=== PATIENT | female | born 1945 | race Two or more races ===

== ENCOUNTER 2020-05-04 10:56 | Outpatient (REF) | payer MEDICARE, SELFPAY ==
[2020-05-04 12:22] LABS: Free T4 (Free Thyroxine) 0.81 ng/dL (0.71-1.85); Thyroid Stimulating Hormone 1.16 mIU/mL (0.32-4.0)
== END 2020-05-04 10:57 | disposition home or self-care (01) ==
LOC: HO.LABR 10:56
PROVIDERS: PCP Internal Medicine; Visit Provider Internal Medicine Endocrinology, Diabetes & Metabolism
DX: E04.2 Nontoxic multinodular goiter (principal)
CPT/HCPCS: 36415; 84439; 84443

== ENCOUNTER 2020-05-11 10:52 | Outpatient (REF) | payer MEDICARE, SELFPAY ==
--- NOTE | 2020-05-11 11:59 | PM.OP ---
Brief Operative Note Date of procedure: 05/11/20 Pre-op diagnosis: Nontoxic multinodular goiter Post-op diagnosis: same Procedure: Fine-needle aspiration biopsy of right lower pole thyroid nodule. This procedure was explained to the patient. Alternatives, risks and benefits were discussed. Written consent was obtained. After sterile preparation of the skin, fine-needle aspiration biopsy of right lower pole thyroid nodule size 1.2 x 0.8 x 1.5 cm was performed under direct ultrasound guidance to confirm accurate needle placement. Four passes were performed with 25 gauge needles. Sample was submitted to cytology, initial cytology reading was borderline. One extra pass spent for with a 25 gauge needle. 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 Patient tolerated procedure well. Aftercare instructions were provided. Impression: uncomplicated fine-needle aspiration biopsy of Right lower pole thyroid nodule under direct ultrasound guidance. Surgeon: Jake Amaya MD Anesthesia: local ( Lidocaine 1% 2 mL) Estimated blood loss (mL): 0 Condition: stable Disposition: same day
[2020-05-11] MEDS: Lidocaine HCl 1 % MPF 5 ML VIAL SUBCUT (13:19)
== END 2020-05-11 10:53 | disposition home or self-care (01) ==
LOC: HO.US 10:52
PROVIDERS: PCP Internal Medicine; Visit Provider Internal Medicine Endocrinology, Diabetes & Metabolism
DX: E04.2 Nontoxic multinodular goiter (principal)
CPT/HCPCS: 10005; 88172; 88173; 88177

== ENCOUNTER → 2020-05-26 09:41 | Outpatient (BNVA) | payer MEDICARE, SELFPAY | PROVIDERS: PCP Internal Medicine; Referring Provider Internal Medicine; Visit Provider Internal Medicine Endocrinology, Diabetes & Metabolism | DX: E04.2 Nontoxic multinodular goiter (principal); Z79.899 Other long term (current) drug therapy | CPT/HCPCS: 99213 ==

== ENCOUNTER 2020-07-25 08:37 | Day surgery (SDC) | payer MEDICARE, SELFPAY ==
[2020-07-19 13:16] VITALS: BMI 42.7
--- NOTE | 2020-07-24 09:01 | HO.ANESPROP2 ---
HPI - Anesthesia Eval Consult details Narrative: 74yo F for Colonoscopy PMFSH Past Medical History Medical History Constipation due to opioid therapy Essential hypertension Hypovitaminosis D Insomnia Lumbar degenerative disc disease Non-toxic multinodular goiter Pure hypercholesterolemia Renal calculi UTI (urinary tract infection) Family History Family History Father Medical history unknown Mother Lung cancer Colon cancer Surgical History Surgical History History of section History of esophagogastroduodenoscopy (EGD) History of left knee replacement History of lithotripsy History of lumpectomy of left breast Hx of dilation and curettage Hx of hand surgery Social History Social History Smoking Status: Unknown if ever smoked Use of substances other than those prescribed or required for medical reasons: No Advance Directives Information Provided: No Meds Allergies Allergy/AdvReac Type Severity Reaction Status Date / Time cat dander [CAT DANDER] Allergy Mild skinrash Verified 05/22/20 11:37 mite-Dermatophagoides Allergy Mild watery Verified 05/22/20 11:37 farinae, skyla itchy [DUST MITES] eyes, sneezing Home Medications Medication Instructions Recorded Confirmed Type acetaminophen 325 mg tablet 325 mg PO BID PRN tab 05/22/20 07/19/20 History albuterol sulfate 90 mcg/actuation 1 - 2 puff PO Q4-6H PRN 05/22/20 07/19/20 History aerosol inhaler amlodipine 5 mg tablet 5 mg PO DAILY 05/22/20 07/19/20 History aspirin 81 mg tablet,delayed 81 mg PO DAILY 05/22/20 07/19/20 History release bisacodyl 5 mg tablet,delayed mg PO 05/22/20 05/26/20 History release cetirizine 10 mg tablet 10 mg PO DAILY 05/22/20 07/19/20 History fluticasone propionate 50 1 spray INTRANASAL DAILY 05/22/20 07/19/20 History mcg/actuation nasal spray,suspension furosemide 40 mg tablet 40 mg PO DAILY 05/22/20 07/19/20 History lactulose 10 gram/15 mL oral 10 g PO DAILY PRN 05/22/20 07/19/20 History solution letrozole 2.5 mg tablet 2.5 mg PO DAILY 05/22/20 07/19/20 History losartan 50 mg tablet 50 mg PO DAILY 05/22/20 07/19/20 History mometasone-formoterol HFA 100 2 puff PO BID 05/22/20 07/19/20 History mcg-5 mcg/actuation aerosol inhaler montelukast 10 mg tablet 10 mg PO DAILY 05/22/20 07/19/20 History carlycignfsl-vvyhxddy-saveei tablet 1 tab PO DAILY 05/22/20 07/19/20 History olopatadine 0.1 % eye drops 1 - 2 drp OPHTHALMIC (EYE) BID 05/22/20 07/19/20 History omega-3 fatty acids 1,000 mg 1,000 mg PO DAILY 05/22/20 07/19/20 History capsule omeprazole 20 mg capsule,delayed 20 mg PO DAILY 05/22/20 07/19/20 History release pyridoxine (vitamin B6) 100 mg 100 mg PO DAILY 05/22/20 07/19/20 History tablet sertraline 100 mg tablet 3 mg PO Q OTHER DAY PRN 05/22/20 07/19/20 History tiotropium bromide 18 mcg capsule 1 cap INHALATION DAILY 05/22/20 07/19/20 History with inhalation device tizanidine 4 mg tablet 4 mg PO TID 05/22/20 07/19/20 History trazodone 150 mg tablet 150 mg PO BEDTIME 05/22/20 07/19/20 History cholecalciferol (vitamin D3) 25 25 mcg PO DAILY 05/23/20 07/19/20 History mcg (1,000 unit) capsule sertraline 25 mg tablet 25 mg PO DAILY 05/26/20 07/19/20 History Exam Exam Date and Time: July 24, 2020 09 Height,Weight and Vital Signs: Height 5 ft 4 in Weight 112.945 kg Pertinent Lab Results Pertinent Lab Results: Laboratory Tests 03/24/20 03/24/20 10:22 10:22 WBC 5.2 Hgb 11.0 L Hct 36.2 L Plt Count 178 Sodium 140 Potassium 4.1 Chloride 102 BUN 19 H Creatinine 1.09 Assessment and Plan Assessment Anesthesia Assessment: Chart Reviewed
[2020-07-25 09:01] VITALS: BP 139/89; PULSE 77; RESP 18; TEMP 36.2; O2SAT 96
[2020-07-25] MEDS: Lactated Ringers 1,000 ML 100 ML IVCONT (09:15)
--- NOTE | 2020-07-25 09:15 | P.OP_ITS ---
Operative Note Operative Note Date of Service: 07/25/20 Narrative: Pre-op diagnosis: screening Post-op diagnosis: other (polyps, diverticulosis, hemorrhoids) Procedure: COLONOSCOPY TILL CECUM WITH BIOPSIES AND SNARE POLYPECTOMY AND SUBMUCOSAL INJECTION Consent: Indications for the procedure and potential complications of bleeding, perforation, reaction to medications and missed diagnosis were discussed with the patient and informed consent was obtained. Instrument: Olympus PCF H 190 L variable stiffness pediatric colonoscope Monitoring: Vital signs and clinical assessment, intermittent blood pressure monitoring, continuous EKG monitoring, Pulse oximetry and Carbon Dioxide monitoring were done throughout the procedure. Colon withdrawl time was 42 minutes. Procedure: The patient was placed in the left lateral decubitis position and pre-procedure medications were administered. After a digital rectal examination of the ano-rectum, the video colonoscope was inserted into the rectum and advanced through the colon to the cecum. The colonoscope was slowly withdrawn in a retrograde panoramic fashion and the colon mucosa was carefully examined including a retroflexed view of the rectum. Findings and interventions are described below. Procedure Difficulty: Colon was long and tortuous and there was spasm and recurrent loop formation. LLQ pressure applied to intubate the transverse colon/cecum Findings: Terminal Ileum: Not evaluated Cecum: A 7-8 mm sessile polyp seen on initial intubation of the cecum and raised with 3 cc of normal saline. Colonoscope pushed back into the AC due to colon spasm and polyp was not visualized on subsequent intubation of the cecum. Ascending Colon: Two 10-15 mm sessile polyps removed with a hot snare - (one polyp was not retrieved) and moderate diverticulosis. Transverse Colon: Two 10-12 mm sessile polyps removed with a hot snare and moderate diverticulosis. Descending Colon: Moderate diverticulosis Sigmoid Colon: A 10 mm sessile polyp removed with a hot snare and a 4-5 mm sessile polyp removed with a cold bx. Moderate diverticulosis Rectum: Normal Ano-rectum: Moderate internal hemorrhoids Colon preparation: Fair despite copious irrigation Impression and Post Procedure Diagnosis: Colonoscopy Findings: Six polyps removed - one not retreived. Cecal polyp briefly visualized and not removed. Moderate diverticulosis seen in the entire colon Moderate hemorrhoids on retroflexed exam. Plan: Await pathology results Patient has an appointment on 08/15/20 in the [facility] with [facility] Tilley. Repeat Colonoscopy interval based on path results - in 12 months due to fair prep and cecal polyp which was could not be removed (adult colonoscope for future colonoscopies). Above findings were reviewed with the patient and colon polyps and d iverticulosis handouts were given in the discharge area Surgeon: Faizan Avila MD Anesthesia: MAC (Neeta Beauchamp CRNA & Dr Ellis) Estimated blood loss (mL): 0 Pathology: other (A. AC polyps x1, B. TC polyps x 2, C. SC polyp x 2) Condition: stable Disposition: PACU
--- NOTE | 2020-07-25 09:15 | MHC.SHP ---
Pre-Procedural Eval Section B Chief Complaint: FHX OF COLON CANCER Relevant Family History (Specify if Yes): Yes Relevant Social History: None Present Medications: see Short Stay Collaborative assessment Medical History: Significant History ( Left breast Invasive Ductal Carcinoma. Dysphasia. Snoring (no sleep study on file). Obesity. Asthma-controlled. Hypertension. Hypercholesterolemia. Osteoarthritis. gastroesophageal reflux disease (GERD). chronic obstructive pulmonary di) History of Previous Operations: Relevant previous surgery/procedure and date(s) (Colonoscopy (while incarcerated) 2010 section left knee replacement carpal tunnel release Left breast needle localized lumpectomy and sentinel node excision ([facility]) 11/2016 port placed right chest 01/2017 chest port removed 03/2018 Right long trigger finger release 02/17/2019 ) Allergies: Allergies Allergy/AdvReac Type Severity Reaction Status Date / Time cat dander [CAT DANDER] Allergy Mild skinrash Verified 05/22/20 11:37 mite-Dermatophagoides Allergy Mild watery Verified 05/22/20 11:37 farinae, skyla itchy [DUST MITES] eyes, sneezing Review of Systems Sugical H&P ROS: Negative: Constitution, Cardiovascular and Respiratory and Yes, Specify: Gastrointestinal (constipation) Exam Surgical H&P Exam: Normal: Heart, Normal: Lungs and Normal: Abdomen Plan Diagnosis/Plan: Unchanged I have reviewed the history and physical and performed a pertinent physical examination on my patient. No changes have occurred unless specified.
[2020-07-25 10:25] VITALS: BP 123/78; PULSE 70; RESP 16; TEMP 37.4; O2SAT 98
[2020-07-25 10:30] VITALS: BP 133/81; PULSE 70; RESP 16; O2SAT 97
[2020-07-25 10:35] VITALS: BP 127/78; PULSE 89; RESP 16; O2SAT 97
[2020-07-25 10:40] VITALS: BP 164/95; PULSE 68; RESP 16; TEMP 36.7; O2SAT 95
[2020-07-25 10:54] VITALS: BP 130/73; PULSE 77; RESP 16; O2SAT 97
--- NOTE | 2020-07-25 11:42 | PC.NURSE ---
[employer] SPECIALIST USED FOR INSTRUCTIONS DR BENNETT ALSO SPOKE TO PT IN DISCHARGE AREA
--- NOTE | 2020-07-25 11:54 | HO.POSTANES ---
Post Anesthesia Evaluation Post Anesthesia Evaluation Vital Signs: Vital Signs Temp Pulse Resp BP Pulse Ox 07/25/20 10:54 98.1 F 77 16 130/73 97 07/25/20 10:40 98.1 F 68 16 164/95 H 95 07/25/20 10:35 89 16 127/78 97 07/25/20 10:30 70 16 133/81 97 07/25/20 10:25 99.4 F 70 16 123/78 98 07/25/20 09:01 97.1 F 77 18 139/89 96 Anesthesia: Monitored Mental Status: Awake Pain Control: Satisfactory Nausea/Vomiting: None Hydration: Adequate Anesthesia-Related Issues: No Anes. Related Issues
== END 2020-07-25 11:32 | disposition home or self-care (01) ==
PROVIDERS: PCP Internal Medicine; Visit Provider Internal Medicine Gastroenterology
PROC: 0DJD8ZZ Inspection of Lower Intestinal Tract, Via Natural or Artificial Opening Endoscopic (ICD-10-PCS; CPT 45378; principal; 2020-07-25 09:30)
DX: Z12.11 Encounter for screening for malignant neoplasm of colon (principal); Z80.0 Family history of malignant neoplasm of digestive organs; D12.2 Benign neoplasm of ascending colon; D12.3 Benign neoplasm of transverse colon; D12.5 Benign neoplasm of sigmoid colon; K59.00 Constipation, unspecified; I10 Essential (primary) hypertension; E55.9 Vitamin D deficiency, unspecified; C50.912 Malignant neoplasm of unspecified site of left female breast; Z79.811 Long term (current) use of aromatase inhibitors; Z79.82 Long term (current) use of aspirin; Z79.899 Other long term (current) drug therapy; Z85.3 Personal history of malignant neoplasm of breast; Z96.652 Presence of left artificial knee joint
CPT/HCPCS: 45385; 45380; 45381; 88305; J2370; J2765

== ENCOUNTER → 2020-08-15 09:01 | Outpatient (BNVA) | payer MEDICARE, SELFPAY | PROVIDERS: PCP Internal Medicine; Visit Provider Physician Assistant | DX: Z76.89 Persons encountering health services in other specified circumstances (principal) | CPT/HCPCS: Q3014 ==

== ENCOUNTER 2020-10-10 10:37 | Outpatient (REF) | payer MEDICARE, SELFPAY ==
--- NOTE | ~2020-10-10 | MM_ITS ---
EXAMINATION: MM DIAGNOSTIC DIGITAL BREAST TOMOSYNTHESIS, BILATERAL CLINICAL INFORMATION: Due for yearly exam. Prior history left invasive ductal cancer 2017. Also follow-up probable benign dystrophic calcifications in region of scar. COMPARISON: Mammography: 01/13/2020, 10/11/2019, 04/07/2019, 10/06/2018 (calcifications, BI-RADS 3), 10/03/2017, 09/20/2016. TECHNIQUE: Digital breast tomosynthesis is performed in both the craniocaudal and mediolateral oblique views along with computer-aided detection (CAD). Synthesized 2D images are generated from the tomosynthesis. Additional views are obtained: Magnification left CC x2, magnification left ML x3. FINDINGS: There are scattered areas of fibroglandular density (ACR BI-RADS breast composition Category b). The right breast shows no interval mass or architectural abnormality. There are no abnormal calcifications. No significant changes from prior studies. There are post therapy changes left breast with stable scarring upper outer quadrant. Some increased benign-appearing round calcifications as well as coarse calcifications are noted in the scar. Calcifications will be reassessed again with magnification views at time of next bilateral annual mammography. The initial cancer at this site was spiculated mass without calcification. The remainder of the left breast is unremarkable. Results are provided to the patient at time of visit by the technologist. MM/MM tomosynthesis diagnostic BI IMPRESSION: 1. Left: Post therapy changes with benign-appearing calcifications in scar. 2. Right: No mammographic evidence of malignancy. ASSESSMENT: BI-RADS 3: Probably Benign RECOMMENDATION: Diagnostic mammography at time of next annual exam, due in 12 months. This patient's information was entered into a reminder system with a target due date for their next mammogram.
== END 2020-10-10 10:38 | disposition home or self-care (01) ==
LOC: HO.MAMMO 10:37
PROVIDERS: Visit Provider Internal Medicine Medical Oncology
DX: R92.1 Mammographic calcification found on diagnostic imaging of breast (principal)
CPT/HCPCS: 77062; 77066

== ENCOUNTER → 2020-10-18 10:30 | Outpatient (BNVA) | payer MEDICARE, SELFPAY | PROVIDERS: PCP Internal Medicine; Visit Provider Surgery | DX: C50.912 Malignant neoplasm of unspecified site of left female breast (principal) | CPT/HCPCS: 99212 ==

== ENCOUNTER 2020-11-22 08:21 | Outpatient (REF) | payer MEDICARE, SELFPAY ==
--- NOTE | ~2020-11-22 | XR_ITS ---
EXAMINATION: XR BOTH KNEES AP STANDING XR RIGHT KNEE, 2 VIEWS CLINICAL INFORMATION: Right knee pain COMPARISON: 09/16/2018 TECHNIQUE: Standing AP view of both knees and lateral and sunrise views of the right knee. FINDINGS: LEFT KNEE: Prosthetic components of the left total knee arthroplasty are appropriately aligned without periprosthetic fracture or abnormal lucency. No component migration. RIGHT KNEE: Severe medial compartment osteoarthritis is characterized by marked nonuniform joint space narrowing with marginal osteophytes and subchondral sclerosis. This is more pronounced as compared to the prior study. More moderate osteoarthritis is present in the patellofemoral compartment and mild osteoarthritis in the lateral compartment. Varus angulation is present at the right knee. No fractures. No joint effusion. Bones are osteopenic. A small 5 mm osseous fragment is present near the lateral tibial spine, possibly a loose body. XR/XR knee RT 2V IMPRESSION: Progression of the severe medial compartment osteoarthritis in the right knee with varus angulation. More moderate and mild osteoarthritis in the patellofemoral and lateral compartments, respectively.
--- NOTE | ~2020-11-22 | XR_ITS ---
EXAMINATION: XR BOTH KNEES AP STANDING XR RIGHT KNEE, 2 VIEWS CLINICAL INFORMATION: Right knee pain COMPARISON: 09/16/2018 TECHNIQUE: Standing AP view of both knees and lateral and sunrise views of the right knee. FINDINGS: LEFT KNEE: Prosthetic components of the left total knee arthroplasty are appropriately aligned without periprosthetic fracture or abnormal lucency. No component migration. RIGHT KNEE: Severe medial compartment osteoarthritis is characterized by marked nonuniform joint space narrowing with marginal osteophytes and subchondral sclerosis. This is more pronounced as compared to the prior study. More moderate osteoarthritis is present in the patellofemoral compartment and mild osteoarthritis in the lateral compartment. Varus angulation is present at the right knee. No fractures. No joint effusion. Bones are osteopenic. A small 5 mm osseous fragment is present near the lateral tibial spine, possibly a loose body. XR/XR knee standing BI IMPRESSION: Progression of the severe medial compartment osteoarthritis in the right knee with varus angulation. More moderate and mild osteoarthritis in the patellofemoral and lateral compartments, respectively.
== END 2020-11-22 08:22 | disposition home or self-care (01) ==
LOC: HO.HOSX 08:21
PROVIDERS: Visit Provider Physician Assistant
DX: M17.11 Unilateral primary osteoarthritis, right knee (principal); M25.561 Pain in right knee; M25.562 Pain in left knee; G89.29 Other chronic pain; K59.03 Drug induced constipation; T40.2X5A Adverse effect of other opioids, initial encounter; J30.81 Allergic rhinitis due to animal (cat) (dog) hair and dander; J30.89 Other allergic rhinitis; E78.5 Hyperlipidemia, unspecified; E55.9 Vitamin D deficiency, unspecified; Z96.652 Presence of left artificial knee joint
CPT/HCPCS: 20610; 73560; 73565; 99212; J1040

== ENCOUNTER → 2020-12-01 10:59 | Outpatient (BNVA) | payer MEDICARE, SELFPAY | PROVIDERS: PCP Internal Medicine; Visit Provider Urology | CPT/HCPCS: Q3014 ==

== ENCOUNTER 2020-12-20 07:11 | Day surgery (SDC) | payer MEDICARE, SELFPAY ==
[2020-12-14 09:46] VITALS: BMI 42.7
--- NOTE | 2020-12-19 09:44 | HO.ANESPROP2 ---
Documented by User: Chloe Jacksonney 12/19/20 09:45 HPI - Anesthesia Eval Consult details Narrative: 74yo F for Left ESWL PMFSH Active Problems Active Problems: All Active Problems (Updated 12/01/20 @ 11:07 by Chun Ocampo MD) Diverticulosis (Acute) History of colon polyps (Acute) 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) Osteoarthritis of right knee (Acute) Dyslipidemia (Acute) Right knee pain (Acute) Tremor of left hand (Acute) Non-toxic multinodular goiter (Acute) UTI (urinary tract infection) (Acute) Lumbar degenerative disc disease (Acute) Hypovitaminosis D (Acute) Insomnia (Acute) Constipation due to opioid therapy (Acute) Essential hypertension (Acute) Past Medical History Medical History Constipation due to opioid therapy Dyslipidemia Essential hypertension Hypovitaminosis D Insomnia Lumbar degenerative disc disease Non-toxic multinodular goiter Renal calculi Right knee pain Tremor of left hand UTI (urinary tract infection) Family History Family History Father Medical history unknown Mother Lung cancer Colon cancer Surgical History Surgical History H/O colonoscopy History of section History of esophagogastroduodenoscopy (EGD) History of left knee replacement History of lithotripsy History of lumpectomy of left breast Hx of dilation and curettage Hx of hand surgery Social History Social History Household Members Other:: daughter Smoking Status: Never smoker Use of substances other than those prescribed or required for medical reasons: No Have you been hit, kicked, punched, or otherwise hurt by someone within the past year? If so, by whom?: No Are you DNR?: No Advance Directives Information Provided: No Nutrition Risks: Surgical patient >75years 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al status: unemployed Meds Allergies Allergy/AdvReac Type Severity Reaction Status Date / Time cat dander [CAT DANDER] Allergy Mild skinrash Verified 11/22/20 11:09 mite-Dermatophagoides Allergy Mild watery Verified 11/22/20 11:09 farinae, skyla itchy [DUST MITES] eyes, sneezing Home Medications Medication Instructions Recorded Confirmed Last Taken Type acetaminophen 325 mg tablet 325 mg PO BID PRN tab 05/22/20 12/14/20 Unknown History amlodipine 5 mg tablet 5 mg PO DAILY 05/22/20 12/14/20 07/25/20 06:00 History aspirin 81 mg tablet,delayed 81 mg PO DAILY 05/22/20 12/14/20 07/25/20 06:00 History release cetirizine 10 mg tablet 10 mg PO DAILY 05/22/20 12/14/20 Unknown History fluticasone propionate 50 1 spray INTRANASAL DAILY 05/22/20 12/14/20 Unknown History mcg/actuation nasal spray,suspension furosemide 40 mg tablet 40 mg PO DAILY 05/22/20 12/14/20 Unknown History lactulose 10 gram/15 mL oral 10 g PO DAILY PRN 05/22/20 12/14/20 Unknown History solution letrozole 2.5 mg tablet 2.5 mg PO DAILY 05/22/20 12/14/20 Unknown History montelukast 10 mg tablet 10 mg PO DAILY 05/22/20 12/14/20 Unknown History okzawaxuoutw-ciooglgx-uidowv tablet 1 tab PO DAILY 05/22/20 12/14/20 Unknown History olopatadine 0.1 % eye drops 1 - 2 drp OPHTHALMIC (EYE) BID 05/22/20 12/14/20 Unknown History omega-3 fatty acids 1,000 mg 1,000 mg PO DAILY 05/22/20 12/14/20 Unknown History capsule pyridoxine (vitamin B6) 100 mg 100 mg PO DAILY 05/22/20 12/14/20 Unknown History tablet sertraline 100 mg tablet 150 mg PO DAILY 05/22/20 12/14/20 Unknown History tizanidine 4 mg tablet 4 mg PO TID 05/22/20 12/14/20 Unknown History trazodone 150 mg tablet 150 mg PO BEDTIME 05/22/20 12/14/20 Unknown History cholecalciferol (vitamin D3) 25 25 mcg PO DAILY 05/23/20 12/14/20 Unknown History mcg (1,000 unit) capsule Exam Exam Date and Time: December 19, 2020 0944 Height,Weight and Vital Signs: Height 5 ft 4 in Weight 112.945 kg Pertinent Lab Results Pertinent Lab Results: Laboratory Tests 09/25/20 09/25/20 10:23 10:23 WBC 4.5 L Hgb 11.0 L Hct 36.2 L Plt Count 179 Sodium 144 Potassium 4.7 Chloride 104 Carbon Dioxide 33 H BUN 15 Creatinine 0.96 Assessment and Plan Assessment Anesthesia Assessment: Chart Reviewed Documented by User: Ryne Dunaway MD 12/20/20 09:40 PMFSH Past Medical History Medical History Constipation due to opioid therapy Dyslipidemia Essential hypertension Hypovitaminosis D Insomnia Lumbar degenerative disc disease Non-toxic multinodular goiter Renal calculi Right knee pain Tremor of left hand UTI (urinary tract infection) Family History Family History Father Medical history unknown Mother Lung cancer Colon cancer Surgical History Surgical History H/O colonoscopy History of section History of esophagogastroduodenoscopy (EGD) History of left knee replacement History of lithotripsy History of lumpectomy of left breast Hx of dilation and curettage Hx of hand surgery Social History Social History Household Members Other:: daughter Smoking Status: Never smoker Use of substances other than those prescribed or required for medical reasons: No Have you been hit, kicked, punched, or otherwise hurt by someone within the past year? If so, by whom?: No Are you DNR?: No Advance Directives Information Provided: No Nutrition Risks: Surgical patient >75years 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al status: unemployed Meds Allergies Allergy/AdvReac Type Severity Reaction Status Date / Time cat dander [CAT DANDER] Allergy Mild skinrash Verified 11/22/20 11:09 mite-Dermatophagoides Allergy Mild watery Verified 11/22/20 11:09 farinae, skyla itchy [DUST MITES] eyes, sneezing Home Medications Medication Instructions Recorded Confirmed Last Taken Type acetaminophen 325 mg tablet 325 mg PO BID PRN tab 05/22/20 12/14/20 Unknown History amlodipine 5 mg tablet 5 mg PO DAILY 05/22/20 12/14/20 07/25/20 06:00 History aspirin 81 mg tablet,delayed 81 mg PO DAILY 05/22/20 12/14/20 07/25/20 06:00 History release cetirizine 10 mg tablet 10 mg PO DAILY 05/22/20 12/14/20 Unknown History fluticasone propionate 50 1 spray INTRANASAL DAILY 05/22/20 12/14/20 Unknown History mcg/actuation nasal spray,suspension furosemide 40 mg tablet 40 mg PO DAILY 05/22/20 12/14/20 Unknown History lactulose 10 gram/15 mL oral 10 g PO DAILY PRN 05/22/20 12/14/20 Unknown History solution letrozole 2.5 mg tablet 2.5 mg PO DAILY 05/22/20 12/14/20 Unknown History montelukast 10 mg tablet 10 mg PO DAILY 05/22/20 12/14/20 Unknown History iybyjtbcejwr-pfkcztty-crewrl tablet 1 tab PO DAILY 05/22/20 12/14/20 Unknown History olopatadine 0.1 % eye drops 1 - 2 drp OPHTHALMIC (EYE) BID 05/22/20 12/14/20 Unknown History omega-3 fatty acids 1,000 mg 1,000 mg PO DAILY 05/22/20 12/14/20 Unknown History capsule pyridoxine (vitamin B6) 100 mg 100 mg PO DAILY 05/22/20 12/14/20 Unknown History tablet sertraline 100 mg tablet 150 mg PO DAILY 05/22/20 12/14/20 Unknown History tizanidine 4 mg tablet 4 mg PO TID 05/22/20 12/14/20 Unknown History trazodone 150 mg tablet 150 mg PO BEDTIME 05/22/20 12/14/20 Unknown History cholecalciferol (vitamin D3) 25 25 mcg PO DAILY 05/23/20 12/14/20 Unknown History mcg (1,000 unit) capsule Assessment and Plan Assessment Anesthesia Assessment: Anesthesia Plan Discussed and Chart Reviewed Final Anesthetic Review NPO: Yes ASA Class: III Final Preanesthetic Review: No Changes in Pt Med Stat, Meds/Allgs Chart Reviewed, Consent Obtained/Reviewed and Anes Risks/Benef Reviewed Patient Risk: High Procedure Risk: Low Anesthetic Plan Anesthetic Plan: GA Disposition: Standard PACU
[2020-12-20] VITALS (7 sets, daily range): BP systolic 166–182; BP diastolic 76–90; PULSE 67–71; RESP 16–18; TEMP 36.7; O2SAT 94–99
--- NOTE | ~2020-12-20 | XR_ITS ---
EXAMINATION: XR ABDOMEN KUB CLINICAL INDICATION: Stones. COMPARISON: Ultrasound kidneys 08/19/2019. TECHNIQUE: AP view of the abdomen. FINDINGS: There is a 7 mm radiopaque calculi in the lower pole calyx right kidney. No additional radiopaque calculus in the right kidney. There are surgical rebecca in the right upper quadrant from previous cholecystectomy. The left kidney is completely masked with stool in the colon overlying it. XR/XR KUB IMPRESSION: 7 mm radiopaque calculi lower pole right kidney. This was noted on the previous ultrasound exam 08/19/2019.
[2020-12-20 08:27] LABS: MANUAL DIFF FLAG NO
[2020-12-20 08:29] LABS: Basophils Percent Auto 0.4 % (0-2); Eosinophils Absolute Auto 0.2 X10*3/uL (0.0-0.4); Eosinophils Percent Auto 3.4 % (0-4); Hemoglobin 10.5 g/dl (12.0-16.0); Imm Gran Abs Auto 0.01 X10*3/uL (0.00-0.03); Imm Gran Pct Auto 0.2 % (0.0-0.4); Lymphocytes Absolute Auto 0.8 X10*3/uL (1.2-4.9); Mean Corpuscular HGB Conc 30.9 g/dl (31.0-35.0); Mean Corpuscular Hemoglobin 29.2 pg (27.0-33.0); Mean Corpuscular Volume 94.7 fL (80-98); Monocytes Absolute Auto 0.4 X10*3/uL (0.1-1.2); Monocytes Percent Auto 7.3 % (2-11); Neutrophils Absolute Auto 3.4 X10*3/uL (2.0-8.3); Neutrophils Percent Auto 71.7 % (45-73); Platelet Count 155 X10*3/uL (160-400); Red Blood Count 3.59 X10*6/uL (4.20-5.50); Red Cell Distribution Width 14.4 % (11.0-16.0); White Blood Count 4.8 X10*3/uL (4.8-10.8)
[2020-12-20 08:35] LABS: Prothrombin Time 11.3 SEC (10.8-13.0)
[2020-12-20] MEDS: Lactated Ringers 1,000 ML 100 ML IVCONT (09:12)
--- NOTE | 2020-12-20 09:35 | MHC.SHP ---
Pre-Procedural Eval Section A The patient is an INPATIENT: No Changes since office visit: No Cold of Flu in the past 2 weeks, No New Medical Problems, No Changes in Medication and No Patient answered all questions The History & Physical has been completed within 30 days and I have reviewed it.: Yes Section B Chief Complaint: kidney stone Allergies: Allergies Allergy/AdvReac Type Severity Reaction Status Date / Time cat dander [CAT DANDER] Allergy Mild skinrash Verified 11/22/20 11:09 mite-Dermatophagoides Allergy Mild watery Verified 11/22/20 11:09 farinae, skyla itchy [DUST MITES] eyes, sneezing Plan Diagnosis/Plan: Change (Pain predominant right side. Imaging confirms right side larger stone. Right ESWL) I have reviewed the history and physical and performed a pertinent physical examination on my patient. No changes have occurred unless specified.
--- NOTE | 2020-12-20 10:26 | W.PM.OPN ---
Operative Note Operative Note Date of Service: 12/20/20 Narrative: PreOperative Diagnosis: right Renal stones Post Operative Diagnosis: right Renal stones Procedure: ESWL Surgeon: Dr Chun Ocampo Anesthesia: mac/sedation Indications for procedure: They understand ESWL may be a staged procedure and subsequent intervention may be required based on imaging after ESWL. They also understand there is a risk of bleeding, infection, damage to adjacent organs. Procedure: After informed consent was verified the patient was brought to the operating room and placed in a supine position. Anesthesia was performed per protocol. Safety pause time-out was performed. Imaging was in the room and laterality confirmed. - right 9mm stone ESWL was performed. The 1st 500 shocks were performed at 60 hertz. These were performed with increasing power. Once maximum power was reached the rate was increased to 180 hertz. A total of 2500 shocks were given. Fluoroscopy showed stone disintegration. They tolerated procedure well and was transferred to the recovery area upon completion.
[2020-12-20] MEDS: hydrALAZINE HCl 20 MG/ML VIAL 10 MG IVPUSH (10:43)
== END 2020-12-20 11:51 | disposition home or self-care (01) ==
LOC: HO.SSS 07:11
PROVIDERS: PCP Internal Medicine; Visit Provider Urology
PROC: (CPT 50590; principal; 2020-12-20 09:10)
DX: N20.0 Calculus of kidney (principal); Z87.442 Personal history of urinary calculi; Z87.440 Personal history of urinary (tract) infections; I10 Essential (primary) hypertension; E55.9 Vitamin D deficiency, unspecified; R25.1 Tremor, unspecified; Z79.82 Long term (current) use of aspirin; Z79.899 Other long term (current) drug therapy
CPT/HCPCS: 50590; 36415; 74018; 85025; 85610; J2405; J3010

== ENCOUNTER 2021-01-04 09:49 | Outpatient (REF) | payer MEDICARE, SELFPAY ==
--- NOTE | ~2021-01-04 | US_ITS ---
EXAMINATION: US RETROPERITONEAL LIMITED (RENAL ONLY) CLINICAL INFORMATION: Calculus of kidney. COMPARISON: Renal ultrasound 08/19/2019, CT abdomen and pelvis noncontrast 10/17/2018. TECHNIQUE: Real-time imaging of the kidneys. FINDINGS: RIGHT KIDNEY: 10.2 x 5.3 x 6.1 cm (SAG x AP x TRV). The renal parenchymal thickness is within normal. There is normal renal parenchymal echogenicity. No hydronephrosis or caliectasis. There are numerous specular echoes in the mid and lower renal sinus, possibly fragmented calculi. There is twinkling artifact from the lower pole foci. No dominant calculus demonstrated. There are 3 renal cysts again demonstrated, largest is simple upper pole 3.7 x 3.6 x 3.3 cm. Prior ultrasound measurements 3.5 x 3.3 x 3.2 cm. There is also a lower pole cyst with fine avascular internal septation measuring 2.4 x 2.4 x 2.3 cm. Prior ultrasound measurements 2.7 x 2.6 x 2.5 cm. Smallest cyst is interpolar measuring 1.4 cm x 1.4 x 1.4 cm. Prior ultrasound measurement 0.9 cm. LEFT KIDNEY: 11.1 x 4.6 x 5.6 cm (SAG x AP x TRV). The left kidney shows normal renal parenchymal thickness and echogenicity. There is no hydronephrosis or caliectasis or visible calculi. There are 2 simple cysts, the larger interpolar measuring 3.0 x 2.2 x 1.8 cm. Prior ultrasound measurements are 2.0 x 1.6 x 1.4 cm. The other cyst is close to the midpole measuring under 1 cm similar to prior exam. US/US renal BI IMPRESSION: 1. Right: No hydronephrosis or caliectasis. Suspect fragmented punctate calculi. No dominant calculus appreciated by ultrasound. Renal cysts without significant change. 2. Left: No hydronephrosis, caliectasis, or visible calculi. Renal cysts without significant change.
== END 2021-01-04 09:50 | disposition home or self-care (01) ==
LOC: HO.HMGCX 09:49
PROVIDERS: PCP Internal Medicine; Visit Provider Urology
DX: N20.0 Calculus of kidney (principal)
CPT/HCPCS: 76775

== ENCOUNTER 2021-01-10 11:13 | Outpatient (REF) | payer MEDICARE, SELFPAY | END 2021-01-10 11:14 | disposition home or self-care (01) | LOC: HO.LNP 11:13 | PROVIDERS: PCP Internal Medicine; Visit Provider Urology | DX: Z48.816 Encounter for surgical aftercare following surgery on the genitourinary system (principal); N39.0 Urinary tract infection, site not specified | CPT/HCPCS: 87086; 87088; 87186; Q3014 ==

== ENCOUNTER 2021-03-07 07:55 | Outpatient (REF) | payer MEDICARE, SELFPAY ==
[2021-03-07 09:45] LABS: Alanine Aminotransferase 10 U/L (0-31); Albumin Level 4.4 g/dL (3.5-5.0); Alkaline Phosphatase 60 U/L (39-117); Anion Gap 12 (12-20); Aspartate Amino Transferase 14 U/L (5-31); Bilirubin Total 0.5 mg/dL (0.0-1.0); Blood Urea Nitrogen 15 mg/dL (9-16); Calcium 9.9 mg/dL (8.4-10.2); Carbon Dioxide 32 mmol/L (22-29); Chloride 105 mmol/L (96-108); Cholesterol 215 mg/dL; Estimated Glomerular Filt Rate 53; Glucose Fasting 96 mg/dL (60-99); HDL Cholesterol 55 mg/dL; LDL Cholesterol Calculated 146 mg/dl; Potassium 4.8 mmol/L (3.3-5.1); Sodium 144 mmol/L (135-145); Total Protein 7.3 g/dL (6.5-8.0); Triglycerides 74 mg/dL
[2021-03-07 09:49] LABS: Free T4 (Free Thyroxine) 0.88 ng/dL (0.71-1.85); Thyroid Stimulating Hormone 2.16 uIU/mL (0.32-4.0)
== END 2021-03-07 07:56 | disposition home or self-care (01) ==
LOC: HO.LAB 07:55
PROVIDERS: Internal Medicine Endocrinology, Diabetes & Metabolism; PCP Internal Medicine; Visit Provider Internal Medicine
DX: E04.2 Nontoxic multinodular goiter (principal); E78.5 Hyperlipidemia, unspecified
CPT/HCPCS: 36415; 80053; 80061; 84439; 84443

== ENCOUNTER → 2021-03-15 10:00 | Outpatient (BNVA) | payer MEDICARE, SELFPAY | PROVIDERS: PCP Internal Medicine; Visit Provider Physician Assistant | DX: K59.03 Drug induced constipation (principal); T40.2X5A Adverse effect of other opioids, initial encounter; R63.4 Abnormal weight loss; Z86.010 Personal history of colon polyps | CPT/HCPCS: 99212 ==

== ENCOUNTER 2021-04-11 08:22 | Outpatient (REF) | payer MEDICARE, SELFPAY ==
--- NOTE | ~2021-04-11 | MM_ITS ---
EXAMINATION: BONE DENSITOMETRY CLINICAL INDICATION: Osteopenia. History of breast cancer, on aromatase inhibitor. COMPARISON: Previous BD dated 09/05/2017 and baseline BD dated 01/24/2015. KUB 12/20/2020. TECHNIQUE: Using a [employer] DXA System (software version: 13.1) manufactured by [employer], dual-energy x-ray absorptiometry was performed of the lumbar spine and left hip. The images are of good technical quality. Summary results are attached. FINDINGS: AP SPINE L2-L4 (excluding L1): The data of L1-L4 has been changed to exclude the L1 vertebral body, because degenerative changes at this level may cause overestimation of lumbar spine density. Current: BMD 1.149 g/cm2, Z-score 0.2, T-score -0.4, normal, 4.5% increase from previous, 15.4% increase from baseline (<5% change is not significant). Prior: BMD 1.100 g/cm2. Baseline: BMD 0.996 g/cm2. LEFT FEMUR, NECK: Current: BMD 0.800 g/cm2, Z-score -0.4, T-score -1.7, osteopenia. Prior: BMD 0.828 g/cm2. Baseline: BMD 0.856 g/cm2. LEFT FEMUR, TOTAL: Current: BMD 0.940 g/cm2, Z-score 0.5, T-score -0.5, normal, 0.5% decrease from previous, 1.2% increase from baseline (<5% change is not significant). Prior: BMD 0.945 g/cm2. Baseline: BMD 0.929 g/cm2. IDENTIFIED RISK FACTORS: Menopause, height loss, osteoporosis, anticonvulsant. HISTORY OF FRACTURE: None listed. MEDICATIONS: Calcium, vitamin D. MM/XR DEXA axial skeleton IMPRESSION: 1. DIAGNOSIS: Osteopenia based on the lowest T-score value of -1.7 in the femoral neck applying World Health Organization criteria. 2. 10-YEAR FRACTURE RISK PREDICTION, FRAX: Major osteoporotic fracture (clinical spine, forearm, hip or shoulder) 6.6%. Hip fracture 1.4%. 3. Treatment Recommendations: NOF guidelines recommend consideration for treatment in postmenopausal women and men age 50 and older presenting with the following: -A hip or vertebral (clinical or morphometric) fracture. -T-score less than or equal to -2.5 at the femoral neck or spine after appropriate evaluation to exclude secondary causes. -Low bone mass at the hip or spine and a 10-year fracture probability by FRAX of greater than or equal to 3% for hip fracture or greater than or equal to 20% for major osteoporotic fracture based on the [place] adapted WHO algorithm. 4. Other Recommendations: All treatment decisions require clinical judgment and consideration of individual patient factors, including patient preferences, comorbidities, previous drug use, risk factors not captured in the FRAX model (e.g. frailty, falls, vitamin D deficiency, increased bone turnover, interval significant decline in bone density) and possible under or overestimation of fracture risk by FRAX. Additional medical evaluation for secondary cause of low bone mineral density may be appropriate. FUTURE SCAN RECOMMENDATION: People with diagnosed cases of osteoporosis or at high risk for fracture should have regular bone mineral density tests. For patients eligible for Medicare, routine testing is allowed once every 2 years. The testing frequency can be increased to one year for patients who have rapidly progressing disease, those who are receiving or discontinuing medical therapy to restore bone mass, or have additional risk factors.
== END 2021-04-11 08:23 | disposition home or self-care (01) ==
LOC: HO.MAMMO 08:22
PROVIDERS: Visit Provider Internal Medicine
DX: Z13.820 Encounter for screening for osteoporosis (principal); M85.80 Other specified disorders of bone density and structure, unspecified site; Z78.0 Asymptomatic menopausal state; Z79.899 Other long term (current) drug therapy
CPT/HCPCS: 77080

== ENCOUNTER → 2021-04-19 11:37 | Outpatient (BNVA) | payer MEDICARE, SELFPAY | PROVIDERS: PCP Internal Medicine; Referring Provider Internal Medicine; Visit Provider Surgery | DX: C50.912 Malignant neoplasm of unspecified site of left female breast (principal) | CPT/HCPCS: 99212 ==

== ENCOUNTER 2021-05-17 09:43 | Outpatient (REF) | payer MEDICARE, SELFPAY ==
--- NOTE | 2021-05-17 | PFT_ITS ---
Forced vital capacity and FEV1 are moderately reduced. FEV1/FVC ratio is normal. [id number] is normal and MVV moderately reduced. Post bronchodilator therapy, there is a slight improvement in FVC and [id number]. Total lung capacity is slightly decreased. Residual volume normal. Diffusion capacity is slightly decreased. CONCLUSION: 1. Mild restrictive pulmonary disorder. 2. There is no significant obstructive airway disorder except for the fact that there is a mild response to bronchodilator therapy in FVC and [id number]. This may indicate a presence of a bronchospastic component. 3. Clinical correlation is recommended. Alfred Mccall MD MSBraxton/MODL / [id number]
== END 2021-05-17 09:44 | disposition home or self-care (01) ==
LOC: HO.RESP 09:43
PROVIDERS: PCP Internal Medicine; Visit Provider Internal Medicine
DX: R06.00 Dyspnea, unspecified (principal); J45.50 Severe persistent asthma, uncomplicated
CPT/HCPCS: 94060; 94727; 94729

== ENCOUNTER 2021-06-05 09:43 | Outpatient (REF) | payer MEDICARE, SELFPAY ==
--- NOTE | ~2021-06-05 | US_ITS ---
EXAMINATION: US THYROID CLINICAL INFORMATION: Nontoxic multinodular goiter. COMPARISON: Thyroid ultrasound 02/29/2020 and 07/16/2019. Ultrasound-guided thyroid biopsy 05/11/2020. TECHNIQUE: Linear transducer grayscale and color Doppler examination with attention to the region of the thyroid. FINDINGS: SIZE: Measurements of the thyroid lobes and nodules are given in sagittal, anteroposterior and transverse dimensions respectively. Right Thyroid Lobe: 5.0 x 1.4 x 2.9 cm, volume 11.1 mL. Previously 5.2 x 1.8 x 2.0 cm, volume 10.0 mL. Parenchyma: The gland echotexture is heterogeneous. Thyroid vascularity is normal. Left Thyroid Lobe: 4.6 x 1.9 x 2.7 cm, volume 12.2 mL. Previously 4.7 x 1.8 x 2.5 cm, volume 11.1 mL. Parenchyma: The gland echotexture is heterogeneous. Thyroid vascularity is normal. Isthmus: 0.7 cm in maximum AP dimension. Previously 0.7 cm. There are multiple bilateral solid and cystic nodules. Estimated total number of nodules greater than or equal to 1 cm: 3. Risk Tech nodules are described as follows: 1. Location: Right mid pole. Size: 0.5 x 0.2 x 0.5 cm, volume 0.02 mL. Previously: 0.5 x 0.4 x 0.5 cm, volume 0.05 mL. Nodule characteristics: Composition: Cannot be determined (2). Echogenicity: Hyperechoic (1). Shape: Not taller than wide (0). Margins: Smooth (0). Echogenic Foci: Macrocalcifications (1). ACR TI-RADS total points: 4 Previous: Not applicable ACR TI-RADS category: 4 Previous: Not applicable Significant change in size (>/= 20% in 2 dimensions and minimal increase of 2 mm or 50% or greater increase in volume): Change in features: Change in ACR TI-RADS risk category: Not applicable 2. Location: Right lower pole. Size: 1.2 x 0.7 x 1.5 cm, volume 0.57 mL. Previously: 1.2 x 0.7 x 1.5 cm, volume 0.6 mL. Nodule characteristics: Composition: Solid/almost completely solid (2). Echogenicity: Hypoechoic (2). Shape: Not taller than wide (0). Margins: Smooth (0). Echogenic Foci: None (0). ACR TI-RADS total points: 4 Previous: Not applicable ACR TI-RADS category: 4 Previous: Not applicable Significant change in size (>/= 20% in 2 dimensions and minimal increase of 2 mm or 50% or greater increase in volume): Change in features: Change in ACR TI-RADS risk category: Not applicable 3. Location: Left mid pole. Size: 2.5 x 1.3 x 2.7 cm, volume 4.6 mL. Previously: 2.3 x 1.3 x 1.9 cm, volume 3.0 mL. Nodule characteristics: Composition: Solid (2). Echogenicity: Hypoechoic (2). Shape: Not taller than wide (0). Margins: Smooth (0). Echogenic Foci: None (0). ACR TI-RADS total points: 4 Previous: Not applicable ACR TI-RADS category: 4 Previous: Not applicable Significant change in size (>/= 20% in 2 dimensions and minimal increase of 2 mm or 50% or greater increase in volume): Change in features: Change in ACR TI-RADS risk category: Not applicable 4. Location: Left mid pole. Size: 1.2 x 0.6 x 1.2 cm, volume 0.47 mL. Previously: 0.8 x 0.6 x 0.9 cm, volume 0.25 mL. Nodule characteristics: Composition: Solid (2). Echogenicity: Hypoechoic (2). Shape: Not taller than wide (0). Margins: Smooth (0). Echogenic Foci: None (0). ACR TI-RADS total points: 4 Previous: Not applicable ACR TI-RADS category: 4 Previous: Not applicable Significant change in size (>/= 20% in 2 dimensions and minimal increase of 2 mm or 50% or greater increase in volume): Change in features: Change in ACR TI-RADS risk category: Not applicable NODES: No lymphadenopathy is seen in the tissue surrounding the thyroid gland. US/US thyroid IMPRESSION: Enlarged thyroid gland with numerous bilateral thyroid nodules. The 4 largest nodules are measured. There is interval increase in size second largest nodule in the left lobe in the mid pole. Otherwise nodules do not appear appreciably changed. ACR TI-RADS RECOMMENDATION REFERENCE: Ultrasound-guided fine-needle aspiration, followup ultrasound, no further follow up. * TR1 (0 point) and TR 2 (2 points): No FNA or follow up * TR3 (3 points): FNA if more than or equal to 2.5 cm in maximum dimension, followup ultrasound in 1, 3 and 5 years if 1.5 to 2.4 cm in maximum dimension. * TR4 (4-6 points): FNA if more than or equal to 1.5 cm in maximum dimension, followup ultrasound in 1, 2, 3 and 5 years if 1 to 1.4 cm in maximum dimension. * TR5 (more than or equal to 7 points): FNA if more than or equal to 1 cm in maximum dimension, followup ultrasound every year for 5 years if 0.5 to 0.9 cm in maximum dimension. * TR3, TR4 or TR5 nodules that are below the size threshold for follow up receive no follow up.
== END 2021-06-05 09:44 | disposition home or self-care (01) ==
LOC: HO.US 09:43
PROVIDERS: PCP Internal Medicine; Visit Provider Internal Medicine
DX: R06.00 Dyspnea, unspecified (principal); E04.2 Nontoxic multinodular goiter
CPT/HCPCS: 76536

== ENCOUNTER → 2021-06-11 10:06 | Outpatient (BNVA) | payer MEDICARE, SELFPAY | PROVIDERS: PCP Internal Medicine; Visit Provider Internal Medicine | DX: E04.2 Nontoxic multinodular goiter (principal); Z79.899 Other long term (current) drug therapy | CPT/HCPCS: Q3014 ==

== ENCOUNTER 2021-07-04 11:04 | Outpatient (REF) | payer MEDICARE, SELFPAY ==
--- NOTE | ~2021-07-04 | US_ITS ---
EXAMINATION: US RETROPERITONEAL LIMITED (RENAL ONLY) CLINICAL INFORMATION: Calculus of kidney. COMPARISON: Renal ultrasound 01/04/2021 and 08/19/2019. KUB 12/20/2020. CT abdomen and pelvis 10/17/2018. TECHNIQUE: Real-time imaging of the kidneys. FINDINGS: RIGHT KIDNEY: 10.8 x 5.4 x 6.7 cm (SAG x AP x TRV). The kidney is normal in size, contour, and echogenicity. Renal cortical thickness is normal. No renal calculi or hydronephrosis. There is an anechoic cyst in the lower pole measuring 2.2 x 2.6 x 2.5 cm with septation. There is an anechoic cyst in the upper mid pole measuring 3.0 x 3.4 x 3.0 cm and a mid pole cyst measuring 1.0 x 0.8 x 1.1 cm. There is an anechoic cyst in the lower pole measuring 0.52 x 0.5 x 0.52 cm. LEFT KIDNEY: 11.1 x 5.0 x 5.1 cm (SAG x AP x TRV). The kidney is normal in size, contour, and echogenicity. Renal cortical thickness is normal. No renal calculi or hydronephrosis. There is an anechoic cyst in the mid pole measuring 2.4 x 2.1 x 2.6 cm and mid pole measuring 0.52 x 0.54 x 0.4 cm. US/US renal BI IMPRESSION: There are bilateral renal cysts. There is a complex cyst right kidney lower pole measuring 2.6 cm. There are no echogenic stones or hydronephrosis.
== END 2021-07-04 11:05 | disposition home or self-care (01) ==
LOC: HO.HMGCX 11:04
PROVIDERS: PCP Internal Medicine; Visit Provider Urology
DX: N20.0 Calculus of kidney (principal)
CPT/HCPCS: 76775

== ENCOUNTER 2021-07-10 06:19 | Day surgery (SDC) | payer MEDICARE, SELFPAY ==
[2021-07-05 12:10] VITALS: BMI 42.7
[2021-07-06 16:11] VITALS: BMI 43.7
--- NOTE | 2021-07-09 09:30 | P.CONAN_ITS ---
Documented by User: Chloe Young NP 07/09/21 09:32 HPI - Anesthesia Eval Consult details Narrative: 75yo F for Colonoscopy hx notes xarelto discontinued, ? 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) Osteoarthritis of right knee (Acute) Weight loss (Acute) Mild major depression (Acute) Obese (Acute) Neck pain (Acute) Renal calculi (Acute) Dyslipidemia (Acute) Right knee pain (Acute) Tremor of left hand (Acute) Non-toxic multinodular goiter (Acute) UTI (urinary tract infection) (Acute) Lumbar degenerative disc disease (Acute) Hypovitaminosis D (Acute) Insomnia (Acute) Constipation due to opioid therapy (Acute) Essential hypertension (Acute) Past Medical History Medical History Constipation due to opioid therapy Dyslipidemia Essential hypertension Gall stones Hypovitaminosis D Insomnia Lumbar degenerative disc disease Mild major depression Neck pain Non-toxic multinodular goiter Obese Renal calculi Right knee pain Tremor of left hand UTI (urinary tract infection) Family History Family History Father Medical history unknown Mother Lung cancer Colon cancer Surgical History Surgical History H/O colonoscopy History of section History of esophagogastroduodenoscopy (EGD) History of left knee replacement History of lithotripsy History of lumpectomy of left breast Hx of dilation and curettage Hx of hand surgery Social History Social History Household Members Other:: daughter Alcohol intake: never Patient Tobacco Use Status: Never used Tobacco e-Cigarette/Vaping Use: Never Used Second Hand Smoke Exposure: No Are you DNR?: No Advance Directives: No Advance Directives Information Provided: Yes Advance Directives on File: No 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al status: unemployed Meds Allergies Allergy/AdvReac Type Severity Reaction Status Date / Time cat dander [CAT DANDER] Allergy Mild skinrash Verified 03/15/21 10:07 mite-Dermatophagoides Allergy Mild watery Verified 03/15/21 10:07 farinae, skyla itchy [DUST MITES] eyes, sneezing Home Medications Medication Instructions Recorded Confirmed Last Taken Type acetaminophen 325 mg tablet 325 mg PO BID PRN tab 05/22/20 07/06/21 Unknown History (Tylenol) cetirizine 10 mg tablet 10 mg PO DAILY 05/22/20 07/06/21 Unknown History fluticasone propionate 50 1 spray INTRANASAL DAILY 05/22/20 07/06/21 Unknown History mcg/actuation nasal spray,suspension montelukast 10 mg tablet 10 mg PO DAILY 05/22/20 07/06/21 Unknown History fbqcbxzwezea-zevulcrb-pckuqq tablet 1 tab PO DAILY 05/22/20 07/06/21 Unknown History olopatadine 0.1 % eye drops 1 - 2 drp OPHTHALMIC (EYE) BID 05/22/20 07/06/21 Unknown History omega-3 fatty acids 1,000 mg 1,000 mg PO DAILY 05/22/20 07/06/21 Unknown History capsule sertraline 100 mg tablet 150 mg PO DAILY 05/22/20 07/06/21 Unknown History tizanidine 4 mg tablet 4 mg PO TID 05/22/20 07/06/21 Unknown History trazodone 150 mg tablet 150 mg PO BEDTIME 05/22/20 07/06/21 Unknown History Exam Exam Date and Time: July 09, 2021 0930 Height,Weight and Vital Signs: Height 5 ft 3 in Weight 112.037 kg Pertinent Lab Results Pertinent Lab Results: Laboratory Tests 06/26/21 06/26/21 12:20 12:20 WBC 6.0 Hgb 10.9 L Hct 34.7 L Plt Count 174 Sodium 143 Potassium 4.3 Chloride 105 Carbon Dioxide 29 BUN 18 H Creatinine 0.96 Assessment and Plan Assessment Anesthesia Assessment: Chart Reviewed Documented by User: Patricia Ellis MD 07/10/21 07:31 [facility] Past Medical History Medical History Constipation due to opioid therapy Dyslipidemia Essential hypertension Gall stones Hypovitaminosis D Insomnia Lumbar degenerative disc disease Mild major depression Neck pain Non-toxic multinodular goiter Obese Renal calculi Right knee pain Tremor of left hand UTI (urinary tract infection) Functional capacity: independent ambulation Patient : No Family History Family History Father Medical history unknown Mother Lung cancer Colon cancer Family history of problems with anesthesia: No Surgical History Surgical History H/O colonoscopy History of section History of esophagogastroduodenoscopy (EGD) History of left knee replacement History of lithotripsy History of lumpectomy of left breast Hx of dilation and curettage Hx of hand surgery History of Problems with Anesthesia: No Social History Social History Household Members Other:: daughter Alcohol intake: never Patient Tobacco Use Status: Never used Tobacco e-Cigarette/Vaping Use: Never Used Second Hand Smoke Exposure: No Are you DNR?: No Advance Directives: No Advance Directives Information Provided: Yes Advance Directives on File: No 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al status: unemployed Meds Allergies Allergy/AdvReac Type Severity Reaction Status Date / Time cat dander [CAT DANDER] Allergy Mild skinrash Verified 03/15/21 10:07 mite-Dermatophagoides Allergy Mild watery Verified 03/15/21 10:07 farinae, skyla itchy [DUST MITES] eyes, sneezing Home Medications Medication Instructions Recorded Confirmed Last Taken Type acetaminophen 325 mg tablet 325 mg PO BID PRN tab 05/22/20 07/06/21 Unknown History (Tylenol) cetirizine 10 mg tablet 10 mg PO DAILY 05/22/20 07/06/21 Unknown History fluticasone propionate 50 1 spray INTRANASAL DAILY 05/22/20 07/06/21 Unknown History mcg/actuation nasal spray,suspension montelukast 10 mg tablet 10 mg PO DAILY 05/22/20 07/06/21 Unknown History inpphtrpvvvi-ckhngjgs-yxxeth tablet 1 tab PO DAILY 05/22/20 07/06/21 Unknown History olopatadine 0.1 % eye drops 1 - 2 drp OPHTHALMIC (EYE) BID 05/22/20 07/06/21 Unknown History omega-3 fatty acids 1,000 mg 1,000 mg PO DAILY 05/22/20 07/06/21 Unknown History capsule sertraline 100 mg tablet 150 mg PO DAILY 05/22/20 07/06/21 Unknown History tizanidine 4 mg tablet 4 mg PO TID 05/22/20 07/06/21 Unknown History trazodone 150 mg tablet 150 mg PO BEDTIME 05/22/20 07/06/21 Unknown History Exam Airway Mallampati Class: IV TM Dist: >3cm Neck ROM: Full Heart: RRR Lungs: CTA Assessment and Plan Final Anesthetic Review Family History of Problems with Anesthesia: No History of Problems with Anesthesia: No ASA Class: III Patient Risk: Intermediate Procedure Risk: Low Anesthetic Plan Anesthetic Plan: MAC: Disposition: Standard PACU
[2021-07-10 06:43] VITALS: BP 141/81; PULSE 68; RESP 17; TEMP 36.9; O2SAT 96
--- NOTE | 2021-07-10 07:12 | P.HPSUR_ITS ---
Pre-Procedural Eval Section A Date of Service: 07/10/21 The patient is an INPATIENT: No The History & Physical has been completed within 30 days and I have reviewed it.: No Section B Chief Complaint: Hx of colon polyps Details of Present Illness: Colon screening, history of colon polyps, constipation, rectal bleed Relevant Family History (Specify if Yes): Yes Relevant Social History: None Present Medications: see Short Stay Collaborative assessment Medical History: Significant History (Constipation due to opioid therapy Dyslipi demia Essential hypertension Gall stones Hypovitaminosis D Insomnia Lumbar degenerative disc disease Mild major depression Neck pain Non-toxic multinodular goiter Obese Renal calculi Right knee pain Tremor of left hand UTI (urinary tract infection)) History of Previous Operations: Relevant previous surgery/procedure and date(s) (H/O colonoscopy History of section History of esophagogastroduodenoscopy (EGD) History of left knee replacement History of lithotripsy History of lumpectomy of left breast Hx of dilation and curettage Hx of hand surgery) Allergies: Allergies Allergy/AdvReac Type Severity Reaction Status Date / Time cat dander [CAT DANDER] Allergy Mild skinrash Verified 03/15/21 10:07 mite-Dermatophagoides Allergy Mild watery Verified 03/15/21 10:07 farinae, skyla itchy [DUST MITES] eyes, sneezing Review of Systems Sugical H&P ROS: Negative: Constitution and Cardiovascular and Yes, Specify: Respiratory (asthma) and Gastrointestinal (constipation) Exam Surgical H&P Exam: Normal: Heart, Normal: Lungs, Normal: Extremities and Normal: Abdomen Plan Diagnosis/Plan: Unchanged I have reviewed the history and physical and performed a pertinent physical examination on my patient. No changes have occurred unless specified.
--- NOTE | 2021-07-10 07:32 | P.OP_ITS ---
Operative Note Operative Note Date of Service: 07/10/21 Narrative: Pre-op diagnosis:?Colon cancer screening, history of colon polyps Post-op diagnosis:?other (Colon polyp, diverticulosis, hemorrhoids) Procedure:? COLONOSCOPY TILL CECUM WITH SNARE POLYPECTOMY Consent: Indications for the procedure and potential complications of bleeding, perforation, reaction to medications and missed diagnosis were discussed with the patient and informed consent was obtained. Instrument: Olympus CF H 190 L variable stiffness adult colonoscope Monitoring: Vital signs and clinical assessment, intermittent blood pressure monitoring, continuous EKG monitoring, Pulse oximetry and Carbon Dioxide monitoring were done throughout the procedure. Colon withdrawl time was 25 minutes. Procedure: The patient was placed in the left lateral decubitis position and pre-procedure medications were administered. After a digital rectal examination of the ano-rectum, the video colonoscope was inserted into the rectum and advanced through the colon to the cecum. The colonoscope was slowly withdrawn in a retrograde panoramic fashion and the colon mucosa was carefully examined including a retroflexed view of the rectum. Findings and interventions are described below. Procedure Difficulty: Without difficulty Findings: Terminal Ileum: Not evaluated Cecum:? A 10 mm sessile polyp overlying a fold removed with a hot snare. Ascending Colon:? Scattered diverticulosis Transverse Colon:? Scattered diverticulosis Descending Colon:? Scattered diverticulosis Sigmoid Colon:? Severe diverticulosis with luminal narrowing Rectum:? Normal Ano-rectum:? Moderate internal hemorrhoids and fernando-anal skin tags Colon preparation:? Good? Impression and Post Procedure Diagnosis: Colonoscopy Findings: One medium sized polyp removed Moderate diverticulosis seen in the entire colon Moderate hemorrhoids on retroflexed exam. Plan: Await pathology results Patient has an appointment on 07/25/21 in the GI Clinic with [facility] Tilley? . Repeat Colonoscopy interval based on path results - in 3 years if polyps are adenomatous and due to a hx of multiple colon polyps. Colon polyps and diverticulosis handouts were given in the discharge area Surgeon:?Faizan Avila MD Anesthesia:?MAC (Dr Newton) Was an Properties Supervisor used for this Procedure?:?Yes Properties Supervisor:?Jayla Loyola Estimated blood loss (mL):?0 Pathology:?other (A. cecal polyp) Condition:?stable Disposition:?PACU
[2021-07-10] MEDS: Lactated Ringers 1,000 ML 100 ML IVCONT (07:43)
[2021-07-10] MEDS: Sodium Phosphate,Mono-Dibasic 133 ML ENEMA PR (07:47)
[2021-07-10 08:46] VITALS: BP 137/65; PULSE 62; RESP 16; TEMP 36.3; O2SAT 95
[2021-07-10 09:01] VITALS: BP 152/76; PULSE 61; RESP 16; TEMP 36.3; O2SAT 96
--- NOTE | 2021-07-10 11:56 | HO.POSTANES ---
Post Anesthesia Evaluation Post Anesthesia Evaluation Vital Signs: Vital Signs Temp Pulse Resp BP Pulse Ox 07/10/21 09:01 97.4 F 61 16 152/76 H 96 07/10/21 08:46 97.4 F 62 16 137/65 95 07/10/21 06:43 98.5 F 68 17 141/81 H 96 Anesthesia: Monitored Mental Status: Awake Pain Control: Satisfactory Nausea/Vomiting: None Hydration: Adequate Anesthesia-Related Issues: No Anes. Related Issues
== END 2021-07-10 09:46 | disposition home or self-care (01) ==
PROVIDERS: PCP Internal Medicine; Visit Provider Internal Medicine Gastroenterology
PROC: 0DJD8ZZ Inspection of Lower Intestinal Tract, Via Natural or Artificial Opening Endoscopic (ICD-10-PCS; CPT 45378; principal; 2021-07-10 07:30)
DX: Z12.11 Encounter for screening for malignant neoplasm of colon (principal); Z86.010 Personal history of colon polyps; D12.0 Benign neoplasm of cecum; K57.30 Diverticulosis of large intestine without perforation or abscess without bleeding; K64.8 Other hemorrhoids; K64.4 Residual hemorrhoidal skin tags; K31.9 Disease of stomach and duodenum, unspecified; E78.5 Hyperlipidemia, unspecified; I10 Essential (primary) hypertension; R25.1 Tremor, unspecified; K59.03 Drug induced constipation; E66.01 Morbid (severe) obesity due to excess calories; Z68.41 Body mass index [BMI] 40.0-44.9, adult; Z79.82 Long term (current) use of aspirin; Z79.899 Other long term (current) drug therapy
CPT/HCPCS: 45385; 88305

== ENCOUNTER 2021-07-11 18:31 | Outpatient (REF) | payer MEDICARE, SELFPAY | END 2021-07-11 18:32 | disposition home or self-care (01) | LOC: HO.LNP 18:31 | PROVIDERS: Visit Provider Internal Medicine | DX: N39.0 Urinary tract infection, site not specified (principal) | CPT/HCPCS: 87086; 87088; 87186 ==

== ENCOUNTER → 2021-07-17 09:23 | Outpatient (BNVA) | payer MEDICARE, SELFPAY | PROVIDERS: PCP Internal Medicine | DX: Z13.89 Encounter for screening for other disorder (principal) | CPT/HCPCS: Q3014 ==

== ENCOUNTER 2021-09-05 09:01 | Outpatient (REF) | payer MEDICARE, SELFPAY ==
[2021-09-05 10:04] LABS: Alanine Aminotransferase 10 U/L (0-31); Albumin Level 4.3 g/dL (3.5-5.0); Alkaline Phosphatase 61 U/L (39-117); Anion Gap 10 (12-20); Aspartate Amino Transferase 15 U/L (5-31); Bilirubin Total 0.5 mg/dL (0.0-1.0); Blood Urea Nitrogen 19 mg/dL (9-16); Calcium 9.5 mg/dL (8.4-10.2); Carbon Dioxide 33 mmol/L (22-29); Chloride 104 mmol/L (96-108); Cholesterol 211 mg/dL; Estimated Glomerular Filt Rate 58; Glucose Fasting 89 mg/dL (60-99); HDL Cholesterol 52 mg/dL; LDL Cholesterol Calculated 144 mg/dl; Potassium 4.4 mmol/L (3.3-5.1); Sodium 143 mmol/L (135-145); Total Protein 7.2 g/dL (6.5-8.0); Triglycerides 75 mg/dL
== END 2021-09-05 09:02 | disposition home or self-care (01) ==
LOC: HO.LAB 09:01
PROVIDERS: PCP Internal Medicine; Visit Provider Internal Medicine
DX: M17.11 Unilateral primary osteoarthritis, right knee (principal); E78.00 Pure hypercholesterolemia, unspecified
CPT/HCPCS: 20610; 36415; 80053; 80061; 99212; J1040

== ENCOUNTER → 2021-09-12 10:25 | Outpatient (BNVA) | payer MEDICARE, SELFPAY | PROVIDERS: PCP Internal Medicine; Referring Provider Internal Medicine; Visit Provider Physician Assistant | DX: K57.90 Diverticulosis of intestine, part unspecified, without perforation or abscess without bleeding (principal); K59.03 Drug induced constipation; T40.2X5D Adverse effect of other opioids, subsequent encounter; Z86.010 Personal history of colon polyps | CPT/HCPCS: 99212 ==

== ENCOUNTER 2021-10-12 10:38 | Outpatient (REF) | payer MEDICARE, SELFPAY ==
--- NOTE | ~2021-10-12 | MM_ITS ---
EXAMINATION: MM DIAGNOSTIC DIGITAL BREAST TOMOSYNTHESIS, BILATERAL CLINICAL INFORMATION: Left invasive ductal cancer, 2017. Probable benign dystrophic calcifications in scar. Primary lesion was spiculated mass without calcification. Due for yearly. COMPARISON: Mammography: 10/10/2020, 01/13/2020, 10/11/2019, 04/07/2019, 10/06/2018 TECHNIQUE: Digital breast tomosynthesis is performed in both the craniocaudal and mediolateral oblique views along with computer-aided detection (CAD). Synthesized 2D images are generated from the tomosynthesis. Additional views are obtained: Exaggerated left CC, right MLO, magnification left CC, magnification left ML x2. FINDINGS: There are scattered areas of fibroglandular density (ACR BI-RADS breast composition Category b). Left breast post therapy changes are again seen with mild reduced breast size and stable scarring. There are dystrophic benign calcifications in the scar, round and rim forms. There are some vascular calcifications seen in both breasts. Neither breast shows interval mass or architectural abnormality or abnormal calcifications. The axilla are unremarkable. Results are provided to the patient at time of visit by the technologist. MM/MM tomosynthesis diagnostic BI IMPRESSION: 1. Left: Post therapy changes left breast. Benign calcifications in the lumpectomy scar. 2. Right: No mammographic evidence of malignancy. ASSESSMENT: BI-RADS 2: Benign RECOMMENDATION: Routine annual mammography screening. This patient's information was entered into a reminder system with a target due date for their next mammogram.
== END 2021-10-12 10:39 | disposition home or self-care (01) ==
LOC: HO.MAMMO 10:38
PROVIDERS: Visit Provider Internal Medicine Medical Oncology
DX: R92.1 Mammographic calcification found on diagnostic imaging of breast (principal)
CPT/HCPCS: 77062; 77066

== ENCOUNTER 2021-10-25 10:35 | Outpatient (REF) | payer MEDICARE, SELFPAY ==
--- NOTE | 2021-10-25 11:11 | P.BOP_ITS ---
Brief Operative Note Date of Service: 10/25/21 Pre-op diagnosis: Multinodular Thyroid Procedure: This is doctor Zeny Mcdaniels. This is an ultrasound-guided fine-needle aspiration report. Date of Examination: 10/25/2021 Indication: Multinodular Thyroid Porcedure: Procedure was explained to the patient. Alternatives, the risk and benefits were discussed. Written consent was obtained. A time-out was also obtained. After sterile preparation, fine-needle aspiration of a left mid pole 2.7 cm thyroid nodule was performed using direct ultrasound guidance to confirm accurate needle placement. Four aspirations were made using 27 gauge needles. An additional aspiration was made using a 25 guage needle. Samples were submitted for cytology. One pass was dedicated for [employer] sequencing librarian helper testing. The patient tolerated the procedure well. Aftercare instructions were provided. She was unable to tolerate additional passes so the biopsy was aborted. She has an additional LMP 1.2 cm thyroid nodule meeting indication for FNA biopsy but she was unable to tolerate attempt of biopsy of this nodule today. One pass was dedicated for [employer] sequencing librarian helper testing. The patient tolerated the procedure well. Aftercare instructions were provided. Impression: Uncomplicated fine needle aspiration biopsy of a left mid pole 2.7 cm thyroid nodule under ultrasound guidance. Surgeon: Zeny Mcdaniels, DO Was an Corporate Human Resources Manager used for this Procedure?: No Estimated blood loss (mL): 0
[2021-10-25] MEDS: Lidocaine HCl 1 % MPF 5 ML VIAL SUBCUT (11:44)
== END 2021-10-25 10:36 | disposition home or self-care (01) ==
LOC: HO.US 10:35
PROVIDERS: Visit Provider Internal Medicine
DX: E04.1 Nontoxic single thyroid nodule (principal)
CPT/HCPCS: 10005; 88172; 88173; 88177

== ENCOUNTER → 2021-12-07 10:15 | Outpatient (BNVA) | payer MEDICARE, SELFPAY | PROVIDERS: PCP Internal Medicine; Referring Provider Internal Medicine; Visit Provider Surgery | DX: N64.4 Mastodynia (principal); C50.912 Malignant neoplasm of unspecified site of left female breast | CPT/HCPCS: 99212 ==

== ENCOUNTER → 2021-12-13 09:01 | Outpatient (BNVA) | payer MEDICARE, SELFPAY | PROVIDERS: PCP Internal Medicine; Visit Provider Internal Medicine | DX: E04.2 Nontoxic multinodular goiter (principal) | CPT/HCPCS: Q3014 ==

== ENCOUNTER 2021-12-27 09:30 | Outpatient (REF) | payer MEDICARE, SELFPAY ==
[2021-12-27 09:53] LABS: MANUAL DIFF FLAG NO
[2021-12-27 10:19] LABS: Basophils Percent Auto 0.4 % (0-2); Eosinophils Absolute Auto 0.1 X10*3/uL (0.0-0.4); Eosinophils Percent Auto 2.3 % (0-4); Hematocrit 35.4 % (37.0-47.0); Hemoglobin 10.8 g/dl (12.0-16.0); Imm Gran Abs Auto 0.01 X10*3/uL (0.00-0.03); Imm Gran Pct Auto 0.2 % (0.0-0.4); Lymphocytes Absolute Auto 1.3 X10*3/uL (1.2-4.9); Lymphocytes Percent Auto 26.3 % (20-40); Mean Corpuscular HGB Conc 30.5 g/dl (31.0-35.0); Mean Corpuscular Hemoglobin 29.8 pg (27.0-33.0); Mean Corpuscular Volume 97.5 fL (80.0-98.0); Mean Platelet Volume 11.2 fL (9.4-12.3); Monocytes Absolute Auto 0.4 X10*3/uL (0.1-1.2); Monocytes Percent Auto 8.6 % (2-11); Neutrophils Percent Auto 62.2 % (45-73); Platelet Count 183 X10*3/uL (160-400); Red Blood Count 3.63 X10*6/uL (4.20-5.50); Red Cell Distribution Width 13.6 % (11.0-16.0); White Blood Count 4.8 X10*3/uL (4.8-10.8)
[2021-12-27 10:48] LABS: Alanine Aminotransferase 12 U/L (0-31); Albumin Level 4.1 g/dL (3.5-5.0); Alkaline Phosphatase 61 U/L (39-117); Anion Gap 13 (12-20); Aspartate Amino Transferase 14 U/L (5-31); Bilirubin Total 0.3 mg/dL (0.0-1.0); Blood Urea Nitrogen 17 mg/dL (9-16); Calcium 9.9 mg/dL (8.4-10.2); Carbon Dioxide 31 mmol/L (22-29); Chloride 106 mmol/L (96-108); Cholesterol 208 mg/dL; Estimated Glomerular Filt Rate 54; Glucose Fasting 108 mg/dL (60-99); HDL Cholesterol 54 mg/dL; Iron 31 mcg/dL (30-160); LDL Cholesterol Calculated 138 mg/dl; Percent Iron Saturation 10 % (15-50); Potassium 4.1 mmol/L (3.3-5.1); Sodium 146 mmol/L (135-145); Total Iron Binding Capacity 301 mcg/dL (228-428); Total Protein 6.9 g/dL (6.5-8.0); Triglycerides 81 mg/dL; Unsaturated Iron Binding 270 ug/dL
[2021-12-27 11:00] LABS: Vitamin D 25-OH Total 49.2 ng/mL (>30)
[2021-12-27 11:56] LABS: Creatinine Urine 75.95 mg/dL; Microalbum/Creatinine Ratio Ur 36.8 ug/mg cr
== END 2021-12-27 09:31 | disposition home or self-care (01) ==
LOC: HO.LAB 09:30
PROVIDERS: Absent Provider Internal Medicine; PCP Internal Medicine
DX: E78.5 Hyperlipidemia, unspecified (principal); D64.9 Anemia, unspecified; E55.9 Vitamin D deficiency, unspecified; E66.01 Morbid (severe) obesity due to excess calories; Z68.41 Body mass index [BMI] 40.0-44.9, adult; E11.9 Type 2 diabetes mellitus without complications
CPT/HCPCS: 36415; 80053; 80061; 82043; 82306; 83540; 85025

== ENCOUNTER 2022-01-03 09:43 | Outpatient (REF) | payer MEDICARE, SELFPAY ==
--- NOTE | ~2022-01-03 | CT_ITS ---
EXAMINATION: CT ABDOMEN WITHOUT AND WITH CONTRAST CLINICAL INFORMATION: Cyst of kidney . COMPARISON: Renal ultrasound 07/04/2021. TECHNIQUE: Contiguous axial thin section helical images of the abdomen were performed before and after the administration of oral contrast and 85 mL of Omnipaque 350 intravenous contrast. The data set was reformatted in the coronal and sagittal planes and reviewed on an independent workstation. This CT examination was performed using dose optimization techniques as appropriate, variously including the following: *Automated exposure control *Adjustment of mA and/or kV according to patient size (this includes techniques or standardized protocols for targeted exams where dose is matched to indication/reason for exam; i.e. extremities or head) *Use of iterative reconstruction technique DLP: 763 mGy-cm FINDINGS: LUNG BASES: The heart size is normal. The lung bases are clear. LIVER, GALLBLADDER, AND BILIARY TREE: The liver is normal in size, contour and density. No focal lesion or intrahepatic ductal dilatation is seen. The gallbladder has been surgically removed. PANCREAS: The pancreas is homogeneous in echotexture and normal size. SPLEEN: The spleen is normal size. ADRENAL GLANDS AND KIDNEYS: Both kidneys are normal size, shape and position. There are multiple hypodense lesions seen in both kidneys measuring cyst density. The largest lesion in the lower pole of the right kidney measures 2.66 cm and in the mid to lower pole of the left kidney measures 2.2 cm. Post contrast there are no enhancing lesions. No enhancement is seen in any of the cysts. The right kidney measures approximately 9.6 cm in length and the left kidney measures 10.8 cm in length. There is an 8 mm nonobstructive radiopaque calculus in a lower pole calyx of the right kidney. BOWEL LOOPS: There is scattered stool, diverticula and gas seen throughout the colon without any significant distention. The small bowel loops are normal caliber. The appendix is not in the [id number]. LYMPH NODES: No abnormal retroperitoneal lymph nodes are seen. VASCULAR: Unremarkable. BONES: There is grade 1 anterolisthesis of L4 over L5 with vacuum disc phenomenon. Mild degenerative disc changes are seen at the T12-L1 disc level with vacuum disc phenomenon and moderate endplate spondylosis. CT/CT abdomen wo/w con IMPRESSION: Bilateral renal cysts. There is a nonobstructive 8 mm radiopaque calculus in a lower pole calyx of the right kidney. There is no hydronephrosis. Previous cholecystectomy changes. Fleischner guidelines were followed.
[2022-01-03] MEDS: iohexoL 350 MG/ML 100 ML INFUS..BTL IV (10:39)
== END 2022-01-03 09:44 | disposition home or self-care (01) ==
LOC: HO.CT 09:43
DX: N28.1 Cyst of kidney, acquired (principal)
CPT/HCPCS: 74170; Q9967

== ENCOUNTER 2022-01-07 09:53 | Outpatient (REF) | payer MEDICARE, SELFPAY ==
--- NOTE | ~2022-01-07 | US_ITS ---
EXAMINATION: US RETROPERITONEAL LIMITED (RENAL ONLY) CLINICAL INFORMATION: Calculus of kidney. COMPARISON: CT abdomen 01/03/2022. Renal ultrasound 07/04/2021 and 01/04/2021. X-ray abdomen KUB 12/20/2020. TECHNIQUE: Real-time imaging of the kidneys. FINDINGS: RIGHT KIDNEY: 10.5 x 5.9 x 6.5 cm (SAG x AP x TRV). The kidney is normal in size, contour, and echogenicity. Renal cortical thickness is normal. No hydronephrosis. There are multiple cysts. 1. A lower pole cyst with septation measures 2.2 x 2.6 x 2.9 cm. 2. The upper/midpole cyst measures 3.2 x 3.5 x 4.1 cm. 3. In midpole anechoic cyst measures 1.3 x 0.8 x 1.2 cm. 4. An upper pole cyst measures 1.0 x 0.8 x 1.3 cm. There is a nonobstructive echogenic stone in lower pole measuring 0.8 x 0.7 x 1.3 cm. LEFT KIDNEY: 9.8 x 4.6 x 5.0 cm (SAG x AP x TRV). The kidney is normal in size, contour, and echogenicity. Renal cortical thickness is normal. No renal calculi or hydronephrosis. There are anechoic cysts. 1. Lower pole cyst measures 2.6 x 2.2 x 2.1 cm. 2. Lower pole cyst measures 0.9 x 0.8 x 0.8 cm. 3. Upper pole cyst measures 0.90 0.8 x 1.0 cm. US/US renal BI IMPRESSION: Bilateral renal cysts. Nonobstructive echogenic stone lower pole right kidney.
== END 2022-01-07 09:54 | disposition home or self-care (01) ==
LOC: HO.US 09:53
DX: N20.0 Calculus of kidney (principal)
CPT/HCPCS: 76775

== ENCOUNTER → 2022-01-10 10:25 | Outpatient (BNVA) | payer MEDICARE, SELFPAY | PROVIDERS: PCP Internal Medicine; Visit Provider Surgery Vascular Surgery | DX: I83.11 Varicose veins of right lower extremity with inflammation (principal) | CPT/HCPCS: 99202 ==

== ENCOUNTER → 2022-01-15 08:39 | Outpatient (BNVA) | payer MEDICARE, SELFPAY | PROVIDERS: PCP Internal Medicine | DX: Z48.816 Encounter for surgical aftercare following surgery on the genitourinary system (principal); N20.0 Calculus of kidney | CPT/HCPCS: Q3014 ==

== ENCOUNTER 2022-03-11 09:33 | Outpatient (REF) | payer MEDICARE, SELFPAY ==
--- NOTE | ~2022-03-11 | US_ITS ---
EXAMINATION: US RETROPERITONEAL LIMITED (RENAL ONLY) CLINICAL INFORMATION: Calculus of kidney. COMPARISON: US retroperitoneal limited (renal only) 01/07/2022 and 07/04/2021. CT abdomen without and with contrast 01/03/2022. XR abdomen KUB 12/20/2020. TECHNIQUE: Real-time imaging of the kidneys. FINDINGS: RIGHT KIDNEY: 9.2 x 5.1 x 5.8 cm (SAG x AP x TRV). The kidney is normal in size, contour, and echogenicity. Renal cortical thickness is normal. No hydronephrosis. There are multiple anechoic cysts. An upper pole cyst measures 1.4 x 1.0 x 1.3 cm. And lower pole cyst with septation measures 2.4 x 2.9 x 2.5 cm. The upper/midpole cyst measures 3.2 x 3.4 x 3.1 cm. There is an echogenic stone in lower pole measuring 0.8 x 0 0.5 to 0.6 cm. LEFT KIDNEY: 10.5 x 5.3 x 5.4 cm (SAG x AP x TRV). The kidney is normal in size, contour, and echogenicity. Renal cortical thickness is normal. No renal calculi or hydronephrosis. There are anechoic cysts seen. A lower pole cyst measures 2.7 x 2.1 x 3.0 cm and 0.7 x 0.7 x 0.8 cm. A midpole cyst measures 0.6 x 0.6 x 0.6 cm. US/US renal BI IMPRESSION: Bilateral renal cysts. There is nonobstructive echogenic calculi lower pole right kidney measuring 8 mm. There is no caliectasis or hydronephrosis. The findings are stable compared to previous exam 01/07/2022
[2022-03-11 11:49] LABS: Blood Urea Nitrogen 15 mg/dL (9-16); Estimated Glomerular Filt Rate > 60
== END 2022-03-11 09:34 | disposition home or self-care (01) ==
LOC: HO.US 09:33
PROVIDERS: Absent Provider Internal Medicine; PCP Internal Medicine
DX: N20.0 Calculus of kidney (principal); N28.1 Cyst of kidney, acquired
CPT/HCPCS: 36415; 76775; 82565; 84520

== ENCOUNTER 2022-03-14 10:13 | Outpatient (REF) | payer MEDICARE, SELFPAY ==
--- NOTE | ~2022-03-14 | US_ITS ---
EXAMINATION: US LOWER EXTREMITY VENOUS (REFLUX EXAM), BILATERAL CLINICAL INDICATION: Chronic venous insufficiency with lower extremity varicose veins, pain and inflammation COMPARISON: None. TECHNIQUE: Color flow triplex imaging and compression Doppler was performed to evaluate both the deep and the superficial systems bilaterally. To evaluate the superficial system, the examination was performed in the upright position. Color-flow Doppler ultrasound and compression ultrasound were utilized. In addition, maneuvers were utilized to demonstrate reflux. FINDINGS: 1. DEEP VENOUS ULTRASOUND OF THE RIGHT LOWER EXTREMITY: Common Femoral Vein: Compressible, normal respiratory variation and augmented flow. Femoral Vein: Compressible, normal color flow and augmentation. Popliteal Vein: Compressible, normal augmentation. Deep Reflux: There is no evidence of reflux in the deep system in either the common femoral vein or the popliteal vein. There is no evidence of a James's cyst. 2. SUPERFICIAL ULTRASOUND WITH DOPPLER OF RIGHT LOWER EXTREMITY: GREAT SAPHENOUS VEIN: Saphenofemoral Junction: 0.9 cm; Reflux: 0 ms Proximal Thigh: 0.5 cm; Reflux: 1048 ms Mid Thigh: 0.4 cm; Reflux: 1540 ms Above Knee: 0.7 cm; Reflux: 788 ms At Knee: 0.5 cm; Reflux: 952 ms Below Knee: 0.6 cm; Reflux: 904 ms, partial thrombosis Mid Calf: 0.3 cm; Reflux: 920 ms Ankle: 0.4 cm; Reflux: 664 ms DUPLICATED MEDIAL GREAT SAPHENOUS VEIN: Diameter: 0.6 cm Reflux: None DUPLICATED LATERAL GREAT SAPHENOUS VEIN: Diameter: None Imaged Reflux: NA SMALL SAPHENOUS VEIN: Proximal: 0.5 cm; Reflux: 0 ms Distal: 0.3 cm; Reflux: 1404 ms VEIN OF GIACOMINI: None Imaged. PERFORATORS: Location: None Imaged Size: NA Reflux: NA VARICOSITIES: Location: Proximal calf, partial thrombosis Size: 0.4 cm Reflux: 1280 ms 3. DEEP VENOUS ULTRASOUND OF THE LEFT LOWER EXTREMITY: Common Femoral Vein: Compressible, normal respiratory variation and augmented flow. Femoral Vein: Compressible, normal color flow and augmentation. Popliteal Vein: Compressible, normal augmentation. Deep Reflux: There is reflux in the popliteal vein measuring 1200 ms There is no evidence of a James's cyst. 4. SUPERFICIAL ULTRASOUND WITH DOPPLER OF LEFT LOWER EXTREMITY: GREAT SAPHENOUS VEIN: Saphenofemoral Junction: 1.0 cm; Reflux: 0 ms Proximal Thigh: 0.4 cm; Reflux: 0 ms Mid Thigh: 0.5 cm; Reflux: 880 ms Above Knee: 0.4 cm; Reflux: 1476 ms At Knee: 0.4 cm; Reflux: 1052 ms Below Knee: 0.4 cm; Reflux: 680 ms Mid Calf: 0.4 cm; Reflux: 0 ms Ankle: 0.2 cm; Reflux: 0 ms DUPLICATED MEDIAL GREAT SAPHENOUS VEIN: Diameter: None Imaged Reflux: NA DUPLICATED LATERAL GREAT SAPHENOUS VEIN: Diameter: 0.5 cm Reflux: 600 ms SMALL SAPHENOUS VEIN: Proximal: 0.3 cm; Reflux: 656 ms Distal: 0.4 cm; Reflux: 0 ms VEIN OF GIACOMINI: None Imaged. PERFORATORS: Location: None Imaged Size: NA Reflux: NA VARICOSITIES: Location: None Imaged Size: NA Reflux: NA US/US venous duplex LE BI IMPRESSION: Right: Moderate to severe reflux diffusely throughout the right great saphenous vein. Greater saphenous vein in the proximal calf demonstrates partial thrombosis. There is a varicosity arising from the great saphenous vein in the proximal calf which also demonstrate partial thrombosis Left: Moderate to severe reflux in the left great saphenous vein, lateral duplicated great saphenous vein and small saphenous vein as described above
== END 2022-03-14 10:14 | disposition home or self-care (01) ==
LOC: HO.US 10:13
PROVIDERS: Visit Provider Surgery Vascular Surgery
DX: I83.11 Varicose veins of right lower extremity with inflammation (principal)
CPT/HCPCS: 93970

== ENCOUNTER → 2022-03-21 10:14 | Outpatient (BNVA) | payer MEDICARE, SELFPAY | PROVIDERS: PCP Internal Medicine; Visit Provider Surgery Vascular Surgery | DX: I83.11 Varicose veins of right lower extremity with inflammation (principal); M79.672 Pain in left foot; M79.662 Pain in left lower leg | CPT/HCPCS: 99212 ==

== ENCOUNTER → 2022-04-12 07:24 | Outpatient (BNVA) | payer MEDICARE, SELFPAY | PROVIDERS: PCP Internal Medicine; Visit Provider Surgery Vascular Surgery | DX: I83.11 Varicose veins of right lower extremity with inflammation (principal) | CPT/HCPCS: 36482 ==

== ENCOUNTER 2022-04-15 11:17 | Outpatient (REF) | payer MEDICARE, SELFPAY ==
--- NOTE | ~2022-04-15 | US_ITS ---
EXAMINATION: US VENOUS ULTRASOUND WITH DOPPLER LOWER EXTREMITY, RIGHT CLINICAL INFORMATION: This is a 76-year-old female who status post treatment of the right great saphenous vein on 04/12/2022. COMPARISON: None TECHNIQUE: Ultrasound of the deep veins is performed from the hip to the calf with compression sonography and color and pulse Doppler assessment. Spectral analysis with color-flow imaging is performed. FINDINGS: There is normal venous compression and respiratory variation and augmented flow. The visualized common femoral vein, superficial femoral vein, profunda femoral vein, popliteal vein, and the trifurcation region shows no evidence of deep venous thrombosis. There is no significant popliteal fossa cyst. The right great saphenous vein appears closed 1.2 cm from the saphenofemoral junction. The closure begins immediately at the junction with the inferior epigastric vein. The proximal right great saphenous vein appears occluded. There is no extension into the saphenofemoral junction. If the patient's symptoms persist, followup ultrasound in 5 days 7 days might be of value to exclude proximal propagation from a non-visualized calf vein. US/US venous duplex LE RT IMPRESSION: 1. No DVT demonstrated in the right lower extremity. 2. The right great saphenous vein is thrombosed 1.2 cm from the saphenofemoral junction.
== END 2022-04-15 11:18 | disposition home or self-care (01) ==
LOC: HO.US 11:17
PROVIDERS: Visit Provider Surgery Vascular Surgery
DX: M79.604 Pain in right leg (principal)
CPT/HCPCS: 93971

== ENCOUNTER → 2022-04-25 10:20 | Outpatient (BNVA) | payer MEDICARE, SELFPAY | PROVIDERS: PCP Internal Medicine; Visit Provider Urology | DX: N28.1 Cyst of kidney, acquired (principal); N20.0 Calculus of kidney | CPT/HCPCS: Q3014 ==

== ENCOUNTER → 2022-04-30 09:52 | Outpatient (BNVA) | payer MEDICARE, SELFPAY | PROVIDERS: PCP Internal Medicine; Visit Provider Surgery Vascular Surgery | DX: I83.12 Varicose veins of left lower extremity with inflammation (principal) | CPT/HCPCS: 99212 ==

== ENCOUNTER → 2022-05-17 07:23 | Outpatient (BNVA) | payer OTHER, SELFPAY | PROVIDERS: PCP Internal Medicine; Visit Provider Surgery Vascular Surgery | DX: I83.12 Varicose veins of left lower extremity with inflammation (principal) | CPT/HCPCS: 36482 ==

== ENCOUNTER 2022-05-24 10:07 | Outpatient (REF) | payer OTHER, SELFPAY ==
--- NOTE | ~2022-05-24 | US_ITS ---
EXAMINATION: US VENOUS ULTRASOUND WITH DOPPLER LOWER EXTREMITY, LEFT CLINICAL INFORMATION: This is a 76-year-old female who is status post VenaSeal closure of the left great saphenous vein. COMPARISON: None TECHNIQUE: Ultrasound of the deep veins is performed from the hip to the calf with compression sonography and color and pulse Doppler assessment. Spectral analysis with color-flow imaging is performed. FINDINGS: There is normal venous compression and respiratory variation and augmented flow. The visualized common femoral vein, superficial femoral vein, profunda femoral vein, popliteal vein, and the trifurcation region shows no evidence of deep venous thrombosis. There is no significant popliteal fossa cyst. The left great saphenous vein appears to be thrombosed beginning 1.5 cm from the saphenofemoral junction.. US/US venous duplex LE LT IMPRESSION: 1. No DVT demonstrated in the left lower extremity. 2. The left great saphenous vein appears thrombosed 1.5 cm from the saphenofemoral junction.
== END 2022-05-24 10:08 | disposition home or self-care (01) ==
LOC: HO.US 10:07
PROVIDERS: Visit Provider Surgery Vascular Surgery
DX: M79.605 Pain in left leg (principal)
CPT/HCPCS: 93971

== ENCOUNTER 2022-06-13 11:37 | Outpatient (REF) | payer OTHER, SELFPAY ==
--- NOTE | ~2022-06-13 | XR_ITS ---
EXAMINATION: XR SHOULDER, LEFT CLINICAL INFORMATION: Left shoulder pain COMPARISON: None TECHNIQUE: Three views of the left shoulder. FINDINGS: No evidence for acute fracture or dislocation. Slight superior glenohumeral joint space loss although there are prominent spurring changes of the left greater tuberosity and the inferomedial left humeral head. Mild left AC joint space narrowing with small acromial and distal clavicular spurring. Scapula appears to be intact. XR/XR shoulder LT min 2V IMPRESSION: Degenerative changes. No acute fracture or dislocation.
== END 2022-06-13 11:38 | disposition home or self-care (01) ==
LOC: HO.HMGCX 11:37
PROVIDERS: PCP Internal Medicine
DX: M25.512 Pain in left shoulder (principal)
CPT/HCPCS: 73030

== ENCOUNTER 2022-06-17 08:48 | Day surgery (SDC) | payer OTHER, SELFPAY ==
[2022-06-10 14:36] VITALS: BMI 42.4
--- NOTE | ~2022-06-17 | FL_ITS ---
EXAMINATION: XR FLUOROSCOPY WITH IMAGES CLINICAL INFORMATION: Right renal calculus. COMPARISON: CT abdomen 01/03/2022 renal ultrasound 03/11/2022 TECHNIQUE: Fluoroscopy Supervised By: Dr. Chun Ocampo. Fluoroscopy Time: 18 seconds. Cumulative Dose: 982 mGy. Images: 2. FINDINGS: There is contrast in the right renal collecting system and upper to mid right ureter. No hydronephrosis or extravasation of contrast. FL/FL guidance in OR IMPRESSION: Fluoroscopy for urologic procedure.
[2022-06-17 08:52] VITALS: BP 124/80; PULSE 78; RESP 20; TEMP 37; O2SAT 94
[2022-06-17] MEDS: Lactated Ringers 1,000 ML 50 ML IVCONT (09:27)
--- NOTE | 2022-06-17 10:33 | P.CONAN_ITS ---
[facility] Active Problems Active Problems: All Active Problems (Updated 06/13/22 @ 11:37 by Ash Duran MD) Shoulder pain, left (Acute) Diverticulosis (Acute) History of colon polyps (Acute) 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) Osteoarthritis of right knee (Acute) Weight loss (Acute) Osteoarthritis of right knee (Acute) Varicose veins of right lower extremity with inflammation (Acute) Left otitis media (Acute) Physical exam (Acute) Varicose veins of left lower extremity with inflammation (Acute) Left serous otitis media (Acute) Venous (peripheral) insufficiency (Acute) Complex renal cyst (Acute) Morbid obesity with BMI of 40.0-44.9, adult (Acute) UTI (urinary tract infection) (Acute) Mild major depression (Acute) Neck pain (Acute) Renal calculi (Acute) Dyslipidemia (Acute) Right knee pain (Acute) Tremor of left hand (Acute) Non-toxic multinodular goiter (Acute) UTI (urinary tract infection) (Acute) Lumbar degenerative disc disease (Acute) Hypovitaminosis D (Acute) Insomnia (Acute) Constipation due to opioid therapy (Acute) Essential hypertension (Acute) Past Medical History Medical History Complex renal cyst Constipation due to opioid therapy Dyslipidemia Environmental allergies Essential hypertension Gall stones Hypovitaminosis D Insomnia Left leg pain Lumbar degenerative disc disease Mild major depression Morbid obesity with BMI of 40.0-44.9, adult Neck pain Non-toxic multinodular goiter Obese Renal calculi Right knee pain Shoulder pain, left Tremor of left hand UTI (urinary tract infection) UTI (urinary tract infection) Venous (peripheral) insufficiency Family History Family History Father Medical history unknown Mother Lung cancer Colon cancer Family history of problems with anesthesia: No Surgical History Surgical History H/O colonoscopy History of section History of esophagogastroduodenoscopy (EGD) History of left knee replacement History of lithotripsy History of lumpectomy of left breast Hx of biopsy Hx of dilation and curettage Hx of hand surgery History of Problems with Anesthesia: No Social History Social History Household Members Other:: daughter Housing: Apartment Are you a primary resident care aid to a significant other at home: No Do you presently have visiting nurse or other home services: Yes ([employer]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) Alcohol intake: never Patient Tobacco Use Status: Never used Tobacco e-Cigarette/Vaping Use: Never Used Second Hand Smoke Exposure: No Are you DNR?: No Advance Directives: No Advance Directives Information Provided: Yes Advance Directives on File: No Recently lost weight without trying: No Nutrition Risks: No Nutritional Risk service: No 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al status: unemployed 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 Cognitive needs: Yes Hearing needs: No Vision needs: Yes Meds Allergies Allergy/AdvReac Type Severity Reaction Status Date / Time cat dander [CAT DANDER] Allergy Intermediate skin rash Verified 06/13/22 10:26 mite-Dermatophagoides Allergy Intermediate watery Verified 06/13/22 10:26 farinae, skyla itchy [DUST MITES] eyes, sneezing Active Medications: Current Medications Lactated Ringer's (Lr) 1,000 mls @ 50 mls/hr IVCONT .Q20H [place] Last Admin: 06/17/22 09:27 Dose: 50 mls/hr Levofloxacin (Levaquin) 500 mg in 100 mls @ 100 mls/hr IV PREOP ONE Stop: 06/17/22 11:21 Ondansetron HCl (Ondansetron Hcl 4 Mg/2 Ml Vial) 4 mg IVPUSH ONCE PRN PRN Reason: Nausea and Vomiting Oxycodone HCl (Oxycodone Hcl Immed Release 5 Mg Tablet) 5 mg PO ONCE PRN PRN Reason: Pain, Severe (Pain Scale 7-10) Home Medications Medication Instructions Recorded Confirmed Last Taken Type acetaminophen 325 mg tablet 325 mg PO BID PRN Pain 05/22/20 06/10/22 Unknown History (Tylenol) fluticasone propionate 50 1 spray intranasal DAILY 05/22/20 06/10/22 Unknown History mcg/actuation nasal spray,suspension montelukast 10 mg tablet 10 mg PO DAILY 05/22/20 06/10/22 Unknown History tooatqndtlpk-xiuzkdfk-jysluk tablet 1 tab PO DAILY 05/22/20 06/10/22 Unknown History olopatadine 0.1 % eye drops 1 - 2 drp ophthalmic (eye) BID 05/22/20 06/10/22 Unknown History omega-3 fatty acids 1,000 mg 1,000 mg PO DAILY 05/22/20 06/10/22 Unknown History capsule sertraline 100 mg tablet 150 mg PO DAILY 05/22/20 06/10/22 Unknown History trazodone 150 mg tablet 150 mg PO BEDTIME 05/22/20 06/10/22 Unknown History epinephrine 0.3 mg/0.3 mL IM 07/17/21 04/16/22 Unknown History injection, auto-injector mometasone 0.1 % topical cream appl topical 07/17/21 04/16/22 Unknown History Exam Exam Date and Time: June 17, 2022 1033 Height,Weight and Vital Signs: Height 5 ft 2 in Weight 105.233 kg Last Vital Signs Temp 98.6 F 06/17/22 08:52 Pulse 78 06/17/22 08:52 Resp 20 06/17/22 08:52 BP 124/80 06/17/22 08:52 Pulse Ox 94 06/17/22 08:52 O2 Del Method 06/17/22 08:52 Airway Mallampati Class: III TM Dist: >3cm Neck ROM: Full Denture: Upper and Lower Heart: rrr Lungs: clear Assessment and Plan Final Anesthetic Review Family History of Problems with Anesthesia: No History of Problems with Anesthesia: No NPO: Yes ASA Class: III Final Preanesthetic Review: No Changes in Pt Med Stat, Meds/Allgs Chart Reviewed, Consent Obtained/Reviewed and Anes Risks/Benef Reviewed Patient Risk: Intermediate Procedure Risk: Low Anesthetic Plan Anesthetic Plan: GA Disposition: Standard PACU
--- NOTE | 2022-06-17 10:46 | MHC.SHP ---
Pre-Procedural Eval Section A Date of Service: 06/17/22 The patient is an INPATIENT: No Changes since office visit: No Cold of Flu in the past 2 weeks, No New Medical Problems, No Changes in Medication and No Patient answered all questions The History & Physical has been completed within 30 days and I have reviewed it.: No Section B Chief Complaint: Calculus of kidney Details of Present Illness: right renal stone, prior ESWL, prior and persistent fragmentation with discomfort Relevant Family History (Specify if Yes): No Relevant Social History: None Present Medications: see Short Stay Collaborative assessment Medical History: No relevant PMH History of Previous Operations: Relevant previous surgery/procedure and date(s) Allergies: Allergies Allergy/AdvReac Type Severity Reaction Status Date / Time cat dander [CAT DANDER] Allergy Intermediate skin rash Verified 06/13/22 10:26 mite-Dermatophagoides Allergy Intermediate watery Verified 06/13/22 10:26 farinae, skyla itchy [DUST MITES] eyes, sneezing Review of Systems Sugical H&P ROS: Negative: Constitution, Cardiovascular, Respiratory, Neurological, Psychiatric, Hem-Onc, Allergic/Immunologic, Gastrointestinal, Genitourinary, Musculoskeletal, Integumentary, Endocrine and Eyes/Ears/Nose/Throat Exam Surgical H&P Exam: Normal: HEENT, Normal: Heart, Normal: Lungs, Normal: Extremities, Normal: Abdomen, Normal: Skin and Normal: Neurological Plan Diagnosis/Plan: Unchanged ( cystoscopy, right retrograde, right flexible ureteroscopy with laser lithotripsy and stent placement) I have reviewed the history and physical and performed a pertinent physical examination on my patient. No changes have occurred unless specified.
--- NOTE | 2022-06-17 11:22 | W.PM.OPN ---
Operative Note Operative Note Date of Service: 06/17/22 Narrative: PreOperative Diagnosis: right renal stone Post Operative Diagnosis: no stone seen Procedure: - cystoscopy, right retrograde - right dilatation of ureteric orifice under fluoroscopy - right ureteroscopy Surgeon: Dr Chun Ocampo Anesthesia: General Indications for procedure: prior right ESWL. 6 mm persistent stone seen on imaging. Patient still with symptoms on right side. Recommend ureteroscopy given prior ESWL. Procedure: After informed consent was verified patient was brought to the operating placed in supine position. Anesthesia was administered per protocol. Patient was placed in modified dorsal lithotomy position and prepped and draped in a sterile fashion. Safety pause time-out and side of surgery confirmed. Antibiotics confirmed. 22 [place] cystoscope was inserted per urethra. Bladder was normal in its entirety. Both ureteric orifices were in normal position. The Right ureteric orifice was cannulated and a retrograde examination was performed. normal diameter ureter seen. No filling defects seen within right renal pelvis.. A Sensor guidewire was placed up to the level of the renal pelvis under fluoroscopy. The rigid cystoscope was removed and the inner cannula of ureteric access sheath was used under fluoroscopy to dilate the ureteric orifice. The ureteric access sheath was placed and the inner cannula with access wire removed. The digital flexible ureteral scope was placed. Examination of complete renal pelvis made. There was moderate moth-eaten papilla upper calyx indicative of recent stone formation and passage. No stone seen. The bladder was emptied. The patient tolerated the procedure well and was extubated in the operating room, and transferred in stable condition to the recovery area. Pathology: None Drains: none
[2022-06-17 11:25] VITALS: BP 175/97; PULSE 73; RESP 20; TEMP 36.5; O2SAT 100
[2022-06-17 11:30] VITALS: BP 185/97; PULSE 69; RESP 20; O2SAT 94
[2022-06-17 11:35] VITALS: BP 184/99; PULSE 72; RESP 20; O2SAT 94
[2022-06-17 11:40] VITALS: BP 185/92; PULSE 71; RESP 20; TEMP 36.8; O2SAT 95
[2022-06-17] MEDS: Acetaminophen 325 MG TABLET 650 MG PO (12:18)
[2022-06-17] MEDS: Phenazopyridine HCL 100 MG TABLET PO (12:18)
== END 2022-06-17 12:46 | disposition home or self-care (01) ==
PROVIDERS: PCP Internal Medicine; Visit Provider Urology
PROC: (CPT 52351; principal; 2022-06-17 13:10)
DX: R10.9 Unspecified abdominal pain (principal); N28.89 Other specified disorders of kidney and ureter; N28.1 Cyst of kidney, acquired; Z87.442 Personal history of urinary calculi; Z87.440 Personal history of urinary (tract) infections; Z79.82 Long term (current) use of aspirin; I10 Essential (primary) hypertension; E55.9 Vitamin D deficiency, unspecified; E78.5 Hyperlipidemia, unspecified
CPT/HCPCS: 52351; C1758; C1769; C1894; J1100; J1956; J2405; J3010; Q9965

== ENCOUNTER → 2022-06-18 09:53 | Outpatient (BNVA) | payer OTHER, SELFPAY | PROVIDERS: PCP Internal Medicine; Visit Provider Surgery | DX: C50.912 Malignant neoplasm of unspecified site of left female breast (principal) | CPT/HCPCS: 99212 ==

== ENCOUNTER → 2022-06-25 13:38 | Outpatient (BNVA) | payer OTHER, SELFPAY | PROVIDERS: PCP Internal Medicine; Visit Provider Urology | DX: N20.0 Calculus of kidney (principal) | CPT/HCPCS: 99212 ==

== ENCOUNTER 2022-07-22 09:38 | Outpatient (REF) | payer OTHER, SELFPAY ==
[2022-07-22 11:08] LABS: Alanine Aminotransferase 9 U/L (0-31); Albumin Level 3.6 g/dL (3.5-5.0); Alkaline Phosphatase 67 U/L (39-117); Anion Gap 14 (12-20); Aspartate Amino Transferase 12 U/L (5-31); Bilirubin Total 0.3 mg/dL (0.0-1.0); Blood Urea Nitrogen 12 mg/dL (9-16); Calcium 9.4 mg/dL (8.4-10.2); Carbon Dioxide 33 mmol/L (22-29); Chloride 98 mmol/L (96-108); Cholesterol 167 mg/dL; Estimated Glomerular Filt Rate > 60; Glucose Fasting 94 mg/dL (60-99); HDL Cholesterol 46 mg/dL; LDL Cholesterol Calculated 109 mg/dl; Potassium 3.7 mmol/L (3.3-5.1); Sodium 141 mmol/L (135-145); Total Protein 7.1 g/dL (6.5-8.0); Triglycerides 63 mg/dL; Vitamin D 25-OH Total 63.9 ng/mL (>30)
== END 2022-07-22 09:39 | disposition home or self-care (01) ==
LOC: HO.LAB 09:38
PROVIDERS: Absent Provider Internal Medicine; PCP Internal Medicine; Visit Provider Internal Medicine
DX: Z00.00 Encounter for general adult medical examination without abnormal findings (principal); E55.9 Vitamin D deficiency, unspecified; E78.5 Hyperlipidemia, unspecified
CPT/HCPCS: 36415; 80053; 80061; 82306

== ENCOUNTER 2022-08-22 10:41 | Outpatient (REF) | payer OTHER, SELFPAY | END 2022-08-22 10:42 | disposition home or self-care (01) | LOC: HO.MAMMO 10:41 | PROVIDERS: PCP Internal Medicine; Visit Provider Internal Medicine | DX: Z13.89 Encounter for screening for other disorder (principal) ==

== ENCOUNTER 2022-10-17 09:58 | Outpatient (REF) | payer OTHER, SELFPAY ==
--- NOTE | ~2022-10-17 | MM_ITS ---
EXAMINATION: MM SCREENING DIGITAL BREAST TOMOSYNTHESIS, BILATERAL CLINICAL INFORMATION: Screening. Asymptomatic. Previous left breast lumpectomy. COMPARISON: Mammography: October 12, 2021 and studies dating back to September 19, 2015 TECHNIQUE: Digital breast tomosynthesis is performed in both the craniocaudal and mediolateral oblique views along with computer-aided detection (CAD). Synthesized 2D images are generated from the tomosynthesis. Additional left breast exaggerated craniocaudal view performed. FINDINGS: There are scattered areas of fibroglandular density (ACR BI-RADS breast composition Category b). There are no new significant masses, abnormal calcifications, or other abnormalities. Postsurgical change is again seen in the upper outer aspect of the left breast. MM/MM tomosynthesis screening BI IMPRESSION: No significant changes from prior exam. ASSESSMENT: BI-RADS 2: Benign RECOMMENDATION: Routine annual mammography screening. This patient's information was entered into a reminder system with a target due date for their next mammogram.
== END 2022-10-17 09:59 | disposition home or self-care (01) ==
LOC: HO.MAMMO 09:58
PROVIDERS: PCP Internal Medicine; Visit Provider Internal Medicine
DX: Z12.31 Encounter for screening mammogram for malignant neoplasm of breast (principal)
CPT/HCPCS: 77063; 77067

== ENCOUNTER → 2022-10-18 09:21 | Outpatient (BNVA) | payer OTHER, SELFPAY | PROVIDERS: PCP Internal Medicine; Visit Provider Physician Assistant | DX: M17.11 Unilateral primary osteoarthritis, right knee (principal) | CPT/HCPCS: 20610; 99212; J1040 ==

== ENCOUNTER → 2022-11-14 10:38 | Outpatient (BNVA) | payer OTHER, SELFPAY | PROVIDERS: PCP Internal Medicine; Visit Provider Surgery Vascular Surgery | DX: I83.893 Varicose veins of bilateral lower extremities with other complications (principal); I80.3 Phlebitis and thrombophlebitis of lower extremities, unspecified | CPT/HCPCS: 99212 ==

== ENCOUNTER 2022-12-03 08:50 | Outpatient (REF) | payer OTHER, SELFPAY ==
--- NOTE | ~2022-12-03 | US_ITS ---
EXAMINATION: US THYROID CLINICAL INFORMATION: Nontoxic multinodular goiter. COMPARISON: Ultrasound thyroid 06/05/2021 and 02/29/2020. US-guided thyroid biopsy 10/25/2021. TECHNIQUE: Linear transducer grayscale and color Doppler examination with attention to the region of the thyroid. FINDINGS: SIZE: Measurements of the thyroid lobes and nodules are given in sagittal, anteroposterior and transverse dimensions respectively. Right Thyroid Lobe: 5.2 x 1.7 x 2.4 cm, volume 11.1 mL. Previously 5.0 x 1.4 x 2.9 cm, volume 11.1 mL. Parenchyma: The gland echotexture is heterogeneous. Thyroid vascularity is increased. Left Thyroid Lobe: 4.7 x 2.0 x 2.8 cm, volume 13.8 mL. Previously 4.6 x 1.9 x 2.3 cm, volume 12.2 mL. Parenchyma: The gland echotexture is heterogeneous. Thyroid vascularity is increased. Isthmus: 0.8 cm in maximum AP dimension. Previously 0.7 cm. Estimated total number of nodules greater than or equal to 1 cm: 3. Banana Carrier nodules are described as follows: 1. Location: Right mid. Size: 1.1 x 0.5 x 0.6 cm, volume 0.2 mL. Previously: 0.5 x 0.2 x 0.5 cm, volume 0.02 mL. Nodule characteristics: Composition: Solid (2). Echogenicity: Isoechoic (1). Shape: Not taller than wide (0). Margins: Smooth (0). Echogenic Foci: Macrocalcifications (1). ACR TI-RADS total points: 4 Previous: 4 ACR TI-RADS category: 4 Previous: 4 Significant change in size (>/= 20% in 2 dimensions and minimal increase of 2 mm or 50% or greater increase in volume): Yes Change in features: No Change in ACR TI-RADS risk category: No 2. Location: Right inferior. Size: 1.7 x 1.5 x 0.9 cm, volume 1.12 mL. Previously: 1.2 x 0.7 x 1.5 cm, volume 0.6 mL. Nodule characteristics: Composition: Solid (2). Echogenicity: Very hypoechoic (3). Shape: Not taller than wide (0). Margins: Smooth (0). Echogenic Foci: Macrocalcifications (1). ACR TI-RADS total points: 6 Previous: 4 ACR TI-RADS category: 5 Previous: 4 Significant change in size (>/= 20% in 2 dimensions and minimal increase of 2 mm or 50% or greater increase in volume): Yes Change in features: No Change in ACR TI-RADS risk category: No 3. Location: Left mid. Size: 2.3 x 2.2 x 1.5 cm, volume 3.7 mL. Previously: 2.3 x 1.3 x 2.7 cm, volume 4.6 mL. Nodule characteristics: Composition: Solid (2). Echogenicity: Hypoechoic (2). Shape: Not taller than wide (0). Margins: Smooth (0). Echogenic Foci: None (0). ACR TI-RADS total points: 4 Previous: 4 ACR TI-RADS category: 4 Previous: 4 Significant change in size (>/= 20% in 2 dimensions and minimal increase of 2 mm or 50% or greater increase in volume): No Change in features: No Change in ACR TI-RADS risk category: No 4. Location: Left mid. Size: 0.9 x 0.8 x 0.6 cm, volume 0.2 mL. Previously: 1.2 x 0.6 x 1.2 cm, volume 0.5 mL. Nodule characteristics: Composition: Solid (2). Echogenicity: Hypoechoic (2). Shape: Not taller than wide (0). Margins: Smooth (0). Echogenic Foci: None (0). ACR TI-RADS total points: 4 Previous: 4 ACR TI-RADS category: 4 Previous: 4 Significant change in size (>/= 20% in 2 dimensions and minimal increase of 2 mm or 50% or greater increase in volume): No Change in features: No Change in ACR TI-RADS risk category: No 5. Location: Left inferior. Size: 0.9 x 0.5 x 1.1 cm, volume 0.2 mL. Previously: Not seen on the previous study. Nodule characteristics: Composition: Mixed cystic and solid (1). Echogenicity: Isoechoic (1). Shape: Not taller than wide (0). Margins: Smooth (0). Echogenic Foci: None (0). ACR TI-RADS total points: 2 ACR TI-RADS category: 2 NODES: No lymphadenopathy is seen in the tissue surrounding the thyroid gland. US/US thyroid IMPRESSION: Right inferior pole 1.7 cm nodule in left mid pole 2.3 cm nodule medially ACR criteria for tissue sampling.. ACR TI-RADS RECOMMENDATION REFERENCE: Ultrasound-guided fine-needle aspiration, followup ultrasound, no further follow up. * TR1 (0 point) and TR2 (2 points): No FNA or follow up. * TR3 (3 points): FNA if more than or equal to 2.5 cm in maximum dimension, followup ultrasound in 1, 3 and 5 years if 1.5 to 2.4 cm in maximum dimension. * TR4 (4-6 points): FNA if more than or equal to 1.5 cm in maximum dimension, followup ultrasound in 1, 2, 3 and 5 years if 1 to 1.4 cm in maximum dimension. * TR5 (more than or equal to 7 points): FNA if more than or equal to 1 cm in maximum dimension, followup ultrasound every year for 5 years if 0.5 to 0.9 cm in maximum dimension. * TR3, TR4 or TR5 nodules that are below the size threshold for followup receive no follow up.
== END 2022-12-03 08:51 | disposition home or self-care (01) ==
LOC: HO.US 08:50
PROVIDERS: PCP Internal Medicine; Visit Provider Internal Medicine
DX: E04.2 Nontoxic multinodular goiter (principal); I83.11 Varicose veins of right lower extremity with inflammation; I83.12 Varicose veins of left lower extremity with inflammation
CPT/HCPCS: 76536; 99212

== ENCOUNTER 2022-12-05 11:58 | Outpatient (REF) | payer OTHER, SELFPAY ==
[2022-12-05 13:41] LABS: Free T4 (Free Thyroxine) 0.82 ng/dL (0.71-1.85); Thyroid Stimulating Hormone 1.71 uIU/mL (0.32-4.0)
== END 2022-12-05 11:59 | disposition home or self-care (01) ==
LOC: HO.LAB 11:58
PROVIDERS: PCP Internal Medicine; Visit Provider Internal Medicine
DX: E04.2 Nontoxic multinodular goiter (principal)
CPT/HCPCS: 36415; 84439; 84443

== ENCOUNTER → 2022-12-09 09:24 | Outpatient (BNVA) | payer OTHER, SELFPAY | PROVIDERS: PCP Internal Medicine; Visit Provider Internal Medicine | DX: E04.2 Nontoxic multinodular goiter (principal) | CPT/HCPCS: 99212 ==

== ENCOUNTER → 2022-12-12 10:11 | Outpatient (BNVA) | payer OTHER, SELFPAY | PROVIDERS: PCP Internal Medicine; Visit Provider Surgery | DX: C50.912 Malignant neoplasm of unspecified site of left female breast (principal) | CPT/HCPCS: 99212 ==

== ENCOUNTER 2022-12-23 09:56 | Outpatient (REF) | payer OTHER, SELFPAY ==
--- NOTE | ~2022-12-23 | US_ITS ---
EXAMINATION: US RETROPERITONEAL LIMITED (RENAL ONLY) CLINICAL INFORMATION: Renal calculus. COMPARISON: Renal ultrasound dated 03/11/2022; CT abdomen and pelvis dated 01/03/2022.. TECHNIQUE: Real-time imaging of the kidneys. FINDINGS: RIGHT KIDNEY: 9.7 x 5.3 x 6.8 cm (SAG x AP x TRV). The kidney is normal in size, contour, and echogenicity. Renal cortical thickness is normal. No focal parenchymal solid lesions. At the lower pole, a 9 mm nonobstructing calculus is seen, with twinkle artifact. No hydronephrosis. At the upper pole, a 1.9 cm in maximal diameter benign, simple cyst is seen. At the interpolar aspect, a 3.7 cm in maximal diameter benign, simple cyst is seen. At the lower pole, there is a mildly complex (Bosniak 2) cyst with fine septation measuring 2.8 x 2.5 x 2.[address] examination dated 03/11/2022, this measured 2.4 x 2.9 x 2.5 cm.. LEFT KIDNEY: 9.7 x 5.3 x 6.8 cm (SAG x AP x TRV). The kidney is normal in size, contour, and echogenicity. Renal cortical thickness is normal. No calculi or focal parenchymal lesions. There is pelviectasis, without neptali hydronephrosis. There are simple cysts, the largest at the interpolar aspect measuring 2.5 cm maximal diameter. US/US renal BI IMPRESSION: 1. A 9 mm nonobstructing right renal lower pole calculus is seen. No left renal calculus is seen. No hydronephrosis is noted bilaterally. 2. There are benign simple and likely benign mildly complex (Bosniak 2) renal cysts redemonstrated. These require no imaging follow-up.
== END 2022-12-23 09:57 | disposition home or self-care (01) ==
LOC: HO.US 09:56
PROVIDERS: PCP Internal Medicine; Visit Provider Urology
DX: N20.0 Calculus of kidney (principal)
CPT/HCPCS: 76775

== ENCOUNTER 2022-12-24 09:30 | Outpatient (REF) | payer OTHER, MEDICAID, SELFPAY ==
[2022-12-24 09:45] LABS: MANUAL DIFF FLAG NO
[2022-12-24 10:22] LABS: Basophils Percent Auto 0.5 % (0-2); Eosinophils Absolute Auto 0.2 X10*3/uL (0.0-0.4); Eosinophils Percent Auto 3.3 % (0-4); Hematocrit 34.8 % (37.0-47.0); Hemoglobin 10.6 g/dl (12.0-16.0); Imm Gran Abs Auto 0.02 X10*3/uL (0.00-0.03); Imm Gran Pct Auto 0.4 % (0.0-0.4); Lymphocytes Absolute Auto 1.6 X10*3/uL (1.2-4.9); Lymphocytes Percent Auto 28.4 % (20-40); Mean Corpuscular HGB Conc 30.5 g/dl (31.0-35.0); Mean Corpuscular Hemoglobin 28.7 pg (27.0-33.0); Mean Corpuscular Volume 94.3 fL (80.0-98.0); Mean Platelet Volume 10.7 fL (9.4-12.3); Monocytes Absolute Auto 0.4 X10*3/uL (0.1-1.2); Monocytes Percent Auto 6.9 % (2-11); Neutrophils Absolute Auto 3.4 x10*3/uL (2.0-8.3); Neutrophils Percent Auto 60.5 % (45-73); Platelet Count 202 X10*3/uL (160-400); Red Blood Count 3.69 X10*6/uL (4.20-5.50); Red Cell Distribution Width 14.5 % (11.0-16.0); White Blood Count 5.5 X10*3/uL (4.8-10.8)
[2022-12-24 11:10] LABS: Alanine Aminotransferase 7 U/L (0-31); Albumin Level 4.1 g/dL (3.5-5.0); Alkaline Phosphatase 65 U/L (39-117); Anion Gap 17 (12-20); Aspartate Amino Transferase 14 U/L (5-31); Bilirubin Total 0.6 mg/dL (0.0-1.0); Blood Urea Nitrogen 21 mg/dL (9-16); Calcium 9.5 mg/dL (8.4-10.2); Carbon Dioxide 25 mmol/L (22-29); Chloride 104 mmol/L (96-108); Cholesterol 204 mg/dL; Estimated Glomerular Filt Rate 60; Glucose Fasting 85 mg/dL (60-99); HDL Cholesterol 46 mg/dL; Iron 70 mcg/dL (30-160); LDL Cholesterol Calculated 143 mg/dl; Percent Iron Saturation 26 % (15-50); Potassium 4.9 mmol/L (3.3-5.1); Sodium 141 mmol/L (135-145); Total Iron Binding Capacity 272 mcg/dL (228-428); Total Protein 7.3 g/dL (6.5-8.0); Triglycerides 78 mg/dL; Unsaturated Iron Binding 202 ug/dL
[2022-12-24 11:29] LABS: Folate > 20.0 ng/mL (> or = 4.0); Vitamin B12 709 pg/mL (200-900); Vitamin D 25-OH Total 68.2 ng/mL (>30)
== END 2022-12-24 09:31 | disposition home or self-care (01) ==
LOC: HO.LAB 09:30
PROVIDERS: PCP Internal Medicine; Visit Provider Internal Medicine
DX: E55.9 Vitamin D deficiency, unspecified (principal); D64.9 Anemia, unspecified; E53.8 Deficiency of other specified B group vitamins; E78.5 Hyperlipidemia, unspecified
CPT/HCPCS: 36415; 80053; 80061; 82306; 82607; 82746; 83540; 85025

== ENCOUNTER → 2022-12-26 10:55 | Outpatient (BNVA) | payer OTHER, SELFPAY | PROVIDERS: PCP Internal Medicine; Visit Provider Surgery Vascular Surgery | DX: S81.802A Unspecified open wound, left lower leg, initial encounter (principal) | CPT/HCPCS: 99212 ==

== ENCOUNTER → 2023-01-03 11:46 | Outpatient (BNVA) | payer OTHER, SELFPAY | PROVIDERS: PCP Internal Medicine; Visit Provider Urology | DX: N20.0 Calculus of kidney (principal) | CPT/HCPCS: Q3014 ==

== ENCOUNTER → 2023-01-14 10:36 | Outpatient (BNVA) | payer OTHER, MEDICAID, SELFPAY | PROVIDERS: PCP Internal Medicine; Visit Provider Surgery Vascular Surgery | DX: I83.12 Varicose veins of left lower extremity with inflammation (principal) | CPT/HCPCS: 99212 ==

== ENCOUNTER → 2023-01-17 08:07 | Outpatient (BNVA) | payer OTHER, MEDICAID, SELFPAY | PROVIDERS: PCP Internal Medicine; Visit Provider Surgery Vascular Surgery | DX: I83.12 Varicose veins of left lower extremity with inflammation (principal) | CPT/HCPCS: 37765 ==

== ENCOUNTER → 2023-01-30 08:38 | Outpatient (BNVA) | payer OTHER, MEDICAID, SELFPAY | PROVIDERS: PCP Internal Medicine; Visit Provider Surgery Vascular Surgery | DX: I83.12 Varicose veins of left lower extremity with inflammation (principal) | CPT/HCPCS: 99212 ==

== ENCOUNTER 2023-02-20 09:54 | Outpatient (AMB) | payer OTHER, SELFPAY ==
[2023-02-20 10:02] VITALS: BMI 38.4
--- NOTE | 2023-02-20 10:02 | MHC.OFFVIS ---
Intake Vital Signs 02/20/23 10:02 Height 5 ft 2 in Weight 210 lb BMI 38.4 Intake Visit Reasons: 3 week wound check Intake Note: 3 week wound check Left LE s/p Left LE micro 01/17/23. Pt still has 3 ulcers, pt has troubles with itching the ulcered area. Changes band aid daily, has drainage, does expose to air as much as possible to dry the areas Accompanied by: daughter/MANAGER LINE Allergies cat dander [CAT DANDER] Allergy (Intermediate, Verified 02/20/23 10:07) skin rash mite-Dermatophagoides farinae, skyla [DUST MITES] Allergy (Intermediate, Verified 02/20/23 10:07) watery itchy eyes, sneezing HPI 3 week wound check HPI Details Very pleasant 77-year-old female presents for follow-up regarding 3 open ulcerated areas she has undergone microphlebectomy and removal of some of that underlying tissue. She has developed 3 small ulcerated areas. There are quite tender and uncomfortable for her. She now presents for routine follow-up. [facility], [facility] Medical History Complex renal cyst Constipation due to opioid therapy Dyslipidemia Environmental allergies Essential hypertension Gall stones Hypovitaminosis D Insomnia Left leg pain Lumbar degenerative disc disease Mild major depression Morbid obesity with BMI of 40.0-44.9, adult Neck pain Non-toxic multinodular goiter Obese Renal calculi Right knee pain Shoulder pain, left Tremor of left hand UTI (urinary tract infection) UTI (urinary tract infection) Venous (peripheral) insufficiency Surgical History H/O colonoscopy History of section History of esophagogastroduodenoscopy (EGD) History of left knee replacement History of lithotripsy History of lumpectomy of left breast Hx of biopsy Hx of dilation and curettage Hx of hand surgery Family History Father Medical history unknown Mother Lung cancer Colon cancer Social History Household Members: None Household Members Other:: daughter Housing: Apartment Are you a primary acute care registered nurse to a significant other at home: No Do you presently have visiting nurse or other home services: Yes (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) Alcohol intake: never Patient Tobacco Use Status: Never used Tobacco e-Cigarette/Vaping Use: Never Used Second Hand Smoke Exposure: No service: No 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al status: unemployed and disabled 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 Cognitive needs: Yes Hearing needs: No Vision needs: Yes Review of Systems Const All systems reviewed & are unremarkable except as noted in HPI and below Reports no additional complaints ENT Reports Normal hearing present Card Denies chest pain, Denies chest pain at rest, Denies chest pain with activity and Denies pedal edema Resp Denies cough GI Denies abdominal pain Musc Denies abnormal gait, Denies muscle cramps and Denies radiating pain into limb Skin/Breast Denies skin ulcer and Denies wounds Neuro Reports Normal hearing present and Denies abnormal gait Psych Reports no additional complaints Physical Exam Vital Signs: BMI result Body Mass Index 38.4 Const General: cooperative, healthy appearing and comfortable Orientation/consciousness: oriented to person, oriented to place and oriented to time HEENT Head: Yes normal to inspection Neck Neck: Yes normal visual inspection Carotids: no bruits Chest Chest palpation & inspection: normal inspection of the chest Resp Effort & Inspection: normal respiratory effort and able to speak in complete sentences Auscultation: clear to auscultation bilaterally, no crackles, no rales, no rhonchi and no wheezes Cardio Rate: regular rate Rhythm: regular rhythm Heart sounds: S1 normal heart sound present and S2 normal heart sound present Bruits: no carotid bruits Peripheral pulses: Peripheral pulses 2+ throughout GI Inspection: Yes normal to inspection Skin Other: Left medial thigh 3 small ulcerated areas with hypertrophic tissue Wounds: no wounds Hair: normal Neuro General: oriented to person, oriented to place and oriented to time Cranial nerves: Yes CN's II-XII intact bilaterally and Yes Normal hearing present Cognition (Neuro): normal cognition Motor exam (neuro): 5/5 motor strength present throughout Extrem Other: venous exam: No significant superficial varicosities or spider telangiectasias, minimal edema General: No clubbing, No cyanosis and No edema Psych Appearance: grossly normal Mental Status: mental status grossly normal Speech and movement: Normal speech and movement present Assessment & Plan Assessment & Plan (1) Leg wound, left: Code(s): S81.802A - Unspecified open wound, left lower leg, initial encounter Plan: In short patient has 3 small nonhealing ulcers. The additional tissue was treated with silver nitrate sticks. Dressing and wound care was discussed with the patient. She will follow up with us in approximately 3 weeks time for wound check. Thank you for allowing us to assist in this patient's care. If there are questions or concerns please do not hesitate to contact us. Coding Level of Care Code Est Pt Level 4 (62784) Diagnoses Leg wound, left S81.802A
== END 2023-02-20 10:32 | disposition home or self-care (01) ==
PROVIDERS: PCP Internal Medicine; Visit Provider Surgery Vascular Surgery
DX: L97.128 Non-pressure chronic ulcer of left thigh with other specified severity (principal)
CPT/HCPCS: 17250; 99214

== ENCOUNTER → 2023-02-20 09:54 | Outpatient (BNVA) | payer OTHER, MEDICAID, SELFPAY | PROVIDERS: PCP Internal Medicine; Visit Provider Surgery Vascular Surgery | DX: S81.802A Unspecified open wound, left lower leg, initial encounter (principal); L97.929 Non-pressure chronic ulcer of unspecified part of left lower leg with unspecified severity; Z98.890 Other specified postprocedural states | CPT/HCPCS: 17250; 99212 ==

== ENCOUNTER 2023-03-20 10:31 | Outpatient (AMB) | payer OTHER, SELFPAY ==
--- NOTE | 2023-03-20 10:32 | A.OFFVIS_ITS ---
Intake Intake Visit Reasons: 3 week wound check Intake Note: Patient is here for a 3 week follow up wound check Allergies cat dander [CAT DANDER] Allergy (Intermediate, Verified 03/20/23 10:34) skin rash mite-Dermatophagoides farinae, skyla [DUST MITES] Allergy (Intermediate, Verified 03/20/23 10:34) watery itchy eyes, sneezing HPI 3 week wound check HPI Details Very pleasant 77-year-old female presents for follow-up regarding 3 open ulcerated areas. She had undergone microphlebectomy and developed some hyp ertrophic tissue areas. They have been tender for her but she reports in general they are improving. She now presents for follow-up [facility] Medical History Complex renal cyst Constipation due to opioid therapy Dyslipidemia Environmental allergies Essential hypertension Gall stones Hypovitaminosis D Insomnia Left leg pain Lumbar degenerative disc disease Mild major depression Morbid obesity with BMI of 40.0-44.9, adult Neck pain Non-toxic multinodular goiter Obese Renal calculi Right knee pain Shoulder pain, left Tremor of left hand UTI (urinary tract infection) UTI (urinary tract infection) Venous (peripheral) insufficiency Surgical History H/O colonoscopy History of section History of esophagogastroduodenoscopy (EGD) History of left knee replacement History of lithotripsy History of lumpectomy of left breast Hx of biopsy Hx of dilation and curettage Hx of hand surgery Family History Father Medical history unknown Mother Lung cancer Colon cancer Social History Household Members: None Household Members Other:: daughter Housing: Apartment Are you a primary health care sanitary technician to a significant other at home: No Do you presently have visiting nurse or other home services: Yes (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) Alcohol intake: never Patient Tobacco Use Status: Never used Tobacco e-Cigarette/Vaping Use: Never Used Second Hand Smoke Exposure: No service: No 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al status: unemployed and disabled 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 Cognitive needs: Yes Hearing needs: No Vision needs: Yes Review of Systems Const All systems reviewed & are unremarkable except as noted in HPI and below Reports no additional complaints ENT Reports Normal hearing present Card Denies chest pain, Denies chest pain at rest, Denies chest pain with activity and Denies pedal edema Resp Denies cough GI Denies abdominal pain Musc Denies abnormal gait, Denies muscle cramps and Denies radiating pain into limb Skin/Breast Denies skin ulcer and Denies wounds Neuro Reports Normal hearing present and Denies abnormal gait Psych Reports no additional complaints Physical Exam Const General: cooperative, healthy appearing and comfortable Orientation/consciousness: oriented to person, oriented to place and oriented to time HEENT Head: Yes normal to inspection Neck Neck: Yes normal visual inspection Carotids: no bruits Chest Chest palpation & inspection: normal inspection of the chest Resp Effort & Inspection: normal respiratory effort and able to speak in complete sentences Auscultation: clear to auscultation bilaterally, no crackles, no rales, no rhonchi and no wheezes Cardio Rate: regular rate Rhythm: regular rhythm Heart sounds: S1 normal heart sound present and S2 normal heart sound present Bruits: no carotid bruits Peripheral pulses: Peripheral pulses 2+ throughout GI Inspection: Yes normal to inspection Skin Other: Three nonhealing wound: 0.4 cm medial thigh 0.6 cm medial knee 0.4 cm medial calf Wounds: no wounds Hair: normal Neuro General: oriented to person, oriented to place and oriented to time Cranial nerves: Yes CN's II-XII intact bilaterally and Yes Normal hearing present Cognition (Neuro): normal cognition Motor exam (neuro): 5/5 motor strength present throughout Extrem Other: venous exam: No significant superficial varicosities or spider telangiectasias, minimal edema General: No clubbing, No cyanosis and No edema Psych Appearance: grossly normal Mental Status: mental status grossly normal Speech and movement: Normal speech and movement present Assessment & Plan Assessment & Plan (1) Leg wound, left: Code(s): S81.802A - Unspecified open wound, left lower leg, initial encounter Plan: In short patient continues to have these nonhealing wounds. They are areas of hypertrophic tissue. They were treated with silver nitrate sticks. We did di scussed local wound care along with dressings. She will follow up with us in approximately 3 weeks time. Thank you for allowing us to assist in her care Coding Level of Care Code Est Pt Level 3 (81500) Diagnoses Leg wound, left S81.802A
== END 2023-03-20 10:48 | disposition home or self-care (01) ==
PROVIDERS: PCP Internal Medicine; Visit Provider Surgery Vascular Surgery
DX: S81.802A Unspecified open wound, left lower leg, initial encounter (principal)
CPT/HCPCS: 99213

== ENCOUNTER → 2023-03-20 10:31 | Outpatient (BNVA) | payer OTHER, SELFPAY | PROVIDERS: PCP Internal Medicine; Visit Provider Surgery Vascular Surgery | DX: S81.802D Unspecified open wound, left lower leg, subsequent encounter (principal) | CPT/HCPCS: 99212 ==

== ENCOUNTER 2023-03-27 08:35 | Outpatient (REF) | payer OTHER, SELFPAY ==
--- NOTE | ~2023-03-27 | US_ITS ---
Ultrasound-guided biopsy of the nodule in the inferior aspect of the right lobe of the thyroid gland INDICATIONS: 1.2 x 0.73 x 1.14 cm nodule in the lower pole of the right lobe of the thyroid gland After informed and written consent was obtained an official timeout was performed immediately prior to the procedure. PROCEDURE: The skin was prepped and draped in usual fashion. 1% Xylocaine was used for local anesthetic. Under ultrasound guidance four needle aspirations were obtained. The specimens were analyzed by the pathology department and felt to be adequate for diagnostic purposes. US/US guided fine needle asp IMPRESSION: Ultrasound-guided biopsy of the nodule in the right lobe of the thyroid gland
[2023-03-27] MEDS: Lidocaine HCl 1 % 20 ML VIAL 5 ML SUBCUT (11:39)
== END 2023-03-27 08:36 | disposition home or self-care (01) ==
LOC: HO.US 08:35
PROVIDERS: PCP Internal Medicine; Visit Provider Internal Medicine
DX: E04.2 Nontoxic multinodular goiter (principal)
CPT/HCPCS: 10005; 88172; 88173; 88177

== ENCOUNTER → 2023-03-27 08:36 | Outpatient (BNV) | payer OTHER, SELFPAY | PROVIDERS: PCP Internal Medicine; Visit Provider Radiology Vascular & Interventional Radiology | DX: E04.1 Nontoxic single thyroid nodule (principal) | CPT/HCPCS: 10005 ==

== ENCOUNTER 2023-04-08 10:29 | Outpatient (AMB) | payer OTHER, SELFPAY ==
--- NOTE | 2023-04-08 10:31 | A.OFFVIS_ITS ---
Intake Intake Visit Reasons: 3 week follow up wound check Intake Note: Patient is here for a 3 week follow up wound check left leg. Histology Technologist Required: No Accompanied by: Other Relationship Allergies cat dander [CAT DANDER] Allergy (Intermediate, Verified 04/08/23 10:33) skin rash mite-Dermatophagoides farinae, skyla [DUST MITES] Allergy (Intermediate, Verified 04/08/23 10:33) watery itchy eyes, sneezing HPI 3 week follow up wound check HPI Details Very pleasant 77-year-old female presents for follow-up regarding nonhealing ulcers of the left lower extremity. She had undergone microphlebectomy and developed some hypertrophic tissue. It appears to be doing generally fairly well. She reports that the superior of the 3 areas has gone on to heal. She continues to have 2 more or open areas. Family member who was present reports that they have been more cautious about general wound care and made sure that she has these wounds protected and is not picking at them. Now for follow-up. [facility] Medical History Complex renal cyst Constipation due to opioid therapy Dyslipidemia Environmental allergies Essential hypertension Gall stones Hypovitaminosis D Insomnia Left leg pain Lumbar degenerative disc disease Mild major depression Morbid obesity with BMI of 40.0-44.9, adult Neck pain Non-toxic multinodular goiter Obese Renal calculi Right knee pain Shoulder pain, left Tremor of left hand UTI (urinary tract infection) UTI (urinary tract infection) Venous (peripheral) insufficiency Surgical History H/O colonoscopy History of section History of esophagogastroduodenoscopy (EGD) History of left knee replacement History of lithotripsy History of lumpectomy of left breast Hx of biopsy Hx of dilation and curettage Hx of hand surgery Family History Father Medical history unknown Mother Lung cancer Colon cancer Social History Household Members: None Household Members Other:: daughter Housing: Apartment Are you a primary health care technician to a significant other at home: No Do you presently have visiting nurse or other home services: 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) Alcohol intake: never Patient Tobacco Use Status: Never used Tobacco e-Cigarette/Vaping Use: Never Used Second Hand Smoke Exposure: No service: No 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al status: unemployed and disabled 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 Cognitive needs: Yes Hearing needs: No Vision needs: Yes Review of Systems Const All systems reviewed & are unremarkable except as noted in HPI and below Reports no additional complaints ENT Reports Normal hearing present Card Denies chest pain, Denies chest pain at rest, Denies chest pain with activity and Denies pedal edema Resp Denies cough GI Denies abdominal pain Musc Denies abnormal gait, Denies muscle cramps and Denies radiating pain into limb Skin/Breast Denies skin ulcer and Denies wounds Neuro Reports Normal hearing present and Denies abnormal gait Psych Reports no additional complaints Physical Exam Const General: cooperative, healthy appearing and comfortable Orientation/consciousness: oriented to person, oriented to place and oriented to time HEENT Head: Yes normal to inspection Neck Neck: Yes normal visual inspection Carotids: no bruits Chest Chest palpation & inspection: normal inspection of the chest Resp Effort & Inspection: normal respiratory effort and able to speak in complete sentences Auscultation: clear to auscultation bilaterally, no crackles, no rales, no rhonchi and no wheezes Cardio Rate: regular rate Rhythm: regular rhythm Heart sounds: S1 normal heart sound present and S2 normal heart sound present Bruits: no carotid bruits Peripheral pulses: Peripheral pulses 2+ throughout GI Inspection: Yes normal to inspection Skin Other: Left medial thigh wound has healed left proximal calf ulcerations larger more superior 0.4 cm smaller inferior 0.5 cm but flattened Wounds: no wounds Hair: normal Neuro General: oriented to person, oriented to place and oriented to time Cranial nerves: Yes CN's II-XII intact bilaterally and Yes Normal hearing present Cognition (Neuro): normal cognition Motor exam (neuro): 5/5 motor strength present throughout Extrem Other: venous exam: No significant superficial varicosities or spider telangiectasias, minimal edema General: No clubbing, No cyanosis and No edema Psych Appearance: grossly normal Mental Status: mental status grossly normal Speech and movement: Normal speech and movement present Assessment & Plan Assessment & Plan (1) Leg wound, left: Code(s): S81.802A - Unspecified open wound, left lower leg, initial encounter Plan: In short wounds appear to be doing relatively well superior has gone on to heal. They have been treated with silver nitrate once again. We did discussed local wound care. She will follow up with us in approximately 3 weeks time. Thank you for allowing us to assist in her care. If there are any questions or concerns please do not hesitate to contact us. Coding Level of Care Code Est Pt Level 3 (20551) Diagnoses Leg wound, left S81.802A
== END 2023-04-08 10:57 | disposition home or self-care (01) ==
PROVIDERS: PCP Internal Medicine; Visit Provider Surgery Vascular Surgery
DX: S81.802A Unspecified open wound, left lower leg, initial encounter (principal)
CPT/HCPCS: 99213

== ENCOUNTER → 2023-04-08 10:29 | Outpatient (BNVA) | payer OTHER, SELFPAY | PROVIDERS: PCP Internal Medicine; Visit Provider Surgery Vascular Surgery | DX: S81.802D Unspecified open wound, left lower leg, subsequent encounter (principal) | CPT/HCPCS: 99212 ==

== ENCOUNTER 2023-04-15 12:46 | Emergency (ER) | payer OTHER, SELFPAY ==
--- NOTE | 2023-04-15 13:34 | ED.ABDPAIN ---
HPI - Abdominal Pain General Chief Complaint: Abdominal Pain Stated Complaint: l side pain Time Seen by Provider: 04/15/23 15:51 Source: patient and RN notes reviewed Mode of arrival: ambulatory Limitations: no limitations History of Present Illness HPI narrative: This is a 77-year-old female, with past medical history of kidney stones, complex renal cyst, hyperlipidemia, gallstones, nontoxic multi nodule goiter, and venous insufficiency, presenting to the emergency department with complaints of left-sided flank pain x2 weeks worsening since yesterday. Patient reports that she noticed increasing left-sided flank pain without any trauma or injury. Denies any heavy lifting or falls. She states that her pain worsens with positional changes and sitting for prolonged periods of time. She source is urinary frequency, denies dysuria, hematuria, or urinary urgency. Denies fevers, chills, nausea, vomiting or diarrhea. Denies taking any medications at home to treat her current symptoms. She endorses black stool x1 month states that she has had this ever since starting iron supplements. Denies any other complaints or concerns at this time. MD elicited complaint: flank pain Pertinent past history: kidney stones Onset (ago): week(s) Location: none Radiation: none Migration to: no migration Exacerbating factors: nothing Relieving factors: nothing Associated symptoms: denies other symptoms Related Data Home Medications Medication Instructions Recorded Confirmed acetaminophen 325 mg tablet 325 mg PO BID PRN Pain 05/22/20 01/03/23 (Tylenol) fluticasone propionate 50 1 spray intranasal DAILY 05/22/20 01/03/23 mcg/actuation nasal spray,suspension montelukast 10 mg tablet 10 mg PO DAILY 05/22/20 01/03/23 adxlgybwkybm-wqwyrynm-cohebj tablet 1 tab PO DAILY 05/22/20 01/03/23 olopatadine 0.1 % eye drops 1 - 2 drp ophthalmic (eye) BID 05/22/20 01/03/23 omega-3 fatty acids 1,000 mg 1,000 mg PO DAILY 05/22/20 01/03/23 capsule trazodone 150 mg tablet 150 mg PO BEDTIME 05/22/20 01/03/23 epinephrine 0.3 mg/0.3 mL 0.3 ml IM DAILY PRN Allergic 07/17/21 01/03/23 injection, auto-injector Reaction mometasone 0.1 % topical cream 1 appl topical DAILY PRN Rash 07/17/21 01/03/23 sertraline 100 mg tablet 200 mg PO DAILY 10/18/22 01/03/23 Previous Rx's Medication Instructions Recorded walker #1 ea 09/18/20 nystatin 100,000 unit/gram topical 1 appl topical DAILY PRN rash 30 10/11/20 powder days #30 grams albuterol sulfate 90 mcg/actuation 1 - 2 puff PO Q4-6H PRN Shortness 07/31/21 aerosol inhaler Of Breath 30 days #18 grams bisacodyl 10 mg rectal suppository 10 mg AR DAILY PRN constipation 10/05/21 (Dulcolax (bisacodyl)) #20 ea polyethylene glycol 3350 17 17 g PO DAILY Constipation 30 days 03/26/22 gram/dose oral powder #510 grams cetirizine 10 mg tablet 10 mg PO DAILY 30 days #30 tabs 03/29/22 xbdhoiui-ywdouhdwa-syddeeyhn 3.5 4 drp otic (ears) Q8H #10 mL 05/11/22 mg-10,000 unit/mL-1 % ear drops,susp naproxen 500 mg tablet 500 mg PO BID PRN pain 7 days #14 06/17/22 tabs sumatriptan succinate 25 mg tablet 25 mg PO Q2-4H PRN migraine 08/20/22 headache 30 days #9 tabs omeprazole 20 mg capsule,delayed 20 mg PO DAILY 90 days #90 caps 08/25/22 release losartan 100 mg tablet 100 mg PO DAILY 90 days #90 tabs 09/16/22 docusate sodium 100 mg capsule 100 mg PO DAILY PRN for 10/14/22 constipation 90 days #90 caps ferrous sulfate 325 mg (65 mg 325 mg PO BID #60 tabs 12/24/22 iron) tablet (Iron (ferrous sulfate)) atorvastatin 80 mg tablet 80 mg PO BEDTIME 90 days #90 tabs 12/25/22 doxycycline hyclate 100 mg tablet 100 mg PO BID 10 days #20 tabs 12/25/22 amlodipine 5 mg tablet 5 mg PO DAILY 90 days #90 tabs 01/08/23 aspirin 81 mg tablet,delayed 81 mg PO DAILY 90 days #90 tabs 01/08/23 release lactulose 10 gram/15 mL oral 10 g (15 mL) PO DAILY PRN 01/30/23 solution Constipation 90 days #473 mL cholecalciferol (vitamin D3) 25 25 mcg PO DAILY #90 tabs 02/25/23 mcg (1,000 unit) tablet furosemide 40 mg tablet 40 mg PO DAILY 90 days #90 tabs 02/25/23 oxycodone 5 mg tablet 5 mg PO Q8H PRN pain 30 days #90 03/17/23 tabs gabapentin 100 mg capsule 100 mg PO TID 30 days #90 caps 04/07/23 Allergies Allergy/AdvReac Type Severity Reaction Status Date / Time cat dander [CAT DANDER] Allergy Intermediate skin rash Verified 04/08/23 10:33 mite-Dermatophagoides Allergy Intermediate watery Verified 04/08/23 10:33 farinae, skyla itchy [DUST MITES] eyes, sneezing Review of Systems Review of Systems Yes all other systems are reviewed and are negative Constitutional: Reports as per HPI [facility] Past Medical History Medical History Complex renal cyst Constipation due to opioid therapy Dyslipidemia Environmental allergies Essential hypertension Gall stones Hypovitaminosis D Insomnia Left leg pain Lumbar degenerative disc disease Mild major depression Morbid obesity with BMI of 40.0-44.9, adult Neck pain Non-toxic multinodular goiter Obese Renal calculi Right knee pain Shoulder pain, left Tremor of left hand UTI (urinary tract infection) UTI (urinary tract infection) Venous (peripheral) insufficiency Surgical History H/O colonoscopy History of section History of esophagogastroduodenoscopy (EGD) History of left knee replacement History of lithotripsy History of lumpectomy of left breast Hx of biopsy Hx of dilation and curettage Hx of hand surgery Family History Family History Father Medical history unknown Mother Lung cancer Colon cancer Social History Social History Household Members: None Household Members Other:: daughter Housing: Apartment Are you a primary healthcare insurance sales agent to a significant other at home: No Do you presently have visiting nurse or other home services: Yes ([employer]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) Alcohol intake: never Patient Tobacco Use Status: Never used Tobacco e-Cigarette/Vaping Use: Never Used Second Hand Smoke Exposure: No Advance Directives: No Advance Directives Information Provided: No service: No 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al status: unemployed and disabled 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 Cognitive needs: Yes Hearing needs: No Vision needs: Yes Physical Exam ED Vital Signs: Vital Signs - 24 hr 04/15/23 13:36 04/15/23 16:07 Temperature 98.5 F 98.9 F Pulse Rate 72 65 Respiratory Rate 18 18 Blood Pressure 144/89 H 166/72 H Pulse Oximetry 92 96 Oxygen Delivery Method Room Air Room Air BMI result Body Mass Index 37.8 Const General: cooperative, comfortable and no acute distress Orientation/consciousness: patient oriented x3 Limitations: no limitations HENMT Head: Yes normal to inspection, Yes normocephalic and Yes atraumatic Ears: hearing grossly normal bilaterally General nose exam: Normal external nose present Face and sinus: Yes normal facial exam Mouth: Normal oral and palatal mucosa present, oropharynx normal and moist mucous membranes Throat: Yes posterior oropharynx normal Eyes General: appearance normal, both eyes and all related structures Eyelids: Yes eyelids normal Conjunctivae: conjunctivae normal Sclerae: sclerae normal Pupils: Equal, round and reactive pupils present EOM: EOMs intact bilaterally Neck Neck: Yes normal visual inspection, Yes full ROM and Yes no lymphadenopathy Lymphatic: no lymphadenopathy noted Chest Chest palpation & inspection: normal inspection of the chest Resp Effort & Inspection: normal respiratory effort and able to speak in complete sentences Auscultation: clear to auscultation bilaterally, no crackles, no rales, no rhonchi and no wheezes Cardio Rate: regular rate Rhythm: regular rhythm Heart sounds: S1 normal heart sound present and S2 normal heart sound present GI Other: Abdomen is soft, with mild tenderness palpation left upper quadrant. Inspection: Yes normal to inspection Other: Left-sided CVA tenderness to palpation. Skin General skin exam: no rashes or lesions noted Trauma: no lacerations or abrasions Wounds: no wounds Neuro General: patient oriented x3 and moves all extremities Cranial nerves: Yes Equal, round and reactive pupils present Extrem General: Yes normal to inspection Right upper extremity: normal to inspection Left upper extremity: normal to inspection Right lower extremity: normal to inspection Left lower extremity: normal to inspection Course Course Course Narrative: RME: 77-year-old female with a past medical history of osteoarthritis, peripheral insufficiency, depression, HLD, insomnia, HTN presenting to the ED complaining of body aches, left flank/back pain radiating to left abdomen x 2 weeks. denies N/V, fever, urinary sx Labs, UA ordered Full HPI, ROS and PE to be performed by primary ED provider. Medical Decision Making Medical Decision Making [facility] Narrative: 77-year-old female presenting to the emergency department with complaints of left sided flank pain x 2 weeks, worsening over the last day. On arrival, patient mildly hypertensive at 144/89, otherwise patient afebrile. Patient has left-sided CVA tenderness without any overlying rashes. Also with left upper abdominal pain, no rebound or guarding. Normoactive bowel sounds present in all 4 quadrants. Patient has black stool, stool occult negative. Black stool likely due to iron supplements. Differential diagnoses include kidney stone, urinary tract infection, constipation, GI bleed. Labs were obtained on triage, patient has no leukocytosis, normocytic anemia noted with a hemoglobin and hematocrit at 10.9/35.2% respectively, this is at her baseline. Chemistry with normal BUN and creatinine. Stool occult negative. Patient did not provide urine sample. CT abdomen was ordered to rule out kidney stones vs obstructive stone/hydronephrosis. Patient becoming frustrated regarding wait time for CT and providing urine sample and is feeling much better would like to leave prior to receiving CT scan and provide a urine sample. I discussed patient's workup and my concern for an obstructive stone and/or intraabdominal process. Patient states that she would like to leave against medical advice. I discussed all the risks and benefits of staying versus leaving and patient and daughter reports they understand these consequences. Urged the importance of returning if any new or worsening symptoms occur. Patient stable for discharge. Differential Diagnosis Differential Diagnoses: The differential diagnosis associated with the presentation includes See above Admission/Observation Consideration of admission/observation: Escalation of care including admission/observation considered Escalation of care including admission/observation was considered however patient left AMA. Lab Data [facility] Lab Attestation statement: I reviewed the patient's lab results. See above 04/15/23 15:21 04/15/23 15:21 Labs: Lab Results 04/15/23 04/15/23 Range/Units 15:21 16:15 WBC 7.1 (4.8-10.8) X10*3/uL RBC 3.66 L (4.20-5.50) X10*6/uL Hgb 10.9 L (12.0-16.0) g/dl Hct 35.2 L (37.0-47.0) % MCV 96.2 (80.0-98.0) fL MCH 29.8 (27.0-33.0) pg MCHC 31.0 (31.0-35.0) g/dl RDW 13.6 (11.0-16.0) % Plt Count 191 (160-400) X10*3/uL MPV 11.0 (9.4-12.3) fL Immature Gran % (Auto) 0.4 (0.0-0.4) % Neut % (Auto) 69.3 (45-73) % Lymph % (Auto) 20.1 (20-40) % Custer % (Auto) 8.2 (2-11) % Eos % (Auto) 1.3 (0-4) % Baso % (Auto) 0.7 (0-2) % Lymph # (Auto) 1.4 (1.2-4.9) X10*3/uL [place] # (Auto) 0.6 (0.1-1.2) X10*3/uL Eos # (Auto) 0.1 (0.0-0.4) X10*3/uL Baso # (Auto) 0.1 (0.0-0.2) X10*3/uL Abs Immat Gran (auto) 0.03 (0.00-0.03) X10*3/uL Absolute Neuts (auto) 4.9 (2.0-8.3) x10*3/uL Absolute Nucleated RBC 0.000 (0.0-0.012) X10*3/uL Nucleated RBC % (auto) 0.0 (0.0-0.2) /100WBC Sodium 143 (135-145) mmol/L Potassium 4.4 (3.3-5.1) mmol/L Chloride 106 (96-108) mmol/L Carbon Dioxide 32 H (22-29) mmol/L Anion Gap 9 L (12-20) BUN 16 (9-16) mg/dL Creatinine 0.90 (0.5-1.4) mg/dL Estim Creat Clear Calc 54.0 Estimated GFR > 60 Random Glucose 103 (60-115) mg/dL Calcium 9.7 (8.4-10.2) mg/dL Magnesium 2.2 (1.6-2.6) mg/dL Total Bilirubin 0.3 (0.0-1.0) mg/dL Direct Bilirubin 0.1 (0.0-0.5) mg/dL AST 14 (5-31) U/L ALT 8 (0-31) U/L Alkaline Phosphatase 70 (39-117) U/L Total Protein 7.5 (6.5-8.0) g/dL Albumin 4.2 (3.5-5.0) g/dL Lipase 15 (8-78) U/L Stool Occult Blood NEGATIVE (NEGATIVE) Medications Administered Discontinued Medications Generic Name Dose Route Start Last Admin Trade Name Freq PRN Reason Stop Dose Admin Acetaminophen 650 mg 04/15/23 15:04/15/23 15:14 Acetaminophen 325 Mg Tablet PO 04/15/23 15:10 650 mg ONCE ONE Administration Gabapentin 100 mg 04/15/23 15:04/15/23 15:14 Gabapentin 100 Mg Capsule PO 04/15/23 15:10 100 mg ONCE ONE Administration Sertraline HCl 200 mg 04/15/23 15:04/15/23 15:14 Sertraline Hcl 100 Mg Tablet PO 04/15/23 15:10 200 mg ONCE ONE Administration Discharge Plan Discharge Clinical Impression: Acute left flank pain Patient Disposition: Left Against Medical Advice Instructions: Flank Pain (ED) Additional Instructions: You are signing against medical advice as you left prior to obtaining your CT scan and providing a urine sample. It is unclear what is causing you to have these symptoms as you left prior to these important tests from being performed. There are risks of signing out against medical advice such as worsening symptoms like infection and can have serious consequences including . You and your daughter have expressed that you understand these consequences should you leave against medical advice. Please follow up with your primary care physician regarding this visit. If any new or worsening symptoms occur, please return for re-evaluation. Prescriptions: No Action (DME) walker Misc See Rx Instructions .ROUTE .MEDSUPPLY Qty: 1 0RF Rx Instructions: with wheels nystatin 100,000 unit/gram powder 1 appl topical DAILY PRN (Reason: rash) 30 Days Qty: 30 1RF albuterol sulfate 90 mcg/actuation HFA aerosol inhaler 1 - 2 puff PO Q4-6H PRN (Reason: Shortness Of Breath) 30 Days Qty: 18 6RF omeprazole 20 mg capsule,delayed release(DR/EC) 20 mg PO DAILY 90 Days Qty: 90 3RF losartan 100 mg tablet 100 mg PO DAILY 90 Days Qty: 90 1RF docusate sodium 100 mg capsule 100 mg PO DAILY PRN (Reason: for constipation) 90 Days Qty: 90 1RF ferrous sulfate [Iron (ferrous sulfate)] 325 mg (65 mg iron) tablet 325 mg PO BID Qty: 60 3RF aspirin 81 mg tablet,delayed release (DR/EC) 81 mg PO DAILY 90 Days Qty: 90 3RF amlodipine 5 mg tablet 5 mg PO DAILY 90 Days Qty: 90 3RF lactulose 10 gram/15 mL solution 10 g PO DAILY PRN (Reason: Constipation) 90 Days Qty: 473 1RF cholecalciferol (vitamin D3) 25 mcg (1,000 unit) tablet 25 mcg PO DAILY Qty: 90 0RF furosemide 40 mg tablet 40 mg PO DAILY 90 Days Qty: 90 1RF oxycodone 5 mg tablet 5 mg PO Q8H PRN (Reason: pain) 30 Days Qty: 90 0RF Rx Instructions: Partial Fill upon patient request. gabapentin 100 mg capsule 100 mg PO TID 30 Days Qty: 90 3RF naproxen 500 mg tablet 500 mg PO BID PRN (Reason: pain) 7 Days Qty: 14 0RF montelukast 10 mg tablet 10 mg PO DAILY trazodone 150 mg tablet 150 mg PO BEDTIME olopatadine 0.1 % drops 1 - 2 drp ophthalmic (eye) BID fluticasone propionate 50 mcg/actuation spray,suspension 1 spray intranasal DAILY acetaminophen [Tylenol] 325 mg tablet 325 mg PO BID PRN (Reason: Pain) omega-3 fatty acids 1,000 mg capsule 1,000 mg PO DAILY cdpxijfqrrur-wdusadcs-ycwlkh Tablet 1 tab PO DAILY sertraline 100 mg tablet 200 mg PO DAILY Rx Instructions: 1 and 1/2 tabs daily sumatriptan succinate 25 mg tablet 25 mg PO Q2-4H PRN (Reason: migraine headache) 30 Days Qty: 9 1RF Rx Instructions: do not exceed 8 doses per 24 hrs dfburwwe-anotqrbpu-AL 3.5-10,000-1 mg/mL-unit/mL-% drops,suspension 4 drp otic (ears) Q8H Qty: 10 0RF cetirizine 10 mg tablet 10 mg PO DAILY 30 Days Qty: 30 0RF atorvastatin 80 mg tablet 80 mg PO BEDTIME 90 Days Qty: 90 1RF doxycycline hyclate 100 mg tablet 100 mg PO BID 10 Days Qty: 20 0RF epinephrine 0.3 mg/0.3 mL auto-injector 0.3 ml IM DAILY PRN (Reason: Allergic Reaction) mometasone 0.1 % cream 1 appl topical DAILY PRN (Reason: Rash) bisacodyl [Dulcolax (bisacodyl)] 10 mg suppository 10 mg AR DAILY PRN (Reason: constipation) Qty: 20 0RF polyethylene glycol 3350 17 gram/dose powder 17 g PO DAILY 30 Days Qty: 510 6RF
[2023-04-15 13:36] VITALS: BP 144/89; PULSE 72; RESP 18; TEMP 36.9; O2SAT 92; BMI 37.8
[2023-04-15] MEDS: Acetaminophen 325 MG TABLET 650 MG PO (15:14)
[2023-04-15] MEDS: Sertraline HCL 100 MG TABLET 200 MG PO (15:14)
[2023-04-15] MEDS: Gabapentin 100 MG CAPSULE PO (15:14)
[2023-04-15 15:25] LABS: MANUAL DIFF FLAG NO
[2023-04-15 15:30] LABS: Basophils Absolute Auto 0.1 X10*3/uL (0.0-0.2); Basophils Percent Auto 0.7 % (0-2); Eosinophils Absolute Auto 0.1 X10*3/uL (0.0-0.4); Eosinophils Percent Auto 1.3 % (0-4); Hematocrit 35.2 % (37.0-47.0); Hemoglobin 10.9 g/dl (12.0-16.0); Imm Gran Abs Auto 0.03 X10*3/uL (0.00-0.03); Imm Gran Pct Auto 0.4 % (0.0-0.4); Lymphocytes Absolute Auto 1.4 X10*3/uL (1.2-4.9); Lymphocytes Percent Auto 20.1 % (20-40); Mean Corpuscular Hemoglobin 29.8 pg (27.0-33.0); Mean Corpuscular Volume 96.2 fL (80.0-98.0); Monocytes Absolute Auto 0.6 X10*3/uL (0.1-1.2); Monocytes Percent Auto 8.2 % (2-11); Neutrophils Absolute Auto 4.9 x10*3/uL (2.0-8.3); Neutrophils Percent Auto 69.3 % (45-73); Platelet Count 191 X10*3/uL (160-400); Red Blood Count 3.66 X10*6/uL (4.20-5.50); Red Cell Distribution Width 13.6 % (11.0-16.0); White Blood Count 7.1 X10*3/uL (4.8-10.8)
[2023-04-15 15:46] LABS: Alanine Aminotransferase 8 U/L (0-31); Albumin Level 4.2 g/dL (3.5-5.0); Alkaline Phosphatase 70 U/L (39-117); Anion Gap 9 (12-20); Aspartate Amino Transferase 14 U/L (5-31); Bilirubin Direct 0.1 mg/dL (0.0-0.5); Bilirubin Total 0.3 mg/dL (0.0-1.0); Blood Urea Nitrogen 16 mg/dL (9-16); Calcium 9.7 mg/dL (8.4-10.2); Carbon Dioxide 32 mmol/L (22-29); Chloride 106 mmol/L (96-108); Estimated Glomerular Filt Rate > 60; Glucose Random 103 mg/dL (60-115); Lipase 15 U/L (8-78); Magnesium 2.2 mg/dL (1.6-2.6); Potassium 4.4 mmol/L (3.3-5.1); Sodium 143 mmol/L (135-145); Total Protein 7.5 g/dL (6.5-8.0)
[2023-04-15 16:07] VITALS: BP 166/72; PULSE 65; RESP 18; TEMP 37.2; O2SAT 96
[2023-04-15 16:21] LABS: OBS Int Ctl Valid YES; OBS1 NEGATIVE (NEGATIVE)
== END 2023-04-15 17:30 | disposition left against medical advice (07) ==
PROVIDERS: Physician Assistant; Physician Assistant Medical; Emergency Provider Emergency Medicine; PCP Internal Medicine
DX: R10.9 Unspecified abdominal pain (principal); I10 Essential (primary) hypertension; E78.5 Hyperlipidemia, unspecified; Z87.440 Personal history of urinary (tract) infections; Z79.899 Other long term (current) drug therapy; Z79.82 Long term (current) use of aspirin
CPT/HCPCS: 36415; 80048; 80076; 82272; 83690; 83735; 85025; 99283

== ENCOUNTER 2023-05-01 10:47 | Outpatient (AMB) | payer OTHER, SELFPAY ==
--- NOTE | 2023-05-01 10:55 | A.OFFVIS_ITS ---
Intake Vital Signs 05/01/23 10:57 Height 5 ft 2 in Weight 207 lb BMI 37.9 Intake Visit Reasons: 3 week follow up wound check Intake Note: # week fu wound check pt says legs are looking much better but she does still feel alittle bit of pain on left leg Allergies cat dander [CAT DANDER] Allergy (Intermediate, Verified 05/01/23 10:57) skin rash mite-Dermatophagoides farinae, skyla [DUST MITES] Allergy (Intermediate, Verified 05/01/23 10:57) watery itchy eyes, sneezing HPI 3 week follow up wound check HPI Details Very pleasant 77-year-old female presents for follow-up regarding nonhealing ulcers the left lower extremity. She had undergone microphlebectomy and developed some hypertrophic chief use. The superior 1 has gone on to heal she has 2 additional ones which appear to be decreasing in size. She now presents for routine follow-up. She continues with good local wound care and her daughter continues to protect them fairly well. She now presents for fol low-up. [facility] Medical History Complex renal cyst Constipation due to opioid therapy Dyslipidemia Environmental allergies Essential hypertension Gall stones Hypovitaminosis D Insomnia Left leg pain Lumbar degenerative disc disease Mild major depression Morbid obesity with BMI of 40.0-44.9, adult Neck pain Non-toxic multinodular goiter Obese Renal calculi Right knee pain Shoulder pain, left Tremor of left hand UTI (urinary tract infection) UTI (urinary tract infection) Venous (peripheral) insufficiency Surgical History H/O colonoscopy History of section History of esophagogastroduodenoscopy (EGD) History of left knee replacement History of lithotripsy History of lumpectomy of left breast Hx of biopsy Hx of dilation and curettage Hx of hand surgery Family History Father Medical history unknown Mother Lung cancer Colon cancer Social History Household Members: None Household Members Other:: daughter Housing: Apartment Are you a primary transitional care nurse to a significant other at home: No Do you presently have 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) Alcohol intake: never Patient Tobacco Use Status: Never used Tobacco e-Cigarette/Vaping Use: Never Used Second Hand Smoke Exposure: No service: No 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al status: unemployed and disabled 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 Cognitive needs: Yes Hearing needs: No Vision needs: Yes Review of Systems Const All systems reviewed & are unremarkable except as noted in HPI and below Reports no additional complaints ENT Reports Normal hearing present Card Denies chest pain, Denies chest pain at rest, Denies chest pain with activity and Denies pedal edema Resp Denies cough GI Denies abdominal pain Musc Denies abnormal gait, Denies muscle cramps and Denies radiating pain into limb Skin/Breast Denies skin ulcer and Denies wounds Neuro Reports Normal hearing present and Denies abnormal gait Psych Reports no additional complaints Physical Exam Vital Signs: BMI result Body Mass Index 37.9 Const General: cooperative, healthy appearing and comfortable Orientation/consciousness: oriented to person, oriented to place and oriented to time HEENT Head: Yes normal to inspection Neck Neck: Yes normal visual inspection Carotids: no bruits Chest Chest palpation & inspection: normal inspection of the chest Resp Effort & Inspection: normal respiratory effort and able to speak in complete sentences Auscultation: clear to auscultation bilaterally, no crackles, no rales, no rhonchi and no wheezes Cardio Rate: regular rate Rhythm: regular rhythm Heart sounds: S1 normal heart sound present and S2 normal heart sound present Bruits: no carotid bruits Peripheral pulses: Peripheral pulses 2+ throughout GI Inspection: Yes normal to inspection Skin Other: Left medial thigh wound 0.2 cm and 0.4 cm with hypertrophic tissue and appears to be relatively clean Wounds: no wounds Hair: normal Neuro General: oriented to person, oriented to place and oriented to time Cranial nerves: Yes CN's II-XII intact bilaterally and Yes Normal hearing present Cognition (Neuro): normal cognition Motor exam (neuro): 5/5 motor strength present throughout Extrem Other: venous exam: No significant superficial varicosities or spider telangiectasias, minimal edema General: No clubbing, No cyanosis and No edema Psych Appearance: grossly normal Mental Status: mental status grossly normal Speech and movement: Normal speech and movement present Assessment & Plan Assessment & Plan (1) Leg wound, left: Code(s): S81.802A - Unspecified open wound, left lower leg, initial encounter Qualifiers: Encounter type: subsequent encounter Qualified Code(s): S81.802D - Unspecified open wound, left lower leg, subsequent encounter Plan: In short wounds appear to be doing relatively well. There been treated with silver nitrate once again. Will have her follow-up in approximately 4 weeks time. We did discussed local wound care protecting of skin. Thank you for allowing us to assist in her care. Coding Level of Care Code Est Pt Level 3 (96267) Diagnoses Wound of left lower extremity, subsequent encounter S81.802D Encounter type: subsequent encounter
[2023-05-01 10:57] VITALS: BMI 37.9
== END 2023-05-01 11:09 | disposition home or self-care (01) ==
PROVIDERS: PCP Internal Medicine; Visit Provider Surgery Vascular Surgery
DX: S81.802A Unspecified open wound, left lower leg, initial encounter (principal)
CPT/HCPCS: 99213

== ENCOUNTER → 2023-05-01 10:47 | Outpatient (BNVA) | payer OTHER, SELFPAY | PROVIDERS: PCP Internal Medicine; Visit Provider Surgery Vascular Surgery | DX: S81.802D Unspecified open wound, left lower leg, subsequent encounter (principal) | CPT/HCPCS: 99212 ==

== ENCOUNTER 2023-05-08 11:05 | Outpatient (AMB) | payer OTHER, SELFPAY ==
[2023-05-08 11:26] VITALS: BP 130/70; PULSE 64; O2SAT 96; BMI 38.4
--- NOTE | 2023-05-08 11:26 | MHC.PC.OV ---
Vital Signs 05/08/23 11:26 Height 5 ft 2 in Weight 210 lb BMI 38.4 BP 130/70 Blood Pressure Location Lt brachial Position Sitting Pulse 64 Pulse Source Pulse Oximeter Temp Source Skin Pulse Oximetry (%) 96 Oxygen Delivery Method Room Air Intake Visit Reasons: Possible kidney stones/ Ct scan request Allergies cat dander [CAT DANDER] Allergy (Intermediate, Verified 05/08/23 11:39) skin rash mite-Dermatophagoides farinae, skyla [DUST MITES] Allergy (Intermediate, Verified 05/08/23 11:39) watery itchy eyes, sneezing Tobacco use date assessed: 05/08/23 Fall risk assessment: No Falls in past year Last assessed Fall Risk: 05/08/23 HPI HPI Comments History of Present Illness Details 77-year-old female past medical history significant for hypertension, insomnia, lumbar degenerative disc disease, dyslipidemia, renal calculi, depression, invasive ductal carcinoma of left breast. Patient presents today for emergency room follow-up. Patient presented to [facility] Emergency Room 3 weeks ago with left flank pain, given history of renal stone patient was recommended to stay for an abdominal CT scan however patient had been waiting over 6 hours and did not state have test completed. Patient currently follows with Dr. Ocampo for history of nephrolithiasis patient was noted to have a 9 mm nonobstructive calculus imbedded in tissue of right kidney, no hydronephrosis patient was recommended to follow-up with Nephrology in 1 year. Patient continues to report flank pain 8/10 constant patient currently takes oxycodone bid and Tylenol for pain. For which she reports this helps alleviate the pain a little bit. Patient denies fever, chills,reports slight dysuria, denies frequency and hesitancy. UA completed in office shows leukocytes, negative for nitrates and negative for blood. Will send out for culture to rule out urinary tract infection. [facility]LY [facility] Medical History Complex renal cyst Constipation due to opioid therapy Dyslipidemia Environmental allergies Essential hypertension Gall stones Hypovitaminosis D Insomnia Left leg pain Lumbar degenerative disc disease Mild major depression Morbid obesity with BMI of 40.0-44.9, adult Neck pain Non-toxic multinodular goiter Obese Renal calculi Right knee pain Shoulder pain, left Tremor of left hand UTI (urinary tract infection) UTI (urinary tract infection) Venous (peripheral) insufficiency Surgical History H/O colonoscopy History of section History of esophagogastroduodenoscopy (EGD) History of left knee replacement History of lithotripsy History of lumpectomy of left breast Hx of biopsy Hx of dilation and curettage Hx of hand surgery Family History Father Medical history unknown Mother Lung cancer Colon cancer Social History Household Members: None Household Members Other:: daughter Housing: Apartment Are you a primary specialist wound care to a significant other at home: No Do you presently have visiting nurse or other home services: Yes ([employer]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) Alcohol intake: never Patient Tobacco Use Status: Never used Tobacco e-Cigarette/Vaping Use: Never Used Second Hand Smoke Exposure: No service: No 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al status: unemployed and disabled 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 Cognitive needs: Yes Hearing needs: No Vision needs: Yes Questionnaire Thrive Questionnaire Date Thrive assessed: 08/20/22 AUDIT C Alcohol Use Questionnaire (AUDIT-C) 1. How often do you have a drink containing alcohol?: Never Total Score: 0 SHAMIR-7 AMB Questionnaire SHAMIR-7 Date SHAMIR - 7 assessed: 08/20/22 Source: Developed by Drs. Vishal Gonsales, Dione Horn, Eduar Steel and colleagues, with an educational josé miguel from [employer]. Review of Systems Const Denies chills, Denies fatigue, Denies fever(s) and Denies poor appetite Eyes Denies no additional complaints ENT Reports Normal hearing present Card Denies chest pain, Denies syncope, Denies rapid heart rate and Denies dyspnea Resp Denies cough and Denies dyspnea GI Denies change in stool character, Denies constipation, Denies diarrhea, Denies nausea and Denies vomiting Denies urinary frequency, Denies dysuria, Denies urinary urgency and Reports other (left flank pain ) Neuro Reports Normal hearing present, Denies confusion and Denies syncope Psych Denies confusion Endo Denies fatigue Physical exam (Primary Care) Vital Signs: Last Vital Signs Pulse 64 05/08/23 11:26 BP 130/70 05/08/23 11:26 Pulse Ox 96 05/08/23 11:26 Oxygen Delivery Method Room Air 05/08/23 11:26 BMI result Body Mass Index 38.4 Tobacco/Smoking Status: Tobacco use Status Tobacco use date assessed 05/08/23 05/08/23 11:42 Patient Tobacco Use Status Never used Tobacco 05/08/23 11:30 e-Cigarette/Vaping Use Never Used 05/08/23 11:30 Thrive Assessment: Date of Thrive Assessment Date Thrive assessed 08/20/22 05/08/23 11:30 Const General: No confusion Orientation/consciousness: No confusion HENMT Head: Yes normocephalic and Yes atraumatic Eyes Conjunctivae: conjunctivae normal Chest Chest palpation & inspection: normal inspection of the chest Resp Effort & Inspection: normal respiratory effort Auscultation: clear to auscultation bilaterally, no crackles, no rhonchi and no wheezes Cardio Rate: regular rate Rhythm: regular rhythm Heart sounds: S1 normal heart sound present and S2 normal heart sound present GI Inspection: Yes normal to inspection General: Yes CVA tenderness (left > Right ) Back/Spine/Pelvis Back: CVA tenderness (left > Right ) Neuro General: No confusion Cranial nerves: Yes Normal hearing present Extrem General: No edema Office Procedures Flu Questionnaire Does the patient have a severe egg allergy?: No Does the patient have severe life threatening allergies?: No Does the patient have a fever or illness today?: No Has the patient ever had Guillain-[place] Syndrome?: No Has the patient ever had any past reaction to a flu shot?: No Results AMB Urinalysis, Automated UA Leukoctes 15 Sarina/uL Last Edit by CHERELLE Pleitez on 05/08/23 11:46 UA Nitrite Negative Last Edit by CHERELLE Pleitez on 05/08/23 11:46 UA Urobilinogen 0.2 mg/dL Last Edit by CHERELLE Pleitez on 05/08/23 11:46 UA Protein 0 mg/dL Last Edit by CHERELLE Pleitez on 05/08/23 11:46 UA pH 6.0 Last Edit by CHERELLE Pleitez on 05/08/23 11:46 UA Blood 0 Ministerio/uL Last Edit by CHERELLE Pleitez on 05/08/23 11:46 UA Specific [place] 1.020 Last Edit by CHERELLE Pleitez on 05/08/23 11:46 UA Ketone Negative Last Edit by CHERELLE Pleitez on 05/08/23 11:46 UA Bilirubin 0 mg/dL Last Edit by CHERELLE Pleitez on 05/08/23 11:46 UA Glucose 0 mg/dL Last Edit by CHERELLE Pleitez on 05/08/23 11:46 Immunizations flu vacc [id number] 6mos up(PF) 60 mcg(15 mcgx4)/0.5 mL IM syringe Performing Provider: SHARIFA Otto Performing Location: [facility] Administered by: CHERELLE Pleitez on 05/08/23 11:56 Dose Route Admin Location Dispensed Lot Number Expiration Date NDC Triple Valve Tester 0.5 mL IM Left Deltoid 0.5 mL [id number] 02/01/24 20524-104-35 [employer] VIS Given Date VIS Provided VIS Publication Date 05/08/23 Single Vaccine 21 Eligibility Eligibility Date Funding Source Not [facility] Eligible 05/08/23 Private Results Reviewed Results Reviewed: Laboratory Last Values Urine pH (Auto) 6.0 05/08/23 11:30 Specific [place] (Auto) 1.020 05/08/23 11:30 Urine Protein (Auto) 0 mg/dL 05/08/23 11:30 Glucose (UA)(Auto) 0 mg/dL 05/08/23 11:30 Urine Ketones (Auto) Negative 05/08/23 11:30 Urine Blood (Auto) 0 Ministerio/uL 05/08/23 11:30 Urine Nitrite (Auto) Negative 05/08/23 11:30 Urine Bilirubin (Auto) 0 mg/dL 05/08/23 11:30 Urine Urobilinogen (Auto) 0.2 mg/dL 05/08/23 11:30 Leukocyte Esterase (Auto) 15 Sarina/uL 05/08/23 11:30 Assessment and Plan Assessment & Plan (1) Renal calculi: Comment: 12/22 ESWL Right side 9mm - tissue imbedded Code(s): N20.0 - Calculus of kidney Plan: Abdominal/Pelvis CT ordered urgently to further evaluate. Patient advised to increase water intake and continue taking her oxycodone and Tylenol prn for pain. Continue to follow with Dr. Ocampo urology. (2) Left flank pain: Code(s): R10.9 - Unspecified abdominal pain Plan Keep scheduled follow up with pcp or follow up sooner if needed. Orders: Orders AMB Urinalysis Automated Today M54.50 - Low back pain, unspecified Influenza [id number] Immunization Today Z23 - Encounter for immunization CT abdomen pelvis wo IV con Today N20.0 - Calculus of kidney, R10.9 - Unspecified abdominal pain Coding Level of Care Code Est Pt Level 3 (49376) Diagnoses Renal calculi N20.0 Left flank pain R10.9
== END 2023-05-08 12:03 | disposition home or self-care (01) ==
PROVIDERS: PCP Internal Medicine; Visit Provider Nurse Practitioner Family
DX: N20.0 Calculus of kidney (principal); R10.9 Unspecified abdominal pain; M54.50 Low back pain, unspecified; Z23 Encounter for immunization; Z85.3 Personal history of malignant neoplasm of breast
CPT/HCPCS: 81003; 90471; 90686; 99213

== ENCOUNTER 2023-05-08 12:56 | Outpatient (REF) | payer OTHER, SELFPAY | END 2023-05-08 12:57 | disposition home or self-care (01) | LOC: HO.LAB 12:56 | PROVIDERS: Visit Provider Nurse Practitioner Family | DX: R30.0 Dysuria (principal); M54.50 Low back pain, unspecified | CPT/HCPCS: 87086 ==

== ENCOUNTER 2023-05-13 10:44 | Outpatient (AMB) | payer OTHER, SELFPAY ==
--- NOTE | 2023-05-13 10:49 | MHC.OFFVIS ---
Intake Intake Visit Reasons: Leg pain Intake Note: Pt was originally scheduled for a 1 month wound check but she called in stating that she is having issues with her right leg witch include swelling pain and that she had a small lump that dr warren already seen but is getting worst .She states its hard and its growing also painful to the touch Inventory Control Assistant Required: Yes Inventory Control Assistant Name: kalpesh benson Information Interpreted: clinical only Accompanied by: Daughter Allergies cat dander [CAT DANDER] Allergy (Intermediate, Verified 05/13/23 10:52) skin rash mite-Dermatophagoides farinae, skyla [DUST MITES] Allergy (Intermediate, Verified 05/13/23 10:52) watery itchy eyes, sneezing HPI Leg pain HPI Details Very pleasant 77-year-old female presents for follow-up regarding nonhealing left lower extremity ulcers. She had originally undergone on 05/17/2022 left great saphenous vein Cyanoacralate ablation. She has had issues with that since. She has developed some blistering and hypertrophic tissue which has been treated with silver nitrate. In she most recently has developed this large left mid thigh hematoma. It has been a source of pain and discomfort for. She now presents for follow-up evaluation. [facility]LY [facility] Medical History Complex renal cyst Constipation due to opioid therapy Dyslipidemia Environmental allergies Essential hypertension Gall stones Hypovitaminosis D Insomnia Left leg pain Lumbar degenerative disc disease Mild major depression Morbid obesity with BMI of 40.0-44.9, adult Neck pain Non-toxic multinodular goiter Obese Renal calculi Right knee pain Shoulder pain, left Tremor of left hand UTI (urinary tract infection) UTI (urinary tract infection) Venous (peripheral) insufficiency Surgical History Hx of biopsy H/O colonoscopy Hx of dilation and curettage History of esophagogastroduodenoscopy (EGD) Hx of hand surgery History of lumpectomy of left breast History of lithotripsy History of left knee replacement History of section Family History Father Medical history unknown Mother Lung cancer Colon cancer Social History Household Members: None Household Members Other:: daughter Housing: Apartment Are you a primary adult caregiver to a significant other at home: No Do you presently have visiting nurse or other home services: Yes ([employer]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) Alcohol intake: never Patient Tobacco Use Status: Never used Tobacco e-Cigarette/Vaping Use: Never Used Second Hand Smoke Exposure: No service: No 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al status: unemployed and disabled 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 Cognitive needs: Yes Hearing needs: No Vision needs: Yes Review of Systems Const All systems reviewed & are unremarkable except as noted in HPI and below Reports no additional complaints ENT Reports Normal hearing present Card Denies chest pain, Denies chest pain at rest, Denies chest pain with activity and Denies pedal edema Resp Denies cough GI Denies abdominal pain Musc Denies abnormal gait, Denies muscle cramps and Denies radiating pain into limb Skin/Breast Denies skin ulcer and Denies wounds Neuro Reports Normal hearing present and Denies abnormal gait Psych Reports no additional complaints Physical Exam Const General: cooperative, healthy appearing and comfortable Orientation/consciousness: oriented to person, oriented to place and oriented to time HEENT Head: Yes normal to inspection Neck Neck: Yes normal visual inspection Carotids: no bruits Chest Chest palpation & inspection: normal inspection of the chest Resp Effort & Inspection: normal respiratory effort and able to speak in complete sentences Auscultation: clear to auscultation bilaterally, no crackles, no rales, no rhonchi and no wheezes Cardio Rate: regular rate Rhythm: regular rhythm Heart sounds: S1 normal heart sound present and S2 normal heart sound present Bruits: no carotid bruits Peripheral pulses: Peripheral pulses 2+ throughout GI Inspection: Yes normal to inspection Skin Other: Left medial thigh hematoma approximately 11 cm in diameter. In addition 3 punctate lesions of which 2 appear to be nearly healed the inferior 1 appears to be 0.2 cm in diameter. Wounds: no wounds Hair: normal Neuro General: oriented to person, oriented to place and oriented to time Cranial nerves: Yes CN's II-XII intact bilaterally and Yes Normal hearing present Cognition (Neuro): normal cognition Motor exam (neuro): 5/5 motor strength present throughout Extrem Other: venous exam: No significant superficial varicosities or spider telangiectasias, minimal edema General: No clubbing, No cyanosis and No edema Psych Appearance: grossly normal Mental Status: mental status grossly normal Speech and movement: Normal speech and movement present Assessment & Plan Assessment & Plan (1) Varicose veins of right lower extremity with inflammation: Comment: 04/12/2022 - right great saphenous vein Cyanoacralate ablation Code(s): I83.11 - Varicose veins of right lower extremity with inflammation (2) Varicose veins of left lower extremity with inflammation: Comment: 05/07/2022 - left great saphenous vein Cyanoacralate ablation 01/17/2023 - left leg microphlebectomy Code(s): I83.12 - Varicose veins of left lower extremity with inflammation Plan: In short it has been nearly a year since the initial procedure. Unclear why she is having difficulty with this left thigh. We did discuss conservative measures including compression elevation. In addition we did discuss use of warm compresses. The patient will follow up with us in approximately 2 weeks to ensure that this continues to improve. Thank you for allowing us to assist in her care. If there are questions or concerns please do not hesitate to contact us Coding Level of Care Code Est Pt Level 3 (40348) Diagnoses Varicose veins of right lower extremity with inflammation I83.11 Varicose veins of left lower extremity with inflammation I83.12
== END 2023-05-13 11:45 | disposition home or self-care (01) ==
PROVIDERS: PCP Internal Medicine; Visit Provider Surgery Vascular Surgery
DX: I83.11 Varicose veins of right lower extremity with inflammation (principal); I83.12 Varicose veins of left lower extremity with inflammation
CPT/HCPCS: 99213

== ENCOUNTER → 2023-05-13 10:44 | Outpatient (BNVA) | payer OTHER, SELFPAY | PROVIDERS: PCP Internal Medicine; Visit Provider Surgery Vascular Surgery | DX: I83.11 Varicose veins of right lower extremity with inflammation (principal); I83.12 Varicose veins of left lower extremity with inflammation | CPT/HCPCS: 99212 ==

== ENCOUNTER 2023-05-15 10:38 | Outpatient (AMB) | payer OTHER, SELFPAY ==
[2023-05-15 10:45] VITALS: BP 140/88; PULSE 79; O2SAT 99; BMI 37.7
--- NOTE | 2023-05-15 10:45 | MHC.PC.OV ---
Vital Signs 05/15/23 10:45 Height 5 ft 2 in Weight 206 lb BMI 37.7 BP 140/88 H Blood Pressure Location Lt brachial Position Sitting Pulse 79 Pulse Source Pulse Oximeter Temp Source Skin Pulse Oximetry (%) 99 Oxygen Delivery Method Room Air Intake Visit Reasons: Annual Physical Intake Note: Patient is here today for a physical. 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: No Allergies cat dander [CAT DANDER] Allergy (Intermediate, Verified 05/15/23 11:45) skin rash mite-Dermatophagoides farinae, skyla [DUST MITES] Allergy (Intermediate, Verified 05/15/23 11:45) watery itchy eyes, sneezing Medication List - Last Reconciled 05/15/23 by SHARIFA Otto acetaminophen (Tylenol) 325 mg PO BID PRN albuterol sulfate 90 mcg/actuation 1 - 2 puffs PO Q4-6H PRN 30 days amlodipine 5 mg PO DAILY 90 days aspirin 81 mg PO DAILY 90 days atorvastatin 80 mg PO BEDTIME 90 days bisacodyl (Dulcolax (bisacodyl)) 10 mg DC DAILY PRN cetirizine 10 mg PO DAILY 30 days cholecalciferol (vitamin D3) 25 mcg PO DAILY docusate sodium 100 mg PO DAILY PRN 90 days doxycycline hyclate 100 mg PO BID epinephrine 0.3 mL IM DAILY PRN ferrous sulfate (Iron (ferrous sulfate)) 325 mg PO BID fluticasone propionate 50 mcg/actuation 1 spray intranasal DAILY furosemide 40 mg PO DAILY 90 days gabapentin 100 mg PO TID 30 days lactulose 10 grams (15 mL) PO DAILY PRN 90 days losartan 100 mg PO DAILY 90 days mometasone 0.1% 1 appl topical DAILY PRN montelukast 10 mg PO DAILY iidywkanzjuy-wapptcix-iwsryi 1 tab PO DAILY naproxen 500 mg PO BID PRN 7 days jazlxswe-gdlpzbdhv-SB 3.5-10,000-1 mg/mL-unit/mL-% 4 drps otic (ears) Q8H nystatin 1 appl topical DAILY PRN 30 days olopatadine 0.1% 1 - 2 drps ophthalmic (eye) BID omega-3 fatty acids 1,000 mg PO DAILY omeprazole 20 mg PO DAILY 90 days oxycodone 5 mg PO Q8H PRN 30 days polyethylene glycol 3350 17 grams PO DAILY 30 days sertraline 200 mg PO DAILY sumatriptan succinate 25 mg PO Q2-4H PRN 30 days trazodone 150 mg PO BEDTIME walker with wheels Tobacco use date assessed: 05/15/23 Fall risk assessment: No Falls in past year Last assessed Fall Risk: 05/15/23 Dental Screening Dental Screen Date: 05/15/23 (dentures ) Did you have a dental visit in the last 12 months?: Yes Did you have a dental problem in the last 6 months where you did not have access to dental care?: No Was dental information given to patient?: Patient has dentist HPI HPI Comments History of Present Illness Details 77-year-old female past medical history significant for hypertension, insomnia lumbar disc disease, depression, invasive ductal carcinoma left breast. Patient presents today for physical exam. Patient presents today with daughter who assists in interpretation. 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 Patient recently underwent left great saphenous vein ablation with Dr. Giron. Patient reports left anterior thigh pain, erythema and edema. Patient's daughter reports he did show vascular surgery and was told it was likely related to possible cellulitis. Patient denies any calf cramping or pain with ambulation. Mammogram: October 2022,Benign Colonoscopy screenin, hx tubular adenoma goes every 3 years. Eye exam: April 2023 Given patients age paps no longer recommended. Flu shot received this season [facility] Medical History Complex renal cyst Constipation due to opioid therapy Dyslipidemia Environmental allergies Essential hypertension Gall stones Hypovitaminosis D Insomnia Left leg pain Lumbar degenerative disc disease Mild major depression Morbid obesity with BMI of 40.0-44.9, adult Neck pain Non-toxic multinodular goiter Obese Renal calculi Right knee pain Shoulder pain, left Tremor of left hand UTI (urinary tract infection) UTI (urinary tract infection) Venous (peripheral) insufficiency Surgical History Hx of biopsy H/O colonoscopy Hx of dilation and curettage History of esophagogastroduodenoscopy (EGD) Hx of hand surgery History of lumpectomy of left breast History of lithotripsy History of left knee replacement History of section Family History Father Medical history unknown Mother Lung cancer Colon cancer Social History Household Members: None Household Members Other:: daughter Housing: Apartment Are you a primary district manager primary care sales to a significant other at home: No Do you presently have visiting nurse or other home services: Yes (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 1. Little interest or pleasure in doing things: not at all 2. Feeling down, depressed, or hopeless: not at all 3. Trouble falling or staying asleep, or sleeping too much: not at all 4. Feeling tired or having little energy: not at all 5. Poor appetite or overeating: not at all 6. Feeling bad about yourself - or that you are a failure or have let yourself or your family down: not at all 7. Trouble concentrating on things, such as reading the newspaper or watching television: not at all 8. Moving or speaking so slowly that other people could have noticed. Or the opposite - being so fidgety or restless that you have been moving around a lot more than usual: not at all 9. Thoughts that you would be better off or of hurting yourself in some way: not at all Total score: 0 Depression Screening Interpretation: Positive Depression Screening Follow-up: Existing condition and In treatment Depression Screening Done: Yes 90860 - PHQ-9 Billing: Yes Source: Developed by Drs. Vishal Gonsales, Dione Horn, Eduar Steel and colleagues, with an educational josé miguel from [employer]. Thrive Questionnaire Date Thrive assessed: 08/20/22 AUDIT C Alcohol Use Questionnaire (AUDIT-C) 1. How often do you have a drink containing alcohol?: Never Total Score: 0 SHAMIR-7 AMB Questionnaire SHAMIR-7 Date SHAMIR - 7 assessed: 08/20/22 Feeling nervous, anxious, or on edge: 0 = Not at all Not being able to stop or control worryin = Not at all Worrying too much about different things: 0 = Not at all Trouble relaxin = Not at all Being so restless that it is hard to sit still: 0 = Not at all Becoming easily annoyed or irritable: 0 = Not at all Feeling afraid as if something awful might happen: 0 = Not at all Total SHAMIR-7 score (0-4 normal; 5-9 mild; 10-14 moderate; 15-21 severe): 0 Source: Developed by Drs. Vishal Gonsales, Dione Horn, Eduar Steel and colleagues, with an educational josé miguel from [employer]. Review of Systems Const Denies chills, Denies fatigue, Denies fever(s) and Denies poor appetite Eyes Denies no additional complaints ENT Reports Normal hearing present Card Denies chest pain, Denies syncope, Denies rapid heart rate and Denies dyspnea Resp Denies cough and Denies dyspnea GI Denies change in stool character, Denies constipation, Denies diarrhea, Denies nausea and Denies vomiting Denies urinary frequency, Denies dysuria and Denies urinary urgency Skin/Breast Reports other (Left posterior thigh swelling, redness and tenderness) Neuro Reports Normal hearing present, Denies confusion and Denies syncope Psych Denies confusion Endo Denies fatigue Physical exam (Primary Care) Vital Signs: Last Vital Signs Pulse 79 05/15/23 10:45 BP 140/88 H 05/15/23 10:45 Pulse Ox 99 05/15/23 10:45 Oxygen Delivery Method Room Air 05/15/23 10:45 BMI result Body Mass Index 37.7 Tobacco/Smoking Status: Tobacco use Status Tobacco use date assessed 05/15/23 05/15/23 10:46 Patient Tobacco Use Status Never used Tobacco 05/15/23 10:46 e-Cigarette/Vaping Use Never Used 05/15/23 10:46 PHQ-9: PHQ-9 Score PHQ-9: Total score 0 05/15/23 11:11 Depression Screening Interpretation: Positive Depression Screening Follow-up: Existing condition and In treatment Thrive Assessment: Date of Thrive Assessment Date Thrive assessed 08/20/22 05/15/23 10:46 Const General: No confusion Orientation/consciousness: No confusion HENMT Head: Yes normocephalic and Yes atraumatic Ears: external ears normal and TM's normal bilaterally General nose exam: Normal external nose present and Normal nasal mucous membranes and turbinates present Face and sinus: Yes normal facial exam and Yes sinuses nontender Mouth: moist mucous membranes Throat: Yes tonsils normal Eyes Conjunctivae: conjunctivae normal Sclerae: sclerae normal Pupils: Equal, round and reactive pupils present and Pupils normal by confrontation EOM: EOMs intact bilaterally Direct Ophthalmoscopy: normal light reflex Neck Neck: Yes no lymphadenopathy and Yes supple Thyroid: Thyroid normal Chest Chest palpation & inspection: normal inspection of the chest Resp Effort & Inspection: normal respiratory effort Auscultation: clear to auscultation bilaterally, no crackles, no rhonchi and no wheezes Cardio Rate: regular rate Rhythm: regular rhythm Peripheral pulses: radial pulses present and dorsalis pedis present GI Inspection: Yes normal to inspection Palpation (GI): Soft to palpation, nontender and No hepatosplenomegaly present Auscultation: normoactive bowel sounds Skin General skin exam: no rashes or lesions noted Full body images: 1. approx. 3cmx 2cm; firm area of erythema, warm to touch and tender on palpation. Neuro General: No confusion Cranial nerves: Yes Equal, round and reactive pupils present and Yes Normal hearing present Cognition (Neuro): normal cognition Gait exam (Neuro): Other gait observations present (Ambulates with a cane) Deep tendon reflexes (DTR's): Right brachioradialis reflex intensity grade: 2+, Left brachioradialis reflex intensity grade: 2+, Right patellar reflex intensity grade: 2+ and Left patellar reflex intensity grade: 2+ Extrem General: No edema Assessment and Plan Assessment & Plan (1) DVT (deep venous thrombosis): Code(s): I82.409 - Acute embolism and thrombosis of unspecified deep veins of unspecified lower extremity Plan: Given patient has edema, erythema and warmth Stat ultrasound ordered to rule out left lower extremity DVT and will cover patient for left posterior thigh cellulitis. Patient advised to continue to follow with vascular surgery for history of phlebitis status post left great saphenous vein and lesion. (2) Left leg cellulitis: Code(s): L03.116 - Cellulitis of left lower limb Plan: Doxycycline b.i.d. times 10 days sent to patient's pharmacy. (3) Essential hypertension: Code(s): I10 - Essential (primary) hypertension Plan: Continue on amlodipine 5 mg daily. Follow low-salt diet and exercise. Blood pressure goal less 140/90. (4) Dyslipidemia: Code(s): E78.5 - Hyperlipidemia, unspecified Plan: Continue on atorvastatin 80 mg daily. Fasting lipid panel ordered. (5) Physical exam, annual: Code(s): Z00.00 - Encounter for general adult medical examination without abnormal findings Plan: Follow-up 1 year. Orders: Orders venous duplex LE LT Today I82.402 - Acute embolism and thrombosis of unspecified deep veins of left lower extremity Medications: New doxycycline hyclate 100 mg PO BID 20 caps 0RF L03.116 - Cellulitis of left lower limb Refilled lactulose 10 grams (15 mL) PO DAILY PRN 473 mL 1RF Constipation 90 days polyethylene glycol 3350 17 grams PO DAILY 510 grams 6RF Constipation 30 days Coding Level of Care Code Est Pt Prev Care >65y(29452) Diagnoses DVT (deep venous thrombosis) I82.409 Left leg cellulitis L03.116 Essential hypertension I10 Dyslipidemia E78.5 Physical exam, annual Z00.00
== END 2023-05-15 11:30 | disposition home or self-care (01) ==
PROVIDERS: PCP Internal Medicine; Visit Provider Nurse Practitioner Family
DX: Z00.00 Encounter for general adult medical examination without abnormal findings (principal); I82.409 Acute embolism and thrombosis of unspecified deep veins of unspecified lower extremity; L03.116 Cellulitis of left lower limb; I10 Essential (primary) hypertension; E78.5 Hyperlipidemia, unspecified; Z90.12 Acquired absence of left breast and nipple
CPT/HCPCS: 99397

== ENCOUNTER 2023-05-15 11:47 | Outpatient (REF) | payer OTHER, SELFPAY ==
--- NOTE | ~2023-05-15 | US_ITS ---
EXAMINATION: US VENOUS ULTRASOUND WITH DOPPLER LOWER EXTREMITY, LEFT CLINICAL INFORMATION: Left anterior thigh pain. COMPARISON: 05/24/2022 TECHNIQUE: Ultrasound of the deep veins is performed from the hip to the calf with compression sonography and color and pulse Doppler assessment. Spectral analysis with color-flow imaging is performed. FINDINGS: There is normal venous compression and respiratory variation and augmented flow. The visualized common femoral vein, superficial femoral vein, profunda femoral vein, popliteal vein, and the trifurcation region shows no evidence of deep venous thrombosis. If the patient's symptoms persist, followup ultrasound in 5 days 7 days might be of value to exclude proximal propagation from a non-visualized calf vein. US/US venous duplex LE LT IMPRESSION: No DVT demonstrated in the left lower extremity.
== END 2023-05-15 11:48 | disposition home or self-care (01) ==
LOC: HO.US 11:47
PROVIDERS: PCP Internal Medicine; Visit Provider Nurse Practitioner Family
DX: I82.402 Acute embolism and thrombosis of unspecified deep veins of left lower extremity (principal)
CPT/HCPCS: 93971

== ENCOUNTER 2023-05-29 11:00 | Outpatient (AMB) | payer OTHER, SELFPAY ==
--- NOTE | 2023-05-29 11:05 | A.OFFVIS_ITS ---
Intake Intake Visit Reasons: 1 month follow up wound check Intake Note: pt here for one month wound check says she is starting to get pain and blisters on the back of her left knee Accompanied by: Daughter Allergies cat dander [CAT DANDER] Allergy (Intermediate, Verified 05/29/23 11:06) skin rash mite-Dermatophagoides farinae, skyla [DUST MITES] Allergy (Intermediate, Verified 05/29/23 11:06) watery itchy eyes, sneezing HPI 1 month follow up wound check HPI Details Very pleasant 77-year-old female presents for follow-up regarding nonhealing or ulcers of the left lower extremity. The once in the calf has gone on to heal she has this large left medial thigh and lump. She has developed a new ulcer in blister on this area. There is a hardened area underneath that. She now presents for follow-up. [facility] Medical History Shoulder pain, left Environmental allergies Left leg pain Venous (peripheral) insufficiency Complex renal cyst Morbid obesity with BMI of 40.0-44.9, adult UTI (urinary tract infection) Gall stones Mild major depression Obese Neck pain Dyslipidemia Right knee pain Tremor of left hand Non-toxic multinodular goiter UTI (urinary tract infection) Lumbar degenerative disc disease Hypovitaminosis D Renal calculi Insomnia Constipation due to opioid therapy Essential hypertension Surgical History Hx of biopsy H/O colonoscopy Hx of dilation and curettage History of esophagogastroduodenoscopy (EGD) Hx of hand surgery History of lumpectomy of left breast History of lithotripsy History of left knee replacement History of section Family History Father Medical history unknown Mother Lung cancer Colon cancer Social History Household Members: None Household Members Other:: daughter Housing: Apartment Are you a primary child care specialist to a significant other at home: No Do you presently have visiting nurse or other home services: Yes (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) Alcohol intake: never Patient Tobacco Use Status: Never used Tobacco e-Cigarette/Vaping Use: Never Used Second Hand Smoke Exposure: No service: No 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al status: unemployed and disabled 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 Cognitive needs: Yes Hearing needs: No Vision needs: Yes Review of Systems Const All systems reviewed & are unremarkable except as noted in HPI and below Reports no additional complaints ENT Reports Normal hearing present Card Denies chest pain, Denies chest pain at rest, Denies chest pain with activity and Denies pedal edema Resp Denies cough GI Denies abdominal pain Musc Denies abnormal gait, Denies muscle cramps and Denies radiating pain into limb Skin/Breast Denies skin ulcer and Denies wounds Neuro Reports Normal hearing present and Denies abnormal gait Psych Reports no additional complaints Physical Exam Const General: cooperative, healthy appearing and comfortable Orientation/consciousness: oriented to person, oriented to place and oriented to time HEENT Head: Yes normal to inspection Neck Neck: Yes normal visual inspection Carotids: no bruits Chest Chest palpation & inspection: normal inspection of the chest Resp Effort & Inspection: normal respiratory effort and able to speak in complete sentences Auscultation: clear to auscultation bilaterally, no crackles, no rales, no rhonchi and no wheezes Cardio Rate: regular rate Rhythm: regular rhythm Heart sounds: S1 normal heart sound present and S2 normal heart sound present Bruits: no carotid bruits Peripheral pulses: Peripheral pulses 2+ throughout GI Inspection: Yes normal to inspection Skin Other: Medial thigh 0.2 cm ulcer with harden indurated area underlying the skin Wounds: no wounds Hair: normal Neuro General: oriented to person, oriented to place and oriented to time Cranial nerves: Yes CN's II-XII intact bilaterally and Yes Normal hearing present Cognition (Neuro): normal cognition Motor exam (neuro): 5/5 motor strength present throughout Extrem Other: venous exam: No significant superficial varicosities or spider telangiectasias, minimal edema General: No clubbing, No cyanosis and No edema Psych Appearance: grossly normal Mental Status: mental status grossly normal Speech and movement: Normal speech and movement present Assessment & Plan Assessment & Plan (1) Varicose veins of left lower extremity with inflammation: Comment: 05/07/2022 - left great saphenous vein Cyanoacralate ablation 01/17/2023 - left leg microphlebectomy Code(s): I83.12 - Varicose veins of left lower extremity with inflammation Plan: In short patient has a hardened thigh area with induration. Unclear what the etiology of this is we are over a year out since her ablation. Will plan for Medrol Dosepak if that does not resolve this it issue I do think that she may require excision of this area in order to have it heal. She will follow up with us in approximately 2 weeks time. Thank you for allowing us to assist in her care. If there are any questions or concerns please do not hesitate to contact us. Medications: New methylprednisolone (Medrol (Josh)) PO PER PKG DIR 21 ea 0RF I83.12 - Varicose veins of left lower extremity with inflammation Coding Level of Care Code Est Pt Level 4 (97532) Diagnoses Varicose veins of left lower extremity with inflammation I83.12
== END 2023-05-29 11:23 | disposition home or self-care (01) ==
PROVIDERS: PCP Internal Medicine; Visit Provider Surgery Vascular Surgery
DX: I83.12 Varicose veins of left lower extremity with inflammation (principal)
CPT/HCPCS: 99214

== ENCOUNTER → 2023-05-29 11:00 | Outpatient (BNVA) | payer OTHER, SELFPAY | PROVIDERS: PCP Internal Medicine; Visit Provider Surgery Vascular Surgery | DX: I83.12 Varicose veins of left lower extremity with inflammation (principal) | CPT/HCPCS: 99212 ==

== ENCOUNTER 2023-06-09 09:53 | Outpatient (AMB) | payer OTHER, SELFPAY ==
[2023-06-09 09:58] VITALS: BP 140/88; PULSE 76; O2SAT 95; BMI 38.5
--- NOTE | 2023-06-09 09:58 | A.OFFPC_ITS ---
Vital Signs 06/09/23 09:58 Height 5 ft 2 in Weight 210 lb 6 oz BMI 38.5 BP 140/88 H Blood Pressure Location Lt brachial Position Sitting Pulse 76 Pulse Source Pulse Oximeter Pulse Oximetry (%) 95 Oxygen Delivery Method Room Air Intake Visit Reasons: Dr. 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 Accompanied by: Self / Same As Patient Allergies cat dander [CAT DANDER] Allergy (Intermediate, Verified 06/09/23 10:27) skin rash mite-Dermatophagoides farinae, skyla [DUST MITES] Allergy (Intermediate, Verified 06/09/23 10:27) watery itchy eyes, sneezing Medication List - Last Reconciled 06/10/23 by Niko Saha MD acetaminophen (Tylenol) 325 mg PO BID PRN albuterol sulfate 90 mcg/actuation 1 - 2 puffs PO Q4-6H PRN 30 days amlodipine 5 mg PO DAILY 90 days aspirin 81 mg PO DAILY 90 days atorvastatin 80 mg PO BEDTIME 90 days cholecalciferol (vitamin D3) 25 mcg PO DAILY docusate sodium 100 mg PO DAILY PRN 90 days epinephrine 0.3 mL IM DAILY PRN ferrous sulfate (Iron (ferrous sulfate)) 325 mg PO BID furosemide 40 mg PO DAILY 90 days gabapentin 100 mg PO TID 30 days lactulose 15 mL PO DAILY PRN losartan 100 mg PO DAILY 90 days mometasone 0.1% 1 appl topical DAILY PRN bmmezgojiurf-vycjzcyw-xqurow 1 tab PO DAILY nystatin 1 appl topical DAILY PRN 30 days omega-3 fatty acids 1,000 mg PO DAILY omeprazole 20 mg PO DAILY 90 days oxycodone 5 mg PO Q8H PRN 30 days polyethylene glycol 3350 17 grams PO DAILY 30 days sertraline 200 mg PO DAILY sumatriptan succinate 25 mg PO Q2-4H PRN 30 days trazodone 150 mg PO BEDTIME walker with wheels Tobacco use date assessed: 06/09/23 Fall risk assessment: 1 Fall in past year Last assessed Fall Risk: 06/09/23 Dental Screening Dental Screen Date: 06/09/23 Did you have a dental visit in the last 12 months?: Yes Did you have a dental problem in the last 6 months where you did not have access to dental care?: No Was dental information given to patient?: Patient has dentist HPI Dr. Guzmán 06/23 right eye HPI Details Patient comes in today at the request of Dr. Last Wan for a preoperative medical examination for clearance for surgery Patient is scheduled for cataract extraction/phacoemusification with IOL of the left eye under MAC on 06/23/2023, followed by the same procedure on the right eye a couple of weeks later on 07/07/[address] Wan Patient states that she currently feels okay She denies any headaches or dizziness Denies any chest pains, no shortness of breath No nausea /vomiting, no abdominal pain No change in bowel habits noted [facility] Medical History (Updated 06/11/23 @ 09:22 by Niko Saha MD) Depression Obesity (BMI 30-39.9) Vitamin D deficiency Migraine GERD without esophagitis Anemia Asthma Pure hypercholesterolemia Environmental allergies Venous (peripheral) insufficiency Complex renal cyst Morbid obesity with BMI of 40.0-44.9, adult Gall stones Mild major depression Dyslipidemia Tremor of left hand Non-toxic multinodular goiter Lumbar degenerative disc disease Renal calculi Insomnia Constipation due to opioid therapy Essential hypertension Surgical History Hx of biopsy H/O colonoscopy Hx of dilation and curettage History of esophagogastroduodenoscopy (EGD) Hx of hand surgery History of lumpectomy of left breast History of lithotripsy History of left knee replacement History of section Family History Father Medical history unknown Mother Lung cancer Colon cancer Social History Household Members: None Household Members Other:: daughter Housing: Apartment Are you a primary child care worker to a significant other at home: No Do you presently have visiting nurse or 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 1. Little interest or pleasure in doing things: not at all 2. Feeling down, depressed, or hopeless: not at all 3. Trouble falling or staying asleep, or sleeping too much: not at all 4. Feeling tired or having little energy: not at all 5. Poor appetite or overeating: not at all 6. Feeling bad about yourself - or that you are a failure or have let yourself or your family down: not at all 7. Trouble concentrating on things, such as reading the newspaper or watching television: not at all 8. Moving or speaking so slowly that other people could have noticed. Or the opposite - being so fidgety or restless that you have been moving around a lot more than usual: not at all 9. Thoughts that you would be better off or of hurting yourself in some way: not at all Total score: 0 Depression Screening Interpretation: Positive Depression Screening Follow-up: Existing condition and In treatment Depression Screening Done: Yes 76739 - PHQ-9 Billing: Yes Source: Developed by Drs. Vishal Gonsales, Dione Horn, Eduar Steel and colleagues, with an educational josé miguel from [employer]. Thrive Questionnaire Date Thrive assessed: 06/09/23 I am a: Patient What is your living situation today?: I have a steady place to live Within the past 12 months, did the food you bought not last and you didn't have the money to get more?: Never true Within the past 12 months, did you worry whether your food would run out before you got money to buy more?: Never true Do you have trouble paying for medicines?: No Do you have trouble getting transportation to medical appointments?: No Do you have trouble paying your heating and electricity bill?: No Do you have trouble taking care of your child, family member or friend?: No Do you have trouble with day-to-day activities such as bathing, preparing meals, shopping, managing finances, etc.?: No Are you currently unemployed and looking for a job?: No Are you interested in more education?: No Please select the resources that you would like help with: None Currently or been in a relationship where the following occur: no concerns reported AUDIT C Alcohol Use Questionnaire (AUDIT-C) 1. How often do you have a drink containing alcohol?: Never Total Score: 0 Score Reviewed/Action Taken: Yes SHAMIR-7 AMB Questionnaire SHAMIR-7 Date SHAMIR - 7 assessed: 06/09/23 Feeling nervous, anxious, or on edge: 0 = Not at all Not being able to stop or control worryin = Not at all Worrying too much about different things: 0 = Not at all Trouble relaxin = Not at all Being so restless that it is hard to sit still: 0 = Not at all Becoming easily annoyed or irritable: 0 = Not at all Feeling afraid as if something awful might happen: 0 = Not at all Total SHAMIR-7 score (0-4 normal; 5-9 mild; 10-14 moderate; 15-21 severe): 0 Source: Developed by Drs. Vishal Gonsales, Dione Horn, Eduar Steel and colleagues, with an educational josé miguel from [employer]. Review of Systems Const Denies chills, Denies fatigue, Denies fever(s) and Denies headache(s) Eyes Reports blurry vision ENT Denies dysphagia, Denies dizziness, Denies otalgia, Denies headache(s), Denies neck pain, Denies odynophagia and Denies sore throat Card Denies chest pain, Denies palpitations and Denies dyspnea Resp Denies cough and Denies dyspnea GI Denies abdominal pain, Denies constipation, Denies dysphagia, Denies heartburn, Denies diarrhea, Denies nausea, Denies odynophagia and Denies vomiting Denies difficulty voiding, Denies nocturia and Denies dysuria Musc Reports back pain (over the lower back - chronic), Reports arthralgias (right knee - chronic) and Denies neck pain Skin/Breast Denies rash Neuro Denies dizziness and Denies headache(s) Endo Denies fatigue and Denies palpitations Physical exam (Primary Care) Vital Signs: Last Vital Signs Pulse 76 06/09/23 09:58 BP 140/88 H 06/09/23 09:58 Pulse Ox 95 06/09/23 09:58 Oxygen Delivery Method Room Air 06/09/23 09:58 BMI result Body Mass Index 38.5 Tobacco/Smoking Status: Tobacco use Status Tobacco use date assessed 06/09/23 06/09/23 10:06 Patient Tobacco Use Status Never used Tobacco 06/09/23 10:06 e-Cigarette/Vaping Use Never Used 06/09/23 10:06 PHQ-9: PHQ-9 Score PHQ-9: Total score 0 06/10/23 05:14 Depression Screening Interpretation: Positive Depression Screening Follow-up: Existing condition and In treatment Thrive Assessment: Date of Thrive Assessment Date Thrive assessed 06/09/23 06/09/23 10:06 Currently or been in a relationship where the following occur: no concerns reported Const General: no acute distress and alert HENMT Ears: TM's normal bilaterally and EAC's normal Throat: Yes posterior oropharynx normal and Yes tonsils normal (no TP congestion) Neck Neck: Yes no lymphadenopathy and Yes supple Resp Auscultation: clear to auscultation bilaterally, no rales and no wheezes Cardio Rate: regular rate Rhythm: regular rhythm Heart sounds: Murmur heart sound present systolic soft, II/ and at the right sternal border GI Palpation (GI): Soft to palpation and nontender Auscultation: normal bowel sounds Back/Spine/Pelvis Thoracic/Lumbar Spine: lumbar spinal tenderness (mild) Skin Rashes: no rashes Extrem General: Yes no clubbing, cyanosis or edema Right lower extremity: knee Details: tenderness; no swelling Results Reviewed Results Reviewed: Laboratory Tests 04/15/23 04/15/23 05/08/23 15:21 15:21 11:30 WBC 7.1 Hgb 10.9 L Hct 35.2 L Plt Count 191 Sodium 143 Potassium 4.4 Creatinine 0.90 Estimated GFR > 60 Random Glucose 103 Calcium 9.7 Magnesium 2.2 AST 14 ALT 8 Specific [place] (Auto) 1.020 Urine Protein (Auto) Glucose (UA)(Auto) Urine Blood (Auto) 05/08/23 11:30 WBC Hgb Hct Plt Count Sodium Potassium Creatinine Estimated GFR Random Glucose Calcium Magnesium AST ALT Specific [place] (Auto) Urine Protein (Auto) 0 Glucose (UA)(Auto) 0 Urine Blood (Auto) 0 Assessment and Plan Assessment & Plan (1) Preoperative examination: Code(s): Z01.818 - Encounter for other preprocedural examination Plan: Patient currently presents with acceptable risks for planned low cardiac-risk procedure(s) She currently does not have any significant cardiac or pulmonary issues Her most recent labs done in April 2023 are all within normal limits, other than her mild anemia (2) Cataract: Code(s): H26.9 - Unspecified cataract Qualifiers: Age-related cataract type: unspecified Cataract type: age-related Laterality: bilateral Qualified Code(s): H25.9 - Unspecified age-related cataract Plan: She is scheduled for cataract extraction/phacoemusification with IOL of the left eye under MAC on 06/23/2023, followed by the same procedure on the right eye a couple of weeks later on 07/07/[address] Wan (3) Essential hypertension: Code(s): I10 - Essential (primary) hypertension Plan: Reinforced low sodium diet - goal is systolic BP of at least 130 to 140 mm or less Continue Losartan 100 mg QD, Amlodipine 5 mg QD and Furosemide 40 mg QD (4) Pure hypercholesterolemia: Code(s): E78.00 - Pure hypercholesterolemia, unspecified Plan: Reinforced low cholesterol diet Continue Atorvastatin 80 mg QD (5) Cardiac murmur: Code(s): R01.1 - Cardiac murmur, unspecified Plan: Patient is advised that she has a soft systolic murmur noted on her exam today but reassured that this should have no bearing on her upcoming eye surgery Murmur is likely due to as it sounds more prominent over the right upper sternal border Will send her for an echocardiogram for further evaluation (6) Asthma: Code(s): J45.909 - Unspecified asthma, uncomplicated Qualifiers: Asthma complication type: uncomplicated Asthma persistence: intermittent Asthma severity: mild Qualified Code(s): J45.20 - Mild intermittent asthma, uncomplicated Plan: Controlled lately Continue Albuterol HFA 1 to 2 inhalations Q 6 hours PRN and Montelukast 10 mg QD (7) Anemia: Code(s): D64.9 - Anemia, unspecified Qualifiers: Anemia type: iron deficiency Iron deficiency anemia type: inadequate dietary iron intake Qualified Code(s): D50.8 - Other iron deficiency anemias Plan: She is still slightly anemic on her labs done back in April 2023 but her H/H have been stable over the past few months Continue Ferrous Sulfate 325 mg BID (8) GERD without esophagitis: Code(s): K21.9 - Gastro-esophageal reflux disease without esophagitis Plan: Dietary restrictions reinforced Continue Omperazole 20 mg QD (9) Vitamin D deficiency: Code(s): E55.9 - Vitamin D deficiency, unspecified Plan: Continue Vitamin D3 1000 units QD (10) Constipation: Code(s): K59.00 - Constipation, unspecified Qualifiers: Constipation type: drug induced constipation Qualified Code(s): K59.03 - Drug induced constipation Plan: Reinforced increased oral fluids and dietary fiber Continue Docusate 100 mg QD PRN and Miralax 17 gm QD (11) Osteoarthritis: Code(s): M19.90 - Unspecified osteoarthritis, unspecified site Qualifiers: Osteoarthritis location: multiple joints Osteoarthritis type: primary Qualified Code(s): M15.9 - Polyosteoarthritis, unspecified Plan: Continue Gabapentin 100 mg TID, Acetaminophen 325 mg BID PRN and Oxycodone 5 mg Q 8 hours PRN (12) Insomnia: Code(s): G47.00 - Insomnia, unspecified Qualifiers: Insomnia type: unspecified Qualified Code(s): G47.00 - Insomnia, unspecified Plan: Sleep hygiene reinforced Continue Trazodone 150 mg Q HS PRN (13) Depression: Code(s): F32.A - Depression, unspecified Qualifiers: Depression Type: major depressive disorder Major depression recurrence: recurrent Active/Remission status: currently active Major depression episode severity: unspecified Qualified Code(s): F33.9 - Major depressive disorder, recurrent, unspecified Plan: Continue Sertraline 200 mg QD (14) Obesity (BMI 30-39.9): Code(s): E66.9 - Obesity, unspecified Plan: Exercise and weight loss are not realistic in this patient due to her age and comorbidities Plan Patient currently appears medically optimized and does not have any medical contraindications to undergo planned low cardiac risk procedure - she is CLEARED TO UNDERGO CATARACT SURGERY SCHEDULED WITH DR. WAN Follow up with PCP as scheduled in November 2023 Orders: Orders CA echo transthoracic complete 06/09/23 R01.1 - Cardiac murmur, unspecified Coding Level of Care Code Est Pt Level 4 (26213) Diagnoses Preoperative examination Z01.818 Age-related cataract of both eyes, unspecified age-related cataract type H25.9 Age-related cataract type: unspecified Cataract type: age-related Laterality: bilateral Essential hypertension I10 Pure hypercholesterolemia E78.00 Cardiac murmur R01.1 Mild intermittent asthma without complication J45.20 Asthma complication type: uncomplicated Asthma persistence: intermittent Asthma severity: mild Iron deficiency anemia secondary to inadequate dietary iron intake D50.8 Anemia type: iron deficiency Iron deficiency anemia type: inadequate dietary iron intake GERD without esophagitis K21.9 Vitamin D deficiency E55.9 Drug-induced constipation K59.03 Constipation type: drug induced constipation Primary osteoarthritis involving multiple joints M15.9 Osteoarthritis location: multiple joints Osteoarthritis type: primary Insomnia, unspecified type G47.00 Insomnia type: unspecified Episode of recurrent major depressive disorder, unspecified depression episode severity F33.9 Depression Type: major depressive disorder Major depression recurrence: recurrent Active/Remission status: currently active Major depression episode severity: unspecified Obesity (BMI 30-39.9) E66.9
== END 2023-06-09 10:39 | disposition home or self-care (01) ==
PROVIDERS: PCP Internal Medicine; Visit Provider Internal Medicine
DX: H25.9 Unspecified age-related cataract (principal); Z01.818 Encounter for other preprocedural examination; I10 Essential (primary) hypertension; F33.9 Major depressive disorder, recurrent, unspecified; E78.00 Pure hypercholesterolemia, unspecified; R01.1 Cardiac murmur, unspecified; J45.20 Mild intermittent asthma, uncomplicated; D50.8 Other iron deficiency anemias; K21.9 Gastro-esophageal reflux disease without esophagitis; E55.9 Vitamin D deficiency, unspecified; K59.03 Drug induced constipation; M15.9 Polyosteoarthritis, unspecified
CPT/HCPCS: 99214

== ENCOUNTER 2023-06-12 10:12 | Outpatient (AMB) | payer OTHER, SELFPAY ==
[2023-06-12 10:15] VITALS: BMI 38.4
--- NOTE | 2023-06-12 10:15 | MHC.OFFVIS ---
Intake Vital Signs 06/12/23 10:15 Height 5 ft 2 in Weight 210 lb BMI 38.4 Intake Visit Reasons: 2 week leg check Intake Note: 2 week follow up Left LE non-healing wounds and new blisters. Pt also had a large hard area in the thigh. Pt states the wounds are healed and the hard lump has softened Accompanied by: Daughter Allergies cat dander [CAT DANDER] Allergy (Intermediate, Verified 06/12/23 10:19) skin rash mite-Dermatophagoides farinae, skyla [DUST MITES] Allergy (Intermediate, Verified 06/12/23 10:19) watery itchy eyes, sneezing HPI 2 week leg check HPI Details Very pleasant 77-year-old female presents for follow-up regarding her left lower extremity. She had these recurrent ulcers that appear to have healed. Of concern is a major collection in the medial thigh area. There is an opening with some serous drainage from there. In general she reports it has decreased. The pain and discomfort have improved significantly. She now presents for follow-up. [facility] Medical History Depression Obesity (BMI 30-39.9) Vitamin D deficiency Migraine GERD without esophagitis Anemia Asthma Pure hypercholesterolemia Environmental allergies Venous (peripheral) insufficiency Complex renal cyst Morbid obesity with BMI of 40.0-44.9, adult Gall stones Mild major depression Dyslipidemia Tremor of left hand Non-toxic multinodular goiter Lumbar degenerative disc disease Renal calculi Insomnia Constipation due to opioid therapy Essential hypertension Surgical History Hx of biopsy H/O colonoscopy Hx of dilation and curettage History of esophagogastroduodenoscopy (EGD) Hx of hand surgery History of lumpectomy of left breast History of lithotripsy History of left knee replacement History of section Family History Father Medical history unknown Mother Lung cancer Colon cancer Social History Household Members: None Household Members Other:: daughter Housing: Apartment Are you a primary career development director to a significant other at home: No Do you presently have visiting nurse or 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 home 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) Alcohol intake: never Patient Tobacco Use Status: Never used Tobacco e-Cigarette/Vaping Use: Never Used Second Hand Smoke Exposure: No service: No 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al status: unemployed and disabled 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 Cognitive needs: Yes Hearing needs: No Vision needs: Yes Review of Systems Const All systems reviewed & are unremarkable except as noted in HPI and below Reports no additional complaints ENT Reports Normal hearing present Card Denies chest pain, Denies chest pain at rest, Denies chest pain with activity and Denies pedal edema Resp Denies cough GI Denies abdominal pain Musc Denies abnormal gait, Denies muscle cramps and Denies radiating pain into limb Skin/Breast Denies skin ulcer and Denies wounds Neuro Reports Normal hearing present and Denies abnormal gait Psych Reports no additional complaints Physical Exam Vital Signs: BMI result Body Mass Index 38.4 Const General: cooperative, healthy appearing and comfortable Orientation/consciousness: oriented to person, oriented to place and oriented to time HEENT Head: Yes normal to inspection Neck Neck: Yes normal visual inspection Carotids: no bruits Chest Chest palpation & inspection: normal inspection of the chest Resp Effort & Inspection: normal respiratory effort and able to speak in complete sentences Auscultation: clear to auscultation bilaterally, no crackles, no rales, no rhonchi and no wheezes Cardio Rate: regular rate Rhythm: regular rhythm Heart sounds: S1 normal heart sound present and S2 normal heart sound present Bruits: no carotid bruits Peripheral pulses: Peripheral pulses 2+ throughout GI Inspection: Yes normal to inspection Skin Other: Left medial thigh collection approximately 6 cm in diameter Wounds: no wounds Hair: normal Neuro General: oriented to person, oriented to place and oriented to time Cranial nerves: Yes CN's II-XII intact bilaterally and Yes Normal hearing present Cognition (Neuro): normal cognition Motor exam (neuro): 5/5 motor strength present throughout Extrem Other: venous exam: No significant superficial varicosities or spider telangiectasias, minimal edema General: No clubbing, No cyanosis and No edema Psych Appearance: grossly normal Mental Status: mental status grossly normal Speech and movement: Normal speech and movement present Assessment & Plan Assessment & Plan (1) Varicose veins of left lower extremity with inflammation: Comment: 05/07/2022 - left great saphenous vein Cyanoacralate ablation 01/17/2023 - left leg microphlebectomy Code(s): I83.12 - Varicose veins of left lower extremity with inflammation Plan: In short left leg appears to be doing relatively better. Should it continue to shrink would leave it alone. If he continues to be a source of an issue may require excision of this area. She will follow up with us in approximately 3 weeks time. Thank you for allowing us to assist in her care. If there are questions or concerns please do not hesitate to contact us. Coding Level of Care Code Est Pt Level 4 (78145) Diagnoses Varicose veins of left lower extremity with inflammation I83.12
== END 2023-06-12 10:34 | disposition home or self-care (01) ==
PROVIDERS: PCP Internal Medicine; Visit Provider Surgery Vascular Surgery
DX: I83.12 Varicose veins of left lower extremity with inflammation (principal)
CPT/HCPCS: 99213

== ENCOUNTER → 2023-06-12 10:12 | Outpatient (BNVA) | payer OTHER, SELFPAY | PROVIDERS: PCP Internal Medicine; Visit Provider Surgery Vascular Surgery | DX: I83.12 Varicose veins of left lower extremity with inflammation (principal) | CPT/HCPCS: 99212 ==

== ENCOUNTER 2023-06-17 10:18 | Outpatient (REF) | payer OTHER, SELFPAY ==
--- NOTE | ~2023-06-17 | CT_ITS ---
EXAMINATION: CT ABDOMEN AND PELVIS WITHOUT CONTRAST CLINICAL INFORMATION: Calculus of kidney COMPARISON: None available. TECHNIQUE: Multidetector volumetric imaging was performed from the superior aspect of the liver through the pubic symphysis. Sagittal and coronal reformatted images were obtained on the technologist's workstation. This CT examination was performed using dose optimization techniques as appropriate, variously including the following: *Automated exposure control *Adjustment of mA and/or kV according to patient size (this includes techniques or standardized protocols for targeted exams where dose is matched to indication/reason for exam; i.e. 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 Pelvic calcifications, likely uterine fibroids. LUNG BASES: The visualized lung bases are unremarkable. LIVER, GALLBLADDER, AND BILIARY TREE: The liver is normal in size, shape, and attenuation. Too small to characterize hepatic hypodensities near the dome, statistically cysts. No biliary ductal dilatation is present. The gallbladder is unremarkable with no evidence of radiopaque gallstones, gallbladder wall thickening, or obvious pericholecystic inflammatory changes. PANCREAS: Unremarkable. SPLEEN: Unremarkable. ADRENAL GLANDS: Unremarkable. KIDNEYS AND URETERS: The kidneys are normal in size, shape, and attenuation. No hydronephrosis or hydroureter. 1 cm right lower pole nonobstructing renal calculus. No perinephric stranding. BLADDER: Unremarkable. GASTROINTESTINAL TRACT: Moderate sized hiatal hernia with asymmetrically thick klein. Decompressed stomach. Nonobstructive bowel pattern. Appendix not seen. Diverticulosis without diverticulitis. ABDOMINAL WALL: Small fat filled umbilical hernia. LYMPH NODES: Normal. VASCULAR: Atherosclerotic calcifications nonaneurysmal aorta. Inferior vena cava of normal caliber. PELVIC VISCERA: Calcified uterine fibroids. OSSEOUS STRUCTURES: L4 on L5 grade 1 anterolisthesis. T12-L1 sclerosis and spurring with disc space narrowing. T11 and T12 vertebral body height losses. CT/CT abdomen pelvis wo IV con IMPRESSION: 1 cm nonobstructing right renal calculus. Bilateral renal cysts. Moderate sized hiatal hernia with asymmetrically thickened klein. Diverticulosis without diverticulitis. Fibroid uterus. Fleischner guidelines were followed.
== END 2023-06-17 10:19 | disposition home or self-care (01) ==
LOC: HO.CT 10:18
PROVIDERS: PCP Internal Medicine; Visit Provider Nurse Practitioner Family
DX: R10.9 Unspecified abdominal pain (principal); N20.0 Calculus of kidney
CPT/HCPCS: 74176

== ENCOUNTER 2023-06-23 07:50 | Day surgery (SDC) | payer OTHER, SELFPAY ==
[2023-06-17 09:29] VITALS: BMI 38.4
--- NOTE | 2023-06-20 08:32 | MHC.SHP ---
Pre-Procedural Eval Section A Date of Service: 06/20/23 The patient is an INPATIENT: No Changes since office visit: No Cold of Flu in the past 2 weeks, No New Medical Problems, No Changes in Medication and No Patient answered all questions The History & Physical has been completed within 30 days and I have reviewed it.: Yes Section B Chief Complaint: Age-related nuclear cataract, left eye Allergies: Allergies Allergy/AdvReac Type Severity Reaction Status Date / Time cat dander [CAT DANDER] Allergy Intermediate skin rash Verified 06/12/23 10:19 mite-Dermatophagoides Allergy Intermediate watery Verified 06/12/23 10:19 farinae, skyla itchy [DUST MITES] eyes, sneezing Plan Diagnosis/Plan: Unchanged I have reviewed the history and physical and performed a pertinent physical examination on my patient. No changes have occurred unless specified. Time Spent With Patient Time: Total time managing care of this patient today ____ minutes.
--- NOTE | 2023-06-20 09:03 | HO.ANESPROP2 ---
Documented by User: Chloe Young NP 06/20/23 09:04 HPI - Anesthesia Eval Consult details Narrative: 77yo F for Left Cataract Extraction IOL Insertion Medically cleared No previous cataract on record [facility] Active Problems Active Problems: All Active Problems (Updated 06/17/23 @ 08:41 by Jo Mullins RN) Insomnia (Acute) Osteoarthritis (Acute) Constipation (Acute) Cataract (Acute) Preoperative examination (Acute) Cardiac murmur (Acute) Left leg cellulitis (Acute) Left flank pain (Acute) Leg wound, left (Acute) Phlebitis of left leg (Acute) Shoulder pain, left (Acute) Left serous otitis media (Acute) Varicose veins of left lower extremity with inflammation (Acute) Physical exam (Acute) Left otitis media (Acute) Varicose veins of right lower extremity with inflammation (Acute) Osteoarthritis of right knee (Acute) UTI (urinary tract infection) (Acute) Weight loss (Acute) Neck pain (Acute) Osteoarthritis of right knee (Acute) Right knee pain (Acute) 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) History of colon polyps (Acute) Diverticulosis (Acute) UTI (urinary tract infection) (Acute) Hypovitaminosis D (Acute) Depression (Acute) Obesity (BMI 30-39.9) (Acute) Vitamin D deficiency (Acute) Migraine (Acute) GERD without esophagitis (Acute) Anemia (Acute) Asthma (Acute) Pure hypercholesterolemia (Acute) Venous (peripheral) insufficiency (Acute) Complex renal cyst (Acute) Morbid obesity with BMI of 40.0-44.9, adult (Acute) Mild major depression (Acute) Renal calculi (Acute) Dyslipidemia (Acute) Tremor of left hand (Acute) Non-toxic multinodular goiter (Acute) Lumbar degenerative disc disease (Acute) Insomnia (Acute) Constipation due to opioid therapy (Acute) Essential hypertension (Acute) Past Medical History Medical History HX: breast cancer Thyroid disease Depression Obesity (BMI 30-39.9) Vitamin D deficiency Migraine GERD without esophagitis Anemia Asthma Pure hypercholesterolemia Environmental allergies Venous (peripheral) insufficiency Complex renal cyst Morbid obesity with BMI of 40.0-44.9, adult Gall stones Mild major depression Dyslipidemia Tremor of left hand Non-toxic multinodular goiter Lumbar degenerative disc disease Renal calculi Insomnia Constipation due to opioid therapy Essential hypertension Family History Family History Father Medical history unknown Mother Lung cancer Colon cancer Family history of problems with anesthesia: No Surgical History Surgical History Hx of biopsy H/O colonoscopy Hx of dilation and curettage History of esophagogastroduodenoscopy (EGD) Hx of hand surgery History of lumpectomy of left breast History of lithotripsy History of left knee replacement History of section History of Problems with Anesthesia: No Social History Social History Household Members: None Household Members Other:: daughter Housing: Apartment Are you a primary caretaker grounds to a significant other at home: No Do you presently 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) Alcohol intake: never Patient Tobacco Use Status: Never used Tobacco e-Cigarette/Vaping Use: Never Used Second Hand Smoke Exposure: No Use of substances other than those prescribed or required for medical reasons: No Advance Directives: No Advance Directives Information Provided: Yes Advance Directives on File: No Recently lost weight without trying: No Eating poorly because of decreased appetite: No Nutrition Risks: No Nutritional Risk Patient : No : No Poor oral hygiene: Yes (Full Upper and lower) service: No 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al status: unemployed and disabled 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 Cognitive needs: Yes Hearing needs: No Vision needs: Yes Meds Allergies Allergy/AdvReac Type Severity Reaction Status Date / Time cat dander [CAT DANDER] Allergy Intermediate skin rash Verified 06/23/23 09:19 mite-Dermatophagoides Allergy Intermediate watery Verified 06/23/23 09:19 farinae, skyla itchy [DUST MITES] eyes, sneezing Home Medications Medication Instructions Recorded Confirmed Last Taken Type acetaminophen 325 mg tablet 325 mg PO BID PRN Pain 05/22/20 06/17/23 Unknown History (Tylenol) nnixseidzzza-cnqbnppw-gnlead tablet 1 tab PO DAILY 05/22/20 06/17/23 Unknown History omega-3 fatty acids 1,000 mg 1,000 mg PO DAILY 05/22/20 06/17/23 Unknown History capsule trazodone 150 mg tablet 150 mg PO BEDTIME 05/22/20 06/17/23 Unknown History epinephrine 0.3 mg/0.3 mL 0.3 ml IM DAILY PRN Allergic 07/17/21 06/17/23 Unknown History injection, auto-injector Reaction mometasone 0.1 % topical cream 1 appl topical DAILY PRN Rash 07/17/21 06/17/23 Unknown History sertraline 100 mg tablet 200 mg PO DAILY 10/18/22 06/17/23 06/23/23 History 200 mg montelukast 10 mg tablet 10 mg PO BEDTIME 06/17/23 06/17/23 Unknown History naproxen 500 mg tablet 500 mg PO BID PRN pain 06/17/23 06/17/23 Unknown History olopatadine 0.1 % eye drops 1 drp ophthalmic (eye) DAILY 06/17/23 06/17/23 Unknown History oxycodone 5 mg tablet 5 mg PO BID pain 06/17/23 06/17/23 06/23/23 History 5 mg Exam Height,Weight and Vital Signs: Height 5 ft 2 in Weight 95.254 kg Assessment and Plan Assessment Anesthesia Assessment: Chart Reviewed Final Anesthetic Review Family History of Problems with Anesthesia: No History of Problems with Anesthesia: No Documented by User: Daja Crane MD 06/23/23 10:12 [facility] Active Problems Active Problems: All Active Problems (Updated 06/23/23 @ 09:45 by Daja Crane MD) Insomnia (Acute) Osteoarthritis (Acute) Constipation (Acute) Cataract (Acute) Preoperative examination (Acute) Cardiac murmur (Acute) Left leg cellulitis (Acute) Left flank pain (Acute) Leg wound, left (Acute) Phlebitis of left leg (Acute) Shoulder pain, left (Acute) Left serous otitis media (Acute) Varicose veins of left lower extremity with inflammation (Acute) Physical exam (Acute) Varicose veins of right lower extremity with inflammation (Acute) Osteoarthritis of right knee (Acute) UTI (urinary tract infection) (Acute) Weight loss (Acute) Neck pain (Acute) Osteoarthritis of right knee (Acute) Right knee pain (Acute) 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) History of colon polyps (Acute) Diverticulosis (Acute) Hypovitaminosis D (Acute) Depression (Acute) Obesity BMI 38.4 Vitamin D deficiency (Acute) Migraine (Acute) GERD without esophagitis (Acute) Anemia (Acute) Asthma (Acute) Pure hypercholesterolemia (Acute) Venous (peripheral) insufficiency (Acute) Complex renal cyst (Acute) Morbid obesity with BMI of 40.0-44.9, adult (Acute) Mild major depression (Acute) Renal calculi (Acute) Dyslipidemia (Acute) Tremor of left hand (Acute) Non-toxic multinodular goiter (Acute) Lumbar degenerative disc disease (Acute) Insomnia (Acute) Constipation due to opioid therapy (Acute) Essential hypertension (Acute) Past Medical History Medical History HX: breast cancer Thyroid disease Depression Obesity (BMI 30-39.9) Vitamin D deficiency Migraine GERD without esophagitis Anemia Asthma Pure hypercholesterolemia Environmental allergies Venous (peripheral) insufficiency Complex renal cyst Morbid obesity with BMI of 40.0-44.9, adult Gall stones Mild major depression Dyslipidemia Tremor of left hand Non-toxic multinodular goiter Lumbar degenerative disc disease Renal calculi Insomnia Constipation due to opioid therapy Essential hypertension Family History Family History Father Medical history unknown Mother Lung cancer Colon cancer Surgical History Surgical History Hx of biopsy H/O colonoscopy Hx of dilation and curettage History of esophagogastroduodenoscopy (EGD) Hx of hand surgery History of lumpectomy of left breast History of lithotripsy History of left knee replacement History of section Social History Social History Household Members: None Household Members Other:: daughter Housing: Apartment Are you a primary caretaker grounds to a significant other at home: No Do you presently 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) Alcohol intake: never Patient Tobacco Use Status: Never used Tobacco e-Cigarette/Vaping Use: Never Used Second Hand Smoke Exposure: No Use of substances other than those prescribed or required for medical reasons: No Advance Directives: No Advance Directives Information Provided: Yes Advance Directives on File: No Recently lost weight without trying: No Eating poorly because of decreased appetite: No Nutrition Risks: No Nutritional Risk Patient : No : No Poor oral hygiene: Yes (Full Upper and lower) service: No 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al status: unemployed and disabled 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 Cognitive needs: Yes Hearing needs: No Vision needs: Yes Meds Allergies Allergy/AdvReac Type Severity Reaction Status Date / Time cat dander [CAT DANDER] Allergy Intermediate skin rash Verified 06/23/23 09:19 mite-Dermatophagoides Allergy Intermediate watery Verified 06/23/23 09:19 farinae, skyla itchy [DUST MITES] eyes, sneezing Home Medications Medication Instructions Recorded Confirmed Last Taken Type acetaminophen 325 mg tablet 325 mg PO BID PRN Pain 05/22/20 06/17/23 Unknown History (Tylenol) sojvtgpbadwd-nygespjk-sptvwe tablet 1 tab PO DAILY 05/22/20 06/17/23 Unknown History omega-3 fatty acids 1,000 mg 1,000 mg PO DAILY 05/22/20 06/17/23 Unknown History capsule trazodone 150 mg tablet 150 mg PO BEDTIME 05/22/20 06/17/23 Unknown History epinephrine 0.3 mg/0.3 mL 0.3 ml IM DAILY PRN Allergic 07/17/21 06/17/23 Unknown History injection, auto-injector Reaction mometasone 0.1 % topical cream 1 appl topical DAILY PRN Rash 07/17/21 06/17/23 Unknown History sertraline 100 mg tablet 200 mg PO DAILY 10/18/22 06/17/23 06/23/23 History 200 mg montelukast 10 mg tablet 10 mg PO BEDTIME 06/17/23 06/17/23 Unknown History naproxen 500 mg tablet 500 mg PO BID PRN pain 06/17/23 06/17/23 Unknown History olopatadine 0.1 % eye drops 1 drp ophthalmic (eye) DAILY 06/17/23 06/17/23 Unknown History oxycodone 5 mg tablet 5 mg PO BID pain 06/17/23 06/17/23 06/23/23 History 5 mg Exam Height,Weight and Vital Signs: Height 5 ft 2 in Weight 95.254 kg Vital Signs Temp Pulse Resp BP Pulse Ox O2 Del Method 06/23/23 09:31 98.7 F 57 17 174/68 H 95 Room Air Airway Mallampati Class: II TM Dist: >3cm Neck ROM: Full Loose/Missing/Broken Teeth: Yes (Edentulous) Heart: RRR Lungs: CTAB Assessment and Plan Assessment Anesthesia Assessment: Anesthesia Plan Discussed Final Anesthetic Review NPO: Yes ASA Class: III Final Preanesthetic Review: No Changes in Pt Med Stat, Meds/Allgs Chart Reviewed, Consent Obtained/Reviewed and Anes Risks/Benef Reviewed Patient Risk: Intermediate Procedure Risk: Low Assessment/Block/Sedation in SS: Assess/Block/Sedation-SS Anesthetic Plan Anesthetic Plan: MAC: Disposition: Standard PACU
[2023-06-23] MEDS: Tetracaine HCl/PF 0.5% Oph Sol 4 ML DROPS 1 DROP EYE-LEFT (09:23)
[2023-06-23] MEDS: Cyclopentolate 1 % Ophth Sol 2 ML DRPBTL 1 DROP EYE-LEFT (09:27)
[2023-06-23] MEDS: Tropicamide 1 % Ophth Sol 3 ML BTL 1 DROP EYE-LEFT (09:28)
[2023-06-23] MEDS: Ketorolac Tromethamine 0.5% Op 5 ML DROPS 1 DROP EYE-LEFT (09:29)
[2023-06-23] MEDS: Phenylephrine HCL 2.5% Oph SoL 2 ML BOTTLE 1 DROP EYE-LEFT (09:30)
[2023-06-23 09:31] VITALS: BP 174/68; PULSE 57; RESP 17; TEMP 37.1; O2SAT 95
--- NOTE | 2023-06-23 10:25 | HO.PNOPHT ---
Ophthalmology Procedure Procedure Date of Service: 06/23/23 Ophthalmology Viscoelastic: Healon Duet Dual Pack Pro Ophthalmology Lenses: TECNIS [id number] (19.5) Procedure Notes: PREOPERATIVE DIAGNOSIS: Decreased visual acuity left eye secondary to cataract POSTOPERATIVE DIAGNOSIS: Same PROCEDURE: Left cataract extraction with intraocular lens insertion SURGEON: Last Guzmán M.D. ANESTHESIA: Topical/MAC ESTIMATED BLOOD LOSS: None COMPLICATIONS: None After obtaining informed consent, the patient was brought to the operation room suite and placed in the supine position. After adequate sedation per anesthesia, topical drops of Tetracaine were given to the left eye. The eye was then prepped and draped in the usual sterile fashion. The operating room microscope was then positioned over the operative eye and a lid speculum placed. A paracentesis was created. Viscoelastic was then instilled into the anterior chamber. A three plane incision was then created temporally, utilizing a 2.85 mm keratome. Capsulotomy forceps were then utilized to create a circular tear capsulotomy. Hydrodissection and hydrodelineation were carried out until adequate mobilization of the nucleus occurred. Phacoemulsification was then utilized to remove the dense central nucleus followed by removal of the cortical material utilizing the automated aspiration irrigation unit. Viscoat elastic was instilled into the posterior capsular bag followed by placement of a posterior chamber intraocular lens without difficulty. The residual Viscoat elastic was then removed utilizing the automated IA machine. The wound was check and found to be watertight. The patient tolerated the procedure well and the lid speculum was removed. Intracameral injection of Vigamox 0.1 mL followed by a subtenon injection of Kenalog-40 0.2 mL were administered. The patient will be seen in the a.m.
[2023-06-23 10:56] VITALS: BP 167/98; PULSE 53; RESP 16; TEMP 36.6; O2SAT 96
== END 2023-06-23 11:03 | disposition home or self-care (01) ==
PROVIDERS: PCP Internal Medicine; Visit Provider Ophthalmology
PROC: (CPT 66985; principal; 2023-06-23 10:30)
DX: H25.12 Age-related nuclear cataract, left eye (principal); H52.4 Presbyopia; H35.033 Hypertensive retinopathy, bilateral; H18.413 Arcus senilis, bilateral; H35.09 Other intraretinal microvascular abnormalities; H11.133 Conjunctival pigmentations, bilateral; H11.153 Pinguecula, bilateral; H04.123 Dry eye syndrome of bilateral lacrimal glands; I10 Essential (primary) hypertension; E55.9 Vitamin D deficiency, unspecified; J45.909 Unspecified asthma, uncomplicated; E78.00 Pure hypercholesterolemia, unspecified; Z79.899 Other long term (current) drug therapy; Z79.82 Long term (current) use of aspirin
CPT/HCPCS: 66984; J2250; J3010; J3301; V2632

== ENCOUNTER 2023-07-03 10:36 | Outpatient (AMB) | payer OTHER, SELFPAY ==
--- NOTE | 2023-07-03 10:41 | A.OFFVIS_ITS ---
Intake Vital Signs 07/03/23 10:43 Height 5 ft 2 in Intake Visit Reasons: 3 week left leg check Intake Note: 3 week left leg check pt sates she is doing the same she states that her skin is pealing and it feels dry and painful Allergies cat dander [CAT DANDER] Allergy (Intermediate, Verified 07/03/23 10:43) skin rash mite-Dermatophagoides farinae, skyla [DUST MITES] Allergy (Intermediate, Verified 07/03/23 10:43) watery itchy eyes, sneezing HPI 3 week left leg check HPI Details Very pleasant 77-year-old female presents for follow-up regarding nonhealing ulcers of the left medial thigh calf. Of note she underwent left g reat saphenous vein Cyanoacralate ablation nearly a year ago. She has recurrent itching swelling and ulcerations along the ablation line. In addition she has phlebitic veins along that line. They have a source of pain and discomfort for her for nearly a year. She now presents for follow-up evaluation [facility] Medical History HX: breast cancer Thyroid disease Depression Obesity (BMI 30-39.9) Vitamin D deficiency Migraine GERD without esophagitis Anemia Asthma Pure hypercholesterolemia Environmental allergies Venous (peripheral) insufficiency Complex renal cyst Morbid obesity with BMI of 40.0-44.9, adult Gall stones Mild major depression Dyslipidemia Tremor of left hand Non-toxic multinodular goiter Lumbar degenerative disc disease Renal calculi Insomnia Constipation due to opioid therapy Essential hypertension Surgical History Hx of biopsy H/O colonoscopy Hx of dilation and curettage History of esophagogastroduodenoscopy (EGD) Hx of hand surgery History of lumpectomy of left breast History of lithotripsy History of left knee replacement History of section Family History Father Medical history unknown Mother Lung cancer Colon cancer Social History Household Members: None Household Members Other:: daughter Housing: Apartment Are you a primary nurse care manager to a significant other at home: No Do you presently 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) Alcohol intake: never Patient Tobacco Use Status: Never used Tobacco e-Cigarette/Vaping Use: Never Used Second Hand Smoke Exposure: No service: No 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al status: unemployed and disabled 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 Cognitive needs: Yes Hearing needs: No Vision needs: Yes Review of Systems Const Reports as per HPI ENT Reports no additional complaints Card Denies chest pain, Denies chest pain at rest and Denies chest pain with activity Resp Denies chest congestion and Denies cough GI Reports no additional complaints Musc Details: pain over varicosities, aching of lower extremities, swelling, cramping, heaviness and tiredness, itching Denies abnormal gait Skin/Breast Reports pruritus and Denies wounds Neuro Reports no additional complaints and Denies abnormal gait Psych Denies no additional complaints Physical Exam Const General: cooperative, healthy appearing and comfortable Orientation/consciousness: oriented to person, oriented to place and oriented to time Neck Carotids: no bruits Chest Chest palpation & inspection: normal inspection of the chest and normal palpation of entire chest wall Resp Effort & Inspection: normal respiratory effort and able to speak in complete sentences Cardio Rate: regular rate Heart sounds: S1 normal heart sound present and S2 normal heart sound present Peripheral pulses: Peripheral pulses 2+ throughout GI Inspection: Yes normal to inspection Skin Other: +2 edema, large rope-like varicosities greater than 4 mm left thigh and calf CEAP Classification C4 - skin color changes Ep - Etiology Primary As - superficial veins P - reflux General skin exam: dry skin Neuro General: oriented to person, oriented to place and oriented to time Extrem Right lower extremity: full ROM, normal capillary refill and edema Left lower extremity: full ROM, normal capillary refill and edema Psych Mental Status: mental status grossly normal Assessment & Plan Assessment & Plan (1) Varicose veins of left lower extremity with inflammation: Comment: 05/07/2022 - left great saphenous vein Cyanoacralate ablation 01/17/2023 - left leg microphlebectomy Code(s): I83.12 - Varicose veins of left lower extremity with inflammation Plan: This patient has varicose veins with inflammation. They continue to be a source of discomfort for the patient. The patient has tried conservative treatment with compression, leg elevation and exercise program for over 3 months time. They have been compliant with all treatment. This has provided minimal relief for the patient. I do not anticipate this course of treatment will alter the underlying etiology. The patient has been scheduled for lower extremity venous treatment inclusive of --- left leg microphlebectomy. Risks, benefits, and complications of this procedure has been discussed in detail with the patient including but not limited to bleeding, infection, and the development of a DVT. The patient has demonstrated a clear understanding and has consented. We will schedule the patient as soon as possible. Thank you for allowing us to participate in this patient's care. If there are any questions or concerns please do not hesitate to contact us. Coding Level of Care Code Est Pt Level 4 (09936) Diagnoses Varicose veins of left lower extremity with inflammation I83.12
== END 2023-07-03 11:38 | disposition home or self-care (01) ==
PROVIDERS: PCP Internal Medicine; Visit Provider Surgery Vascular Surgery
DX: I83.12 Varicose veins of left lower extremity with inflammation (principal)
CPT/HCPCS: 99214

== ENCOUNTER → 2023-07-03 10:39 | Outpatient (BNVA) | payer OTHER, SELFPAY | PROVIDERS: PCP Internal Medicine; Visit Provider Surgery Vascular Surgery | DX: I83.12 Varicose veins of left lower extremity with inflammation (principal) | CPT/HCPCS: 99212 ==

== ENCOUNTER 2023-07-07 05:57 | Day surgery (SDC) | payer OTHER, SELFPAY ==
--- NOTE | 2023-07-04 08:56 | HO.ANESPROP2 ---
HPI - Anesthesia Eval Consult details Narrative: 77yo F for Left Micro Phlebectomy s/p cataract 06/2023 (medically cleared) [facility] Active Problems Active Problems: All Active Problems (Updated 06/17/23 @ 08:41 by Jo Mullins RN) Insomnia (Acute) Osteoarthritis (Acute) Constipation (Acute) Cataract (Acute) Preoperative examination (Acute) Cardiac murmur (Acute) Left leg cellulitis (Acute) Left flank pain (Acute) Leg wound, left (Acute) Phlebitis of left leg (Acute) Shoulder pain, left (Acute) Left serous otitis media (Acute) Varicose veins of left lower extremity with inflammation (Acute) Physical exam (Acute) Left otitis media (Acute) Varicose veins of right lower extremity with inflammation (Acute) Osteoarthritis of right knee (Acute) UTI (urinary tract infection) (Acute) Weight loss (Acute) Neck pain (Acute) Osteoarthritis of right knee (Acute) Right knee pain (Acute) 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) History of colon polyps (Acute) Diverticulosis (Acute) UTI (urinary tract infection) (Acute) Hypovitaminosis D (Acute) Depression (Acute) Obesity (BMI 30-39.9) (Acute) Vitamin D deficiency (Acute) Migraine (Acute) GERD without esophagitis (Acute) Anemia (Acute) Asthma (Acute) Pure hypercholesterolemia (Acute) Venous (peripheral) insufficiency (Acute) Complex renal cyst (Acute) Morbid obesity with BMI of 40.0-44.9, adult (Acute) Mild major depression (Acute) Renal calculi (Acute) Dyslipidemia (Acute) Tremor of left hand (Acute) Non-toxic multinodular goiter (Acute) Lumbar degenerative disc disease (Acute) Insomnia (Acute) Constipation due to opioid therapy (Acute) Essential hypertension (Acute) Past Medical History Medical History HX: breast cancer Thyroid disease Depression Obesity (BMI 30-39.9) Vitamin D deficiency Migraine GERD without esophagitis Anemia Asthma Pure hypercholesterolemia Environmental allergies Venous (peripheral) insufficiency Complex renal cyst Morbid obesity with BMI of 40.0-44.9, adult Gall stones Mild major depression Dyslipidemia Tremor of left hand Non-toxic multinodular goiter Lumbar degenerative disc disease Renal calculi Insomnia Constipation due to opioid therapy Essential hypertension Family History Family History Father Medical history unknown Mother Lung cancer Colon cancer Family history of problems with anesthesia: No Surgical History Surgical History Hx of biopsy H/O colonoscopy Hx of dilation and curettage History of esophagogastroduodenoscopy (EGD) Hx of hand surgery History of lumpectomy of left breast History of lithotripsy History of left knee replacement History of section History of Problems with Anesthesia: No Social History Social History Household Members: None Household Members Other:: daughter Housing: Apartment Are you a primary interior plant caretaker to a significant other at home: No 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) Alcohol intake: never Patient Tobacco Use Status: Never used Tobacco e-Cigarette/Vaping Use: Never Used Second Hand Smoke Exposure: No service: No 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al status: unemployed and disabled 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 Cognitive needs: Yes Hearing needs: No Vision needs: Yes Meds Allergies Allergy/AdvReac Type Severity Reaction Status Date / Time cat dander [CAT DANDER] Allergy Intermediate skin rash Verified 07/03/23 10:43 mite-Dermatophagoides Allergy Intermediate watery Verified 07/03/23 10:43 farinae, skyla itchy [DUST MITES] eyes, sneezing Home Medications Medication Instructions Recorded Confirmed Last Taken Type acetaminophen 325 mg tablet 325 mg PO BID PRN Pain 05/22/20 06/17/23 Unknown History (Tylenol) ngthekyaopoq-noqlgbce-iljfnj tablet 1 tab PO DAILY 05/22/20 06/17/23 Unknown History omega-3 fatty acids 1,000 mg 1,000 mg PO DAILY 05/22/20 06/17/23 Unknown History capsule trazodone 150 mg tablet 150 mg PO BEDTIME 05/22/20 06/17/23 Unknown History epinephrine 0.3 mg/0.3 mL 0.3 ml IM DAILY PRN Allergic 07/17/21 06/17/23 Unknown History injection, auto-injector Reaction mometasone 0.1 % topical cream 1 appl topical DAILY PRN Rash 07/17/21 06/17/23 Unknown History sertraline 100 mg tablet 200 mg PO DAILY 10/18/22 06/17/23 06/23/23 History 200 mg montelukast 10 mg tablet 10 mg PO BEDTIME 06/17/23 06/17/23 Unknown History naproxen 500 mg tablet 500 mg PO BID PRN pain 06/17/23 06/17/23 Unknown History olopatadine 0.1 % eye drops 1 drp ophthalmic (eye) DAILY 06/17/23 06/17/23 Unknown History oxycodone 5 mg tablet 5 mg PO BID pain 06/17/23 06/17/23 06/23/23 History 5 mg Exam Pertinent Lab Results Pertinent Lab Results: Laboratory Tests 04/15/23 15:21 WBC 7.1 Hgb 10.9 L Hct 35.2 L Plt Count 191 Sodium 143 Potassium 4.4 Chloride 106 Carbon Dioxide 32 H BUN 16 Creatinine 0.90 Assessment and Plan Assessment Anesthesia Assessment: Chart Reviewed Final Anesthetic Review Family History of Problems with Anesthesia: No History of Problems with Anesthesia: No
[2023-07-07] VITALS (14 sets, daily range): BP systolic 141–162; BP diastolic 68–109; PULSE 58–77; RESP 16; TEMP 36.2–36.7; O2SAT 96–100; BMI 37.1
[2023-07-07] MEDS: Lactated Ringers 1,000 ML 100 ML IVCONT (06:53)
--- NOTE | 2023-07-07 06:57 | P.CONAN_ITS ---
[facility] Active Problems Active Problems: All Active Problems (Updated 06/17/23 @ 08:41 by Jo Mullins RN) Insomnia (Acute) Osteoarthritis (Acute) Constipation (Acute) Cataract (Acute) Preoperative examination (Acute) Cardiac murmur (Acute) Left leg cellulitis (Acute) Left flank pain (Acute) Leg wound, left (Acute) Phlebitis of left leg (Acute) Shoulder pain, left (Acute) Left serous otitis media (Acute) Varicose veins of left lower extremity with inflammation (Acute) Physical exam (Acute) Left otitis media (Acute) Varicose veins of right lower extremity with inflammation (Acute) Osteoarthritis of right knee (Acute) UTI (urinary tract infection) (Acute) Weight loss (Acute) Neck pain (Acute) Osteoarthritis of right knee (Acute) Right knee pain (Acute) 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) History of colon polyps (Acute) Diverticulosis (Acute) UTI (urinary tract infection) (Acute) Hypovitaminosis D (Acute) Depression (Acute) Obesity (BMI 30-39.9) (Acute) Vitamin D deficiency (Acute) Migraine (Acute) GERD without esophagitis (Acute) Anemia (Acute) Asthma (Acute) Pure hypercholesterolemia (Acute) Venous (peripheral) insufficiency (Acute) Complex renal cyst (Acute) Morbid obesity with BMI of 40.0-44.9, adult (Acute) Mild major depression (Acute) Renal calculi (Acute) Dyslipidemia (Acute) Tremor of left hand (Acute) Non-toxic multinodular goiter (Acute) Lumbar degenerative disc disease (Acute) Insomnia (Acute) Constipation due to opioid therapy (Acute) Essential hypertension (Acute) Past Medical History Medical History HX: breast cancer Thyroid disease Depression Obesity (BMI 30-39.9) Vitamin D deficiency Migraine GERD without esophagitis Anemia Asthma Pure hypercholesterolemia Environmental allergies Venous (peripheral) insufficiency Complex renal cyst Morbid obesity with BMI of 40.0-44.9, adult Gall stones Mild major depression Dyslipidemia Tremor of left hand Non-toxic multinodular goiter Lumbar degenerative disc disease Renal calculi Insomnia Constipation due to opioid therapy Essential hypertension Functional capacity: independent ambulation Patient : No Family History Family History Father Medical history unknown Mother Lung cancer Colon cancer Family history of problems with anesthesia: No Surgical History Surgical History Hx of biopsy H/O colonoscopy Hx of dilation and curettage History of esophagogastroduodenoscopy (EGD) Hx of hand surgery History of lumpectomy of left breast History of lithotripsy History of left knee replacement History of section History of Problems with Anesthesia: No Social History Social History Household Members: None Household Members Other:: daughter Housing: Apartment Are you a primary career specialist to a significant other at home: No Do you 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) Alcohol intake: never Patient Tobacco Use Status: Never used Tobacco e-Cigarette/Vaping Use: Never Used Second Hand Smoke Exposure: No service: No 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al status: unemployed and disabled 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 Cognitive needs: Yes Hearing needs: No Vision needs: Yes Meds Allergies Allergy/AdvReac Type Severity Reaction Status Date / Time cat dander [CAT DANDER] Allergy Intermediate skin rash Verified 07/03/23 10:43 mite-Dermatophagoides Allergy Intermediate watery Verified 07/03/23 10:43 farinae, skyla itchy [DUST MITES] eyes, sneezing Active Medications: Current Medications Albuterol Sulfate (Albuterol Sulfate (0.083%) 2.5 Mg/3 Ml Vial.Neb) 2.5 mg INHALE ONCE PRN PRN Reason: Shortness of Breath/Wheezing Lactated Ringer's (Lr) 1,000 mls @ 100 mls/hr IVCONT .Q10H [place] Last Admin: 07/07/23 06:53 Dose: 100 mls/hr Home Medications Medication Instructions Recorded Confirmed Last Taken Type acetaminophen 325 mg tablet 325 mg PO BID PRN Pain 05/22/20 06/17/23 Unknown History (Tylenol) tnklddpsvrpa-scncrkya-enpkxm tablet 1 tab PO DAILY 05/22/20 06/17/23 Unknown History omega-3 fatty acids 1,000 mg 1,000 mg PO DAILY 05/22/20 06/17/23 Unknown History capsule trazodone 150 mg tablet 150 mg PO BEDTIME 05/22/20 06/17/23 Unknown History epinephrine 0.3 mg/0.3 mL 0.3 ml IM DAILY PRN Allergic 07/17/21 06/17/23 Unknown History injection, auto-injector Reaction mometasone 0.1 % topical cream 1 appl topical DAILY PRN Rash 07/17/21 06/17/23 Unknown History sertraline 100 mg tablet 200 mg PO DAILY 10/18/22 06/17/23 06/23/23 History 200 mg montelukast 10 mg tablet 10 mg PO BEDTIME 06/17/23 06/17/23 Unknown History naproxen 500 mg tablet 500 mg PO BID PRN pain 06/17/23 06/17/23 Unknown History olopatadine 0.1 % eye drops 1 drp ophthalmic (eye) DAILY 06/17/23 06/17/23 Unknown History oxycodone 5 mg tablet 5 mg PO BID pain 06/17/23 06/17/23 06/23/23 History 5 mg Exam Height,Weight and Vital Signs: Height 5 ft 2 in Weight 92.079 kg Last Vital Signs Temp 98.0 F 07/07/23 06:45 Pulse 58 07/07/23 06:45 Resp 16 07/07/23 06:45 BP 157/86 H 07/07/23 06:45 Pulse Ox 96 07/07/23 06:45 O2 Del Method Room Air 07/07/23 06:45 Airway Mallampati Class: II TM Dist: >3cm Neck ROM: Full Denture: Upper and Lower Heart: RRR Lungs: CTA Assessment and Plan Assessment Anesthesia Assessment: Anesthesia Plan Discussed Final Anesthetic Review Family History of Problems with Anesthesia: No History of Problems with Anesthesia: No NPO: Yes ASA Class: III Final Preanesthetic Review: Meds/Allgs Chart Reviewed, Consent Obtained/Reviewed and Anes Risks/Benef Reviewed Patient Risk: Intermediate Procedure Risk: Low Anesthetic Plan Anesthetic Plan: GA Disposition: Standard PACU
--- NOTE | 2023-07-07 08:58 | MHC.SHP ---
Pre-Procedural Eval Section A Date of Service: 07/07/23 The patient is an INPATIENT: No Changes since office visit: Yes Patient answered all questions The History & Physical has been completed within 30 days and I have reviewed it.: Yes Section B Chief Complaint: Varicose veins of other specified sites Allergies: Allergies Allergy/AdvReac Type Severity Reaction Status Date / Time cat dander [CAT DANDER] Allergy Intermediate skin rash Verified 07/03/23 10:43 mite-Dermatophagoides Allergy Intermediate watery Verified 07/03/23 10:43 farinae, skyla itchy [DUST MITES] eyes, sneezing Plan I have reviewed the history and physical and performed a pertinent physical examination on my patient. No changes have occurred unless specified. Time Spent With Patient Time: Total time managing care of this patient today ____ minutes.
--- NOTE | 2023-07-07 09:03 | P.OP_ITS ---
Operative Note Operative Note Date of Service: 07/07/23 Narrative: Operative note by [facility] Preoperative diagnosis: Left leg varicose veins with inflammation Postoperative diagnosis: Same Procedure: Ligation of venous clusters x3 Surgeon:Reddy Giron M.D. Installation Manager: None Anesthesia: General Specimens: 1 Drains: None Estimated blood loss: Minimal Indications: Pleasant 77-year-old female has had a prior history a venous ablation with Cyanoacralate ablation. She has developed recurrent ulcers and pains along that tract. She now presents for excision of the hardened areas and ulcerated areas. The patient has signed the informed consent after reviewing risks, complications, benefits, and alternatives previously discussed with the patient. The patient was given the opportunity to ask any additional questions or voice any concerns. All questions were answered to the patient's satisfaction. Procedure in detail: Patient was brought to the operating room prior to which a time-out was called for patient identification site verification. Left leg was prepped and draped in standard surgical fashion. Incision was carried out over the previous premarked great saphenous vein areas that were hardened and had ulcerations these were 3 separate incisions the incisions were carried out down to the previously ablated great saphenous vein. This was dissected free and these entire cluster of varicosities were removed. Electrocautery was used to you obtain hemostasis. The wound was irrigated out thoroughly. This was once again done in 3 separate locations 1 just below the knee 1 just above the knee and 1 in the middle 3rd of the thigh. Once this was all accomplished the wounds were irrigated out deep layer was reapproximated using 2 0 Polysorb and skin was closed with skin rebecca. Xeroform and a sterile dressing along with an Pranay wrap was placed. Patient tolerated the procedure well returned to recovery with stable vitals. Follow-up in the office along with instructions were given to the patient. This note is constructed using voice recognition software. While every effort has been made to ensure accuracy, explosive man errors may have been included. Thank you for allowing me to participate in the care of your patient. Yours sincerely, Reddy Giron MD, FACS, R.P.V.I.
[2023-07-07] MEDS: fentaNYL citrate/PF 100 MCG/2 ML VIAL 25 MCG IVPUSH ×2 (10:14→10:25)
[2023-07-07] MEDS: Acetaminophen 1,000 MG/100 ML PIGGYBACK 400 MG IV (10:23)
[2023-07-07] MEDS: oxyCODONE HCl Immed Release 5 MG TABLET PO (10:28)
== END 2023-07-07 11:50 | disposition home or self-care (01) ==
PROVIDERS: PCP Internal Medicine; Visit Provider Surgery Vascular Surgery
PROC: (CPT 37785; principal; 2023-07-07 07:30)
DX: I83.12 Varicose veins of left lower extremity with inflammation (principal); M79.662 Pain in left lower leg; M79.89 Other specified soft tissue disorders; D64.9 Anemia, unspecified; J45.909 Unspecified asthma, uncomplicated; E07.9 Disorder of thyroid, unspecified; E55.9 Vitamin D deficiency, unspecified; K21.9 Gastro-esophageal reflux disease without esophagitis; F32.A Depression, unspecified; Z85.3 Personal history of malignant neoplasm of breast; Z79.899 Other long term (current) drug therapy
CPT/HCPCS: 37785; 88304; J0131; J0690; J1100; J2250; J2405; J2704; J2795; J3010

== ENCOUNTER → 2023-07-07 05:57 | Outpatient (BNV) | payer OTHER, SELFPAY | PROVIDERS: PCP Internal Medicine; Visit Provider Surgery Vascular Surgery | DX: I83.12 Varicose veins of left lower extremity with inflammation (principal) | CPT/HCPCS: 37785 ==

== ENCOUNTER → 2023-07-10 10:19 | Outpatient (REF) | payer OTHER, SELFPAY ==
--- NOTE | 2023-07-10 10:21 | CA_ITS ---
Transthoracic Echocardiogram Patient (Last, First, Middle): Estefany Rowland M Gender: Female Date of : 1945 Age: 77 Procedure Date: 07/10/2023 Procedure Type: Transthoracic Echocardiogram Location: OP Height: 157.48 cm Weight: 93.9 kg BSA: 1.94 m2 Heart Rate: bpm BP: 128 / 92 mmHg Irrigation Foreman: DORA Referring MD: Niko Saha MD Symptoms: R01.1 - Cardiac murmur, unspecified Study Quality: Adequate ECG Rhythm: Sinus Conclusions: - The left ventricular systolic function is normal. The calculated ejection fraction is 68% by biplane method. - The basal inferior segment is hypokinetic. - No obvious valvular pathology seen on this study. - There is mild dilatation of the ascending aorta measuring 4.40 cm. Findings Left Ventricle Normal left ventricular cavity size. The left ventricular systolic function is normal. The calculated ejection fraction is 68% by biplane method. There is no evidence of regional wall motion abnormalities. Diastolic function is normal for age. There is mild septal asymmetric hypertrophy. LV peak GLS 23.8%. Wall Motion Rest Echo Findings The basal inferior segment is hypokinetic. Right Ventricle Normal right ventricular cavity size and systolic function. Atria The left atrium is mildly dilated. The right atrium is normal in size. Aortic Valve There is a normal trileaflet aortic valve. There is no aortic valve stenosis. There is no aortic valve regurgitation. Mitral Valve The mitral valve appears normal. There is no mitral valve regurgitation. There is no mitral valve stenosis. Pulmonic Valve The pulmonic valve is likely normal. Tricuspid Valve Normal tricuspid valve structure. There is mild tricuspid valve regurgitation. Mild pulmonary hypertension is present. Great Vessels There is mild dilatation of the ascending aorta measuring 4.40 cm. Small plaque is seen in the sino tubular ridge. Venous The inferior vena cava is normal in size and collapses greater than 50% with inspiration. Pericardium/Pleural There is no evidence of pericardial effusion. Prior Study Comparison Changes noted compared to prior study dated: 09/16/2017. see comments on wall motion and ascending aorta. Recommendations, Care & Conclusions No obvious valvular pathology seen on this study. Measurements 2D Linear Measurements IVSd: 1.22 0.6-0.9/0.6-1.0 cm LVIDd: 4.57 3.9-5.3/4.2-5.9 cm LVIDd Index: 2.36 2.4-3.2/2.2-3.1 cm/m2 LVIDs: 3.02 2.0-3.6 cm LVPWd: 0.98 0.7-1.1 cm LA Diam: 3.20 2.7-3.8/3.0-4.0 cm LAIDs Index: 1.65 1.5-2.3 cm/m2 LV Mass: 222.72 67-162/88-224 g LV Mass Index: 114.81 43-95/49-115 g/m2 LVOT Diam: 2.00 3.0+(-)1.3 cm 2D Systolic Function EF 4C: 70.80 >55% EF 2C: 64.30 >55% EF BiP: 68.00 >55% Mitral Valve MV Pk E: 0.70 MV PK A: 0.66 MV Decel Time: 303.00 E/A: 1.10 E'Lateral: 5.87 E'Medial: 4.03 E/E' Med: 17.30 E/E' Lat: 11.90 PHT: 89.00 MVA PHT: 2.47 Decel Burt: 2.30 Aortic Valve AoV Pk Doug: 1.99 AoV Mn Doug: 1.24 AoV VTI: 0.38 AoV Pk Grad: 16.00 Aov Mn Grad: 7.00 OMAIRA Cont.VTI: 2.27 LVOT LVOT Pk Doug: 1.50 LVOT Mn Doug: 0.94 LVOT VTI: 0.27 LVOT Pk Grad: 9.00 LVOT Mn Grad: 4.00 LVOT Diam: 2.00 LVOT Area: 3.14 Diastolic Function MV Pk E: 0.70 MV Pk A: 0.66 E/A: 1.10 E'Medial: 4.03 E/E' Med: 17.30 E' Laterial: 5.87 E/E' Lat: 11.90 Right Ventricle TAPSE (mm): 3.13 TVS' Doug: 20.70 Tricuspid Valve TR Pk Doug: 3.09 TR Pk Grad: 38.00 RA Press: 3.00 RVSP: 41.00 Great Vessels Aorta Sinus of Valsalva: 3.14 2.0-3.[address] Ridge: 2.55 1.7-3.4 cm Ao Asc: 4.40 2.1-3.4 cm Updated in Other Vendor System with Status of Final Timmy Sen MD electronically signed on 07/12/2023 12:57:14 PM with status of Final
== END ==
LOC: HO.CARD 10:19
PROVIDERS: PCP Internal Medicine; Visit Provider Internal Medicine
DX: R01.1 Cardiac murmur, unspecified (principal)
CPT/HCPCS: 93306; 93356

== ENCOUNTER → 2023-07-10 10:21 | Outpatient (BNV) | payer OTHER, SELFPAY | PROVIDERS: PCP Internal Medicine; Visit Provider Internal Medicine | DX: I36.1 Nonrheumatic tricuspid (valve) insufficiency (principal); R01.1 Cardiac murmur, unspecified | CPT/HCPCS: 93306 ==

== ENCOUNTER 2023-07-22 10:13 | Outpatient (AMB) | payer OTHER, SELFPAY ==
--- NOTE | 2023-07-22 10:17 | MHC.OFFVIS ---
Intake Vital Signs 07/22/23 10:21 Height 5 ft 2 in Weight 210 lb BMI 38.4 Intake Visit Reasons: 2 week follow up left leg vein ligation Intake Note: 2 week fallow up left leg vein ligation .Pt states that after she removed the rap pt she was fine but then a week later she notice she a hole in her leg and it was very painful and red and its draining a yellowish fluid. she says that she does keep messing with it even though shes told not to Manager [employer] Required: Yes Manager [employer] Name: kalpesh benson Information Interpreted: non-clinical & clinical Allergies cat dander [CAT DANDER] Allergy (Intermediate, Verified 07/22/23 10:22) skin rash mite-Dermatophagoides farinae, skyla [DUST MITES] Allergy (Intermediate, Verified 07/22/23 10:22) watery itchy eyes, sneezing HPI 2 week follow up left leg vein ligation HPI Details Very pleasant 77-year-old female presents for follow-up status post excision of left thigh mass. The upper to incisions she reports were doing relatively well but the bottom incision appears to be nonhealing and has serous drainage. She now presents for routine postoperative follow-up. [facility] Medical History HX: breast cancer Thyroid disease Depression Obesity (BMI 30-39.9) Vitamin D deficiency Migraine GERD without esophagitis Anemia Asthma Pure hypercholesterolemia Environmental allergies Venous (peripheral) insufficiency Complex renal cyst Morbid obesity with BMI of 40.0-44.9, adult Gall stones Mild major depression Dyslipidemia Tremor of left hand Non-toxic multinodular goiter Lumbar degenerative disc disease Renal calculi Insomnia Constipation due to opioid therapy Essential hypertension Surgical History Hx of biopsy H/O colonoscopy Hx of dilation and curettage History of esophagogastroduodenoscopy (EGD) Hx of hand surgery History of lumpectomy of left breast History of lithotripsy History of left knee replacement History of section Family History Father Medical history unknown Mother Lung cancer Colon cancer Social History Household Members: None Household Members Other:: daughter Housing: Apartment Are you a primary career development coordinator/teacher to a significant other at home: No Do you 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) Alcohol intake: never Patient Tobacco Use Status: Never used Tobacco e-Cigarette/Vaping Use: Never Used Second Hand Smoke Exposure: No service: No 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al status: unemployed and disabled 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 Cognitive needs: Yes Hearing needs: No Vision needs: Yes Review of Systems Const All systems reviewed & are unremarkable except as noted in HPI and below Reports no additional complaints ENT Reports Normal hearing present Card Denies chest pain, Denies chest pain at rest, Denies chest pain with activity and Denies pedal edema Resp Denies cough GI Denies abdominal pain Musc Denies abnormal gait, Denies muscle cramps and Denies radiating pain into limb Skin/Breast Denies skin ulcer and Denies wounds Neuro Reports Normal hearing present and Denies abnormal gait Psych Reports no additional complaints Physical Exam Vital Signs: BMI result Body Mass Index 38.4 Const General: cooperative, healthy appearing and comfortable Orientation/consciousness: oriented to person, oriented to place and oriented to time HEENT Head: Yes normal to inspection Neck Neck: Yes normal visual inspection Carotids: no bruits Chest Chest palpation & inspection: normal inspection of the chest Resp Effort & Inspection: normal respiratory effort and able to speak in complete sentences Auscultation: clear to auscultation bilaterally, no crackles, no rales, no rhonchi and no wheezes Cardio Rate: regular rate Rhythm: regular rhythm Heart sounds: S1 normal heart sound present and S2 normal heart sound present Bruits: no carotid bruits Peripheral pulses: Peripheral pulses 2+ throughout GI Inspection: Yes normal to inspection Skin Other: Left medial thigh upper 2 incisions appear well-healed lower incision has opened up there is serous drainage from there. All rebecca were removed. Wounds: no wounds Hair: normal Neuro General: oriented to person, oriented to place and oriented to time Cranial nerves: Yes CN's II-XII intact bilaterally and Yes Normal hearing present Cognition (Neuro): normal cognition Motor exam (neuro): 5/5 motor strength present throughout Extrem Other: venous exam: No significant superficial varicosities or spider telangiectasias, minimal edema General: No clubbing, No cyanosis and No edema Psych Appearance: grossly normal Mental Status: mental status grossly normal Speech and movement: Normal speech and movement present Assessment & Plan Assessment & Plan (1) Varicose veins of left lower extremity with inflammation: Comment: 05/07/2022 - left great saphenous vein Cyanoacralate ablation 01/17/2023 - left leg microphlebectomy Code(s): I83.12 - Varicose veins of left lower extremity with inflammation Plan: In short patient has had re-excision the great saphenous vein and tributaries. Upper incisions look would to be healing relatively well the concern is this lower incision where she developed a little bit of a hematoma and it has been poor to heal. She does have some serous drainage from there. Will continue with local wound care protective dressing and an Pranay wrap to be changed daily. She will follow up with us in approximately 2 weeks time to ensure that it continues to heal well. Thank you for allowing us to assist in her care. If there are any questions or concerns please do not hesitate to contact us. Coding Level of Care Code Est Pt Level 3 (23818) Diagnoses Varicose veins of left lower extremity with inflammation I83.12
[2023-07-22 10:21] VITALS: BMI 38.4
== END 2023-07-22 11:01 | disposition home or self-care (01) ==
PROVIDERS: PCP Internal Medicine; Visit Provider Surgery Vascular Surgery
DX: I83.12 Varicose veins of left lower extremity with inflammation (principal)
CPT/HCPCS: 99024

== ENCOUNTER → 2023-07-22 10:13 | Outpatient (BNVA) | payer OTHER, SELFPAY | PROVIDERS: PCP Internal Medicine; Visit Provider Surgery Vascular Surgery | DX: I83.12 Varicose veins of left lower extremity with inflammation (principal) | CPT/HCPCS: 99212 ==

== ENCOUNTER 2023-07-31 09:52 | Outpatient (AMB) | payer OTHER, SELFPAY ==
[2023-07-31 10:02] VITALS: BP 146/88; PULSE 71; O2SAT 98; BMI 38.4
--- NOTE | 2023-07-31 10:02 | A.OFFVIS_ITS ---
Intake Vital Signs 07/31/23 10:02 Height 5 ft 2 in Weight 210 lb BMI 38.4 BP 146/88 H Blood Pressure Location Lt brachial Position Sitting Pulse 71 Pulse Source Pulse Oximeter Pulse Oximetry (%) 98 Oxygen Delivery Method Room Air Intake Visit Reasons: Add-on , worsening wound/foul odor Intake Note: Pt presents to the office today for worsening wound. Pt states her left leg has a bloody discharge that is coming out of the incision site and states she has a hard lump on her left leg as well which is very painful. Allergies cat dander [CAT DANDER] Allergy (Intermediate, Verified 07/31/23 10:05) skin rash mite-Dermatophagoides farinae, skyla [DUST MITES] Allergy (Intermediate, Verified 07/31/23 10:05) watery itchy eyes, sneezing HPI Add-on , worsening wound/foul odor HPI Details Complex 76-year-old female presents for follow-up status post excision Cyanoacralate ablation great saphenous vein. She has developed significant hematoma and swelling of that left leg. Inferior incision has been slow to heal. There is actually serous drainage from there. That has been of concern to her. She now presents to us for follow-up evaluation. [facility] Medical History HX: breast cancer Thyroid disease Depression Obesity (BMI 30-39.9) Vitamin D deficiency Migraine GERD without esophagitis Anemia Asthma Pure hypercholesterolemia Environmental allergies Venous (peripheral) insufficiency Complex renal cyst Morbid obesity with BMI of 40.0-44.9, adult Gall stones Mild major depression Dyslipidemia Tremor of left hand Non-toxic multinodular goiter Lumbar degenerative disc disease Renal calculi Insomnia Constipation due to opioid therapy Essential hypertension Surgical History Hx of biopsy H/O colonoscopy Hx of dilation and curettage History of esophagogastroduodenoscopy (EGD) Hx of hand surgery History of lumpectomy of left breast History of lithotripsy History of left knee replacement History of section Family History Father Medical history unknown Mother Lung cancer Colon cancer Social History Household Members: None Household Members Other:: daughter Housing: Apartment Are you a primary multi care technician to a significant other at home: No 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) Alcohol intake: never Patient Tobacco Use Status: Never used Tobacco e-Cigarette/Vaping Use: Never Used Second Hand Smoke Exposure: No service: No 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al status: unemployed and disabled 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 Cognitive needs: Yes Hearing needs: No Vision needs: Yes Review of Systems Const All systems reviewed & are unremarkable except as noted in HPI and below Reports no additional complaints ENT Reports Normal hearing present Card Denies chest pain, Denies chest pain at rest, Denies chest pain with activity and Denies pedal edema Resp Denies cough GI Denies abdominal pain Musc Denies abnormal gait, Denies muscle cramps and Denies radiating pain into limb Skin/Breast Denies skin ulcer and Denies wounds Neuro Reports Normal hearing present and Denies abnormal gait Psych Reports no additional complaints Physical Exam Vital Signs: Last Vital Signs Pulse 71 07/31/23 10:02 BP 146/88 H 07/31/23 10:02 Pulse Ox 98 07/31/23 10:02 Oxygen Delivery Method Room Air 07/31/23 10:02 BMI result Body Mass Index 38.4 Const General: cooperative, healthy appearing and comfortable Orientation/consciousness: oriented to person, oriented to place and oriented to time HEENT Head: Yes normal to inspection Neck Neck: Yes normal visual inspection Carotids: no bruits Chest Chest palpation & inspection: normal inspection of the chest Resp Effort & Inspection: normal respiratory effort and able to speak in complete sentences Auscultation: clear to auscultation bilaterally, no crackles, no rales, no rhonchi and no wheezes Cardio Rate: regular rate Rhythm: regular rhythm Heart sounds: S1 normal heart sound present and S2 normal heart sound present Bruits: no carotid bruits Peripheral pulses: Peripheral pulses 2+ throughout GI Inspection: Yes normal to inspection Skin Other: Left medial thigh significant swelling. Below-knee approximately 3 cm opening with serous drainage. Wounds: no wounds Hair: normal Neuro General: oriented to person, oriented to place and oriented to time Cranial nerves: Yes CN's II-XII intact bilaterally and Yes Normal hearing present Cognition (Neuro): normal cognition Motor exam (neuro): 5/5 motor strength present throughout Extrem Other: venous exam: No significant superficial varicosities or spider telangiectasias, minimal edema General: No clubbing, No cyanosis and No edema Psych Appearance: grossly normal Mental Status: mental status grossly normal Speech and movement: Normal speech and movement present Assessment & Plan Assessment & Plan (1) Leg wound, left: Code(s): S81.802A - Unspecified open wound, left lower leg, initial encounter Qualifiers: Encounter type: subsequent encounter Qualified Code(s): S81.802D - Unspecified open wound, left lower leg, subsequent encounter Plan: In short patient has developed significant swelling and hematoma of that left leg. I did drain some of the serous fluid just by pressure. Local dressing an Pranay wrap was recommended. In addition I will give her a Medrol Dosepak to try to decrease some of that inflammation. She will follow up with us in 2 weeks time to ensure that this continues to improve. Thank you for allowing us to assist in her care. If there are any questions or concerns please do not hesitate to contact us. (2) Varicose veins of left lower extremity with inflammation: Comment: 05/07/2022 - left great saphenous vein Cyanoacralate ablation 01/17/2023 - left leg microphlebectomy Code(s): I83.12 - Varicose veins of left lower extremity with inflammation Plan: See above Medications: New methylprednisolone (Medrol (Josh)) PO PER PKG DIR 21 ea 0RF S81.802D - Unspecified open wound, left lower leg, subsequent encounter Coding Level of Care Code Est Pt Level 3 (99287) Diagnoses Wound of left lower extremity, subsequent encounter S81.802D Encounter type: subsequent encounter Varicose veins of left lower extremity with inflammation I83.12
== END 2023-07-31 10:30 | disposition home or self-care (01) ==
PROVIDERS: PCP Internal Medicine; Visit Provider Surgery Vascular Surgery
DX: S81.802D Unspecified open wound, left lower leg, subsequent encounter (principal); I83.12 Varicose veins of left lower extremity with inflammation
CPT/HCPCS: 99024

== ENCOUNTER → 2023-07-31 09:52 | Outpatient (BNVA) | payer OTHER, SELFPAY | PROVIDERS: PCP Internal Medicine; Visit Provider Surgery Vascular Surgery | DX: S81.802D Unspecified open wound, left lower leg, subsequent encounter (principal); I83.12 Varicose veins of left lower extremity with inflammation | CPT/HCPCS: 99212 ==

== ENCOUNTER 2023-08-14 08:41 | Outpatient (AMB) | payer OTHER, SELFPAY ==
[2023-08-14 08:55] VITALS: BMI 38.4
--- NOTE | 2023-08-14 08:55 | A.OFFVIS_ITS ---
Intake Vital Signs 08/14/23 08:55 Height 5 ft 2 in Weight 210 lb BMI 38.4 Intake Visit Reasons: 2 week leg check Intake Note: 2 week leg check incisions from Left LE ligation cluster 07/07/23 s/p Left Micro 01/17/23 and Left GSV Venaseal 05/07/22. At last appt pt was given a medrol denise. Alba, pt daughter states that hard lump that was on her inner thigh has reduced. Allergies cat dander [CAT DANDER] Allergy (Intermediate, Verified 08/14/23 09:01) skin rash mite-Dermatophagoides farinae, skyla [DUST MITES] Allergy (Intermediate, Verified 08/14/23 09:01) watery itchy eyes, sneezing HPI 2 week leg check HPI0 Details Very pleasant 77-year-old female presents for follow-up status post excision of center acrylate ablation great saphenous vein. She has these recurrent nonhealing ulcers which are new quite unusual. She has an upper thigh 1 which appears to be closing and 2 in the upper calf. There is some drainage and it appears to be slowly decreasing in size. She now presents for routine follow-up [facility] Medical History HX: breast cancer Thyroid disease Depression Obesity (BMI 30-39.9) Vitamin D deficiency Migraine GERD without esophagitis Anemia Asthma Pure hypercholesterolemia Environmental allergies Venous (peripheral) insufficiency Complex renal cyst Morbid obesity with BMI of 40.0-44.9, adult Gall stones Mild major depression Dyslipidemia Tremor of left hand Non-toxic multinodular goiter Lumbar degenerative disc disease Renal calculi Insomnia Constipation due to opioid therapy Essential hypertension Surgical History Hx of biopsy H/O colonoscopy Hx of dilation and curettage History of esophagogastroduodenoscopy (EGD) Hx of hand surgery History of lumpectomy of left breast History of lithotripsy History of left knee replacement History of section Family History Father Medical history unknown Mother Lung cancer Colon cancer Social History Household Members: None Household Members Other:: daughter Housing: Apartment Are you a primary manager intensive care to a significant other at home: No Do you 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) Alcohol intake: never Patient Tobacco Use Status: Never used Tobacco e-Cigarette/Vaping Use: Never Used Second Hand Smoke Exposure: No service: No 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al status: unemployed and disabled 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 Cognitive needs: Yes Hearing needs: No Vision needs: Yes Review of Systems Const Reports as per HPI ENT Reports no additional complaints Card Denies chest pain, Denies chest pain at rest and Denies chest pain with activity Resp Denies chest congestion and Denies cough GI Reports no additional complaints Musc Details: pain over varicosities, aching of lower extremities, swelling, cramping, heaviness and tiredness, itching Denies abnormal gait Skin/Breast Reports pruritus and Denies wounds Neuro Reports no additional complaints and Denies abnormal gait Psych Denies no additional complaints Physical Exam Vital Signs: BMI result Body Mass Index 38.4 Const General: cooperative, healthy appearing and comfortable Orientation/consciousness: oriented to person, oriented to place and oriented to time Neck Carotids: no bruits Chest Chest palpation & inspection: normal inspection of the chest and normal palpation of entire chest wall Resp Effort & Inspection: normal respiratory effort and able to speak in complete sentences Cardio Rate: regular rate Heart sounds: S1 normal heart sound present and S2 normal heart sound present Peripheral pulses: Peripheral pulses 2+ throughout GI Inspection: Yes normal to inspection Skin Other: Left thigh and calf 3 punctate open ulcerations the 1 in thigh appears to be closing well the 2 in the upper calf are open and does have some raised areas. These were cleansed. General skin exam: dry skin Neuro General: oriented to person, oriented to place and oriented to time Extrem Right lower extremity: full ROM, normal capillary refill and edema Left lower extremity: full ROM, normal capillary refill and edema Psych Mental Status: mental status grossly normal Assessment & Plan Assessment & Plan (1) Varicose veins of left lower extremity with inflammation: Comment: 05/07/2022 - left great saphenous vein Cyanoacralate ablation 01/17/2023 - left leg microphlebectomy Code(s): I83.12 - Varicose veins of left lower extremity with inflammation Plan: In short patient continues to have nonhealing ulcers the is venous ablation excision sites. Will continue with local wound care. We did discuss the importance of Pranay wraps. She will follow up with us in approximately 2 weeks time. Coding Level of Care Code Est Pt Level 3 (44190) Diagnoses Varicose veins of left lower extremity with inflammation I83.12
== END 2023-08-14 10:08 | disposition home or self-care (01) ==
PROVIDERS: PCP Internal Medicine; Visit Provider Surgery Vascular Surgery
DX: I83.12 Varicose veins of left lower extremity with inflammation (principal)
CPT/HCPCS: 99024

== ENCOUNTER → 2023-08-14 08:41 | Outpatient (BNVA) | payer OTHER, SELFPAY | PROVIDERS: PCP Internal Medicine; Visit Provider Surgery Vascular Surgery | DX: I83.12 Varicose veins of left lower extremity with inflammation (principal) | CPT/HCPCS: 99212 ==

== ENCOUNTER → 2023-08-28 10:35 | Outpatient (BNVA) | payer OTHER, SELFPAY | PROVIDERS: PCP Internal Medicine; Visit Provider Surgery Vascular Surgery | DX: I83.12 Varicose veins of left lower extremity with inflammation (principal) | CPT/HCPCS: 99212 ==

== ENCOUNTER → 2023-08-28 11:00 | Outpatient (AMB) | payer OTHER, SELFPAY ==
[2023-08-28 10:37] VITALS: BMI 38.4
--- NOTE | 2023-08-28 10:37 | MHC.OFFVIS ---
Intake Vital Signs 08/28/23 10:37 Height 5 ft 2 in Weight 210 lb BMI 38.4 Intake Visit Reasons: 2 week wound check Intake Note: 2 week follow up to check Left LE incisions s/p Left LE ligation cluster 07/07/23 and Left Micro 01/17/23 after reaction to adhesive from Left GSV Venaseal 05/07/22. Pt also has a hard lump on inner thigh. Pt daughter states that two of the incisions have healed and the one at the top/inner thigh is still leaking heavily but doesnt look bad. Changes dressing daily. The hard lump in her thigh is decreasing and may be the source of the drainage per daughter Accompanied by: Daughter Allergies cat dander [CAT DANDER] Allergy (Intermediate, Verified 08/28/23 10:43) skin rash mite-Dermatophagoides farinae, skyla [DUST MITES] Allergy (Intermediate, Verified 08/28/23 10:43) watery itchy eyes, sneezing HPI 2 week wound check HPI Details Very pleasant 77-year-old female presents for follow-up after excision of a reaction to Cyanoacralate ablation. Wounds continue to heal nicely. The lower 2 incisions have completely healed. She continues to have a hardened area along with some swelling and drainage in the left upper thigh. He continues to decrease in progress nicely [facility] Medical History HX: breast cancer Thyroid disease Depression Obesity (BMI 30-39.9) Vitamin D deficiency Migraine GERD without esophagitis Anemia Asthma Pure hypercholesterolemia Environmental allergies Venous (peripheral) insufficiency Complex renal cyst Morbid obesity with BMI of 40.0-44.9, adult Gall stones Mild major depression Dyslipidemia Tremor of left hand Non-toxic multinodular goiter Lumbar degenerative disc disease Renal calculi Insomnia Constipation due to opioid therapy Essential hypertension Surgical History Hx of biopsy H/O colonoscopy Hx of dilation and curettage History of esophagogastroduodenoscopy (EGD) Hx of hand surgery History of lumpectomy of left breast History of lithotripsy History of left knee replacement History of section Family History Father Medical history unknown Mother Lung cancer Colon cancer Social History Household Members: None Household Members Other:: daughter Housing: Apartment Are you a primary director career services to a significant other at home: No Do you 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) Alcohol intake: never Patient Tobacco Use Status: Never used Tobacco e-Cigarette/Vaping Use: Never Used Second Hand Smoke Exposure: No service: No 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al status: unemployed and disabled 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 Cognitive needs: Yes Hearing needs: No Vision needs: Yes Review of Systems Const All systems reviewed & are unremarkable except as noted in HPI and below Reports no additional complaints ENT Reports Normal hearing present Card Denies chest pain, Denies chest pain at rest, Denies chest pain with activity and Denies pedal edema Resp Denies cough GI Denies abdominal pain Musc Denies abnormal gait, Denies muscle cramps and Denies radiating pain into limb Skin/Breast Denies skin ulcer and Denies wounds Neuro Reports Normal hearing present and Denies abnormal gait Psych Reports no additional complaints Physical Exam Vital Signs: BMI result Body Mass Index 38.4 Const General: cooperative, healthy appearing and comfortable Orientation/consciousness: oriented to person, oriented to place and oriented to time HEENT Head: Yes normal to inspection Neck Neck: Yes normal visual inspection Carotids: no bruits Chest Chest palpation & inspection: normal inspection of the chest Resp Effort & Inspection: normal respiratory effort and able to speak in complete sentences Auscultation: clear to auscultation bilaterally, no crackles, no rales, no rhonchi and no wheezes Cardio Rate: regular rate Rhythm: regular rhythm Heart sounds: S1 normal heart sound present and S2 normal heart sound present Bruits: no carotid bruits Peripheral pulses: Peripheral pulses 2+ throughout GI Inspection: Yes normal to inspection Skin Other: Left thigh 0.2 cm opening with serous drainage. Some mild erythema Wounds: no wounds Hair: normal Neuro General: oriented to person, oriented to place and oriented to time Cranial nerves: Yes CN's II-XII intact bilaterally and Yes Normal hearing present Cognition (Neuro): normal cognition Motor exam (neuro): 5/5 motor strength present throughout Extrem Other: venous exam: No significant superficial varicosities or spider telangiectasias, minimal edema General: No clubbing, No cyanosis and No edema Psych Appearance: grossly normal Mental Status: mental status grossly normal Speech and movement: Normal speech and movement present Assessment & Plan Assessment & Plan (1) Varicose veins of left lower extremity with inflammation: Comment: 05/07/2022 - left great saphenous vein Cyanoacralate ablation 01/17/2023 - left leg microphlebectomy Code(s): I83.12 - Varicose veins of left lower extremity with inflammation Plan: In short incision line appears to be doing fairly well. Continues to decrease in size. There is some mild erythema and will start some antibiotics of Keflex. She will follow up with us in approximately 3 weeks time to ensure that this continues to progress well. Thank you for allowing us to assist in her care. If there are any questions or concerns please do not hesitate to contact us. Medications: New cephalexin 500 mg PO Q12H 20 caps 0RF Coding Level of Care Code Est Pt Level 4 (84321) Diagnoses Varicose veins of left lower extremity with inflammation I83.12
== END | disposition home or self-care (01) ==
PROVIDERS: PCP Internal Medicine; Visit Provider Surgery Vascular Surgery
DX: I83.12 Varicose veins of left lower extremity with inflammation (principal)
CPT/HCPCS: 99024

== ENCOUNTER 2023-09-23 10:21 | Outpatient (AMB) | payer OTHER, SELFPAY ==
--- NOTE | 2023-09-23 10:29 | MHC.OFFVIS ---
Intake Vital Signs 09/23/23 10:30 Height 5 ft 3 in Weight 210 lb BMI 37.2 Intake Visit Reasons: 3 week wound check Intake Note: 3 week follow up left LE non healing wound. S/p 07/07/23 ligation cluster and left micro 01/17/23. Patient's daughter states her wounds are all healed, hard lump on thigh is minimal. Accompanied by: Daughter Allergies cat dander [CAT DANDER] Allergy (Intermediate, Verified 08/28/23 10:43) skin rash mite-Dermatophagoides farinae, skyla [DUST MITES] Allergy (Intermediate, Verified 08/28/23 10:43) watery itchy eyes, sneezing HPI 3 week wound check HPI Details Very pleasant 77-year-old female presents for follow-up status post excision of left leg Cyanoacralate ablation. Wounds have gone on to heal. She has no significant drainage. Reports that the swelling and discomfort have improved. She now presents for routine follow-up. [facility] Medical History HX: breast cancer Thyroid disease Depression Obesity (BMI 30-39.9) Vitamin D deficiency Migraine GERD without esophagitis Anemia Asthma Pure hypercholesterolemia Environmental allergies Venous (peripheral) insufficiency Complex renal cyst Morbid obesity with BMI of 40.0-44.9, adult Gall stones Mild major depression Dyslipidemia Tremor of left hand Non-toxic multinodular goiter Lumbar degenerative disc disease Renal calculi Insomnia Constipation due to opioid therapy Essential hypertension Surgical History Hx of biopsy H/O colonoscopy Hx of dilation and curettage History of esophagogastroduodenoscopy (EGD) Hx of hand surgery History of lumpectomy of left breast History of lithotripsy History of left knee replacement History of section Family History Father Medical history unknown Mother Lung cancer Colon cancer Social History Household Members: None Household Members Other:: daughter Housing: Apartment Are you a primary acute care nurse practitioner to a significant other at home: No 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) Alcohol intake: never Patient Tobacco Use Status: Never used Tobacco e-Cigarette/Vaping Use: Never Used Second Hand Smoke Exposure: No service: No 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al status: unemployed and disabled 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 Cognitive needs: Yes Hearing needs: No Vision needs: Yes Review of Systems Const All systems reviewed & are unremarkable except as noted in HPI and below Reports no additional complaints ENT Reports Normal hearing present Card Denies chest pain, Denies chest pain at rest, Denies chest pain with activity and Denies pedal edema Resp Denies cough GI Denies abdominal pain Musc Denies abnormal gait, Denies muscle cramps and Denies radiating pain into limb Skin/Breast Denies skin ulcer and Denies wounds Neuro Reports Normal hearing present and Denies abnormal gait Psych Reports no additional complaints Physical Exam Vital Signs: BMI result Body Mass Index 37.2 Const General: cooperative, healthy appearing and comfortable Orientation/consciousness: oriented to person, oriented to place and oriented to time HEENT Head: Yes normal to inspection Neck Neck: Yes normal visual inspection Carotids: no bruits Chest Chest palpation & inspection: normal inspection of the chest Resp Effort & Inspection: normal respiratory effort and able to speak in complete sentences Auscultation: clear to auscultation bilaterally, no crackles, no rales, no rhonchi and no wheezes Cardio Rate: regular rate Rhythm: regular rhythm Heart sounds: S1 normal heart sound present and S2 normal heart sound present Bruits: no carotid bruits Peripheral pulses: Peripheral pulses 2+ throughout GI Inspection: Yes normal to inspection Skin Other: All skin incisions have gone on to heal Wounds: no wounds Hair: normal Neuro General: oriented to person, oriented to place and oriented to time Cranial nerves: Yes CN's II-XII intact bilaterally and Yes Normal hearing present Cognition (Neuro): normal cognition Motor exam (neuro): 5/5 motor strength present throughout Extrem Other: venous exam: No significant superficial varicosities or spider telangiectasias, minimal edema General: No clubbing, No cyanosis and No edema Psych Appearance: grossly normal Mental Status: mental status grossly normal Speech and movement: Normal speech and movement present Assessment & Plan Assessment & Plan (1) Varicose veins of left lower extremity with inflammation: Comment: 05/07/2022 - left great saphenous vein Cyanoacralate ablation 01/17/2023 - left leg microphlebectomy Code(s): I83.12 - Varicose veins of left lower extremity with inflammation Plan: Skin incisions have finally healed. We did discuss routine conservative measures including compression elevation and exercise. She will follow up with us on an as-needed basis. (2) Varicose veins of right lower extremity with inflammation: Comment: 04/12/2022 - right great saphenous vein Cyanoacralate ablation Code(s): I83.11 - Varicose veins of right lower extremity with inflammation Plan: See above Coding Level of Care Code Est Pt Level 3 (03347) Diagnoses Varicose veins of left lower extremity with inflammation I83.12 Varicose veins of right lower extremity with inflammation I83.11
[2023-09-23 10:30] VITALS: BMI 37.2
== END 2023-09-23 10:47 | disposition home or self-care (01) ==
PROVIDERS: PCP Internal Medicine; Visit Provider Surgery Vascular Surgery
DX: I83.12 Varicose veins of left lower extremity with inflammation (principal); I83.11 Varicose veins of right lower extremity with inflammation
CPT/HCPCS: 99024

== ENCOUNTER → 2023-09-23 10:21 | Outpatient (BNVA) | payer OTHER, SELFPAY | PROVIDERS: PCP Internal Medicine; Visit Provider Surgery Vascular Surgery | DX: I83.12 Varicose veins of left lower extremity with inflammation (principal); I83.11 Varicose veins of right lower extremity with inflammation | CPT/HCPCS: 99212 ==

== ENCOUNTER 2023-09-24 08:01 | Outpatient (AMB) | payer OTHER, SELFPAY ==
--- NOTE | 2023-09-24 08:13 | A.OFFPC_ITS ---
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: No Accompanied by: Daughter Allergies cat dander [CAT DANDER] Allergy (Intermediate, Verified 09/24/23 08:38) skin rash mite-Dermatophagoides farinae, skyla [DUST MITES] Allergy (Intermediate, Verified 09/24/23 08:38) watery itchy eyes, sneezing Medication List - Last Reconciled 09/24/23 by Kathy Bailon MD acetaminophen (Tylenol) 325 mg PO BID PRN albuterol sulfate 90 mcg/actuation 1 - 2 puffs PO Q4-6H PRN 30 days amlodipine 5 mg PO DAILY 90 days aspirin 81 mg PO DAILY 90 days atorvastatin 80 mg PO BEDTIME 90 days cholecalciferol (vitamin D3) 25 mcg PO DAILY docusate sodium 100 mg PO DAILY PRN 90 days epinephrine 0.3 mL IM DAILY PRN ferrous sulfate (Iron (ferrous sulfate)) 325 mg PO BID furosemide 40 mg PO DAILY 90 days gabapentin 100 mg PO TID 30 days lactulose 15 mL PO DAILY PRN losartan 100 mg PO DAILY 90 days mometasone 0.1% 1 appl topical DAILY PRN montelukast 10 mg PO BEDTIME bmzqoderdjiu-fzwqpxfi-eptxsx 1 tab PO DAILY nystatin 1 appl topical DAILY PRN 30 days olopatadine 0.1% 1 drp ophthalmic (eye) DAILY omega-3 fatty acids 1,000 mg PO DAILY omeprazole 20 mg PO DAILY 90 days oxycodone 5 mg PO BID 30 days polyethylene glycol 3350 17 grams PO DAILY 30 days sertraline 200 mg PO DAILY sumatriptan succinate 25 mg PO Q2-4H PRN 30 days trazodone 150 mg PO BEDTIME walker with wheels Tobacco use date assessed: 09/24/23 Fall risk assessment: No Falls in past year Last assessed Fall Risk: 09/24/23 Dental Screening Dental Screen Date: 09/24/23 Did you have a dental visit in the last 12 months?: Yes Did you have a dental problem in the last 6 months where you did not have access to dental care?: No Was dental information given to patient?: Patient has dentist HPI HPI Comments History of Present Illness Details This is a 77-year-old female with hypertension, dyslipidemia, mild major depression and right knee osteoarthritis that comes today for preop evaluation for right cataract extraction and intraocular lens implant scheduled for 10/05/2022. Her blood pressure was borderline normal to elevated and I will increase amlodipine from 5 mg to 10 mg. Lipid panel will be order. Depression stable with medications. On chronic opiate use for her right knee osteoarthritis and pain management contract was signed today. She is going for a low risk surgery. EKG and labs are still pending for clearance. Has for Mets of ADLs. Walks with a cane for gait stability due to knee pain. [facility] Medical History (Updated 09/24/23 @ 09:59 by Kathy Bailon MD) Invasive ductal carcinoma of left breast HX: breast cancer Thyroid disease Depression Obesity (BMI 30-39.9) Vitamin D deficiency Migraine GERD without esophagitis Anemia Asthma Pure hypercholesterolemia Environmental allergies Venous (peripheral) insufficiency Complex renal cyst Morbid obesity with BMI of 40.0-44.9, adult Gall stones Mild major depression Dyslipidemia Tremor of left hand Non-toxic multinodular goiter Lumbar degenerative disc disease Renal calculi Insomnia Constipation due to opioid therapy Essential hypertension Surgical History Hx of biopsy H/O colonoscopy Hx of dilation and curettage History of esophagogastroduodenoscopy (EGD) Hx of hand surgery History of lumpectomy of left breast History of lithotripsy History of left knee replacement History of section Family History Father Medical history unknown Mother Lung cancer Colon cancer Social History Household Members: None Household Members Other:: daughter Housing: Apartment Are you a primary director of healthcare systems to a significant other at home: No 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 1. Little interest or pleasure in doing things: not at all 2. Feeling down, depressed, or hopeless: several days 3. Trouble falling or staying asleep, or sleeping too much: several days 4. Feeling tired or having little energy: several days 5. Poor appetite or overeating: not at all 6. Feeling bad about yourself - or that you are a failure or have let yourself or your family down: not at all 7. Trouble concentrating on things, such as reading the newspaper or watching television: not at all 8. Moving or speaking so slowly that other people could have noticed. Or the opposite - being so fidgety or restless that you have been moving around a lot more than usual: not at all 9. Thoughts that you would be better off or of hurting yourself in some way: not at all Total score: 3 Depression Screening Interpretation: Negative Depression Screening Done: Yes 96359 - PHQ-9 Billing: Yes Source: Developed by Drs. Vishal Gonsales, Dione Horn, Eduar Steel and colleagues, with an educational josé miguel from [employer]. Thrive Questionnaire Date Thrive assessed: 09/24/23 I am a: Patient What is your living situation today?: I have a steady place to live Within the past 12 months, did the food you bought not last and you didn't have the money to get more?: Never true Within the past 12 months, did you worry whether your food would run out before you got money to buy more?: Never true Do you have trouble paying for medicines?: No Do you have trouble getting transportation to medical appointments?: No Do you have trouble paying your heating and electricity bill?: No Do you have trouble taking care of your child, family member or friend?: No Do you have trouble with day-to-day activities such as bathing, preparing meals, shopping, managing finances, etc.?: Yes Are you currently unemployed and looking for a job?: No Are you interested in more education?: No Please select the resources that you would like help with: None Currently or been in a relationship where the following occur: no concerns reported THRIVE Score: 0 AUDIT C Alcohol Use Questionnaire (AUDIT-C) 1. How often do you have a drink containing alcohol?: Never Total Score: 0 SHAMIR-7 AMB Questionnaire SHAMIR-7 Date SHAMIR - 7 assessed: 09/24/23 Feeling nervous, anxious, or on edge: 1 = Several days Not being able to stop or control worryin = Not at all Worrying too much about different things: 0 = Not at all Trouble relaxin = Not at all Being so restless that it is hard to sit still: 0 = Not at all Becoming easily annoyed or irritable: 0 = Not at all Feeling afraid as if something awful might happen: 0 = Not at all Total SHAMIR-7 score (0-4 normal; 5-9 mild; 10-14 moderate; 15-21 severe): 1 Source: Developed by Drs. Vishal Gonsales, Dione Horn, Eduar Steel and colleagues, with an educational josé miguel from [employer]. SHAMIR-7 Assessment Billing SHAMIR-7 Assessment Tool: SHAMIR-7 Assessment 47048 Review of Systems Const All systems reviewed & are unremarkable except as noted in HPI and below Eyes Reports no additional complaints, Denies change in vision and Denies other visual disturbances Card Denies chest pain at rest, Denies chest pain with activity, Denies edema, Denies irregular heart rhythm, Denies claudication, Denies dyspnea, Denies dyspnea on exertion, Denies orthopnea, Denies paroxysmal nocturnal dyspnea and Denies slow heart rate Resp Denies cough, Denies dyspnea and Denies dyspnea on exertion GI Denies abdominal pain, Denies change in bowel habits, Denies excessive flatus, Denies nausea and Denies vomiting Denies urinary incontinence, Denies urinary hesitancy and Denies urinary urgency Musc Denies abnormal gait, Denies atrophy, Denies deformity and Denies limited range of motion Skin/Breast Denies bleeding lesions, Denies changing lesions and Denies rash Neuro Denies abnormal gait, Denies behavioral changes and Denies lack of coordination Psych Denies behavioral changes Physical exam (Primary Care) Vital Signs: Last Vital Signs BP 140/90 H 09/24/23 09:52 BMI result Body Mass Index 37.7 Tobacco/Smoking Status: Tobacco use Status Tobacco use date assessed 09/24/23 09/24/23 08:20 Patient Tobacco Use Status Never used Tobacco 09/24/23 08:14 e-Cigarette/Vaping Use Never Used 09/24/23 08:14 PHQ-9: PHQ-9 Score PHQ-9: Total score 3 09/24/23 09:52 Depression Screening Interpretation: Negative Thrive Assessment: Date of Thrive Assessment Date Thrive assessed 09/24/23 09/24/23 08:22 Currently or been in a relationship where the following occur: no concerns reported Eyes General: appearance normal, both eyes and all related structures Eyelids: Yes eyelids normal Conjunctivae: conjunctivae normal Neck Neck: Yes normal visual inspection and Yes supple Resp Effort & Inspection: normal respiratory effort Auscultation: clear to auscultation bilaterally Cardio Jugular venous distension: no JVD Rate: regular rate Rhythm: regular rhythm Heart sounds: S1 normal heart sound present and S2 normal heart sound present Extrem General: Yes full ROM Assessment and Plan Assessment & Plan (1) Preoperative examination: Code(s): Z01.818 - Encounter for other preprocedural examination Plan: EKG and labs pending for clearance. (2) Osteoarthritis of right knee: Code(s): M17.11 - Unilateral primary osteoarthritis, right knee Qualifiers: Osteoarthritis type: primary Qualified Code(s): M17.11 - Unilateral primary osteoarthritis, right knee Plan: Continue opiates as needed. Pain management contract signed. (3) Essential hypertension: Code(s): I10 - Essential (primary) hypertension Plan: Continue lisinopril. Increase amlodipine to 10 mg. Blood pressure goal is equal or less than 130/80. (4) Dyslipidemia: Code(s): E78.5 - Hyperlipidemia, unspecified Plan: Continue statins. Repeat lipid panel. (5) Mild major depression: Code(s): F32.0 - Major depressive disorder, single episode, mild Plan: Continue SSRIs. Orders: Orders ECG 12 lead EKG 09/24/23 Z01.818 - Encounter for other preprocedural examination Complete Blood Count Auto Diff 09/24/23 D64.9 - Anemia, unspecified IRON PROFILE 09/24/23 D64.9 - Anemia, unspecified Lipid Panel 09/24/23 E78.5 - Hyperlipidemia, unspecified Vitamin B12 and Folate 09/24/23 E53.8 - Deficiency of other specified B group vitamins Vitamin D 25-OH Total 09/24/23 E55.9 - Vitamin D deficiency, unspecified Comprehensive [place]. Panel Fast 09/24/23 M19.90 - Unspecified osteoarthritis, unspecified site Medications: New amlodipine 10 mg PO DAILY 90 days 90 tabs 1RF I10 - Essential (primary) hypertension Refilled oxycodone Partial Fill upon patient request. 5 mg PO BID 30 days 60 tabs 0RF pain Discontinued amlodipine Discontinued Reason: Patient Completed Course 5 mg PO DAILY 90 days 90 tabs 3RF Coding Level of Care Code Est Pt Level 4 (20436) Diagnoses Preoperative examination Z01.818 Primary osteoarthritis of right knee M17.11 Osteoarthritis type: primary Essential hypertension I10 Dyslipidemia E78.5 Mild major depression F32.0 Additional Codes SHAMIR-7 Assessment Billing - SHAMIR-7 Assessment Tool: SHAMIR-7 Assessment 78494 ([id number]) Time Spent (min) 25
[2023-09-24 08:14] VITALS: BP 146/90; BMI 37.7
[2023-09-24 09:52] VITALS: BP 140/90
== END 2023-09-24 09:58 | disposition home or self-care (01) ==
PROVIDERS: PCP Internal Medicine; Visit Provider Physician Assistant
DX: M17.11 Unilateral primary osteoarthritis, right knee (principal); F32.0 Major depressive disorder, single episode, mild; I10 Essential (primary) hypertension; Z01.818 Encounter for other preprocedural examination; E78.5 Hyperlipidemia, unspecified
CPT/HCPCS: 99214

== ENCOUNTER 2023-09-25 08:31 | Outpatient (REF) | payer OTHER, SELFPAY ==
--- NOTE | 2023-09-25 08:41 | ECG_ITS ---
Test Reason : preop Blood Pressure : / mmHG Vent. Rate : 062 BPM Atrial Rate : 062 BPM P-R Int : 234 ms QRS Dur : 078 ms QT Int : 402 ms P-R-T Axes : 073 032 028 degrees QTc Int : 408 ms Sinus rhythm with marked sinus arrhythmia with 1st degree A-V block Otherwise normal ECG When compared with ECG of 09-JUL-2017 11:57, Nonspecific T wave abnormality no longer evident in Anterolateral leads QT has shortened Referred By: Kathy Bailon Electronically Signed By:JENNIE MANNING MD
[2023-09-25 08:52] LABS: MANUAL DIFF FLAG NO
[2023-09-25 09:33] LABS: Basophils Percent Auto 0.6 % (0-2); Eosinophils Absolute Auto 0.2 X10*3/uL (0.0-0.4); Eosinophils Percent Auto 3.5 % (0-4); Hematocrit 36.3 % (37.0-47.0); Hemoglobin 11.3 g/dl (12.0-16.0); Imm Gran Abs Auto 0.02 X10*3/uL (0.00-0.03); Imm Gran Pct Auto 0.4 % (0.0-0.4); Lymphocytes Absolute Auto 1.2 X10*3/uL (1.2-4.9); Lymphocytes Percent Auto 24.9 % (20-40); Mean Corpuscular HGB Conc 31.1 g/dl (31.0-35.0); Mean Corpuscular Hemoglobin 29.3 pg (27.0-33.0); Monocytes Absolute Auto 0.4 X10*3/uL (0.1-1.2); Monocytes Percent Auto 8.4 % (2-11); Neutrophils Absolute Auto 2.9 x10*3/uL (2.0-8.3); Neutrophils Percent Auto 62.2 % (45-73); Platelet Count 179 X10*3/uL (160-400); Red Blood Count 3.86 X10*6/uL (4.20-5.50); Red Cell Distribution Width 13.6 % (11.0-16.0); White Blood Count 4.6 X10*3/uL (4.8-10.8)
[2023-09-25 10:15] LABS: Alanine Aminotransferase 9 U/L (0-31); Albumin Level 4.1 g/dL (3.5-5.0); Alkaline Phosphatase 67 U/L (39-117); Anion Gap 12 (12-20); Aspartate Amino Transferase 16 U/L (5-31); Bilirubin Total 0.4 mg/dL (0.0-1.0); Blood Urea Nitrogen 12 mg/dL (9-16); Calcium 9.3 mg/dL (8.4-10.2); Carbon Dioxide 31 mmol/L (22-29); Chloride 103 mmol/L (96-108); Cholesterol 185 mg/dL (<200); Estimated Glomerular Filt Rate > 60; Glucose Fasting 81 mg/dL (60-99); HDL Cholesterol 51 mg/dL (>40); Iron 46 mcg/dL (30-160); LDL Cholesterol Calculated 120 mg/dL (<100); Percent Iron Saturation 20 % (15-50); Potassium 3.7 mmol/L (3.3-5.1); Sodium 142 mmol/L (135-145); Total Iron Binding Capacity 231 mcg/dL (228-428); Total Protein 7.5 g/dL (6.5-8.0); Triglycerides 70 mg/dL (<150); Unsaturated Iron Binding 185 ug/dL
[2023-09-25 10:33] LABS: Vitamin D 25-OH Total 59.9 ng/mL (>30)
[2023-09-25 10:37] LABS: Folate 15.1 ng/mL (> or = 4.0); Vitamin B12 806 pg/mL (200-900)
== END 2023-09-25 08:32 | disposition home or self-care (01) ==
LOC: HO.LAB 08:31
PROVIDERS: PCP Internal Medicine; Visit Provider Internal Medicine
DX: Z01.818 Encounter for other preprocedural examination (principal); E78.5 Hyperlipidemia, unspecified; E55.9 Vitamin D deficiency, unspecified; E53.8 Deficiency of other specified B group vitamins; D64.9 Anemia, unspecified; S81.802A Unspecified open wound, left lower leg, initial encounter; M19.90 Unspecified osteoarthritis, unspecified site; X58.XXXA Exposure to other specified factors, initial encounter; Y93.9 Activity, unspecified; Y92.9 Unspecified place or not applicable; Y99.9 Unspecified external cause status
CPT/HCPCS: 36415; 80053; 80061; 82306; 82607; 82746; 83540; 85025; 93005

== ENCOUNTER → 2023-09-25 08:41 | Outpatient (BNV) | payer OTHER, SELFPAY | PROVIDERS: PCP Internal Medicine; Visit Provider Internal Medicine Cardiovascular Disease | DX: I44.0 Atrioventricular block, first degree (principal) | CPT/HCPCS: 93010 ==

== ENCOUNTER 2023-10-06 05:47 | Day surgery (SDC) | payer OTHER, SELFPAY ==
[2023-09-30 09:03] VITALS: BMI 37.7
--- NOTE | 2023-10-03 10:29 | P.CONAN_ITS ---
Documented by User: Chloe Young NP 10/03/23 10:29 HPI - Anesthesia Eval Consult details Narrative: 77yo F for Right Cataract Extraction IOL Insertion Medically cleared Left eye 06/2023: Fent 50, Midaz 1 PMFSH Active Problems Active Problems: All Active Problems (Updated 09/24/23 @ 09:59 by Kathy Bailon MD) Insomnia (Acute) Osteoarthritis (Acute) Constipation (Acute) Cataract (Acute) Preoperative examination (Acute) Cardiac murmur (Acute) Left leg cellulitis (Acute) Left flank pain (Acute) Leg wound, left (Acute) Phlebitis of left leg (Acute) Shoulder pain, left (Acute) Left serous otitis media (Acute) Varicose veins of left lower extremity with inflammation (Acute) Physical exam (Acute) Left otitis media (Acute) Varicose veins of right lower extremity with inflammation (Acute) Osteoarthritis of right knee (Acute) UTI (urinary tract infection) (Acute) Weight loss (Acute) Neck pain (Acute) Osteoarthritis of right knee (Acute) Right knee pain (Acute) History of colon polyps (Acute) Diverticulosis (Acute) UTI (urinary tract infection) (Acute) Hypovitaminosis D (Acute) Depression (Acute) Obesity (BMI 30-39.9) (Acute) Vitamin D deficiency (Acute) Migraine (Acute) GERD without esophagitis (Acute) Anemia (Acute) Asthma (Acute) Pure hypercholesterolemia (Acute) Venous (peripheral) insufficiency (Acute) Complex renal cyst (Acute) Mild major depression (Acute) Renal calculi (Acute) Dyslipidemia (Acute) Tremor of left hand (Acute) Non-toxic multinodular goiter (Acute) Lumbar degenerative disc disease (Acute) Insomnia (Acute) Constipation due to opioid therapy (Acute) Essential hypertension (Acute) Past Medical History Medical History HX: breast cancer Thyroid disease Depression Obesity (BMI 30-39.9) Vitamin D deficiency Migraine GERD without esophagitis Anemia Asthma Pure hypercholesterolemia Environmental allergies Venous (peripheral) insufficiency Complex renal cyst Morbid obesity with BMI of 40.0-44.9, adult Gall stones Mild major depression Dyslipidemia Tremor of left hand Invasive ductal carcinoma of left breast Non-toxic multinodular goiter Lumbar degenerative disc disease Renal calculi Insomnia Constipation due to opioid therapy Essential hypertension Family History Family History Father Medical history unknown Mother Lung cancer Colon cancer Family history of problems with anesthesia: No Surgical History Surgical History History of left cataract surgery Hx of varicose vein stripping Hx of cystoscopy Hx of biopsy H/O colonoscopy Hx of dilation and curettage History of esophagogastroduodenoscopy (EGD) Hx of hand surgery History of lumpectomy of left breast History of lithotripsy History of left knee replacement History of section History of Problems with Anesthesia: No Social History Social History Household Members: None Household Members Other:: daughter Housing: Apartment Are you a primary physician primary care sports medicine to a significant other at home: No 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) Alcohol intake: never Patient Tobacco Use Status: Never used Tobacco e-Cigarette/Vaping Use: Never Used Second Hand Smoke Exposure: No Are you DNR?: No Advance Directives: No Advance Directives Information Provided: Yes Nutrition Risks: No Nutritional Risk service: No 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al status: unemployed and disabled 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 Cognitive needs: Yes Hearing needs: No Vision needs: Yes Meds Allergies Allergy/AdvReac Type Severity Reaction Status Date / Time cat dander [CAT DANDER] Allergy Intermediate skin rash Verified 10/06/23 07:05 mite-Dermatophagoides Allergy Intermediate watery Verified 10/06/23 07:05 farinae, skyla itchy [DUST MITES] eyes, sneezing Home Medications Medication Instructions Recorded Confirmed Last Taken Type acetaminophen 325 mg tablet 325 mg PO BID PRN Pain 05/22/20 09/30/23 Unknown History (Tylenol) ebqkvjwemmku-jwpxmtju-wkvyto tablet 1 tab PO DAILY 05/22/20 09/30/23 Unknown History omega-3 fatty acids 1,000 mg 1,000 mg PO DAILY 05/22/20 09/30/23 Unknown History capsule trazodone 150 mg tablet 150 mg PO BEDTIME 05/22/20 09/30/23 Unknown History epinephrine 0.3 mg/0.3 mL 0.3 ml IM DAILY PRN Allergic 07/17/21 09/30/23 Unknown History injection, auto-injector Reaction mometasone 0.1 % topical cream 1 appl topical DAILY PRN Rash 07/17/21 09/30/23 Unknown History sertraline 100 mg tablet 200 mg PO DAILY 10/18/22 09/30/23 06/23/23 History 200 mg montelukast 10 mg tablet 10 mg PO BEDTIME 06/17/23 09/30/23 Unknown History olopatadine 0.1 % eye drops 1 drp ophthalmic (eye) DAILY 06/17/23 09/30/23 Unknown History Exam Height,Weight and Vital Signs: Height 5 ft 2 in Weight 93.44 kg Assessment and Plan Assessment Anesthesia Assessment: Chart Reviewed Final Anesthetic Review Family History of Problems with Anesthesia: No History of Problems with Anesthesia: No Documented by User: Dillon Raymond MD 10/06/23 07:33 [facility] Past Medical History Medical History HX: breast cancer Thyroid disease Depression Obesity (BMI 30-39.9) Vitamin D deficiency Migraine GERD without esophagitis Anemia Asthma Pure hypercholesterolemia Environmental allergies Venous (peripheral) insufficiency Complex renal cyst Morbid obesity with BMI of 40.0-44.9, adult Gall stones Mild major depression Dyslipidemia Tremor of left hand Invasive ductal carcinoma of left breast Non-toxic multinodular goiter Lumbar degenerative disc disease Renal calculi Insomnia Constipation due to opioid therapy Essential hypertension Family History Family History Father Medical history unknown Mother Lung cancer Colon cancer Surgical History Surgical History History of left cataract surgery Hx of varicose vein stripping Hx of cystoscopy Hx of biopsy H/O colonoscopy Hx of dilation and curettage History of esophagogastroduodenoscopy (EGD) Hx of hand surgery History of lumpectomy of left breast History of lithotripsy History of left knee replacement History of section Social History Social History Household Members: None Household Members Other:: daughter Housing: Apartment Are you a primary physician primary care sports medicine to a significant other at home: No 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) Alcohol intake: never Patient Tobacco Use Status: Never used Tobacco e-Cigarette/Vaping Use: Never Used Second Hand Smoke Exposure: No Are you DNR?: No Advance Directives: No Advance Directives Information Provided: Yes Nutrition Risks: No Nutritional Risk service: No 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al status: unemployed and disabled 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 Cognitive needs: Yes Hearing needs: No Vision needs: Yes Meds Allergies Allergy/AdvReac Type Severity Reaction Status Date / Time cat dander [CAT DANDER] Allergy Intermediate skin rash Verified 10/06/23 07:05 mite-Dermatophagoides Allergy Intermediate watery Verified 10/06/23 07:05 farinae, skyla itchy [DUST MITES] eyes, sneezing Home Medications Medication Instructions Recorded Confirmed Last Taken Type acetaminophen 325 mg tablet 325 mg PO BID PRN Pain 05/22/20 09/30/23 Unknown History (Tylenol) acqiitnszgmi-oepscesm-dpvtze tablet 1 tab PO DAILY 05/22/20 09/30/23 Unknown History omega-3 fatty acids 1,000 mg 1,000 mg PO DAILY 05/22/20 09/30/23 Unknown History capsule trazodone 150 mg tablet 150 mg PO BEDTIME 05/22/20 09/30/23 Unknown History epinephrine 0.3 mg/0.3 mL 0.3 ml IM DAILY PRN Allergic 07/17/21 09/30/23 Unknown History injection, auto-injector Reaction mometasone 0.1 % topical cream 1 appl topical DAILY PRN Rash 07/17/21 09/30/23 Unknown History sertraline 100 mg tablet 200 mg PO DAILY 10/18/22 09/30/23 06/23/23 History 200 mg montelukast 10 mg tablet 10 mg PO BEDTIME 06/17/23 09/30/23 Unknown History olopatadine 0.1 % eye drops 1 drp ophthalmic (eye) DAILY 06/17/23 09/30/23 Unknown History Exam Airway Mallampati Class: II TM Dist: >3cm Neck ROM: Full Denture: Upper and Lower Loose/Missing/Broken Teeth: Yes Heart: [id number] Lungs: cta b/l Assessment and Plan Assessment Anesthesia Assessment: Anesthesia Plan Discussed Final Anesthetic Review NPO: Yes ASA Class: III Final Preanesthetic Review: No Changes in Pt Med Stat, Meds/Allgs Chart Reviewed, Consent Obtained/Reviewed and Anes Risks/Benef Reviewed Patient Risk: Intermediate Procedure Risk: Low Assessment/Block/Sedation in SS: Assess/Block/Sedation-SS Anesthetic Plan Anesthetic Plan: MAC: Disposition: Standard PACU
[2023-10-06] MEDS: Tetracaine HCl/PF 0.5% Oph Sol 4 ML DROPS 1 DROP EYE-RIGHT (06:20)
[2023-10-06] MEDS: Lactated Ringers 500 ML 50 ML IV (06:20)
[2023-10-06] MEDS: Tropicamide 1 % Ophth Sol 3 ML BTL 1 DROP EYE-RIGHT ×3 (06:21→06:34)
[2023-10-06] MEDS: Ketorolac Tromethamine 0.5% Op 5 ML DROPS 1 DROP EYE-RIGHT ×3 (06:21→06:34)
[2023-10-06] MEDS: Cyclopentolate 1 % Ophth Sol 2 ML DRPBTL 1 DROP EYE-RIGHT ×3 (06:21→06:34)
[2023-10-06] MEDS: Phenylephrine HCL 2.5% Oph SoL 2 ML BOTTLE 1 DROP EYE-RIGHT ×3 (06:21→06:34)
[2023-10-06 06:30] VITALS: BP 143/57; PULSE 66; RESP 18; TEMP 36.7; O2SAT 98
--- NOTE | 2023-10-06 07:37 | P.CONAN_ITS ---
[facility] Active Problems Active Problems: All Active Problems (Updated 09/24/23 @ 09:59 by Kathy Bailon MD) Insomnia (Acute) Osteoarthritis (Acute) Constipation (Acute) Cataract (Acute) Preoperative examination (Acute) Cardiac murmur (Acute) Left leg cellulitis (Acute) Left flank pain (Acute) Leg wound, left (Acute) Phlebitis of left leg (Acute) Shoulder pain, left (Acute) Left serous otitis media (Acute) Varicose veins of left lower extremity with inflammation (Acute) Physical exam (Acute) Left otitis media (Acute) Varicose veins of right lower extremity with inflammation (Acute) Osteoarthritis of right knee (Acute) UTI (urinary tract infection) (Acute) Weight loss (Acute) Neck pain (Acute) Osteoarthritis of right knee (Acute) Right knee pain (Acute) History of colon polyps (Acute) Diverticulosis (Acute) UTI (urinary tract infection) (Acute) Hypovitaminosis D (Acute) Depression (Acute) Obesity (BMI 30-39.9) (Acute) Vitamin D deficiency (Acute) Migraine (Acute) GERD without esophagitis (Acute) Anemia (Acute) Asthma (Acute) Pure hypercholesterolemia (Acute) Venous (peripheral) insufficiency (Acute) Complex renal cyst (Acute) Mild major depression (Acute) Renal calculi (Acute) Dyslipidemia (Acute) Tremor of left hand (Acute) Non-toxic multinodular goiter (Acute) Lumbar degenerative disc disease (Acute) Insomnia (Acute) Constipation due to opioid therapy (Acute) Essential hypertension (Acute) Past Medical History Medical History HX: breast cancer Thyroid disease Depression Obesity (BMI 30-39.9) Vitamin D deficiency Migraine GERD without esophagitis Anemia Asthma Pure hypercholesterolemia Environmental allergies Venous (peripheral) insufficiency Complex renal cyst Morbid obesity with BMI of 40.0-44.9, adult Gall stones Mild major depression Dyslipidemia Tremor of left hand Invasive ductal carcinoma of left breast Non-toxic multinodular goiter Lumbar degenerative disc disease Renal calculi Insomnia Constipation due to opioid therapy Essential hypertension Family History Family History Father Medical history unknown Mother Lung cancer Colon cancer Family history of problems with anesthesia: No Surgical History Surgical History History of left cataract surgery Hx of varicose vein stripping Hx of cystoscopy Hx of biopsy H/O colonoscopy Hx of dilation and curettage History of esophagogastroduodenoscopy (EGD) Hx of hand surgery History of lumpectomy of left breast History of lithotripsy History of left knee replacement History of section History of Problems with Anesthesia: No Social History Social History Household Members: None Household Members Other:: daughter Housing: Apartment Are you a primary pharmacy care coordinator to a significant other at home: No Do you presently have visiting nurse or other home services: 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) Alcohol intake: never Patient Tobacco Use Status: Never used Tobacco e-Cigarette/Vaping Use: Never Used Second Hand Smoke Exposure: No Are you DNR?: No Advance Directives: No Advance Directives Information Provided: Yes Nutrition Risks: No Nutritional Risk service: No 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al status: unemployed and disabled 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 Cognitive needs: Yes Hearing needs: No Vision needs: Yes Meds Allergies Allergy/AdvReac Type Severity Reaction Status Date / Time cat dander [CAT DANDER] Allergy Intermediate skin rash Verified 10/06/23 07:05 mite-Dermatophagoides Allergy Intermediate watery Verified 10/06/23 07:05 farinae, skyla itchy [DUST MITES] eyes, sneezing Active Medications: Current Medications Acetaminophen (Acetaminophen 325 Mg Tablet) 650 mg PO ONCE PRN PRN Reason: Pain, Mild (Pain Scale 1-3) Albuterol Sulfate (Albuterol Sulfate (0.083%) 2.5 Mg/3 Ml Vial.Neb) 2.5 mg INHALE ONCE PRN PRN Reason: Shortness of Breath/Wheezing Lactated Ringer's (Lr) 500 mls @ 50 mls/hr IV .Q10H [place] Stop: 10/06/23 15:59 Last Admin: 10/06/23 06:20 Dose: 50 mls/hr Ondansetron HCl (Ondansetron Hcl 4 Mg/2 Ml Vial) 4 mg IVPUSH ONCE PRN PRN Reason: Nausea and Vomiting Povidone Iodine (Povidone Iodine 5 % Ophth Soln 30 Ml Bottle) 1 appl EYE-RIGHT PREOP PRN PRN Reason: Pre-Op Surgical Implant Prophy Home Medications Medication Instructions Recorded Confirmed Last Taken Type acetaminophen 325 mg tablet 325 mg PO BID PRN Pain 05/22/20 09/30/23 Unknown History (Tylenol) krghziknbocz-uvfnmynd-ncvslu tablet 1 tab PO DAILY 05/22/20 09/30/23 Unknown History omega-3 fatty acids 1,000 mg 1,000 mg PO DAILY 05/22/20 09/30/23 Unknown History capsule trazodone 150 mg tablet 150 mg PO BEDTIME 05/22/20 09/30/23 Unknown History epinephrine 0.3 mg/0.3 mL 0.3 ml IM DAILY PRN Allergic 07/17/21 09/30/23 Unknown History injection, auto-injector Reaction mometasone 0.1 % topical cream 1 appl topical DAILY PRN Rash 07/17/21 09/30/23 Unknown History sertraline 100 mg tablet 200 mg PO DAILY 10/18/22 09/30/23 06/23/23 History 200 mg montelukast 10 mg tablet 10 mg PO BEDTIME 06/17/23 09/30/23 Unknown History olopatadine 0.1 % eye drops 1 drp ophthalmic (eye) DAILY 06/17/23 09/30/23 Unknown History Exam Height,Weight and Vital Signs: Height 5 ft 2 in Weight 93.44 kg Last Vital Signs Temp 98.1 F 10/06/23 06:30 Pulse 66 10/06/23 06:30 Resp 18 10/06/23 06:30 BP 143/57 H 10/06/23 06:30 Pulse Ox 98 10/06/23 06:30 O2 Del Method Room Air 10/06/23 06:30 Airway Mallampati Class: III TM Dist: >3cm Neck ROM: Full Denture: Upper and Lower Assessment and Plan Assessment Anesthesia Assessment: Anesthesia Plan Discussed and Chart Reviewed Final Anesthetic Review Family History of Problems with Anesthesia: No History of Problems with Anesthesia: No NPO: Yes ASA Class: III Final Preanesthetic Review: No Changes in Pt Med Stat, Meds/Allgs Chart Reviewed, Consent Obtained/Reviewed and Anes Risks/Benef Reviewed Patient Risk: Intermediate Procedure Risk: Low Anesthetic Plan Anesthetic Plan: MAC: Disposition: Standard PACU
--- NOTE | 2023-10-06 07:44 | MHC.SHP ---
Pre-Procedural Eval Section A - 24 Hr Update-Section A only Date of Service: 10/06/23 The patient is an INPATIENT: No Changes since office visit: No Cold of Flu in the past 2 weeks, No New Medical Problems, No Changes in Medication and No Patient answered all questions The patient has been examined within 24 hours of the surgical procedure. The History & Physical has been completed within 30 days and I have reviewed it.: Yes Section B - Complete if H&P > 30 days Chief Complaint: Age-related nuclear cataract, right eye Allergies: Allergies Allergy/AdvReac Type Severity Reaction Status Date / Time cat dander [CAT DANDER] Allergy Intermediate skin rash Verified 10/06/23 07:05 mite-Dermatophagoides Allergy Intermediate watery Verified 10/06/23 07:05 farinae, skyla itchy [DUST MITES] eyes, sneezing Plan Diagnosis/Plan: Unchanged I have reviewed the history and physical and performed a pertinent physical examination on my patient. No changes have occurred unless specified. Time Spent With Patient Time: Total time managing care of this patient today ____ minutes.
--- NOTE | 2023-10-06 07:45 | HO.PNOPHT ---
Ophthalmology Procedure Procedure Date of Service: 10/06/23 Ophthalmology Viscoelastic: Healon Duet Dual Pack Pro Ophthalmology Lenses: TECNIS [id number] (20.5) Procedure Notes: PREOPERATIVE DIAGNOSIS: Decreased visual acuity right eye secondary to cataract POSTOPERATIVE DIAGNOSIS: Same PROCEDURE: Right cataract extraction with intraocular lens insertion SURGEON: Last Guzmán M.D. ANESTHESIA: Topical/MAC ESTIMATED BLOOD LOSS: None COMPLICATIONS: None After obtaining informed consent, the patient was brought to the operating room suite and placed in the supine position. After adequate sedation per anesthesia, topical drops of Tetracaine were given to the right eye. The eye was then prepped and draped in the usual sterile fashion. The operating room microscope was then positioned over the operative eye and a lid speculum placed. A paracentesis was created. Viscoelastic was then instilled into the anterior chamber. A three plane incision was then created temporally, utilizing a 2.85 mm keratome. Capsulotomy forceps were then utilized to create a circular tear capsulotomy. Hydrodissection and hydrodelineation were carried out until adequate mobilization of the nucleus occurred. Phacoemulsification was then utilized to remove the dense central nucleus followed by removal of the cortical material utilizing the automated aspiration irrigation unit. Viscoelastic was instilled into the posterior capsular bag followed by placement of a posterior chamber intraocular lens without difficulty. The residual Viscoelastic was then removed utilizing the automated IA machine. The wound was checked and found to be watertight. The patient tolerated the procedure well and the lid speculum was removed. Intracameral injection of Vigamox 0.1 mL followed by a subtenon injection of Kenalog-40 0.2 mL were administered. The patient will be seen in the a.m.
[2023-10-06 08:58] VITALS: BP 127/71; PULSE 65; RESP 14; TEMP 36.1; O2SAT 100
== END 2023-10-06 09:21 | disposition home or self-care (01) ==
PROVIDERS: PCP Internal Medicine; Visit Provider Ophthalmology
PROC: (CPT 66985; principal; 2023-10-06 07:30)
DX: H25.11 Age-related nuclear cataract, right eye (principal); H52.4 Presbyopia; H35.033 Hypertensive retinopathy, bilateral; H35.09 Other intraretinal microvascular abnormalities; H18.413 Arcus senilis, bilateral; H11.153 Pinguecula, bilateral; I10 Essential (primary) hypertension; H04.123 Dry eye syndrome of bilateral lacrimal glands; H11.133 Conjunctival pigmentations, bilateral; J45.909 Unspecified asthma, uncomplicated; Z79.82 Long term (current) use of aspirin; Z79.899 Other long term (current) drug therapy
CPT/HCPCS: 66984; J2250; J3010; J3301; V2632

== ENCOUNTER 2023-10-23 10:10 | Outpatient (REF) | payer OTHER, SELFPAY ==
--- NOTE | ~2023-10-23 | MM_ITS ---
EXAMINATION: MM SCREENING DIGITAL BREAST TOMOSYNTHESIS, BILATERAL CLINICAL INFORMATION: Screening. Asymptomatic. Left breast cancer surgery in 2017. COMPARISON: Mammography: This study is compared with prior exams dating back to TECHNIQUE: Digital breast tomosynthesis is performed in both the craniocaudal and mediolateral oblique views along with computer-aided detection (CAD). Synthesized 2D images are generated from the tomosynthesis. FINDINGS: There are scattered areas of fibroglandular density (ACR BI-RADS breast composition Category b). There are no significant masses, abnormal calcifications, or other abnormalities. There are architectural changes in the upper outer quadrant of the left breast with associated, coarse, benign calcifications. These are related to prior surgery for cancer. MM/MM tomosynthesis screening BI IMPRESSION: No mammographic evidence of malignancy. ASSESSMENT: BI-RADS BI-RADS 2 - Benign Findings RECOMMENDATION: Routine annual mammography screening. 1 year F/U This examination should not preclude the clinical evaluation of a suspicious palpable abnormality. This patient's information was entered into a reminder system with a target due date for their next mammogram.
== END 2023-10-23 10:11 | disposition home or self-care (01) ==
LOC: HO.MAMMO 10:10
PROVIDERS: PCP Internal Medicine; Visit Provider Internal Medicine
DX: Z12.31 Encounter for screening mammogram for malignant neoplasm of breast (principal)
CPT/HCPCS: 77063; 77067

== ENCOUNTER → 2023-10-23 10:30 | Outpatient (BNV) | payer OTHER, SELFPAY | PROVIDERS: PCP Internal Medicine; Visit Provider Radiology Diagnostic Radiology | DX: Z12.31 Encounter for screening mammogram for malignant neoplasm of breast (principal) | CPT/HCPCS: 77063; 77067 ==

== ENCOUNTER 2023-11-18 10:37 | Outpatient (AMB) | payer OTHER, SELFPAY ==
[2023-11-18 10:42] VITALS: BP 128/80; BMI 37.5
--- NOTE | 2023-11-18 10:42 | A.OFFPC_ITS ---
Vital Signs 11/18/23 10:42 Height 5 ft 2 in Weight 205 lb BMI 37.5 BP 128/80 Blood Pressure Location Lt brachial Position Sitting Intake Visit Reasons: 6 MONTH F/U Intake Note: Patient here for a 6 month follow up, forgetfulness, memory loss Home Office Representative Required: No Accompanied by: Daughter Allergies cat dander [CAT DANDER] Allergy (Intermediate, Verified 11/18/23 10:54) skin rash mite-Dermatophagoides farinae, skyla [DUST MITES] Allergy (Intermediate, Verified 11/18/23 10:54) watery itchy eyes, sneezing Medication List - Last Reconciled 11/18/23 by Kathy Bailon MD acetaminophen (Tylenol) 325 mg PO BID PRN albuterol sulfate 90 mcg/actuation 1 - 2 puffs PO Q4-6H PRN 30 days amlodipine 10 mg PO DAILY 90 days aspirin 81 mg PO DAILY 90 days atorvastatin 80 mg PO BEDTIME 90 days cholecalciferol (vitamin D3) 25 mcg PO DAILY docusate sodium 100 mg PO DAILY PRN 90 days epinephrine 0.3 mL IM DAILY PRN ferrous sulfate (Iron (ferrous sulfate)) 325 mg PO BID furosemide 40 mg PO DAILY 90 days gabapentin 100 mg PO TID 30 days lactulose 15 mL PO DAILY PRN losartan 100 mg PO DAILY 90 days mometasone 0.1% 1 appl topical DAILY PRN montelukast 10 mg PO BEDTIME suwczgckzjxu-ccsfsctw-frdncp 1 tab PO DAILY nystatin 1 appl topical DAILY PRN 30 days olopatadine 0.1% 1 drp ophthalmic (eye) DAILY omega-3 fatty acids 1,000 mg PO DAILY omeprazole 20 mg PO DAILY 90 days oxycodone 5 mg PO BID 30 days polyethylene glycol 3350 17 grams PO DAILY 30 days sertraline 200 mg PO DAILY sumatriptan succinate 25 mg PO Q2-4H PRN 30 days trazodone 150 mg PO BEDTIME walker with wheels Tobacco use date assessed: 09/24/23 Fall risk assessment: 1 Fall in past year Last assessed Fall Risk: 11/18/23 Dental Screening Dental Screen Date: 09/24/23 HPI HPI Comments History of Present Illness Details This is a 77-year-old female with hypertension, pure hypercholester olemia and mild major depression that comes accompanied by daughter which is the space operations officer complaining of memory loss that started few months ago. She has no neurological deficit. Blood pressure stable. Cholesterol stable with medication. Depression well controlled with SSRIs. She does not remember if she took medications or not and repeats many things that she already said. I will order MRI of the brain and refer her to Neurology. Labs will also be order. She walks with a cane for gait stability due to right knee osteoarthritis. Gabapentin will be discontinued due to memory loss. She also complains of some dizziness but no weakness. [facility] Medical History (Updated 11/18/23 @ 10:58 by Kathy Bailon MD) HX: breast cancer Thyroid disease Depression Obesity (BMI 30-39.9) Vitamin D deficiency Migraine GERD without esophagitis Anemia Asthma Pure hypercholesterolemia Environmental allergies Venous (peripheral) insufficiency Complex renal cyst Morbid obesity with BMI of 40.0-44.9, adult Gall stones Mild major depression Dyslipidemia Tremor of left hand Invasive ductal carcinoma of left breast Non-toxic multinodular goiter Lumbar degenerative disc disease Renal calculi Insomnia Constipation due to opioid therapy Essential hypertension Surgical History History of left cataract surgery Hx of varicose vein stripping Hx of cystoscopy Hx of biopsy H/O colonoscopy Hx of dilation and curettage History of esophagogastroduodenoscopy (EGD) Hx of hand surgery History of lumpectomy of left breast History of lithotripsy History of left knee replacement History of section Family History Father Medical history unknown Mother Lung cancer Colon cancer Social History Household Members: None Household Members Other:: daughter Housing: Apartment Are you a primary managed care coordinator to a significant other at home: No Do you presently have visiting nurse 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 Vishal Gonsales, Dione Horn, Eduar Steel and colleagues, with an educational josé miguel from [employer]. Review of Systems Const All systems reviewed & are unremarkable except as noted in HPI and below Card Denies chest pain at rest, Denies chest pain with activity, Denies edema, Denies irregular heart rhythm, Denies claudication, Denies dyspnea, Denies dyspnea on exertion, Denies orthopnea, Denies paroxysmal nocturnal dyspnea and Denies slow heart rate Resp Denies cough, Denies dyspnea and Denies dyspnea on exertion Musc Denies abnormal gait Neuro Denies abnormal gait, Denies behavioral changes, Denies lack of coordination and Reports memory loss Psych Denies behavioral changes and Reports memory loss Physical exam (Primary Care) Vital Signs: Last Vital Signs BP 128/80 11/18/23 10:42 BMI result Body Mass Index 37.5 Tobacco/Smoking Status: Tobacco use Status Tobacco use date assessed 09/24/23 11/18/23 10:47 Patient Tobacco Use Status Never used Tobacco 11/18/23 10:47 e-Cigarette/Vaping Use Never Used 11/18/23 10:47 Thrive Assessment: Date of Thrive Assessment Date Thrive assessed 09/24/23 11/18/23 10:47 Const Limitations: ambulation with cane Resp Effort & Inspection: normal respiratory effort Auscultation: clear to auscultation bilaterally Cardio Jugular venous distension: no JVD Rate: regular rate Rhythm: regular rhythm Heart sounds: S1 normal heart sound present and S2 normal heart sound present Neuro General: no focal motor deficits Extrem General: Yes full ROM Assessment and Plan Assessment & Plan (1) Memory loss: Code(s): R41.3 - Other amnesia Plan: MRI of the brain ordered. Labs ordered. Referred to neurology. Discontinue gabapentin. (2) Mild major depression: Code(s): F32.0 - Major depressive disorder, single episode, mild Plan: Continue SSRIs. (3) Pure hypercholesterolemia: Code(s): E78.00 - Pure hypercholesterolemia, unspecified Plan: Continue statins. Repeat lipid panel. (4) Essential hypertension: Code(s): I10 - Essential (primary) hypertension Plan: Continue amlodipine and losartan. Blood pressure goal is equal or less than 130/80. Orders: Orders Thyroid Stimulating Hormone Today R41.3 - Other amnesia Lipid Panel Today E78.5 - Hyperlipidemia, unspecified MR head/brain wo con Today R41.3 - Other amnesia Comprehensive [place]. Panel Fast Today R41.3 - Other amnesia Vitamin B12 and Folate Today R41.3 - Other amnesia Complete Blood Count Auto Diff Today R41.3 - Other amnesia Referrals Neurology Referral R41.3 - Other amnesia Medications: Changed From ferrous sulfate (Iron (ferrous sulfate)) 325 mg PO BID 60 tabs 3RF To ferrous sulfate (Iron (ferrous sulfate)) 325 mg PO DAILY 30 tabs 3RF 30 days Discontinued gabapentin Discontinued Reason: Patient Completed Course 100 mg PO TID 30 days 90 caps 3RF Coding Level of Care Code Est Pt Level 4 (25395) Diagnoses Memory loss R41.3 Mild major depression F32.0 Pure hypercholesterolemia E78.00 Essential hypertension I10 Time Spent (min) 24
== END 2023-11-18 11:07 | disposition home or self-care (01) ==
PROVIDERS: PCP Internal Medicine; Visit Provider Internal Medicine
DX: R41.3 Other amnesia (principal); F32.0 Major depressive disorder, single episode, mild; E78.00 Pure hypercholesterolemia, unspecified; I10 Essential (primary) hypertension
CPT/HCPCS: 99214

== ENCOUNTER 2023-12-16 10:19 | Outpatient (AMB) | payer OTHER, SELFPAY ==
--- NOTE | 2023-12-16 10:20 | MHC.OFFVIS ---
Vital Signs 12/16/23 10:31 Height 5 ft 2 in Weight 206 lb BMI 37.7 BP 153/74 H Blood Pressure Location Lt brachial Position Sitting Pulse 67 Intake Visit Reasons: 1 yr breast check Intake Note: Patient is seen in office for yearly breast exam. Pt c/o: still feels scar tissue under the left breast, no other concerns mm:10/23/23 Sander Operator Required: No Oracle Scm Consultant: Oracle Scm Consultant Present Accompanied by: Family/Other Allergies cat dander [CAT DANDER] Allergy (Intermediate, Verified 11/18/23 10:54) skin rash mite-Dermatophagoides farinae, skyla [DUST MITES] Allergy (Intermediate, Verified 11/18/23 10:54) watery itchy eyes, sneezing HPI Comments Details: 77-year-old female patient returning for follow-up breast examination. She was identified as having a density in the left breast on mammogram and ultrasound in the 2 o'clock position felt to be highly suggestive of malignancy and underwent ultrasound guided core biopsy on 10/08/2016. This revealed invasive ductal carcinoma left breast with focal ductal carcinoma in situ, ER positive, ME positive, HER2 Carmenza positive. She underwent a needle localized lumpectomy with sentinel node biopsy on 10/30/2016 which revealed a 1.1 cm invasive ductal carcinoma, with 0/4 sentinel lymph nodes with malignancy (pT1c pN0 (i+) (sn)). She underwent adjuvant chemotherapy including one year of Herceptin followed by radiation therapy. She was treated with letrozole 2.5 mg p.o. for 5 years. She returns today for follow-up breast examination. She continues to complain of pain in the left lateral breast axilla. She also has complaints of arm pain left side. Her most recent mammogram on 10/23/2023 revealed no mammographic evidence of malignancy (BI-RADS 2). Continued annual screening is recommended. [facility] Medical History HX: breast cancer Thyroid disease Depression Obesity (BMI 30-39.9) Vitamin D deficiency Migraine GERD without esophagitis Anemia Asthma Pure hypercholesterolemia Environmental allergies Venous (peripheral) insufficiency Complex renal cyst Morbid obesity with BMI of 40.0-44.9, adult Gall stones Mild major depression Dyslipidemia Tremor of left hand Invasive ductal carcinoma of left breast Non-toxic multinodular goiter Lumbar degenerative disc disease Renal calculi Insomnia Constipation due to opioid therapy Essential hypertension Surgical History History of left cataract surgery Hx of varicose vein stripping Hx of cystoscopy Hx of biopsy H/O colonoscopy Hx of dilation and curettage History of esophagogastroduodenoscopy (EGD) Hx of hand surgery History of lumpectomy of left breast History of lithotripsy History of left knee replacement History of section Family History Father Medical history unknown Mother Lung cancer Colon cancer Social History Household Members: None Household Members Other:: daughter Housing: Apartment Are you a primary director of health care marketing to a significant other at home: No Do you presently have 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) Alcohol intake: never Patient Tobacco Use Status: Never used Tobacco e-Cigarette/Vaping Use: Never Used Second Hand Smoke Exposure: No service: No 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al status: unemployed and disabled 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 Cognitive needs: Yes Hearing needs: No Vision needs: Yes Review of Systems Const All systems reviewed & are unremarkable except as noted in HPI and below Card Denies dyspnea Resp Denies chest congestion, Denies cough, Denies hemoptysis and Denies dyspnea GI Reports no additional complaints Denies nipple discharge Musc Details: Arm pain left side Skin/Breast Denies breast swelling, Denies breast skin changes, Reports breast pain and Denies nipple discharge Edin/Lymph Denies lymphadenopathy Physical Exam Const General: no acute distress Nutritional Appearance: well nourished Orientation/consciousness: patient oriented x3 HEENT Head: Yes normocephalic and Yes atraumatic Neck Neck: Yes normal visual inspection and Yes no lymphadenopathy Chest Other: Left breast: No skin change, well-healed incision with scar retraction in the upper outer quadrant without underlying palpable mass, no nipple retraction, no nipple discharge, no palpable mass, no enlarged lymph nodes. Tender throughout the left chest especially with palpation of the chest wall in the upper outer quadrant and axilla. Right breast: No skin change, no nipple retraction, no nipple discharge, no palpable mass, no enlarged lymph nodes Resp Effort & Inspection: normal respiratory effort GI Inspection: Yes normal to inspection Skin General skin exam: no rashes or lesions noted Neuro General: patient oriented x3 Extrem Other: No evidence of lymphedema in the left arm or hand. General: Yes no clubbing, cyanosis or edema Assessment & Plan Assessment & Plan (1) Invasive ductal carcinoma of left breast: Code(s): C50.912 - Malignant neoplasm of unspecified site of left female breast Category: Medical Plan: 77-year-old female patient returning today for a 1 year follow-up breast examination following left breast lumpectomy and sentinel biopsy for invasive ductal carcinoma performed on 10/30/2016. She continues to report tenderness in the 11 o'clock position, with no suspicious findings on physical examination. The patient is tender throughout the left breast which may be the results of radiation and surgery. Her mammogram from 10/23/2023 revealed no mammographic evidence of malignancy (BI-RADS 2). I recommended follow-up examination in 1 year, sooner p.r.n.. Coding Level of Care Code Est Pt Level 3 (45893) Diagnoses Invasive ductal carcinoma of left breast C50.912
[2023-12-16 10:31] VITALS: BP 153/74; PULSE 67; BMI 37.7
== END 2023-12-16 10:40 | disposition home or self-care (01) ==
PROVIDERS: PCP Internal Medicine; Visit Provider Surgery
DX: N64.4 Mastodynia (principal); Z85.3 Personal history of malignant neoplasm of breast
CPT/HCPCS: 99213

== ENCOUNTER → 2023-12-16 10:19 | Outpatient (BNVA) | payer OTHER, SELFPAY | PROVIDERS: PCP Internal Medicine; Visit Provider Surgery | DX: Z85.3 Personal history of malignant neoplasm of breast (principal) | CPT/HCPCS: 99212 ==

== ENCOUNTER 2023-12-26 10:12 | Outpatient (REF) | payer OTHER, SELFPAY ==
--- NOTE | ~2023-12-26 | MR_ITS ---
EXAMINATION: MR BRAIN WITHOUT CONTRAST CLINICAL INFORMATION: Amnesia. COMPARISON: Brain MRI from 01/28/2020. TECHNIQUE: MRI of the brain was obtained using routine sequences without contrast. FINDINGS: No focal restricted diffusion is demonstrated to suggest acute or subacute cerebral ischemia. No evidence of acute or chronic hemorrhagic products on heme-sensitive imaging. Scattered and partially confluent periventricular, deep white matter, and brainstem T2 FLAIR hyperintensities consistent with moderate underlying microangiopathy. Proportional prominence of the ventricles and sulcal spaces without evidence of obstructive hydrocephalus. No abnormal mass effect. No midline shift. Normal appearance of the pituitary gland. The cerebellar tonsils are mildly low lying, positioned 0.3 cm below the foramen magnum. The CSF space of the foramen magnum is maintained. Normal arterial and venous vascular flow voids are present. Normal, homogeneous marrow signal. Moderate degenerative spondyloarthropathy of the visualized upper cervical spine. Mild mucosal thickening of the paranasal sinuses. No signal abnormalities within the mastoids. Bilateral lens extractions. MR/MR head/brain wo con IMPRESSION: 1. No acute intracranial abnormalities. 2. Moderate underlying microangiopathy and generalized cerebral volume loss.
== END 2023-12-26 10:13 | disposition home or self-care (01) ==
LOC: HO.MRI 10:12
PROVIDERS: PCP Internal Medicine; Visit Provider Internal Medicine
DX: R41.3 Other amnesia (principal)
CPT/HCPCS: 70551

== ENCOUNTER 2023-12-30 09:49 | Outpatient (REF) | payer OTHER, SELFPAY ==
--- NOTE | ~2023-12-30 | US_ITS ---
EXAMINATION: US RETROPERITONEAL LIMITED (RENAL ONLY) CLINICAL INFORMATION: Calculus of kidney. COMPARISON: CT abdomen and pelvis 06/17/2023. Renal ultrasound 12/23/2022 and 03/11/2022. X-ray KUB 12/20/2020. TECHNIQUE: Real-time imaging of the kidneys. Limited visualization due to bowel gas. FINDINGS: RIGHT KIDNEY: 11.4 x 6.1 x 6.4 cm (SAG x AP x TRV). No hydronephrosis. 9 mm right renal lower pole calculus. Renal cortical thickness is normal. Limited visualization. 3.9 cm midpole cyst with benign features. There is no indication for follow-up imaging. Additional smaller cysts. LEFT KIDNEY: 10.2 x 4.7 x 5.7 cm (SAG x AP x TRV). No hydronephrosis. No renal calculi. Renal cortical thickness is normal. Limited visualization. 2.9 cm midpole cyst with benign features. There is no indication for follow-up imaging. US/US renal BI IMPRESSION: 9 mm right renal lower pole calculus. No hydronephrosis.
== END 2023-12-30 09:50 | disposition home or self-care (01) ==
LOC: HO.US 09:49
PROVIDERS: PCP Internal Medicine; Visit Provider Urology
DX: N20.0 Calculus of kidney (principal)
CPT/HCPCS: 76775

== ENCOUNTER 2024-01-06 10:29 | Outpatient (AMB) | payer OTHER, SELFPAY ==
--- NOTE | 2024-01-06 10:39 | MHC.OFFVIS ---
Intake Visit Reasons: 1y/US(set) Intake Note: Patient is Present for Follow Up U/S Urology Medication: None Antibiotic Allergies:None Blood Thinners: Aspirin Allergies cat dander [CAT DANDER] Allergy (Intermediate, Verified 11/18/23 10:54) skin rash mite-Dermatophagoides farinae, skyla [DUST MITES] Allergy (Intermediate, Verified 11/18/23 10:54) watery itchy eyes, sneezing HPI Comments Details: Estefany ERIC is a very pleasant Sinhala speaking male. They are a patient of Dr Miller. They are seen in the office today for the following urologic conditions. - nephrolithiasis Yearly follow-up Discussed ultrasound finding Encourage fluids Continue yearly review till 5 years from last ESWL. Late 2025. Nephrolithiasis/Urolithiasis: Stopped vitamin B6 They are here for further evaluation of nephrolithiasis - discussed imaging result, encouraged fluids Urolithiasis was diagnosed 01/2017. Prior intervention - 12/22 ESWL right side, 05/25 ESWL right with stent The patient previously had kidney stones whose composition w unknown. Laboratory investigations include no recent labs. 24 Hour urine evaluation none on file Prior imaging includes 01/18 , a renal ultrasound right kidney 5 mm stone located in right lower pole . 3x 3cm cysts. Left kidney no evidence of 02/17 , a CT with , Right 6mm, non obstructing stone 09/21 , a renal ultrasound, showing radiodense stone(s), R 6 mm 08/22 , a renal ultrasound, bilateral cysts, right 4mm stone 09/23 , a renal ultrasound bilateral renal cysts, 6mm stone right side 12/24 renal ultrasound, persistent small stone right side, imbedded in tissue 12/25 renal ultrasound persistent 6 mm right-sided stone with cyst. Unchanged Hydronephrosis none. Current therapeutic plan will be hydration with interval imaging [facility] [place] Medical History HX: breast cancer Thyroid disease Depression Obesity (BMI 30-39.9) Vitamin D deficiency Migraine GERD without esophagitis Anemia Asthma Pure hypercholesterolemia Environmental allergies Venous (peripheral) insufficiency Complex renal cyst Morbid obesity with BMI of 40.0-44.9, adult Gall stones Mild major depression Dyslipidemia Tremor of left hand Invasive ductal carcinoma of left breast Non-toxic multinodular goiter Lumbar degenerative disc disease Renal calculi Insomnia Constipation due to opioid therapy Essential hypertension Surgical History History of left cataract surgery Hx of varicose vein stripping Hx of cystoscopy Hx of biopsy H/O colonoscopy Hx of dilation and curettage History of esophagogastroduodenoscopy (EGD) Hx of hand surgery History of lumpectomy of left breast History of lithotripsy History of left knee replacement History of section Family History Father Medical history unknown Mother Lung cancer Colon cancer Social History Household Members: None Household Members Other:: daughter Housing: Apartment Are you a primary customer care assistant to a significant other at home: No Do you presently have visiting nurse or other home services: Yes ([employer]) Alcohol intake: never Patient Tobacco Use Status: Never used Tobacco e-Cigarette/Vaping Use: Never Used Second Hand Smoke Exposure: No service: No 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al status: unemployed and disabled 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 Cognitive needs: Yes Hearing needs: No Vision needs: Yes Review of Systems Const Denies chills and Denies fever(s) Card Reports no additional complaints and Denies syncope Resp Denies cough GI Denies abdominal pain and Denies heartburn Reports as per HPI and Denies change in libido Neuro Denies syncope Psych Denies change in libido Endo Denies change in libido Physical Exam Const General: cooperative, healthy appearing, comfortable and no acute distress Orientation/consciousness: patient oriented x3 HEENT Face and sinus: Yes normal facial exam Mouth: moist mucous membranes Neck Neck: Yes normal visual inspection, Yes full ROM and Yes trachea midline Chest Chest palpation & inspection: normal inspection of the chest Resp Effort & Inspection: normal respiratory effort, able to speak in complete sentences and no respiratory distress GI Inspection: Yes normal to inspection Back/Spine/Pelvis Cervical Spine: normal cervical lordosis Thoracic/Lumbar Spine: thoracic and lumbar spine normal to inspection Skin General skin exam: no rashes or lesions noted Neuro General: patient oriented x3, gait normal, tone normal and moves all extremities Extrem General: Yes normal to inspection and Yes capillary refill normal Assessment & Plan Assessment & Plan (1) Renal calculi: Comment: 12/22 ESWL Right side 9mm - tissue imbedded Code(s): N20.0 - Calculus of kidney Category: Medical Plan Continue to follow q.12 [facility] Encouraged oral intake Orders: Orders US renal BI 12 Months N20.0 - Calculus of kidney Patient Instructions: Imaging studies, laboratory and physical exam results were discussed and reviewed in detail. No major barriers to patient understanding were identified. An opportunity to ask questions regarding the treatment plan was provided. All questions were answered. The patient expressed understanding and agreement with the above treatment plan. The patient is aware they should contact our office by phone for worsening of their current condition or the appearance of new urologic symptoms. Compliance is encouraged with any medications and followup testing that is ordered. It is a privilege to participate in the urologic care of your patient. If you have any questions or concerns regarding treatment for the above conditions, or other urologic issues, please do not hesitate to contact me. The office telephone contact is [phone]. This note is constructed using voice recognition software. While every effort has been made to ensure accuracy battery tester and repairer errors may have been included. Yours sincerely, Dr Chun Ocampo MD, [place] [facility] - Urology Providers of Expert, Compassionate Care for the Genitourinary System Coding Level of Care Code Est Pt Level 4 (27028) Diagnoses Renal calculi N20.0
== END 2024-01-06 11:18 | disposition home or self-care (01) ==
PROVIDERS: PCP Internal Medicine; Visit Provider Urology
DX: N20.0 Calculus of kidney (principal)
CPT/HCPCS: 99213

== ENCOUNTER → 2024-01-06 10:29 | Outpatient (BNVA) | payer OTHER, SELFPAY | PROVIDERS: PCP Internal Medicine; Visit Provider Urology | DX: N20.0 Calculus of kidney (principal) | CPT/HCPCS: 99212 ==

== ENCOUNTER 2024-01-16 09:47 | Outpatient (REF) | payer OTHER, SELFPAY ==
[2024-01-16 10:11] LABS: MANUAL DIFF FLAG NO
[2024-01-16 10:52] LABS: Basophils Percent Auto 0.6 % (0-2); Eosinophils Absolute Auto 0.2 X10*3/uL (0.0-0.4); Eosinophils Percent Auto 3.9 % (0-4); Hematocrit 36.8 % (37.0-47.0); Hemoglobin 11.7 g/dl (12.0-16.0); Imm Gran Abs Auto 0.01 X10*3/uL (0.00-0.03); Imm Gran Pct Auto 0.2 % (0.0-0.4); Lymphocytes Absolute Auto 1.5 X10*3/uL (1.2-4.9); Lymphocytes Percent Auto 29.8 % (20-40); Mean Corpuscular HGB Conc 31.8 g/dl (31.0-35.0); Mean Corpuscular Hemoglobin 30.8 pg (27.0-33.0); Mean Corpuscular Volume 96.8 fL (80.0-98.0); Mean Platelet Volume 11.1 fL (9.4-12.3); Monocytes Absolute Auto 0.4 X10*3/uL (0.1-1.2); Monocytes Percent Auto 8.5 % (2-11); Neutrophils Absolute Auto 2.9 x10*3/uL (2.0-8.3); Platelet Count 168 X10*3/uL (160-400); Red Cell Distribution Width 13.3 % (11.0-16.0); White Blood Count 5.2 X10*3/uL (4.8-10.8)
[2024-01-16 11:29] LABS: Alanine Aminotransferase 13 U/L (0-31); Albumin Level 4.1 g/dL (3.5-5.0); Alkaline Phosphatase 79 U/L (39-117); Anion Gap 11 (12-20); Aspartate Amino Transferase 17 U/L (5-31); Bilirubin Total 0.4 mg/dL (0.0-1.0); Blood Urea Nitrogen 12 mg/dL (9-16); Calcium 9.4 mg/dL (8.4-10.2); Carbon Dioxide 31 mmol/L (22-29); Chloride 103 mmol/L (96-108); Cholesterol 166 mg/dL (<200); Estimated Glomerular Filt Rate > 60; Glucose Fasting 86 mg/dL (60-99); HDL Cholesterol 54 mg/dL (>40); LDL Cholesterol Calculated 104 mg/dL (<100); Potassium 4.3 mmol/L (3.3-5.1); Sodium 141 mmol/L (135-145); Total Protein 7.1 g/dL (6.5-8.0); Triglycerides 44 mg/dL (<150)
[2024-01-16 11:48] LABS: Thyroid Stimulating Hormone 1.54 uIU/mL (0.32-4.0)
[2024-01-16 11:53] LABS: Vitamin B12 697 pg/mL (200-900)
== END 2024-01-16 09:48 | disposition home or self-care (01) ==
LOC: HO.LAB 09:47
PROVIDERS: PCP Internal Medicine; Visit Provider Internal Medicine
DX: E78.5 Hyperlipidemia, unspecified (principal); R41.3 Other amnesia; M19.90 Unspecified osteoarthritis, unspecified site
CPT/HCPCS: 36415; 80053; 80061; 82607; 82746; 84443; 85025

== ENCOUNTER 2024-02-02 09:37 | Outpatient (AMB) | payer OTHER, SELFPAY ==
[2024-02-02 09:39] VITALS: BP 124/72; PULSE 72; O2SAT 96; BMI 37.8
--- NOTE | 2024-02-02 09:39 | A.OFFPC_ITS ---
Vital Signs 02/02/24 09:39 Height 5 ft 2 in Weight 206 lb 8 oz BMI 37.8 BP 124/72 Blood Pressure Location Lt brachial Position Sitting Pulse 72 Pulse Source Pulse Oximeter Pulse Oximetry (%) 96 Oxygen Delivery Method Room Air Intake Visit Reasons: bp - see comments Tire Fixer Required: No Accompanied by: Daughter Allergies cat dander [CAT DANDER] Allergy (Intermediate, Verified 02/02/24 09:51) skin rash mite-Dermatophagoides farinae, skyla [DUST MITES] Allergy (Intermediate, Verified 02/02/24 09:51) watery itchy eyes, sneezing Medication List - Last Reconciled 02/02/24 by Kathy Bailon MD acetaminophen (Tylenol) 325 mg PO BID PRN albuterol sulfate 90 mcg/actuation 1 - 2 puffs PO Q4-6H PRN 30 days amlodipine 10 mg PO DAILY 90 days aspirin 81 mg PO DAILY 90 days atorvastatin 80 mg PO BEDTIME 90 days cholecalciferol (vitamin D3) 25 mcg PO DAILY docusate sodium 100 mg PO DAILY PRN 90 days epinephrine 0.3 mL IM DAILY PRN ferrous sulfate (Iron (ferrous sulfate)) 325 mg PO DAILY 30 days furosemide 40 mg PO DAILY 90 days lactulose 15 mL PO DAILY PRN losartan 100 mg PO DAILY 90 days mometasone 0.1% 1 appl topical DAILY PRN montelukast 10 mg PO BEDTIME [id number]-[id number] 1 tab PO DAILY nystatin 1 appl topical DAILY PRN 30 days olopatadine 0.1% 1 drp ophthalmic (eye) DAILY omega-3 fatty acids 1,000 mg PO DAILY omeprazole 20 mg PO DAILY 90 days oxycodone 5 mg PO BID 30 days polyethylene glycol 3350 17 grams PO DAILY 30 days sertraline 200 mg PO DAILY sumatriptan succinate 25 mg PO Q2-4H PRN 30 days trazodone 150 mg PO BEDTIME walker with wheels Tobacco use date assessed: 09/24/23 Fall risk assessment: No Falls in past year Last assessed Fall Risk: 02/02/24 Dental Screening Dental Screen Date: 09/24/23 HPI HPI Comments History of Present Illness Details This is an 78-year-old female with hypertension, pure hypercholesterolemia, mild major depression and opiate induced constipation that complains of left foot bunion that has been bothering her for few months. She walks with a cane for gait stability due to lumbar and knee osteoarthritis. Blood pressure stable. Cholesterol well controlled. Mild major depression is follow by counseling and psychiatry. Denies any chest pain or shortness on breath more than usual. Complains of constipation even with docusate and lactulose. I will keep her on MiraLax and add senna. [facility] Medical History (Updated 02/02/24 @ 10:01 by Kathy Bailon MD) HX: breast cancer Thyroid disease Depression Obesity (BMI 30-39.9) Vitamin D deficiency Migraine GERD without esophagitis Anemia Asthma Pure hypercholesterolemia Environmental allergies Venous (peripheral) insufficiency Complex renal cyst Morbid obesity with BMI of 40.0-44.9, adult Gall stones Mild major depression Dyslipidemia Tremor of left hand Invasive ductal carcinoma of left breast Non-toxic multinodular goiter Lumbar degenerative disc disease Renal calculi Insomnia Constipation due to opioid therapy Essential hypertension Surgical History History of left cataract surgery Hx of varicose vein stripping Hx of cystoscopy Hx of biopsy H/O colonoscopy Hx of dilation and curettage History of esophagogastroduodenoscopy (EGD) Hx of hand surgery History of lumpectomy of left breast History of lithotripsy History of left knee replacement History of section Family History Father Medical history unknown Mother Lung cancer Colon cancer Social History Household Members: None Household Members Other:: daughter Housing: Apartment Are you a primary manager wound care to a significant other at home: No Do you presently have visiting nurse or other home services: Yes ([employer]) Alcohol intake: never Patient Tobacco Use Status: Never used Tobacco e-Cigarette/Vaping Use: Never Used Second Hand Smoke Exposure: No service: No 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al status: unemployed and disabled 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 Vishal Gonsales, Dione Horn, Eduar Steel and colleagues, with an educational josé miguel from [employer]. Review of Systems Const All systems reviewed & are unremarkable except as noted in HPI and below Card Denies chest pain at rest, Denies chest pain with activity, Denies edema, Denies irregular heart rhythm, Denies claudication, Denies dyspnea, Denies dyspnea on exertion, Denies orthopnea, Denies paroxysmal nocturnal dyspnea and Denies slow heart rate Resp Denies cough, Denies dyspnea and Denies dyspnea on exertion Musc Denies atrophy, Denies deformity and Denies limited range of motion Physical exam (Primary Care) Vital Signs: Last Vital Signs Pulse 72 02/02/24 09:39 BP 124/72 02/02/24 09:39 Pulse Ox 96 02/02/24 09:39 Oxygen Delivery Method Room Air 02/02/24 09:39 BMI result Body Mass Index 37.8 BMI Assessment/Plan discussion: High BMI High, discussed plan: lifestyle, weight reduction, dietary and physical activity Tobacco/Smoking Status: Tobacco use Status Tobacco use date assessed 09/24/23 02/02/24 09:39 Patient Tobacco Use Status Never used Tobacco 02/02/24 09:39 e-Cigarette/Vaping Use Never Used 02/02/24 09:39 Thrive Assessment: Date of Thrive Assessment Date Thrive assessed 09/24/23 02/02/24 09:39 Const Limitations: ambulation with cane Resp Effort & Inspection: normal respiratory effort Auscultation: clear to auscultation bilaterally Cardio Jugular venous distension: no JVD Rate: regular rate Rhythm: regular rhythm Heart sounds: S1 normal heart sound present and S2 normal heart sound present Extrem General: Yes full ROM Assessment and Plan Assessment & Plan (1) Bunion, left foot: Code(s): M21.612 - Bunion of left foot Plan: Referred to Podiatry. (2) Pure hypercholesterolemia: Code(s): E78.00 - Pure hypercholesterolemia, unspecified Plan: Continue statins. Advise low-cholesterol diet. (3) Mild major depression: Code(s): F32.0 - Major depressive disorder, single episode, mild Plan: Continue sertraline. Follow-up with psychiatry and counseling. (4) Constipation due to opioid therapy: Comment: Stool softeners, high-fiber diet and fiber supplement, avoid constipation, Code(s): K59.03 - Drug induced constipation; T40.2X5A - Adverse effect of other opioids, initial encounter Plan: Discontinue docusate and lactulose. Start senna and MiraLax as needed. Start high-fiber diet. (5) Essential hypertension: Code(s): I10 - Essential (primary) hypertension Plan: Continue losartan and amlodipine. Blood pressure goal is equal or less than 130/80. Orders: Orders XR foot LT 2V Today M21.612 - Bunion of left foot Lipid Panel 4 Months E78.5 - Hyperlipidemia, unspecified IRON PROFILE 4 Months D64.9 - Anemia, unspecified Vitamin D 25-OH Total 4 Months E55.9 - Vitamin D deficiency, unspecified Complete Blood Count Auto Diff 4 Months D64.9 - Anemia, unspecified Vitamin B12 and Folate 4 Months E53.8 - Deficiency of other specified B group vitamins Comprehensive [place]. Panel Fast 4 Months G43.909 - Migraine, unspecified, not intractable, without status migrainosus Referrals Podiatry Referral M21.612 - Bunion of left foot Medications: New sennosides (senna) 8.6 mg PO BEDTIME PRN 30 tabs 6RF constipation 30 days Refilled polyethylene glycol 3350 17 grams PO DAILY 510 grams 6RF Constipation 30 days Discontinued lactulose Discontinued Reason: Patient Completed Course 15 mL PO DAILY PRN 1,373 mL 0RF for constipation docusate sodium Discontinued Reason: Patient Completed Course 100 mg PO DAILY 90 days PRN 90 caps 1RF for constipation Coding Level of Care Code Est Pt Level 4 (16485) Complex EM visit Add On G2211 Diagnoses Bunion, left foot M21.612 Pure hypercholesterolemia E78.00 Mild major depression F32.0 Constipation due to opioid therapy K59.03; T40.2X5A Essential hypertension I10 Time Spent (min) 22
== END 2024-02-02 10:09 | disposition home or self-care (01) ==
PROVIDERS: PCP Internal Medicine; Visit Provider Internal Medicine
DX: E78.00 Pure hypercholesterolemia, unspecified (principal); F32.0 Major depressive disorder, single episode, mild; M21.612 Bunion of left foot; K59.03 Drug induced constipation; T40.2X5A Adverse effect of other opioids, initial encounter; I10 Essential (primary) hypertension
CPT/HCPCS: 99214; G2211

== ENCOUNTER 2024-02-02 10:25 | Outpatient (REF) | payer OTHER, SELFPAY ==
--- NOTE | ~2024-02-02 | XR_ITS ---
EXAMINATION: XR FOOT, LEFT CLINICAL INFORMATION: Bunion of left foot. COMPARISON: None available. TECHNIQUE: AP, lateral, and oblique views of the left foot. FINDINGS: Diffuse demineralization. Small plantar and tiny dorsal calcaneal spurs. Radiopaque marker placed by technologist to indicate the area of concern as indicated by the patient adjacent to the first metatarsophalangeal joint. Moderate degenerative changes with joint space narrowing and hypertrophic change at the first metatarsophalangeal joint with medial soft tissue bunion. Cystic lucency along the medial base of the third digit proximal phalange. Soft tissue calcification along the medial aspect of the midfoot. Moderate degenerative changes with hypertrophic change at the tarsometatarsal joints. XR/XR foot LT 2V IMPRESSION: 1. Moderate degenerative changes first metatarsophalangeal joint. 2. Moderate degenerative changes at the tarsometatarsal joints. 3. Small plantar and tiny dorsal calcaneal spurs.
== END 2024-02-02 10:26 | disposition home or self-care (01) ==
LOC: HO.XRAY 10:25
PROVIDERS: PCP Internal Medicine; Visit Provider Internal Medicine
DX: M21.612 Bunion of left foot (principal)
CPT/HCPCS: 73620

== ENCOUNTER 2024-04-02 10:49 | Outpatient (AMB) | payer OTHER, SELFPAY ==
--- NOTE | 2024-04-02 10:56 | A.OFFVIS_ITS ---
Vital Signs 3 04/02/24 11:00 Height 5 ft 2 in Weight 205 lb 4.006 oz BMI 37.5 BP 118/70 Blood Pressure Location Rt brachial Position Sitting Pulse 68 Pulse Source Pulse Oximeter Intake Visit Reasons: NTMNG/CONFIRMED Intake Note: Patient present today for NTMNG office visit. Briquette Molder Required: Yes Briquette Molder Language: Electoral Officer Services: Briquette Molder Present Briquette Molder Name: Juliano Renee Information Interpreted: non-clinical & clinical Accompanied by: Daughter Allergies cat dander [CAT DANDER] Allergy (Intermediate, Verified 04/02/24 11:00) skin rash mite-Dermatophagoides farinae, skyla [DUST MITES] Allergy (Intermediate, Verified 04/02/24 11:00) watery itchy eyes, sneezing Medication List - Last Reconciled 04/02/24 by Sharmila Rutledge MD acetaminophen (Tylenol) 325 mg PO BID PRN albuterol sulfate 90 mcg/actuation 1 - 2 puffs PO Q4-6H PRN 30 days amlodipine 10 mg PO DAILY 90 days aspirin 81 mg PO DAILY 90 days atorvastatin 80 mg PO BEDTIME 90 days cholecalciferol (vitamin D3) 25 mcg PO DAILY epinephrine 0.3 mL IM DAILY PRN ferrous sulfate (Iron (ferrous sulfate)) 325 mg PO DAILY 30 days furosemide 40 mg PO DAILY 90 days losartan 100 mg PO DAILY 90 days mometasone 0.1% 1 appl topical DAILY PRN montelukast 10 mg PO BEDTIME foldkoncserd-rscdfrst-vlkust 1 tab PO DAILY nystatin 1 appl topical DAILY PRN 30 days olopatadine 0.1% 1 drp ophthalmic (eye) DAILY omega-3 fatty acids 1,000 mg PO DAILY omeprazole 20 mg PO DAILY 90 days oxycodone 5 mg PO BID 30 days polyethylene glycol 3350 17 grams PO DAILY 30 days sennosides (senna) 8.6 mg PO BEDTIME PRN 30 days sertraline 200 mg PO DAILY sumatriptan succinate 25 mg PO Q2-4H PRN 30 days trazodone 150 mg PO BEDTIME walker with wheels HPI Comments Details: 78 YO Female with a PMHx of a NTMNG who is seen in F/U for the same. She was previously followed by Dr. Alas and then Dr. Emmanuel, last seen 12/2022. She has a long history of a multinodular thyroid. TFTs have remained WNL at 1.54 from December 2023 She denies any compressive symptoms. Denies symptoms of hyper or hypothyroidism. Her CITY ATTORNEY is here at the visit, who is also her daughter, and she says sometimes her voice becomes was but she has no significant trouble swallowing. She eats well. HPI from prior visits She has a history of breast cancer with history of radiation therapy. She has had multiple prior FNA biopsies in the past, as listed below: 05/30/2016: 1) RLP 1.1 cm - Cytology benign 2) LMP 1.7 cm - Cytology benign 3) LMP 1.0 cm - Cytology benign 11/13/2017: 1) LMP 2.0 cm - Cytology benign 2) LLP 1.2 cm - nondiagnostic 3) RUP 1.0 cm - nondiagnostic 05/11/2020: RLP 1.5 cm thyroid nodule - Cytology benign On 10/25/[address] Emmanuel . Her US had revealed significant growth of her LMP 2.7 cm and her LMP 1.2 cm thyroid nodules. Cytology for her LMP 2.7 cm nodule was benign, but she was unable to tolerate FNA biopsy of her LMP 1.2 cm thyroid nodule. Ultrasound December 2022 showed increase in the size of a right lower pole nodule which now measures 1.7 cm, TR 4, solid very hypoechoic. Showed increase in the size of another 1.1 cm right midpole nodule. This might have been 1 of the ones that was biopsied before. Showed decrease in size of the 2.3 cm left midpole nodule which was previously 2.7 cm and previously biopsied and was benign. Also showed decrease in size of the left lower pole 0.9 cm nodule which was previously 1.2 cm in size. Showed another 1.1 left lower pole nodule which was TR 2 category. Subsequently she underwent FNA March 2023 of the right lower pole 1.[address] Emmanuel which was [place] category 2 benign. Review of systems Constitutional: no fevers, chills or weight loss HEENT: no changes in vision Cardiac: No chest pain, discomfort or palpitations. Pulmonary: Dyspnea on exertion GI:No abdominal pain, no nausea or vomiting, no anorexia, no blood in stool : no burning micturition, dysuria or increase in urinary frequency Neurologic: No dizziness, no weakness in extremities MSK: Does have some neck pain due to sleeping habits Physical exam General: sitting comfortably in no acute distress HEENT: normocephalic/atraumatic, moist oral mucosa Neck: supple, palpable bilateral thyroid nodules about 2 nodules palpable on the right side and 1 nodule palpable on the left side all measuring about 1 cm on my examination. Cardiac: normal heart sounds Pulm: normal breath sounds B/L, no added breath sounds Abd: not distended, no tenderness Extremities: no edema, no signs of myxedema Neuro: AAO x2, Speech: normal, no facial droop, moving all 4 extremities PFSH Medical History HX: breast cancer Thyroid disease Depression Obesity (BMI 30-39.9) Vitamin D deficiency Migraine GERD without esophagitis Anemia Asthma Pure hypercholesterolemia Environmental allergies Venous (peripheral) insufficiency Complex renal cyst Morbid obesity with BMI of 40.0-44.9, adult Gall stones Mild major depression Dyslipidemia Tremor of left hand Invasive ductal carcinoma of left breast Non-toxic multinodular goiter Lumbar degenerative disc disease Renal calculi Insomnia Constipation due to opioid therapy Essential hypertension Surgical History History of left cataract surgery Hx of varicose vein stripping Hx of cystoscopy Hx of biopsy H/O colonoscopy Hx of dilation and curettage History of esophagogastroduodenoscopy (EGD) Hx of hand surgery History of lumpectomy of left breast History of lithotripsy History of left knee replacement History of section Family History Father Medical history unknown Mother Lung cancer Colon cancer Social History Household Members: None Household Members Other:: daughter Housing: Apartment Are you a primary healthcare technician to a significant other at home: No Do you presently have visiting nurse or other home services: Yes (CITY ATTORNEY) Alcohol intake: never Patient Tobacco Use Status: Never used Tobacco e-Cigarette/Vaping Use: Never Used Second Hand Smoke Exposure: No service: No 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al status: unemployed and disabled 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 COMPARISON: Ultrasound thyroid 06/05/2021 and 02/29/2020. US-guided thyroid biopsy 10/25/2021. TECHNIQUE: Linear transducer grayscale and color Doppler examination with attention to the region of the thyroid. FINDINGS: SIZE: Measurements of the thyroid lobes and nodules are given in sagittal, anteroposterior and transverse dimensions respectively. Right Thyroid Lobe: 5.2 x 1.7 x 2.4 cm, volume 11.1 mL. Previously 5.0 x 1.4 x 2.9 cm, volume 11.1 mL. Parenchyma: The gland echotexture is heterogeneous. Thyroid vascularity is increased. Left Thyroid Lobe: 4.7 x 2.0 x 2.8 cm, volume 13.8 mL. Previously 4.6 x 1.9 x 2.3 cm, volume 12.2 mL. Parenchyma: The gland echotexture is heterogeneous. Thyroid vascularity is increased. Isthmus: 0.8 cm in maximum AP dimension. Previously 0.7 cm. Estimated total number of nodules greater than or equal to 1 cm: 3. Historian Research Assistant nodules are described as follows: 1. Location: Right mid. Size: 1.1 x 0.5 x 0.6 cm, volume 0.2 mL. Previously: 0.5 x 0.2 x 0.5 cm, volume 0.02 mL. Nodule characteristics: Composition: Solid (2). Echogenicity: Isoechoic (1). Shape: Not taller than wide (0). Margins: Smooth (0). Echogenic Foci: Macrocalcifications (1). ACR TI-RADS total points: 4 Previous: 4 ACR TI-RADS category: 4 Previous: 4 Significant change in size (>/= 20% in 2 dimensions and minimal increase of 2 mm or 50% or greater increase in volume): Yes Change in features: No Change in ACR TI-RADS risk category: No 2. Location: Right inferior. Size: 1.7 x 1.5 x 0.9 cm, volume 1.12 mL. Previously: 1.2 x 0.7 x 1.5 cm, volume 0.6 mL. Nodule characteristics: Composition: Solid (2). Echogenicity: Very hypoechoic (3). Shape: Not taller than wide (0). Margins: Smooth (0). Echogenic Foci: Macrocalcifications (1). ACR TI-RADS total points: 6 Previous: 4 ACR TI-RADS category: 5 Previous: 4 Significant change in size (>/= 20% in 2 dimensions and minimal increase of 2 mm or 50% or greater increase in volume): Yes Change in features: No Change in ACR TI-RADS risk category: No 3. Location: Left mid. Size: 2.3 x 2.2 x 1.5 cm, volume 3.7 mL. Previously: 2.3 x 1.3 x 2.7 cm, volume 4.6 mL. Nodule characteristics: Composition: Solid (2). Echogenicity: Hypoechoic (2). Shape: Not taller than wide (0). Margins: Smooth (0). Echogenic Foci: None (0). ACR TI-RADS total points: 4 Previous: 4 ACR TI-RADS category: 4 Previous: 4 Significant change in size (>/= 20% in 2 dimensions and minimal increase of 2 mm or 50% or greater increase in volume): No Change in features: No Change in ACR TI-RADS risk category: No 4. Location: Left mid. Size: 0.9 x 0.8 x 0.6 cm, volume 0.2 mL. Previously: 1.2 x 0.6 x 1.2 cm, volume 0.5 mL. Nodule characteristics: Composition: Solid (2). Echogenicity: Hypoechoic (2). Shape: Not taller than wide (0). Margins: Smooth (0). Echogenic Foci: None (0). ACR TI-RADS total points: 4 Previous: 4 ACR TI-RADS category: 4 Previous: 4 Significant change in size (>/= 20% in 2 dimensions and minimal increase of 2 mm or 50% or greater increase in volume): No Change in features: No Change in ACR TI-RADS risk category: No 5. Location: Left inferior. Size: 0.9 x 0.5 x 1.1 cm, volume 0.2 mL. Previously: Not seen on the previous study. Nodule characteristics: Composition: Mixed cystic and solid (1). Echogenicity: Isoechoic (1). Shape: Not taller than wide (0). Margins: Smooth (0). Echogenic Foci: None (0). ACR TI-RADS total points: 2 ACR TI-RADS category: 2 NODES: No lymphadenopathy is seen in the tissue surrounding the thyroid gland. US Thyroid: 06/05/2021 Right Thyroid Lobe: 5.0 x 1.4 x 2.9 cm, volume 11.1 mL. Previously 5.2 x 1.8 x 2.0 cm, volume 10.0 mL. Parenchyma: The gland echotexture is heterogeneous. Thyroid vascularity is normal. Left Thyroid Lobe: 4.6 x 1.9 x 2.7 cm, volume 12.2 mL. Previously 4.7 x 1.8 x 2.5 cm, volume 11.1 mL. Parenchyma: The gland echotexture is heterogeneous. Thyroid vascularity is normal. Isthmus: 0.7 cm in maximum AP dimension. Previously 0.7 cm. There are multiple bilateral solid and cystic nodules. Estimated total number of nodules greater than or equal to 1 cm: 3. Historian Research Assistant nodules are described as follows: 1.? Location: Right mid pole. ?? ? Size: 0.5 x 0.2 x 0.5 cm, volume 0.02 mL. ?? ? Previously: 0.5 x 0.4 x 0.5 cm, volume 0.05 mL. ?? ? Nodule characteristics: ?? ? Composition: Cannot be determined (2). ?? ? Echogenicity: Hyperechoic (1). ?? ? Shape: Not taller than wide (0). ?? ? Margins: Smooth (0). ?? ? Echogenic Foci: Macrocalcifications (1). ?? ? ACR TI-RADS total points: 4 Previous: Not applicable ?? ? ACR TI-RADS category: 4 Previous: Not applicable ? Significant change in size (>/= 20% in 2 dimensions and minimal increase of 2 mm or 50% or greater increase in volume): ?? ? Change in features: ?? ? Change in ACR TI-RADS risk category: Not applicable 2.? Location: Right lower pole. ?? ? Size: 1.2 x 0.7 x 1.5 cm, volume 0.57 mL. ?? ? Previously: 1.2 x 0.7 x 1.5 cm, volume 0.6 mL. ?? ? Nodule characteristics: ?? ? Composition: Solid/almost completely solid (2). ?? ? Echogenicity: Hypoechoic (2). ?? ? Shape: Not taller than wide (0). ?? ? Margins: Smooth (0). ?? ? Echogenic Foci: None (0). ?? ? ACR TI-RADS total points: 4 Previous: Not applicable ?? ? ACR TI-RADS category: 4 Previous: Not applicable ? Significant change in size (>/= 20% in 2 dimensions and minimal increase of 2 mm or 50% or greater increase in volume): ?? ? Change in features: ?? ? Change in ACR TI-RADS risk category: Not applicable 3.? Location: Left mid pole. ?? ? Size: 2.5 x 1.3 x 2.7 cm, volume 4.6 mL. ?? ? Previously: 2.3 x 1.3 x 1.9 cm, volume 3.0 mL. ?? ? Nodule characteristics: ?? ? Composition: Solid (2). ?? ? Echogenicity: Hypoechoic (2). ?? ? Shape: Not taller than wide (0). ?? ? Margins: Smooth (0). ?? ? Echogenic Foci: None (0). ?? ? ACR TI-RADS total points: 4 Previous: Not applicable ?? ? ACR TI-RADS category: 4 Previous: Not applicable ? Significant change in size (>/= 20% in 2 dimensions and minimal increase of 2 mm or 50% or greater increase in volume): ?? ? Change in features: ?? ? Change in ACR TI-RADS risk category: Not applicable 4.? Location: Left mid pole. ?? ? Size: 1.2 x 0.6 x 1.2 cm, volume 0.47 mL. ?? ? Previously: 0.8 x 0.6 x 0.9 cm, volume 0.25 mL. ?? ? Nodule characteristics: ?? ? Composition: Solid (2). ?? ? Echogenicity: Hypoechoic (2). ?? ? Shape: Not taller than wide (0). ?? ? Margins: Smooth (0). ?? ? Echogenic Foci: None (0). ?? ? ACR TI-RADS total points: 4 Previous: Not applicable ?? ? ACR TI-RADS category: 4 Previous: Not applicable ? Significant change in size (>/= 20% in 2 dimensions and minimal increase of 2 mm or 50% or greater increase in volume): ?? ? Change in features: ?? ? Change in ACR TI-RADS risk category: Not applicable NODES: No lymphadenopathy Assessment & Plan Assessment & Plan (1) Multinodular goiter: Code(s): E04.2 - Nontoxic multinodular goiter Category: Medical Plan: Patient with history of radiation to her neck due to history of breast cancer, with no family history of thyroid cancer, who is coming in for follow up of nontoxic multinodular goiter. She has had several FNA biopsies of these multiple nodules in the past, with most of them yielding benign results. She had 2 nondiagnostic results back in 2017. Most recently in December 2022 some of her nodules have shown growth and she underwent biopsy of the 1.7 cm right lower lobe nodule which was benign [place] category 2. At this time these nodules have been followed at least since 2015 when she had her 1st biopsies. It would be 10 years in 2 years. We will repeat an ultrasound now, however if her nodules are stable in size, the next ultrasound would be in 2 years in summer/fall of 2025, and at that time she would have completed 10 years of follow up of these nodules with multiple benign cytology and so we will stop repeating any ultrasounds unless she has any clinical changes at the 10 year minh. She is biochemically euthyroid. She does not have any bothersome compressive symptoms. Plan: -ordered repeat thyroid ultrasound now All questions were answered. Patient and her daughter verbalized understanding and agree with the plan. Plan I spent 30 minutes in reviewing the record, seeing the patient and documenting in the medical record. Orders: Orders 2 US thyroid Today E04.2 - Nontoxic multinodular goiter Patient Instructions: do ultrasound of the thyroid hacer ultrasonido de la tiroides Coding Level of Care Code Est Pt Level 4 (22482) Diagnoses Multinodular goiter E04.2 Time Spent (min) 30
[2024-04-02 11:00] VITALS: BP 118/70; PULSE 68; BMI 37.5
== END 2024-04-02 11:25 | disposition home or self-care (01) ==
PROVIDERS: PCP Internal Medicine; Visit Provider Student in an Organized Health Care Education/Training Program
DX: E04.2 Nontoxic multinodular goiter (principal)
CPT/HCPCS: 99214

== ENCOUNTER → 2024-04-02 10:49 | Outpatient (BNVA) | payer OTHER, SELFPAY | PROVIDERS: PCP Internal Medicine; Visit Provider Student in an Organized Health Care Education/Training Program | DX: E04.2 Nontoxic multinodular goiter (principal) | CPT/HCPCS: 99212 ==

== ENCOUNTER 2024-04-12 12:06 | Outpatient (REF) | payer OTHER, SELFPAY ==
--- NOTE | ~2024-04-12 | US_ITS ---
EXAMINATION: US THYROID CLINICAL INFORMATION: Nontoxic multinodular goiter. COMPARISON: Ultrasound-guided fine-needle aspiration 03/27/2023. Thyroid ultrasound 12/03/2022. Ultrasound-guided fine-needle aspiration 10/25/2021. Thyroid ultrasound 06/05/2021. TECHNIQUE: Linear transducer grayscale and color Doppler examination with attention to the region of the thyroid. FINDINGS: SIZE: Measurements of the thyroid lobes and nodules are given in sagittal, anteroposterior and transverse dimensions respectively. Right Thyroid Lobe: 4.9 x 1.7 x 2.6 cm, volume 11.6 mL. Previously 5.2 x 1.7 x 2.4 cm, volume 11.1 mL. Parenchyma: The gland echotexture is heterogeneous. Thyroid vascularity is normal. Left Thyroid Lobe: 4.5 x 2.5 x 2.9 cm, volume 16.9 mL. Previously 4.7 x 2.0 x 2.8 cm, volume 13.8 mL. Parenchyma: The gland echotexture is heterogeneous. Thyroid vascularity is increased. Isthmus: 0.7 cm in maximum AP dimension. Previously 0.8 cm. Estimated total number of nodules greater than or equal to 1 cm: 3. Japanese Tutor nodules are described as follows: 1. Location: Right mid. Size: 0.7 x 0.3 x 0.7 cm, volume 0.1 mL. Previously: 1.1 x 0.5 x 0.6 cm, volume 0.2 mL. Nodule characteristics: Composition: Solid (2). Echogenicity: Isoechoic (1). Shape: Not taller than wide (0). Margins: Ill-defined (0). Echogenic Foci: Macrocalcifications (1). ACR TI-RADS total points: 4 Previous: 4 ACR TI-RADS category: 4 Previous: 4 Significant change in size (>/= 20% in 2 dimensions and minimal increase of 2 mm or 50% or greater increase in volume): No Change in features: No Change in ACR TI-RADS risk category: No 2. Location: Right inferior. Size: 1.5 x 0.8 x 0.9 cm, volume 0.6 mL. Previously: 1.7 x 1.5 x 0.9 cm, volume 1.12 mL. Nodule characteristics: Composition: Solid (2). Echogenicity: Very hypoechoic (3). Shape: Not taller than wide (0). Margins: Smooth (0). Echogenic Foci: Macrocalcifications (1). ACR TI-RADS total points: 6 Previous: 6 ACR TI-RADS category: 4 Previous: 4 Significant change in size (>/= 20% in 2 dimensions and minimal increase of 2 mm or 50% or greater increase in volume): No Change in features: No Change in ACR TI-RADS risk category: No 3. Location: Left mid. Size: 2.2 x 1.5 x 2.6 cm, volume 4.6 mL. Previously: 2.3 x 2.2 x 1.5 cm, volume 3.7 mL. Nodule characteristics: Composition: Solid (2). Echogenicity: Hypoechoic (2). Shape: Not taller than wide (0). Margins: Smooth (0). Echogenic Foci: None (0). ACR TI-RADS total points: 4 Previous: 4 ACR TI-RADS category: 4 Previous: 4 Significant change in size (>/= 20% in 2 dimensions and minimal increase of 2 mm or 50% or greater increase in volume): No Change in features: No Change in ACR TI-RADS risk category: No 4. Location: Left mid. Size: 1.3 x 0.7 x 0.7 cm, volume 0.3 mL. Previously: 0.9 x 0.8 x 0.6 cm, volume 0.2 mL. Nodule characteristics: Composition: Solid (2). Echogenicity: Hypoechoic (2). Shape: Not taller than wide (0). Margins: Smooth (0). Echogenic Foci: None (0). ACR TI-RADS total points: 4 Previous: 4 ACR TI-RADS category: 4 Previous: 4 Significant change in size (>/= 20% in 2 dimensions and minimal increase of 2 mm or 50% or greater increase in volume): No Change in features: No Change in ACR TI-RADS risk category: No 5. Location: Left inferior. Size: 0.7 x 0.5 x 1.0 cm, volume 0.2 mL. Previously: 0.9 x 0.5 x 1.1 cm, volume 0.2 mL. Nodule characteristics: Composition: Mixed cystic and solid (1). Echogenicity: Isoechoic (1). Shape: Not taller than wide (0). Margins: Smooth (0). Echogenic Foci: None (0). ACR TI-RADS total points: 2 Previous: 2 ACR TI-RADS category: 2 Previous: 2 Significant change in size (>/= 20% in 2 dimensions and minimal increase of 2 mm or 50% or greater increase in volume): No Change in features: No Change in ACR TI-RADS risk category: No NODES: No lymphadenopathy is seen in the tissue surrounding the thyroid gland. US/US thyroid IMPRESSION: 1. Nodule in the midportion of the right thyroid lobe demonstrates decreased maximum dimension and measuring 0.7 cm with a stable TI-RADS category 4. Nodule does not require follow-up. 2. Nodule in the lower portion of the right thyroid lobe demonstrates decreased maximum dimension and measuring 1.5 cm with increase in TI-RADS Category now 5. Nodule is amenable to biopsy if not already performed. 3. Nodule in the midportion of the left thyroid lobe (nodule #3) demonstrates increased maximum dimension now measuring 2.6 cm with a stable TI-RADS category 4. Nodule is amenable to biopsy if not already performed. 4. Nodule in the midportion of the left thyroid lobe (nodule #4) demonstrates increased max dimension measuring 1.3 cm with a stable TI-RADS category 4. Follow-up as below. 5. Nodule in the lower portion of the left thyroid lobe demonstrates slight decrease in maximum dimension measuring 1.0 cm with a stable TI-RADS category 2. Nodule does not require follow-up. 6. Bilateral thyroid lobes are enlarged, left greater than right with a heterogeneous echotexture and normal vascularity. 7. No lymphadenopathy noted. ACR TI-RADS RECOMMENDATION REFERENCE: Ultrasound-guided fine-needle aspiration, follow up ultrasound, no further followup. * TR2 (2 points): No FNA or followup * TR4 (4-6 points): FNA if more than or equal to 1.5 cm in maximum dimension, follow up ultrasound in 1, 2, 3 and 5 years if 1 to 1.4 cm in maximum dimension. * TR5 (more than or equal to 7 points): FNA if more than or equal to 1 cm in maximum dimension, follow up ultrasound every year for 5 years if 0.5 to 0.9 cm in maximum dimension. * TR4 or TR5 nodules that are below the size threshold for follow up receive no followup. Electronically signed by: Magen Villarreal MD 04/17/2024 06:53 PM EDT RP
== END 2024-04-12 12:07 | disposition home or self-care (01) ==
LOC: HO.US 12:06
PROVIDERS: PCP Internal Medicine; Visit Provider Student in an Organized Health Care Education/Training Program
DX: E04.2 Nontoxic multinodular goiter (principal)
CPT/HCPCS: 76536

== ENCOUNTER 2024-04-16 10:45 | Outpatient (AMB) | payer OTHER, SELFPAY ==
--- NOTE | 2024-04-16 10:50 | MHC.PC.OV ---
Vital Signs 04/16/24 10:51 Height 5 ft 2 in Weight 205 lb 2 oz BMI 37.5 BP 96/60 Blood Pressure Location Lt brachial Position Sitting Pulse 63 Pulse Source Pulse Oximeter Pulse Oximetry (%) 97 Oxygen Delivery Method Room Air Intake Visit Reasons: Dizziness , off balance, low BP Intake Note: Patient is here to follow up on Dizziness, off balance and low bp for a couple months. Briquette Machine Operator Required: Yes Briquette Machine Operator Language: Coat Presser Name: Noa (daughter) Information Interpreted: non-clinical & clinical Tester Equipment: Present Accompanied by: Daughter Allergies cat dander [CAT DANDER] Allergy (Intermediate, Verified 04/16/24 10:51) skin rash mite-Dermatophagoides farinae, skyla [DUST MITES] Allergy (Intermediate, Verified 04/16/24 10:51) watery itchy eyes, sneezing Medication List - Last Reconciled 04/16/24 by Sabi Mckeon PA-C acetaminophen (Tylenol) 325 mg PO BID PRN albuterol sulfate 90 mcg/actuation 1 - 2 puffs PO Q4-6H PRN 30 days amlodipine 10 mg PO DAILY 90 days amlodipine 5 mg PO DAILY aspirin 81 mg PO DAILY 90 days atorvastatin 80 mg PO BEDTIME 90 days cholecalciferol (vitamin D3) 25 mcg PO DAILY epinephrine 0.3 mL IM DAILY PRN ferrous sulfate (Iron (ferrous sulfate)) 325 mg PO DAILY 30 days furosemide 40 mg PO DAILY 90 days losartan 100 mg PO DAILY 90 days mometasone 0.1% 1 appl topical DAILY PRN montelukast 10 mg PO BEDTIME qalcnnqixxyn-pgkhzriu-nhzzib 1 tab PO DAILY nystatin 1 appl topical DAILY PRN 30 days olopatadine 0.1% 1 drp ophthalmic (eye) DAILY omega-3 fatty acids 1,000 mg PO DAILY omeprazole 20 mg PO DAILY 90 days oxycodone 5 mg PO BID 30 days polyethylene glycol 3350 17 grams PO DAILY 30 days sennosides (senna) 8.6 mg PO BEDTIME PRN 30 days sertraline 200 mg PO DAILY sumatriptan succinate 25 mg PO Q2-4H PRN 30 days trazodone 150 mg PO BEDTIME walker with wheels Tobacco use date assessed: 04/16/24 Fall risk assessment: No Falls in past year Last assessed Fall Risk: 04/16/24 Dental Screening Dental Screen Date: 09/24/23 HPI Dizziness , off balance, low BP HPI Details 78-year-old female with past medical history of hypertension, degenerative disc disease, depression, hypercholesterolemia, GERD, asthma last seen by Dr. Miller coming in for acute problem. Patient presents today with her daughter who is translating for the duration of this appointment. She tells us today that in September Dr. Miller increased her amlodipine from 5 mg to 10 mg. Since then she has had episodes of dizziness and lightheadedness however more recently she has had 2 episodes of lightheadedness that caused her to stumble and almost fall. Most recently 1 week ago her patient was unable to catch her balance due to being dizzy and lightheaded when taking the blood pressure was lower than normal for her. Most of her pressures have been on the lower side since increasing the amlodipine. She has no other concerns. [facility] Medical History (Updated 04/16/24 @ 12:31 by Sabi Mckeon PA-C) Multinodular goiter HX: breast cancer Thyroid disease Depression Obesity (BMI 30-39.9) Vitamin D deficiency Migraine GERD without esophagitis Anemia Asthma Pure hypercholesterolemia Environmental allergies Venous (peripheral) insufficiency Complex renal cyst Morbid obesity with BMI of 40.0-44.9, adult Gall stones Mild major depression Dyslipidemia Tremor of left hand Invasive ductal carcinoma of left breast Non-toxic multinodular goiter Lumbar degenerative disc disease Renal calculi Insomnia Constipation due to opioid therapy Essential hypertension Surgical History History of left cataract surgery Hx of varicose vein stripping Hx of cystoscopy Hx of biopsy H/O colonoscopy Hx of dilation and curettage History of esophagogastroduodenoscopy (EGD) Hx of hand surgery History of lumpectomy of left breast History of lithotripsy History of left knee replacement History of section Family History Father Medical history unknown Mother Lung cancer Colon cancer Social History Household Members: None Household Members Other:: daughter Housing: Apartment Are you a primary laboratory animal caretaker to a significant other at home: No Do you presently have visiting nurse or other home services: 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 Vishal Gonsales, Dione Horn, Eduar Steel and colleagues, with an educational josé miguel from [employer]. Review of Systems Const Denies chills, Denies fever(s) and Reports frequent falls Eyes Denies blurry vision ENT Reports no additional complaints Card Denies chest pain, Denies syncope, Reports lightheadedness and Denies dyspnea Resp Denies hemoptysis and Denies dyspnea GI Denies abdominal pain, Denies melena, Denies hematochezia and Denies vomiting Reports no additional complaints Musc Reports no additional complaints Skin/Breast Reports system reviewed and no additional complaints, except as documented Neuro Reports no additional complaints, Denies syncope and Reports frequent falls Physical exam (Primary Care) Vital Signs: Last Vital Signs Pulse 63 04/16/24 10:51 BP 96/60 04/16/24 10:51 Pulse Ox 97 04/16/24 10:51 Oxygen Delivery Method Room Air 04/16/24 10:51 BMI result Body Mass Index 37.5 Tobacco/Smoking Status: Tobacco use Status Tobacco use date assessed 04/16/24 04/16/24 11:00 Patient Tobacco Use Status Never used Tobacco 04/16/24 11:00 e-Cigarette/Vaping Use Never Used 04/16/24 11:00 Thrive Assessment: Date of Thrive Assessment Date Thrive assessed 09/24/23 04/16/24 11:00 Const General: cooperative, healthy appearing, comfortable and no acute distress Orientation/consciousness: patient oriented x3 HENMT Head: Yes normocephalic Ears: hearing grossly normal bilaterally General nose exam: Normal external nose present Eyes General: appearance normal, both eyes and all related structures Conjunctivae: conjunctivae normal Neck Neck: Yes full ROM and Yes no lymphadenopathy Resp Effort & Inspection: normal respiratory effort Auscultation: clear to auscultation bilaterally, no crackles, no rales, no rhonchi and no wheezes Cardio Rate: regular rate Rhythm: regular rhythm Skin General skin exam: no rashes or lesions noted Neuro General: patient oriented x3 Gait exam (Neuro): Normal gait present Extrem General: Yes normal to inspection, Yes full ROM and No edema Psych Affect: normal affect Attitude: cooperative Insight: Good insight present (Psych) Judgement: Good judgement present (Psych) Assessment and Plan Assessment & Plan (1) Essential hypertension: Code(s): I10 - Essential (primary) hypertension Plan: Blood pressure in the office today is lower than target that 96/60. We will decrease amlodipine from 10 mg to 5 mg. Scheduled for patient to have a one-week follow up with nurse navigator for blood pressure check in education and follow up in 1 month with us. Advised patient to take blood pressure 3-4 times per week until then and bring log to next appointment. (2) Lightheadedness: Code(s): R42 - Dizziness and giddiness Plan: Lightheadedness and dizziness began after increasing the dose of amlodipine from 5 mg to 10 mg. We will decrease the dose back to 5 mg to see if symptoms improve and continue to monitor blood pressure during that time. If symptoms persist after dose decrease further investigation will be needed. Last blood work normal with no signs of anemia or electrolyte imbalances. Plan This note was constructed using voice recognition software. While every effort has been made to ensure accuracy and iv rn, still areas may have been included sometimes these areas may affect the content or meeting of the given symptoms. Total time spent caring for the patient today was 25 minutes. This includes time spent before the visit reviewing the chart, time spent during the visit, and time spent after the visit and documentation. Medications: New amlodipine 5 mg PO DAILY 30 tabs 1RF On Hold amlodipine Hold Comment: Dose Change 10 mg PO DAILY 90 days 90 tabs 1RF I10 - Essential (primary) hypertension Coding Level of Care Code Est Pt Level 3 (02965) Diagnoses Essential hypertension I10 Lightheadedness R42
[2024-04-16 10:51] VITALS: BP 96/60; PULSE 63; O2SAT 97; BMI 37.5
== END 2024-04-16 11:31 | disposition home or self-care (01) ==
PROVIDERS: PCP Internal Medicine
DX: R42 Dizziness and giddiness (principal); I10 Essential (primary) hypertension; E66.9 Obesity, unspecified; Z68.37 Body mass index [BMI] 37.0-37.9, adult
CPT/HCPCS: 99213

== ENCOUNTER → 2024-04-23 11:04 | Outpatient (BNVA) | payer OTHER, SELFPAY | PROVIDERS: PCP Internal Medicine ==

== ENCOUNTER 2024-05-14 11:01 | Outpatient (AMB) | payer OTHER, SELFPAY ==
--- NOTE | 2024-05-14 11:07 | MHC.PC.OV ---
Vital Signs 05/14/24 11:08 05/14/24 11:29 Height 5 ft 2 in Weight 201 lb BMI 36.8 BP 136/90 H 128/82 Blood Pressure Location Lt brachial Lt brachial Position Sitting Pulse 68 Pulse Source Pulse Oximeter Pulse Oximetry (%) 97 Oxygen Delivery Method Room Air Intake Visit Reasons: f/u HTN Technology And Engineering Teacher Required: No Allergies cat dander [CAT DANDER] Allergy (Intermediate, Verified 05/14/24 11:07) skin rash mite-Dermatophagoides farinae, skyla [DUST MITES] Allergy (Intermediate, Verified 05/14/24 11:07) watery itchy eyes, sneezing Tobacco use date assessed: 04/16/24 Fall risk assessment: No Falls in past year Last assessed Fall Risk: 05/14/24 Dental Screening Dental Screen Date: 09/24/23 HPI f/u HTN HPI Details 78-year-old female with past medical history of hypertension, degenerative disc disease, depression,hypercholesterolemia, GERD, asthma coming in for blood pressure follow up. At her last visit amlodipine was decreased from 10 mg to 5 mg due to hypotension in the office. Patient was seen by nurse navigator 04/23/2024 blood pressure in the office 130/78. Today she tells us since decreasing amlodipine she has almost no or dizziness. Blood pressures been in the 130/80s with very few over 140 systolic. She has been seeing Podiatry and was recommended for injections for left bunion. She has no other concerns today. [facility] Medical History (Updated 04/16/24 @ 12:31 by Sabi Mckeon PA-C) Multinodular goiter HX: breast cancer Thyroid disease Depression Obesity (BMI 30-39.9) Vitamin D deficiency Migraine GERD without esophagitis Anemia Asthma Pure hypercholesterolemia Environmental allergies Venous (peripheral) insufficiency Complex renal cyst Morbid obesity with BMI of 40.0-44.9, adult Gall stones Mild major depression Dyslipidemia Tremor of left hand Invasive ductal carcinoma of left breast Non-toxic multinodular goiter Lumbar degenerative disc disease Renal calculi Insomnia Constipation due to opioid therapy Essential hypertension Surgical History History of left cataract surgery Hx of varicose vein stripping Hx of cystoscopy Hx of biopsy H/O colonoscopy Hx of dilation and curettage History of esophagogastroduodenoscopy (EGD) Hx of hand surgery History of lumpectomy of left breast History of lithotripsy History of left knee replacement History of section Family History Father Medical history unknown Mother Lung cancer Colon cancer Social History Household Members: None Household Members Other:: daughter Housing: Apartment Are you a primary medicare contact specialist to a significant other at home: No Do you presently have visiting nurse or 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 How often do you have a drink containing alcohol?: Never 3. How often do you have six or more drinks on one occasion?: Never Total Score: 0 SHAMIR-7 AMB Questionnaire SHAMIR-7 Date SHAMIR - 7 assessed: 09/24/23 Source: Developed by Drs. Vishal Gonsales, Dione Horn, Eduar Steel and colleagues, with an educational josé miguel from [employer]. Review of Systems Const Denies body aches, Denies fatigue, Denies fever(s) and Denies headache(s) Eyes Reports no additional complaints ENT Denies dizziness and Denies headache(s) Card Denies chest pain, Denies leg edema, Denies lightheadedness and Denies dyspnea Resp Denies dyspnea GI Reports no additional complaints Reports no additional complaints Musc Details: Left foot pain Neuro Denies dizziness and Denies headache(s) Endo Denies fatigue Physical exam (Primary Care) Vital Signs: Last Vital Signs Pulse 68 05/14/24 11:08 BP 136/90 H 05/14/24 11:08 Pulse Ox 97 05/14/24 11:08 Oxygen Delivery Method Room Air 05/14/24 11:08 BMI result Body Mass Index 36.8 Tobacco/Smoking Status: Tobacco use Status Tobacco use date assessed 04/16/24 05/14/24 11:15 Patient Tobacco Use Status Never used Tobacco 05/14/24 11:15 e-Cigarette/Vaping Use Never Used 05/14/24 11:15 Thrive Assessment: Date of Thrive Assessment Date Thrive assessed 09/24/23 05/14/24 11:15 Const General: cooperative, healthy appearing, comfortable and no acute distress Orientation/consciousness: patient oriented x3 HENMT Head: Yes normocephalic Ears: hearing grossly normal bilaterally General nose exam: Normal external nose present Eyes General: appearance normal, both eyes and all related structures Conjunctivae: conjunctivae normal Neck Neck: Yes full ROM and Yes no lymphadenopathy Resp Effort & Inspection: normal respiratory effort Auscultation: clear to auscultation bilaterally, no crackles, no rales, no rhonchi and no wheezes Cardio Rate: regular rate Rhythm: regular rhythm Skin General skin exam: no rashes or lesions noted Neuro General: patient oriented x3 Gait exam (Neuro): Normal gait present Extrem General: Yes normal to inspection, Yes full ROM and No edema Psych Affect: normal affect Attitude: cooperative Insight: Good insight present (Psych) Judgement: Good judgement present (Psych) Coding Level of Care Code Est Pt Level 3 (73386) Diagnoses Lightheadedness R42 Pure hypercholesterolemia E78.00 Essential hypertension I10 Assessment & Plan Assessment & Plan (1) Lightheadedness: Code(s): R42 - Dizziness and giddiness Category: Medical Plan: resolved since decreasing the amlodipine. (2) Pure hypercholesterolemia: Code(s): E78.00 - Pure hypercholesterolemia, unspecified Category: Medical Plan: Avoid foods that are high in cholesterol such as red meat, fried foods, eggs and baked goods. Triglyceride goal of less than 150 and LDL goal of less than 130. Blood pressure at goal on last labs. (3) Essential hypertension: Code(s): I10 - Essential (primary) hypertension Category: Medical Plan: Continue on current blood pressure medication amlodipine 5 mg. Avoid salt intake and encourage healthy diet and regular exercise. We will follow up at annual exam in 2 months. Continue to monitor blood pressures and follow up sooner if values become too high or too low. Plan This note was constructed using voice recognition software. While every effort has been made to ensure accuracy and investment sales assistant, still areas may have been included sometimes these areas may affect the content or meeting of the given symptoms. Total time spent caring for the patient today was 30 minutes. This includes time spent before the visit reviewing the chart, time spent during the visit, and time spent after the visit and documentation.
[2024-05-14 11:08] VITALS: BP 136/90; PULSE 68; O2SAT 97; BMI 36.8
[2024-05-14 11:29] VITALS: BP 128/82
== END 2024-05-14 12:07 | disposition home or self-care (01) ==
PROVIDERS: PCP Internal Medicine
DX: R42 Dizziness and giddiness (principal); E78.00 Pure hypercholesterolemia, unspecified; I10 Essential (primary) hypertension

== ENCOUNTER → 2024-05-14 11:01 | Outpatient (BNVA) | payer OTHER, SELFPAY | PROVIDERS: PCP Internal Medicine | DX: I10 Essential (primary) hypertension (principal); R42 Dizziness and giddiness; E78.00 Pure hypercholesterolemia, unspecified | CPT/HCPCS: 99212 ==

== ENCOUNTER 2024-05-25 10:37 | Outpatient (AMB) | payer OTHER, SELFPAY ==
--- NOTE | 2024-05-25 10:42 | MHC.OFFVIS ---
Vital Signs 05/25/24 10:44 Height 5 ft 2 in Weight 206 lb 2 oz BMI 37.7 BP 130/82 Blood Pressure Location Rt brachial Position Sitting Pulse 84 Pulse Source Pulse Oximeter Pulse Oximetry (%) 95 Oxygen Delivery Method Room Air Intake Visit Reasons: INP-Other amnesia, Tremor Intake Note: Patient presents in office for a new patient evaluation for Amnesia. Liquor Commissioner Required: Yes Liquor Commissioner Language: Lamination Builder Services: Liquor Commissioner Offered & Declined ([facility] flash oven operator services refused. Pt accompanied by daughter who will interpret. ) Liquor Commissioner Name: Noa- Daughter Information Interpreted: clinical only Accompanied by: Daughter Allergies cat dander [CAT DANDER] Allergy (Intermediate, Verified 05/25/24 10:47) skin rash mite-Dermatophagoides farinae, skyla [DUST MITES] Allergy (Intermediate, Verified 05/25/24 10:47) watery itchy eyes, sneezing Medication List - Last Reconciled 05/25/24 by Iris Poe MD acetaminophen (Tylenol) 325 mg PO BID PRN albuterol sulfate 90 mcg/actuation 1 - 2 puffs PO Q4-6H PRN 30 days amlodipine 5 mg PO DAILY aspirin 81 mg PO DAILY 90 days atorvastatin 80 mg PO BEDTIME 90 days cholecalciferol (vitamin D3) 25 mcg PO DAILY epinephrine 0.3 mL IM DAILY PRN ferrous sulfate (Iron (ferrous sulfate)) 325 mg PO DAILY 30 days furosemide 40 mg PO DAILY 90 days losartan 100 mg PO DAILY 90 days mometasone 0.1% 1 appl topical DAILY PRN wteyopcxyldl-lkyqzmda-vucatq 1 tab PO DAILY nystatin 1 appl topical DAILY PRN 30 days olopatadine 0.1% 1 drp ophthalmic (eye) DAILY omega-3 fatty acids 1,000 mg PO DAILY omeprazole 20 mg PO DAILY 90 days oxycodone 5 mg PO BID 30 days polyethylene glycol 3350 17 grams PO DAILY 30 days sennosides (senna) 8.6 mg PO BEDTIME PRN 30 days sertraline 200 mg PO DAILY sumatriptan succinate 25 mg PO Q2-4H PRN 30 days trazodone 150 mg PO BEDTIME walker with wheels HPI Comments Details: 78y/o Right handed female comes for evaluation tremors and memory issues accompanied by her daughter Noa. She has left hand tremors- according to her daughter it is mild and intermittent, at rest and does not affect her ADLs. It started many years atleast 3 years ago. She is more concerned about her memory she lives alone and her family noticed that her short term memory is worse in the past year. she has short term memory issues, repeats , confused etc. she forgets appointments, conversations, forgets medicines . confused with time.she is confused with location. [facility] [place] - goes to [facility] and once she could not find her apartment in her building . she also frequently misplaces things. 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 No h/o head injury SLeep- trouble falling asleep for many years, better now. she has occasional snoring.she has arthritis and does not sleep well somedays due to pain. her mother had dementia in her 80s [facility] Medical History (Updated 05/25/24 @ 11:25 by Iris Poe MD) Dementia Multinodular goiter HX: breast cancer Thyroid disease Depression Obesity (BMI 30-39.9) Vitamin D deficiency Migraine GERD without esophagitis Anemia Asthma Pure hypercholesterolemia Environmental allergies Venous (peripheral) insufficiency Complex renal cyst Morbid obesity with BMI of 40.0-44.9, adult Gall stones Mild major depression Dyslipidemia Tremor of left hand Invasive ductal carcinoma of left breast Non-toxic multinodular goiter Lumbar degenerative disc disease Renal calculi Insomnia Constipation due to opioid therapy Essential hypertension Surgical History History of left cataract surgery Hx of varicose vein stripping Hx of cystoscopy Hx of biopsy H/O colonoscopy Hx of dilation and curettage History of esophagogastroduodenoscopy (EGD) Hx of hand surgery History of lumpectomy of left breast History of lithotripsy History of left knee replacement History of section Family History Father Medical history unknown Mother Lung cancer Colon cancer Social History Household Members: None Household Members Other:: daughter Housing: Apartment Are you a primary rn intensive care unit to a significant other at home: No Do you presently have visiting nurse or other home 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) Alcohol intake: never Patient Tobacco Use Status: Never used Tobacco e-Cigarette/Vaping Use: Never Used Second Hand Smoke Exposure: No service: No 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al status: unemployed and disabled 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 Cognitive needs: Yes (cane, walker) Hearing needs: No Vision needs: Yes Review of Systems Neuro Reports confusion Psych Reports confusion Physical Exam Vital Signs: Last Vital Signs Pulse 84 05/25/24 10:44 BP 130/82 05/25/24 10:44 Pulse Ox 95 05/25/24 10:44 Oxygen Delivery Method Room Air 05/25/24 10:44 BMI result Body Mass Index 37.7 Const General: cooperative and confusion; No anxious Nutritional Appearance: obese Orientation/consciousness: confusion Neuro Other: walks with walker- slow antalgic gait Left UE rest tremors whne anxious FFM and foot taps decreased General: tone normal, moves all extremities, no focal motor deficits and confusion Cranial nerves: Yes Facial sensation intact/muscles of mastication intact, Yes Bilaterally intact EOM present, Yes Nystagmus not present, Yes Normal facial strength present and Yes Midline tongue present Cognition (Neuro): abnormal cognition Gait exam (Neuro): Antalgic gait present Motor exam (neuro): 5/5 motor strength present throughout and Normal motor muscle tone present throughout Deep tendon reflexes (DTR's): Right triceps reflex intensity grade: 1+, Left triceps reflex intensity grade: 1+, Rt Biceps (C5, C6): 1+, Left biceps reflex intensity grade: 1+, Right brachioradialis reflex intensity grade: 1+, Left brachioradialis reflex intensity grade: 1+, Right patellar reflex intensity grade: 1+ and Left patellar reflex intensity grade: 1+ Coordination: [id number] test normal Psych Affect: Anxious affect present Orientation Where are we (state) (county) (town or city) (hospital) (floor)?: state, town or city and hospital/clinic Registration Name of 3 unrelated objects clearly and slowly, then ask patient to repeat all 3 of them. (1st repeat determines score. Make sure they can repeat all three): object 1, object 2 and object 3 Recall Ask patient to repeat the 3 items from question #3.: object 1 Language Show patient a wristwatch & ask what it is. Repeat for pencil.: watch and pencil Ask the patient to repeat the phrase 'No ifs, ands, or buts' after you.: correct Ask the patient to 'take a piece of paper with their right hand' 'fold paper in half' 'place paper on floor': take paper in right hand, fold paper in half and place paper on floor Print the sentence 'CLOSE YOUR EYES' on a piece. If patient actually closes eyes then score.: followed written direction Give patient a blank piece of paper & ask to write a sentence. Score if it contains a noun & verb.: sentence contains subject and verb Score Score: 15 Results Reviewed Results Reviewed: MRI Brain- 12/2023 No acute intracranial abnormalities. 2. Moderate underlying microangiopathy and generalized cerebral volume loss. Assessment & Plan Assessment & Plan (1) Dementia: Comment: Alzheimers vs Mixed Code(s): F03.90 - Unspecified dementia, unspecified severity, without behavioral disturbance, psychotic disturbance, mood disturbance, and anxiety Category: Medical (2) Tremor of left hand: Code(s): R25.1 - Tremor, unspecified Category: Medical Plan Reviewed MRI Brain results TSH and B12 levels were normal I will trial her on memantine 10 mg qd for 1 week then bid suggested to increase her physical and cognitive activity. Tremors does not bother- I will monitor her clinically Medications: New memantine 1 tab qd for 7 days then 1 tab 2 times a day 10 mg PO BID 60 tabs 6RF Coding Level of Care Code New Pt Level 4 (29558) Complex EM visit Add On G2211 Diagnoses Dementia F03.90 Tremor of left hand R25.1
[2024-05-25 10:44] VITALS: BP 130/82; PULSE 84; O2SAT 95; BMI 37.7
== END 2024-05-25 11:27 | disposition home or self-care (01) ==
PROVIDERS: PCP Internal Medicine; Visit Provider Psychiatry & Neurology Neurology
DX: F03.90 Unspecified dementia, unspecified severity, without behavioral disturbance, psychotic disturbance, mood disturbance, and anxiety (principal); R25.1 Tremor, unspecified
CPT/HCPCS: 99204; G2211

== ENCOUNTER → 2024-05-25 10:37 | Outpatient (BNVA) | payer OTHER, SELFPAY | PROVIDERS: PCP Internal Medicine; Visit Provider Psychiatry & Neurology Neurology | DX: F03.90 Unspecified dementia, unspecified severity, without behavioral disturbance, psychotic disturbance, mood disturbance, and anxiety (principal); R25.1 Tremor, unspecified | CPT/HCPCS: 99202 ==

== ENCOUNTER 2024-07-07 08:47 | Outpatient (REF) | payer OTHER, SELFPAY ==
--- NOTE | ~2024-07-07 | XR_ITS ---
EXAMINATION: XR HIP RIGHT CLINICAL INFORMATION: Pain in right hip M25.551. COMPARISON: XR Hip pelvis 04/20/2015 TECHNIQUE: Two views of the right hip. FINDINGS: Mild left hip arthritis, with lateral acetabular spurring, lateral humeral head/neck bony hypertrophy. No evidence of acute fracture or dislocation. Visualized pelvic bones intact. Mild symphysis pubis degeneration. No abnormal soft tissue calcification. Vascular calcifications. No suspicious lytic or blastic lesion seen. Calcifications in the pelvis, correlating with the calcified uterine fibroid seen on the prior CT scan of 06/17/2023. XR/XR hip RT min 2V IMPRESSION: Mild left hip arthritis. Study is assigned/presented to me for interpretation on Aug 18, 2024 Electronically signed by: Rodolfo Rainey MD 08/18/2024 04:43 PM [facility]
--- NOTE | ~2024-07-07 | XR_ITS ---
EXAMINATION: XR HIP LEFT CLINICAL INFORMATION: Pain in left hip M25.552. COMPARISON: XR Hip 07/16/2019 TECHNIQUE: Two views of the left hip. FINDINGS: No evidence of acute fracture or dislocation. Alignment is anatomic. Hip joint space is maintained. No suspicious bony lesions. No abnormal soft tissue calcification. Vascular calcification. XR/XR hip LT min 2V IMPRESSION: No acute osseous abnormality. Study is assigned/presented to me for interpretation on Aug 18, 2024 Electronically signed by: Rodolfo Rainey MD 08/18/2024 04:45 PM EST
[2024-07-07 10:29] LABS: MANUAL DIFF FLAG NO
[2024-07-07 10:48] LABS: Basophils Percent Auto 0.5 % (0-2); Eosinophils Absolute Auto 0.1 X10*3/uL (0.0-0.4); Eosinophils Percent Auto 2.3 % (0-4); Hematocrit 36.3 % (37.0-47.0); Hemoglobin 11.6 g/dl (12.0-16.0); Imm Gran Abs Auto 0.01 X10*3/uL (0.00-0.03); Imm Gran Pct Auto 0.2 % (0.0-0.4); Lymphocytes Absolute Auto 1.5 X10*3/uL (1.2-4.9); Lymphocytes Percent Auto 27.7 % (20-40); Mean Corpuscular Hemoglobin 30.7 pg (27.0-33.0); Mean Platelet Volume 10.8 fL (9.4-12.3); Monocytes Absolute Auto 0.5 X10*3/uL (0.1-1.2); Monocytes Percent Auto 8.3 % (2-11); Neutrophils Absolute Auto 3.4 x10*3/uL (2.0-8.3); Platelet Count 152 X10*3/uL (160-400); Red Blood Count 3.78 X10*6/uL (4.20-5.50); Red Cell Distribution Width 13.2 % (11.0-16.0); White Blood Count 5.6 X10*3/uL (4.8-10.8)
[2024-07-07 11:35] LABS: Alanine Aminotransferase 11 U/L (0-31); Albumin Level 4.2 g/dL (3.5-5.0); Alkaline Phosphatase 63 U/L (39-117); Anion Gap 12 (12-20); Aspartate Amino Transferase 21 U/L (5-31); Bilirubin Total 0.5 mg/dL (0.0-1.0); Blood Urea Nitrogen 16 mg/dL (9-16); Calcium 9.5 mg/dL (8.4-10.2); Carbon Dioxide 29 mmol/L (22-29); Chloride 105 mmol/L (96-108); Cholesterol 166 mg/dL (<200); Estimated Glomerular Filt Rate > 60; Glucose Fasting 92 mg/dL (60-99); HDL Cholesterol 55 mg/dL (>40); Iron 83 mcg/dL (30-160); LDL Cholesterol Calculated 97 mg/dL (<100); Percent Iron Saturation 36 % (15-50); Potassium 3.9 mmol/L (3.3-5.1); Sodium 142 mmol/L (135-145); Total Iron Binding Capacity 232 mcg/dL (228-428); Total Protein 7.1 g/dL (6.5-8.0); Triglycerides 72 mg/dL (<150); Unsaturated Iron Binding 149 ug/dL
[2024-07-07 11:46] LABS: Folate 17.7 ng/mL (> or = 4.0); Vitamin B12 761 pg/mL (200-900)
== END 2024-07-07 08:48 | disposition home or self-care (01) ==
LOC: HO.XRAY 08:47
PROVIDERS: PCP Internal Medicine; Visit Provider Internal Medicine
DX: Z00.01 Encounter for general adult medical examination with abnormal findings (principal); Z23 Encounter for immunization; M25.551 Pain in right hip; M25.552 Pain in left hip; F03.90 Unspecified dementia, unspecified severity, without behavioral disturbance, psychotic disturbance, mood disturbance, and anxiety; F32.0 Major depressive disorder, single episode, mild; L97.901 Non-pressure chronic ulcer of unspecified part of unspecified lower leg limited to breakdown of skin; D64.9 Anemia, unspecified; E78.5 Hyperlipidemia, unspecified; E53.8 Deficiency of other specified B group vitamins; E55.9 Vitamin D deficiency, unspecified; Z78.0 Asymptomatic menopausal state
CPT/HCPCS: 36415; 73502; 80053; 80061; 82306; 82607; 82746; 83540; 85025; 90471; 90714; 96127; 99212; 99397

== ENCOUNTER 2024-07-07 08:47 | Outpatient (AMB) | payer OTHER, SELFPAY ==
[2024-07-07 08:53] VITALS: BP 130/80; BMI 38.0
--- NOTE | 2024-07-07 08:53 | MHC.PC.OV ---
Vital Signs 07/07/24 08:53 Height 5 ft 2 in Weight 208 lb BMI 38.0 BP 130/80 Blood Pressure Location Lt brachial Position Sitting Intake Visit Reasons: Annual Exam - see comments Intake Note: Patient here for an annual physical exam, c/o left side lower back pain Multimedia Manager Required: No Accompanied by: Daughter Allergies cat dander [CAT DANDER] Allergy (Intermediate, Verified 07/07/24 09:33) skin rash mite-Dermatophagoides farinae, skyla [DUST MITES] Allergy (Intermediate, Verified 07/07/24 09:33) watery itchy eyes, sneezing Medication List - Last Reconciled 07/07/24 by Kathy Bailon MD acetaminophen (Tylenol) 325 mg PO BID PRN albuterol sulfate 90 mcg/actuation 1 - 2 puffs PO Q4-6H PRN 30 days amlodipine 5 mg PO DAILY aspirin 81 mg PO DAILY 90 days atorvastatin 80 mg PO BEDTIME 90 days cholecalciferol (vitamin D3) 25 mcg PO DAILY epinephrine 0.3 mL IM DAILY PRN ferrous sulfate (Iron (ferrous sulfate)) 325 mg PO DAILY 30 days furosemide 40 mg PO DAILY 90 days losartan 100 mg PO DAILY 90 days memantine 10 mg PO BID mometasone 0.1% 1 appl topical DAILY PRN elphhotfnded-xslvxfkn-ntijon 1 tab PO DAILY nystatin 1 appl topical DAILY PRN 30 days olopatadine 0.1% 1 drp ophthalmic (eye) DAILY omega-3 fatty acids 1,000 mg PO DAILY omeprazole 20 mg PO DAILY 90 days oxycodone 5 mg PO BID 30 days polyethylene glycol 3350 17 grams PO DAILY 30 days sennosides (senna) 8.6 mg PO BEDTIME PRN 30 days sertraline 200 mg PO DAILY sumatriptan succinate 25 mg PO Q2-4H PRN 30 days trazodone 150 mg PO BEDTIME walker with wheels Tobacco use date assessed: 04/16/24 Fall risk assessment: No Falls in past year Last assessed Fall Risk: 07/07/24 Dental Screening Dental Screen Date: 07/07/24 Did you have a dental visit in the last 12 months?: No Did you have a dental problem in the last 6 months where you did not have access to dental care?: No Was dental information given to patient?: Patient has dentist HPI HPI Comments History of Present Illness Details - Current vaccinations: Influenza and COVID-19 vaccine administered this year. - Tetanus vaccine due and will be administered today. - Colonoscopy last in 2020 due to tubular adenoma and polyps; follow-up recommended for 2023. - DEXA scan recommended to evaluate for osteoporosis. - Hemoglobin noted at 11.7 with past history improving from 11.3?monitoring for anemia. - Normal renal function, fasting blood glucose at 86. This is an 78-year-old female that comes accompanied by flask fitter for her physical exam. She is obese with a BMI of 38 and was advised to do diet and exercise to reach BMI goal less than 30. She does have hypertension and dyslipidemia and this is why I will start her on Zepbound. Has multiple thyroid nodules that were evaluated by Endocrinology and had history of thyroid biopsy few years ago therefore no biopsy needed at the moment. Mammogram done 2023. Complains of bilateral hip pain and x-ray will be ordered. Depression with anxiety and insomnia are follow by Psychiatry. She does have dementia and is oriented only to person and place but not to time. She does have chronic left leg ulcer follow by vascular surgery. [facility] Medical History (Updated 07/07/24 @ 11:01 by Kathy Bailon MD) Dementia Multinodular goiter HX: breast cancer Thyroid disease Depression Obesity (BMI 30-39.9) Vitamin D deficiency Migraine GERD without esophagitis Anemia Asthma Pure hypercholesterolemia Environmental allergies Venous (peripheral) insufficiency Complex renal cyst Morbid obesity with BMI of 40.0-44.9, adult Gall stones Mild major depression Dyslipidemia Tremor of left hand Invasive ductal carcinoma of left breast Non-toxic multinodular goiter Lumbar degenerative disc disease Renal calculi Insomnia Constipation due to opioid therapy Essential hypertension Surgical History History of left cataract surgery Hx of varicose vein stripping Hx of cystoscopy Hx of biopsy H/O colonoscopy Hx of dilation and curettage History of esophagogastroduodenoscopy (EGD) Hx of hand surgery History of lumpectomy of left breast History of lithotripsy History of left knee replacement History of section Family History Father Medical history unknown Mother Lung cancer Colon cancer Social History Household Members: None Household Members Other:: daughter Housing: Apartment Are you a primary career development facilitator to a significant other at home: No Do you presently have visiting nurse or other home services: Yes ([employer] 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 1. Little interest or pleasure in doing things: not at all 2. Feeling down, depressed, or hopeless: not at all 3. Trouble falling or staying asleep, or sleeping too much: not at all 4. Feeling tired or having little energy: several days 5. Poor appetite or overeating: not at all 6. Feeling bad about yourself - or that you are a failure or have let yourself or your family down: not at all 7. Trouble concentrating on things, such as reading the newspaper or watching television: not at all 8. Moving or speaking so slowly that other people could have noticed. Or the opposite - being so fidgety or restless that you have been moving around a lot more than usual: not at all 9. Thoughts that you would be better off or of hurting yourself in some way: not at all Total score: 1 Depression Screening Interpretation: Positive Depression Screening Follow-up: Existing condition, In treatment and Follow-up Visit Requested Depression Screening Done: Yes 47028 - PHQ-9 Billing: Yes Source: Developed by Drs. Vishal Gonsales, Dione Horn, Eduar Steel and colleagues, with an educational josé miguel from [employer]. Thrive Questionnaire Date Thrive assessed: 09/24/23 I am a: Patient What is your living situation today?: I have a steady place to live Within the past 12 months, did the food you bought not last and you didn't have the money to get more?: Never true Within the past 12 months, did you worry whether your food would run out before you got money to buy more?: Never true Do you have trouble paying for medicines?: No Do you have trouble getting transportation to medical appointments?: No Do you have trouble paying your heating and electricity bill?: No Do you have trouble taking care of your child, family member or friend?: No Do you have trouble with day-to-day activities such as bathing, preparing meals, shopping, managing finances, etc.?: Yes Are you interested in more education?: No Please select the resources that you would like help with: None Currently or been in a relationship where the following occur: No concerns reported THRIVE Score: 0 AUDIT C Alcohol Use Questionnaire (AUDIT-C) 1. How often do you have a drink containing alcohol?: Never Total Score: 0 SHAMIR-7 AMB Questionnaire SHAMIR-7 Date SHAMIR - 7 assessed: 09/24/23 Feeling nervous, anxious, or on edge: 1 = Several days Not being able to stop or control worryin = Several days Worrying too much about different things: 1 = Several days Trouble relaxin = Several days Being so restless that it is hard to sit still: 1 = Several days Becoming easily annoyed or irritable: 1 = Several days Feeling afraid as if something awful might happen: 1 = Several days Total SHAMIR-7 score (0-4 normal; 5-9 mild; 10-14 moderate; 15-21 severe): 7 Source: Developed by Drs. Vishal Gonsales, Dione Horn, Eduar Steel and colleagues, with an educational josé miguel from [employer]. SHAMIR-7 Assessment Billing SHAMIR-7 Assessment Tool: SHAMIR-7 Assessment 51925 Review of Systems Const All systems reviewed & are unremarkable except as noted in HPI and below Card Denies chest pain at rest, Denies chest pain with activity, Denies edema, Denies irregular heart rhythm, Denies claudication, Denies dyspnea, Denies dyspnea on exertion, Denies orthopnea, Denies paroxysmal nocturnal dyspnea and Denies slow heart rate Resp Denies cough, Denies dyspnea and Denies dyspnea on exertion GI Denies abdominal pain, Denies change in bowel habits, Denies excessive flatus, Denies nausea and Denies vomiting Denies urinary incontinence, Denies urinary hesitancy and Denies urinary urgency Musc Denies abnormal gait, Reports back pain, Denies atrophy, Denies deformity, Reports arthralgias, Reports limited range of motion, Reports numbness, Reports radiating pain into limb and Reports tingling Skin/Breast Denies bleeding lesions, Denies changing lesions and Denies rash Neuro Denies abnormal gait, Denies behavioral changes, Denies lack of coordination, Reports memory loss, Reports numbness and Reports tingling Psych Reports abnormal sleep pattern, Reports anxiety, Denies behavioral changes and Reports memory loss Physical exam (Primary Care) Vital Signs: Last Vital Signs BP 130/80 07/07/24 08:53 BMI result Body Mass Index 38.0 BMI Assessment/Plan discussion: High BMI High, discussed plan: lifestyle, weight reduction, dietary and physical activity Tobacco/Smoking Status: Tobacco use Status Tobacco use date assessed 04/16/24 07/07/24 08:59 Patient Tobacco Use Status Never used Tobacco 07/07/24 08:59 e-Cigarette/Vaping Use Never Used 07/07/24 08:59 PHQ-9: PHQ-9 Score PHQ-9: Total score 1 07/07/24 09:50 Depression Screening Interpretation: Positive Depression Screening Follow-up: Existing condition, In treatment and Follow-up Visit Requested Thrive Assessment: Date of Thrive Assessment Date Thrive assessed 09/24/23 07/07/24 08:59 Currently or been in a relationship where the following occur: No concerns reported Const Limitations: ambulation with walker HENMT Head: Yes normal to inspection, Yes normocephalic and Yes atraumatic Ears: external ears normal Eyes General: appearance normal, both eyes and all related structures Eyelids: Yes eyelids normal Conjunctivae: conjunctivae normal Neck Neck: Yes normal visual inspection and Yes supple Resp Effort & Inspection: normal respiratory effort Auscultation: clear to auscultation bilaterally Cardio Jugular venous distension: no JVD Rate: regular rate Rhythm: regular rhythm Heart sounds: S1 normal heart sound present and S2 normal heart sound present GI Inspection: Yes normal to inspection Palpation (GI): Soft to palpation and nontender Auscultation: normal bowel sounds Skin General skin exam: no rashes or lesions noted Neuro General: no focal motor deficits Extrem General: Yes full ROM Psych Appearance: grossly normal Immunizations tetanus-diphtheria toxoids-Td 2 Lf unit-2 Lf unit/0.5 mL IM suspension Performing Provider: Kathy Bailon MD Per[facility] [place] [facility] Administered by: CHERELLE Ewing on 07/07/24 09:50 Dose Route Admin Location Dispensed Lot Number Expiration Date NDC Order Department Supervisor 0.5 mL IM Left Deltoid 0.5 mL [id number] 09/13/24 [address]-0 [employer] VIS Given Date VIS Provided VIS Publication Date 07/07/24 Single Vaccine 21 Eligibility Eligibility Date Funding Source Not [facility] Eligible 07/07/24 [facility] Coding Level of Care Code Est Pt Level 3 (00397) Est Pt Prev Care >65y(67556) Diagnoses Physical exam Z00.00 Right hip pain M25.551 Left hip pain M25.552 Dementia F03.90 Mild major depression F32.0 Chronic ulcer of leg, limited to breakdown of skin L97.901 Additional Codes SHAMIR-7 Assessment Billing - SHAMIR-7 Assessment Tool: SHAMIR-7 Assessment 75289 ([id number]) PHQ-9 - 59547 - PHQ-9 Billing: Yes ([id number]) Time Spent (min) 40 Assessment & Plan Assessment & Plan (1) Physical exam: Code(s): Z00.00 - Encounter for general adult medical examination without abnormal findings Category: Medical Plan: Repeat in a year. (2) Right hip pain: Code(s): M25.551 - Pain in right hip Category: Medical Plan: X-ray ordered. (3) Left hip pain: Code(s): M25.552 - Pain in left hip Category: Medical Plan: X-ray ordered. (4) Dementia: Comment: Alzheimers vs Mixed Code(s): F03.90 - Unspecified dementia, unspecified severity, without behavioral disturbance, psychotic disturbance, mood disturbance, and anxiety Category: Medical Plan: Continue memantine. (5) Mild major depression: Code(s): F32.0 - Major depressive disorder, single episode, mild Category: Medical Plan: Follow-up with psychiatry as needed. (6) Chronic ulcer of leg, limited to breakdown of skin: Code(s): L97.901 - Non-pressure chronic ulcer of unspecified part of unspecified lower leg limited to breakdown of skin Category: Medical Plan: Follow-up with vascular surgery as needed. Plan I discussed with the patient the importance of continued adherence to her current medication regimen for hypertension, hyperlipidemia, and depression, which are currently well-managed. We also reviewed the necessity of maintaining her psychiatric follow-up for depression, given the positive impact of sertraline on her mood symptoms. I highlighted the plan to reassess cholesterol and blood pressure, emphasizing adherence to diet and medication. A discussion on potential weight management protocols was initiated, ensuring no adverse impacts on her current medical treatment. The decision to conduct a DEXA scan to assess bone health was conveyed, explaining its role in diagnosing osteoporosis. The necessity for the upcoming colonoscopy in 2023 due to previous adenoma was reiterated. Vaccination updates include administering the tetanus shot today, with her flu and COVID vaccination being current. Orders: Orders IRON PROFILE Today D64.9 - Anemia, unspecified Lipid Panel Today E78.5 - Hyperlipidemia, unspecified Vitamin D 25-OH Total Today E55.9 - Vitamin D deficiency, unspecified Vitamin B12 and Folate Today E53.8 - Deficiency of other specified B group vitamins XR hip LT min 2V Today M25.552 - Pain in left hip Td State Immunization Today Z23 - Encounter for immunization Complete Blood Count Auto Diff Today D64.9 - Anemia, unspecified Comprehensive [place]. Panel Fast Today F03.90 - Unspecified dementia, unspecified severity, without behavioral disturbance, psychotic disturbance, mood disturbance, and anxiety XR hip RT min 2V Today M25.551 - Pain in right hip XR DEXA axial skeleton Today Z78.0 - Asymptomatic menopausal state Referrals Gastroenterology Referral D12.6 - Benign neoplasm of colon, unspecified Medications: New tirzepatide (weight loss) (Zepbound) for 4 weeks 2.5 mg (0.5 mL) subcut QWEEK 2 mL 0RF 4 weeks E66.812 - Obesity, class 2, E78.5 - Hyperlipidemia, unspecified, I10 - Essential (primary) hypertension, Z68.38 - Body mass index [BMI] 38.0-38.9, adult Patient Instructions: - Continue taking medications as prescribed. - Schedule and attend follow-up with psychiatrist. - Undergo DEXA scan as recommended. - Return for scheduled colonoscopy in 2023. - Monitor weight and discuss safe weight loss options at the next visit. - Receive tetanus vaccine today. - Follow-up on chronic leg ulcer care as advised. - Return to the clinic if any new symptoms arise or conditions worsen.
== END 2024-07-07 09:58 | disposition home or self-care (01) ==
PROVIDERS: PCP Internal Medicine; Visit Provider Internal Medicine
DX: Z00.00 Encounter for general adult medical examination without abnormal findings (principal); F03.90 Unspecified dementia, unspecified severity, without behavioral disturbance, psychotic disturbance, mood disturbance, and anxiety; F32.0 Major depressive disorder, single episode, mild; L97.901 Non-pressure chronic ulcer of unspecified part of unspecified lower leg limited to breakdown of skin; M25.551 Pain in right hip; M25.552 Pain in left hip; Z23 Encounter for immunization

== ENCOUNTER 2024-08-18 10:11 | Outpatient (REF) | payer OTHER, SELFPAY ==
--- NOTE | ~2024-08-18 | MM_ITS ---
EXAMINATION: Dual-Energy X-ray Absorptiometry - Bone Density Study HISTORY: Estrogen deficiency TECHNIQUE: [facility] Dual energy absorptiometry (DEXA) of the lumbar spine, total left hip, and femoral neck was performed. COMPARISON: Comparison is made with the prior examination dated 04/11/2021. FINDINGS: The bone mineral density of the lumbar spine is 1.073 with a T-score of -1.1, and a Z-score of -0.4. This represents a BMD change of -6.6% compared to the prior exam. This is statistically significant. The bone mineral density of the left total hip is 0.842 with a T-score of -1.3, and a Z-score of -0.1. This represents BMD change of -10.4% compared to the prior exam. This is statistically significant. The bone mineral density of the left femoral neck is 0.817 with a T-score of -1.6, and a Z-score of -0.2. This represents BMD change of 2.1% compared to the prior exam. FRACTURE RISK: The FRAX index suggests a ten year probability of major osteoporotic fracture of 7.1%, and of hip fracture 1.6%. MM/XR DEXA axial skeleton IMPRESSION: Based on bone mineral density, and according to World Health Organization (WHO) criteria, the diagnosis is consistent with osteopenia. All bone density values are in grams per centimeter squared. At this facility, the least significant change in BMD with 95% confidence is 0.022 at the lumbar spine, 0.027 at the hip, and 0.023 at the distal 1/3 radius. Electronically signed by: Vishal Goodson MD 08/18/2024 02:30 PM [facility]
== END 2024-08-18 10:12 | disposition home or self-care (01) ==
LOC: HO.MAMMO 10:11
PROVIDERS: PCP Internal Medicine; Visit Provider Internal Medicine
DX: Z13.820 Encounter for screening for osteoporosis (principal); Z78.0 Asymptomatic menopausal state
CPT/HCPCS: 77080

== ENCOUNTER → 2024-08-18 10:30 | Outpatient (BNV) | payer OTHER, SELFPAY | PROVIDERS: PCP Internal Medicine; Visit Provider Radiology Diagnostic Radiology | DX: E28.39 Other primary ovarian failure (principal) | CPT/HCPCS: 77080 ==

== ENCOUNTER 2024-09-06 08:54 | Outpatient (REF) | payer OTHER, SELFPAY ==
--- OUTSIDE RECORDS SUMMARY | 2024-09-07 09:07 | XMS_ITS | Clinical Summary ---
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 Active Multiple Vitamins-Minera ls (Multivitamin) liquid Active losartan (Cozaar) 25 MG tablet Take 1 tablet by mouth at bed time. Active lactulose (Chronulac) 10 GM/15ML solution Take 15 mL by mouth at bed time. Active furosemide (Lasix) 40 MG tablet Take 1 tablet by mouth at bed time. Active aspirin 81 MG chewable tablet Chew. Acti ve amoxicillin (Amoxil) 500 MG capsule take 1 capsule (500MG) by oral route every 8 hours until done 10/29/2016 Active acetaminophen (Tylenol) 500 MG tablet take 1 tablet (500MG) by oral route every 6 hours as needed 03/20/2017 Active Social History Tobacco Use Types Packs/Day Years Used Date Smoking Tobacco: Never Smokeless Tobacco: Never Tobacco Cessation:Counseling Given: Not Answered Alcohol Use Standard Drinks/Week Comments Never 0 (1 standard drink = 0.6 oz pur e alcohol) Comments Unknown Sex and Gender Information Value Date Recorded Sex Assigned at Female 06/03/2022 10:25 AM EDT Legal Sex Female 10:25 AM EDT Gender Identity Female 06/03/2022 10:25 AM EDT Sexual Orientation Straight 06/03/2022 10 :25 AM EDT Last Filed Vital Signs Vital Sign Reading Time Taken Comments Blood Pressure 132/88 05/28/2023 11:14 AM EDT Pulse - - Temperature - - Respiratory Rate - - Oxygen Saturation - - Inhaled Oxygen Concentration - - Weight - - Height - - Body Mass Index - - Plan of Treatment Upcoming Encounters Date Type Department Care Team (Late st Contact Info) Description 09/30/2024 10:30 AM EST Office Visit [facility] [address] [place] [address] Donovan Gonzalez, DMD [address] [place] [address] Health Maintenance Due Date Last Done Comments Depression Screening 1945 Lipid Panel 1945 SDOH Screening 1943 Alcohol/Substance Use Screening 1955 Zoster Vaccines (1 of 2) 12/22/1993 Dental X-Ray: Bitewings 06/19/2014 06/18/2013 Dental X-Ray: Full Mouth 06/19/2016 06/18/2013 Dental Oral Exam 07/21/2016 01/19/2016, 06/18/2013 Dental Prophylaxis 11/16/2016 05/17/2016, 10/26/2013 Pneumococcal Vaccine: 50+ Years (2 of 2 - PCV) 12/20/2016 12/21/2015 RSV Patients and Patients Aged 60 years or older (1 - 1-dose 75+ series) 12/22/2018 Tobacco Screening 05/28/2024 05/28/2023 DTaP/Tdap/Td Vaccines (1 - Tdap) 07/08/2024 07/07/2024 COVID-19 Vaccine Completed 04/23/2024, 10/2020, 09/02/2020 Influenza Vaccine Completed 04/23/2024, , 08/20/2022, Additional history exists HIB Vaccines Aged Out No longer eligi ble based on patient's age to complete this topic HPV Vaccines Aged Out No longer eligi ble based on patient's age to complete this topic Hepatitis A Vaccines Aged Out No long er eligible based on patient's age to complete this topic Hepatitis B Vaccines Aged Out No long er eligible based on patient's age to complete this topic IPV Vaccines Aged Out No longer eligi ble based on patient's age to complete this topic Meningococcal Vaccine Aged Out No alia sebastian eligible based on patient's age to complete this topic RSV under 20 months Aged Out No longe r eligible based on patient's age to complete this topic Rotavirus Vaccines Aged Out No longer eligible based on patient's age to complete this topic Procedures Procedure Name Priority Date/Time Associated Diagnosis Comments PROPHYLAXIS - ADULT Routine 05/17/2016 1 2:00 AM EDT PERIODIC ORAL EVALUATION - ESTABLISHED PATIENT Routine 01/19/2016 12:00 AM EDT DIAGNOSTIC - DIAGNOSTIC IMAGING - INTRAORAL - COMPREHENSIVE SERIES OF RADIOGRAPHIC IMAGES Routine 06/18/2013 12:00 AM EST from Last 3 Months or Most Recently Relevant to Health Maintenance Insurance DENTAL - [facility]
== END 2024-09-06 08:55 | disposition home or self-care (01) ==
LOC: HO.HOSX 08:54
PROVIDERS: Visit Provider Physician Assistant
DX: Z13.89 Encounter for screening for other disorder (principal)

== ENCOUNTER 2024-09-27 10:08 | Outpatient (AMB) | payer OTHER, SELFPAY ==
--- NOTE | 2024-09-27 10:21 | MHC.OFFVIS ---
Vital Signs 09/27/24 10:23 Height 5 ft 2 in Weight 216 lb 0.848 oz BMI 39.5 BP 132/66 Blood Pressure Location Rt brachial Position Sitting Pulse 62 Pulse Source Pulse Oximeter Pulse Oximetry (%) 96 Oxygen Delivery Method Room Air Intake Visit Reasons: 3 yrs Colonoscopy recall/Aby pt Intake Note: ESTABLISHED PATIENT for recall colo screening. Last 2020 via RM. 3rd lifetime + [address] Ashby (2012) Chief Complaint; C/O recent unintentional weight gain possibly due to dementia medication per REFRIGERATION ENGINEERING TEACHER. Pt has gained from 208 to 216 lbs in approximately 1.5 to 2 mos. Pt denies any additional concerns / sx. Body Straightener Required: Yes Allergies cat dander [CAT DANDER] Allergy (Intermediate, Verified 09/27/24 10:21) skin rash mite-Dermatophagoides farinae, skyla [DUST MITES] Allergy (Intermediate, Verified 09/27/24 10:21) watery itchy eyes, sneezing HPI HPI 3 yrs Colonoscopy recall/Aby pt: Details: LAST VISIT: Findings: Terminal Ileum: Not evaluated Cecum:? A 10 mm sessile polyp overlying a fold removed with a hot snare. Ascending Colon:? Scattered diverticulosis Transverse Colon:? Scattered diverticulosis Descending Colon:? Scattered diverticulosis Sigmoid Colon:? Severe diverticulosis with luminal narrowing Rectum:? Normal Ano-rectum:? Moderate internal hemorrhoids and fernando-anal skin tags Colon preparation:? Good? Impression and Post Procedure Diagnosis: Colonoscopy Findings: One medium sized polyp removed Moderate diverticulosis seen in the entire colon Moderate hemorrhoids on retroflexed exam. Plan: Await pathology results Repeat Colonoscopy interval based on path results - in 3 years if polyps are adenomatous and due to a hx of multiple colon polyps. PATHOLOGY RESULTS: Diagnosis Cecum, polypectomy: Small fragment of colonic mucosa with thermal artifact and features of tubular adenoma; no high-grade dysplasia or carcinoma seen TODAY'S VISIT Patient is here today to go for colonoscopy. Patient is overdue. Patient is accompanied by her daughter and her REFRIGERATION ENGINEERING TEACHER. Patient was diagnosed with dementia and is taking medication. Feels more constipated since starting. Is taking MiraLax and senna daily. Patient's daughter believes that she might not be able to go through with large amount of liquid. She might not follow through. Patient is pleasant, alert oriented to self and place. Most of questions are being inserted by REFRIGERATION ENGINEERING TEACHER. Patient denies any abdominal pain or discomfort. Denies melena, hematochezia. Denies any dyspepsia, dysphagia or odynophagia. Patient is on low-dose aspirin. Takes omeprazole daily. Her symptoms of acid reflux are suppressed. Denies dyspepsia, dysphagia or odynophagia. Denies any cardiac or respiratory symptoms. No trouble with anesthesia in the past. [facility] Medical History Dementia Multinodular goiter HX: breast cancer Thyroid disease Depression Obesity (BMI 30-39.9) Vitamin D deficiency Migraine GERD without esophagitis Anemia Asthma Pure hypercholesterolemia Environmental allergies Venous (peripheral) insufficiency Complex renal cyst Morbid obesity with BMI of 40.0-44.9, adult Gall stones Mild major depression Dyslipidemia Tremor of left hand Invasive ductal carcinoma of left breast Non-toxic multinodular goiter Lumbar degenerative disc disease Renal calculi Insomnia Constipation due to opioid therapy Essential hypertension Surgical History History of left cataract surgery Hx of varicose vein stripping Hx of cystoscopy Hx of biopsy H/O colonoscopy Hx of dilation and curettage History of esophagogastroduodenoscopy (EGD) Hx of hand surgery History of lumpectomy of left breast History of lithotripsy History of left knee replacement History of section Family History Father Medical history unknown Mother Lung cancer Colon cancer Social History Household Members: None Household Members Other:: daughter Housing: Apartment Are you a primary day care home provider to a significant other at home: No Do you presently have visiting nurse or other home services: Yes (REFRIGERATION ENGINEERING TEACHER) Alcohol intake: never Patient Tobacco Use Status: Never used Tobacco e-Cigarette/Vaping Use: Never Used Second Hand Smoke Exposure: No service: No 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al status: unemployed and disabled 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 Cognitive needs: Yes (cane, walker) Hearing needs: No Vision needs: Yes Review of Systems Const Denies weight gain and Denies weight loss ENT Reports no additional complaints, Denies dysphagia and Denies odynophagia Card Reports no additional complaints Resp Reports no additional complaints GI Denies abdominal pain, Denies belching, Denies melena, Denies bloating, Denies change in bowel habits, Denies dysphagia, Denies excessive flatus, Denies dyspepsia, Denies heartburn, Denies diarrhea, Denies loose stools, Denies nausea, Denies odynophagia and Denies vomiting Musc Reports no additional complaints Neuro Reports no additional complaints Psych Reports no additional complaints Endo Reports no additional complaints Physical Exam Vital Signs: Last Vital Signs Pulse 62 09/27/24 10:23 BP 132/66 09/27/24 10:23 Pulse Ox 96 09/27/24 10:23 Oxygen Delivery Method Room Air 09/27/24 10:23 BMI result Body Mass Index 39.5 Const General: healthy appearing, no acute distress and well developed Nutritional Appearance: obese Resp Effort & Inspection: normal respiratory effort, able to speak in complete sentences, no tracheal deviation and symmetric chest movement Auscultation: clear to auscultation bilaterally Cardio Rate: regular rate GI Inspection: Yes normal to inspection, No distended and Yes obesity Palpation (GI): Soft to palpation, not firm, nontender and No hepatosplenomegaly present Auscultation: normal bowel sounds General: Yes no CVA tenderness Back/Spine/Pelvis Back: no CVA tenderness Skin General skin exam: elasticity normal, turgor normal and dry skin Psych Appearance: grossly normal Mental Status: mental status grossly normal Assessment & Plan Assessment & Plan (1) History of colon polyps: Comment: History of colon polyps, repeat colonoscopy 3 years Code(s): Z86.010 - Personal history of colon polyps Category: Medical (2) GERD without esophagitis: Code(s): K21.9 - Gastro-esophageal reflux disease without esophagitis Category: Medical (3) Screen for colon cancer: Code(s): Z12.11 - Encounter for screening for malignant neoplasm of colon Plan Patient denies any GI, cardiac or respiratory symptoms.? Currently patient is taking omeprazole and her symptoms are well controlled. Patient denies dyspepsia, dysphagia or odynophagia. Patient is taking senna and MiraLax to help with bowel movements. Denies any issues with anesthesia in the past.? Denies any history of sleep apnea.? No history infectious diseases in the past or present.? Patient is on low-dose aspirin. Tubular adenoma on her last colonoscopy.? Patient denies melena, hematochezia, unintentional weight loss or ribbon like stools.? Discussed at length the pre-procedure,? prep, diet & medications as well as what to expect prior, during and after the procedure.? Patient has dementia and she might not be able to follow up with lengthy process. We will do Dulcolax and Mag citrate.? Stressed the importance of good bowel prep.? Recommended the use of Vaseline or Calmoseptine OTC & baby wipes with bowel movements to promote comfort.? ?Not sure if patient is able to follow instructions, however patient's REFRIGERATION ENGINEERING TEACHER is agreeable to plan of care and verbalizes understanding of instructions.? She was given the opportunity to ask questions and all questions answered.? We will see patient after the procedure.? Medications: New bisacodyl (Dulcolax (bisacodyl)) take 4 tabs at noon the day before your colonoscopy 20 mg (4 x 5 mg) PO ONCE 1 day 4 tabs 0RF Z12.11 - Encounter for screening for malignant neoplasm of colon magnesium citrate Drink one bottle at 17:00 and 2nd bottle at 22:00 296 mL PO ONCE 296 mL 1RF constipation Z12.11 - Encounter for screening for malignant neoplasm of colon Coding Level of Care Code New Pt Level 3 (01084) Diagnoses History of colon polyps Z86.010 GERD without esophagitis K21.9 Screen for colon cancer Z12.11 Time Spent (min) 40 Comment 30 minutes spent with the patient in additional 10 minutes spent reviewing her records
[2024-09-27 10:23] VITALS: BP 132/66; PULSE 62; O2SAT 96; BMI 39.5
--- OUTSIDE RECORDS SUMMARY | 2024-09-27 11:21 | XMS_ITS ---
Author Name MS. Savage Bhagat APRN Address [address] [place] [address] Phone [phone] [facility] Care Team Providers Care Dining Car Steward Name Role Phone Era Bhagat Unavailable [phone] Unavailable Unavailable Unavailable MELL SMITH Unavailable [phone] Reason for Referral Not Available Allergies, adverse reactions, alerts No known allergies History of medication use Medication Class Instructions Start Date End Date Ondansetron 4 mg Tab Disintegrating 1-2 tablet orally every 6 hours PRN 2022-05-20 No Data Available Omeprazole 20 mg Cap delayed rel TAKE 1 CAPSULE BY MOUTH DAILY 2021-06-20 No Data Available Gabapentin 100 mg Cap TAKE 1 CAPSULE BY MOUTH THREE TIMES DAILY 2021-10-05 2023-11-28 Nitrofurantoin Macrocrystal 100 mg Cap TAKE 1 CAPSULE BY MOUTH TWICE DAILY FOR 7 DAYS. TAKE WITH A MEAL/FOOD 2021-12-06 No Data Available Letrozole 2.5 mg Tab TAKE 1 TABLET BY MO UTH DAILY 2021-03-26 2024-08-31 traZODone 150 mg Tab TAKE 1 TABLET BY MO UTH AT BEDTIME NEEDED 2021-10-09 No Data Available Sertraline 100 mg Tab take 2 tablet by m out daily 2021-10-09 No Data Available Spiriva HandiHaler 18 MCG Cap INHALE THE CONTENTS OF 1 CAPSULE VIA INHALATION DEVICE DAILY 2021-12-18 2022-09-23 Montelukast Sodium 10 mg Tab TAKE 1 TABL ET BY MOUTH AT BEDTIME 2021-09-26 2024-08-31 oxyCODONE 5 mg Tab TAKE 1 TABLET BY AUDRA TH EVERY 8 HOURS NEEDED FOR PAIN 2021-12-24 No Data Available Pravastatin Sodium 20 mg Tab TAKE 1 TABL ET BY MOUTH AT BEDTIME 2021-07-06 2023-11-28 Olopatadine 0.1 % Solution INSTILL 1 TO 2 DROPS PER EYE UP TO TWICE DAILY 2021-12-26 No Data Available amLODIPine Besylate 10 mg Tab TAKE 1 TAB LET BY MOUTH DAILY 2021-01-29 No Data Available VITAMIN D3 1000 UNIT TABLETS TAKE 1 TABL ET BY MOUTH EVERY DAY 2022-01-20 No Data Available Aspirin Low Dose 81 mg Tab delayed rel TAKE 1 TABLET BY MOUTH DAILY 2022-01-20 No Data Available Fluticasone Propionate 50 MCG/ACT Suspension INHALE 2 SPRAYS INTO EACH NOSTRIL TWICE DAILY 2021-05-08 No Data Available Docusate Sodium 100 mg Cap TAKE ONE CAPS ULE BY MOUTH EVERY DAY NEEDED FOR CONSTIPATION 2022-01-29 2024-08-31 Lactulose 10 GM/15ML Solution TAKE 15ML BY MOUTH EVERY DAY NEEDED FOR CONSTIPATION 2022-02-06 2024-08-31 Cetirizine 10 mg Tab TAKE 1 TABLET BY MO UTH EVERY NIGHT AT BEDTIME 2022-02-11 No Data Available Losartan Potassium 100 mg Tab TAKE 1 TAB LET BY MOUTH DAILY 2021-08-14 No Data Available Furosemide 40 mg Tab TAKE 1 TABLET BY MO UTH DAILY 2021-11-20 No Data Available Albuterol Sulfate HFA 108 (9 0 Base) MCG/ACT Aerosol Solution INHALE 1 TO 2 PUFFS BY MOUTH EVERY 4 TO 6 HOURS NEEDED FOR SHORTNESS OF BREATH 2021-07-31 No Data Available Polyethylene Glycol 3350 17 GM/SCOOP Powder MIX AND TAKE 17 GRAMS BY MOUTH DAILY FOR CONSTIPATION 2022-03-26 No Data Available Amoxicillin 875 mg Tab TAKE 1 TABLET BY MOUTH EVERY 12 HOURS FOR 7 DAYS 2022-03-29 No Data Available Flauomuz-Kwvozwkoy-GB 3.5-43597-7 Suspension SHAKE LIQUID AND INSTILL 4 DROPPERFUL TO AFFECTED EAR EVERY 8 HOURS 2022-05-11 No Data Available Azithromycin 250 mg Tab TAKE 2 TABLETS B Y MOUTH FOR 1 DAY THEN TAKE 1 TABLET BY MOUTH DAILY FOR 4 DAYS 2022-05-11 No Data Available Fish Oil 1000 mg Cap 1 capsule orally 2 times per day 2022-05-23 No Data Available Daily Value Multivitamin Tab take 1 tabl et by mouth daily 2022-05-23 No Data Available Tylenol Extra Strength 500 m g Tab 1 tab TID 2022-05-23 No Data Available Trulicity 0.75 mg/0.5ML Solution Pen-injector Subcutaneous Administer subcutaneous once weekly. 2022-09-23 2023-11-28 Atorvastatin Calcium 80 mg Tab TAKE 1 TA BLET BY MOUTH AT BEDTIME 2023-06-18 No Data Available FeroSul 325 (65 Fe) MG Tab TAKE 1 TABLET BY MOUTH TWICE DAILY 2023-07-22 2023-11-28 methylPREDNISolone 4 mg Tab Therapy Pack FOLLOW PACKAGE DIRECTIONS 2023-07-31 2023-11-28 Cephalexin 500 mg Cap TAKE 1 CAPSULE BY MOUTH EVERY 12 HOURS 2023-08-28 No Data Available Ketotifen Fumarate 0.035 % Solution INSTILL 1 TO 2 DROPS INTO BOTH EYES UP TO TWICE DAILY 2023-11-28 No Data Available Senna 8.6 mg Tab TAKE 1 TABLET BY AUDRA TH AT BEDTIME NEEDED FOR CONSTIPATION 2024-02-02 No Data Available FeroSul 325 (65 Fe) MG Tab TAKE 1 TABLET BY MOUTH DAILY 2024-01-31 No Data Available Memantine 10 mg Tab take 1 tablet orally twice daily 2024-05-25 No Data Available SUMAtriptan Succinate 25 mg Tab TAKE 1 T ABLET BY MOUTH EVERY 2-4 HOURS NEEDED FOR MIGRAINE HEADACHE FOR 30 DAYS. DO NOT EXCEED 8 DOSES PER 24 HOURS 2024-08-05 No Data Available oxyCODONE-Acetaminophen 5/32 5 mg Tab take 1 tablet twice daily prn for pain 2024-08-31 No Data Available Problem List Problem Status Onset Date Resolved Date Gastritis Resolved 2022-05-20 2022-05-23 Neuropathic pain Active 2023-11-28 N/A Other problems related to [facility] facilities and other health care Active 2023-10-14 N/A Body mass index [BMI] 40.0-44.9, adult Active 25-05-19 N/A Major depressive disorder, recurrent, moderate Active 2022-05-23 N/A Severe persistent allergic a sthmaChronic obstructive pulmonary disease, unspecified Active 2023-11-28 N/A history of Malignant neoplas m of unspecified site of left female breast Active 2022-05-23 N/A Hyperlipidemia Active 2023-11-28 N/A Hypertension Active 2023-11-28 N/A Unspecified dementia, unspec ified severity, without behavioral disturbance, psychotic disturbance, mood disturbance, and anxiety Active 2024-08-31 N/A Encounters Encounters Type Facility Date of Service Diagnosis/Co mplaint No Data Available [facility], ([place]) [place]/20[place] Gastritis, unspecified, with out bleeding Pain Assessment - Pain Documented on a Pain Scale (1125F) [facility] ([place] [place] Pain Assessment - Pain Documented on a Pain Scale (1125F) [facility] [place] Pain Assessment - Pain Documented on a Pain Scale (1125F) [facility] [place] Pain Assessment - Pain Documented on a Pain Scale (1125F) [facility] [place] Pain Assessment - Pain Documented on a Pain Scale (1125F) [facility] [place] Pain Assessment - Pain Documented on a Pain Scale (1125F) [facility] [place] Pain Assessment - Pain Documented on a Pain Scale (1125F) [facility] [place] Pain Assessment - Pain Documented on a Pain Scale (1125F) [facility] [place] Pain Assessment - Pain Documented on a Pain Scale (1125F) [facility] [place]20[place] Chronic obstructive pulmonar y disease, unspecifiedMorbid (severe) obesity due to excess caloriesBody mass index (BMI) 40.0-44.9, adultMalignant neoplasm of unspecified site of left female breastType 2 diabetes mellitus with diabetic neuropathy, unspecifiedType 2 diabetes mellitus with other circulatory complicationsHypertension secondary to endocrine disordersType 2 diabetes mellitus with diabetic cataractType 2 diabetes mellitus with other specified complicationHyperlipidemia, unspecifiedMajor depressive disorder, recurrent, moderate Estab. patient 30-39min; chronic exacerbation, 2 stable chronic or 1 acute illness add add modifier 95 for video, (do not use for phone, instead use [id number]) [facility] ([place] Chronic obstructive pulmonar y disease, unspecifiedBody mass index (BMI) 40.0-44.9, adultMorbid (severe) obesity due to excess caloriesType 2 diabetes mellitus with diabetic neuropathy, unspecifiedType 2 diabetes mellitus with other circulatory complicationsHypertension secondary to endocrine disordersType 2 diabetes mellitus with diabetic cataractType 2 diabetes mellitus with other specified complicationHyperlipidemia, unspecifiedMajor depressive disorder, recurrent, moderate Estab. patient 30-39min; chronic exacerbation, 2 stable chronic or 1 acute illness add add modifier 95 for video, (do not use for phone, instead use [id number]) [facility] [place] Estab. patient 30-39min; chronic exacerbation, 2 stable chronic or 1 acute illness add add modifier 95 for video, (do not use for phone, instead use [id number]) [facility] [place] Estab. patient 30-39min; chronic exacerbation, 2 stable chronic or 1 acute illness add add modifier 95 for video, (do not use for phone, instead use 33048-62) [facility] [place] Estab. patient 30-39min; chronic exacerbation, 2 stable chronic or 1 acute illness add add modifier 95 for video, (do not use for phone, instead use 22582-96) [facility] ([place] Estab. patient 30-39min; chronic exacerbation, 2 stable chronic or 1 acute illness add add modifier 95 for video, (do not use for phone, instead use 81153-92) [facility] [place] Estab. patient 30-39min; chronic exacerbation, 2 stable chronic or 1 acute illness add add modifier 95 for video, (do not use for phone, instead use [id number]) [facility] [place] Estab. patient 30-39min; chronic exacerbation, 2 stable chronic or 1 acute illness add add modifier 95 for video, (do not use for phone, instead use 43212-27) [facility] [place] Estab. patient 30-39min; chronic exacerbation, 2 stable chronic or 1 acute illness add add modifier 95 for video, (do not use for phone, instead use 44201-10) [facility] ([place] 09[place]20[place] Estab. patient 30-39min; chronic exacerbation, 2 stable chronic or 1 acute illness add add modifier 95 for video, (do not use for phone, instead use 98250-84) [facility] ([place]/28/2023 Morbid (severe) obesity due to excess caloriesBody mass index (BMI) 40.0-44.9, adultOther problems related to medical facilities and other health careMalignant neoplasm of unspecified site of left female breastMajor depressive disorder, recurrent, moderateSevere persistent asthma, uncomplicatedNeuralgia and neuritis, unspecifiedEssential (primary) hypertensionHyperlipidemia, unspecified Estab. patient 30-39min; chronic exacerbation, 2 stable chronic or 1 acute illness add add modifier 95 for video, (do not use for phone, instead use 48781-47) [facility] [place] Estab. patient 30-39min; chronic exacerbation, 2 stable chronic or 1 acute illness add add modifier 95 for video, (do not use for phone, instead use 79104-01) [facility] [place] Estab. patient 30-39min; chronic exacerbation, 2 stable chronic or 1 acute illness add add modifier 95 for video, (do not use for phone, instead use 26390-40) [facility] [place] Estab. patient 30-39min; chronic exacerbation, 2 stable chronic or 1 acute illness add add modifier 95 for video, (do not use for phone, instead use 87038-82) [facility] [place] Estab. patient 30-39min; chronic exacerbation, 2 stable chronic or 1 acute illness add add modifier 95 for video, (do not use for phone, instead use 17698-28) [facility] ([place]20[place] Estab. patient 30-39min; chronic exacerbation, 2 stable chronic or 1 acute illness add add modifier 95 for video, (do not use for phone, instead use 32432-63) [facility] [place]20[place] Estab. patient 30-39min; chronic exacerbation, 2 stable chronic or 1 acute illness add add modifier 95 for video, (do not use for phone, instead use 68285-89) [facility] [place] Estab. patient 30-39min; chronic exacerbation, 2 stable chronic or 1 acute illness add add modifier 95 for video, (do not use for phone, instead use 89453-27) [facility] [place] Estab. patient 20-29min; 1 stable chronic or 2 minor; add add modifier 95 for video, modifier 93 for phone [facility] [place]2024 Morbid (severe) obesity due to excess caloriesSevere persistent asthma, uncomplicatedChronic obstructive pulmonary disease, unspecifiedMajor depressive disorder, recurrent, moderateUnspecified dementia without behavioral disturbanceHyperlipidemia, unspecifiedNeuralgia and neuritis, unspecifiedEssential (primary) hypertensionOther problems related to medical facilities and other health carePersonal history of malignant neoplasm of breast Estab. patient 20-29min; 1 stable chronic or 2 minor; add add modifier 95 for video, modifier 93 for phone [facility] [place] Estab. patient 20-29min; 1 stable chronic or 2 minor; add add modifier 95 for video, modifier 93 for phone [facility] ([place] 08[place]/20[place] Estab. patient 20-29min; 1 stable chronic or 2 minor; add add modifier 95 for video, modifier 93 for phone [facility] [place] Estab. patient 20-29min; 1 stable chronic or 2 minor; add add modifier 95 for video, modifier 93 for phone [facility] [place] Estab. patient 20-29min; 1 stable chronic or 2 minor; add add modifier 95 for video, modifier 93 for phone [facility] ([place] 08/31/20[place] Estab. patient 20-29min; 1 stable chronic or 2 minor; add add modifier 95 for video, modifier 93 for phone [facility] [place] 08[place] Estab. patient 20-29min; 1 stable chronic or 2 minor; add add modifier 95 for video, modifier 93 for phone [facility] [place]/2024 Vital Signs Date of Collection Vitals 2022-05-23 07:11:36 Height - 157.48 cmWe ight - 105.23 kgBody Mass Index (BMI) - 42.43 kg/m2BP Diastolic - 85.0 mm[Hg]BP Systolic - 147.0 mm[Hg] 2022-09-23 08:04:54 Height - 157.48 cmBP Diastolic - 76.0 mm[Hg]BP Systolic - 127.0 mm[Hg]Heart Rate - 68.0 /min 2023-11-28 08:11:27 Weight - 93.44 kgBod y Mass Index (BMI) - 37.68 kg/m2BP Diastolic - 60.0 mm[Hg]BP Systolic - 128.0 mm[Hg] 2024-08-31 07:46:29 Weight - 94.35 kgBod y Mass Index (BMI) - 38.04 kg/m2BP Diastolic - 90.0 mm[Hg]BP Systolic - 143.0 mm[Hg] Social History Social History Social History Observation Description Effec tive Time Current Smoking Status Never smoker 2024-09-05 4 Sex Female History of Procedures Procedures Service Procedure code Service date Servicing provider Phone# No Data Available [id number] 2022-05-20 No Data Available No Data Available Pain Assessment - Pain Documented on a Pain Scale (1125F) 1125F 2022-05-23 No Data Available No Data Shereen ilable Medication List Documented (1159F) 1159F 2022-05-23 No Data Available No Data Shereen ilable Medication Review by prescribing provider or pharmacist documented (1160F) 1160F 2022-05-23 No Data Available No Data Shereen ilable Functional Status Assessed (1170F) 1170F 2022-05-23 No Data Available No Data Avail able Advance Care Directive Advance care planning discussion documented in the medical record (1158F) 1158F 2022-05-23 No Data Available No Data Availa ble BMI obtained (3008F) 3008F 2022-05-23 No Data Availab le No Data Available SBP >= 140 3077F 2022-05-23 No Data Available No Data Available DBP 80-89 (3079F) 3079F 2022-05-23 No Data Available No Data Available New patient,40-59min; chronic exacerbation, 2 stable chronic or 1 acute illness add add modifier 95 for video (do not use for phone, instead use 87539-82) 23519 2022-05-23 No Data Available No Data Availa ble Estab. patient 30-39min; chronic exacerbation, 2 stable chronic or 1 acute illness add add modifier 95 for video, (do not use for phone, instead use 67477-78) 90340 2022-09-23 No Data Available No Data Availa ble Medication List Documented (1159F) 1159F 2022-09-23 No Data Available No Data Shereen ilable Medication Review by prescribing provider or pharmacist documented (1160F) 1160F 2022-09-23 No Data Available No Data Shereen ilable Functional Status Assessed (1170F) 1170F 2022-09-23 No Data Available No Data Avail able Advance Care Directive Advance care planning discussion documented in the medical record (1158F) 1158F 2022-09-23 No Data Available No Data Availa ble BMI obtained (3008F) 3008F 2022-09-23 No Data Availab le No Data Available SBP < 130 (3074F) 3074F 2022-09-23 No Data Available No Data Available DBP <80 (3078F) 3078F 2022-09-23 No Data Available No Data Available Pain Assessment - Pain Documented on a Pain Scale (1125F) 1125F 2022-09-23 No Data Available No Data Shereen ilable Estab. patient 30-39min; chronic exacerbation, 2 stable chronic or 1 acute illness add add modifier 95 for video, (do not use for phone, instead use 25475-50) 36158 2023-11-28 No Data Available No Data Availa ble Medication List Documented (1159F) 1159F 2023-11-28 No Data Available No Data Shereen ilable Medication Review by prescribing provider or pharmacist documented (1160F) 1160F 2023-11-28 No Data Available No Data Shereen ilable BMI obtained (3008F) 3008F 2023-11-28 No Data Availab le No Data Available Advance Care Directive Advance care planning discussion documented in the medical record (1158F) 1158F 2023-11-28 No Data Available No Data Availa ble Advance care planning discussed and documented ? advance care plan or surrogate decision-maker was documented in the medical record. (1123F) 1123F 2023-11-28 No Data Available No Data Availa ble SBP < 130 (3074F) 3074F 2023-11-28 No Data Available No Data Available DBP <80 (3078F) 3078F 2023-11-28 No Data Available No Data Available Functional Status Assessed (1170F) 1170F 2023-11-28 No Data Available No Data Avail able Estab. patient 20-29min; 1 stable chronic or 2 minor; add add modifier 95 for video, modifier 93 for phone 35139 2024-08-31 No Data Available No Data Availa ble Medication List Documented (1159F) 1159F 2024-08-31 No Data Available No Data Shereen ilable Medication Review by prescribing provider or pharmacist documented (1160F) 1160F 2024-08-31 No Data Available No Data Shereen ilable Functional Status Assessed (1170F) 1170F 2024-08-31 No Data Available No Data Avail able Advance Care Directive Advance care planning discussion documented in the medical record (1158F) 1158F 2024-08-31 No Data Available No Data Availa ble Advance care planning discussed and documented ? advance care plan or surrogate decision-maker was documented in the medical record. (1123F) 1123F 2024-08-31 No Data Available No Data Availa ble SBP >= 140 3077F 2024-08-31 No Data Available No Data Available DBP >=90 3080F 2024-08-31 No Data Available No Data Available Functional Status Functional Category Effective Dates Cognition Status: Oriented to Person, Pl gloria and Time 2022-05-23 ADL Eating: Independent; Amb ulation: Independent/cane or walker; Dressing: Some Help Needed; Bathing: Some Help Needed; Toileting: Independent 2022-05-23 IADL Shopping: Housekeeping: Meal Prep: Medications Management: Total Assist 2022-05-23 Falls in last 6 Months: No 2022-05-23 Mental Status Status Date AAO*2 2024-08-31 Assessments Date of Service Assessments 2022-05-20 10:27:36 Follow up plan for a cute symptoms:Gastritis 2022-05-23 07:11:36 Chronic obstructive pulmonary disease, unspecifiedBody mass index [BMI] 40.0-44.9, adultMalignant neoplasm of unspecified site of left female breastType 2 diabetes mellitus with diabetic neuropathyHypertension associated with type 2 diabetes mellitusType 2 diabetes mellitus with diabetic cataractHyperlipidemia associated with type 2 diabetes mellitusMajor depressive disorder, recurrent, moderate 2022-09-23 08:04:54 Chronic obstructive pulmonary disease, unspecifiedBody mass index [BMI] 40.0-44.9, adultMalignant neoplasm of unspecified site of left female breastType 2 diabetes mellitus with diabetic neuropathyHypertension associated with type 2 diabetes mellitusType 2 diabetes mellitus with diabetic cataractHyperlipidemia associated with type 2 diabetes mellitusMajor depressive disorder, recurrent, moderate 2023-11-28 08:11:27 Body mass index [BMI ] 40.0-44.9, adultOther problems related to medical facilities and other health carehistory of Malignant neoplasm of unspecified site of left female breastMajor depressive disorder, recurrent, moderateSevere persistent allergic asthmaNeuropathic painHypertensionHyperlipidemia 2024-08-31 07:46:29 Other problems relat ed to medical facilities and other health careBody mass index [BMI] 40.0-44.9, adultSevere persistent allergic asthmaChronic obstructive pulmonary disease, unspecifiedMajor depressive disorder, recurrent, moderateUnspecified dementia, unspecified severity, without behavioral disturbance, psychotic disturbance, mood disturbance, and anxietyhistory of Malignant neoplasm of unspecified site of left female breastHyperlipidemiaNeuropathic painHypertensionOther problems related to medical facilities and other health care Plan of Care Date of Service Plans 2022-05-20 10:27:36 Phone (patient, pare nt, or guardian); 5-10 minutes of medical discussion (no modifier 95)Continue to see PCP. Follow-up with [facility] as needed for any acute or disease education needs that may arise 24/02.05/20/22:- Likely viral illness. Advised daughter to push fluids, and if Estefany does not feel like eating and wants to sleep that is okay, As long as she can take her medications. - Camelia sent in for nausea- Encouraged her to call back if symptoms worsen or do not improve in 24h. 2022-05-23 07:11:36 Pain Assessment - Pa in Documented (1125F)Medication Review by prescribing provider or pharmacist documented (1160F)Medication List Documented (1159F)Functional Status Assessed (1170F)Advance Care Directive Advance care planning discussion documented in the medical record (1158F)BMI obtained (3008F)SBP >= 140DBP 80-89 (3079F)Televideo new patient,40-59min; chronic exacerbation, 2 stable chronic or 1 acute illness add modifier 95Continue to see PCP. [facility] with [facility] as needed for any acute or disease education needs that may arise.RX: Albuterol inhaler, tiotropium bromideBMI: 42.43Discussed healthier eating optionsIncreasing physical activityRX: letrozoleRemission x 6 yearsLast Mammogram 03/2022 - WNL per daughterRX: GabapentinDoes not take diabetic medication - diet controlledDoes not check BGL.RX: amlodipine, losartan, furosemideChecks B/P daily 147/85 (05/23/22)RX: OlopatadineDoes not check BGL.RX: pravastatinDoes not check BGL.RX: Sertraline, trazadoneMood well controlled, denies SI/HI. 2022-09-23 08:04:54 Medication Review by prescribing provider or pharmacist documented (1160F)Medication List Documented (1159F)Functional Status Assessed (1170F)Advance Care Directive Advance care planning discussion documented in the medical record (1158F)BMI obtained (3008F)SBP < 130 (3074F)DBP <80 (3078F)Televideo 30-39min; chronic exacerbation, 2 stable chronic or 1 acute illness add modifier 95Pain Assessment - Pain Documented (1125F)Medication List Documented (1159F)Continue to see PCP. Follow-up with [facility] as needed for any acute or disease education needs that may arise.RX: Albuterol inhalerBMI: 42.43Discussed healthier eating optionsIncreasing physical activityRX: letrozoleRemission x 6 yearsLast Mammogram 03/2022 - WNL per daughterRX: GabapentinDoes not take diabetic medication - diet controlledDoes not check BGL.started on Trulicity weekly and daughter stated she has a follow up with primary for this new medication and Mom has tolerated it well.RX: amlodipine, losartan, furosemideChecks B/P daily 147/85 (05/23/22)09/23/2022-Blood pressure was fluctuating but daughter believes it was due to migraine her Mom was experiencing.RX: OlopatadineDoes not check BGL.RX: pravastatinDoes not check BGL.RX: Sertraline, trazadoneMood well controlled, denies SI/HI. 2023-11-28 08:11:27 Medication Review by prescribing provider or pharmacist documented (1160F)Medication List Documented (1159F)Functional Status Assessed (1170F)Advance Care Directive Advance care planning discussion documented in the medical record (1158F)BMI obtained (3008F)SBP < 130 (3074F)DBP <80 (3078F)Televideo 30-39min; chronic exacerbation, 2 stable chronic or 1 acute illness add modifier 95Advance care planning discussed and documented ? advance care plan or surrogate decision-maker was documented in the medical record. (1123F)Pain Assessment - Pain Documented (1125F)Continue to see [facility]CP. [facility] for any acute or disease education needs that may arise.11/28/23 BMI: 37.68Discussed healthier eating optionsIncreasing physical activityWhen member to call: 1. If bp is elevated sbp>150; dbp>90 or symptomatic-h/a, dizziness, cp, sob. 2. if there is a fall 3. if BS >300 or BS<90 or symptomatic; i.e., dizzy, off balance , shaky, general weakness. 4. if UTI symptoms arise-urinary frequency, dysuria, low abd pain. 5. if pain in knees increases/ or joint pain increased Please remember to call [facility] to see [facility]CP. [facility] for any acute or disease education needs that may arise 24/02.what should be done when the member calls: see each individual diagnosis for contingency planRX: letrozoleRemission x 8 yearsLast Mammogram 03/2022 - WNL per daughterRX: Sertraline, trazadoneMood well controlled, denies SI/HI.11/28/23 PHQ-4=0Taking PRN albuterol, fluticasone proprionate, montelukast, centirizine, olapatadine11/28/23: The patient's daughter denies pt having dx of COPD. She reports patient has severe allergies. Followed by a specialist. She reports that the olapatadine was recently not covered by the insurance and she called PCP office today for f/u.Daughter reports gabapentin was recently d/c'dtaking losartan, amlodipineBP 128/60taking atorvastatin11/2022: Total Chol 185, HDL 51, LDL 120 2024-08-31 07:46:29 Functional Status As sessed (1170F)Advance Care Directive Advance care planning discussion documented in the medical record (1158F)Advance care planning discussed and documented ? advance care plan or surrogate decision-maker was documented in the medical record. (1123F)SBP >= 140DBP >=90Estab. patient 20-29min; 1 stable chronic or 2 minor; add add modifier 95 for video, modifier 93 for phoneMedication List Documented (1159F)Medication Review by prescribing provider or pharmacist documented (1160F)Continue to see PCP. Follow-up with [facility] as needed for any acute or disease education needs that may arise.<Add contingency plans here>BMI: 38Discussed healthier eating optionsIncreasing physical activityRx: PRN albuterol, fluticasone proprionate, montelukast, centirizine, olapatadineShe reports patient has severe allergies. Followed by a specialist. She reports that the olapatadine was recently not covered by the insurance and she called PCP office today for f/u.Rx: Sertraline, trazadoneNotify provider with any changes in behavior, difficulty sleeping, or new/worsening depressive symptoms.Continue to follow up with PCPRx: MemantineCurrent condition: stable at this time, intermittent forgetfulness Managed by PCP/NeuroReassure the person, Respect the person? s personal space. Build quiet times into the day, along with activitiesRx: letrozole (discontinued)Remission many yearsMammogram 03/2022 - WNL per daughterRx: Atorvastatin11/2022: Total Chol 185, HDL 51, LDL 120Daughter reports gabapentin was recently d/c'dRx: losartan, amlodipineEncourage low sodium diet. Encouraged daily blood pressure checks and tracking. Instructed patient to notify CB or PCP if blood pressure >140/90 or <90/50.Continue to follow up with PCPWhen member to call: 1. If bp is elevated sbp>150; dbp>90 or symptomatic-h/a, dizziness, cp, sob. 2. if there is a fall 3. if BS >300 or BS<90 or symptomatic; i.e., dizzy, off balance , shaky, general weakness. 4. if UTI symptoms arise-urinary frequency, dysuria, low abd pain. 5. if pain in knees increases/ or joint pain increased Please remember to call CBContinue to see PCP. Follow-up with [facility] as needed for any acute or disease education needs that may arise 24/02.what should be done when the member calls: see each individual diagnosis for contingency planAt least 50% of time spent counseling patient, discussing diagnosis, treatment plan, complicance, and coordinating follow up care. Goals Date Goal 2022-05-23 Remember to keep all appointments with your PCP. 2022-05-23 Call if you have que stions or concerns before going to the ER. 2022-05-23 Discussed how to con tact [facility] via phone or tablet. 2022-09-23 Keep follow up to re view changes with medications and update physician on Moms status at follow up. 2022-09-23 Continue to closely monitor blood pressure at home and share at upcoming doctors visits-also check calibration with manual cuff in doctors office too. 2024-08-31 Continue taking medi cations as directed and keep all follow up appointments with established PCP and Specialist. Health Concerns Date Concern 2024-08-31 Visit completed chelsi abrams audio/video.Patient/Guardian agreed to visit via telehealth. Today, patient has chief complaint of: follow up care and comprehensive review.Reviewed Allergies, Medications, Active Medical conditions, past medical/surgical history, Social history. 2024-08-31 Most recent hospital stay(s) or ER visit(s) and precipitating factors: denies
--- OUTSIDE RECORDS SUMMARY | 2024-09-27 11:21 | XMS_ITS | Clinical Summary ---
Author Organization [employer] Address [address] [place] [address] [address] [place] [address] Care Team Providers Care Chain Offbearer Name Role Phone Unavailable Primary Care Provider [...] Description 09/30/2024 10:30 AM EST Office Visit [facility] ADULT DENTAL [address] [place] [address] Donovan Gonzalez, DMD [address] [place] [address] Health Maintenance Due Date Last Done Comments [...] ESTABLISHED PATIENT Routine 01/19/2016 12:00 AM EDT INTRAORAL - COMPLETE SERIES OF RADIOGRAPHIC IMAGES Routine 06/18/2013 12:00 AM EST from Last 3 Months or Most Recently Relevant to Health Maintenance Insurance DENTAL - [facility]
== END 2024-09-27 11:04 | disposition home or self-care (01) ==
PROVIDERS: PCP Internal Medicine; Visit Provider Nurse Practitioner Family
DX: K21.9 Gastro-esophageal reflux disease without esophagitis (principal); Z12.11 Encounter for screening for malignant neoplasm of colon; Z86.0100 Personal history of colon polyps, unspecified
CPT/HCPCS: 99203

== ENCOUNTER → 2024-09-27 10:08 | Outpatient (BNVA) | payer OTHER, SELFPAY | PROVIDERS: PCP Internal Medicine; Visit Provider Nurse Practitioner Family | DX: Z12.11 Encounter for screening for malignant neoplasm of colon (principal); K21.9 Gastro-esophageal reflux disease without esophagitis; Z86.0100 Personal history of colon polyps, unspecified | CPT/HCPCS: 99202 ==

== ENCOUNTER 2024-10-06 08:18 | Outpatient (REF) | payer OTHER, SELFPAY ==
--- NOTE | ~2024-10-06 | XR_ITS ---
EXAMINATION: XR KNEE 3 VIEWS RIGHT HISTORY: M17.11 - Unilateral primary osteoarthritis, right knee COMPARISON: Comparison is made with the prior examination dated 11/22/2020. FINDINGS: Standing AP views of the bilateral knees and additional lateral and sunrise patellar views of the right knee are submitted. Osseous mineralization is normal. There is no fracture or dislocation. Again seen is severe osteoarthritis of the medial and patellofemoral compartments, with joint space narrowing and osteophyte formation. The soft tissues are unremarkable. The patient is status post left total knee arthroplasty. XR/XR knee RT 3V IMPRESSION: Severe osteoarthritis of the right knee as described. Electronically signed by: Vishal Goodson MD 10/11/2024 08:46 AM EDT
--- OUTSIDE RECORDS SUMMARY | 2024-10-06 08:42 | XMS_ITS | Clinical Summary ---
Author Organization [employer] Address [address] [place] [address] [address] [place] [address] Care Team Providers Care Hr Business Partner Consultant Name Role Phone Unavailable Primary Care Provider [...] every 6 hours as needed 03/20/2017 Active Encounters Date Type Department Care Team Description 09/30/2024 10:30 AM EST Office Visit [facility] ADULT DENTAL [address] [place] [address] Donovan Gonzalez DMD from Last 3 Months Social History Tobacco Use Types Packs/Day Years [...] Sign Reading Time Taken Comments Blood Pressure 120/80 09/30/2024 10:33 AM EST Pulse - - Temperature - - Respiratory Rate - - Oxygen Saturation - - Inhaled Oxygen Concentration - - Weight - - Height - - Body Mass Index - - Plan of Treatment Upcoming Encounters Date Type Department Care Team ([facility] st Contact Info) Description 11/24/2024 9:00 AM EDT Office Visit [facility] ADULT DENTAL [address] [place] [address] Peter Jack, DMD [address] [place] [address] Health Maintenance Due Date Last Done Comments [...] older (1 - 1-dose 75+ series) 12/22/2018 DTaP/Tdap/Td Vaccines (1 - Tdap) 07/08/2024 07/07/2024 Tobacco Screening 09/30/2025 09/30/2024 COVID-19 Vaccine Completed 04/23/2024, 10/2020, 09/02/2020 Influenza [...] Procedure Name Priority Date/Time Associated Diagnosis Comments DENTURE FOLLOWUP Routine 09/30/2024 10:3 0 AM EST PROPHYLAXIS - ADULT Routine 05/17/2016 1 2:00 AM EDT PERIODIC ORAL EVALUATION - ESTABLISHED PATIENT Routine 01/19/2016 12:00 AM EDT INTRAORAL - COMPLETE SERIES OF RADIOGRAPHIC IMAGES Routine 06/18/2013 12:00 AM EST from Last 3 Months or Most Recently Relevant to Health Maintenance Insurance DENTAL - [facility]
--- OUTSIDE RECORDS SUMMARY | 2024-10-06 08:42 | XMS_ITS ---
Author Name MS. Savage Bhagat APRN Address [address] [place] [address] Phone [phone] [facility] Care Team Providers Care Veneer Drier Name Role Phone Era Bhagat Unavailable [phone] MELL SMITH Unavailable [phone] Reason for Referral Not Available Allergies, adverse [...] FOR 7 DAYS 2022-03-29 No Data Available [id number]-[id number] Suspension SHAKE LIQUID AND INSTILL 4 DROPPERFUL [...] Active 2023-11-28 N/A Other problems related to [facility] facilities and other health care Active 2023-10-14 [...] of Service Diagnosis/Co mplaint No Data Available [facility] [place]20[place] Gastritis, unspecified, with out bleeding Pain Assessment - Pain Documented on a Pain Scale (1125F) [facility] [place]20[place] Pain Assessment - Pain Documented on a Pain Scale (1125F) [facility] [place]20[place] Pain Assessment - Pain Documented on a Pain Scale (1125F) [facility] [place]20[place] Pain Assessment - Pain Documented on a Pain Scale (1125F) [facility] [place]20[place] Pain Assessment - Pain Documented on a Pain Scale (1125F) [facility] [place]2022 Pain Assessment - Pain Documented on a Pain Scale (1125F) [facility] [place] 05[place]2022 Pain Assessment - Pain Documented on a Pain Scale (1125F) [facility] [place] 05[place]2022 Pain Assessment - Pain Documented on a Pain Scale (1125F) [facility] [place] 05[place]23/2022 Pain Assessment - Pain Documented on a Pain Scale (1125F) [facility] [place] 05[place]2022 Chronic obstructive pulmonar [...] (do not use for phone, instead use 56031-77) [facility] [place] 09[place]20[place] Chronic obstructive pulmonar y [...] (do not use for phone, instead use 86823-52) [facility], ([place] 09[place]23/20[place] Estab. patient 30-39min; chronic exacerbation, 2 stable chronic or 1 acute illness add add modifier 95 for video, (do not use for phone, instead use 57396-65) [facility] [place]20[place] Estab. patient 30-39min; chronic exacerbation, 2 stable chronic or 1 acute illness add add modifier 95 for video, (do not use for phone, instead use 87632-99) [facility]20[place] Estab. patient 30-39min; chronic exacerbation, 2 stable chronic or 1 acute illness add add modifier 95 for video, (do not use for phone, instead use 21005-79) [facility] [place] 09[place]23/20[place] Estab. patient 30-39min; chronic exacerbation, 2 stable chronic or 1 acute illness add add modifier 95 for video, (do not use for phone, instead use 22318-52) [facility] [place]/20[place] Estab. patient 30-39min; chronic exacerbation, 2 stable chronic or 1 acute illness add add modifier 95 for video, (do not use for phone, instead use 65126-50) [facility] [place]20[place] Estab. patient 30-39min; chronic exacerbation, 2 stable chronic or 1 acute illness add add modifier 95 for video, (do not use for phone, instead use 28927-34) [facility] [place] 09[place]/20[place] Estab. patient 30-39min; chronic exacerbation, 2 stable chronic or 1 acute illness add add modifier 95 for video, (do not use for phone, instead use 07881-47) [facility] [place] 09[place]/20[place] Estab. patient 30-39min; chronic exacerbation, 2 stable chronic or 1 acute illness add add modifier 95 for video, (do not use for phone, instead use 17528-25) [facility] [place] 11/28/2023 Morbid (severe) obesity due to excess [...] (do not use for phone, instead use 85297-97) [facility] [place]/28/2023 Estab. patient 30-39min; chronic exacerbation, 2 stable chronic or 1 acute illness add add modifier 95 for video, (do not use for phone, instead use 69425-69) [facility] [place] 11/28/2023 Estab. patient 30-39min; chronic exacerbation, 2 stable chronic or 1 acute illness add add modifier 95 for video, (do not use for phone, instead use 34254-99) [facility] [place] 11/28/2023 Estab. patient 30-39min; chronic exacerbation, 2 stable chronic or 1 acute illness add add modifier 95 for video, (do not use for phone, instead use 28078-04) [facility] [place] 11/28/2023 Estab. patient 30-39min; chronic exacerbation, 2 stable chronic or 1 acute illness add add modifier 95 for video, (do not use for phone, instead use 03499-80) [facility]/20[place] Estab. patient 30-39min; chronic exacerbation, 2 stable chronic or 1 acute illness add add modifier 95 for video, (do not use for phone, instead use 91881-89) [facility] [place]/2023 Estab. patient 30-39min; chronic exacerbation, 2 stable chronic or 1 acute illness add add modifier 95 for video, (do not use for phone, instead use 54448-63) [facility] [place] 11/28/2023 Estab. patient 30-39min; chronic exacerbation, 2 stable chronic or 1 acute illness add add modifier 95 for video, (do not use for phone, instead use 52113-74) [facility] [place] 11/28/2023 Estab. patient 20-29min; 1 stable chronic or 2 minor; add add modifier 95 for video, modifier 93 for phone [facility] [place] 08[place]/2024 Morbid (severe) obesity due to excess caloriesSevere persistent asthma, uncomplicatedChronic obstructive pulmonary disease, unspecifiedMajor depressive disorder, recurrent, moderateUnspecified dementia without behavioral disturbanceHyperlipidemia, unspecifiedNeuralgia and neuritis, unspecifiedEssential (primary) hypertensionOther problems related to medical facilities and other health carePersonal history of malignant neoplasm of breast Estab. patient 20-29min; 1 stable chronic or 2 minor; add add modifier 95 for video, modifier 93 for phone [facility] [place]20[place] Estab. patient 20-29min; 1 stable chronic or 2 minor; add add modifier 95 for video, modifier 93 for phone [facility] [place] 08/[place]/20[place] Estab. patient 20-29min; 1 stable chronic or 2 minor; add add modifier 95 for video, modifier 93 for phone [facility] [place] 08/[place]/20[place] Estab. patient 20-29min; 1 stable chronic or 2 minor; add add modifier 95 for video, modifier 93 for phone [facility] [place] 08/31/2024 Estab. patient 20-29min; 1 stable chronic or 2 minor; add add modifier 95 for video, modifier 93 for phone [facility] [place] 08/31/2024 Estab. patient 20-29min; 1 stable chronic or 2 minor; add add modifier 95 for video, modifier 93 for [facility], [place] 08/31/2024 Estab. patient 20-29min; 1 stable chronic or 2 minor; add add modifier 95 for video, modifier 93 for phone [facility] [place] 08/[place]/2024 Vital Signs Date of Collection Vitals [...] tive Time Current Smoking Status Never smoker 5 Sex Female History of Procedures Procedures Service Procedure code Service date Servicing provider Phone# No Data Available [id number] 2022-05-20 No Data Available No Data Available [...] (do not use for phone, instead use 10087-20) [id number] 2022-05-23 No Data Available No Data Availa ble Estab. patient 30-39min; chronic exacerbation, 2 stable chronic or 1 acute illness add add modifier 95 for video, (do not use for phone, instead use 53393-78) [id number] 2022-09-23 No Data Available No Data Availa [...] (do not use for phone, instead use 70954-64) [id number] 2023-11-28 No Data Available No Data Availa [...] 95 for video, modifier 93 for phone [id number] 2024-08-31 No Data Available No Data Availa [...] modifier 95Continue to see PCP. Follow-up with [facility] as [...] Documented (1159F)Continue to see PCP. Follow-up with [facility] as [...] Documented (1125F)Continue to see PCP. Follow-up with [facility] as [...] joint pain increased Please remember to call [facility] to see PCP. Follow-up with [facility] as [...]
--- OUTSIDE RECORDS SUMMARY | 2024-10-06 08:42 | XMS_ITS | Encounter Summary ---
Author Organization [facility] Address [address] [place] [id number] Care Team Providers Care Dolly Driver Name Role Phone Unavailable Primary Care Provider Unavailabl e Reason for Visit * Reason Comments Dental Pain Dentures Lower dentures disco mfort Encounter Details Date Type Department Care Team ([facility] Contact Info) Description 09/30/2024 10:30 AM EST Office Visit [facility] ADULT DENTAL [address] [place] [address] Donovan Gonzalez DMD [address] [place] [address] Social History Tobacco Use Types Packs/Day Years Used Date Smoking Tobacco: Never Smokeless Tobacco: Never Alcohol Use Standard Drinks/Week Comments Never 0 (1 standard drink = 0.6 oz pur e alcohol) Comments Unknown Sex and Gender Information Value Date Recorded Sex Assigned at Female 06/03/2022 10:25 AM EDT Legal Sex Female 10:25 AM EDT Gender Identity Female 06/03/2022 10:25 AM EDT Sexual Orientation Straight 06/03/2022 10 :25 AM EDT documented as of this encounter Last Filed Vital Signs Vital Sign Reading Time Taken Comments Blood Pressure 120/80 09/30/2024 10:33 AM EST Pulse - - Temperature - - Respiratory Rate - - Oxygen Saturation - - Inhaled Oxygen Concentration - - Weight - - Height - - Body Mass Index - - documented in this encounter Progress Notes * Donovan Gonzalez DMD - 09/30/2024 10:30 AM EST C/C: sore spot at LR posterior lingual area of /F because of the pillo I.O.E: sensitive to palpation at LR óscar pillo, loose /F E.O.E: wnl Radiographic: none Dx: óscar ipllo Tx: consult with O.S. regarding LR and LL óscar pillo removal Pt would also like to have these pillo remove Douglas documented in this encounter Plan of Treatment Upcoming Encounters Date Type Department Care Team (Late st Contact Info) Description 11/24/2024 9:00 AM EDT Office Visit [facility] ADULT DENTAL [address] [place] [address] Peter Jack DMD [address] [place] [address] Scheduled Orders Name Type Priority Associated Diagnoses Orde r Schedule CONSULTATION - DIAGNOSTIC SERVICE PROVIDED BY DENTIST OR PHYSICIAN OTHER THAN REQUESTING DENTIST OR PHYSICIAN Dental Routine 1 Occurrenc es starting 09/30/2024 LL LL REMOVAL OF TORUS MANDIBULARIS Dental Routine [address] arting 09/30/2024 LR LR REMOVAL OF TORUS MANDIBULARIS Dental Routine [address] arting 09/30/2024 documented as of this encounter Procedures Procedure Name Priority Date/Time Associated Diagnosis Comments DENTURE FOLLOWUP Routine 09/30/2024 10:30 AM EST documented in this encounter Visit Diagnoses Not on filedocumented in this encounter
== END 2024-10-06 08:19 | disposition home or self-care (01) ==
LOC: HO.HOSX 08:18
PROVIDERS: Visit Provider Physician Assistant
DX: M17.11 Unilateral primary osteoarthritis, right knee (principal)
CPT/HCPCS: 20610; 73562; 99212; J1010; J2003

== ENCOUNTER 2024-10-06 11:27 | Outpatient (AMB) | payer OTHER, SELFPAY ==
--- NOTE | 2024-10-06 11:37 | A.OFFVIS_ITS ---
Vital Signs 10/06/24 11:54 Height 5 ft 2 in Weight 216 lb BMI 39.5 Intake Visit Reasons: OV-RT knee OA, last injection on 10/18/22 Intake Note: Estefany is a 76 year old [place]an speaking female who presents today with her daughter/[facility] for a follow up of right knee OA, last injection on 10/18/22. Patient reports last injection provided her with some relief. Her pain returned about 3 months ago. Denies injury. Her pain is located at the anterior aspect and presents with activity. Daughter states patient does not move around a lot and once she does her pain presents. She would like to discuss her options. Finds some relief with taking oxycodone and trazodone at night. PCP offered PT however she declined. Education Program Coordinator Required: Yes Education Program Coordinator Services: Education Program Coordinator Offered & Declined Slurry Blender: Slurry Blender Present Accompanied by: Daughter Allergies cat dander [CAT DANDER] Allergy (Intermediate, Verified 10/06/24 11:44) skin rash mite-Dermatophagoides farinae, skyla [DUST MITES] Allergy (Intermediate, Verified 10/06/24 11:44) watery itchy eyes, sneezing HPI HPI OV-RT knee OA, last injection on 10/18/22: Details: 78-year-old female returns to the office today for right knee pain. She was last seen by me in October of 2022 where she had an injection which was quite successful. She does have a left total knee arthroplasty which was done pro ximally 15-20 years ago. She does suffer from early dementia. She is accompanied by her [facility]. [facility] Medical History Dementia Multinodular goiter HX: breast cancer Thyroid disease Depression Obesity (BMI 30-39.9) Vitamin D deficiency Migraine GERD without esophagitis Anemia Asthma Pure hypercholesterolemia Environmental allergies Venous (peripheral) insufficiency Complex renal cyst Morbid obesity with BMI of 40.0-44.9, adult Gall stones Mild major depression Dyslipidemia Tremor of left hand Invasive ductal carcinoma of left breast Non-toxic multinodular goiter Lumbar degenerative disc disease Renal calculi Insomnia Constipation due to opioid therapy Essential hypertension Surgical History History of left cataract surgery Hx of varicose vein stripping Hx of cystoscopy Hx of biopsy H/O colonoscopy Hx of dilation and curettage History of esophagogastroduodenoscopy (EGD) Hx of hand surgery History of lumpectomy of left breast History of lithotripsy History of left knee replacement History of section Family History Father Medical history unknown Mother Lung cancer Colon cancer Social History Household Members: None Household Members Other:: daughter Housing: Apartment Are you a primary rn palliative care to a significant other at home: No Do you presently have visiting nurse or other home services: Yes ([facility]) Alcohol intake: never Patient Tobacco Use Status: Never used Tobacco e-Cigarette/Vaping Use: Never Used Second Hand Smoke Exposure: No service: No 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al status: unemployed and disabled 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 Tenderness along the medial joint line. ROM full with crepitus. Negative steinmans. No ligamentous laxity. NVI. Office Procedures AMB Joint Injection/Aspiration Joint Injection/Aspiration Primary Site: right knee Prep: site was prepped using aseptic technique, ethochloride spray was applied and injection warnings given Injected: 80 mg of, DepoMedrol, with 8 mL of, 1% plain lidocaine and in the joint Approach Used: anterolateral Procedure: The patient tolerated the procedure well and there was some relief with the local anesthesia Coding 07605 - Glenohumeral/Tronchanteric Bursa/Intraarticular Procedure code (CPT) selection complete Results Reviewed Results Reviewed: X-rays of the right knee obtained in the office today and reviewed by me show end-stage arthritis of the right knee. Left knee prosthesis appears intact. Assessment & Plan Assessment & Plan (1) Primary osteoarthritis of right knee: Code(s): M17.11 - Unilateral primary osteoarthritis, right knee Category: Medical Plan: We discussed options today which include a steroid injection which she did cons ent to move forward with. Patient tolerated procedure well. We also briefly discuss total knee arthroplasty of the right knee. Given her dementia there is concerns about her compliance and willingness to proceed with a total knee arthroplasty. While her [facility] says that she is limited and can not do much for herself there are some factors that may complicate surgery such as her mental health and the fact she lives alone. We will see how beneficial this injection is for her to if symptoms worsen or her limitations become more severe she will contact our office otherwise follow up as needed. Orders: Orders XR knee RT 3V Today M17.11 - Unilateral primary osteoarthritis, right knee XR knee LT 1V Today M25.562 - Pain in left knee Coding Level of Care Code Est Pt Level 3 (23420) Complex EM visit Add On G2211 Diagnoses Primary osteoarthritis of right knee M17.11 CPT Codes Coding - Joint 7: 41201 - Glenohumeral/Tronchanteric Bursa/Intraarticular ([id number])
[2024-10-06 11:54] VITALS: BMI 39.5
--- OUTSIDE RECORDS SUMMARY | 2024-10-06 13:54 | XMS_ITS | Clinical Summary ---
Author Organization [employer] Address [address] [place] [address] [address] [place] [address] Care Team Providers Care Supervisor Core Shop Name Role Phone Unavailable Primary Care Provider [...] [facility] ADULT D[facility] [address] [place] [address] Donovan Gonzalez DMD from Last 3 Months [...] Upcoming Encounters Date Type Department Care Team ([facility] st Contact Info) Description 11/24/2024 9:00 AM EDT Office Visit [facility] ADULT D[facility]AL [address] [place] [address] Peter Jack, DMD [address] [place] [address] Health Maintenance Due Date Last Done Comments [...] Relevant to Health Maintenance Insurance DENTAL - [facility]
--- OUTSIDE RECORDS SUMMARY | 2024-10-06 13:54 | XMS_ITS | Encounter Summary ---
Author Organization [employer] [facility] Address [address] [place] [id number] Care Team Providers Care Laborer Wood Preserving Plant Name Role Phone Unavailable Primary Care Provider Unavailabl e Reason for Visit * Reason Comments Dental Pain Dentures Lower dentures disco mfort Encounter Details Date Type Department Care Team ([facility] Contact Info) Description 09/30/2024 10:30 AM EST Office Visit [facility] ADULT D[facility]AL [address] [place] [address] Donovan Gonzalez DMD [address] [place] [address] Social History Tobacco Use Types Packs/Day Years [...] /F E.O.E: wnl Radiographic: none Dx: óscar pillo Tx: consult with O.S. regarding LR and LL óscar pillo removal Pt would also like to have these pillo remove Douglas documented in this encounter Plan of Treatment Upcoming Encounters Date Type Department Care Team (Late st Contact Info) Description 11/24/2024 9:00 AM EDT Office Visit [facility] ADULT DENTAL [address] [place] [address] Peter Jack DMD [address] [place] [address] Scheduled Orders Name Type Priority Associated Diagnoses [...]
--- OUTSIDE RECORDS SUMMARY | 2024-10-06 13:54 | XMS_ITS ---
Author Name MS. Savage Bhagat APRN Address [address] [place] [address] Phone [phone] [facility] Care Team Providers Care Diesel Engine Erector Name Role Phone Era Bhagat Unavailable [phone] MELL SMITH Unavailable [phone] Reason for Referral Not Available Allergies, adverse [...] FOR 7 DAYS 2022-03-29 No Data Available [facility]jtor[facility]ob-Nrgjplex[facility]-MH [id number] Suspension SHAKE LIQUID AND INSTILL 4 DROPPERFUL [...] Active 2023-11-28 N/A Other problems related to [facility] facilities and other health care [...] of Service Diagnosis/Co mplaint No Data Available [facility] [place]2022 Gastritis, unspecified, with out bleeding Pain Assessment - Pain Documented on a Pain Scale (1125F) [facility] [place]20[place] Pain Assessment - Pain Documented on a Pain Scale (1125F) [facility] [place]20[place] Pain Assessment - Pain Documented on a Pain Scale (1125F) [facility] [place]23[place]20[place] Pain Assessment - Pain Documented on a Pain Scale (1125F) [facility] [place] 05[place]23[place]2022 Pain Assessment - Pain Documented on a Pain Scale (1125F) [facility] [place] 05[place]23[place]2022 Pain Assessment - Pain Documented on a Pain Scale (1125F) [facility] [place] 05[place]23[place]2022 Pain Assessment - Pain Documented on a Pain Scale (1125F) [facility] [place] 05[place]23[place]2022 Pain Assessment - Pain Documented on a Pain Scale (1125F) [facility] [place] 05[place]23/2022 Pain Assessment - Pain Documented on a Pain Scale (1125F) [facility] [place] 05[place]23[place]2022 Chronic obstructive pulmonar y [...] (do not use for phone, instead use 66740-79) [facility]20[place] Chronic obstructive pulmonar y disease, [...] (do not use for phone, instead use 64983-72) [facility] [place] 09/23/20[place] Estab. patient 30-39min; chronic exacerbation, 2 stable chronic or 1 acute illness add add modifier 95 for video, (do not use for phone, instead use 02018-47) [facility]20[place] Estab. patient 30-39min; chronic exacerbation, 2 stable chronic or 1 acute illness add add modifier 95 for video, (do not use for phone, instead use 34891-47) [facility]23/20[place] Estab. patient 30-39min; chronic exacerbation, 2 stable chronic or 1 acute illness add add modifier 95 for video, (do not use for phone, instead use 70694-19) [facility]23/20[place] Estab. patient 30-39min; chronic exacerbation, 2 stable chronic or 1 acute illness add add modifier 95 for video, (do not use for phone, instead use 32808-98) [facility]23/20[place] Estab. patient 30-39min; chronic exacerbation, 2 stable chronic or 1 acute illness add add modifier 95 for video, (do not use for phone, instead use 38727-89) [facility]23/20[place] Estab. patient 30-39min; chronic exacerbation, 2 stable chronic or 1 acute illness add add modifier 95 for video, (do not use for phone, instead use 41961-39) [facility] 09[place]23/20[place] Estab. patient 30-39min; chronic exacerbation, 2 stable chronic or 1 acute illness add add modifier 95 for video, (do not use for phone, instead use 12606-91) [facility]23/20[place] Estab. patient 30-39min; chronic exacerbation, 2 stable chronic or 1 acute illness add add modifier 95 for video, (do not use for phone, instead use 05757-67) [facility]28/2023 Morbid (severe) obesity due to excess [...] (do not use for phone, instead use 01914-02) [facility]28/20[place] Estab. patient 30-39min; chronic exacerbation, 2 stable chronic or 1 acute illness add add modifier 95 for video, (do not use for phone, instead use 32635-48) [facility]/28/2023 Estab. patient 30-39min; chronic exacerbation, 2 stable chronic or 1 acute illness add add modifier 95 for video, (do not use for phone, instead use 28126-96) [facility]28/2023 Estab. patient 30-39min; chronic exacerbation, 2 stable chronic or 1 acute illness add add modifier 95 for video, (do not use for phone, instead use 86682-17) [facility] 11/28/2023 Estab. patient 30-39min; chronic exacerbation, 2 stable chronic or 1 acute illness add add modifier 95 for video, (do not use for phone, instead use 12312-51) [facility]/20[place] Estab. patient 30-39min; chronic exacerbation, 2 stable chronic or 1 acute illness add add modifier 95 for video, (do not use for phone, instead use 77738-67) [facility]28/2023 Estab. patient 30-39min; chronic exacerbation, 2 stable chronic or 1 acute illness add add modifier 95 for video, (do not use for phone, instead use 27387-07) [facility] 11/28/2023 Estab. patient 30-39min; chronic exacerbation, 2 stable chronic or 1 acute illness add add modifier 95 for video, (do not use for phone, instead use 98101-71) [facility]/28/2023 Estab. patient 20-29min; 1 stable chronic or 2 minor; add add modifier 95 for video, modifier 93 for phone [facility]/31/2024 Morbid (severe) obesity due to excess caloriesSevere persistent asthma, uncomplicatedChronic obstructive pulmonary disease, unspecifiedMajor depressive disorder, recurrent, moderateUnspecified dementia without behavioral disturbanceHyperlipidemia, unspecifiedNeuralgia and neuritis, unspecifiedEssential (primary) hypertensionOther problems related to medical facilities and other health carePersonal history of malignant neoplasm of breast Estab. patient 20-29min; 1 stable chronic or 2 minor; add add modifier 95 for video, modifier 93 for phone [facility]/31/20[place] Estab. patient 20-29min; 1 stable chronic or 2 minor; add add modifier 95 for video, modifier 93 for phone [facility] 08/31/2024 Estab. patient 20-29min; 1 stable chronic or 2 minor; add add modifier 95 for video, modifier 93 for phone [facility] 08/31/2024 Estab. patient 20-29min; 1 stable chronic or 2 minor; add add modifier 95 for video, modifier 93 for phone [facility] 08/31/2024 Estab. patient 20-29min; 1 stable chronic or 2 minor; add add modifier 95 for video, modifier 93 for phone [facility] 08/31/2024 Estab. patient 20-29min; 1 stable chronic or 2 minor; add add modifier 95 for video, modifier 93 for [facility] [place] 08/31/2024 Estab. patient 20-29min; 1 stable chronic or 2 minor; add add modifier 95 for video, modifier 93 for phone [facility] 08/31/2024 Vital Signs Date of Collection Vitals [...] date Servicing provider Phone# No Data Available [id number] 2022-05-20 No Data Available No Data Available [...] (do not use for phone, instead use 42266-05) 14175 2022-05-23 No Data Available No Data Availa ble Estab. patient 30-39min; chronic exacerbation, 2 stable chronic or 1 acute illness add add modifier 95 for video, (do not use for phone, instead use 46776-47) [id number] 2022-09-23 No Data Available No Data Availa [...] (do not use for phone, instead use 32218-89) [id number] 2023-11-28 No Data Available No Data Availa [...] 95 for video, modifier 93 for phone [id number] 2024-08-31 No Data Available No Data Availa [...] joint pain increased Please remember to call [facility] to see PCP. Follow-up with [facility] as [...] Concerns Date Concern 2024-08-31 Visit completed chelsi arbams audio/video.Patient/Guardian agreed to visit via telehealth. Today, patient has chief complaint of: follow up care and comprehensive review.Reviewed Allergies, Medications, Active Medical conditions, past medical/surgical history, Social history. 2024-08-31 Most recent hospital stay(s) or ER visit(s) and precipitating factors: denies
== END 2024-10-06 12:21 | disposition home or self-care (01) ==
PROVIDERS: PCP Internal Medicine; Visit Provider Physician Assistant
DX: M17.11 Unilateral primary osteoarthritis, right knee (principal)
CPT/HCPCS: 20610; 99213

== ENCOUNTER → 2024-10-06 11:29 | Outpatient (BNV) | payer OTHER, SELFPAY | PROVIDERS: Visit Provider Radiology Diagnostic Radiology | DX: M17.11 Unilateral primary osteoarthritis, right knee (principal) | CPT/HCPCS: 73562 ==

== ENCOUNTER 2024-10-28 10:10 | Outpatient (REF) | payer OTHER, SELFPAY ==
--- OUTSIDE RECORDS SUMMARY | 2024-10-28 12:58 | XMS_ITS ---
Author Name Gail BARK SKINNER,INSTRUMENTS SALES REPRESENTATIVE,FN P,SOLDERER, Sarah Address [address] [place] [address] Phone [phone] [facility] Care Team Providers Care Waste Duster Name Role Phone Sarah Reynolds Unavailable [phone] HUSEYIN MELL GANDHI Unavailable [phone] Reason for Referral Not Available Allergies, adverse [...] 100 mg Tab take 2 tablet by out daily 2021-10-09 No Data Available [facility] [...] FOR 7 DAYS 2022-03-29 No Data Available [id number]-[id number] Suspension SHAKE LIQUID AND INSTILL 4 DROPPERFUL [...] Active 2023-11-28 N/A Other problems related to [facility] and other health care Active [...] of Service Diagnosis/Co mplaint No Data Available [facility] [place] Gastritis, unspecified, with out bleeding Pain Assessment - Pain Documented on a Pain Scale (1125F) [facility] [place] Pain Assessment - Pain Documented on a Pain Scale (1125F) [facility] [place] Pain Assessment - Pain Documented on a Pain Scale (1125F) [facility] [place] Pain Assessment - Pain Documented on a Pain Scale (1125F) [facility] [place] Pain Assessment - Pain Documented on a Pain Scale (1125F) [facility] [place] Pain Assessment - Pain Documented on a Pain Scale (1125F) [facility] [place] Pain Assessment - Pain Documented on a Pain Scale (1125F) [facility] [place] Pain Assessment - Pain Documented on a Pain Scale (1125F) [facility] [place] Pain Assessment - Pain Documented on a Pain Scale (1125F) [facility] [place] Chronic obstructive pulmonar y [...] (do not use for phone, instead use 09415-55) [facility] [place] Chronic obstructive pulmonar y disease, [...] (do not use for phone, instead use 02200-45) [facility] ([place] Estab. patient 30-39min; chronic exacerbation, 2 stable chronic or 1 acute illness add add modifier 95 for video, (do not use for phone, instead use 71858-70) [facility] Estab. patient 30-39min; chronic exacerbation, 2 stable chronic or 1 acute illness add add modifier 95 for video, (do not use for phone, instead use 72184-63) [facility] Estab. patient 30-39min; chronic exacerbation, 2 stable chronic or 1 acute illness add add modifier 95 for video, (do not use for phone, instead use 10038-36) [facility] Estab. patient 30-39min; chronic exacerbation, 2 stable chronic or 1 acute illness add add modifier 95 for video, (do not use for phone, instead use 62254-04) [facility] Estab. patient 30-39min; chronic exacerbation, 2 stable chronic or 1 acute illness add add modifier 95 for video, (do not use for phone, instead use 24321-42) [facility] Estab. patient 30-39min; chronic exacerbation, 2 stable chronic or 1 acute illness add add modifier 95 for video, (do not use for phone, instead use 16631-21) [facility] Estab. patient 30-39min; chronic exacerbation, 2 stable chronic or 1 acute illness add add modifier 95 for video, (do not use for phone, instead use 01354-14) [facility] Estab. patient 30-39min; chronic exacerbation, 2 stable chronic or 1 acute illness add add modifier 95 for video, (do not use for phone, instead use 57613-56) [facility] [place]23 Morbid (severe) obesity due to excess [...] (do not use for phone, instead use 49251-68) [facility] Estab. patient 30-39min; chronic exacerbation, 2 stable chronic or 1 acute illness add add modifier 95 for video, (do not use for phone, instead use 88107-12) [facility] Estab. patient 30-39min; chronic exacerbation, 2 stable chronic or 1 acute illness add add modifier 95 for video, (do not use for phone, instead use 27166-92) [facility] Estab. patient 30-39min; chronic exacerbation, 2 stable chronic or 1 acute illness add add modifier 95 for video, (do not use for phone, instead use 26980-52) [facility] Estab. patient 30-39min; chronic exacerbation, 2 stable chronic or 1 acute illness add add modifier 95 for video, (do not use for phone, instead use 50938-86) [facility] Estab. patient 30-39min; chronic exacerbation, 2 stable chronic or 1 acute illness add add modifier 95 for video, (do not use for phone, instead use 26478-30) [facility] Estab. patient 30-39min; chronic exacerbation, 2 stable chronic or 1 acute illness add add modifier 95 for video, (do not use for phone, instead use 44208-76) [facility] Estab. patient 30-39min; chronic exacerbation, 2 stable chronic or 1 acute illness add add modifier 95 for video, (do not use for phone, instead use 70875-82) [facility] Estab. patient 20-29min; 1 stable chronic or 2 minor; add add modifier 95 for video, modifier 93 for phone [facility] [place]2024 Morbid (severe) obesity due to excess caloriesSevere persistent asthma, uncomplicatedChronic obstructive pulmonary disease, unspecifiedMajor depressive disorder, recurrent, moderateUnspecified dementia without behavioral disturbanceHyperlipidemia, unspecifiedNeuralgia and neuritis, unspecifiedEssential (primary) hypertensionOther problems related to medical facilities and other health carePersonal history of malignant neoplasm of breast Estab. patient 20-29min; 1 stable chronic or 2 minor; add add modifier 95 for video, modifier 93 for phone [facility] Estab. patient 20-29min; 1 stable chronic or 2 minor; add add modifier 95 for video, modifier 93 for phone [facility] Estab. patient 20-29min; 1 stable chronic or 2 minor; add add modifier 95 for video, modifier [address] [facility] Estab. patient 20-29min; 1 stable chronic or 2 minor; add add modifier 95 for video, modifier 93 for phone [facility] Estab. patient 20-29min; 1 stable chronic or 2 minor; add add modifier 95 for video, modifier 93 for phone [facility] 08[place]/20[place] Estab. patient 20-29min; 1 stable chronic or 2 minor; add add modifier 95 for video, modifier [address] [facility] Estab. patient 20-29min; 1 stable chronic or 2 minor; add add modifier 95 for video, modifier 93 for phone [facility] 08/[place]/2024 Vital Signs Date of Collection Vitals [...] tive Time Current Smoking Status Never smoker 2024-10-03 7 Sex Female History of Procedures Procedures Service Procedure code Service date Servicing provider Phone# No Data Available [id number] 2022-05-20 No Data Available No Data Available [...] (do not use for phone, instead use 74127-55) [id number] 2022-05-23 No Data Available No Data Availa ble Estab. patient 30-39min; chronic exacerbation, 2 stable chronic or 1 acute illness add add modifier 95 for video, (do not use for phone, instead use 64874-97) [id number] 2022-09-23 No Data Available No Data Availa [...] (do not use for phone, instead use 03233-77) [id number] 2023-11-28 No Data Available No Data Availa [...] 95 for video, modifier 93 for phone [id number] 2024-08-31 No Data Available No Data Availa ble Medication List Documented (1159F) 1159F 2024-08-31 No Data Available No Data Sherene ilable Medication Review by prescribing provider or [...] modifier 95Continue to see PCP. Follow-up with [facility] as [...] joint pain increased Please remember to call [facility] to see PCP. Follow-up with [facility] as [...] documented (1160F)Continue to see PCP. [facility] [...]
== END 2024-10-28 10:11 | disposition home or self-care (01) ==
LOC: HO.MAMMO 10:10
PROVIDERS: PCP Internal Medicine; Visit Provider Internal Medicine
DX: Z12.31 Encounter for screening mammogram for malignant neoplasm of breast (principal)
CPT/HCPCS: 77063; 77067

== ENCOUNTER → 2024-10-28 10:15 | Outpatient (BNV) | payer OTHER, SELFPAY | PROVIDERS: PCP Internal Medicine; Visit Provider Internal Medicine | DX: Z12.31 Encounter for screening mammogram for malignant neoplasm of breast (principal) | CPT/HCPCS: 77063; 77067 ==

== ENCOUNTER 2024-11-17 10:29 | Outpatient (AMB) | payer OTHER, SELFPAY ==
--- NOTE | 2024-11-17 10:42 | A.OFFPC_ITS ---
Vital Signs 11/17/24 10:44 Height 5 ft 2 in Weight 218 lb BMI 39.9 BP 118/86 Blood Pressure Location Lt brachial Position Sitting Intake Visit Reasons: bp Intake Note: Patient here for a follow up BP Health Services Manager Required: No Accompanied by: Daughter Allergies cat dander [CAT DANDER] Allergy (Intermediate, Verified 11/17/24 11:13) skin rash mite-Dermatophagoides farinae, skyla [DUST MITES] Allergy (Intermediate, Verified 11/17/24 11:13) watery itchy eyes, sneezing Medication List - Last Reconciled 11/17/24 by Kathy Bailon MD acetaminophen (Tylenol) 325 mg PO BID PRN albuterol sulfate 90 mcg/actuation 1 - 2 puffs PO Q4-6H PRN 30 days amlodipine 5 mg PO DAILY aspirin 81 mg PO DAILY 90 days atorvastatin 80 mg PO BEDTIME 90 days cetirizine 10 mg PO DAILY cholecalciferol (vitamin D3) 25 mcg PO DAILY epinephrine 0.3 mL IM DAILY PRN ferrous sulfate (Iron (ferrous sulfate)) 325 mg PO DAILY 30 days furosemide 40 mg PO DAILY 90 days losartan 100 mg PO DAILY 90 days magnesium citrate 296 mL PO ONCE memantine 10 mg PO BID mometasone 0.1% 1 appl topical DAILY PRN jpswothiayix-xfoaxsri-cbzxsn 1 tab PO DAILY nystatin 1 appl topical DAILY PRN 30 days olopatadine 0.1% 1 drp ophthalmic (eye) DAILY omega-3 fatty acids 1,000 mg PO DAILY omeprazole 20 mg PO DAILY 90 days oxycodone 5 mg PO BID 30 days polyethylene glycol 3350 17 grams PO DAILY 30 days sennosides (senna) 8.6 mg PO BEDTIME PRN 30 days sertraline 200 mg PO DAILY sumatriptan succinate 25 mg PO Q2-4H PRN 30 days trazodone 150 mg PO BEDTIME walker with wheels Tobacco use date assessed: 11/17/24 Fall risk assessment: No Falls in past year Last assessed Fall Risk: 11/17/24 Dental Screening Dental Screen Date: 11/17/24 Did you have a dental visit in the last 12 months?: No Did you have a dental problem in the last 6 months where you did not have access to dental care?: No Was dental information given to patient?: Patient has dentist HPI HPI Comments History of Present Illness Details The patient is an 78-year-old female presenting with chronic conditions and preventive care management. She has a history of chronic pain syndrome affecting her back, stabilized but intensified by inactivity. The pain ma nagement primarily involves oxycodone, with an acknowledgment of the need for more physical activity. She has maintained control over her essential hypertension with amlodipine and losartan. Her dyslipidemia management includes atorvastatin as preventive therapy for coronary artery disease. Allergic rhinitis is managed with cetirizine, and an Epipen is available for emergencies. Diagnosis of osteopenia was established with bone densitometry, and her management includes calcium and vitamin D supplementation. She reports maintenance of GERD symptoms with omeprazole. Her visual history is remarkable for cataracts, previously addressed with surgery. Migraine management includes sumatriptan, and trazodone addresses sleep difficulties. Depression is treated with sertraline under psychiatric consultation. Notable past surgical history includes procedures for various conditions, including cystoscopy, thyroid biopsy, colonoscopy, and others. [facility] Medical History (Updated 11/17/24 @ 12:17 by Kathy Bailon MD) Chronic ulcer of leg, limited to breakdown of skin Dementia Multinodular goiter HX: breast cancer Thyroid disease Depression Obesity (BMI 30-39.9) Vitamin D deficiency Migraine GERD without esophagitis Anemia Asthma Pure hypercholesterolemia Environmental allergies Venous (peripheral) insufficiency Complex renal cyst Morbid obesity with BMI of 40.0-44.9, adult Gall stones Mild major depression Dyslipidemia Tremor of left hand Invasive ductal carcinoma of left breast Non-toxic multinodular goiter Lumbar degenerative disc disease Renal calculi Insomnia Constipation due to opioid therapy Essential hypertension Surgical History History of left cataract surgery Hx of varicose vein stripping Hx of cystoscopy Hx of biopsy H/O colonoscopy Hx of dilation and curettage History of esophagogastroduodenoscopy (EGD) Hx of hand surgery History of lumpectomy of left breast History of lithotripsy History of left knee replacement History of section Family History Father Medical history unknown Mother Lung cancer Colon cancer Social History Household Members: None Household Members Other:: daughter Housing: Apartment Are you a primary behavioral health care manager to a significant other at home: No Do you presently have visiting nurse or other home services: Yes ([employer]) Alcohol intake: never Patient Tobacco Use Status: Never used Tobacco e-Cigarette/Vaping Use: Never Used Second Hand Smoke Exposure: No service: No 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al status: unemployed and disabled 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 1. Little interest or pleasure in doing things: not at all 2. Feeling down, depressed, or hopeless: not at all 3. Trouble falling or staying asleep, or sleeping too much: not at all 4. Feeling tired or having little energy: several days 5. Poor appetite or overeating: not at all 6. Feeling bad about yourself - or that you are a failure or have let yourself or your family down: not at all 7. Trouble concentrating on things, such as reading the newspaper or watching television: not at all 8. Moving or speaking so slowly that other people could have noticed. Or the opposite - being so fidgety or restless that you have been moving around a lot more than usual: not at all 9. Thoughts that you would be better off or of hurting yourself in some way: not at all Total score: 1 Depression Screening Interpretation: Positive Depression Screening Follow-up: Existing condition, In treatment and Follow-up Visit Requested Depression Screening Done: Yes 06477 - PHQ-9 Billing: Yes Source: Developed by Drs. Vishal Gonsales, Dione Horn, Eduar Steel and colleagues, with an educational josé miguel from [employer]. Thrive Questionnaire Date Thrive assessed: 11/17/24 I am a: Patient What is your living situation today?: I have a steady place to live Within the past 12 months, did the food you bought not last and you didn't have the money to get more?: Never true Within the past 12 months, did you worry whether your food would run out before you got money to buy more?: Never true Do you have trouble paying for medicines?: No Do you have trouble getting transportation to medical appointments?: No Do you have trouble paying your heating and electricity bill?: No Do you have trouble taking care of your child, family member or friend?: No Do you have trouble with day-to-day activities such as bathing, preparing meals, shopping, managing finances, etc.?: Yes Are you interested in more education?: No Please select the resources that you would like help with: None Currently or been in a relationship where the following occur: No concerns reported THRIVE Score: 0 AUDIT C Alcohol Use Questionnaire (AUDIT-C) 1. How often do you have a drink containing alcohol?: Never Total Score: 0 Score Reviewed/Action Taken: No SHAMIR-7 AMB Questionnaire SHAMIR-7 Date SHAMIR - 7 assessed: 11/17/24 Feeling nervous, anxious, or on edge: 1 = Several days Not being able to stop or control worryin = Not at all Worrying too much about different things: 0 = Not at all Trouble relaxin = Not at all Being so restless that it is hard to sit still: 0 = Not at all Becoming easily annoyed or irritable: 0 = Not at all Feeling afraid as if something awful might happen: 0 = Not at all Total SHAMIR-7 score (0-4 normal; 5-9 mild; 10-14 moderate; 15-21 severe): 1 Source: Developed by Drs. Vishal Gonsales, Dione Horn, Eduar Steel and colleagues, with an educational josé miguel from [employer]. SHAMIR-7 Assessment Billing SHAMIR-7 Assessment Tool: SHAMIR-7 Assessment 62024 Review of Systems Const All systems reviewed & are unremarkable except as noted in HPI and below Card Denies chest pain at rest, Denies chest pain with activity, Denies edema, Denies irregular heart rhythm, Denies claudication, Denies dyspnea, Denies dyspnea on exertion, Denies orthopnea, Denies paroxysmal nocturnal dyspnea and Denies slow heart rate Resp Denies cough, Denies dyspnea and Denies dyspnea on exertion GI Denies abdominal pain, Denies change in bowel habits, Denies excessive flatus, Denies nausea and Denies vomiting Physical exam (Primary Care) Vital Signs: Last Vital Signs BP 118/86 11/17/24 10:44 BMI result Body Mass Index 39.9 BMI Assessment/Plan discussion: High BMI High, discussed plan: lifestyle, weight reduction, dietary and physical activity Tobacco/Smoking Status: Tobacco use Status Tobacco use date assessed 11/17/24 11/17/24 10:53 Patient Tobacco Use Status Never used Tobacco 11/17/24 10:48 e-Cigarette/Vaping Use Never Used 11/17/24 10:48 PHQ-9: PHQ-9 Score PHQ-9: Total score 1 11/17/24 10:53 Depression Screening Interpretation: Positive Depression Screening Follow-up: Existing condition, In treatment and Follow-up Visit Requested Thrive Assessment: Date of Thrive Assessment Date Thrive assessed 11/17/24 11/17/24 10:48 Currently or been in a relationship where the following occur: No concerns reported Const Nutritional Appearance: obese Limitations: ambulation with walker Resp Effort & Inspection: normal respiratory effort Auscultation: clear to auscultation bilaterally Cardio Jugular venous distension: no JVD Rate: regular rate Rhythm: regular rhythm Heart sounds: S1 normal heart sound present and S2 normal heart sound present Extrem General: Yes full ROM Psych Appearance: grossly normal Coding Level of Care Code Est Pt Level 4 (35225) Complex EM visit Add On G2211 Diagnoses Mild major depression F32.0 Essential hypertension I10 Lumbar degenerative disc disease M51.36 Constipation due to opioid therapy K59.03; T40.2X5A Pure hypercholesterolemia E78.00 Iron deficiency anemia secondary to inadequate dietary iron intake D50.8 Anemia type: iron deficiency Iron deficiency anemia type: inadequate dietary iron intake Dementia F03.90 Additional Codes PHQ-9 - 88214 - PHQ-9 Billing: Yes ([id number]) SHAMIR-7 Assessment Billing - SHAMIR-7 Assessment Tool: SHAMIR-7 Assessment 73881 ([id number]) Time Spent (min) 23 Assessment & Plan Assessment & Plan (1) Mild major depression: Code(s): F32.0 - Major depressive disorder, single episode, mild Category: Medical (2) Essential hypertension: Code(s): I10 - Essential (primary) hypertension Category: Medical (3) Lumbar degenerative disc disease: Code(s): M51.36 - Other intervertebral disc degeneration, lumbar region Category: Medical (4) Constipation due to opioid therapy: Comment: Stool softeners, high-fiber diet and fiber supplement, avoid constipation, Code(s): K59.03 - Drug induced constipation; T40.2X5A - Adverse effect of other opioids, initial encounter Category: Medical (5) Pure hypercholesterolemia: Code(s): E78.00 - Pure hypercholesterolemia, unspecified Category: Medical (6) Anemia: Code(s): D64.9 - Anemia, unspecified Category: Medical Qualifiers: Anemia type: iron deficiency Iron deficiency anemia type: inadequate dietary iron intake Qualified Code(s): D50.8 - Other iron deficiency anemias (7) Dementia: Comment: Alzheimers vs Mixed Code(s): F03.90 - Unspecified dementia, unspecified severity, without behavioral disturbance, psychotic disturbance, mood disturbance, and anxiety Category: Medical Plan The focus remains on maintaining control over her existing chronic conditions including hypertension, dyslipidemia, and chronic pain. Essential hypertension is managed effectively with a combination of amlodipine and losartan, while atorvastatin addresses dyslipidemia. Her pain, exacerbated by inactivity, sees management through pharmacologic options in conjunction with efforts to increase activity levels safely. Preventive care involves routine mammograms, scheduled bone densitometry every five years, and the current osteopenia regimen involves calcium and vitamin D supplements. Allergic rhinitis remains controlled with cetirizine. Migraine and insomnia management using sumatriptan and trazodone continues without further incidents. Her psychiatric care includes ongoing therapy and medication adjustments with sertraline. Upcoming evaluations will occur with both her surgeon and neurologist. There is also emphasis placed on nutritional modifications and encouraging weight management to bolster her overall health and facilitate increased mobility. Patient was informed and verbally consented to the use of an ambient scribe for clinic note documentation during this visit. During the visit, I reviewed the importance of controlling her blood pressure to minimize cardiovascular risks. We agreed on the necessity of atorvastatin for lipid management, considering her preventive needs for coronary disease. We discussed the implications of osteopenia, with specific attention to dietary calcium and vitamin D intake to mitigate fracture risk. The management of her migraines and her chronic pain syndrome was addressed, reinforcing the importance of medication compliance. Depression treatment remains critical, with sertraline prescribed under psychiatric supervision. We also addressed lifestyle modifications, emphasizing the need for increased physical activity and weight management to improve her general health status. Future [facility] her neurologist and [facility] I advised routine blood work to be done in four months, highlighted the scheduling of her next bone density screening in 2026, and advised prompt follow-up should any new symptoms arise. Orders: Orders Complete Blood Count Auto Diff Today D64.9 - Anemia, unspecified IRON PROFILE Today D64.9 - Anemia, unspecified Comprehensive [place]. Panel Fast Today M17.11 - Unilateral primary osteoarthritis, right knee Thyroid Stimulating Hormone Today E04.2 - Nontoxic multinodular goiter Lipid Panel Today E78.5 - Hyperlipidemia, unspecified Vitamin D 25-OH Total Today E55.9 - Vitamin D deficiency, unspecified Vitamin B12 and Folate Today E53.8 - Deficiency of other specified B group vitamins Magnesium Today E83.42 - Hypomagnesemia Patient Instructions: - Continue current medications as prescribed for hypertension, cholesterol, and depression. - Increase physical activity as tolerated; use walker for support. - Maintain dietary modifications to support weight management and bone health. - Schedule and attend follow-up appointments with neurologist and surgeon. - Complete blood work scheduled in four months. - Take calcium and vitamin D supplements daily as directed. - Report any new or worsening symptoms immediately. - Follow up with psychiatric care as planned.
[2024-11-17 10:44] VITALS: BP 118/86; BMI 39.9
--- OUTSIDE RECORDS SUMMARY | 2024-11-17 12:20 | XMS_ITS ---
Author Name Gail MANAGER OF HOSPITAL,SUPPLY CHAIN MANAGER,FN P,WOOD LATHE OPERATOR, Sarah Address [address] [place] [address] Phone [phone] [facility] Care Team Providers Care Leather Sponger Name Role Phone Sarah Reynolds Unavailable [phone] HUSEYIN MELL GANDHI Unavailable [phone] Reason for Referral Not Available Allergies, adverse [...] 100 mg Tab take 2 tablet by [facility] daily 2021-10-09 No Data Available Spiriva HandiHaler [...] FOR 7 DAYS 2022-03-29 No Data Available Nlikndak-Qvusjlraa-UY 3.5-40515-5 Suspension SHAKE LIQUID AND INSTILL 4 DROPPERFUL [...] Active 2023-11-28 N/A Other problems related to [facility] facilities and other health care Active [...] of Service Diagnosis/Co mplaint No Data Available [facility] Gastritis, unspecified, with out bleeding Pain Assessment - Pain Documented on a Pain Scale (1125F) [facility] [place] Pain Assessment - Pain Documented on a Pain Scale (1125F) [facility] [place] Pain Assessment - Pain Documented on a Pain Scale (1125F) [facility] [place] Pain Assessment - Pain Documented on a Pain Scale (1125F) [facility] [place] Pain Assessment - Pain Documented on a Pain Scale (1125F) [facility] [place] Pain Assessment - Pain Documented on a Pain Scale (1125F) [facility] [place] Pain Assessment - Pain Documented on a Pain Scale (1125F) [facility] [place] Pain Assessment - Pain Documented on a Pain Scale (1125F) [facility] [place] Pain Assessment - Pain Documented on a Pain Scale (1125F) [facility] [place] Chronic obstructive pulmonar [...] (do not use for phone, instead use 47278-01) [facility] Chronic obstructive pulmonar y [...] (do not use for phone, instead use 20471-70) [facility] Estab. patient 30-39min; chronic exacerbation, 2 stable chronic or 1 acute illness add add modifier 95 for video, (do not use for phone, instead use 98929-99) [facility] Estab. patient 30-39min; chronic exacerbation, 2 stable chronic or 1 acute illness add add modifier 95 for video, (do not use for phone, instead use 02081-82) [facility] Estab. patient 30-39min; chronic exacerbation, 2 stable chronic or 1 acute illness add add modifier 95 for video, (do not use for phone, instead use 53116-52) [facility] Estab. patient 30-39min; chronic exacerbation, 2 stable chronic or 1 acute illness add add modifier 95 for video, (do not use for phone, instead use 44751-56) [facility] Estab. patient 30-39min; chronic exacerbation, 2 stable chronic or 1 acute illness add add modifier 95 for video, (do not use for phone, instead use 03921-43) [facility] Estab. patient 30-39min; chronic exacerbation, 2 stable chronic or 1 acute illness add add modifier 95 for video, (do not use for phone, instead use 91991-94) [facility] Estab. patient 30-39min; chronic exacerbation, 2 stable chronic or 1 acute illness add add modifier 95 for video, (do not use for phone, instead use 91434-60) [facility] Estab. patient 30-39min; chronic exacerbation, 2 stable chronic or 1 acute illness add add modifier 95 for video, (do not use for phone, instead use 77028-64) [facility] Morbid (severe) obesity due [...] (do not use for phone, instead use 83582-79) [facility] Estab. patient 30-39min; chronic exacerbation, 2 stable chronic or 1 acute illness add add modifier 95 for video, (do not use for phone, instead use 64946-14) [facility] Estab. patient 30-39min; chronic exacerbation, 2 stable chronic or 1 acute illness add add modifier 95 for video, (do not use for phone, instead use 89007-99) [facility] Estab. patient 30-39min; chronic exacerbation, 2 stable chronic or 1 acute illness add add modifier 95 for video, (do not use for phone, instead use 76179-72) [facility] Estab. patient 30-39min; chronic exacerbation, 2 stable chronic or 1 acute illness add add modifier 95 for video, (do not use for phone, instead use 86841-29) [facility] Estab. patient 30-39min; chronic exacerbation, 2 stable chronic or 1 acute illness add add modifier 95 for video, (do not use for phone, instead use 95672-28) [facility] Estab. patient 30-39min; chronic exacerbation, 2 stable chronic or 1 acute illness add add modifier 95 for video, (do not use for phone, instead use 69663-56) [facility] Estab. patient 30-39min; chronic exacerbation, 2 stable chronic or 1 acute illness add add modifier 95 for video, (do not use for phone, instead use 65683-46) [facility] Estab. patient 20-29min; 1 stable chronic or 2 minor; add add modifier 95 for video, modifier 93 for phone [facility]2024 Morbid (severe) obesity due [...] 95 for video, modifier 93 for phone [facility] 08/[place] Estab. patient 20-29min; 1 stable chronic or 2 minor; add add modifier 95 for video, modifier 93 for phone [facility] 08/[place] Estab. patient 20-29min; 1 stable chronic or 2 minor; add add modifier 95 for video, modifier 93 for [facility] 08[place]/20[place] Estab. patient 20-29min; 1 stable chronic or 2 minor; add add modifier 95 for video, modifier 93 for phone [facility] [place] 08/[place] Estab. patient 20-29min; 1 stable chronic or 2 minor; add add modifier 95 for video, modifier 93 for phone [facility] 08/[place] Estab. patient 20-29min; 1 stable chronic or 2 minor; add add modifier 95 for video, modifier 93 for [facility] 08/31/20[place] Estab. patient 20-29min; 1 stable chronic or 2 minor; add add modifier 95 for video, modifier 93 for phone [facility] [place] 08/[place]/2024 Vital Signs Date of [...] tive Time Current Smoking Status Never smoker 2024-11-02 6 Sex Female History of Procedures Procedures Service Procedure code Service date Servicing provider Phone# No Data Available [id number] 2022-05-20 No Data Available No Data Available [...] (do not use for phone, instead use 01324-45) [id number] 2022-05-23 No Data Available No Data Availa ble Estab. patient 30-39min; chronic exacerbation, 2 stable chronic or 1 acute illness add add modifier 95 for video, (do not use for phone, instead use 67124-77) [id number] 2022-09-23 No Data Available No Data Availa [...] (do not use for phone, instead use 04974-16) [id number] 2023-11-28 No Data Available No Data Availa [...] 95 for video, modifier 93 for phone [id number] 2024-08-31 No Data Available No Data Availa [...] pain increased Please remember to call [facility] to see PCP. Follow[facility]up with [facility] as [...] documented (1160F)Continue to see PCP. [facility] [...]
--- OUTSIDE RECORDS SUMMARY | 2024-11-17 12:20 | XMS_ITS | Clinical Summary ---
Author Organization [employer] Address [address] [place] [address] [address] [place] [address] Care Team Providers Care Snuff Container Inspector Name Role Phone Unavailable Primary Care Provider [...] Description 09/30/2024 10:30 AM EST Office Visit [facility] ADULT [facility] [address] [place] [address] Donovan Gonzalez DMD from Last 3 Months [...] Upcoming Encounters Date Type Department Care Team ([facility] Contact Info) Description 11/24/2024 9:00 AM EDT Office Visit [facility] ADULT [facility] [address] [place] [address] Peter Jack, DMD [address] [place] [address] Health Maintenance Due Date Last Done Comments Depression Screening 1945 SDOH Screening 1945 Alcohol/Substance Use Screening [...] Relevant to Health Maintenance Insurance DENTAL - [facility]
== END 2024-11-17 11:24 | disposition home or self-care (01) ==
LOC: HO.HMCH 10:30
PROVIDERS: PCP Internal Medicine; Visit Provider Internal Medicine
DX: F32.0 Major depressive disorder, single episode, mild (principal); F03.90 Unspecified dementia, unspecified severity, without behavioral disturbance, psychotic disturbance, mood disturbance, and anxiety; I10 Essential (primary) hypertension; M51.369 Other intervertebral disc degeneration, lumbar region without mention of lumbar back pain or lower extremity pain; K59.03 Drug induced constipation; T40.2X5A Adverse effect of other opioids, initial encounter; E78.00 Pure hypercholesterolemia, unspecified; D50.8 Other iron deficiency anemias

== ENCOUNTER → 2024-11-17 10:29 | Outpatient (BNVA) | payer OTHER, SELFPAY | PROVIDERS: PCP Internal Medicine; Visit Provider Internal Medicine | DX: F32.0 Major depressive disorder, single episode, mild (principal); I10 Essential (primary) hypertension; M51.369 Other intervertebral disc degeneration, lumbar region without mention of lumbar back pain or lower extremity pain; K59.03 Drug induced constipation; T40.2X5A Adverse effect of other opioids, initial encounter; E78.00 Pure hypercholesterolemia, unspecified; D50.8 Other iron deficiency anemias; F03.90 Unspecified dementia, unspecified severity, without behavioral disturbance, psychotic disturbance, mood disturbance, and anxiety; K21.9 Gastro-esophageal reflux disease without esophagitis | CPT/HCPCS: 96127; 99212 ==

== ENCOUNTER 2024-12-14 10:03 | Outpatient (AMB) | payer OTHER, SELFPAY ==
--- NOTE | 2024-12-14 10:09 | MHC.OFFVIS ---
Vital Signs 12/14/24 10:15 Height 5 ft 2 in Weight 220 lb BMI 40.2 BP 137/70 Blood Pressure Location Lt brachial Position Sitting Pulse 68 Intake Visit Reasons: 1 yr breast check Intake Note: Patient is seen in office for yearly breast exam. Pt c/o: mm:10/28/24 Electroencephalographic Technician Required: Yes Electroencephalographic Technician Language: Tree Trimmer Services: Electroencephalographic Technician Present Procurement Specialist: Procurement Specialist Present Accompanied by: Family/Other Allergies cat dander [CAT DANDER] Allergy (Intermediate, Verified 11/17/24 11:13) skin rash mite-Dermatophagoides farinae, skyla [DUST MITES] Allergy (Intermediate, Verified 11/17/24 11:13) watery itchy eyes, sneezing Medication List - Last Reconciled 12/14/24 by Duncan Eddy MD acetaminophen (Tylenol) 325 mg PO BID PRN albuterol sulfate 90 mcg/actuation 1 - 2 puffs PO Q4-6H PRN 30 days amlodipine 5 mg PO DAILY aspirin 81 mg PO DAILY 90 days atorvastatin 80 mg PO BEDTIME 90 days cetirizine 10 mg PO DAILY cholecalciferol (vitamin D3) 25 mcg PO DAILY epinephrine 0.3 mL IM DAILY PRN ferrous sulfate (Iron (ferrous sulfate)) 325 mg PO DAILY 30 days furosemide 40 mg PO DAILY 90 days losartan 100 mg PO DAILY 90 days magnesium citrate 296 mL PO ONCE memantine 10 mg PO BID mometasone 0.1% 1 appl topical DAILY PRN hintknzemnww-mcgiajaf-emdajt 1 tab PO DAILY nystatin 1 appl topical DAILY PRN 30 days olopatadine 0.1% 1 drp ophthalmic (eye) DAILY omega-3 fatty acids 1,000 mg PO DAILY omeprazole 20 mg PO DAILY 90 days oxycodone 5 mg PO BID 30 days polyethylene glycol 3350 17 grams PO DAILY 30 days sennosides (senna) 8.6 mg PO BEDTIME PRN 30 days sertraline 200 mg PO DAILY sumatriptan succinate 25 mg PO Q2-4H PRN 30 days trazodone 150 mg PO BEDTIME walker with wheels HPI Comments Details: 78-year-old female patient returning for follow-up breast examination. She was identified as having a density in the left breast on mammogram and ultrasound in the 2 o'clock position felt to be highly suggestive of malignancy and underwent ultrasound guided core biopsy on 10/08/2016. 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 She underwent a needle localized lumpectomy with sentinel node biopsy on 10/30/2016 which revealed a 1.1 cm invasive ductal carcinoma, with 0/4 sentinel lymph nodes with malignancy (pT1c pN0 (i+) (sn)). She underwent adjuvant chemotherapy including one year of Herceptin followed by radiation therapy. She was treated with letrozole 2.5 mg p.o. for 5 years. She returns today for follow-up breast examination. She mainly complains of kidney stone pain today and denies any significant breast symptoms. Her most recent mammogram dated 10/28/2024 revealed no mammographic evidence of malignancy (BI-RADS 2). She is scheduled for an annual mammogram on 11/03/2025. [facility] Medical History Chronic ulcer of leg, limited to breakdown of skin Dementia Multinodular goiter HX: breast cancer Thyroid disease Depression Obesity (BMI 30-39.9) Vitamin D deficiency Migraine GERD without esophagitis Anemia Asthma Pure hypercholesterolemia Environmental allergies Venous (peripheral) insufficiency Complex renal cyst Morbid obesity with BMI of 40.0-44.9, adult Gall stones Mild major depression Dyslipidemia Tremor of left hand Invasive ductal carcinoma of left breast Non-toxic multinodular goiter Lumbar degenerative disc disease Renal calculi Insomnia Constipation due to opioid therapy Essential hypertension Surgical History History of left cataract surgery Hx of varicose vein stripping Hx of cystoscopy Hx of biopsy H/O colonoscopy Hx of dilation and curettage History of esophagogastroduodenoscopy (EGD) Hx of hand surgery History of lumpectomy of left breast History of lithotripsy History of left knee replacement History of section Family History Father Medical history unknown Mother Lung cancer Colon cancer Social History Household Members: None Household Members Other:: daughter Housing: Apartment Are you a primary hospice care transitions coordinator to a significant other at home: No Do you presently have visiting nurse or other home services: Yes (CHECK EMBOSSER) Alcohol intake: never Patient Tobacco Use Status: Never used Tobacco e-Cigarette/Vaping Use: Never Used Second Hand Smoke Exposure: No service: No 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al status: unemployed and disabled 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 Cognitive needs: Yes (cane, walker) Hearing needs: No Vision needs: Yes Review of Systems Const All systems reviewed & are unremarkable except as noted in HPI and below Card Denies dyspnea Resp Denies chest congestion, Denies cough, Denies hemoptysis and Denies dyspnea GI Reports no additional complaints Musc Details: Arm pain left side Skin/Breast Denies breast swelling, Denies breast skin changes and Reports breast pain Edin/Lymph Denies lymphadenopathy Physical Exam Vital Signs: Last Vital Signs Pulse 68 12/14/24 10:15 BP 137/70 12/14/24 10:15 BMI result Body Mass Index 40.2 Const General: no acute distress Nutritional Appearance: well nourished Orientation/consciousness: patient oriented x3 HEENT Head: Yes normocephalic and Yes atraumatic Neck Neck: Yes normal visual inspection and Yes no lymphadenopathy Chest Other: Left breast: No skin change, well-healed incision with scar retraction in the upper outer quadrant without underlying palpable mass, no nipple retraction, no nipple discharge, no palpable mass, no enlarged lymph nodes. Tender throughout the left chest especially with palpation of the chest wall in the upper outer quadrant and axilla. Right breast: No skin change, no nipple retraction, no nipple discharge, no palpable mass, no enlarged lymph nodes Chest/axillae images: 1. Incision upper outer quadrant left breast Resp Effort & Inspection: normal respiratory effort GI Inspection: Yes normal to inspection Skin General skin exam: no rashes or lesions noted Neuro Other: Mobility Assessment: 1. 3 meter assessment time (seconds) 10 2. Gait observations: loss of balance, using walker General: patient oriented x3 Extrem Other: No evidence of lymphedema in the left arm or hand. General: Yes no clubbing, cyanosis or edema Assessment & Plan Assessment & Plan (1) Invasive ductal carcinoma of left breast: Code(s): C50.912 - Malignant neoplasm of unspecified site of left female breast Category: Medical Plan: 78-year-old female patient returning today for a 1 year follow-up breast examination following left breast lumpectomy and sentinel biopsy for invasive ductal carcinoma performed on 10/30/2016. She complains mainly of kidney stone pain today and denies any significant breast symptoms. Her most recent mammogram of 10/28/2024 revealed no mammographic evidence of malignancy (BI-RADS 2). Examination today revealed no suspicious changes in either breast and no new breast tenderness. She is scheduled for a follow-up mammogram [facility] on 11/03[facility]2025. She should return approximately 1 year for breast examination, sooner p.r.n.. Coding Level of Care Code Est Pt Level 3 (34720) Complex EM visit Add On G2211 Diagnoses Invasive ductal carcinoma of left breast C50.912
[2024-12-14 10:15] VITALS: BP 137/70; PULSE 68; BMI 40.2
--- OUTSIDE RECORDS SUMMARY | 2024-12-14 10:58 | XMS_ITS ---
Author Name Gail COMMUNICATION CENTER OPERATOR,BLENDING SUPERVISOR,FN P,LEAF SORTER, Sarah Address [address] [place] [address] Phone [phone] [facility] Care Team Providers Care Cable Tool Operator Name Role Phone Sarah Reynolds Unavailable [phone] HUSEYIN MELL GANDHI Unavailable [phone] Reason for Referral Not Available Allergies, adverse [...] 100 mg Tab take 2 tablet by [facility] daily 2021-10-09 No Data Available Spiriva [...] FOR 7 DAYS 2022-03-29 No Data Available Trkevmhf-Qamxcdbso-TM 3.5-67046-0 Suspension SHAKE LIQUID AND INSTILL 4 DROPPERFUL [...] of Service Diagnosis/Co mplaint No Data Available [facility]20[place] Gastritis, unspecified, with out bleeding Pain Assessment - Pain Documented on a Pain Scale (1125F) [facility] [place] Pain Assessment - Pain Documented on a Pain Scale (1125F) [facility] [place] Pain Assessment - Pain Documented on a Pain Scale (1125F) [facility] [place] Pain Assessment - Pain Documented on a Pain Scale (1125F) [facility] [place] Pain Assessment - Pain Documented on a Pain Scale (1125F) [facility] [place] Pain Assessment - Pain Documented on a Pain Scale (1125F) [facility] [place] Pain Assessment - Pain Documented on a Pain Scale (1125F) [facility] [place] Pain Assessment - Pain Documented on a Pain Scale (1125F) [facility] [place] Pain Assessment - Pain Documented on a Pain Scale (1125F) [facility] [place] Chronic obstructive pulmonar [...] (do not use for phone, instead use 53970-93) [facility] Chronic obstructive pulmonar y [...] (do not use for phone, instead use 04185-62) [facility] ([place]) 09/23/20[place] Estab. patient 30-39min; chronic exacerbation, 2 stable chronic or 1 acute illness add add modifier 95 for video, (do not use for phone, instead use 98012-63) [facility] 09[place] Estab. patient 30-39min; chronic exacerbation, 2 stable chronic or 1 acute illness add add modifier 95 for video, (do not use for phone, instead use 33537-57) [facility] 09[place] Estab. patient 30-39min; chronic exacerbation, 2 stable chronic or 1 acute illness add add modifier 95 for video, (do not use for phone, instead use 34864-19) [facility] 09[place] Estab. patient 30-39min; chronic exacerbation, 2 stable chronic or 1 acute illness add add modifier 95 for video, (do not use for phone, instead use 46783-87) [facility] Estab. patient 30-39min; chronic exacerbation, 2 stable chronic or 1 acute illness add add modifier 95 for video, (do not use for phone, instead use 83899-18) [facility] Estab. patient 30-39min; chronic exacerbation, 2 stable chronic or 1 acute illness add add modifier 95 for video, (do not use for phone, instead use 95034-68) [facility] Estab. patient 30-39min; chronic exacerbation, 2 stable chronic or 1 acute illness add add modifier 95 for video, (do not use for phone, instead use 70189-93) [facility] 09/23/2022 Estab. patient 30-39min; chronic exacerbation, 2 stable chronic or 1 acute illness add add modifier 95 for video, (do not use for phone, instead use 64833-59) [facility] 11[place]28/2023 Morbid (severe) obesity due to excess [...] (do not use for phone, instead use 83294-38) [facility] 11[place]28/2023 Estab. patient 30-39min; chronic exacerbation, 2 stable chronic or 1 acute illness add add modifier 95 for video, (do not use for phone, instead use 36589-55) [facility] 11/28/2023 Estab. patient 30-39min; chronic exacerbation, 2 stable chronic or 1 acute illness add add modifier 95 for video, (do not use for phone, instead use 13418-35) [facility] [place] 11/28/2023 Estab. patient 30-39min; chronic exacerbation, 2 stable chronic or 1 acute illness add add modifier 95 for video, (do not use for phone, instead use 02330-06) [facility] [place] 11/28/2023 Estab. patient 30-39min; chronic exacerbation, 2 stable chronic or 1 acute illness add add modifier 95 for video, (do not use for phone, instead use 40401-13) [facility] Estab. patient 30-39min; chronic exacerbation, 2 stable chronic or 1 acute illness add add modifier 95 for video, (do not use for phone, instead use 30314-58) [facility]20[place] Estab. patient 30-39min; chronic exacerbation, 2 stable chronic or 1 acute illness add add modifier 95 for video, (do not use for phone, instead use 89638-21) [facility] [place] 11/28/2023 Estab. patient 30-39min; chronic exacerbation, 2 stable chronic or 1 acute illness add add modifier 95 for video, (do not use for phone, instead use 10074-54) [facility] [place] 11/28/2023 Estab. patient 20-29min; 1 stable chronic or 2 minor; add add modifier 95 for video, modifier 93 for phone [facility] [place] 08/[place]/2024 Morbid (severe) obesity due to excess caloriesSevere persistent asthma, uncomplicatedChronic obstructive pulmonary disease, unspecifiedMajor depressive disorder, recurrent, moderateUnspecified dementia without behavioral disturbanceHyperlipidemia, unspecifiedNeuralgia and neuritis, unspecifiedEssential (primary) hypertensionOther problems related to medical facilities and other health carePersonal history of malignant neoplasm of breast Estab. patient 20-29min; 1 stable chronic or 2 minor; add add modifier 95 for video, modifier 93 for phone [facility] [place] 08/[place]/20[place] Estab. patient 20-29min; 1 stable chronic or 2 minor; add add modifier 95 for video, modifier 93 for phone [facility] [place] 08/31/2024 Estab. patient 20-29min; 1 stable chronic or 2 minor; add add modifier 95 for video, modifier 93 for [facility], ([place] 08/31/2024 Estab. patient 20-29min; 1 stable chronic or 2 minor; add add modifier 95 for video, modifier 93 for phone [facility] [place] 08/31/2024 Estab. patient 20-29min; 1 stable chronic or 2 minor; add add modifier 95 for video, modifier 93 for phone [facility] 08[place]/20[place] Estab. patient 20-29min; 1 stable chronic or 2 minor; add add modifier 95 for video, modifier 93 for [facility] 08/31/2024 Estab. patient 20-29min; 1 stable chronic or 2 minor; add add modifier 95 for video, modifier 93 for phone [facility] [place] 08/31/2024 Vital Signs Date of Collection Vitals [...] tive Time Current Smoking Status Never smoker 2024-12-02 3 Sex Female History of Procedures Procedures Service Procedure code Service date Servicing provider Phone# No Data Available [id number] 2022-05-20 No Data Available No Data Available [...] (do not use for phone, instead use 97434-69) 95941 2022-05-23 No Data Available No Data Availa ble Estab. patient 30-39min; chronic exacerbation, 2 stable chronic or 1 acute illness add add modifier 95 for video, (do not use for phone, instead use 28196-88) [id number] 2022-09-23 No Data Available No Data Availa [...] (do not use for phone, instead use 56224-28) [id number] 2023-11-28 No Data Available No Data Availa [...] 95 for video, modifier 93 for phone 82938 2024-08-31 No Data Available No Data Availa [...] increased Please remember to call [facility] to see PCP. Follow-up with [facility] as [...] documented (1160F)Continue to see PCP. [facility] any [facility] or disease [...] Health Concerns Date Concern 2024-08-31 Visit completed chelis abrams audio/video.Patient/Guardian agreed to visit via telehealth. Today, patient has chief complaint of: follow up care and comprehensive review.Reviewed Allergies, Medications, Active Medical conditions, past medical/surgical history, Social history. 2024-08-31 Most recent hospital stay(s) or ER visit(s) and precipitating factors: denies
--- OUTSIDE RECORDS SUMMARY | 2024-12-14 10:58 | XMS_ITS | Clinical Summary ---
Author Organization [email or web address] Address [address] [place] [address] Care Team Providers Care Truck Rental Manager Name Role Phone Unavailable Primary Care Provider [...] Acti ve amoxicillin (Amoxil) 500 MG capsule 7 Active acetaminophen (Tylenol) 500 MG tablet take 1 tablet (500MG) by oral route every 6 hours as needed 7 Active Ventolin HFA 108 (90 Base) MCG/ACT inhaler INHALE 1 TO 2 PUFFS BY MOUTH EVERY 4 TO 6 HOURS NEEDED FOR SHORTNESS OF BREATH 5 Active amLODIPine (Norvasc) 10 MG tablet Take 1 tablet by mouth Once per day. 5 Active atorvastatin (Lipitor) 80 MG tablet 5 Active Gentle Laxative 5 MG EC tablet TAKE 4 TABLETS BY MOUTH AT NOON THE DAY BEFORE YOUR COLONOSCOPY 5 Active cetirizine (ZyrTEC) 10 MG tablet Take 1 tablet by mouth Once per day. 5 Active Active Problems Problem Noted Date Diagnosed Date High blood pressure 11/24/2024 Encounters Date Type Department Care Team Description 11/24/2024 9:00 AM EDT Office Visit [facility] ADULT DENTAL [address] [place] [address] Peter Jack DMD Resistant hypertension (Primary Dx) 09/30/2024 10:30 AM EST Office Visit [facility] ADULT DENTAL [address] [place] [address] Donovan Gonzalez DMD from Last 3 Months [...] Mass Index - - Plan of Treatment Health Maintenance Due Date Last Done Comments [...] Procedure Name Priority Date/Time Associated Diagnosis Comments CONSULTATION - DIAGNOSTIC SERVICE PROVIDED BY DENTIST OR PHYSICIAN OTHER THAN REQUESTING DENTIST OR PHYSICIAN Routine 11/24/2024 9:00 AM EDT DENTURE FOLLOWUP Routine 09/30/2024 10:3 0 AM EST PROPHYLAXIS - ADULT Routine 05/17/2016 1 2:00 AM EDT PERIODIC ORAL EVALUATION - ESTABLISHED PATIENT Routine 01/19/2016 12:00 AM EDT INTRAORAL - COMPLETE SERIES OF RADIOGRAPHIC IMAGES Routine 06/18/2013 12:00 AM EST from Last 3 Months or Most Recently Relevant to Health Maintenance Insurance DENTAL - [facility]
== END 2024-12-14 10:26 | disposition home or self-care (01) ==
LOC: HO.HGS 10:04
PROVIDERS: PCP Internal Medicine; Visit Provider Surgery
DX: C50.912 Malignant neoplasm of unspecified site of left female breast (principal)
CPT/HCPCS: 99213; G2211

== ENCOUNTER → 2024-12-14 10:03 | Outpatient (BNVA) | payer OTHER, SELFPAY | PROVIDERS: PCP Internal Medicine; Visit Provider Surgery | DX: Z85.3 Personal history of malignant neoplasm of breast (principal); Z92.21 Personal history of antineoplastic chemotherapy | CPT/HCPCS: 99212 ==

== ENCOUNTER 2024-12-17 09:58 | Outpatient (AMB) | payer OTHER, SELFPAY ==
--- OUTSIDE RECORDS SUMMARY | 2024-12-17 10:17 | XMS_ITS ---
Author Name Gail REPLANTING MACHINE OPERATOR,COMMERCIAL PAINTER,FN P,SKI LIFT ATTENDANT, Sarah Address [address] [place] [address] Phone [phone] [facility] Care Team Providers Care Etcher Electrolytic Name Role Phone Sarah Reynolds Unavailable [phone] HUSEYIN MELL GANDHI Unavailable [phone] Reason for Referral Not Available Allergies, adverse [...] 100 mg Tab take 2 tablet by [facility] daily 2021-10-09 No Data Available [...] FOR 7 DAYS 2022-03-29 No Data Available [id number] Suspension SHAKE LIQUID AND INSTILL 4 DROPPERFUL [...] Active 2023-11-28 N/A Other problems related to [facility] facilities and other health care Active [...] of Service Diagnosis/Co mplaint No Data Available [facility]20[place] Gastritis, unspecified, with out bleeding Pain Assessment - Pain Documented on a Pain Scale (1125F) [facility] [place] Pain Assessment - Pain Documented on a Pain Scale (1125F) [facility] [place] Pain Assessment - Pain Documented on a Pain Scale (1125F) [facility] [place] Pain Assessment - Pain Documented on a Pain Scale (1125F) [facility] [place]20[place] Pain Assessment - Pain Documented on a Pain Scale (1125F) [facility] [place]20[place] Pain Assessment - Pain Documented on a Pain Scale (1125F) [facility] [place]20[place] Pain Assessment - Pain Documented on a Pain Scale (1125F) [facility] [place]20[place] Pain Assessment - Pain Documented on a Pain Scale (1125F) [facility] [place]2022 Pain Assessment - Pain Documented on a Pain Scale (1125F) [facility] [place]2022 Chronic obstructive pulmonar y [...] (do not use for phone, instead use 93202-38) [facility] 09[place]20[place] Chronic obstructive pulmonar y disease, [...] (do not use for phone, instead use 99424-93) [facility] 09/23/20[place] Estab. patient 30-39min; chronic exacerbation, 2 stable chronic or 1 acute illness add add modifier 95 for video, (do not use for phone, instead use 60288-54) [facility]20[place] Estab. patient 30-39min; chronic exacerbation, 2 stable chronic or 1 acute illness add add modifier 95 for video, (do not use for phone, instead use 49117-36) [facility]20[place] Estab. patient 30-39min; chronic exacerbation, 2 stable chronic or 1 acute illness add add modifier 95 for video, (do not use for phone, instead use 73015-79) [facility] 09[place]23/2022 Estab. patient 30-39min; chronic exacerbation, 2 stable chronic or 1 acute illness add add modifier 95 for video, (do not use for phone, instead use 01924-44) [facility] 09[place]23/2022 Estab. patient 30-39min; chronic exacerbation, 2 stable chronic or 1 acute illness add add modifier 95 for video, (do not use for phone, instead use 42288-19) [facility] 09[place]23/2022 Estab. patient 30-39min; chronic exacerbation, 2 stable chronic or 1 acute illness add add modifier 95 for video, (do not use for phone, instead use 36571-00) [facility] 09[place]23/2022 Estab. patient 30-39min; chronic exacerbation, 2 stable chronic or 1 acute illness add add modifier 95 for video, (do not use for phone, instead use 05000-15) [facility] 09/23/2022 Estab. patient 30-39min; chronic exacerbation, 2 stable chronic or 1 acute illness add add modifier 95 for video, (do not use for phone, instead use 31091-61) [facility] 11/28/2023 Morbid (severe) obesity due to [...] (do not use for phone, instead use 52717-04) [facility]28/2023 Estab. patient 30-39min; chronic exacerbation, 2 stable chronic or 1 acute illness add add modifier 95 for video, (do not use for phone, instead use 97377-76) [facility] 11/28/2023 Estab. patient 30-39min; chronic exacerbation, 2 stable chronic or 1 acute illness add add modifier 95 for video, (do not use for phone, instead use 44434-71) [facility] 11/28/2023 Estab. patient 30-39min; chronic exacerbation, 2 stable chronic or 1 acute illness add add modifier 95 for video, (do not use for phone, instead use 12567-02) [facility] 11/28/2023 Estab. patient 30-39min; chronic exacerbation, 2 stable chronic or 1 acute illness add add modifier 95 for video, (do not use for phone, instead use 73226-92) [facility]/2023 Estab. patient 30-39min; chronic exacerbation, 2 stable chronic or 1 acute illness add add modifier 95 for video, (do not use for phone, instead use 28202-31) [facility] 11/[place]/2023 Estab. patient 30-39min; chronic exacerbation, 2 stable chronic or 1 acute illness add add modifier 95 for video, (do not use for phone, instead use 60205-06) [facility] 11/28/2023 Estab. patient 30-39min; chronic exacerbation, 2 stable chronic or 1 acute illness add add modifier 95 for video, (do not use for phone, instead use 51135-22) [facility] 11/28/2023 Estab. patient 20-29min; 1 stable chronic or 2 minor; add add modifier 95 for video, modifier 93 for phone [facility] 08/31/2024 Morbid (severe) obesity due to [...] 95 for video, modifier 93 for phone [facility] 08/31/2024 Estab. patient 20-29min; 1 stable chronic or 2 minor; add add modifier 95 for video, modifier 93 for phone [facility] 08/31/2024 Estab. patient 20-29min; 1 stable chronic or 2 minor; add add modifier 95 for video, modifier 93 for [facility] 08/31/2024 Estab. patient 20-29min; 1 stable chronic or 2 minor; add add modifier 95 for video, modifier 93 for phone [facility] 08/31/2024 Estab. patient 20-29min; 1 stable chronic or 2 minor; add add modifier 95 for video, modifier 93 for phone [facility] 08/31/2024 Estab. patient 20-29min; 1 stable chronic or 2 minor; add add modifier 95 for video, modifier 93 for [facility] 08/31/2024 Estab. patient 20-29min; 1 stable chronic or 2 minor; add add modifier 95 for video, modifier 93 for phone [facility] 08/31/2024 Vital Signs Date of Collection [...] Time Current Smoking Status Never smoker 2024-12-02 6 Sex Female History of Procedures Procedures Service Procedure code Service date Servicing provider Phone# No Data Available [id number] 2022-05-20 No Data Available No Data Available [...] (do not use for phone, instead use 63744-33) [id number] 2022-05-23 No Data Available No Data Availa ble Estab. patient 30-39min; chronic exacerbation, 2 stable chronic or 1 acute illness add add modifier 95 for video, (do not use for phone, instead use 64060-82) [id number] 2022-09-23 No Data Available No Data Availa [...] (do not use for phone, instead use 83490-19) [id number] 2023-11-28 No Data Available No Data Availa [...] 95 for video, modifier 93 for phone [id number] 2024-08-31 No Data Available No Data Availa [...] joint pain increased Please remember to call [facility] to see PCP. Follow-up with [facility] [...] documented (1160F)Continue to see PCP. [facility] [...]
--- OUTSIDE RECORDS SUMMARY | 2024-12-17 10:17 | XMS_ITS | Clinical Summary ---
Author Organization [employer] Address [address] [place] [address] Care Team Providers Care Carton Stamper Name Role Phone Unavailable Primary Care Provider [...] Description 11/24/2024 9:00 AM EDT Office Visit [facility] ADULT DENTAL [address] [place] [address] Peter Jack DMD Resistant hypertension (Primary Dx) 09/30/2024 10:30 AM EST Office Visit [facility] ADULT DENTAL [address] [place] [address] Donovan Gonzalez DMD from Last 3 Months [...] (1 - Tdap) 07/08/2024 07/07/2024 COVID-19 Vaccine (4 - 2023- season) 2024 04/23/2024, 10/04/2020, 09/02/2020 Tobacco Screening 09/30/2025 09/30/2024 Influenza Vaccine Completed 04/23/2024, , 08/20/2022, Additional [...] patient's age to complete this topic Meningococcal B Vaccine Aged Out No l onger eligible based on patient's age to complete [...] Most Recently Relevant to Health Maintenance Insurance [address] [place] [id number] DENTAL - [facility]
[2024-12-17 10:26] VITALS: BP 118/80; PULSE 73; O2SAT 96; BMI 40.6
--- NOTE | 2024-12-17 10:26 | A.OFFVIS_ITS ---
Vital Signs 12/17/24 10:26 Height 5 ft 2 in Weight 222 lb 2 oz BMI 40.6 BP 118/80 Blood Pressure Location Lt brachial Position Sitting Pulse 73 Pulse Source Pulse Oximeter Pulse Oximetry (%) 96 Oxygen Delivery Method Room Air Intake Visit Reasons: 6m follow up amnesia Intake Note: Patient presents follow up Dementia medication. Patient daughter states no change. keeps repeating, doesn't remember. Does bingo and does good but overall memory not getting better. Photographer News Required: Yes Photographer News Services: Photographer News Offered & Declined Photographer News Name: Daughter Information Interpreted: non-clinical & clinical Accompanied by: Daughter Allergies cat dander [CAT DANDER] Allergy (Intermediate, Verified 12/17/24 10:31) skin rash mite-Dermatophagoides farinae, skyla [DUST MITES] Allergy (Intermediate, Verified 12/17/24 10:31) watery itchy eyes, sneezing HPI Comments Details: 78 y/o Right handed female comes for evaluation tremors and memory issues accompanied by her daughter Noa. Her lAbby hand tremors started about 3 years ago, they are mild and intermittent per daughter Noa, and they do not affect her ADLs. She is more concerned about her memory, her daughter has to repeat the same instructions multiple times, as she easily gets confused especially when asked to finish tasks. 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 She lives alone in a half-way apartment building, and gets confused when trying to find the location of her apartment. Her family noticed that her short term memory is worse since last year. She forgets appointments, conversations, taking medications, and frequently misplaces things. She goes to [facility] on Friday and Friday night, but is unable to locate her apartment when returning from [facility]. On Sundays she goes to [employer], she reads the bible, and her prayer book daily at night. She has depression and anxiety especially when she loses things, she gets overwhelmed. She denies h/o falls, constipation, diarrhea, eats a well balanced diet, uses her rolling walker to ambulate, her family checks on her daily. The loan review manager comes daily to help her with tasks. She has had trouble falling asleep for many years, better now since she is seeing a urologist for kidney stones, drinking more water, she goes to the bathroom 1-2x a night. She snores at night occasionally, and has arthritis so she does not sleep well due to the pain. Her mother also had dementia at 80 year old. [facility] Medical History Chronic ulcer of leg, limited to breakdown of skin Dementia Multinodular goiter HX: breast cancer Thyroid disease Depression Obesity (BMI 30-39.9) Vitamin D deficiency Migraine GERD without esophagitis Anemia Asthma Pure hypercholesterolemia Environmental allergies Venous (peripheral) insufficiency Complex renal cyst Morbid obesity with BMI of 40.0-44.9, adult Gall stones Mild major depression Dyslipidemia Tremor of left hand Invasive ductal carcinoma of left breast Non-toxic multinodular goiter Lumbar degenerative disc disease Renal calculi Insomnia Constipation due to opioid therapy Essential hypertension Surgical History History of left cataract surgery Hx of varicose vein stripping Hx of cystoscopy Hx of biopsy H/O colonoscopy Hx of dilation and curettage History of esophagogastroduodenoscopy (EGD) Hx of hand surgery History of lumpectomy of left breast History of lithotripsy History of left knee replacement History of section Family History Father Medical history unknown Mother Lung cancer Colon cancer Social History Household Members: None Household Members Other:: daughter Housing: Apartment Are you a primary director of patient care to a significant other at home: No Do you presently have visiting nurse or other home services: Yes (FACILITIES PLANNER) Alcohol intake: never Patient Tobacco Use Status: Never used Tobacco e-Cigarette/Vaping Use: Never Used Second Hand Smoke Exposure: No service: No 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al status: unemployed and disabled 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 Cognitive needs: Yes (cane, walker) Hearing needs: No Vision needs: Yes Review of Systems Neuro Reports confusion Psych Reports confusion Physical Exam Vital Signs: Last Vital Signs Pulse 73 12/17/24 10:26 BP 118/80 12/17/24 10:26 Pulse Ox 96 12/17/24 10:26 Oxygen Delivery Method Room Air 12/17/24 10:26 BMI result Body Mass Index 40.6 Const General: cooperative and confusion Nutritional Appearance: obese Orientation/consciousness: confusion HEENT Face and sinus: Yes face symmetric Resp Effort & Inspection: normal respiratory effort and able to speak in complete sentences Neuro Other: walks with walker- slow antalgic gait Left UE rest tremors whne anxious FFM and foot taps decreased General: tone normal, moves all extremities, no focal motor deficits and confusion Cranial nerves: Yes Facial sensation intact/muscles of mastication intact, Yes Normal facial strength present and Yes Midline tongue present Cognition (Neuro): abnormal cognition Gait exam (Neuro): Antalgic gait present Motor exam (neuro): 5/5 motor strength present throughout and Normal motor muscle tone present throughout Deep tendon reflexes (DTR's): Right triceps reflex intensity grade: 1+, Left triceps reflex intensity grade: 1+, Rt Biceps (C5, C6): 1+, Left biceps reflex intensity grade: 1+, Right brachioradialis reflex intensity grade: 1+, Left brachioradialis reflex intensity grade: 1+, Right patellar reflex intensity grade: 1+ and Left patellar reflex intensity grade: 1+ Coordination: [id number]-vl-[id number] test normal Psych Appearance: well kempt Affect: Anxious affect present Attitude: cooperative Orientation What is the (year) (season) (date) (day) (month)?: season, day and month Where are we (state) (county) (town or city) (hospital) (floor)?: state, hospital/clinic and floor Registration Name of 3 unrelated objects clearly and slowly, then ask patient to repeat all 3 of them. (1st repeat determines score. Make sure they can repeat all three): object 1, object 2 and object 3 Attention & Calculation (CHOOSE ONE) Spell WORLD backwards (DLROW): 4 letters Language Show patient a wristwatch & ask what it is. Repeat for pencil.: watch and pencil Ask the patient to repeat the phrase 'No ifs, ands, or buts' after you.: correct Ask the patient to 'take a piece of paper with their right hand' 'fold paper in half' 'place paper on floor': take paper in right hand, fold paper in half and place paper on floor Print the sentence 'CLOSE YOUR EYES' on a piece. If patient actually closes eyes then score.: followed written direction Give patient a blank piece of paper & ask to write a sentence. Score if it contains a noun & verb.: sentence contains subject and verb Score Score: 21 Results Reviewed Results Reviewed: MR/MR head/brain wo con IMPRESSION: 1. No acute intracranial abnormalities. 2. Moderate underlying microangiopathy and generalized cerebral volume loss. Assessment & Plan Assessment & Plan (1) Dementia: Comment: Alzheimers vs Mixed Code(s): F03.90 - Unspecified dementia, unspecified severity, without behavioral disturbance, psychotic disturbance, mood disturbance, and anxiety Category: Medical Qualifiers: Alzheimer's disease onset: unspecified onset Dementia behavioral or psychological symptom: unspecified whether behavioral, psychotic, or mood disturbance or anxiety Dementia severity: moderate Dementia type: Alzheimer's Qualified Code(s): G30.9 - Alzheimer's disease, unspecified; F02.B0 - Dementia in other diseases classified elsewhere, moderate, without behavioral disturbance, psychotic disturbance, mood disturbance, and anxiety (2) Tremor of left hand: Code(s): R25.1 - Tremor, unspecified Category: Medical (3) Cognitive decline: Code(s): R41.89 - Other symptoms and signs involving cognitive functions and awareness Category: Medical Plan HST Insomnia sleep difficulties, Continue Melatonin 5mg to 10mg as needed 3 hours prior to sleep. Reviewed MRI Brain results with daughter, emphasized use of CPAP for brain health. Labs reviewed TSH and B12 levels were normal Cognitive decline MMSE 21 today, Continue memantine 10mg po BID Encouraged to increase her physical and cognitive activity. Reading, puzzles, dancing, walking, swimming. Tremor does not bother her, I will monitor her clinically. F/u in 3 months after HST. Orders: Orders RT home sleep study Today G47.19 - Other hypersomnia Medications: Changed From memantine 1 tab qd for 7 days then 1 tab 2 times a day 10 mg PO BID 60 tabs 6RF R41.89 - Other symptoms and signs involving cognitive functions and awareness To memantine 1, 10mg tablet in the morning and 1, 10mg tablet in the evening daily. 10 mg PO BID 90 days 180 tabs 6RF dementia MDD 20mg R41.89 - Other symptoms and signs involving cognitive functions and awareness Patient Instructions: Will evaluate sleep with HST, if possible to assess sleep as patient has alzheimers dementia. Cognitive Decline, continue to socialize, do daily readings, puzzles, dancing, walking, swimming as tolerable. Engage in community events and social outgoings with your [employer] as much as possible. CPAP therapy can help patient as patient has HTN and Insomnia. Discussed weight management and daily exercise for arthritis, and joint pain. Massage therapy and accupuncture, decline PT today. Coding Level of Care Code Est Pt Level 4 (15447) Diagnoses Moderate Alzheimer's dementia, unspecified timing of dementia onset, unspecified whether behavioral, psychotic, or mood disturbance or anxiety G30.9; F02.B0 Alzheimer's disease onset: unspecified onset Dementia behavioral or psychological symptom: unspecified whether behavioral, psychotic, or mood disturbance or anxiety Dementia severity: moderate Dementia type: Alzheimer's Tremor of left hand R25.1 Cognitive decline R41.89 Time Spent (min) 30
== END 2024-12-17 11:15 | disposition home or self-care (01) ==
LOC: HO.HSMS 09:59
PROVIDERS: PCP Internal Medicine; Visit Provider Physician Assistant Medical
DX: G30.9 Alzheimer's disease, unspecified (principal); F02.B0 Dementia in other diseases classified elsewhere, moderate, without behavioral disturbance, psychotic disturbance, mood disturbance, and anxiety; R25.1 Tremor, unspecified; R41.89 Other symptoms and signs involving cognitive functions and awareness
CPT/HCPCS: 99214

== ENCOUNTER → 2024-12-17 09:58 | Outpatient (BNVA) | payer OTHER, SELFPAY | PROVIDERS: PCP Internal Medicine; Visit Provider Physician Assistant Medical | DX: G30.9 Alzheimer's disease, unspecified (principal); F02.B0 Dementia in other diseases classified elsewhere, moderate, without behavioral disturbance, psychotic disturbance, mood disturbance, and anxiety; R25.1 Tremor, unspecified; R41.89 Other symptoms and signs involving cognitive functions and awareness | CPT/HCPCS: 99212 ==

== ENCOUNTER 2024-12-30 11:44 | Outpatient (REF) | payer OTHER, SELFPAY ==
--- NOTE | ~2024-12-30 | US_ITS ---
CLINICAL HISTORY: N20.0 - Calculus of kidney US Renal Comparison: None Findings: Right kidney normal size and echotexture, 10.8 cm length. Left kidney normal size and echotexture, 10.3 cm length. There are bilateral Bosniak 1 cysts, largest on the right measuring 3.7 x 3.7 x 3.3 cm. There is a right renal parenchymal calculus. No hydronephrosis of either kidney. Normal color Doppler IMPRESSION: 1. Bilateral Bosniak 1 cysts and right renal parenchymal calculus. No acute findings. This document has been electronically signed by: Candido Thorne MD on 12/31/2024 09:40:15
--- OUTSIDE RECORDS SUMMARY | 2024-12-30 12:00 | XMS_ITS ---
Author Name Gail CORPORATE CONSULTANT,SENIOR MECHANICAL PROJECT MANAGER,FN P,CLOCK AND WATCH HANDS MOUNTER, Sarah Address [address] [place] [address] Phone [phone] [facility] Care Team Providers Care [employer] Name Role Phone Sarah Reynolds Unavailable [phone] HUSEYIN MELL GANDHI Unavailable [phone] Reason for Referral Not Available Allergies, adverse [...] 100 mg Tab take 2 tablet by [facility] 2021-10-09 No Data Available Spiriva [...] FOR 7 DAYS 2022-03-29 No Data Available [id number]-[id number]-EB [id number] Suspension SHAKE LIQUID AND INSTILL 4 DROPPERFUL [...] List Problem Status Onset Date Resolved Date Synopsis Gastritis Resolved 2022-05-20 2022-05-23 05/20/22:- Lik parmjit viral illness. Advised daughter to push fluids, and if Estefany does not feel like eating and wants to sleep that is okay, As long as she can take her medications. - Camelia sent in for nausea- Encouraged her to call back if symptoms worsen or do not improve in 24h. Neuropathic pain Active 2023-11-28 N/A Daughter reports gabapentin was recently d/c'd Other problems related to medical facilities and other health care Active 2023-10-14 N/A When membe r to call: 1. If bp is elevated sbp>150; dbp>90 or symptomatic-h/a, dizziness, cp, sob. 2. if there is a fall 3. if BS >300 or BS<90 or symptomatic; i.e., dizzy, off balance , shaky, general weakness. 4. if UTI symptoms arise-urinary frequency, dysuria, low abd pain. 5. if pain in knees increases/ or joint pain increased [facility]. Follow-up with [facility] as needed for any acute or disease education needs that may arise 24/02.what should be done when the member calls: see each individual diagnosis for contingency plan Body mass index [BMI] 40.0-44.9, adult Active 2022-05-22 N/A BMI: 38Discusse d healthier eating optionsIncreasing physical activity Major depressive disorder, recurrent, moderate Active 2022-05-23 N/A Rx: Sertraline, trazadoneNotify provider with any changes in behavior, difficulty sleeping, or new/worsening depressive symptoms.Continue to follow up with PCP Severe persistent allergic asthmaChronic obstructive pulmonary disease, unspecified Active 2023-11-28 N/A Rx: PRN alb uterol, fluticasone proprionate, montelukast, centirizine, olapatadineShe reports patient has severe allergies. Followed by a specialist. She reports that the olapatadine was recently not covered by the insurance and she called PCP office today for f/u. history of Malignant neoplasm of unspecified site of left female breast Active 2022-05-23 N/A Rx: letrozole (discontinued)Remission many yearsMammogram 03/2022 - WNL per daughter Hyperlipidemia Active 2023-11-28 N/A Rx: Atorva statin11/2022: Total Chol 185, HDL 51, LDL 120 Hypertension Active 2023-11-28 N/A Rx: losartan , amlodipineEncourage low sodium diet. Encouraged daily blood pressure checks and tracking. Instructed patient to notify CB or PCP if blood pressure >140/90 or <90/50.Continue to follow up with PCP Unspecified dementia, unspecified severity, without behavioral disturbance, psychotic disturbance, mood disturbance, and anxiety Active 2024-08-31 N/A Rx: MemantineCur rent condition: stable at this time, intermittent forgetfulness Managed by PCP/NeuroReassure the person, Respect the person? s personal space. Build quiet times into the day, along with activities Encounters Encounters Type Facility Date of Service Diagnosis/Co mplaint No Data Available [facility] [place]20[place] Gastritis, unspecified, with out bleeding Pain Assessment - Pain Documented on a Pain Scale (1125F) [facility] [place] Pain Assessment - Pain Documented on a Pain Scale (1125F) [facility] [place] Pain Assessment - Pain Documented on a Pain Scale (1125F) [facility] [place] Pain Assessment - Pain Documented on a Pain Scale (1125F) [facility] [place] Pain Assessment - Pain Documented on a Pain Scale (1125F) [facility] [place] Pain Assessment - Pain Documented on a Pain Scale (1125F) [facility] [place] Pain Assessment - Pain Documented on a Pain Scale (1125F) [facility] [place] Pain Assessment - Pain Documented on a Pain Scale (1125F) [facility] [place]20[place] Pain Assessment - Pain Documented on a Pain Scale (1125F) [facility] [place]20[place] Chronic obstructive pulmonar [...] (do not use for phone, instead use [id number]) [facility] [place] 09[place]20[place] Chronic obstructive pulmonar y disease, [...] (do not use for phone, instead use 18340-31) [facility] [place] Estab. patient 30-39min; chronic exacerbation, 2 stable chronic or 1 acute illness add add modifier 95 for video, (do not use for phone, instead use 57413-17) [facility] [place] Estab. patient 30-39min; chronic exacerbation, 2 stable chronic or 1 acute illness add add modifier 95 for video, (do not use for phone, instead use 38749-80) [facility] [place] Estab. patient 30-39min; chronic exacerbation, 2 stable chronic or 1 acute illness add add modifier 95 for video, (do not use for phone, instead use 24831-68) [facility] [place] Estab. patient 30-39min; chronic exacerbation, 2 stable chronic or 1 acute illness add add modifier 95 for video, (do not use for phone, instead use 29462-63) [facility] [place] Estab. patient 30-39min; chronic exacerbation, 2 stable chronic or 1 acute illness add add modifier 95 for video, (do not use for phone, instead use 08696-21) [facility] [place] Estab. patient 30-39min; chronic exacerbation, 2 stable chronic or 1 acute illness add add modifier 95 for video, (do not use for phone, instead use 19288-63) [facility] [place] Estab. patient 30-39min; chronic exacerbation, 2 stable chronic or 1 acute illness add add modifier 95 for video, (do not use for phone, instead use 03402-18) [facility] [place]20[place] Estab. patient 30-39min; chronic exacerbation, 2 stable chronic or 1 acute illness add add modifier 95 for video, (do not use for phone, instead use 62766-57) [facility] [place]2023 Morbid (severe) obesity due to excess [...] (do not use for phone, instead use 82606-31) [facility] [place]20[place] Estab. patient 30-39min; chronic exacerbation, 2 stable chronic or 1 acute illness add add modifier 95 for video, (do not use for phone, instead use 99222-98) [facility] [place]20[place] Estab. patient 30-39min; chronic exacerbation, 2 stable chronic or 1 acute illness add add modifier 95 for video, (do not use for phone, instead use 96592-84) [facility] [place]20[place] Estab. patient 30-39min; chronic exacerbation, 2 stable chronic or 1 acute illness add add modifier 95 for video, (do not use for phone, instead use 23038-03) [facility] [place]2023 Estab. patient 30-39min; chronic exacerbation, 2 stable chronic or 1 acute illness add add modifier 95 for video, (do not use for phone, instead use 40456-62) [facility] [place]20[place] Estab. patient 30-39min; chronic exacerbation, 2 stable chronic or 1 acute illness add add modifier 95 for video, (do not use for phone, instead use 76668-40) [facility] [place]2023 Estab. patient 30-39min; chronic exacerbation, 2 stable chronic or 1 acute illness add add modifier 95 for video, (do not use for phone, instead use 07605-04) [facility] [place]2023 Estab. patient 30-39min; chronic exacerbation, 2 stable chronic or 1 acute illness add add modifier 95 for video, (do not use for phone, instead use 86528-37) [facility] [place]2023 Estab. patient 20-29min; 1 stable chronic or 2 minor; add add modifier 95 for video, modifier [address] [facility] [place]2024 Morbid (severe) obesity due to excess caloriesSevere persistent asthma, uncomplicatedChronic obstructive pulmonary disease, unspecifiedMajor depressive disorder, recurrent, moderateUnspecified dementia without behavioral disturbanceHyperlipidemia, unspecifiedNeuralgia and neuritis, unspecifiedEssential (primary) hypertensionOther problems related to medical facilities and other health carePersonal history of malignant neoplasm of breast Estab. patient 20-29min; 1 stable chronic or 2 minor; add add modifier 95 for video, modifier [address] [facility] [place]20[place] Estab. patient 20-29min; 1 stable chronic or 2 minor; add add modifier 95 for video, modifier [address] [facility] [place]20[place] Estab. patient 20-29min; 1 stable chronic or 2 minor; add add modifier 95 for video, modifier [address] [facility] [place]20[place] Estab. patient 20-29min; 1 stable chronic or 2 minor; add add modifier 95 for video, modifier [address] [facility] [place]20[place] Estab. patient 20-29min; 1 stable chronic or 2 minor; add add modifier 95 for video, modifier [address] [facility] [place]/20[place] Estab. patient 20-29min; 1 stable chronic or 2 minor; add add modifier 95 for video, modifier [address] [facility] [place]/20[place] Estab. patient 20-29min; 1 stable chronic or 2 minor; add add modifier 95 for video, modifier [address] [facility] [place]/2024 Vital Signs Date of Collection Vitals [...] tive Time Current Smoking Status Never smoker 2024-12-03 7 Sex Female History of Procedures Procedures Service Procedure code Service date Servicing provider Phone# No Data Available [id number] 2022-05-20 No Data Available No Data Available [...] (do not use for phone, instead use 92549-72) [id number] 2022-05-23 No Data Available No Data Availa ble Estab. patient 30-39min; chronic exacerbation, 2 stable chronic or 1 acute illness add add modifier 95 for video, (do not use for phone, instead use 84974-38) [id number] 2022-09-23 No Data Available No Data Availa [...] (do not use for phone, instead use 60425-53) [id number] 2023-11-28 No Data Available No Data Availa [...] 95 for video, modifier 93 for phone [id number] 2024-08-31 No Data Available No Data Availa [...] Assessments 2022-05-20 10:27:36 Follow up plan for seema nolasco symptoms:Gastritis 2022-05-23 07:11:36 Chronic obstructive pulmonary disease, [...] Documented (1125F)Continue to see PCP. Follow-up with [facility] as [...] call CBContinue to see PCP. Follow-up with [facility] as [...] ER. 2022-05-23 Discussed how to con tact [facility] via phone or tablet. 2022-09-23 Keep follow [...]
== END 2024-12-30 11:45 | disposition home or self-care (01) ==
LOC: HO.US 11:44
PROVIDERS: PCP Internal Medicine; Visit Provider Urology
DX: N20.0 Calculus of kidney (principal)
CPT/HCPCS: 76775

== ENCOUNTER → 2024-12-30 11:47 | Outpatient (BNV) | payer OTHER, SELFPAY | PROVIDERS: PCP Internal Medicine; Visit Provider Specialist | DX: N20.0 Calculus of kidney (principal); N28.1 Cyst of kidney, acquired | CPT/HCPCS: 76775 ==

== ENCOUNTER 2025-01-05 10:20 | Outpatient (AMB) | payer OTHER, SELFPAY ==
--- NOTE | 2025-01-05 10:23 | A.OFFVIS_ITS ---
Intake Visit Reasons: 1y/US Intake Note: Pt presents to the office today for a 1 year follow up/US Urology Meds:None Blood thinners: Aspirin Allergies cat dander [CAT DANDER] Allergy (Intermediate, Verified 01/05/25 10:52) skin rash mite-Dermatophagoides farinae, skyla [DUST MITES] Allergy (Intermediate, Verified 01/05/25 10:52) watery itchy eyes, sneezing Medication List - Last Reconciled 01/05/25 by SHARIFA Colvin- acetaminophen (Tylenol) 325 mg PO BID PRN albuterol sulfate 90 mcg/actuation 1 - 2 puffs PO Q4-6H PRN 30 days amlodipine 5 mg PO DAILY aspirin 81 mg PO DAILY 90 days atorvastatin 80 mg PO BEDTIME 90 days cetirizine 10 mg PO DAILY cholecalciferol (vitamin D3) 25 mcg PO DAILY epinephrine 0.3 mL IM DAILY PRN ferrous sulfate (Iron (ferrous sulfate)) 325 mg PO DAILY 30 days furosemide 40 mg PO DAILY 90 days losartan 100 mg PO DAILY 90 days magnesium citrate 296 mL PO ONCE memantine 10 mg PO BID 90 days MDD 20mg mometasone 0.1% 1 appl topical DAILY PRN [id number]-bclmvwga-owiugt 1 tab PO DAILY nystatin 1 appl topical DAILY PRN 30 days olopatadine 0.1% 1 drp ophthalmic (eye) DAILY omega-3 fatty acids 1,000 mg PO DAILY omeprazole 20 mg PO DAILY 90 days oxycodone 5 mg PO BID 30 days polyethylene glycol 3350 17 grams PO DAILY 30 days sennosides (senna) 8.6 mg PO BEDTIME PRN 30 days sertraline 200 mg PO DAILY sumatriptan succinate 25 mg PO Q2-4H PRN 30 days trazodone 150 mg PO BEDTIME walker with wheels HPI Comments Details: Estefany is a very pleasant 79-year-old Mexican speaking female patient of Dr. Miller who was accompanied by her daughter at today's office visit. She has a past medical history of dementia, breast cancer, depression, obesity, migraines, GERD, anemia, asthma, hypercholesteremia, environmental allergies, venous peripheral insufficiency, depression, dyslipidemia, tremors, nephrolithiasis, lumbar degenerative disc disease, insomnia, hypertension, and constipation. She presents to the office today for follow-up of her nephrolithiasis. In discussion with the patient and her daughter today she denies having had any bothersome urinary issues or concerns since her last office visit here. Recent renal imaging results were reviewed 12/26 bilateral kidneys are normal in size and echotexture. There are bilateral Bosniak 1 cyst. There is a right renal parenchymal calculus. No acute findings. When asked she does continue to report drinking plenty of water daily. She denies urinary urgency, urinary frequency, incontinence, nocturia, hematuria, dysuria, foul smelling urine, changes to urinary stream, flank pain, fever, and or chills. She does report ongoing left-sided lumbar/hip discomfort. She is happy with her current voiding parameters. She otherwise offers no other issues or concerns at this time. Previous office note: Nephrolithiasis/Urolithiasis: Stopped vitamin B6 They are here for further evaluation of nephrolithiasis - discussed imaging result, encouraged fluids Urolithiasis was diagnosed 01/2017. Prior intervention - 12/22 ESWL right side, 05/25 ESWL right with stent The patient previously had kidney stones whose composition w unknown. Laboratory investigations include no recent labs. 24 Hour urine evaluation none on file Prior imaging includes 01/18 , a renal ultrasound right kidney 5 mm stone located in right lower pole . 3x 3cm cysts. Left kidney no evidence of 02/17 , a CT with , Right 6mm, non obstructing stone 09/21 , a renal ultrasound, showing radiodense stone(s), R 6 mm 08/22 , a renal ultrasound, bilateral cysts, right 4mm stone 09/23 , a renal ultrasound bilateral renal cysts, 6mm stone right side 12/24 renal ultrasound, persistent small stone right side, imbedded in tissue 12/25 renal ultrasound persistent 6 mm right-sided stone with cyst. Unchanged Hydronephrosis none. Current therapeutic plan will be hydration with interval imaging [facility] Medical History Chronic ulcer of leg, limited to breakdown of skin Dementia Multinodular goiter HX: breast cancer Thyroid disease Depression Obesity (BMI 30-39.9) Vitamin D deficiency Migraine GERD without esophagitis Anemia Asthma Pure hypercholesterolemia Environmental allergies Venous (peripheral) insufficiency Complex renal cyst Morbid obesity with BMI of 40.0-44.9, adult Gall stones Mild major depression Dyslipidemia Tremor of left hand Invasive ductal carcinoma of left breast Non-toxic multinodular goiter Lumbar degenerative disc disease Renal calculi Insomnia Constipation due to opioid therapy Essential hypertension Surgical History History of left cataract surgery Hx of varicose vein stripping Hx of cystoscopy Hx of biopsy H/O colonoscopy Hx of dilation and curettage History of esophagogastroduodenoscopy (EGD) Hx of hand surgery History of lumpectomy of left breast History of lithotripsy History of left knee replacement History of section Family History Father Medical history unknown Mother Lung cancer Colon cancer Social History Household Members: None Household Members Other:: daughter Housing: Apartment Are you a primary lawn caretaker to a significant other at home: No Do you presently have 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) Alcohol intake: never Patient Tobacco Use Status: Never used Tobacco e-Cigarette/Vaping Use: Never Used Second Hand Smoke Exposure: No service: No 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al status: unemployed and disabled 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 Cognitive needs: Yes (cane, walker) Hearing needs: No Vision needs: Yes Review of Systems Eyes Reports no additional complaints ENT Reports no additional complaints Card Reports as per HPI Resp Reports as per HPI GI Reports as per HPI Reports as per HPI Musc Reports as per HPI Skin/Breast Reports as per HPI Neuro Reports as per HPI Psych Reports as per HPI Endo Reports as per HPI Edin/Lymph Reports no additional complaints Aller/Immun Reports as per HPI Physical Exam Const General: cooperative, healthy appearing, comfortable, no acute distress, well developed, alert and awake Nutritional Appearance: overweight Orientation/consciousness: patient oriented x3 Limitations: language barrier and ambulation with walker HEENT Head: Yes normal to inspection, Yes normocephalic and Yes atraumatic Ears: hearing grossly normal bilaterally Eyes General: appearance normal, both eyes and all related structures Neck Neck: Yes normal visual inspection and Yes trachea midline Chest Chest palpation & inspection: normal inspection of the chest Resp Effort & Inspection: normal respiratory effort and able to speak in complete sentences Cardio Rate: regular rate GI Inspection: Yes normal to inspection General: Yes no CVA tenderness Back/Spine/Pelvis Back: no CVA tenderness Skin General skin exam: no rashes or lesions noted Neuro General: patient oriented x3 Extrem General: Yes normal to inspection Psych Appearance: grossly normal and well kempt Mental Status: mental status grossly normal Speech and movement: Normal speech and movement present and Clear speech present Affect: normal affect Attitude: cooperative Thought process: Normal thought process present Thought content: Normal thought content present Insight: Fair insight present (Psych) Judgement: Fair judgement present (Psych) Results AMB Urinalysis, Automated UA Leukoctes 15 Sarina/uL Last Edit by Yasmeen Ellis CMA on 01/05/25 10:34 UA Nitrite Negative Last Edit by Yasmeen Ellis CMA on 01/05/25 10:34 UA Urobilinogen 0.2 mg/dL Last Edit by Yasmeen Ellis CMA on 01/05/25 10:34 UA Protein 15 mg/dL Last Edit by Yasmeen Ellis CMA on 01/05/25 10:34 UA pH 6.0 Last Edit by Yasmeen Ellis CMA on 01/05/25 10:34 UA Blood 10 Ministerio/uL Last Edit by Yasmeen Ellis CMA on 01/05/25 10:34 UA Specific [place] 1.010 Last Edit by Yasmeen Ellis CMA on 01/05/25 10:34 UA Ketone Negative Last Edit by Yasmeen Ellis CMA on 01/05/25 10:34 UA Bilirubin 0 mg/dL Last Edit by Yasmeen Ellis CMA on 01/05/25 10:34 UA Glucose 0 mg/dL Last Edit by Yasmeen Ellis CMA on 01/05/25 10:34 Results Reviewed Results Reviewed: Laboratory Last Values Urine pH (Auto) 6.0 01/05/25 10:32 Specific [place] (Auto) 1.010 01/05/25 10:32 Urine Protein (Auto) 15 mg/dL 01/05/25 10:32 Glucose (UA)(Auto) 0 mg/dL 01/05/25 10:32 Urine Ketones (Auto) Negative 01/05/25 10:32 Urine Blood (Auto) 10 Ministerio/uL 01/05/25 10:32 Urine Nitrite (Auto) Negative 01/05/25 10:32 Urine Bilirubin (Auto) 0 mg/dL 01/05/25 10:32 Urine Urobilinogen (Auto) 0.2 mg/dL 01/05/25 10:32 Leukocyte Esterase (Auto) 15 Sarina/uL 01/05/25 10:32 Date of Service: 12/30/24 Procedure(s): US renal BI US Renal Comparison: None Findings: Right kidney normal size and echotexture, 10.8 cm length. Left kidney normal size and echotexture, 10.3 cm length. There are bilateral Bosniak 1 cysts, largest on the right measuring 3.7 x 3.7 x 3.3 cm. There is a right renal parenchymal calculus. No hydronephrosis of either kidney. Normal color Doppler IMPRESSION: 1. Bilateral Bosniak 1 cysts and right renal parenchymal calculus. No acute findings. Assessment & Plan Assessment & Plan (1) Renal calculi: Comment: 12/22 ESWL Right side 9mm - tissue imbedded Code(s): N20.0 - Calculus of kidney Category: Medical (2) Renal cyst: Code(s): N28.1 - Cyst of kidney, acquired Category: Medical Plan In office urinalysis results reviewed with the patient today; as noted above. Recent renal imaging results reviewed with the patient and her daughter today; as noted above. She currently denies any bothersome urinary issues or concerns. She reports be happy with current voiding parameters. Will continue with surveillance monitoring. We discussed the importance of adequate hydration relation to nephrolithiasis as well as overall health and well-being. Continue adding 1 oz of lemon juice to water daily. Will obtain renal ultrasound in 1 year. Follow-up in 1 year with imaging to be completed prior; or sooner with any issues, concerns, and or questions. Orders: Orders AMB Urinalysis Automated Today N39.0 - Urinary tract infection, site not specified US renal BI 1 Year N20.0 - Calculus of kidney Patient Instructions: The patient had an opportunity to ask questions regarding the treatment plan. All questions were answered. Physical exam, labs, and imaging were discussed and reviewed in detail. As well as risks, benefits, and discussion of treatment choices. No major barriers to understanding were identified. The patient expressed understanding and agreement with the above treatment plan. The patient was made aware they should contact our office by phone for worsening of their current condition, the appearance of new symptoms, or with any questions or concerns. Compliance is encouraged with any medications and follow up testing that is ordered. It is a privilege to be allowed the opportunity to participate in? your urological care.? Again, if you have any questions or concerns If you have any questions or concerns please do not hesitate to contact me. The office is [phone]. This note is constructed using voice recognition software. While every effort has been made to ensure accuracy director pediatric errors may have been included. Yours sincerely, RAD Colvin Coding Level of Care Code Est Pt Level 3 (19438) Complex EM visit Add On G2211 Diagnoses Renal calculi N20.0 Renal cyst N28.1
--- OUTSIDE RECORDS SUMMARY | 2025-01-05 11:00 | XMS_ITS ---
Author Name Gail DOCUMENTATION WRITER,MERCHANT MILLER,FN P,SECURITY ENGINEER, Sarah Address [address] [place] [address] Phone [phone] [facility] Care Team Providers Care Minibus Driver Name Role Phone Sarah Reynolds Unavailable [phone] HUSEYIN MELL GANDHI Unavailable [phone] Reason for Referral Not Available Allergies, adverse [...] FOR 7 DAYS 2022-03-29 No Data Available Wxslpowg-Lzdekfpnh-FQ 3.5-29325-3 Suspension SHAKE LIQUID AND INSTILL 4 DROPPERFUL [...] joint pain increased [facility]. Follow-up with Blade as [...] of Service Diagnosis/Co mplaint No Data Available [facility] [place] Gastritis, unspecified, with out bleeding Pain Assessment - Pain Documented on a Pain Scale (1125F) [facility] [place] Pain Assessment - Pain Documented on a Pain Scale (1125F) [facility] [place] Pain Assessment - Pain Documented on a Pain Scale (1125F) [facility] [place] Pain Assessment - Pain Documented on a Pain Scale (1125F) [facility] [place] Pain Assessment - Pain Documented on a Pain Scale (1125F) [facility] [place] Pain Assessment - Pain Documented on a Pain Scale (1125F) [facility] [place] Pain Assessment - Pain Documented on a Pain Scale (1125F) [facility] [place] Pain Assessment - Pain Documented on a Pain Scale (1125F) [facility] [place] Pain Assessment - Pain Documented on a Pain Scale (1125F) [facility] [place] Chronic obstructive pulmonar [...] (do not use for phone, instead use 95306-14) [facility] [place] Chronic obstructive pulmonar [...] (do not use for phone, instead use 63326-75) [facility] ([place] 09[place] Estab. patient 30-39min; chronic exacerbation, 2 stable chronic or 1 acute illness add add modifier 95 for video, (do not use for phone, instead use 07361-54) [facility] [place] Estab. patient 30-39min; chronic exacerbation, 2 stable chronic or 1 acute illness add add modifier 95 for video, (do not use for phone, instead use 66582-99) [facility] [place] Estab. patient 30-39min; chronic exacerbation, 2 stable chronic or 1 acute illness add add modifier 95 for video, (do not use for phone, instead use 61082-22) [facility] [place] Estab. patient 30-39min; chronic exacerbation, 2 stable chronic or 1 acute illness add add modifier 95 for video, (do not use for phone, instead use 14466-19) [facility] [place] Estab. patient 30-39min; chronic exacerbation, 2 stable chronic or 1 acute illness add add modifier 95 for video, (do not use for phone, instead use 98070-27) [facility] Estab. patient 30-39min; chronic exacerbation, 2 stable chronic or 1 acute illness add add modifier 95 for video, (do not use for phone, instead use 24840-66) [facility] [place] Estab. patient 30-39min; chronic exacerbation, 2 stable chronic or 1 acute illness add add modifier 95 for video, (do not use for phone, instead use 62969-43) [facility] Estab. patient 30-39min; chronic exacerbation, 2 stable chronic or 1 acute illness add add modifier 95 for video, (do not use for phone, instead use 62209-47) [facility] [place]/2023 Morbid (severe) obesity due to excess [...] (do not use for phone, instead use 51221-78) [facility] [place] Estab. patient 30-39min; chronic exacerbation, 2 stable chronic or 1 acute illness add add modifier 95 for video, (do not use for phone, instead use 53000-41) [facility] [place]/20[place] Estab. patient 30-39min; chronic exacerbation, 2 stable chronic or 1 acute illness add add modifier 95 for video, (do not use for phone, instead use 57228-15) [facility] [place] 11[place]/2023 Estab. patient 30-39min; chronic exacerbation, 2 stable chronic or 1 acute illness add add modifier 95 for video, (do not use for phone, instead use 04626-70) [facility] [place] 11[place]/2023 Estab. patient 30-39min; chronic exacerbation, 2 stable chronic or 1 acute illness add add modifier 95 for video, (do not use for phone, instead use 63680-18) [facility] [place]/2023 Estab. patient 30-39min; chronic exacerbation, 2 stable chronic or 1 acute illness add add modifier 95 for video, (do not use for phone, instead use 13410-84) [facility] [place]/2023 Estab. patient 30-39min; chronic exacerbation, 2 stable chronic or 1 acute illness add add modifier 95 for video, (do not use for phone, instead use 32809-18) [facility] [place] 11[place]28/2023 Estab. patient 30-39min; chronic exacerbation, 2 stable chronic or 1 acute illness add add modifier 95 for video, (do not use for phone, instead use 53590-71) [facility] [place]/28/2023 Estab. patient 20-29min; 1 stable chronic or 2 minor; add add modifier 95 for video, modifier 93 for phone [facility] [place] 08[place]/2024 Morbid (severe) obesity due to excess caloriesSevere persistent asthma, uncomplicatedChronic obstructive pulmonary disease, unspecifiedMajor depressive disorder, recurrent, moderateUnspecified dementia without behavioral disturbanceHyperlipidemia, unspecifiedNeuralgia and neuritis, unspecifiedEssential (primary) hypertensionOther problems related to medical facilities and other health carePersonal history of malignant neoplasm of breast Estab. patient 20-29min; 1 stable chronic or 2 minor; add add modifier 95 for video, modifier 93 for phone [facility] [place] 08/[place]/2024 Estab. patient 20-29min; 1 stable chronic or 2 minor; add add modifier 95 for video, modifier 93 for phone [facility] [place] 08[place]31/2024 Estab. patient 20-29min; 1 stable chronic or 2 minor; add add modifier 95 for video, modifier 93 for phone [facility] [place] 08/31/2024 Estab. patient 20-29min; 1 stable chronic or 2 minor; add add modifier 95 for video, modifier 93 for phone [facility] [place] 08/31/2024 Estab. patient 20-29min; 1 stable chronic or 2 minor; add add modifier 95 for video, modifier 93 for phone [facility] [place] 08/[place]/20[place] Estab. patient 20-29min; 1 stable chronic or 2 minor; add add modifier 95 for video, modifier 93 for phone [facility] [place] 08/31/2024 Estab. patient 20-29min; 1 stable chronic or 2 minor; add add modifier 95 for video, modifier 93 for phone [facility] [place] 08/31/2024 Vital Signs Date of Collection Vitals [...] tive Time Current Smoking Status Never smoker 4 Sex Female History of Procedures Procedures Service Procedure code Service date Servicing provider Phone# No Data Available [id number] 2022-05-20 No Data Available No Data Available [...] (do not use for phone, instead use 18906-47) [id number] 2022-05-23 No Data Available No Data Availa ble Estab. patient 30-39min; chronic exacerbation, 2 stable chronic or 1 acute illness add add modifier 95 for video, (do not use for phone, instead use 19579-79) [id number] 2022-09-23 No Data Available No Data Availa [...] (do not use for phone, instead use 13924-11) [id number] 2023-11-28 No Data Available No Data Availa [...] 95 for video, modifier 93 for phone [id number] 2024-08-31 No Data Available No Data Availa [...]
== END 2025-01-05 11:09 | disposition home or self-care (01) ==
LOC: HO.HUSH 10:21
PROVIDERS: PCP Internal Medicine; Visit Provider Nurse Practitioner Family
DX: N20.0 Calculus of kidney (principal); N28.1 Cyst of kidney, acquired; N39.0 Urinary tract infection, site not specified
CPT/HCPCS: 99213; G2211

== ENCOUNTER → 2025-01-05 10:20 | Outpatient (BNVA) | payer OTHER, SELFPAY | PROVIDERS: PCP Internal Medicine; Visit Provider Nurse Practitioner Family | DX: N20.0 Calculus of kidney (principal); N28.1 Cyst of kidney, acquired | CPT/HCPCS: 81003; 99212 ==

== ENCOUNTER 2025-01-18 08:05 | Day surgery (SDC) | payer OTHER, SELFPAY ==
--- OUTSIDE RECORDS SUMMARY | 2025-01-11 18:00 | XMS_ITS ---
Author Name Gail CORONARY CARE UNIT NURSE,GRAIN ELEVATOR OPERATOR,FN P,LEATHER CARVER, Sarah Address [address] [place] [address] Phone [phone] [facility] Care Team Providers Care Furniture Assembler And Installer Name Role Phone Sarah Reynolds Unavailable [phone] HUSEYIN MELL GANDHI Unavailable [phone] Reason for Referral Not Available Allergies, adverse [...] 100 mg Tab take 2 tablet by [facility] daily 2021-10-09 No Data Available [facility] [...] FOR 7 DAYS 2022-03-29 No Data Available Bbkdatyk-Klcglxcuy-IP 3.5-64703-3 Suspension SHAKE LIQUID AND INSTILL 4 DROPPERFUL [...] joint pain increased [facility]. Follow-up with Blade [...] of Service Diagnosis/Co mplaint No Data Available [facility] [place] Gastritis, unspecified, with out bleeding Pain Assessment - Pain Documented on a Pain Scale (1125F) [facility] [place] Pain Assessment - Pain Documented on a Pain Scale (1125F) [facility] [place] Pain Assessment - Pain Documented on a Pain Scale (1125F) [facility] [place] Pain Assessment - Pain Documented on a Pain Scale (1125F) [facility] [place] Pain Assessment - Pain Documented on a Pain Scale (1125F) [facility] [place] Pain Assessment - Pain Documented on a Pain Scale (1125F) [facility] [place] Pain Assessment - Pain Documented on a Pain Scale (1125F) [facility] [place] Pain Assessment - Pain Documented on a Pain Scale (1125F) [facility] [place] Pain Assessment - Pain Documented on a Pain Scale (1125F) [facility] [place] Chronic obstructive pulmonar y [...] (do not use for phone, instead use 30937-48) [facility] [place] Chronic obstructive pulmonar y [...] (do not use for phone, instead use 47185-26) [facility], ([place]) 09/23/2022 Estab. patient 30-39min; chronic exacerbation, 2 stable chronic or 1 acute illness add add modifier 95 for video, (do not use for phone, instead use 61880-14) [facility] [place] Estab. patient 30-39min; chronic exacerbation, 2 stable chronic or 1 acute illness add add modifier 95 for video, (do not use for phone, instead use 70570-91) [facility] [place] 09[place]20[place] Estab. patient 30-39min; chronic exacerbation, 2 stable chronic or 1 acute illness add add modifier 95 for video, (do not use for phone, instead use 14519-28) [facility] [place] 09[place]20[place] Estab. patient 30-39min; chronic exacerbation, 2 stable chronic or 1 acute illness add add modifier 95 for video, (do not use for phone, instead use 54799-98) [facility] [place] 09[place]23[place]20[place] Estab. patient 30-39min; chronic exacerbation, 2 stable chronic or 1 acute illness add add modifier 95 for video, (do not use for phone, instead use 16166-28) [facility] [place] 09[place]23[place]20[place] Estab. patient 30-39min; chronic exacerbation, 2 stable chronic or 1 acute illness add add modifier 95 for video, (do not use for phone, instead use 36034-60) [facility] [place] 09[place]23[place]20[place] Estab. patient 30-39min; chronic exacerbation, 2 stable chronic or 1 acute illness add add modifier 95 for video, (do not use for phone, instead use 61642-52) [facility] [place] 09[place]23/20[place] Estab. patient 30-39min; chronic exacerbation, 2 stable chronic or 1 acute illness add add modifier 95 for video, (do not use for phone, instead use 42326-43) [facility] ([place] 11/28/2023 Morbid (severe) obesity due to excess [...] (do not use for phone, instead use 38243-05) [facility] [place] 11[place]28/2023 Estab. patient 30-39min; chronic exacerbation, 2 stable chronic or 1 acute illness add add modifier 95 for video, (do not use for phone, instead use 30887-90) [facility] [place] 11/28/2023 Estab. patient 30-39min; chronic exacerbation, 2 stable chronic or 1 acute illness add add modifier 95 for video, (do not use for phone, instead use 55099-64) [facility] [place] 11/28/2023 Estab. patient 30-39min; chronic exacerbation, 2 stable chronic or 1 acute illness add add modifier 95 for video, (do not use for phone, instead use 05947-29) [facility] [place] 11[place]28/2023 Estab. patient 30-39min; chronic exacerbation, 2 stable chronic or 1 acute illness add add modifier 95 for video, (do not use for phone, instead use 02304-28) [facility] [place] 11/28/2023 Estab. patient 30-39min; chronic exacerbation, 2 stable chronic or 1 acute illness add add modifier 95 for video, (do not use for phone, instead use 15630-97) [facility] [place] 11/28/2023 Estab. patient 30-39min; chronic exacerbation, 2 stable chronic or 1 acute illness add add modifier 95 for video, (do not use for phone, instead use 66851-44) [facility] [place] 11/28/2023 Estab. patient 30-39min; chronic exacerbation, 2 stable chronic or 1 acute illness add add modifier 95 for video, (do not use for phone, instead use 75717-03) [facility] [place] 11/28/2023 Estab. patient 20-29min; 1 stable chronic or 2 minor; add add modifier 95 for video, modifier 93 for phone [facility], ([place] 08/31/2024 Morbid (severe) obesity due to excess caloriesSevere persistent asthma, uncomplicatedChronic obstructive pulmonary disease, unspecifiedMajor depressive disorder, recurrent, moderateUnspecified dementia without behavioral disturbanceHyperlipidemia, unspecifiedNeuralgia and neuritis, unspecifiedEssential (primary) hypertensionOther problems related to medical facilities and other health carePersonal history of malignant neoplasm of breast Estab. patient 20-29min; 1 stable chronic or 2 minor; add add modifier 95 for video, modifier 93 for phone [facility], ([place] 08/31/2024 Estab. patient 20-29min; 1 stable chronic or 2 minor; add add modifier 95 for video, modifier 93 for phone [facility], ([place] 08/31/2024 Estab. patient 20-29min; 1 stable chronic or 2 minor; add add modifier 95 for video, modifier 93 for phone [facility], ([place] 08/31/2024 Estab. patient 20-29min; 1 stable chronic or 2 minor; add add modifier 95 for video, modifier 93 for phone [facility], ([place] 08/31/2024 Estab. patient 20-29min; 1 stable chronic or 2 minor; add add modifier 95 for video, modifier 93 for phone [facility], ([place] 08/31/2024 Estab. patient 20-29min; 1 stable chronic or 2 minor; add add modifier 95 for video, modifier 93 for phone [facility], ([place] 08/31/2024 Estab. patient 20-29min; 1 stable chronic or 2 minor; add add modifier 95 for video, modifier 93 for phone [facility], ([place] 08/31/2024 Vital Signs Date of Collection Vitals [...] tive Time Current Smoking Status Never smoker 2025-01-02 0 Sex Female History of Procedures Procedures Service Procedure code Service date Servicing provider Phone# No Data Available [id number] 2022-05-20 No Data Available No Data Available [...] (do not use for phone, instead use 22657-09) [id number] 2022-05-23 No Data Available No Data Availa ble Estab. patient 30-39min; chronic exacerbation, 2 stable chronic or 1 acute illness add add modifier 95 for video, (do not use for phone, instead use 81081-24) [id number] 2022-09-23 No Data Available No Data Availa [...] (do not use for phone, instead use 27075-66) [id number] 2023-11-28 No Data Available No Data Availa [...] 95 for video, modifier 93 for phone [id number] 2024-08-31 No Data Available No Data Availa [...]
[2025-01-14 15:31] VITALS: BMI 40.2
[2025-01-14 15:49] VITALS: BMI 39.7
--- NOTE | 2025-01-17 13:04 | HO.ANESPROP2 ---
Documented by User: Chloe Young NP 01/17/25 13:06 HPI - Anesthesia Eval Consult details Narrative: 79yo F for Colonoscopy PMFSH Active Problems Active Problems: All Active Problems Renal cyst (Acute) Cognitive decline (Acute) Hypomagnesemia (Acute) Primary osteoarthritis of right knee (Acute) Dyslipidemia (Acute) Class 2 obesity with body mass index (BMI) of 38.0 to 38.9 in adult (Acute) Tubular adenoma of colon (Acute) Right hip pain (Acute) Left hip pain (Acute) Dementia (Acute) Lightheadedness (Acute) Multinodular goiter (Acute) Bunion, left foot (Acute) Memory loss (Acute) Insomnia (Acute) Osteoarthritis (Acute) Constipation (Acute) Cataract (Acute) Preoperative examination (Acute) Cardiac murmur (Acute) Left leg cellulitis (Acute) Left flank pain (Acute) Leg wound, left (Acute) Phlebitis of left leg (Acute) Shoulder pain, left (Acute) Left serous otitis media (Acute) Varicose veins of left lower extremity with inflammation (Acute) Physical exam (Acute) Left otitis media (Acute) Varicose veins of right lower extremity with inflammation (Acute) Osteoarthritis of right knee (Acute) UTI (urinary tract infection) (Acute) Weight loss (Acute) Neck pain (Acute) Osteoarthritis of right knee (Acute) Right knee pain (Acute) History of colon polyps (Acute) Diverticulosis (Acute) UTI (urinary tract infection) (Acute) Hypovitaminosis D (Acute) Depression (Acute) Obesity (BMI 30-39.9) (Acute) Vitamin D deficiency (Acute) Migraine (Acute) GERD without esophagitis (Acute) Anemia (Acute) Asthma (Acute) Pure hypercholesterolemia (Acute) Venous (peripheral) insufficiency (Acute) Complex renal cyst (Acute) Mild major depression (Acute) Renal calculi (Acute) Dyslipidemia (Acute) Tremor of left hand (Acute) Non-toxic multinodular goiter (Acute) Lumbar degenerative disc disease (Acute) Insomnia (Acute) Constipation due to opioid therapy (Acute) Essential hypertension (Acute) Past Medical History Medical History Chronic ulcer of leg, limited to breakdown of skin Dementia Multinodular goiter HX: breast cancer Thyroid disease Depression Obesity (BMI 30-39.9) Vitamin D deficiency Migraine GERD without esophagitis Anemia Asthma Pure hypercholesterolemia Environmental allergies Venous (peripheral) insufficiency Complex renal cyst Morbid obesity with BMI of 40.0-44.9, adult Gall stones Mild major depression Dyslipidemia Tremor of left hand Invasive ductal carcinoma of left breast Non-toxic multinodular goiter Lumbar degenerative disc disease Renal calculi Insomnia Constipation due to opioid therapy Essential hypertension Family History Family History Father Medical history unknown Mother Lung cancer Colon cancer Family history of problems with anesthesia: No Surgical History Surgical History History of left cataract surgery Hx of varicose vein stripping Hx of cystoscopy Hx of biopsy H/O colonoscopy Hx of dilation and curettage History of esophagogastroduodenoscopy (EGD) Hx of hand surgery History of lumpectomy of left breast History of lithotripsy History of left knee replacement History of section History of Problems with Anesthesia: No Social History Social History Household Members: None Household Members Other:: daughter Noa Housing: Apartment Are you a primary career and guidance counselor to a significant other at home: No Do you presently have visiting nurse or other home services: Yes (daughter [employer] SAW OPERATOR 24/7) Alcohol intake: never Patient Tobacco Use Status: Never used Tobacco e-Cigarette/Vaping Use: Never Used Second Hand Smoke Exposure: No Use of substances other than those prescribed or required for medical reasons: No Are you DNR?: No Advance Directives: Yes Advance Directives Information Provided: No Advance Directives on File: Yes Advance Directives Date on File: 11/12/17 Poor oral hygiene: Yes (full dentures) service: No 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al status: unemployed and disabled 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 Cognitive needs: Yes (cane, walker) Hearing needs: No Vision needs: Yes Meds Allergies Allergy/AdvReac Type Severity Reaction Status Date / Time cat dander [CAT DANDER] Allergy Intermediate skin rash Verified 01/05/25 10:52 mite-Dermatophagoides Allergy Intermediate watery Verified 01/05/25 10:52 farinae, skyla itchy [DUST MITES] eyes, sneezing Home Medications ?Medication ?Instructions ?Recorded ?Confirmed ?Last Taken ?Type acetaminophen 325 mg tablet 325 mg PO BID PRN Pain 05/22/20 01/14/25 Unknown History (Tylenol) nszkiuqbmxij-[id number]-oeompb tablet 1 tab PO DAILY 05/22/20 01/14/25 Unknown History omega-3 fatty acids 1,000 mg 1,000 mg PO DAILY 05/22/20 01/14/25 Unknown History capsule trazodone 150 mg tablet 150 mg PO BEDTIME 05/22/20 01/14/25 Unknown History epinephrine 0.3 mg/0.3 mL 0.3 ml IM DAILY PRN Allergic 07/17/21 01/14/25 Unknown History injection, auto-injector Reaction mometasone 0.1 % topical cream 1 appl topical DAILY PRN Rash 07/17/21 01/14/25 Unknown History sertraline 100 mg tablet 200 mg PO DAILY 10/18/22 01/14/25 06/23/23 History 200 mg olopatadine 0.1 % eye drops 1 drp ophthalmic (eye) DAILY 06/17/23 01/14/25 Unknown History cetirizine 10 mg tablet 10 mg PO DAILY 09/27/24 01/14/25 Unknown History Exam Height,Weight and Vital Signs: Height 5 ft 2 in Weight 98.43 kg Pertinent Lab Results Pertinent Lab Results: Laboratory Tests 07/07/24 10:28 WBC 5.6 Hgb 11.6 L Hct 36.3 L Plt Count 152 L Sodium 142 Potassium 3.9 Chloride 105 Carbon Dioxide 29 BUN 16 Creatinine 0.87 Narrative Narrative: EKG 09/2023 Vent. Rate : 062 BPM Atrial Rate : 062 BPM P-R Int : 234 ms QRS Dur : 078 ms QT Int : 402 ms P-R-T Axes : 073 032 028 degrees QTc Int : 408 ms Sinus rhythm with marked sinus arrhythmia with 1st degree A-V block Otherwise normal ECG When compared with ECG of 09-JUL-2017 11:57, Nonspecific T wave abnormality no longer evident in Anterolateral leads QT has shortened ECHO 2022 Conclusions: - The left ventricular systolic function is normal. The calculated ejection fraction is 68% by biplane method. - The basal inferior segment is hypokinetic. - No obvious valvular pathology seen on this study. - There is mild dilatation of the ascending aorta measuring 4.40 cm. Assessment and Plan Assessment Anesthesia Assessment: Chart Reviewed Final Anesthetic Review Family History of Problems with Anesthesia: No History of Problems with Anesthesia: No Documented by User: Neville Ellis MD 01/18/25 10:22 [facility] Past Medical History Medical History Chronic ulcer of leg, limited to breakdown of skin Dementia Multinodular goiter HX: breast cancer Thyroid disease Depression Obesity (BMI 30-39.9) Vitamin D deficiency Migraine GERD without esophagitis Anemia Asthma Pure hypercholesterolemia Environmental allergies Venous (peripheral) insufficiency Complex renal cyst Morbid obesity with BMI of 40.0-44.9, adult Gall stones Mild major depression Dyslipidemia Tremor of left hand Invasive ductal carcinoma of left breast Non-toxic multinodular goiter Lumbar degenerative disc disease Renal calculi Insomnia Constipation due to opioid therapy Essential hypertension Family History Family History Father Medical history unknown Mother Lung cancer Colon cancer Surgical History Surgical History History of left cataract surgery Hx of varicose vein stripping Hx of cystoscopy Hx of biopsy H/O colonoscopy Hx of dilation and curettage History of esophagogastroduodenoscopy (EGD) Hx of hand surgery History of lumpectomy of left breast History of lithotripsy History of left knee replacement History of section Social History Social History Household Members: None Household Members Other:: daughter Noa Housing: Apartment Are you a primary career and guidance counselor to a significant other at home: No Do you presently have visiting nurse or other home services: Yes (daughter [employer] SAW OPERATOR 24/7) Alcohol intake: never Patient Tobacco Use Status: Never used Tobacco e-Cigarette/Vaping Use: Never Used Second Hand Smoke Exposure: No Use of substances other than those prescribed or required for medical reasons: No Are you DNR?: No Advance Directives: Yes Advance Directives Information Provided: No Advance Directives on File: Yes Advance Directives Date on File: 11/12/17 Poor oral hygiene: Yes (full dentures) service: No 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al status: unemployed and disabled 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 Cognitive needs: Yes (cane, walker) Hearing needs: No Vision needs: Yes Meds Allergies Allergy/AdvReac Type Severity Reaction Status Date / Time cat dander [CAT DANDER] Allergy Intermediate skin rash Verified 01/05/25 10:52 mite-Dermatophagoides Allergy Intermediate watery Verified 01/05/25 10:52 farinae, skyla itchy [DUST MITES] eyes, sneezing Home Medications ?Medication ?Instructions ?Recorded ?Confirmed ?Last Taken ?Type acetaminophen 325 mg tablet 325 mg PO BID PRN Pain 05/22/20 01/14/25 Unknown History (Tylenol) igygmpafpijj-arjkgtpd-pvnhub tablet 1 tab PO DAILY 05/22/20 01/14/25 Unknown History omega-3 fatty acids 1,000 mg 1,000 mg PO DAILY 05/22/20 01/14/25 Unknown History capsule trazodone 150 mg tablet 150 mg PO BEDTIME 05/22/20 01/14/25 Unknown History epinephrine 0.3 mg/0.3 mL 0.3 ml IM DAILY PRN Allergic 07/17/21 01/14/25 Unknown History injection, auto-injector Reaction mometasone 0.1 % topical cream 1 appl topical DAILY PRN Rash 07/17/21 01/14/25 Unknown History sertraline 100 mg tablet 200 mg PO DAILY 10/18/22 01/14/25 06/23/23 History 200 mg olopatadine 0.1 % eye drops 1 drp ophthalmic (eye) DAILY 06/17/23 01/14/25 Unknown History cetirizine 10 mg tablet 10 mg PO DAILY 09/27/24 01/14/25 Unknown History Exam Airway Mallampati Class: III TM Dist: >3cm Neck ROM: Full Assessment and Plan Assessment Anesthesia Assessment: Anesthesia Plan Discussed Final Anesthetic Review NPO: Yes ASA Class: III Final Preanesthetic Review: No Changes in Pt Med Stat, Meds/Allgs Chart Reviewed, Consent Obtained/Reviewed and Anes Risks/Benef Reviewed Patient Risk: Intermediate Procedure Risk: Low Anesthetic Plan Anesthetic Plan: TIVA Disposition: Standard PACU
--- NOTE | 2025-01-18 08:15 | PC.NURSE ---
while bringing in patient daughter stated patient is able to sign for herself even though she has dementia as long as we use an intepreter and speak slowly. patient didnt know her birthdate or what she was here for a procedure. called daughter back and no answer.
--- NOTE | 2025-01-18 08:33 | P.HPSUR_ITS ---
Pre-Procedural Eval Section A - 24 Hr Update-Section A only Date of Service: 01/18/25 Section B - Complete if H&P > 30 days Chief Complaint: screening Relevant Family History (Specify if Yes): No Relevant Social History: None Present Medications: see Short Stay Collaborative assessment Medical History: Significant History (Dementia Multinodular goiter HX: breast cancer Thyroid disease Depression Obesity (BMI 30-39.9) Vitamin D deficiency Migraine GERD without esophagitis Anemia Asthma Pure hypercholesterolemia Environmental allergies Venous (peripheral) insufficiency Complex renal cyst Morbid obesity with BMI of 40.0-) History of Previous Operations: Relevant previous surgery/procedure and date(s) ( History of left cataract surgery Hx of varicose vein stripping Hx of cys toscopy Hx of biopsy H/O colonoscopy Hx of dilation and curettage History of esophagogastroduodenoscopy (EGD) Hx of hand surgery History of lumpectomy of left breast History of lithotripsy History of left knee replacement Histo) Allergies: Allergies Allergy/AdvReac Type Severity Reaction Status Date / Time cat dander [CAT DANDER] Allergy Intermediate skin rash Verified 01/05/25 10:52 mite-Dermatophagoides Allergy Intermediate watery Verified 01/05/25 10:52 farinae, skyla itchy [DUST MITES] eyes, sneezing Review of Systems Sugical H&P ROS: Negative: Constitution, Cardiovascular, Respiratory, Neurological, Psychiatric, Hem-Onc, Allergic/Immunologic, Gastrointestinal, Genitourinary, Musculoskeletal, Integumentary, Endocrine and Eyes/Ears/Nose/Throat Exam Surgical H&P Exam: Normal: HEENT, Normal: Heart, Normal: Lungs, Normal: Extremities, Normal: Abdomen, Normal: Skin and Normal: Neurological Plan Diagnosis/Plan: Unchanged I have reviewed the history and physical and performed a pertinent physical examination on my patient. No changes have occurred unless specified. Time Spent With Patient Time: Total time managing care of this patient today ____ minutes.
[2025-01-18] MEDS: Lactated Ringers 1,000 ML 100 ML IVCONT (08:35)
--- NOTE | 2025-01-18 09:23 | PC.NURSE ---
called multiple times to get a hold of the daughter for consent. tried another number with no answer. left two voicemails.
--- NOTE | 2025-01-18 10:49 | HO.OPN-COLON ---
Colonoscopy Operative Note Operative Note Date of Service: 01/18/25 Narrative: Operative Information Procedure Description: Colonoscopy Indication: screening Anesthesia: MAC COLONOSCOPY Instrument: Olympus variable stiffness pediatric scope 190L Colonoscopy Monitoring: Vital signs and clinical assessment, continuous EKG monitoring, Pulse oximetry, Carbon Dioxide monitoring and blood pressure monitoring were done throughout the procedure. Colon withdrawal time was 20 minutes. Procedure: The patient was placed in the left lateral decubitis position and pre-procedure medications were administered. After a digital rectal examination of the ano-rectum, the video colonoscope was inserted into the rectum and advanced through the colon to the cecum/TI. The colonoscope was slowly withdrawn in a retrograde panoramic fashion and the colon mucosa was carefully examined including a retroflexed view of the rectum. Findings and interventions are described below. Procedure Difficulty: moderate, pressure applied Findings: Terminal Ileum- superficially intubated -normal Cecum:normal Ascending Colon: x 1 sessile polyp 5-6 mm removed with cold forceps Transverse Colon - x 1 sessile polyp 6-8 mm removed with cold snare Descending Colon: x 2 sessile polyps 6-9 mm removed with cold snare, severe diverticulosis Sigmoid Colon: severe diverticulosis with luminal narrowing, x 1 sessile polyp 5-7 mm removed with cold snare Rectum: Retroflexion with small internal hemorrhoids seen, grade I Anorectum - normal Intervention: cold snare, cold forceps Colon preparation: [place]ridge Bowel Preparation Scale Right colon; 2 Transverse colon: 2 Left colon; 2 (0 = Unprepared colon segment with mucosa not seen due to solid stool that cannot be cleared. 1 = Portion of mucosa of the colon segment seen, but other areas of the colon segment not well seen due to staining, residual stool and/or opaque liquid. 2 = Minor amount of residual staining, small fragments of stool and/or opaque liquid, but mucosa of colon segment seen well. 3 = Entire mucosa of colon segment seen well with no residual staining, small fragments of stool or opaque liquid) Impression and Post Procedure Diagnosis: diverticulosis colon polyps x 5 internal hemorrhoids Plan: High fiber diet leaflet Avoid straining at stool, epsom salts and sitz bath, anusol supps or cream Repeat Colonoscopy in 2-3 years due to polyps if health allows or earlier if clinically indicated Above findings were reviewed with the patient and relevant handouts were provided if indicated.
[2025-01-18 10:55] VITALS: BP 101/58; PULSE 63; RESP 16; TEMP 36.6; O2SAT 98
[2025-01-18 11:10] VITALS: BP 132/76; PULSE 67; RESP 16; TEMP 36.6; O2SAT 97
== END 2025-01-18 11:38 | disposition home or self-care (01) ==
PROVIDERS: PCP Internal Medicine; Visit Provider Internal Medicine Gastroenterology
PROC: 0DJD8ZZ Inspection of Lower Intestinal Tract, Via Natural or Artificial Opening Endoscopic (ICD-10-PCS; CPT 45378; principal; 2025-01-18 09:10)
DX: Z12.11 Encounter for screening for malignant neoplasm of colon (principal); Z86.0101 Personal history of adenomatous and serrated colon polyps; D12.3 Benign neoplasm of transverse colon; D12.2 Benign neoplasm of ascending colon; D12.4 Benign neoplasm of descending colon; D12.5 Benign neoplasm of sigmoid colon; K57.30 Diverticulosis of large intestine without perforation or abscess without bleeding; K64.0 First degree hemorrhoids; K21.9 Gastro-esophageal reflux disease without esophagitis; F03.90 Unspecified dementia, unspecified severity, without behavioral disturbance, psychotic disturbance, mood disturbance, and anxiety; Z85.3 Personal history of malignant neoplasm of breast; D64.9 Anemia, unspecified; E04.2 Nontoxic multinodular goiter; I87.2 Venous insufficiency (chronic) (peripheral); J45.909 Unspecified asthma, uncomplicated; G43.909 Migraine, unspecified, not intractable, without status migrainosus; E55.9 Vitamin D deficiency, unspecified; F32.A Depression, unspecified; E78.00 Pure hypercholesterolemia, unspecified; N28.1 Cyst of kidney, acquired; E66.01 Morbid (severe) obesity due to excess calories; Z68.39 Body mass index [BMI] 39.0-39.9, adult; Z79.899 Other long term (current) drug therapy; Z98.890 Other specified postprocedural states
CPT/HCPCS: 45385; 45380; 88305; J2003; J2704

== ENCOUNTER → 2025-01-18 08:05 | Outpatient (BNV) | payer OTHER, SELFPAY | PROVIDERS: PCP Internal Medicine; Visit Provider Internal Medicine Gastroenterology | DX: Z12.11 Encounter for screening for malignant neoplasm of colon (principal); D12.2 Benign neoplasm of ascending colon; K57.90 Diverticulosis of intestine, part unspecified, without perforation or abscess without bleeding; K64.0 First degree hemorrhoids; D12.3 Benign neoplasm of transverse colon; D12.4 Benign neoplasm of descending colon; D12.5 Benign neoplasm of sigmoid colon | CPT/HCPCS: 45380; 45385 ==

== ENCOUNTER → 2025-02-24 07:46 | Outpatient (REF) | payer OTHER, SELFPAY ==
--- OUTSIDE RECORDS SUMMARY | 2025-02-24 07:48 | XMS_ITS | Clinical Summary ---
Author Organization [employer] Address [address] [place] [address] Care Team Providers Care Hoop Maker Helper Machine Name Role Phone Unavailable Primary Care Provider [...] Date Diagnosed Date High blood pressure 11/24/2024 Social History Tobacco Use Types Packs/Day Years [...] Tdap) 07/08/2024 07/07/2024 COVID-19 Vaccine (4 - season) 2024 04/23/2024, 10/04/2020, 09/02/2020 Influenza Vaccine (#1) 2025 , 05/08/2023, 08/20/2022, Additional history exists Tobacco Screening 09/30/2025 09/30/2024 HIB Vaccines Aged Out No longer eligi [...] Health Maintenance Insurance DENTAL - [facility]
--- OUTSIDE RECORDS SUMMARY | 2025-02-24 07:48 | XMS_ITS | Patient Health Record ---
[facility] Organization [facility] Address [address] [place] [address] Care Team Providers Care Cardiac Technician Name Role Phone Nichole HERMAN, Kathy Primary Care Provider Unavail able Allergies Allergen (clinical drug ingredient) Drug/Non Drug Allergy documented on EMR Reaction Allergy Type Onset Date Status ibuprofen Advil thin blood Drug Allergy Active Aleve thin blood Drug Allergy Active morphine Morphine Sulfate vomiting Drug Allergy Active Motrin thin blood Drug Allergy Active Reason For Referral No Information Medications Medication SIG (Take, Route, Frequency, Duration) Notes Start Date End Date Status oxyCODONE HCl 5 MG 1 capsule as needed Orally every 6 hrs Active Vitamin B6 50 MG Orally Not -Taking Sertraline HCl 25 MG 1 tablet Orally Onc e a day; Duration: 30 day(s) Active Vitamin B12 100 MCG Orally Not-Taking Omeprazole 20 MG 1 capsule 30 minutes before morning meal Orally Once a day; Duration: 30 day(s) Active Sumatriptan &Capsaicin-Menthol Active Protonix 40 MG Orally Not-T aking Vitamin D Active Doculase Active Ketotifen Fumarate 0.025 % 1 drop into affected eye Ophthalmic Twice a day Active Lasix Active Loratadine 10 MG 1 tablet Orally Once a day; Duration: 30 day(s) Active Losartan Potassium 25 MG 1 tablet Orally Once a day; Duration: 30 day(s) Active amLODIPine Besylate 5 MG 1 tablet Orally Once a day; Duration: 30 day(s) Active Pravastatin Sodium 40 MG 1 tablet Orally Once a day; Duration: 30 day(s) Active Gabapentin 300 MG 1 capsule Orally Onc e a day; Duration: 30 day(s) Active Dulera 100-5 MCG/ACT 2 puffs Inhalation Twice a day Active Letrozole 2.5 MG 1 tablet Orally Once a day; Duration: 30 day(s) Active Centrum Silver Activ e Bisacodyl 5 MG 1 tablet as needed Orally Once a day; Duration: 30 day(s) Active traZODone HCl 100 MG 1 tablet at bedtime Orally Once a day; Duration: 30 day(s) Active Aspir-81 Active [place] 3 1000 MG 1 capsule Orally Onc e a day; Duration: 30 day(s) Active Tylenol 325 MG 1 tablet as needed Orally every 4 hrs Active Social History Tobacco Use: Social History Observation Description Date Details (start date - stop date) Never Smoker NA - NA Tobacco Use/Smoking Question Answer Notes Are you a: nonsmoker Additional Findings: Tobacco Non-User Current no n-smoker Alcohol Screen Question Answer Notes Did you have a drink containing alcohol in the p ast year? No Points 0 Interpretation Negative Tobacco use other than smoking: Question Answer Notes Are you an other tobacco user? No Problems Problem Type SNOMED Code ICD Code Onset Dates Problem Status W/U Status Risk Notes Problem Acquired hallux valgus (57399639) Acquired hallux interphalangeus of left foot (M20.12) Active confirmed Plan Of Treatment Pending Test Test Name Order Date X ray : Foot, left 2V 08/30/2019 Insurance Providers Payer Name Payer Address Payer Phone Subscriber Number Group Number Insured Name Patient Relationship to Insured Coverage Start Date Coverage End Date [facility] [address] [address] [place] [address] [id number] DREWEstefany Lindsey Self - patient is the insured Medical (General) History Medical History History ICD Code Arthritis asthma Back,Hip,and Knee pain Cancer Depression Diverticulosis Gall bladder problems High blood pressure Osteoporosis thyroid Surgical History Surgery Date(Month/Year) knee replacement 2007 gall bladder 2001 breast cancer 2017
--- OUTSIDE RECORDS SUMMARY | 2025-02-24 07:48 | XMS_ITS ---
Author Name Gail GOLF CLUB FACER,PLANT ENGINEERING SUPERVISOR,FN P,WEIGHT AND BALANCE CONTROL AGENT, Sarah Address [address] [place] [address] Phone [phone] [facility] Care Team Providers Care Furnace Tender Name Role Phone Sarah Reynolds Unavailable [phone] HUSEYIN MELL GANDHI Unavailable [phone] Reason for Referral Not Available Allergies, adverse [...] 100 mg Tab take 2 tablet by [facility] daily 2021-10-09 No Data Available Spiriva HandiHaler [...] FOR 7 DAYS 2022-03-29 No Data Available Vlumgkeg-Hhlfrwhbc-EQ 3.5-86559-5 Suspension SHAKE LIQUID AND INSTILL 4 DROPPERFUL [...] Managed by PCP/NeuroReassure the person, Respect the person s personal space. Build quiet times into the day, along with activities Encounters Encounters Type Facility Date of Service Diagnosis/Co mplaint No Data Available [facility] [place]20[place] Gastritis, unspecified, with out bleeding Pain Assessment - Pain Documented on a Pain Scale (1125F) [facility] [place] Pain Assessment - Pain Documented on a Pain Scale (1125F) [facility] [place] Pain Assessment - Pain Documented on a Pain Scale (1125F) [facility] [place] Pain Assessment - Pain Documented on a Pain Scale (1125F) [facility] [place] Pain Assessment - Pain Documented on a Pain Scale (1125F) [facility] [place] Pain Assessment - Pain Documented on a Pain Scale (1125F) [facility] [place] Pain Assessment - Pain Documented on a Pain Scale (1125F) [facility] [place] Pain Assessment - Pain Documented on a Pain Scale (1125F) [facility] [place] Pain Assessment - Pain Documented on a Pain Scale (1125F) [facility] [place]20[place] Chronic obstructive pulmonar y [...] (do not use for phone, instead use 53604-28) [facility] [place] Chronic obstructive pulmonar y disease, [...] (do not use for phone, instead use 10563-98) [facility] [place] Estab. patient 30-39min; chronic exacerbation, 2 stable chronic or 1 acute illness add add modifier 95 for video, (do not use for phone, instead use 98343-60) [facility] [place] Estab. patient 30-39min; chronic exacerbation, 2 stable chronic or 1 acute illness add add modifier 95 for video, (do not use for phone, instead use 55123-39) [facility] [place] Estab. patient 30-39min; chronic exacerbation, 2 stable chronic or 1 acute illness add add modifier 95 for video, (do not use for phone, instead use 10922-73) [facility] [place] Estab. patient 30-39min; chronic exacerbation, 2 stable chronic or 1 acute illness add add modifier 95 for video, (do not use for phone, instead use 62824-92) [facility] [place] Estab. patient 30-39min; chronic exacerbation, 2 stable chronic or 1 acute illness add add modifier 95 for video, (do not use for phone, instead use 98887-86) [facility] [place] Estab. patient 30-39min; chronic exacerbation, 2 stable chronic or 1 acute illness add add modifier 95 for video, (do not use for phone, instead use 82866-98) [facility] [place] Estab. patient 30-39min; chronic exacerbation, 2 stable chronic or 1 acute illness add add modifier 95 for video, (do not use for phone, instead use 42611-25) [facility] [place] Estab. patient 30-39min; chronic exacerbation, 2 stable chronic or 1 acute illness add add modifier 95 for video, (do not use for phone, instead use 40859-25) [facility] ([place] 11/28/2023 Morbid (severe) obesity due to excess [...] (do not use for phone, instead use 99610-64) [facility] [place] Estab. patient 30-39min; chronic exacerbation, 2 stable chronic or 1 acute illness add add modifier 95 for video, (do not use for phone, instead use 50405-01) [facility] [place] Estab. patient 30-39min; chronic exacerbation, 2 stable chronic or 1 acute illness add add modifier 95 for video, (do not use for phone, instead use 84974-90) [facility] [place] Estab. patient 30-39min; chronic exacerbation, 2 stable chronic or 1 acute illness add add modifier 95 for video, (do not use for phone, instead use 41002-85) [facility] [place] Estab. patient 30-39min; chronic exacerbation, 2 stable chronic or 1 acute illness add add modifier 95 for video, (do not use for phone, instead use 28359-56) [facility] [place] Estab. patient 30-39min; chronic exacerbation, 2 stable chronic or 1 acute illness add add modifier 95 for video, (do not use for phone, instead use 18276-77) [facility] [place] Estab. patient 30-39min; chronic exacerbation, 2 stable chronic or 1 acute illness add add modifier 95 for video, (do not use for phone, instead use 40045-51) [facility] [place] Estab. patient 30-39min; chronic exacerbation, 2 stable chronic or 1 acute illness add add modifier 95 for video, (do not use for phone, instead use 57130-75) [facility] [place] Estab. patient 20-29min; 1 stable chronic or 2 minor; add add modifier 95 for video, modifier 93 for phone [facility] [place]20[place] Morbid (severe) obesity due to excess caloriesSevere persistent asthma, uncomplicatedChronic obstructive pulmonary disease, unspecifiedMajor depressive disorder, recurrent, moderateUnspecified dementia without behavioral disturbanceHyperlipidemia, unspecifiedNeuralgia and neuritis, unspecifiedEssential (primary) hypertensionOther problems related to medical facilities and other health carePersonal history of malignant neoplasm of breast Estab. patient 20-29min; 1 stable chronic or 2 minor; add add modifier 95 for video, modifier 93 for phone [facility] [place] Estab. patient 20-29min; 1 stable chronic or 2 minor; add add modifier 95 for video, modifier 93 for phone [facility] [place] 08[place] Estab. patient 20-29min; 1 stable chronic or 2 minor; add add modifier 95 for video, modifier 93 for phone [facility] [place] 08[place] Estab. patient 20-29min; 1 stable chronic or 2 minor; add add modifier 95 for video, modifier 93 for phone [facility] [place] 08[place] Estab. patient 20-29min; 1 stable chronic or 2 minor; add add modifier 95 for video, modifier 93 for phone [facility] [place] 08[place] Estab. patient 20-29min; 1 stable chronic or 2 minor; add add modifier 95 for video, modifier 93 for phone [facility] [place] 08[place] Estab. patient 20-29min; 1 stable chronic or 2 minor; add add modifier 95 for video, modifier 93 for phone [facility] [place] 08[place]/2024 Vital Signs Date of Collection Vitals [...] tive Time Current Smoking Status Never smoker 2025-02-02 4 Sex Female History of Procedures Procedures Service Procedure code Service date Servicing provider Phone# No Data Available [id number] 2022-05-20 No Data Available No Data Available [...] (do not use for phone, instead use 14046-93) [id number] 2022-05-23 No Data Available No Data Availa ble Estab. patient 30-39min; chronic exacerbation, 2 stable chronic or 1 acute illness add add modifier 95 for video, (do not use for phone, instead use 15180-32) [id number] 2022-09-23 No Data Available No Data Availa [...] (do not use for phone, instead use 41313-36) [id number] 2023-11-28 No Data Available No Data Availa [...] ble Advance care planning discussed and documented advance care plan or surrogate decision-maker was [...] 95 for video, modifier 93 for phone [id number] 2024-08-31 No Data Available No Data Availa [...] ble Advance care planning discussed and documented advance care plan or surrogate decision-maker was [...] 2022-05-20 10:27:36 Follow up plan for a gaurav symptoms:Gastritis 2022-05-23 07:11:36 Chronic obstructive pulmonary disease, [...] modifier 95)Continue to see PCP. Follow-up with [facility] as [...] modifier 95Advance care planning discussed and documented advance care plan or surrogate decision-maker was [...] [facility]. [facility] [...] record (1158F)Advance care planning discussed and documented advance care plan or surrogate decision-maker was [...] Managed by PCP/NeuroReassure the person, Respect the person s personal space. Build quiet times into [...]
== END ==
LOC: HO.SL 07:46
PROVIDERS: PCP Internal Medicine; Visit Provider Physician Assistant Medical
DX: Z13.89 Encounter for screening for other disorder (principal)

== ENCOUNTER 2025-04-12 10:54 | Outpatient (AMB) | payer OTHER, SELFPAY ==
[2025-04-12 11:01] VITALS: BP 100/60; PULSE 69; RESP 18; TEMP 36.2; O2SAT 95; BMI 39.9
--- NOTE | 2025-04-12 11:01 | A.OFFPC_ITS ---
Vital Signs 04/12/25 11:01 Height 5 ft 2 in Weight 218 lb BMI 39.9 BP 100/60 Blood Pressure Location Lt brachial Position Sitting Respiration 18 Pulse 69 Pulse Source Pulse Oximeter Temp 97.1 F Temp Source Temporal Artery Scan Pulse Oximetry (%) 95 Oxygen Delivery Method Room Air Intake Visit Reasons: bp - see comments Java Security Architect Required: No Accompanied by: Self / Same As Patient Allergies cat dander (CAT DANDER) Allergy (Intermediate, Verified 04/12/25 11:28) skin rash mite-Dermatophagoides farinae, skyla (DUST MITES) Allergy (Intermediate, Verified 04/12/25 11:28) watery itchy eyes, sneezing Medication List - Last Reconciled 04/12/25 by Kathy Bailon MD acetaminophen (Tylenol) 325 mg PO BID PRN albuterol sulfate 90 mcg/actuation 1 - 2 puffs PO Q4-6H PRN 30 days amlodipine 5 mg PO DAILY aspirin 81 mg PO DAILY 90 days atorvastatin 80 mg PO BEDTIME 90 days cetirizine 10 mg PO DAILY cholecalciferol (vitamin D3) 25 mcg PO DAILY epinephrine 0.3 mL IM DAILY PRN ferrous sulfate (Iron (ferrous sulfate)) 325 mg PO DAILY 30 days furosemide 40 mg PO DAILY 90 days losartan 100 mg PO DAILY 90 days magnesium citrate 296 mL PO ONCE memantine 10 mg PO BID 90 days MDD 20mg mometasone 0.1% 1 appl topical DAILY PRN kvsiehgstvxp-diidwghs-corvfm 1 tab PO DAILY nystatin 1 appl topical DAILY PRN 30 days olopatadine 0.1% 1 drp ophthalmic (eye) DAILY omega-3 fatty acids 1,000 mg PO DAILY omeprazole 20 mg PO DAILY 90 days oxycodone 5 mg PO BID 30 days polyethylene glycol 3350 17 grams PO DAILY 30 days sennosides (senna) 8.6 mg PO BEDTIME PRN 30 days sertraline 200 mg PO DAILY sumatriptan succinate 25 mg PO Q2-4H PRN 30 days trazodone 150 mg PO BEDTIME walker with wheels Tobacco use date assessed: 04/12/25 Fall risk assessment: No Falls in past year Last assessed Fall Risk: 04/12/25 Dental Screening Dental Screen Date: 04/12/25 Did you have a dental visit in the last 12 months?: Yes Did you have a dental problem in the last 6 months where you did not have access to dental care?: No Was dental information given to patient?: Patient has dentist HPI HPI Comments History of Present Illness Details The patient is an 79-year-old female presenting for follow-up of chronic conditions. She has a history of chronic back pain, for which she uses a cane and walker to assist with mobility and alleviate discomfort. Her medication regimen includes oxycodone for pain management. The patient has been diagnosed with allergic rhinitis, managed with cetirizine. She is allergic to cats and mites. Hypertension is controlled with amlodipine and losartan. Hyperlipidemia is managed with atorvastatin. The patient has a diagnosis of dementia and is under neurological care, with memantine prescribed for cognitive support. Osteopenia was identified on a recent bone densitometry, and she is advised to take calcium and vitamin D supplements. An echocardiogram in 2022 revealed ascending aortic dilation, necessitating a repeat study and referral to cardiology. The patient experiences depression, treated with sertraline, and has sleep disturbances managed with trazodone. She suffers from constipation, for which MiraLAX and senna are prescribed. Gastroesophageal reflux disease is managed with omeprazole. The patient also reports migraines, treated with sumatriptan. [facility] Medical History (Updated 04/12/25 @ 11:49 by Kathy Bailon MD) Dementia Multinodular goiter HX: breast cancer Thyroid disease Depression Obesity (BMI 30-39.9) Vitamin D deficiency Migraine GERD without esophagitis Anemia Asthma Pure hypercholesterolemia Environmental allergies Venous (peripheral) insufficiency Complex renal cyst Gall stones Mild major depression Dyslipidemia Tremor of left hand Invasive ductal carcinoma of left breast Non-toxic multinodular goiter Lumbar degenerative disc disease Renal calculi Insomnia Constipation due to opioid therapy Essential hypertension Surgical History History of left cataract surgery Hx of varicose vein stripping Hx of cystoscopy Hx of biopsy H/O colonoscopy Hx of dilation and curettage History of esophagogastroduodenoscopy (EGD) Hx of hand surgery History of lumpectomy of left breast History of lithotripsy History of left knee replacement History of section Family History Father Medical history unknown Mother Lung cancer Colon cancer Social History Household Members: None Household Members Other:: elliott Latham Housing: Apartment Are you a primary critical care specialist to a significant other at home: No Do you presently have visiting nurse or other home services: Yes (daughter CURING ROOM WORKER 24/7) Alcohol intake: never Patient Tobacco Use Status: Never used Tobacco e-Cigarette/Vaping Use: Never Used Second Hand Smoke Exposure: No Advance Directives Date on File: 11/12/17 service: No 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al status: unemployed and disabled 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 1. Little interest or pleasure in doing things: several days 2. Feeling down, depressed, or hopeless: several days Source: Developed by Drs. Vishal Gonsales, Dione Horn, Eduar Steel and colleagues, with an educational josé miguel from [employer]. Thrive Questionnaire Date Thrive assessed: 04/12/25 I am a: Patient What is your living situation today?: I have a steady place to live Within the past 12 months, did the food you bought not last and you didn't have the money to get more?: Never true Within the past 12 months, did you worry whether your food would run out before you got money to buy more?: Never true Do you have trouble paying for medicines?: No Do you have trouble getting transportation to medical appointments?: No Do you have trouble paying your heating and electricity bill?: No Do you have trouble taking care of your child, family member or friend?: No Do you have trouble with day-to-day activities such as bathing, preparing meals, shopping, managing finances, etc.?: Yes Are you interested in more education?: No Please select the resources that you would like help with: None Currently or been in a relationship where the following occur: No concerns reported THRIVE Score: 0 AUDIT C Alcohol Use Questionnaire (AUDIT-C) 1. How often do you have a drink containing alcohol?: Never Total Score: 0 Score Reviewed/Action Taken: No SHAMIR-7 AMB Questionnaire SHAMIR-7 Date SHAMIR - 7 assessed: 04/12/25 Feeling nervous, anxious, or on edge: 1 = Several days Not being able to stop or control worryin = Not at all Worrying too much about different things: 0 = Not at all Trouble relaxin = Not at all Being so restless that it is hard to sit still: 0 = Not at all Becoming easily annoyed or irritable: 0 = Not at all Feeling afraid as if something awful might happen: 0 = Not at all Total SHAMIR-7 score (0-4 normal; 5-9 mild; 10-14 moderate; 15-21 severe): 1 Source: Developed by Drs. Vishal Gonsales, Dione Horn, Eduar Steel and colleagues, with an educational josé miguel from [employer]. SHAMIR-7 Assessment Billing SHAMIR-7 Assessment Tool: SHAMIR-7 Assessment 50806 Review of Systems Const All systems reviewed & are unremarkable except as noted in HPI and below Card Denies chest pain at rest, Denies chest pain with activity, Denies edema, Denies irregular heart rhythm, Denies claudication, Denies dyspnea, Denies dyspnea on exertion, Denies orthopnea, Denies paroxysmal nocturnal dyspnea and Denies slow heart rate Resp Denies cough, Denies dyspnea and Denies dyspnea on exertion GI Denies abdominal pain, Denies change in bowel habits, Denies excessive flatus, Denies nausea and Denies vomiting Denies urinary incontinence, Denies urinary hesitancy and Denies urinary urgency Musc Denies atrophy, Denies deformity and Denies limited range of motion Skin/Breast Denies bleeding lesions, Denies changing lesions and Denies rash Physical exam (Primary Care) Vital Signs: Last Vital Signs Temp 97.1 F 04/12/25 11:01 Pulse 69 04/12/25 11:01 Resp 18 04/12/25 11:01 BP 100/60 04/12/25 11:01 Pulse Ox 95 04/12/25 11:01 Oxygen Delivery Method Room Air 04/12/25 11:01 BMI result Body Mass Index 39.9 BMI Assessment/Plan discussion: High BMI High, discussed plan: lifestyle, weight reduction, dietary and physical activity Tobacco/Smoking Status: Tobacco use Status Tobacco use date assessed 04/12/25 04/12/25 11:13 Patient Tobacco Use Status Never used Tobacco 04/12/25 11:13 e-Cigarette/Vaping Use Never Used 04/12/25 11:13 Thrive Assessment: Date of Thrive Assessment Date Thrive assessed 04/12/25 04/12/25 11:13 Currently or been in a relationship where the following occur: No concerns reported Const Limitations: ambulation with walker Resp Effort & Inspection: normal respiratory effort Auscultation: clear to auscultation bilaterally Cardio Jugular venous distension: no JVD Rate: regular rate Rhythm: regular rhythm Heart sounds: S1 normal heart sound present and S2 normal heart sound present Extrem General: Yes full ROM Coding Level of Care Code Est Pt Level 4 (06466) Complex EM visit Add On G2211 Diagnoses Ascending aorta dilatation I77.810 Mild major depression F32.0 Essential hypertension I10 Pure hypercholesterolemia E78.00 GERD without esophagitis K21.9 Moderate Alzheimer's dementia, unspecified timing of dementia onset, unspecified whether behavioral, psychotic, or mood disturbance or anxiety G30.9; F02.B0 Dementia type: Alzheimer's Alzheimer's disease onset: unspecified onset Dementia severity: moderate Dementia behavioral or psychological symptom: unspecified whether behavioral, psychotic, or mood disturbance or anxiety Additional Codes SHAMIR-7 Assessment Billing - SHAMIR-7 Assessment Tool: SHAMIR-7 Assessment 90405 ([id number]) Time Spent (min) 21 Assessment & Plan Assessment & Plan (1) Ascending aorta dilatation: Code(s): I77.810 - Thoracic aortic ectasia Category: Medical (2) Mild major depression: Code(s): F32.0 - Major depressive disorder, single episode, mild Category: Medical (3) Essential hypertension: Code(s): I10 - Essential (primary) hypertension Category: Medical (4) Pure hypercholesterolemia: Code(s): E78.00 - Pure hypercholesterolemia, unspecified Category: Medical (5) GERD without esophagitis: Code(s): K21.9 - Gastro-esophageal reflux disease without esophagitis Category: Medical (6) Dementia: Comment: Alzheimers vs Mixed Code(s): F03.90 - Unspecified dementia, unspecified severity, without behavioral disturbance, psychotic disturbance, mood disturbance, and anxiety Category: Medical Qualifiers: Dementia type: Alzheimer's Alzheimer's disease onset: unspecified onset Dementia severity: moderate Dementia behavioral or psychological symptom: unspecified whether behavioral, psychotic, or mood disturbance or anxiety Qualified Code(s): G30.9 - Alzheimer's disease, unspecified; F02.B0 - Dementia in other diseases classified elsewhere, moderate, without behavioral disturbance, psychotic disturbance, mood disturbance, and anxiety Plan Plan Patient was informed and verbally consented to the use of an ambient scribe for clinic note documentation during this visit. 1. Unspecified dementia, unspecified severity, without behavioral disturbance, psychotic disturbance, mood disturbance, and anxiety F03.90 HCC 52 The patient is under neurological care for dementia and is prescribed memantine to support cognitive function. 2. Other specified disorders of bone density and structure, unspecified site M85.80 Osteopenia is managed with calcium and vitamin D supplementation. 3. Thoracic aortic ectasia I77.810 HCC 108 A repeat echocardiogram is planned to monitor the ascending aortic dilation, and a referral to cardiology is made for further evaluation. 4. Depression, unspecified F32.A Depression is treated with sertraline, and sleep disturbances are managed with trazodone. 5. Gastro-esophageal reflux disease without esophagitis K21.9 Gastroesophageal reflux disease is managed with omeprazole. Orders: Orders CA echo transthoracic complete Today I77.810 - Thoracic aortic ectasia Referrals Cardiology Referral I77.810 - Thoracic aortic ectasia
--- OUTSIDE RECORDS SUMMARY | 2025-04-12 13:10 | XMS_ITS | Encounter Summary ---
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 Social History Tobacco Use Types Packs/Day Years Used Date Smoking Tobacco: Never Assessed Comments Unknown Sex and Gender Information Value Date Recorded Sex Assigned at Not on file Legal Sex Female 3:59 AM EST Gender Identity Not on file Sexual Orientation Not on file documented as of this encounter Plan of Treatment Not on file documented as of this encounter Procedures Procedure Name Priority Date/Time Associated Diagnosis Comments TISSUE EXAM Routine 03/30/2025 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 Jack at 9:25 on 04/06/25. 04/06/2025 9:29 AM EDT [facility] Clinical Information 4mm clean mass right lingual mandible (subperiostea l) ? mucocele 04/06/2025 9:29 AM EDT [facility] Gross Description A. Oral Cavity, 4mm mass right lingual mandible: Labeled with the patient's name and information. Received in formalin is a 0.5 cm intact ramirez-white smooth-walled cyst containing a clear watery fluid. The cyst wall is smooth and glistening. The cyst is partially surfaced by a pink-white glistening mucosa. The specimen is bisected, wrapped in paper, and entirely submitted in one cassette, two pieces. KRISTIAN 04/06/2025 9:29 AM EDT [facility] Disclaimer Unless otherwise specified, all tissue is 10% NB formalin fixed and paraffin embedded. 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
--- OUTSIDE RECORDS SUMMARY | 2025-04-12 13:10 | XMS_ITS | Clinical Summary ---
Author Organization [facility] Address [address] [place] [address] Phone Care Team Providers Care Performing Arts Technicians Name Role Phone Unavailable Primary Care Provider Unavailabl e Encounters Date Type Department Care Team Description 04/05/[address] 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 from Last 3 Months Social History Tobacco Use Types Packs/Day Years Used Date Smoking Tobacco: Never Assessed Comments Unknown Sex and Gender Information Value Date Recorded Sex Assigned at Not on file Legal Sex Female 3:59 AM EST Gender Identity Not on file Sexual Orientation Not on file Plan of Treatment Health Maintenance Due Date Last Done Comments DTaP,Tdap,and Td Vaccines (1 - Tdap) 12/22/1962 Pneumococcal Vaccine: 50+ Ye ars (1 of 1 - PCV) 12/22/1993 Zoster Vaccines (1 of 2) 12/22/1993 RSV Immunization Adult Patie nts (1 - 1-dose 75+ series) 12/22/2018 Depression Screening 08/04/2024 COVID-19 Vaccine (1 - 2023-2 5 season) 2025 Influenza Vaccine (#1) 2025 Falls Risk Assessment 04/05/2025 Medicare Annual Wellness Visit 04/05/2025 Osteoporosis Screening (Bone Density Screening) 04/05/2025 Social Influencers of Health Screening 04/05/2025 HIB Vaccines Aged Out No longer eligi [...] on patient's age to complete this topic MMR Vaccines Aged Out No longer eligi ble based on patient's age to complete this topic Meningococcal ACWY Vaccine Aged Out N o longer eligible based on patient's age to complete this topic Meningococcal B Vaccine Aged Out No l onger eligible based on patient's age to complete this topic RSV Immunization Patients Un bob 20 months Aged Out No longer eligible b ased on patient's age to complete this topic Varicella Vaccines Aged Out No longer eligible based on patient's age to complete this topic Procedures Procedure Name Priority Date/Time Associated Diagnosis Comments TISSUE EXAM Routine 03/30/2025 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 Jack at 9:25 on 04/06/25. 04/06/2025 9:29 AM [facility] Clinical Information 4mm clean mass right lingual mandible (subperiostea l) ? mucocele 04/06/2025 9:29 AM [facility] Gross Description A. Oral Cavity, [...] cassette, two pieces. KRISTIAN 04/06/2025 9:29 AM [facility] Disclaimer Unless otherwise specified, all tissue is 10% NB formalin fixed and paraffin embedded. 04/06/2025 9:29 AM [facility] Tissue Oral cavity structure / Unknown 03/30/2025 04/05/2025 7:27 AM EDT us Peter Jack DMD LAB PATHOLOGY ORDERABLES Michelle kendall Result [facility] ([facility]) [facility] [address] [place] [address], [place] [phone] from Last [address] [facility] MEDICARE MEDICAID - [place] [facility]
--- OUTSIDE RECORDS SUMMARY | 2025-04-12 13:10 | XMS_ITS | Encounter Summary ---
Author Organization [employer] Address [address] [place] [address] [address] [place] [address] Care Team Providers Care Kitchenhand Name Role Phone Unavailable Primary Care Provider Unavailabl e Encounter Details Date Type Department Care Team (Late st Contact Info) Description 04/07/2025 Orders Only [place] [address] [place] [address] Provider, MD Anushka Social History Tobacco Use Types Packs/Day Years [...] AM EDT documented as of this encounter Plan of Treatment Not on file documented as of this encounter Visit Diagnoses Not on filedocumented in this encounter
--- OUTSIDE RECORDS SUMMARY | 2025-04-12 13:10 | XMS_ITS | Patient Health Record ---
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 Plan Of Treatment Pending Test Test Name Order Date X ray : Foot, left 2V 08/30/2019 Insurance Providers Payer Name Payer Address Payer Phone Subscriber Number Group Number Insured Name Patient Relationship to Insured Coverage Start Date Coverage End Date [facility] [address] [address] [place] [address] [id number] DREWEstefany Lindsey Self - patient is the insured Medical (General) History Medical History History ICD Code Arthritis asthma Back,Hip,and Knee pain Cancer Depression Diverticulosis Gall bladder problems High blood pressure Osteoporosis thyroid Surgical History Surgery Date(Month/Year) knee replacement 2007 gall bladder 2001 breast cancer 2017
--- OUTSIDE RECORDS SUMMARY | 2025-04-12 13:10 | XMS_ITS ---
Author Name Reynolds BENCH GRINDER,METAL EXPEDITER,FN P,MANAGER BRAND, Sarah Address [address] [place] [address] Phone [phone] [facility] Care Team Providers Care Beef Cattle Farm Manager Name Role Phone Sarah Reynolds Unavailable [phone] MELL SMITH Unavailable [phone] Reason for Referral Not Available Allergies, adverse [...] mg Tab take 2 tablet by m outh daily 2021-10-09 No Data Available [facility]Haler [...] FOR 7 DAYS 2022-03-29 No Data Available [id number] Suspension SHAKE LIQUID AND INSTILL 4 DROPPERFUL [...] times into the day, along with activities Osteoarthritis, Gait instability, Requires daily assistance for activities of daily living (ADL) and comfort needs Active 2025-03-07 N/A Take tylenol as needed. Incorporate Vitamin D and calcium. Incorporate an anti-inflammatory diet. Dress warmly for weather. Stretch, stay active as tolerated, weight-bearing exercises, limit caffeine, maintain healthy weight. Fall prevention-use of assistive device. Continue follow up with PCP as scheduled.03/07/25:-daughter is MARINE ENGINEERING PROFESSOR and assists members with ADLs/iADLs-needs new shower chair- CSS task placed today-verified with CSS that raised toilet seat with side railing is considered a home modification and would need to go through leather case finisher/[facility] directly. SMS sent to member's daughter informing of this. Encounters Encounters Type Facility Date of Service Diagnosis/Co mplaint No Data Available [facility] [place]/2022 Gastritis, unspecified, with out bleeding Pain Assessment - Pain Documented on a Pain Scale (1125F) [facility] [place]2022 Pain Assessment - Pain Documented on a Pain Scale (1125F) [facility] [place]20[place] Pain Assessment - Pain Documented on a Pain Scale (1125F) [facility] [place]2022 Pain Assessment - Pain Documented on a Pain Scale (1125F) [facility] [place]2022 Pain Assessment - Pain Documented on a Pain Scale (1125F) [facility] [place] 05[place]/2022 Pain Assessment - Pain Documented on a Pain Scale (1125F) [facility] [place] 05[place]/2022 Pain Assessment - Pain Documented on a Pain Scale (1125F) [facility] [place] 05/23/2022 Pain Assessment - Pain Documented on a Pain Scale (1125F) [facility] [place] 05/23/2022 Pain Assessment - Pain Documented on a Pain Scale (1125F) [facility] [place]/23/2022 Chronic obstructive pulmonar y [...] (do not use for phone, instead use 92543-28) [facility] [place] Chronic obstructive pulmonar y disease, unspecifiedBody [...] (do not use for phone, instead use 59446-37) [facility] Estab. patient 30-39min; chronic exacerbation, 2 stable chronic or 1 acute illness add add modifier 95 for video, (do not use for phone, instead use 70655-18) [facility] Estab. patient 30-39min; chronic exacerbation, 2 stable chronic or 1 acute illness add add modifier 95 for video, (do not use for phone, instead use 54372-35) [facility] [place] Estab. patient 30-39min; chronic exacerbation, 2 stable chronic or 1 acute illness add add modifier 95 for video, (do not use for phone, instead use 28786-98) [facility] [place]20[place] Estab. patient 30-39min; chronic exacerbation, 2 stable chronic or 1 acute illness add add modifier 95 for video, (do not use for phone, instead use 52610-10) [facility] [place] Estab. patient 30-39min; chronic exacerbation, 2 stable chronic or 1 acute illness add add modifier 95 for video, (do not use for phone, instead use 55523-78) [facility] [place]20[place] Estab. patient 30-39min; chronic exacerbation, 2 stable chronic or 1 acute illness add add modifier 95 for video, (do not use for phone, instead use 05736-77) [facility] [place]20[place] Estab. patient 30-39min; chronic exacerbation, 2 stable chronic or 1 acute illness add add modifier 95 for video, (do not use for phone, instead use 77823-61) [facility] [place]20[place] Estab. patient 30-39min; chronic exacerbation, 2 stable chronic or 1 acute illness add add modifier 95 for video, (do not use for phone, instead use 47792-34) [facility] [place]/2023 Morbid (severe) obesity due to [...] (do not use for phone, instead use 29053-75) [facility]20[place] Estab. patient 30-39min; chronic exacerbation, 2 stable chronic or 1 acute illness add add modifier 95 for video, (do not use for phone, instead use 85221-81) [facility] [place]/2023 Estab. patient 30-39min; chronic exacerbation, 2 stable chronic or 1 acute illness add add modifier 95 for video, (do not use for phone, instead use 28284-51) [facility] [place]20[place] Estab. patient 30-39min; chronic exacerbation, 2 stable chronic or 1 acute illness add add modifier 95 for video, (do not use for phone, instead use 63979-69) [facility] [place]/2023 Estab. patient 30-39min; chronic exacerbation, 2 stable chronic or 1 acute illness add add modifier 95 for video, (do not use for phone, instead use 87865-04) [facility] [place] Estab. patient 30-39min; chronic exacerbation, 2 stable chronic or 1 acute illness add add modifier 95 for video, (do not use for phone, instead use 49698-23) [facility] [place]2023 Estab. patient 30-39min; chronic exacerbation, 2 stable chronic or 1 acute illness add add modifier 95 for video, (do not use for phone, instead use 99514-69) [facility] [place]/2023 Estab. patient 30-39min; chronic exacerbation, 2 stable chronic or 1 acute illness add add modifier 95 for video, (do not use for phone, instead use 43145-74) [facility] [place] Estab. patient 20-29min; 1 stable chronic or 2 minor; add add modifier 95 for video, modifier 93 for phone [facility]/2024 Morbid (severe) obesity due to excess [...] video, modifier 93 for phone [facility] [place]/20[place] Estab. patient 20-29min; 1 stable chronic or 2 minor; add add modifier 95 for video, modifier 93 for phone [facility] [place] 08/[place]/20[place] Estab. patient 20-29min; 1 stable chronic or 2 minor; add add modifier 95 for video, modifier 93 for phone [facility] [place] 08[place]/20[place] Estab. patient 20-29min; 1 stable chronic or 2 minor; add add modifier 95 for video, modifier 93 for phone [facility] [place] 08/[place]/2024 Estab. patient 20-29min; 1 stable chronic or 2 minor; add add modifier 95 for video, modifier 93 for phone [facility] [place]/20[place] Estab. patient 20-29min; 1 stable chronic or 2 minor; add add modifier 95 for video, modifier 93 for phone [facility] [place] 08/[place]/2024 Estab. patient 20-29min; 1 stable chronic or 2 minor; add add modifier 95 for video, modifier 93 for phone [facility] [place] 08/31/2024 Estab. patient 10-29min; 1 minor problem; add add modifier 95 for video, modifier 93 for phone [facility] [place] 03/[place]/2025 Unspecified osteoarthritis, unspecified siteUnsteadiness on feetNeed for assistance with personal care Vital Signs Date of Collection Vitals 2022-05-23 [...] - 90.0 mm[Hg]BP Systolic - 143.0 mm[Hg] 2025-03-07 05:14:41 Height - 157.48 cmWe ight - 98.43 kgBody Mass Index (BMI) - 39.69 kg/m2 Social History Social History Social History Observation Description Effec tive Time Current Smoking Status Never smoker 9 Sex Female History of Procedures Procedures Service Procedure code Service date Servicing provider Phone# No Data Available [id number] 2022-05-20 No Data Available No Data Available [...] (do not use for phone, instead use 94223-35) [id number] 2022-05-23 No Data Available No Data Availa ble Estab. patient 30-39min; chronic exacerbation, 2 stable chronic or 1 acute illness add add modifier 95 for video, (do not use for phone, instead use 23984-46) [id number] 2022-09-23 No Data Available No Data Availa [...] (do not use for phone, instead use 02638-95) [id number] 2023-11-28 No Data Available No Data Availa [...] 95 for video, modifier 93 for phone [id number] 2024-08-31 No Data Available No Data Availa [...] 2024-08-31 No Data Available No Data Available Estab. patient 10-29min; 1 minor problem; add add modifier 95 for video, modifier 93 for phone [id number] 2025-03-07 No Data Available No Data Availa ble Functional Status Functional Category Effective Dates Cognition [...] to medical facilities and other health care 2025-03-07 05:14:41 Osteoarthritis, Gait instability, Requires daily assistance for activities of daily living (ADL) and comfort needs Plan of Care Date of Service Plans [...] Documented (1159F)Continue to see PCP. Follow-up with [facility] as [...] call CBContinue to see PCP. Follow-up with [facility] as [...] documented (1160F)Continue to see PCP. Follow-up with [facility] as [...] joint pain increased [facility]. Follow-up with [facility] as needed for any acute or disease education needs that may arise 24/02.what should be done when the member calls: see each individual diagnosis for contingency planAt least 50% of time spent counseling patient, discussing diagnosis, treatment plan, complicance, and coordinating follow up care. 2025-03-07 05:14:41 Estab. patient 10-29 min; 1 minor problem; add add modifier 95 for video, modifier 93 for phoneContinue to see PCP. Follow-up with [facility] as needed for any acute or disease education needs that may arise 24/02.Take tylenol as needed. Incorporate Vitamin D and calcium. Incorporate an anti-inflammatory diet. Dress warmly for weather. Stretch, stay active as tolerated, weight-bearing exercises, limit caffeine, maintain healthy weight. Fall prevention-use of assistive device. Continue follow up with PCP as scheduled.03/07/25:-daughter is MARINE ENGINEERING PROFESSOR and assists members with ADLs/iADLs-needs new shower chair- CSS task placed today-verified with CSS that raised toilet seat with side railing is considered a home modification and would need to go through leather case finisher/[facility] directly. SMS sent to member's daughter informing of this. Goals Date Goal 2022-05-23 Remember to keep [...] up appointments with established PCP and Specialist. 2025-03-07 Continue taking medi cations as directed and keep all follow up appointments with established PCP and Specialist. 2025-03-07 Task placed for show er chair today Health Concerns Date Concern 2025-03-07 Patient/Guardian remi jimenez to visit via telehealth.Visit completed via:[ ] audio and video; [x] audio only 2025-03-07 Informed verbal cons ent was obtained from this patient to communicate and provide care using virtual and other telecommunications tools. 2025-03-07 Concerns for today's visit:Member is requesting a shower chair and raised toilet seat. Current shower chair is over 10 years old. Per daughter, the shower chair is too old, work out, and unstable at this point. She is also requesting a new raised toilet seat with side railing. Per daughter, this is also over 10 years old and worn and is concerned member may get injured if she continues to use it. Daughter, Jessica, is her MARINE ENGINEERING PROFESSOR as well. 2025-03-07 Most recent hospital stay or ER visit:No ER visits or hospitalizations documented in [facility] in 90 days. Member denies ER visits or hospitalizations in last 90 days. 2025-03-07 Open HEDIS Measures: No open measures
--- OUTSIDE RECORDS SUMMARY | 2025-04-12 13:10 | XMS_ITS | Clinical Summary ---
Author Organization [employer] Address [address] [place] [address] Care Team Providers Care Odd Job Laborer Name Role Phone Unavailable Primary Care Provider [...] by mouth Once per day. 5 Active amoxicillin (Amoxil) 500 MG capsuleIndicati ons:History of tooth extraction, unspecified edentulism class Take 1 capsule (500 mg) by mouth every 8 (eight) hours for 7 days. 21 capsule 5 04/06/20 25 ibuprofen 600 MG tabletIndicatio ns:History of tooth extraction, unspecified edentulism class Take 1 tablet (600 mg) by mouth every 6 (six) hours if needed for mild pain for up to 10 days. 10 tablet 04/09/20 25 Active Problems Problem Noted Date Diagnosed Date High blood pressure 11/24/2024 Encounters Date Type Department Care Team Description 04/07/2025 Orders Only [facility] [address] [place] [address] [phone] Provider, MD Anushka 04/06/2025 9:00 AM EDT Office Visit [facility] [address] [place], [place] [phone] Stuart Gonzalez 03/30/2025 9:30 AM EDT Office Visit [facility] [address] [place] [address] Peter Jack DMD History of tooth extraction, unspecified edentulism class (Primary Dx) from Last 3 Months Social History Tobacco [...] Sign Reading Time Taken Comments Blood Pressure 146/90 03/30/2025 9:25 AM EDT Pulse - - Temperature - [...] 07/08/2024 07/07/2024 COVID-19 Vaccine (4 - season) 2025 04/23/2024, 10/04/2020, 09/02/2020 Influenza Vaccine (#1) 2025 , 05/08/2023, 08/20/2022, Additional history exists Tobacco Screening 04/06/2026 04/06/2025 HIB Vaccines Aged Out No longer eligi [...] Procedure Name Priority Date/Time Associated Diagnosis Comments RE-EVAL - POST-OP OFFICE VISIT Routine 04/06/2025 9:00 AM EDT INCISIONAL BIOPSY OF ORAL TISSUE-HARD (BONE, TOOTH) Routine 03/30/2025 9:30 AM EDT PROPHYLAXIS - ADULT Routine 05/17/2016 1 2:00 AM EDT PERIODIC ORAL EVALUATION - ESTABLISHED PATIENT Routine 01/19/2016 12:00 AM EDT INTRAORAL - COMPLETE SERIES OF RADIOGRAPHIC IMAGES Routine 06/18/2013 12:00 AM EST from Last 3 Months or Most Recently Relevant to Health Maintenance Insurance DENTAL - [facility]
== END 2025-04-12 11:38 | disposition home or self-care (01) ==
LOC: HO.HMCH 10:55
PROVIDERS: PCP Internal Medicine; Visit Provider Internal Medicine
DX: I77.810 Thoracic aortic ectasia (principal); F32.0 Major depressive disorder, single episode, mild; G30.9 Alzheimer's disease, unspecified; F02.B0 Dementia in other diseases classified elsewhere, moderate, without behavioral disturbance, psychotic disturbance, mood disturbance, and anxiety; I10 Essential (primary) hypertension; E78.00 Pure hypercholesterolemia, unspecified; K21.9 Gastro-esophageal reflux disease without esophagitis

== ENCOUNTER → 2025-04-12 10:54 | Outpatient (BNVA) | payer OTHER, SELFPAY | PROVIDERS: PCP Internal Medicine; Visit Provider Internal Medicine | DX: K21.9 Gastro-esophageal reflux disease without esophagitis (principal); M54.9 Dorsalgia, unspecified; J30.9 Allergic rhinitis, unspecified; I10 Essential (primary) hypertension; M85.80 Other specified disorders of bone density and structure, unspecified site; K59.00 Constipation, unspecified; G43.909 Migraine, unspecified, not intractable, without status migrainosus; I77.810 Thoracic aortic ectasia; F32.0 Major depressive disorder, single episode, mild; E78.00 Pure hypercholesterolemia, unspecified; G30.9 Alzheimer's disease, unspecified; F02.B0 Dementia in other diseases classified elsewhere, moderate, without behavioral disturbance, psychotic disturbance, mood disturbance, and anxiety | CPT/HCPCS: 96127; 99212 ==

== ENCOUNTER 2025-04-19 09:26 | Outpatient (REF) | payer OTHER, SELFPAY ==
[2025-04-19 09:44] LABS: MANUAL DIFF FLAG NO
[2025-04-19 10:41] LABS: Hematocrit 38.8 % (37.0-47.0); Hemoglobin 12.1 g/dl (12.0-16.0); Imm Gran Abs Auto 0.01 X10*3/uL (0.00-0.03); Imm Gran Pct Auto 0.2 % (0.0-0.4); Lymphocytes Absolute Auto 1.5 X10*3/uL (1.2-4.9); Mean Corpuscular HGB Conc 31.2 g/dl (31.0-35.0); Mean Corpuscular Hemoglobin 30.3 pg (27.0-33.0); Mean Corpuscular Volume 97.2 fL (80.0-98.0); NRBC Abs Auto 0.000 X10*3/uL (0.0-0.012); NRBC Pct Auto 0.0 /100WBC (0.0-0.2); Platelet Count 164 X10*3/uL (160-400); Red Blood Count 3.99 X10*6/uL (4.20-5.50); White Blood Count 4.5 X10*3/uL (4.8-10.8)
[2025-04-19 11:42] LABS: Alanine Aminotransferase 18 U/L (0-31); Albumin Level 4.4 g/dL (3.5-5.0); Alkaline Phosphatase 70 U/L (39-117); Anion Gap 11 (12-20); Aspartate Amino Transferase 20 U/L (5-31); Blood Urea Nitrogen 16 mg/dL (9-16); Calcium 9.3 mg/dL (8.4-10.2); Carbon Dioxide 31 mmol/L (22-29); Chloride 104 mmol/L (96-108); Cholesterol 171 mg/dL (<200); Estimated Glomerular Filt Rate 56; HDL Cholesterol 58 mg/dL (>40); Iron 70 mcg/dL (30-160); Magnesium 2.1 mg/dL (1.6-2.6); Percent Iron Saturation 31 % (15-50); Potassium 4.3 mmol/L (3.3-5.1); Sodium 142 mmol/L (135-145); Total Iron Binding Capacity 226 mcg/dL (228-428); Total Protein 7.1 g/dL (6.5-8.0); Triglycerides 63 mg/dL (<150); Unsaturated Iron Binding 156 ug/dL
--- OUTSIDE RECORDS SUMMARY | 2025-04-19 11:58 | XMS_ITS ---
Author Name Patrick Snider APRN Address [address] [place] [address] Phone [phone] [facility] Care Team Providers Care Air Hole Driller Name Role Phone Maegan Snider Unavailable [phone] MELL SMITH Unavailable [phone] Reason for Referral Not Available Allergies, adverse [...] FOR 7 DAYS 2022-03-29 No Data Available [id number] Suspension SHAKE LIQUID AND INSTILL 4 DROPPERFUL [...] follow up with PCP as scheduled.03/07/25:-daughter is TANK TRUCK MECHANIC and assists members with ADLs/iADLs-needs new shower chair- CSS task placed today-verified with CSS that raised toilet seat with side railing is considered a home modification and would need to go through medical case worker/[facility] directly. SMS sent to member's daughter informing of this. Encounters Encounters Type Facility Date of Service Diagnosis/Co mplaint No Data Available [facility] [place]20[place] Gastritis, unspecified, with out bleeding Pain Assessment - Pain Documented on a Pain Scale (1125F) [facility] [place] Pain Assessment - Pain Documented on a Pain Scale (1125F) [facility] [place] Pain Assessment - Pain Documented on a Pain Scale (1125F) [facility] [place] Pain Assessment - Pain Documented on a Pain Scale (1125F) [facility] [place] Pain Assessment - Pain Documented on a Pain Scale (1125F) [facility] [place] Pain Assessment - Pain Documented on a Pain Scale (1125F) [facility] [place] Pain Assessment - Pain Documented on a Pain Scale (1125F) [facility] [place] Pain Assessment - Pain Documented on a Pain Scale (1125F) [facility] [place] Pain Assessment - Pain Documented on a Pain Scale (1125F) [facility] [place] Chronic obstructive pulmonar [...] (do not use for phone, instead use 01496-93) [facility] Chronic obstructive pulmonar y disease, unspecifiedBody [...] (do not use for phone, instead use 57420-75) [facility] Estab. patient 30-39min; chronic exacerbation, 2 stable chronic or 1 acute illness add add modifier 95 for video, (do not use for phone, instead use 47613-66) [facility] Estab. patient 30-39min; chronic exacerbation, 2 stable chronic or 1 acute illness add add modifier 95 for video, (do not use for phone, instead use 59495-73) [facility] Estab. patient 30-39min; chronic exacerbation, 2 stable chronic or 1 acute illness add add modifier 95 for video, (do not use for phone, instead use 14229-13) [facility] [place] Estab. patient 30-39min; chronic exacerbation, 2 stable chronic or 1 acute illness add add modifier 95 for video, (do not use for phone, instead use 53381-30) [facility] Estab. patient 30-39min; chronic exacerbation, 2 stable chronic or 1 acute illness add add modifier 95 for video, (do not use for phone, instead use 95028-42) [facility] Estab. patient 30-39min; chronic exacerbation, 2 stable chronic or 1 acute illness add add modifier 95 for video, (do not use for phone, instead use 04944-65) [facility] Estab. patient 30-39min; chronic exacerbation, 2 stable chronic or 1 acute illness add add modifier 95 for video, (do not use for phone, instead use 64724-83) [facility] Estab. patient 30-39min; chronic exacerbation, 2 stable chronic or 1 acute illness add add modifier 95 for video, (do not use for phone, instead use 34722-43) [facility]/2023 Morbid (severe) obesity due to excess [...] (do not use for phone, instead use 99648-10) [facility]20[place] Estab. patient 30-39min; chronic exacerbation, 2 stable chronic or 1 acute illness add add modifier 95 for video, (do not use for phone, instead use 16012-14) [facility]/2023 Estab. patient 30-39min; chronic exacerbation, 2 stable chronic or 1 acute illness add add modifier 95 for video, (do not use for phone, instead use 95008-76) [facility]/2023 Estab. patient 30-39min; chronic exacerbation, 2 stable chronic or 1 acute illness add add modifier 95 for video, (do not use for phone, instead use 87088-86) [facility] Estab. patient 30-39min; chronic exacerbation, 2 stable chronic or 1 acute illness add add modifier 95 for video, (do not use for phone, instead use 77479-86) [facility] Estab. patient 30-39min; chronic exacerbation, 2 stable chronic or 1 acute illness add add modifier 95 for video, (do not use for phone, instead use 91657-74) [facility] Estab. patient 30-39min; chronic exacerbation, 2 stable chronic or 1 acute illness add add modifier 95 for video, (do not use for phone, instead use 48611-54) [facility] Estab. patient 30-39min; chronic exacerbation, 2 stable chronic or 1 acute illness add add modifier 95 for video, (do not use for phone, instead use 07769-01) [facility]23 Estab. patient 20-29min; 1 stable chronic or 2 minor; add add modifier 95 for video, modifier 93 for phone [facility]/2024 Morbid (severe) obesity due to [...] 95 for video, modifier 93 for phone [facility] Estab. patient 20-29min; 1 stable chronic or 2 minor; add add modifier 95 for video, modifier 93 for phone [facility]/20[place] Estab. patient 20-29min; 1 stable chronic or 2 minor; add add modifier 95 for video, modifier 93 for phone [facility] Estab. patient 20-29min; 1 stable chronic or 2 minor; add add modifier 95 for video, modifier 93 for phone [facility] Estab. patient 20-29min; 1 stable chronic or 2 minor; add add modifier 95 for video, modifier 93 for phone [facility] Estab. patient 20-29min; 1 stable chronic or 2 minor; add add modifier 95 for video, modifier 93 for phone [facility] [place] 08/[place]/20[place] Estab. patient 20-29min; 1 stable chronic or 2 minor; add add modifier 95 for video, modifier 93 for phone [facility] Estab. patient 10-29min; 1 minor problem; add add modifier 95 for video, modifier 93 for phone [facility] 03/07/2025 Unspecified osteoarthritis, unspecified siteUnsteadiness on feetNeed [...] tive Time Current Smoking Status Never smoker 2025-04-04 4 Sex Female History of Procedures Procedures Service Procedure code Service date Servicing provider Phone# No Data Available [id number] 2022-05-20 No Data Available No Data Available [...] (do not use for phone, instead use 78020-23) [id number] 2022-05-23 No Data Available No Data Availa ble Estab. patient 30-39min; chronic exacerbation, 2 stable chronic or 1 acute illness add add modifier 95 for video, (do not use for phone, instead use 63349-42) 19018 2022-09-23 No Data Available No Data Availa [...] (do not use for phone, instead use 17282-57) 78514 2023-11-28 No Data Available No Data Availa [...] 95 for video, modifier 93 for phone 16983 2024-08-31 No Data Available No Data Availa [...] 95 for video, modifier 93 for phone 31146 2025-03-07 No Data Available No Data Availa [...] follow up with PCP as scheduled.03/07/25:-daughter is TANK TRUCK MECHANIC and assists members with ADLs/iADLs-needs new shower chair- CSS task placed today-verified with CSS that raised toilet seat with side railing is considered a home modification and would need to go through medical case worker/[facility] directly. SMS sent to member's daughter [...] today Health Concerns Date Concern 2025-03-07 Patient/Guardian agr eesherman to visit via telehealth.Visit completed via:[ ] [...] to use it. Daughter, Jessica, is her TANK TRUCK MECHANIC as well. 2025-03-07 Most recent hospital stay or ER visit:No ER visits or hospitalizations documented in [facility] in 90 days. Member denies ER visits or hospitalizations in last 90 days. 2025-03-07 Open HEDIS Measures: No open measures
--- OUTSIDE RECORDS SUMMARY | 2025-04-19 11:58 | XMS_ITS | Clinical Summary ---
Author Organization [employer] Address [address] [place] [address] Care Team Providers Care Grain Distributor Name Role Phone Unavailable Primary Care Provider [...] Department Care Team Description 04/07/2025 Orders Only [place] [facility] [address] [place] [address] [phone] Provider, MD Anushka 04/06/2025 9:00 AM EDT Office Visit [facility] [address], [place] [phone] Stuart Gonzalez 03/30/2025 9:30 AM EDT Office Visit [facility] [address] [place] [address] Peter Jack DMD History of tooth extraction, [...] Health Maintenance Insurance DENTAL - [facility] S[facility]
--- OUTSIDE RECORDS SUMMARY | 2025-04-19 11:58 | XMS_ITS | Encounter Summary ---
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 Jack at 9:25 on 04/06/25. 04/06/2025 9:29 AM EDT [facility] Clinical Information 4mm clean mass right lingual mandible (subperiostea l) ? mucocele 04/06/2025 9:29 AM EDT [facility] Gross Description A. Oral Cavity, 4mm [...] two pieces. KRISTIAN 04/06/2025 9:29 AM EDT [facility] Disclaimer Unless otherwise specified, all tissue is 10% NB formalin fixed and paraffin embedded. 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
--- OUTSIDE RECORDS SUMMARY | 2025-04-19 11:58 | XMS_ITS | Clinical Summary ---
Author Organization [address] [facility] Address [address] [place] [address] Phone Care Team Providers Care Manager Of Maintenance Name Role Phone Unavailable Primary Care Provider Unavailabl e Encounters Date Type Department Care Team Description 04/05/2025 Lab Requisition [facility] - Main Lab [address] [facility] [place] [address] Peter Jack DMD Benign neoplasm [...] excision: Benign simple cyst 04/06/2025 9:29 AM [facility] Comment The findings were discussed with Dr. Jack at 9:25 on 04/06/25. 04/06/2025 9:29 AM [facility] Clinical Information 4mm clean mass right lingual mandible (subperiostea l) ? mucocele 04/06/2025 9:29 AM [facility] Gross Description A. Oral [...] cassette, two pieces. KRISTIAN 04/06/2025 9:29 AM [facility] Disclaimer Unless otherwise specified, all tissue is 10% NB formalin fixed and paraffin embedded. 04/06/2025 9:29 AM [facility] Tissue Oral cavity structure / Unknown 03/30/2025 04/05/2025 7:27 AM EDT us Peter Jack DMD LAB PATHOLOGY ORDERABLES Michelle kendall Result [facility] [address] [place] [address], [place] [phone] from Last 3 Months Insurance [facility] MEDICARE MEDICAID - [place] [facility]
--- OUTSIDE RECORDS SUMMARY | 2025-04-19 11:58 | XMS_ITS | Encounter Summary ---
Author Organization [employer] Address [address] [place] [address] 7 [place] [address] Care Team Providers Care Health Informatics Instructor Name Role Phone Unavailable Primary Care Provider Unavailabl e Encounter Details Date Type Department Care Team (Late st Contact Info) Description 04/07/2025 Orders Only [facility] [address] [place] [address] Provider, MD Anushka Social History Tobacco Use [...]
--- OUTSIDE RECORDS SUMMARY | 2025-04-19 11:58 | XMS_ITS | Patient Health Record ---
Author Organization 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 Plan Of Treatment Pending Test Test Name Order Date X ray : Foot, left 2V 08/30/2019 Insurance Providers Payer Name Payer Address Payer Phone Subscriber Number Group Number Insured Name Patient Relationship to Insured Coverage Start Date Coverage End Date [facility] [address] [place] [address] [id number] DREWEstefany Lindsey Self - patient is the insured Medical (General) History Medical History History ICD Code Arthritis asthma Back,Hip,and Knee pain Cancer Depression Diverticulosis Gall bladder problems High blood pressure Osteoporosis thyroid Surgical History Surgery Date(Month/Year) knee replacement 2007 gall bladder 2001 breast cancer 2017
[2025-04-19 12:12] LABS: Folate 14.2 ng/mL (> or = 4.0); Vitamin B12 711 pg/mL (200-900)
[2025-04-19 12:14] LABS: Thyroid Stimulating Hormone 1.82 uIU/mL (0.32-4.0)
== END 2025-04-19 09:27 | disposition home or self-care (01) ==
LOC: HO.LAB 09:26
PROVIDERS: PCP Internal Medicine; Visit Provider Internal Medicine
DX: D64.9 Anemia, unspecified (principal); E04.2 Nontoxic multinodular goiter; E78.5 Hyperlipidemia, unspecified; M17.11 Unilateral primary osteoarthritis, right knee; E55.9 Vitamin D deficiency, unspecified; E53.8 Deficiency of other specified B group vitamins
CPT/HCPCS: 36415; 80053; 80061; 82306; 82607; 82746; 83540; 83735; 84443; 85025

== ENCOUNTER 2025-05-14 11:01 | Emergency (ER) | payer OTHER, SELFPAY ==
--- NOTE | ~2025-05-14 | CT_ITS ---
CLINICAL HISTORY: Fall CT cervical spine without contrast. COMPARISON: None provided. FINDINGS: Straightening with reversal of normal cervical lordosis. Vertebral body heights are maintained. No evidence of acute vertebral body injury. Skull base and intracranial structures appear normal. Left thyroid lobe nodule measuring 3.0 cm. Calcified plaque present at the carotid bulbs bilaterally. C2-C3: Anterior marginal osteophytes. C3-C4: Anterior marginal osteophytes. Loss of disc space height. Uncovertebral joint hypertrophy. Moderate left and mild right neural foraminal narrowing. C4-C5: Anterior marginal osteophytes. C5-C6: Anterior marginal osteophytes. Loss of disc space height. Uncovertebral joint hypertrophy. Mild bilateral neural foraminal narrowing. C6-C7: Anterior marginal osteophytes. Uncovertebral joint hypertrophy. Mild right neural foraminal narrowing. IMPRESSION: 1. No evidence of acute injury to the cervical spine. 2. Straightening with reversal of normal cervical lordosis, likely positional. 3. Left thyroid lobe nodule measuring 3.0 cm. Recommend correlation with recent thyroid ultrasound. This document has been electronically signed by: Sandor Barrientos MD on 05/14/2025 12:54:04
--- NOTE | ~2025-05-14 | CT_ITS ---
CLINICAL HISTORY: Fall CT head without contrast. COMPARISON: MR brain dated 12/26/23 at 11:01 EDT FINDINGS: The visualized paranasal sinuses are clear. The mastoid air cells are clear. No calvarial fracture. Atherosclerotic intracranial vasculature. No evidence for mass or mass effect. No intracranial hemorrhage or abnormal extra-axial fluid collection. Basal ganglia mineralization present on the left. The ventricles are proportional with the degree of [id number]-bk-qtxpdedr global cerebral volume loss without evidence of hydrocephalus. Basilar cisterns are patent. There are periventricular areas of low attenuation compatible with zzvx-gj-bvkdysfh white matter small vessel disease. Posterior fossa appears unremarkable. IMPRESSION: 1. No acute intracranial findings. This document has been electronically signed by: Sandor Barrientos MD on 05/14/2025 12:53:44
[2025-05-14 11:07] VITALS: BP 168/92; PULSE 66; O2SAT 98
[2025-05-14 11:09] VITALS: BP 154/90; PULSE 66; RESP 18; TEMP 37.1; O2SAT 96; BMI 39.9
--- OUTSIDE RECORDS SUMMARY | 2025-05-14 11:29 | XMS_ITS | Patient Health Record ---
Author [facility] Address [address] [place] [address] Care Team Providers Care Blending Kettle Tender Name Role Phone Nichole HERMAN, Kathy Primary Care Provider Unavail able Allergies Allergen (clinical drug ingredient) Drug/Non Drug Allergy documented on EMR Reaction Allergy Type Onset Date Status ibuprofen Advil thin blood Drug Allergy Active Aleve thin blood Drug Allergy Active Morphine Sulfate vomiting Drug Allergy Active Motrin [...] day; Duration: 30 day(s) Active Aspir-81 Active [place] 3 1000 MG 1 capsule Orally Onc [...] Status Risk Notes Problem Acquired hallux valgus (05187313) 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 [address] [place] [address] [id number] Estefany Garcia Self - patient is the insured Medical (General) History Medical History History ICD Code Arthritis asthma Back,Hip,and Knee pain Cancer Depression Diverticulosis Gall bladder problems High blood pressure Osteoporosis thyroid Surgical History Surgery Date(Month/Year) knee replacement 2007 gall bladder 2001 breast cancer 2017
--- OUTSIDE RECORDS SUMMARY | 2025-05-14 11:29 | XMS_ITS | Clinical Summary ---
Author Organization 299 [facility] Address [address] [place] [address] Phone Care Team Providers Care Recruitment Officer Name Role Phone Unavailable Primary Care Provider Unavailabl e Encounters Date Type Department Care Team Description 04/05/2025 Lab Requisition [facility] - Main Lab [address] [facility] [place] [address] Peter Jack DMD Benign neoplasm [...] excision: Benign simple cyst 04/06/2025 9:29 AM [facility] Comment The findings were discussed with Dr. Jack at 9:25 on 04/06/25. 04/06/2025 9:29 AM [facility] Clinical Information 4mm clean mass right lingual mandible (subperiostea l) ? mucocele 04/06/2025 9:29 AM [facility] Gross Description A. Oral [...] cassette, two pieces. KRISTIAN 04/06/2025 9:29 AM [facility] Disclaimer Unless otherwise specified, all tissue is 10% NB formalin fixed and paraffin embedded. 04/06/2025 9:29 AM [facility] Tissue Oral cavity structure / Unknown 03/30/2025 04/05/2025 7:27 AM EDT us Peter Jack DMD LAB PATHOLOGY ORDERABLES Michelle kendall Result [facility] [address] [place] [address], [place] [phone] from Last 3 Months Insurance [facility] MEDICARE MEDICAID - [place] [facility]
--- OUTSIDE RECORDS SUMMARY | 2025-05-14 11:29 | XMS_ITS | Clinical Summary ---
Author Organization [employer] Address [address] [place] [address] [address] [place] [address] Care Team Providers Care Airport Operations Specialist Name Role Phone Unavailable Primary Care [...] Department Care Team Description 04/07/2025 Orders Only [place] [facility] [address] [place], [place] [phone] ProviderAnushka MD 04/06/2025 9:00 AM EDT Office Visit [facility] [address] [place] [address] Stuart Gonzalez 03/30/2025 9:30 AM EDT Office Visit [facility] [address] [place] [address] Peter Jack DMD History of tooth extraction, [...] 07/07/2024 COVID-19 Vaccine (4 - 2023- season) 2025 04/23/2024, 10/04/2020, 09/02/2020 Influenza Vaccine [...] Relevant to Health Maintenance Insurance DENTAL - [facility] SCO
--- OUTSIDE RECORDS SUMMARY | 2025-05-14 11:29 | XMS_ITS ---
Author Name Diana Lopez NP Address [address] [place] [address] Phone [phone] [facility] Care Team Providers Care Mower Sharpener Name Role Phone Diana Lopez Unavailable [phone] MELL SMITH Unavailable [phone] Reason for Referral Not Available Allergies, adverse [...] mg Tab TAKE 1 TABLET BY AUDRA EVERY 8 HOURS NEEDED FOR PAIN 2021-12-24 [...] FOR 7 DAYS 2022-03-29 No Data Available [id number] Suspension SHAKE LIQUID AND INSTILL 4 DROPPERFUL [...] follow up with PCP as scheduled.03/07/25:-daughter is FISHER SPEAR and assists members with ADLs/iADLs-needs new shower chair- CSS task placed today-verified with CSS that raised toilet seat with side railing is considered a home modification and would need to go through catalytic case operator/[facility] directly. SMS sent to member's daughter informing of this. Encounters Encounters Type Facility Date of Service Diagnosis/Co mplaint No Data Available [facility] [place]20[place] Gastritis, unspecified, with out bleeding Pain Assessment - Pain Documented on a Pain Scale (1125F) [facility] [place] 05[place]20[place] Pain Assessment - Pain Documented on a Pain Scale (1125F) [facility] [place] Pain Assessment - Pain Documented on a Pain Scale (1125F) [facility] [place] Pain Assessment - Pain Documented on a Pain Scale (1125F) [facility] [place] Pain Assessment - Pain Documented on a Pain Scale (1125F) [facility] [place] Pain Assessment - Pain Documented on a Pain Scale (1125F) [facility] [place] Pain Assessment - Pain Documented on a Pain Scale (1125F) [facility] [place] Pain Assessment - Pain Documented on a Pain Scale (1125F) [facility] [place] Pain Assessment - Pain Documented on a Pain Scale (1125F) [facility] [place]20[place] Chronic obstructive [...] (do not use for phone, instead use 40933-99) [facility], ([place] 09[place]20[place] Chronic obstructive pulmonar y disease, unspecifiedBody [...] (do not use for phone, instead use 73442-15) [facility] [place] Estab. patient 30-39min; chronic exacerbation, 2 stable chronic or 1 acute illness add add modifier 95 for video, (do not use for phone, instead use 75176-28) [facility] [place] Estab. patient 30-39min; chronic exacerbation, 2 stable chronic or 1 acute illness add add modifier 95 for video, (do not use for phone, instead use 66000-30) [facility] [place] Estab. patient 30-39min; chronic exacerbation, 2 stable chronic or 1 acute illness add add modifier 95 for video, (do not use for phone, instead use 55794-26) [facility] [place] Estab. patient 30-39min; chronic exacerbation, 2 stable chronic or 1 acute illness add add modifier 95 for video, (do not use for phone, instead use 97805-24) [facility] [place] Estab. patient 30-39min; chronic exacerbation, 2 stable chronic or 1 acute illness add add modifier 95 for video, (do not use for phone, instead use 75493-14) [facility] [place] Estab. patient 30-39min; chronic exacerbation, 2 stable chronic or 1 acute illness add add modifier 95 for video, (do not use for phone, instead use 30769-32) [facility] [place] Estab. patient 30-39min; chronic exacerbation, 2 stable chronic or 1 acute illness add add modifier 95 for video, (do not use for phone, instead use 56759-08) [facility] [place]22 Estab. patient 30-39min; chronic exacerbation, 2 stable chronic or 1 acute illness add add modifier 95 for video, (do not use for phone, instead use 49204-24) [facility] ([place] 11[place]28/2023 Morbid (severe) obesity due to [...] (do not use for phone, instead use 88515-17) [facility] [place]23 Estab. patient 30-39min; chronic exacerbation, 2 stable chronic or 1 acute illness add add modifier 95 for video, (do not use for phone, instead use 15588-11) [facility] [place]/2023 Estab. patient 30-39min; chronic exacerbation, 2 stable chronic or 1 acute illness add add modifier 95 for video, (do not use for phone, instead use 93813-06) [facility] [place]/2023 Estab. patient 30-39min; chronic exacerbation, 2 stable chronic or 1 acute illness add add modifier 95 for video, (do not use for phone, instead use 71435-40) [facility] [place]23 Estab. patient 30-39min; chronic exacerbation, 2 stable chronic or 1 acute illness add add modifier 95 for video, (do not use for phone, instead use 58072-51) [facility] [place]23 Estab. patient 30-39min; chronic exacerbation, 2 stable chronic or 1 acute illness add add modifier 95 for video, (do not use for phone, instead use 33030-73) [facility] [place]23 Estab. patient 30-39min; chronic exacerbation, 2 stable chronic or 1 acute illness add add modifier 95 for video, (do not use for phone, instead use 50062-46) [facility] [place]/2023 Estab. patient 30-39min; chronic exacerbation, 2 stable chronic or 1 acute illness add add modifier 95 for video, (do not use for phone, instead use 98645-87) [facility] [place]23 Estab. patient 20-29min; 1 stable chronic or 2 minor; add add modifier 95 for video, modifier 93 for phone [facility] [place] 08/[place]/2024 Morbid (severe) obesity due to [...] 95 for video, modifier 93 for phone [facility] [place]/20[place] Estab. patient 20-29min; 1 stable chronic or 2 minor; add add modifier 95 for video, modifier 93 for phone [facility] [place] 08/31/20[place] Estab. patient 20-29min; 1 stable chronic or 2 minor; add add modifier 95 for video, modifier 93 for phone [facility] [place]/31/2024 Estab. patient 20-29min; 1 stable chronic or 2 minor; add add modifier 95 for video, modifier 93 for phone [facility] [place] 08/31/2024 Estab. patient 20-29min; 1 stable chronic or 2 minor; add add modifier 95 for video, modifier 93 for phone [facility] 08[place] Estab. patient 20-29min; 1 stable chronic or 2 minor; add add modifier 95 for video, modifier 93 for phone [facility] [place] 08/[place] Estab. patient 20-29min; 1 stable chronic or 2 minor; add add modifier 95 for video, modifier 93 for phone [facility] [place] 08/[place]/2024 Estab. patient 10-29min; 1 minor problem; add add modifier 95 for video, modifier 93 for phone [facility] [place] 03/07/2025 Unspecified osteoarthritis, unspecified siteUnsteadiness on feetNeed [...] tive Time Current Smoking Status Never smoker 2025-05-04 1 Sex Female History of Procedures Procedures Service Procedure code Service date Servicing provider Phone# No Data Available [id number] 2022-05-20 No Data Available No Data Available [...] (do not use for phone, instead use 56746-93) [id number] 2022-05-23 No Data Available No Data Availa ble Estab. patient 30-39min; chronic exacerbation, 2 stable chronic or 1 acute illness add add modifier 95 for video, (do not use for phone, instead use 46816-10) [id number] 2022-09-23 No Data Available No Data Availa [...] (do not use for phone, instead use 08861-62) [id number] 2023-11-28 No Data Available No Data Availa [...] 95 for video, modifier 93 for phone 51631 2024-08-31 No Data Available No Data Availa [...] 95 for video, modifier 93 for phone 14433 2025-03-07 No Data Available No Data Availa [...] follow up with PCP as scheduled.03/07/25:-daughter is [employer] and assists members with ADLs/iADLs-needs new shower chair- CSS task placed today-verified with CSS that raised toilet seat with side railing is considered a home modification and would need to go through catalytic case operator/[facility] directly. SMS sent to member's daughter [...] to use it. Daughter, Jessica, is her FISHER SPEAR as well. 2025-03-07 Most recent hospital stay or ER visit:No ER visits or hospitalizations documented in [facility] in 90 days. Member denies ER visits or hospitalizations in last 90 days. 2025-03-07 Open HEDIS Measures: No open measures
--- OUTSIDE RECORDS SUMMARY | 2025-05-14 11:29 | XMS_ITS | Encounter Summary ---
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 Comment The findings were discussed with Dr. Jack at 9:25 on 04/06/25. 04/06/2025 9:29 AM EDT [facility] Clinical Information 4mm clean mass right lingual mandible (subperiostea l) ? mucocele 04/06/2025 9:29 AM EDT [facility] Gross Description A. 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
--- OUTSIDE RECORDS SUMMARY | 2025-05-14 11:29 | XMS_ITS | Encounter Summary ---
Author Organization [employer] Address [address] [place] [address] [address] [place] [address] Care Team Providers Care Director Of Medical Review Name Role Phone Unavailable Primary Care Provider Unavailabl e Encounter Details Date Type Department Care Team (Late st Contact Info) Description 04/07/2025 Orders Only [facility] [address] [place] [address] Provider, MD Anushka Social History Tobacco Use [...]
--- NOTE | 2025-05-14 11:37 | ED_ITS ---
HPI - Fall General Chief Complaint: Fall Stated Complaint: FALL Time Seen by Provider: 05/14/25 11:30 Source: patient, family, EMS and lang interpreter Mode of arrival: EMS Limitations: no limitations History of Present Illness ED Provider: DR. Becerra HPI Narrative: 79-year-old female brought in by ambulance after was found by her family on the ground, patient was in the sitting position, patient is a little historian unable to explain how she fell, granddaughter found her on the ground, no apparent head injury or neck pain patient is complaining of no symptoms at current time. No CP, no SOB, no abdominal pain. Related Data Home Medications ?Medication ?Instructions ?Recorded ?Confirmed acetaminophen 325 mg tablet 325 mg PO BID PRN Pain 04/12/25 (Tylenol) mnxbotawqfui-wfncyzee-hqgdud tablet 1 tab PO DAILY 04/12/25 omega-3 fatty acids 1,000 mg 1,000 mg PO DAILY 0 04/12/25 capsule trazodone 150 mg tablet 150 mg PO BEDTIME 05/22/20 0 04/12/25 epinephrine 0.3 mg/0.3 mL 0.3 ml IM DAILY PRN Allergic 07/17/21 04/12/25 injection, auto-injector Reaction mometasone 0.1 % topical cream 1 appl topical DAILY RI N Rash 07/17/21 04/12/25 sertraline 100 mg tablet 200 mg PO DAILY 10/18/2204/28 olopatadine 0.1 % eye drops 1 drp ophthalmic (eye) BRENDA LY 06/17/23 04/12/25 cetirizine 10 mg tablet 10 mg PO DAILY 09/27/2404/28 Previous Rx's ?Medication ?Instructions ?Recorded walker #1 ea 09/18/20 nystatin 100,000 unit/gram topical 1 appl topical SHABNAM Y PRN rash 30 12/23/23 powder days #30 grams polyethylene glycol 3350 17 17 g PO DAILY Constipation 30 days 02/02/24 gram/dose oral powder #510 grams amlodipine 5 mg tablet 5 mg PO DAILY #90 tabs 06/12 omeprazole 20 mg capsule,delayed 20 mg PO DAILY 90 day s #90 caps 07/26/24 release sumatriptan succinate 25 mg tablet 25 mg PO Q2-4H PRN migraine 08/05/24 headache 30 days #9 tabs albuterol sulfate 90 mcg/actuation 1 - 2 puff PO Q4-6H PRN Shortness 08/18/24 aerosol inhaler Of Breath 30 days #18 grams magnesium citrate 296 ml PO ONCE constipation #296 mL 09/27/24 aspirin 81 mg tablet,delayed 81 mg PO DAILY 90 days #9 0 tabs 09/28/24 release ferrous sulfate 325 mg (65 mg 325 mg PO DAILY 30 days #30 tabs 11/20/24 iron) tablet (Iron (ferrous sulfate)) atorvastatin 80 mg tablet 80 mg PO BEDTIME 90 days #90 tabs 11/23/24 memantine 10 mg tablet 10 mg PO BID dementia 90 day s #180 12/28/24 tabs losartan 100 mg tablet 100 mg PO DAILY 90 days #90 tabs 01/20/25 sennosides 8.6 mg tablet (senna) 8.6 mg PO BEDTIME PRN constipation 03/21/25 30 days #30 tabs cholecalciferol (vitamin D3) 25 25 mcg PO DAILY #90 ta bs 04/16/25 mcg (1,000 unit) tablet oxycodone 5 mg tablet 5 mg PO BID pain 30 days #60 tabs 04/19/25 furosemide 40 mg tablet 40 mg PO DAILY 90 days #90 t abs 04/25/25 Allergies Allergy/AdvReac Type Severity Reaction Status Date / Time cat dander (CAT DANDER) Allergy Intermediate skin rash Verified 05/14/25 11:13 mite-Dermatophagoides Allergy Intermediate watery Verified 05/14/25 11:13 farinae, skyla (DUST MITES) itchy eyes, sneezing Review of Systems 2 Review of Systems: All other systems are reviewed and are negative Constitutional: Reports as per HPI and Reports no additional constitutional complaints Eyes: Reports as per HPI and Reports no additional eye complaints Reports system reviewed and no additional complaints, except as documented Cardiovascular: Reports as per HPI and Reports no additional cardiovascular complaints Respiratory: Reports as per HPI and Reports no additional respiratory complaints Gastrointestinal: Reports as per HPI and Reports no additional gastrointestinal complaints Genitourinary: Reports no additional female genitourinary complaints Musculoskeletal: Reports no additional musculoskeletal complaints Skin/Breast: Reports system reviewed and no additional complaints, except as docu Psychiatric: Reports no additional psychiatric complaints Endocrine: Reports no additional endocrine complaints Hematologic/Lymphatic: Reports no additional hematologic/lymphatic complaints Allergic/Immunologic: Reports no additional allergic/immunologic complaints Reports system reviewed and no additional complaints, except as documented and Reports Abnormal speech present [facility] Past Medical History Medical History Dementia Multinodular goiter HX: breast cancer Thyroid disease Depression Obesity (BMI 30-39.9) Vitamin D deficiency Migraine GERD without esophagitis Anemia Asthma Pure hypercholesterolemia Environmental allergies Venous (peripheral) insufficiency Complex renal cyst Gall stones Mild major depression Dyslipidemia Tremor of left hand Invasive ductal carcinoma of left breast Non-toxic multinodular goiter Lumbar degenerative disc disease Renal calculi Insomnia Constipation due to opioid therapy Essential hypertension Surgical History History of left cataract surgery Hx of varicose vein stripping Hx of cystoscopy Hx of biopsy H/O colonoscopy Hx of dilation and curettage History of esophagogastroduodenoscopy (EGD) Hx of hand surgery History of lumpectomy of left breast History of lithotripsy History of left knee replacement History of section Family History Family History Father Medical history unknown Mother Lung cancer Colon cancer Social History Social History Household Members: None Household Members Other:: daughter Albseema Housing: Apartment Are you a primary acute care nursing assistant to a significant other at home: No Do you presently have visiting nurse or other home services: Yes (daughter HEAT TREATER HELPER 24/7) Alcohol intake: never Patient Tobacco Use Status: Never used Tobacco e-Cigarette/Vaping Use: Never Used Second Hand Smoke Exposure: No Advance Directives: Yes Advance Directives on File: Yes Advance Directives Date on File: 11/12/17 Do you have a plan to hurt others: No Plan service: No 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al status: unemployed and disabled 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 Blood pressure elevated. Heart rate normal. Respiratory rate normal. Temperature normal. Oxygen saturation normal. Appearance: Alert. Oriented X3. No acute distress. Head: Normal external exam. Normocephalic. Atraumatic. No Garay signs noted. No raccoon eyes noted Eyes: PERRLA. EOMI. Conjunctiva and sclera normal. Eyelids normal. ENT: TM's Normal. Pharynx normal. Uvula midline. Moist mucous membranes. No trismus noted. No drooling noted. No muffled voice noted. Neck: Normal inspection. Neck supple. FROM. No adenopathy. Thyroid Normal. No meningeal signs. No neck mass noted. CVS: Normal heart rate and rhythm. Heart sound normal. No murmurs noted. Pulses normal throughout. Respiratory: No respiratory distress. Painless inspiration. Breath sounds normal. No wheezes/rales/rhonchi noted. Chest nontender. No accessory muscle usage noted or decreased air movement noted. Abdomen: Soft and nontender. Bowel sounds normal in all 4 quadrants. No distention noted. No organomegaly noted. No visible injury noted. Back: No CVA tenderness. Full range of motion noted. Skin: Skin warm and dry. Normal skin color. Normal skin turgor. No rashes/lesions/lacerations noted. Extremities: No lower extremity edema. Extremities exhibit normal range of motion. Extremities nontender. Neuro: Oriented X 3. Cranial nerve exam: II-XII are grossly intact No motor deficit. No sensory deficit. Reflexes normal. Course Reevaluation(s) Reevaluation #1: 79-year-old female s/p mechanical fall, unremarkable workup today, patient feels at her baseline, no specific complaints, patient and family would like to go home if everything is negative, review all the workup was unremarkable. Time: 13:48 Medical Decision Making Differential Diagnosis Differential Diagnoses: The differential diagnosis associated with the presentation includes (Syncope, mechanical fall, head injury, cervical spine injury, chest injury, back injury, abdominal injury, extremity injury, severe anemia, electrolyte derangement.) Admission/Observation Consideration of admission/observation: Escalation of care including admission/observation considered Lab Data MDM Lab Attestation statement: I reviewed the patient's lab results. 05/14/25 11:59 05/14/25 11:59 Labs: Lab Results 05/14/25 05/14/25 Range/Units 11:59 13:27 WBC 5.2 (4.8-10.8) X10*3/uL RBC 3.80 L (4.20-5.50) X10*6/uL Hgb 11.4 L (12.0-16.0) g/dl Hct 36.9 L (37.0-47.0) % MCV 97.1 (80.0-98.0) fL MCH 30.0 (27.0-33.0) pg MCHC 30.9 L (31.0-35.0) g/dl RDW 13.2 (11.0-16.0) % Plt Count 144 L (160-400) X10*3/uL MPV 11.1 (9.4-12.3) fL Immature Gran % (Auto) 0.2 (0.0-0.4) % Neut % (Auto) 65.2 (45-73) % Lymph % (Auto) 23.3 (20-40) % [place] % (Auto) 9.1 (2-11) % Eos % (Auto) 1.6 (0-4) % Baso % (Auto) 0.6 (0-2) % Lymph # (Auto) 1.2 (1.2-4.9) X10*3/uL [place] # (Auto) 0.5 (0.1-1.2) X10*3/uL Eos # (Auto) 0.1 (0.0-0.4) X10*3/uL Baso # (Auto) 0.0 (0.0-0.2) X10*3/uL Abs Immat Gran (auto) 0.01 (0.00-0.03) X10*3/uL Absolute Neuts (auto) 3.4 (2.0-8.3) x10*3/uL Absolute Nucleated RBC 0.000 (0.0-0.012) X10*3/uL Nucleated RBC % (auto) 0.0 (0.0-0.2) /100WBC Sodium 141 (135-145) mmol/L Potassium 3.8 (3.3-5.1) mmol/L Chloride 106 (96-108) mmol/L Carbon Dioxide 28 (22-29) mmol/L Anion Gap 11 L (12-20) BUN 21 H (9-16) mg/dL Creatinine 0.97 (0.5-1.4) mg/dL Estim Creat Clear Calc 50.0 Estimated GFR 55 Random Glucose 92 (60-115) mg/dL Calcium 9.1 (8.4-10.2) mg/dL Total Bilirubin 0.5 (0.0-1.0) mg/dL Direct Bilirubin 0.2 (0.0-0.5) mg/dL AST 20 (5-31) U/L ALT 15 (0-31) U/L Alkaline Phosphatase 63 (39-117) U/L Total Creatine Kinase 163 H (26-140) U/L Troponin I High Sens 14.3 (<3.5-17.0) ng/L Total Protein 6.9 (6.5-8.0) g/dL Albumin 4.3 (3.5-5.0) g/dL Lipase 14 (8-78) U/L Urine Color Yellow Urine Appearance Clear Urine pH 6.0 (5.0-9.0) Ur Specific [place] 1.010 (1.005-1.025) Urine Protein Negative (Neg-Trace) mg/dL Urine Glucose (UA) Negative (Negative) mg/dL Urine Ketones Negative (Negative) mg/dL Urine Blood Trace H (Negative) Urine Nitrite Negative (Negative) Ur Leukocyte Esterase Negative (Negative) Urine RBC 3-5 H (0-2) /HPF Urine WBC 0-5 (0-5) /HPF Ur Squamous Epith Cells 0-2 (0-2) /HPF Urine Bacteria None Seen (None Seen) Hyaline Casts 0-2 (0-2) /LPF Independent Interpretation I performed an independent interpretation of an: CT Scan (Head/C-spine CT: No acute intracranial findings.1. No evidence of acute injury to the cervical spine. 2. Straightening with reversal of normal cervical lordosis, likely positional. 3. Left thyroid lobe nodule measuring 3.0 cm. Recommend correlation with recent thyroid ultrasound.) Radiology Impression Discussion of test interpretation with radiology: I have reviewed the radiologist's reading. Discharge Plan Discharge Clinical Impression: Accident due to mechanical fall without injury Patient Disposition: Home, Self-Care Instructions: Fall Prevention (ED) Prescriptions: No Action (DME) walker Misc See Rx Instructions .ROUTE .MEDSUPPLY Qty: 1 0RF Rx Instructions: with wheels nystatin 100,000 unit/gram powder 1 appl topical DAILY PRN (Reason: rash) 30 Days Qty: 30 1RF amlodipine 5 mg tablet 5 mg PO DAILY Qty: 90 0RF omeprazole 20 mg capsule,delayed release(DR/EC) 20 mg PO DAILY 90 Days Qty: 90 3RF sumatriptan succinate 25 mg tablet 25 mg PO Q2-4H PRN (Reason: migraine headache) 30 Days Qty: 9 1RF Rx Instructions: do not exceed 8 doses per 24 hrs albuterol sulfate 90 mcg/actuation HFA aerosol inhaler 1 - 2 puff PO Q4-6H PRN (Reason: Shortness Of Breath) 30 Days Qty: 18 6RF aspirin 81 mg tablet,delayed release (DR/EC) 81 mg PO DAILY 90 Days Qty: 90 3RF ferrous sulfate [Iron (ferrous sulfate)] 325 mg (65 mg iron) tablet 325 mg PO DAILY 30 Days Qty: 30 3RF atorvastatin 80 mg tablet 80 mg PO BEDTIME 90 Days Qty: 90 1RF memantine 10 mg tablet 10 mg PO BID MDD 20mg 90 Days Qty: 180 6RF Rx Instructions: 1, 10mg tablet in the morning and 1, 10mg tablet in the evening daily. losartan 100 mg tablet 100 mg PO DAILY 90 Days Qty: 90 1RF sennosides [senna] 8.6 mg tablet 8.6 mg PO BEDTIME PRN (Reason: constipation) 30 Days Qty: 30 6RF cholecalciferol (vitamin D3) 25 mcg (1,000 unit) tablet 25 mcg PO DAILY Qty: 90 0RF oxycodone 5 mg tablet 5 mg PO BID 30 Days Qty: 60 0RF Rx Instructions: Partial Fill upon patient request. furosemide 40 mg tablet 40 mg PO DAILY 90 Days Qty: 90 1RF olopatadine 0.1 % drops 1 drp ophthalmic (eye) DAILY trazodone 150 mg tablet 150 mg PO BEDTIME acetaminophen [Tylenol] 325 mg tablet 325 mg PO BID PRN (Reason: Pain) omega-3 fatty acids 1,000 mg capsule 1,000 mg PO DAILY [id number]-[id number]-zelucg Tablet 1 tab PO DAILY sertraline 100 mg tablet 200 mg PO DAILY Rx Instructions: 1 and 1/2 tabs daily polyethylene glycol 3350 17 gram/dose powder 17 g PO DAILY 30 Days Qty: 510 6RF epinephrine 0.3 mg/0.3 mL auto-injector 0.3 ml IM DAILY PRN (Reason: Allergic Reaction) mometasone 0.1 % cream 1 appl topical DAILY PRN (Reason: Rash) cetirizine 10 mg tablet 10 mg PO DAILY magnesium citrate Solution 296 ml PO ONCE Qty: 296 1RF Rx Instructions: Drink one bottle at 17:00 and 2nd bottle at 22:00 Referrals: Kathy Quintero MD [Primary Care Provider, Internal Medicine] Print Language: Cook Islander
--- NOTE | 2025-05-14 11:37 | ECG_ITS ---
Test Reason : FALL Blood Pressure : */* mmHG Vent. Rate : 71 BPM Atrial Rate : 71 BPM P-R Int : 244 ms QRS Dur : 80 ms QT Int : 404 ms P-R-T Axes : 52 4 8 degrees QTcB Int : 439 ms Sinus rhythm with 1st degree A-V block Otherwise normal ECG When compared with ECG of 25-Sep-2023 08:58, No significant change was found Referred By: Rodney Becerra Electronically Signed By: JENNIE MANNING MD
[2025-05-14 12:05] LABS: Hematocrit 36.9 % (37.0-47.0); Hemoglobin 11.4 g/dl (12.0-16.0); Imm Gran Abs Auto 0.01 X10*3/uL (0.00-0.03); Imm Gran Pct Auto 0.2 % (0.0-0.4); Lymphocytes Absolute Auto 1.2 X10*3/uL (1.2-4.9); MANUAL DIFF FLAG NO; Mean Corpuscular HGB Conc 30.9 g/dl (31.0-35.0); Mean Corpuscular Hemoglobin 30.0 pg (27.0-33.0); Mean Corpuscular Volume 97.1 fL (80.0-98.0); NRBC Abs Auto 0.000 X10*3/uL (0.0-0.012); NRBC Pct Auto 0.0 /100WBC (0.0-0.2); Platelet Count 144 X10*3/uL (160-400); Red Blood Count 3.80 X10*6/uL (4.20-5.50); White Blood Count 5.2 X10*3/uL (4.8-10.8)
[2025-05-14 12:19] LABS: Alanine Aminotransferase 15 U/L (0-31); Albumin Level 4.3 g/dL (3.5-5.0); Alkaline Phosphatase 63 U/L (39-117); Anion Gap 11 (12-20); Aspartate Amino Transferase 20 U/L (5-31); Blood Urea Nitrogen 21 mg/dL (9-16); Calcium 9.1 mg/dL (8.4-10.2); Carbon Dioxide 28 mmol/L (22-29); Chloride 106 mmol/L (96-108); Creatinine Clr Calc Pharmacy 50.0; Estimated Glomerular Filt Rate 55; Lipase 14 U/L (8-78); Potassium 3.8 mmol/L (3.3-5.1); Sodium 141 mmol/L (135-145); Total Protein 6.9 g/dL (6.5-8.0)
[2025-05-14 12:27] LABS: Troponin-I High Sensitivity 14.3 ng/L (<3.5-17.0)
[2025-05-14 13:38] LABS: Appearance Urine Clear; Glucose Urine UA Negative (Negative); PH 6.0 (5.0-9.0); Specific Gravity - Urine 1.010 (1.005-1.025); UMIC TRIGGER UACC YES
[2025-05-14 14:13] VITALS: BP 164/84; PULSE 81; RESP 18; TEMP 36.6; O2SAT 98
[2025-05-14 14:16] VITALS: BP 164/84; PULSE 81; RESP 18; TEMP 36.6; O2SAT 98
== END 2025-05-14 14:16 | disposition home or self-care (01) ==
PROVIDERS: Emergency Provider Emergency Medicine; PCP Internal Medicine
DX: S09.90XA Unspecified injury of head, initial encounter (principal); R51.9 Headache, unspecified; M54.2 Cervicalgia; I44.0 Atrioventricular block, first degree; X58.XXXA Exposure to other specified factors, initial encounter; W18.30XA Fall on same level, unspecified, initial encounter; Z91.81 History of falling; Y93.9 Activity, unspecified; Y92.9 Unspecified place or not applicable; Y99.9 Unspecified external cause status; Z79.899 Other long term (current) drug therapy
CPT/HCPCS: 36415; 70450; 72125; 80048; 80076; 81001; 82550; 83690; 84484; 85025; 93005; 99284

== ENCOUNTER → 2025-05-14 11:36 | Outpatient (BNV) | payer OTHER, SELFPAY | PROVIDERS: Emergency Provider Emergency Medicine; PCP Internal Medicine; Visit Provider Radiology Diagnostic Radiology | DX: E04.1 Nontoxic single thyroid nodule (principal); I67.82 Cerebral ischemia; R90.89 Other abnormal findings on diagnostic imaging of central nervous system | CPT/HCPCS: 70450; 72125 ==

== ENCOUNTER → 2025-05-14 11:37 | Outpatient (BNV) | payer OTHER, SELFPAY | PROVIDERS: Emergency Provider Emergency Medicine; PCP Internal Medicine; Visit Provider Internal Medicine Cardiovascular Disease | DX: I44.0 Atrioventricular block, first degree (principal) | CPT/HCPCS: 93010 ==

== ENCOUNTER 2025-05-20 10:20 | Outpatient (AMB) | payer OTHER, SELFPAY ==
--- NOTE | 2025-05-20 10:33 | A.OFFPC_ITS ---
Vital Signs 05/20/25 10:37 Height 5 ft 2 in Weight 220 lb 8 oz BMI 40.3 BP 142/90 H Blood Pressure Location Lt brachial Position Sitting Pulse 71 Pulse Source Pulse Oximeter Temp 97.1 F Temp Source Temporal Artery Scan Pulse Oximetry (%) 96 Oxygen Delivery Method Room Air Intake Visit Reasons: [facility] 05/14 Fall Intake Note: Patient is here to follow-up after a visit the emergency department at [facility] on 05/14/25 Tangled Yarn Spool Straightener Required: Yes Tangled Yarn Spool Straightener Language: Regional Clinical Research Associate Name: Zaida (daughter/HOME CARE MANAGER RN) Information Interpreted: non-clinical & clinical (Pt decline habilitation assistant service prefer daughter to translate for her) Director Of Cardiac Cath Lab: Present Accompanied by: Daughter Allergies cat dander (CAT DANDER) Allergy (Intermediate, Verified 05/20/25 10:36) skin rash mite-Dermatophagoides farinae, skyla (DUST MITES) Allergy (Intermediate, Verified 05/20/25 10:36) watery itchy eyes, sneezing Tobacco use date assessed: 05/20/25 Fall risk assessment: 1 Fall in past year Last assessed Fall Risk: 05/20/25 Dental Screening Dental Screen Date: 04/12/25 HPI HPI Comments History of Present Illness Details 79 y/o Female patient who presents to [facility] for EDF. Pt was admitted at [facility] on 05/14 for an evaluation after a mechanical Fall at home. Pt was trying to get out of Bed, when she slid down to the ground and landed on her Back/Buttocks. Today Pt is accompanied by her daughter who offers history - denies any pain curretly. She does take routine Opioids for chronic pain. [facility] Medical History Dementia Multinodular goiter HX: breast cancer Thyroid disease Depression Obesity (BMI 30-39.9) Vitamin D deficiency Migraine GERD without esophagitis Anemia Asthma Pure hypercholesterolemia Environmental allergies Venous (peripheral) insufficiency Complex renal cyst Gall stones Mild major depression Dyslipidemia Tremor of left hand Invasive ductal carcinoma of left breast Non-toxic multinodular goiter Lumbar degenerative disc disease Renal calculi Insomnia Constipation due to opioid therapy Essential hypertension Surgical History History of left cataract surgery Hx of varicose vein stripping Hx of cystoscopy Hx of biopsy H/O colonoscopy Hx of dilation and curettage History of esophagogastroduodenoscopy (EGD) Hx of hand surgery History of lumpectomy of left breast History of lithotripsy History of left knee replacement History of section Family History Father Medical history unknown Mother Lung cancer Colon cancer Social History Household Members: None Household Members Other:: daughter Noa Housing: Apartment Are you a primary animal care service worker to a significant other at home: No Do you presently have visiting nurse or other home services: Yes (daughter HOME CARE MANAGER RN 24/7) Alcohol intake: never Patient Tobacco Use Status: Never used Tobacco e-Cigarette/Vaping Use: Never Used Second Hand Smoke Exposure: No Advance Directives Date on File: 11/12/17 service: No 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al status: unemployed and disabled 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 3. Trouble falling or staying asleep, or sleeping too much: not at all 4. Feeling tired or having little energy: several days 5. Poor appetite or overeating: several days 6. Feeling bad about yourself - or that you are a failure or have let yourself or your family down: several days 7. Trouble concentrating on things, such as reading the newspaper or watching television: nearly every day 8. Moving or speaking so slowly that other people could have noticed. Or the opposite - being so fidgety or restless that you have been moving around a lot more than usual: more than half the days 9. Thoughts that you would be better off or of hurting yourself in some way: several days Depression Screening Interpretation: Positive Depression Screening Done: Yes Source: Developed by Drs. Vishal Gonsales, Dione Horn, Eduar Steel and colleagues, with an educational josé miguel from [employer]. Thrive Questionnaire Date Thrive assessed: 04/12/25 I am a: Patient What is your living situation today?: I have a steady place to live Within the past 12 months, did the food you bought not last and you didn't have the money to get more?: Never true Within the past 12 months, did you worry whether your food would run out before you got money to buy more?: Never true Do you have trouble paying for medicines?: No Do you have trouble getting transportation to medical appointments?: No Do you have trouble paying your heating and electricity bill?: No Do you have trouble taking care of your child, family member or friend?: No Do you have trouble with day-to-day activities such as bathing, preparing meals, shopping, managing finances, etc.?: Yes Are you currently unemployed and looking for a job?: No Are you interested in more education?: No Please select the resources that you would like help with: None Currently or been in a relationship where the following occur: No concerns reported THRIVE Score: 0 AUDIT C Alcohol Use Questionnaire (AUDIT-C) 1. How often do you have a drink containing alcohol?: Never Total Score: 0 SHAMIR-7 AMB Questionnaire SHAMIR-7 Date SHAMIR - 7 assessed: 04/12/25 Feeling nervous, anxious, or on edge: 1 = Several days Not being able to stop or control worryin = Several days Worrying too much about different things: 1 = Several days Trouble relaxin = Several days Being so restless that it is hard to sit still: 0 = Not at all Becoming easily annoyed or irritable: 1 = Several days Feeling afraid as if something awful might happen: 0 = Not at all Total SHAMIR-7 score (0-4 normal; 5-9 mild; 10-14 moderate; 15-21 severe): 5 Source: Developed by Drs. Vishal Gonsales, Dione Horn, Eduar Steel and colleagues, with an educational josé miguel from [employer]. Review of Systems Const All systems reviewed & are unremarkable except as noted in HPI and below Physical exam (Primary Care) Vital Signs: Last Vital Signs Temp 97.1 F 05/20/25 10:37 Pulse 71 05/20/25 10:37 BP 142/90 H 05/20/25 10:37 Pulse Ox 96 05/20/25 10:37 Oxygen Delivery Method Room Air 05/20/25 10:37 BMI result Body Mass Index 40.3 Tobacco/Smoking Status: Tobacco use Status Tobacco use date assessed 05/20/25 05/20/25 10:43 Patient Tobacco Use Status Never used Tobacco 05/20/25 10:34 e-Cigarette/Vaping Use Never Used 05/20/25 10:34 Depression Screening Interpretation: Positive Thrive Assessment: Date of Thrive Assessment Date Thrive assessed 04/12/25 05/20/25 10:34 Currently or been in a relationship where the following occur: No concerns reported Const General: no acute distress Nutritional Appearance: obese morbidly obese Orientation/consciousness: patient oriented x3 Limitations: language barrier and ambulation with walker Resp Effort & Inspection: normal respiratory effort Cardio Rhythm: regular rhythm Back/Spine/Pelvis Thoracic/Lumbar Spine: lumbar spinal tenderness Pelvis: buttock tenderness bilaterally Neuro General: patient oriented x3 and moves all extremities Psych Speech and movement: Normal speech and movement present Coding Level of Care Code Est Pt Level 4 (01625) Diagnoses Accident due to mechanical fall without injury, initial encounter W19.XXXA Encounter type: initial encounter Time Spent (min) 20 Assessment & Plan Assessment & Plan (1) Accident due to mechanical fall without injury: Code(s): W19.XXXA - Unspecified fall, initial encounter Category: Medical Qualifiers: Encounter type: initial encounter Qualified Code(s): W19.XXXA - Unspecified fall, initial encounter Plan: Pt has no complains today. She continues to take her pain medications PRN.
[2025-05-20 10:37] VITALS: BP 142/90; PULSE 71; TEMP 36.2; O2SAT 96; BMI 40.3
--- OUTSIDE RECORDS SUMMARY | 2025-05-20 12:18 | XMS_ITS | Encounter Summary ---
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 Jack at 9:25 on 04/06/25. 04/06/2025 9:29 AM EDT [facility] Clinical Information 4mm clean mass right lingual mandible (subperiostea l) ? mucocele 04/06/2025 9:29 AM EDT [facility] Gross Description A. 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
--- OUTSIDE RECORDS SUMMARY | 2025-05-20 12:18 | XMS_ITS | Patient Health Record ---
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 Plan Of Treatment Pending Test Test Name Order Date X ray : Foot, left 2V 08/30/2019 Insurance Providers Payer Name Payer Address Payer Phone Subscriber Number Group Number Insured Name Patient Relationship to Insured Coverage Start Date Coverage End Date [id number] [address] [address] [place] [address] [id number] Estefany Garcia Self - patient is the insured Medical (General) History Medical History History ICD Code Arthritis asthma Back,Hip,and Knee pain Cancer Depression Diverticulosis Gall bladder problems High blood pressure Osteoporosis thyroid Surgical History Surgery Date(Month/Year) knee replacement 2007 gall bladder 2001 breast cancer 2017
--- OUTSIDE RECORDS SUMMARY | 2025-05-20 12:18 | XMS_ITS | Encounter Summary ---
Author Organization [employer] Address [address] [place] [address] [address] [place] [address] Care Team Providers Care Tool Honing Machine Set Up Operator Name Role Phone Unavailable Primary Care Provider Unavailabl e Encounter Details Date Type Department Care Team (Late st Contact Info) Description 04/07/2025 Orders Only [facility] [address] [place] [address] Provider, MD Anushka Social History Tobacco Use [...]
--- OUTSIDE RECORDS SUMMARY | 2025-05-20 12:18 | XMS_ITS ---
Author Name Diana Lopez NP Address [address] [place] [address] Phone [phone] [facility] Care Team Providers Care Cleaning Professional Name Role Phone Diana Lopez Unavailable [phone] MELL SMITH Unavailable [phone] Reason for Referral Not Available Allergies, adverse [...] FOR 7 DAYS 2022-03-29 No Data Available [id number] Suspension SHAKE LIQUID AND INSTILL 4 DROPPERFUL [...] follow up with PCP as scheduled.03/07/25:-daughter is BRAND MANAGER and assists members with ADLs/iADLs-needs new shower chair- CSS task placed today-verified with CSS that raised toilet seat with side railing is considered a home modification and would need to go through [employer]/[facility] directly. SMS sent to member's daughter informing of this. Encounters Encounters Type Facility Date of Service Diagnosis/Co mplaint No Data Available [facility] [place]2022 Gastritis, unspecified, with out bleeding Pain Assessment - Pain Documented on a Pain Scale (1125F) [facility] [place]20[place] Pain Assessment - Pain Documented on a Pain Scale (1125F) [facility] [place]20[place] Pain Assessment - Pain Documented on a Pain Scale (1125F) [facility] [place]20[place] Pain Assessment - Pain Documented on a Pain Scale (1125F) [facility] [place]2022 Pain Assessment - Pain Documented on a Pain Scale (1125F) [facility] [place]2022 Pain Assessment - Pain Documented on a Pain Scale (1125F) [facility] [place]2022 Pain Assessment - Pain Documented on a Pain Scale (1125F) [facility] [place]2022 Pain Assessment - Pain Documented on a Pain Scale (1125F) [facility] [place]2022 Pain Assessment - Pain Documented on a Pain Scale (1125F) [facility] [place]2022 Chronic obstructive pulmonar [...] (do not use for phone, instead use 76473-82) [facility] ([place]) 09/23/2022 Chronic obstructive pulmonar y disease, unspecifiedBody [...] (do not use for phone, instead use 48504-19) [facility] [place]20[place] Estab. patient 30-39min; chronic exacerbation, 2 stable chronic or 1 acute illness add add modifier 95 for video, (do not use for phone, instead use 58948-09) [facility] [place]20[place] Estab. patient 30-39min; chronic exacerbation, 2 stable chronic or 1 acute illness add add modifier 95 for video, (do not use for phone, instead use 71237-77) [facility] [place]20[place] Estab. patient 30-39min; chronic exacerbation, 2 stable chronic or 1 acute illness add add modifier 95 for video, (do not use for phone, instead use 74770-51) [facility] [place]20[place] Estab. patient 30-39min; chronic exacerbation, 2 stable chronic or 1 acute illness add add modifier 95 for video, (do not use for phone, instead use 79038-24) [facility] [place]2022 Estab. patient 30-39min; chronic exacerbation, 2 stable chronic or 1 acute illness add add modifier 95 for video, (do not use for phone, instead use 98860-60) [facility] [place]/2022 Estab. patient 30-39min; chronic exacerbation, 2 stable chronic or 1 acute illness add add modifier 95 for video, (do not use for phone, instead use 42228-95) [facility] ([place] 09[place]23/2022 Estab. patient 30-39min; chronic exacerbation, 2 stable chronic or 1 acute illness add add modifier 95 for video, (do not use for phone, instead use 60554-83) [facility] [place] 09[place]23/2022 Estab. patient 30-39min; chronic exacerbation, 2 stable chronic or 1 acute illness add add modifier 95 for video, (do not use for phone, instead use 14254-54) [facility] ([place] 11/28/2023 Morbid (severe) obesity due to excess [...] (do not use for phone, instead use 27818-42) [facility] [place]/2023 Estab. patient 30-39min; chronic exacerbation, 2 stable chronic or 1 acute illness add add modifier 95 for video, (do not use for phone, instead use 75178-75) [facility] [place]28/2023 Estab. patient 30-39min; chronic exacerbation, 2 stable chronic or 1 acute illness add add modifier 95 for video, (do not use for phone, instead use 20719-25) [facility] ([place]28/2023 Estab. patient 30-39min; chronic exacerbation, 2 stable chronic or 1 acute illness add add modifier 95 for video, (do not use for phone, instead use 98777-25) [facility] [place]/2023 Estab. patient 30-39min; chronic exacerbation, 2 stable chronic or 1 acute illness add add modifier 95 for video, (do not use for phone, instead use 55595-93) [facility] [place]/2023 Estab. patient 30-39min; chronic exacerbation, 2 stable chronic or 1 acute illness add add modifier 95 for video, (do not use for phone, instead use 92093-38) [facility] [place]/2023 Estab. patient 30-39min; chronic exacerbation, 2 stable chronic or 1 acute illness add add modifier 95 for video, (do not use for phone, instead use 23017-48) [facility] [place]/2023 Estab. patient 30-39min; chronic exacerbation, 2 stable chronic or 1 acute illness add add modifier 95 for video, (do not use for phone, instead use 96605-99) [facility] [place]/2023 Estab. patient 20-29min; 1 stable chronic or 2 minor; add add modifier 95 for video, modifier 93 for phone [facility] [place]/2024 Morbid (severe) obesity due to excess caloriesSevere persistent asthma, uncomplicatedChronic obstructive pulmonary disease, unspecifiedMajor depressive disorder, recurrent, moderateUnspecified dementia without behavioral disturbanceHyperlipidemia, unspecifiedNeuralgia and neuritis, unspecifiedEssential (primary) hypertensionOther problems related to medical facilities and other health carePersonal history of malignant neoplasm of breast Estab. patient 20-29min; 1 stable chronic or 2 minor; add add modifier 95 for video, modifier 93 for phone [facility] [place] 08/31/2024 Estab. patient 20-29min; 1 stable chronic or 2 minor; add add modifier 95 for video, modifier 93 for phone [facility]/20[place] Estab. patient 20-29min; 1 stable chronic or 2 minor; add add modifier 95 for video, modifier 93 for phone [facility] [place] 08/31/2024 Estab. patient 20-29min; 1 stable chronic or 2 minor; add add modifier 95 for video, modifier 93 for phone [facility] [place] 08/31/2024 Estab. patient 20-29min; 1 stable chronic or 2 minor; add add modifier 95 for video, modifier 93 for phone [facility]/20[place] Estab. patient 20-29min; 1 stable chronic or 2 minor; add add modifier 95 for video, modifier 93 for phone [facility]/20[place] Estab. patient 20-29min; 1 stable chronic or 2 minor; add add modifier 95 for video, modifier 93 for phone [facility] [place] 08/[place]/20[place] Estab. patient 10-29min; 1 minor problem; add add modifier 95 for video, modifier 93 for phone [facility] [place] 03/07/2025 Unspecified osteoarthritis, unspecified siteUnsteadiness on [...] Time Current Smoking Status Never smoker 2025-05-04 5 Sex Female History of Procedures Procedures Service Procedure code Service date Servicing provider Phone# No Data Available [id number] 2022-05-20 No Data Available No Data Available [...] (do not use for phone, instead use 93239-31) [id number] 2022-05-23 No Data Available No Data Availa ble Estab. patient 30-39min; chronic exacerbation, 2 stable chronic or 1 acute illness add add modifier 95 for video, (do not use for phone, instead use 22929-43) [id number] 2022-09-23 No Data Available No Data Availa [...] (do not use for phone, instead use 40550-22) [id number] 2023-11-28 No Data Available No Data Availa [...] 95 for video, modifier 93 for phone [id number] 2024-08-31 No Data Available No Data Availa [...] 95 for video, modifier 93 for phone [id number] 2025-03-07 No Data Available No Data Availa [...] follow up with PCP as scheduled.03/07/25:-daughter is BRAND MANAGER and assists members with ADLs/iADLs-needs new shower chair- CSS task placed today-verified with CSS that raised toilet seat with side railing is considered a home modification and would need to go through [employer]/[facility] directly. SMS sent to member's daughter [...] to use it. Daughter, Jessica, is her BRAND MANAGER as well. 2025-03-07 Most recent hospital stay or ER visit:No ER visits or hospitalizations documented in [facility] in 90 days. Member denies ER visits or hospitalizations in last 90 days. 2025-03-07 Open HEDIS Measures: No open measures
--- OUTSIDE RECORDS SUMMARY | 2025-05-20 12:18 | XMS_ITS | Clinical Summary ---
Author Organization [facility] Address [address] [place] [address] Phone Care Team Providers Care Production Artist Name Role Phone Unavailable Primary Care Provider Unavailabl e Encounters Date Type Department Care Team Description 04/05/2025 Lab Requisition [facility] - Main Lab [address] [facility] [place] [address] Peter Jack DMD Benign neoplasm [...] 5 season) 2025 Influenza Vaccine (#1) 2025 Cholesterol Screening (Lipid Panel) 04/05/2025 Falls Risk Assessment 04/05/2025 Medicare Annual Wellness Visit 04/05/2025 Osteoporosis Screening (Bone Density Screening) 04/05/2025 Social Influencers of Health Screening 04/05/2025 Hypertension/CHF/CAD Annual BMP Blood Test 05/16/2025 HIB Vaccines Aged Out No longer eligi [...] excision: Benign simple cyst 04/06/2025 9:29 AM [facility] Comment The findings were discussed with Dr. Jack at 9:25 on 04/06/25. 04/06/2025 9:29 AM [facility] Clinical Information 4mm clean mass right lingual mandible (subperiostea l) ? mucocele 04/06/2025 9:29 AM [facility] Gross Description A. Oral Cavity, [...] cassette, two pieces. KRISTIAN 04/06/2025 9:29 AM [facility] Disclaimer Unless otherwise specified, all tissue is 10% NB formalin fixed and paraffin embedded. 04/06/2025 9:29 AM [facility] [place] ([facility]) [facility] Tissue Oral cavity structure / Unknown 03/30/2025 04/05/2025 7:27 AM EDT Peter Tinocoevelyn DMD LAB PATHOLOGY ORDERABLES Michelle faiza Result [facility] ([facility]) [facility] [address] [place] [address], from Last 3 Months Insurance [id number] [place] [phone] [employer] [place] [address] MEDICAID - [place] [facility]
--- OUTSIDE RECORDS SUMMARY | 2025-05-20 12:18 | XMS_ITS | Clinical Summary ---
Author Organization [employer] Address [address] [place] [address] [address] [place] [address] Care Team Providers Care Bandoleer Packer Name Role Phone Unavailable Primary Care Provider [...] Department Care Team Description 04/07/2025 Orders Only [place] [employer] [facility] [address] [place], [place] [phone] ProviderAnushka MD 04/06/2025 9:00 AM EDT Office Visit [facility] ADULT [facility] [address] [place] [address] Stuart Gonzalez 03/30/2025 9:30 AM EDT Office Visit [facility] ADULT [facility] [address] [place] [address] Peter Jack DMD History of tooth extraction, [...] Relevant to Health Maintenance Insurance DENTAL - [facility]
== END 2025-05-20 10:53 | disposition home or self-care (01) ==
LOC: HO.HMCH 10:21
PROVIDERS: PCP Internal Medicine; Visit Provider Nurse Practitioner Family
DX: Z04.3 Encounter for examination and observation following other accident (principal)

== ENCOUNTER → 2025-05-20 10:20 | Outpatient (BNVA) | payer OTHER, SELFPAY | PROVIDERS: PCP Internal Medicine; Visit Provider Nurse Practitioner Family | DX: G89.29 Other chronic pain (principal); Z79.891 Long term (current) use of opiate analgesic; Z91.81 History of falling | CPT/HCPCS: 96127; 99212 ==

== ENCOUNTER → 2025-06-01 09:43 | Outpatient (REF) | payer OTHER, SELFPAY ==
--- NOTE | 2025-06-01 09:46 | CA_ITS ---
Transthoracic Echocardiogram Patient (Last, First, Middle): Estefany Rowland M Gender: F Date of : 1945 Age: 79 Procedure Date: 06/01/2025 Procedure Type: Transthoracic Echocardiogram Location: OP Height: 157.48 cm Weight: 98.88 kg BSA: 1.98 m2 Heart Rate: bpm BP: 130 / 84 mmHg Food Safety Field Specialist: Referring MD: Kathy Bailon MD Symptoms: I77.810 - Thoracic aortic ectasia Study Quality: Adequate ECG Rhythm: Sinus Conclusions: - The left ventricular systolic function is normal. The visually estimated ejection fraction is between 65-70%. - No obvious valvular pathology seen on this study. - There is mild dilatation of the ascending aorta measuring 4.30 cm. Findings Left Ventricle Normal left ventricular cavity size. There is moderately increased left ventricular wall thickness. The left ventricular systolic function is normal. The visually estimated ejection fraction is between 65-70%. There is no evidence of regional wall motion abnormalities. Diastolic function is normal for age. Right Ventricle Normal right ventricular cavity size and systolic function. Atria The left atrium is mildly dilated. The right atrium is normal in size. Aortic Valve There is a normal trileaflet aortic valve. There is no aortic valve stenosis. There is no aortic valve regurgitation. Mitral Valve The mitral valve appears normal. There is no mitral valve regurgitation. There is no mitral valve stenosis. Pulmonic Valve The pulmonic valve is likely normal. Tricuspid Valve There is trace tricuspid valve regurgitation. There is no evidence of pulmonary hypertension. Great Vessels There is mild dilatation of the ascending aorta measuring 4.30 cm. Venous The inferior vena cava is normal in size and collapses greater than 50% with inspiration. Pericardium/Pleural There is no evidence of pericardial effusion. Prior Study Comparison No significant change compared to prior study dated: 07/10/2023. Recommendations, Care & Conclusions No obvious valvular pathology seen on this study. Measurements 2D Linear Measurements IVSd: 1.37 0.6-0.9/0.6-1.0 cm LVIDd: 3.58 3.9-5.3/4.2-5.9 cm LVIDd Index: 1.81 2.4-3.2/2.2-3.1 cm/m2 LVIDs: 2.33 2.0-3.6 cm LVPWd: 1.24 0.7-1.1 cm LA Diam: 4.40 2.7-3.8/3.0-4.0 cm LAIDs Index: 2.22 1.5-2.3 cm/m2 LV Mass: 198.95 67-162/88-224 g LV Mass Index: 100.48 43-95/49-115 g/m2 LVOT Diam: 2.20 3.0+(-)1.3 cm 2D Systolic Function EF 4C: 69.80 >55% EF 2C: 73.20 >55% EF BiP: 71.60 >55% Mitral Valve MV Pk E: 0.57 MV PK A: 0.72 MV Decel Time: 249.00 E/A: 0.80 E'Lateral: 7.18 E'Medial: 4.03 E/E' Med: 14.20 E/E' Lat: 8.00 PHT: 73.00 MVA PHT: 3.01 Decel [place]: 2.31 Aortic Valve AoV Pk Doug: 1.89 AoV Mn Doug: 1.25 AoV VTI: 0.35 AoV Pk Grad: 14.00 Aov Mn Grad: 8.00 OMAIRA Cont.VTI: 2.73 LVOT LVOT Pk Doug: 1.36 LVOT Mn Doug: 0.83 LVOT VTI: 0.25 LVOT Pk Grad: 7.00 LVOT Mn Grad: 3.00 LVOT Diam: 2.20 LVOT Area: 3.80 Diastolic Function MV Pk E: 0.57 MV Pk A: 0.72 E/A: 0.80 E'Medial: 4.03 E/E' Med: 14.20 E' Laterial: 7.18 E/E' Lat: 8.00 Right Ventricle TAPSE (mm): 31.80 TVS' Doug: 14.60 Tricuspid Valve TR Pk Doug: 2.06 TR Pk Grad: 17.00 Great Vessels Aorta Sinus of Valsalva: 3.20 2.0-3.5 cm Ao Asc: 4.30 2.1-3.4 cm Pulmonary Valve PV Pk Doug: 1.18 Peak PV Grad: 6.00 Updated in Other Vendor System with Status of Final Timmy Sen MD electronically signed on 06/02/2025 11:55:41 AM with status of Final
--- OUTSIDE RECORDS SUMMARY | 2025-06-01 11:37 | XMS_ITS | Patient Health Record ---
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 Plan Of Treatment Pending Test Test Name Order Date X ray : Foot, left 2V 08/30/2019 Insurance Providers Payer Name Payer Address Payer Phone Subscriber Number Group Number Insured Name Patient Relationship to Insured Coverage Start Date Coverage End Date [facility] [address] [address] [place] [address] [id number] DREWEstefany Lindsey Self - patient is the insured Medical (General) History Medical History History ICD Code Arthritis asthma Back,Hip,and Knee pain Cancer Depression Diverticulosis Gall bladder problems High blood pressure Osteoporosis thyroid Surgical History Surgery Date(Month/Year) knee replacement 2007 gall bladder 2001 breast cancer 2017
--- OUTSIDE RECORDS SUMMARY | 2025-06-01 11:37 | XMS_ITS | Clinical Summary ---
Author Organization [address] [facility] Address [address] [place] [address] Phone Care Team Providers Care Perfect Binder Operator Name Role Phone Unavailable Primary Care Provider Unavailabl e Encounters Date Type Department Care Team Description 04/05/2025 Lab Requisition [facility] - Main Lab [address] [facility] [place] [address] Peter Jack DMD Benign neoplasm [...] excision: Benign simple cyst 04/06/2025 9:29 AM [facility] Comment The findings were discussed with Dr. Jack at 9:25 on 04/06/25. 04/06/2025 9:29 AM [facility] Clinical Information 4mm clean mass right lingual mandible (subperiostea l) ? mucocele 04/06/2025 9:29 AM [facility] Gross Description A. Oral [...] cassette, two pieces. KRISTIAN 04/06/2025 9:29 AM [facility] Disclaimer Unless otherwise specified, all tissue is 10% NB formalin fixed and paraffin embedded. 04/06/2025 9:29 AM [facility] [place] ([facility]) [facility] Tissue Oral cavity structure / Unknown 03/30/2025 04/05/2025 7:27 AM EDT Peter Tinocoevelyn DMD LAB PATHOLOGY ORDERABLES Michelle faiza Result [facility] ([facility]) [facility] [address] [place] [address], from Last 3 Months Insurance [address] [place] [id number] [employer] MEDICARE MEDICAID - [place] [facility]
--- OUTSIDE RECORDS SUMMARY | 2025-06-01 11:37 | XMS_ITS | Clinical Summary ---
Author Organization [employer] Address [address] [place] [address] [address] [place] [address] Care Team Providers Care Powder Blender Name Role Phone Unavailable Primary Care Provider [...] Department Care Team Description 04/07/2025 Orders Only [place] [employer] [facility] [address] [place], [place] [phone] ProviderAnushka MD 04/06/2025 9:00 AM EDT [facility] [address] [place] [address] Stuart Gonzalez 03/30/2025 9:30 AM EDT Office Visit [facility] [address] [place] [address] Peter Jack DMD History of tooth extraction, [...] Relevant to Health Maintenance Insurance DENTAL - [facility]
--- OUTSIDE RECORDS SUMMARY | 2025-06-01 11:37 | XMS_ITS | Encounter Summary ---
Author Organization [employer] Address [address] [place] [address] [address] [place] [address] Care Team Providers Care Snowboarder Name Role Phone Unavailable Primary Care Provider Unavailabl e Encounter Details Date Type Department Care Team (Late st Contact Info) Description 04/07/2025 Orders Only [facility] [address] [place] [address] Provider, MD Anushka Social History Tobacco Use [...]
--- OUTSIDE RECORDS SUMMARY | 2025-06-01 11:37 | XMS_ITS | Encounter Summary ---
Author Organization [employer] Address [address] [place] [address] Care Team Providers Care Investigation Manager Name Role Phone Unavailable Primary Care Provider Unavailabl e Encounter Details Date Type Department Care Team (Late st Contact Info) Description 04/05/[address] 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 Jack at 9:25 on 04/06/25. 04/06/2025 9:29 AM EDT [facility] Clinical Information 4mm clean mass right lingual mandible (subperiostea l) ? mucocele 04/06/2025 9:29 AM EDT [facility]) [facility] Gross Description A. Oral [...] two pieces. KRISTIAN 04/06/2025 9:29 AM EDT [facility] Disclaimer Unless otherwise specified, all tissue is 10% NB formalin fixed and paraffin embedded. 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
--- OUTSIDE RECORDS SUMMARY | 2025-06-01 11:37 | XMS_ITS ---
Author Name Diana Lopez NP Address [address] [place] [address] Phone [phone] [facility] Care Team Providers Care Platform Loader Name Role Phone Diana Lopez Unavailable [phone] MELL SMITH Unavailable [phone] Reason for Referral Not Available Allergies, adverse [...] 100 mg Tab take 2 tablet by [facility] daily 2021-10-09 No Data Available Spiriva [...] FOR 7 DAYS 2022-03-29 No Data Available Dyowflhc-Bqxojzpfm-HV [id number] Suspension SHAKE LIQUID AND INSTILL 4 DROPPERFUL [...] follow up with PCP as scheduled.03/07/25:-daughter is BOX TRUCK DRIVER and assists members with ADLs/iADLs-needs new shower chair- CSS task placed today-verified with CSS that raised toilet seat with side railing is considered a home modification and would need to go through porter sample case/[facility] directly. SMS sent to member's daughter informing of this. Encounters Encounters Type Facility Date of Service Diagnosis/Co mplaint No Data Available [facility] [place]2022 Gastritis, unspecified, with out bleeding Pain Assessment - Pain Documented on a Pain Scale (1125F) [facility] [place]20[place] Pain Assessment - Pain Documented on a Pain Scale (1125F) [facility] [place] Pain Assessment - Pain Documented on a Pain Scale (1125F) [facility] [place]2022 Pain Assessment - Pain Documented on a Pain Scale (1125F) [facility] [place]20[place] Pain Assessment - Pain Documented on a Pain Scale (1125F) [facility] [place]2022 Pain Assessment - Pain Documented on a Pain Scale (1125F) [facility] [place]2022 Pain Assessment - Pain Documented on a Pain Scale (1125F) [facility] [place]2022 Pain Assessment - Pain Documented on a Pain Scale (1125F) [facility] [place]2022 Pain Assessment - Pain Documented on a Pain Scale (1125F) [facility] [place]/2022 Chronic obstructive [...] (do not use for phone, instead use 90252-33) [facility] [place]/2022 Chronic obstructive pulmonar y disease, unspecifiedBody [...] (do not use for phone, instead use 09027-89) [facility] Estab. patient 30-39min; chronic exacerbation, 2 stable chronic or 1 acute illness add add modifier 95 for video, (do not use for phone, instead use 50564-86) [facility] Estab. patient 30-39min; chronic exacerbation, 2 stable chronic or 1 acute illness add add modifier 95 for video, (do not use for phone, instead use 89445-29) [facility] Estab. patient 30-39min; chronic exacerbation, 2 stable chronic or 1 acute illness add add modifier 95 for video, (do not use for phone, instead use 49565-58) [facility] Estab. patient 30-39min; chronic exacerbation, 2 stable chronic or 1 acute illness add add modifier 95 for video, (do not use for phone, instead use 90426-88) [facility] [place] Estab. patient 30-39min; chronic exacerbation, 2 stable chronic or 1 acute illness add add modifier 95 for video, (do not use for phone, instead use 18948-87) [facility] [place]20[place] Estab. patient 30-39min; chronic exacerbation, 2 stable chronic or 1 acute illness add add modifier 95 for video, (do not use for phone, instead use 08931-56) [facility] [place]/2022 Estab. patient 30-39min; chronic exacerbation, 2 stable chronic or 1 acute illness add add modifier 95 for video, (do not use for phone, instead use 29012-50) [facility]2022 Estab. patient 30-39min; chronic exacerbation, 2 stable chronic or 1 acute illness add add modifier 95 for video, (do not use for phone, instead use 66920-22) [facility] [place] 11/28/2023 Morbid (severe) obesity due to [...] (do not use for phone, instead use 78298-73) [facility] [place]2023 Estab. patient 30-39min; chronic exacerbation, 2 stable chronic or 1 acute illness add add modifier 95 for video, (do not use for phone, instead use 73923-12) [facility] [place]/2023 Estab. patient 30-39min; chronic exacerbation, 2 stable chronic or 1 acute illness add add modifier 95 for video, (do not use for phone, instead use 37563-22) [facility] [place] 11/28/2023 Estab. patient 30-39min; chronic exacerbation, 2 stable chronic or 1 acute illness add add modifier 95 for video, (do not use for phone, instead use 29281-94) [facility] [place]/2023 Estab. patient 30-39min; chronic exacerbation, 2 stable chronic or 1 acute illness add add modifier 95 for video, (do not use for phone, instead use 77519-76) [facility] [place]/2023 Estab. patient 30-39min; chronic exacerbation, 2 stable chronic or 1 acute illness add add modifier 95 for video, (do not use for phone, instead use 87285-55) [facility] [place]/2023 Estab. patient 30-39min; chronic exacerbation, 2 stable chronic or 1 acute illness add add modifier 95 for video, (do not use for phone, instead use 90382-18) [facility]/2023 Estab. patient 30-39min; chronic exacerbation, 2 stable chronic or 1 acute illness add add modifier 95 for video, (do not use for phone, instead use 54199-09) [facility]/2023 Estab. patient 20-29min; 1 stable chronic or 2 minor; add add modifier 95 for video, modifier 93 for phone [facility] [place]/2024 Morbid (severe) obesity due to [...] 95 for video, modifier 93 for phone [facility] [place]/2024 Estab. patient 20-29min; 1 stable chronic or 2 minor; add add modifier 95 for video, modifier 93 for phone [facility]/31/20[place] Estab. patient 20-29min; 1 stable chronic or 2 minor; add add modifier 95 for video, modifier 93 for phone [facility] 08/31/2024 Estab. patient 20-29min; 1 stable chronic or 2 minor; add add modifier 95 for video, modifier 93 for phone [facility] 08/31/2024 Estab. patient 20-29min; 1 stable chronic or 2 minor; add add modifier 95 for video, modifier 93 for phone [facility] 08[place]/2024 Estab. patient 20-29min; 1 stable chronic or 2 minor; add add modifier 95 for video, modifier 93 for phone [facility] 08/[place]/2024 Estab. patient 20-29min; 1 stable chronic or 2 minor; add add modifier 95 for video, modifier 93 for phone [facility] 08/[place]/2024 Estab. patient 10-29min; 1 minor problem; add add modifier 95 for video, modifier 93 for phone [facility] 03/07/2025 Unspecified osteoarthritis, unspecified [...] tive Time Current Smoking Status Never smoker 2025-05-05 7 Sex Female History of Procedures Procedures Service Procedure code Service date Servicing provider Phone# No Data Available [id number] 2022-05-20 No Data Available No Data Available [...] (do not use for phone, instead use 39287-90) [id number] 2022-05-23 No Data Available No Data Availa ble Estab. patient 30-39min; chronic exacerbation, 2 stable chronic or 1 acute illness add add modifier 95 for video, (do not use for phone, instead use 49997-13) [id number] 2022-09-23 No Data Available No Data Availa [...] (do not use for phone, instead use 18080-66) [id number] 2023-11-28 No Data Available No Data Availa [...] 95 for video, modifier 93 for phone 90994 2024-08-31 No Data Available No Data Availa [...] 95 for video, modifier 93 for phone [id number] 2025-03-07 No Data Available No Data Availa ble Functional Status Functional Category Effective Dates Cognition Status: Oriented to Person, Pl lgoria and Time 2022-05-23 ADL Eating: Independent; Amb [...] follow up with PCP as scheduled.03/07/25:-daughter is BOX TRUCK DRIVER and assists members with ADLs/iADLs-needs new shower chair- CSS task placed today-verified with CSS that raised toilet seat with side railing is considered a home modification and would need to go through porter sample case/[facility] directly. SMS sent to member's daughter [...] to use it. Daughter, Jessica, is her BOX TRUCK DRIVER as well. 2025-03-07 Most recent hospital stay or ER visit:No ER visits or hospitalizations documented in [facility] in 90 days. Member denies ER visits or hospitalizations in last 90 days. 2025-03-07 Open HEDIS Measures: No open measures
== END ==
LOC: HO.CARD 09:43
PROVIDERS: PCP Internal Medicine; Visit Provider Internal Medicine
DX: I77.810 Thoracic aortic ectasia (principal)
CPT/HCPCS: 93306

== ENCOUNTER → 2025-06-01 09:46 | Outpatient (BNV) | payer OTHER, SELFPAY | PROVIDERS: PCP Internal Medicine; Visit Provider Internal Medicine | DX: I51.7 Cardiomegaly (principal); I71.21 Aneurysm of the ascending aorta, without rupture | CPT/HCPCS: 93306 ==

== ENCOUNTER 2025-06-15 10:35 | Outpatient (AMB) | payer OTHER, SELFPAY ==
[2025-06-15 11:26] VITALS: BP 150/70; PULSE 67; RESP 18; O2SAT 93; BMI 40.5
--- NOTE | 2025-06-15 11:26 | A.OFFPC_ITS ---
Vital Signs 06/15/25 11:26 Height 5 ft 2 in Weight 221 lb 6 oz BMI 40.5 BP 150/70 H Blood Pressure Location Lt brachial Position Sitting Respiration 18 Pulse 67 Pulse Source Pulse Oximeter Temp Source Temporal Artery Scan Pulse Oximetry (%) 93 Oxygen Delivery Method Room Air Intake Visit Reasons: annual exam Tactical Intelligence Officer Required: No Accompanied by: Self / Same As Patient Allergies cat dander (CAT DANDER) Allergy (Intermediate, Verified 06/15/25 11:39) skin rash mite-Dermatophagoides farinae, skyla (DUST MITES) Allergy (Intermediate, Verified 06/15/25 11:39) watery itchy eyes, sneezing Medication List - Last Reconciled 06/15/25 by Kathy Bailon MD acetaminophen (Tylenol) 325 mg PO BID PRN albuterol sulfate 90 mcg/actuation 1 - 2 puffs PO Q4-6H PRN 30 days amlodipine 5 mg PO DAILY aspirin 81 mg PO DAILY 90 days atorvastatin 80 mg PO BEDTIME 90 days cetirizine 10 mg PO DAILY cholecalciferol (vitamin D3) 25 mcg PO DAILY epinephrine 0.3 mL IM DAILY PRN ferrous sulfate (Iron (ferrous sulfate)) 325 mg PO DAILY 30 days furosemide 40 mg PO DAILY 90 days losartan 100 mg PO DAILY 90 days magnesium citrate 296 mL PO ONCE memantine 10 mg PO BID 90 days MDD 20mg mometasone 0.1% 1 appl topical DAILY PRN wogokrsizxsg-wxfgehyp-nphbkd 1 tab PO DAILY nystatin 1 appl topical DAILY PRN 30 days olopatadine 0.1% 1 drp ophthalmic (eye) DAILY omega-3 fatty acids 1,000 mg PO DAILY omeprazole 20 mg PO DAILY 90 days oxycodone 5 mg PO BID 30 days polyethylene glycol 3350 17 grams PO DAILY 30 days sennosides (senna) 8.6 mg PO BEDTIME PRN 30 days sertraline 200 mg PO DAILY sumatriptan succinate 25 mg PO Q2-4H PRN 30 days trazodone 150 mg PO BEDTIME walker with wheels Tobacco use date assessed: 05/20/25 Fall risk assessment: 1 Fall in past year Last assessed Fall Risk: 06/15/25 Dental Screening Dental Screen Date: 06/15/25 Did you have a dental visit in the last 12 months?: No Did you have a dental problem in the last 6 months where you did not have access to dental care?: No Was dental information given to patient?: No HPI HPI Comments History of Present Illness Details The patient is an 79-year-old female presenting for her physical exam. She is morbidly obese with a BMI of 40.5 and was advised to do diet and exercise to reach BMI goal less than 30. Her current medications include Tylenol, amlodipine 5 mg, aspirin 81 mg, atorvastatin 80 mg for cholesterol, cetirizine for allergies, vitamin D, an iron supplement once daily, furosemide, losartan for blood pressure, magnesium, and memantine for memory. She also takes omega-3, omeprazole for acid reflux, oxycodone for chronic back pain, MiraLAX and senna for constipation, sertraline for depression with anxiety, sumatriptan, pomegranate, and trazodone for sleep. Recent laboratory results showed good renal function, a glucose level of 92, normal iron levels, good liver function, and well-controlled cholesterol. She completed a mammogram at the beginning of this year. There was a recent incident where she slipped down from the bed. Walks with a walker for gait stability. - Mammogram: Patient completed a mammogr am at the beginning of the year. - Colonoscopy done this year showing tub ular adenoma. - Laboratory Monitoring: Recent lab resu lts showed good renal and liver function , normal iron, glucose of 92, and good cholesterol levels. - Had influenza vaccine and PCV 21 this year. [facility] Medical History Dementia Multinodular goiter HX: breast cancer Thyroid disease Depression Obesity (BMI 30-39.9) Vitamin D deficiency Migraine GERD without esophagitis Anemia Asthma Pure hypercholesterolemia Environmental allergies Venous (peripheral) insufficiency Complex renal cyst Gall stones Mild major depression Dyslipidemia Tremor of left hand Invasive ductal carcinoma of left breast Non-toxic multinodular goiter Lumbar degenerative disc disease Renal calculi Insomnia Constipation due to opioid therapy Essential hypertension Surgical History History of left cataract surgery Hx of varicose vein stripping Hx of cystoscopy Hx of biopsy H/O colonoscopy Hx of dilation and curettage History of esophagogastroduodenoscopy (EGD) Hx of hand surgery History of lumpectomy of left breast History of lithotripsy History of left knee replacement History of section Family History Father Medical history unknown Mother Lung cancer Colon cancer Social History Household Members: None Household Members Other:: daughter Noa Housing: Apartment Are you a primary pharmacist critical care to a significant other at home: No Do you presently have visiting nurse or other home services: Yes (daughter [employer] STOCK CLERK 24/7) Alcohol intake: never Patient Tobacco Use Status: Never used Tobacco e-Cigarette/Vaping Use: Never Used Second Hand Smoke Exposure: No Advance Directives Date on File: 11/12/17 service: No 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al status: unemployed and disabled 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 Cognitive needs: Yes (cane, walker) Hearing needs: No Vision needs: Yes Questionnaire Thrive Questionnaire Date Thrive assessed: 05/20/25 I am a: Patient What is your living situation today?: I have a steady place to live Within the past 12 months, did the food you bought not last and you didn't have the money to get more?: Never true Within the past 12 months, did you worry whether your food would run out before you got money to buy more?: Never true Do you have trouble paying for medicines?: No Do you have trouble getting transportation to medical appointments?: No Do you have trouble paying your heating and electricity bill?: No Do you have trouble taking care of your child, family member or friend?: No Do you have trouble with day-to-day activities such as bathing, preparing meals, shopping, managing finances, etc.?: Yes Are you currently unemployed and looking for a job?: No Are you interested in more education?: No Please select the resources that you would like help with: None Currently or been in a relationship where the following occur: No concerns reported THRIVE Score: 0 SHAMIR-7 AMB Questionnaire SHAMIR-7 Date SHAMIR - 7 assessed: 04/12/25 Source: Developed by Drs. Vishal Gonsales, Dione Horn, Eduar Steel and colleagues, with an educational josé miguel from [facility]. Review of Systems Const All systems reviewed & are unremarkable except as noted in HPI and below Card Denies chest pain at rest, Denies chest pain with activity, Denies edema, Denies irregular heart rhythm, Denies claudication, Denies dyspnea, Denies dyspnea on exertion, Denies orthopnea, Denies paroxysmal nocturnal dyspnea and Denies slow heart rate Resp Denies cough, Denies dyspnea and Denies dyspnea on exertion Physical exam (Primary Care) Vital Signs: Last Vital Signs Pulse 67 06/15/25 11:26 Resp 18 06/15/25 11:26 BP 150/70 H 06/15/25 11:26 Pulse Ox 93 06/15/25 11:26 Oxygen Delivery Method Room Air 06/15/25 11:26 BMI result Body Mass Index 40.5 Tobacco/Smoking Status: Tobacco use Status Tobacco use date assessed 05/20/25 06/15/25 11:28 Patient Tobacco Use Status Never used Tobacco 06/15/25 11:28 e-Cigarette/Vaping Use Never Used 06/15/25 11:28 Thrive Assessment: Date of Thrive Assessment Date Thrive assessed 05/20/25 06/15/25 11:28 Currently or been in a relationship where the following occur: No concerns reported [facility] Head: Yes normal to inspection, Yes normocephalic and Yes atraumatic Ears: external ears normal Eyes General: appearance normal, both eyes and all related structures Eyelids: Yes eyelids normal Conjunctivae: conjunctivae normal Neck Neck: Yes normal visual inspection and Yes supple Resp Effort & Inspection: normal respiratory effort Auscultation: clear to auscultation bilaterally Cardio Jugular venous distension: no JVD Rate: regular rate Rhythm: regular rhythm Heart sounds: S1 normal heart sound present and S2 normal heart sound present GI Inspection: Yes normal to inspection Palpation (GI): Soft to palpation and nontender Auscultation: normal bowel sounds Skin General skin exam: no rashes or lesions noted Neuro General: no focal motor deficits Extrem General: Yes full ROM Psych Appearance: grossly normal Coding Level of Care Code Est Pt Prev Care 40-64y(53915) Diagnoses Physical exam Z00.00 Moderate Alzheimer's dementia, unspecified timing of dementia onset, unspecified whether behavioral, psychotic, or mood disturbance or anxiety G30.9; F02.B0 Dementia type: Alzheimer's Alzheimer's disease onset: unspecified onset Dementia severity: moderate Dementia behavioral or psychological symptom: unspecified whether b ehavioral, psychotic, or mood disturbance or anxiety Mild major depression F32.0 Time Spent (min) 30 Assessment & Plan Assessment & Plan (1) Physical exam: Code(s): Z00.00 - Encounter for general adult medical examination without abnormal findings Category: Medical (2) Dementia: Comment: Alzheimers vs Mixed Code(s): F03.90 - Unspecified dementia, unspecified severity, without behavioral disturbance, psychotic disturbance, mood disturbance, and anxiety Category: Medical Qualifiers: Dementia type: Alzheimer's Alzheimer's disease onset: unspecified onset Dementia severity: moderate Dementia behavioral or psychological symptom: unspecified whether behavioral, psychotic, or mood disturbance or anxiety Qualified Code(s): G30.9 - Alzheimer's disease, unspecified; F02.B0 - Dementia in other diseases classified elsewhere, moderate, without behavioral disturbance, psychotic disturbance, mood disturbance, and anxiety (3) Mild major depression: Code(s): F32.0 - Major depressive disorder, single episode, mild Category: Medical Plan Plan 1. Physical exam Repeat in a year. 2. Dementia Continue memantine. 3. Mild major depression Continue sertraline. Orders: Orders UA CC w/rflx Micro + Cult Today R30.0 - Dysuria Medications: Refilled amlodipine 5 mg PO DAILY 90 tabs 0RF
--- OUTSIDE RECORDS SUMMARY | 2025-06-15 12:44 | XMS_ITS | Patient Health Record ---
[facility] Address [address] [place] [address] Care Team Providers Care Business Analytics Director Name Role Phone Nichole HERMAN, Kathy Primary [...] day; Duration: 30 day(s) Active Aspir-81 Active [place] 3 1000 MG 1 capsule Orally Onc [...] Status Risk Notes Problem Acquired hallux valgus (81875490) Acquired hallux interphalangeus of left foot (M20.12) Active confirmed Plan Of Treatment Pending Test Test Name Order Date X ray : Foot, left 2V 08/30/2019 Insurance Providers Payer Name Payer Address Payer Phone Subscriber Number Group Number Insured Name Patient Relationship to Insured Coverage Start Date Coverage End Date [facility] [address] [place] [address] [id number] DREWEstefany Lindsey Self - patient is the insured Medical (General) History Medical History History ICD Code Arthritis asthma Back,Hip,and Knee pain Cancer Depression Diverticulosis Gall bladder problems High blood pressure Osteoporosis thyroid Surgical History Surgery Date(Month/Year) knee replacement 2007 gall bladder 2001 breast cancer 2017
--- OUTSIDE RECORDS SUMMARY | 2025-06-15 12:44 | XMS_ITS | Encounter Summary ---
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 Jack at 9:25 on 04/06/25. 04/06/2025 9:29 AM EDT [facility] Clinical Information 4mm clean mass right lingual mandible (subperiostea l) ? mucocele 04/06/2025 9:29 AM EDT [facility] Gross Description A. Oral Cavity, [...] two pieces. KRISTIAN 04/06/2025 9:29 AM EDT [facility] Disclaimer Unless otherwise specified, all tissue is 10% NB formalin fixed and paraffin embedded. 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
--- OUTSIDE RECORDS SUMMARY | 2025-06-15 12:44 | XMS_ITS ---
Author Name Diana Lopez NP Address [address] [place] [address] Phone [phone] [facility] Care Team Providers Care Backshoe Person Name Role Phone Diana Lopez Unavailable [phone] MELL SMITH Unavailable [phone] Reason for Referral Not Available Allergies, adverse [...] FOR 7 DAYS 2022-03-29 No Data Available Fclfeife-Gihwkrsab-YO [id number] Suspension SHAKE LIQUID AND INSTILL 4 DROPPERFUL [...] follow up with PCP as scheduled.03/07/25:-daughter is ANTHROPOMETRIST and assists members with ADLs/iADLs-needs new shower chair- CSS task placed today-verified with CSS that raised toilet seat with side railing is considered a home modification and would need to go through case management coordinator/[facility] directly. SMS sent to member's daughter informing of this. Encounters Encounters Type Facility Date of Service Diagnosis/Co mplaint No Data Available [facility] [place]20[place] Gastritis, unspecified, with out bleeding Pain Assessment - Pain Documented on a Pain Scale (1125F) [facility] [place]20[place] Pain Assessment - Pain Documented on a Pain Scale (1125F) [facility] [place] Pain Assessment - Pain Documented on a Pain Scale (1125F) [facility] [place] Pain Assessment - Pain Documented on a Pain Scale (1125F) [facility] [place]20[place] Pain Assessment - Pain Documented on a Pain Scale (1125F) [facility] [place]20[place] Pain Assessment - Pain Documented on a Pain Scale (1125F) [facility] [place]20[place] Pain Assessment - Pain Documented on a Pain Scale (1125F) [facility] [place]2022 Pain Assessment - Pain Documented on a Pain Scale (1125F) [facility] [place]2022 Pain Assessment - Pain Documented on a Pain Scale (1125F) [facility] [place]2022 Chronic obstructive pulmonar [...] (do not use for phone, instead use 68476-13) [facility], ([place] 09[place]/2022 Chronic obstructive pulmonar y disease, unspecifiedBody [...] (do not use for phone, instead use 85319-75) [facility] [place]20[place] Estab. patient 30-39min; chronic exacerbation, 2 stable chronic or 1 acute illness add add modifier 95 for video, (do not use for phone, instead use 09373-92) [facility] [place] 09[place]/2022 Estab. patient 30-39min; chronic exacerbation, 2 stable chronic or 1 acute illness add add modifier 95 for video, (do not use for phone, instead use 05387-58) [facility] [place]/2022 Estab. patient 30-39min; chronic exacerbation, 2 stable chronic or 1 acute illness add add modifier 95 for video, (do not use for phone, instead use 46683-24) [facility] [place] 09[place]/2022 Estab. patient 30-39min; chronic exacerbation, 2 stable chronic or 1 acute illness add add modifier 95 for video, (do not use for phone, instead use 84512-16) [facility] [place] 09[place]/2022 Estab. patient 30-39min; chronic exacerbation, 2 stable chronic or 1 acute illness add add modifier 95 for video, (do not use for phone, instead use 90765-02) [facility] [place] 09[place]23/2022 Estab. patient 30-39min; chronic exacerbation, 2 stable chronic or 1 acute illness add add modifier 95 for video, (do not use for phone, instead use 90961-11) [facility] ([place] 09[place]23/2022 Estab. patient 30-39min; chronic exacerbation, 2 stable chronic or 1 acute illness add add modifier 95 for video, (do not use for phone, instead use 18991-02) [facility] [place] 09/23/2022 Estab. patient 30-39min; chronic exacerbation, 2 stable chronic or 1 acute illness add add modifier 95 for video, (do not use for phone, instead use 53155-59) [facility] [place] 11/28/2023 Morbid (severe) obesity due to [...] (do not use for phone, instead use 71969-80) [facility] [place] 11[place]28/2023 Estab. patient 30-39min; chronic exacerbation, 2 stable chronic or 1 acute illness add add modifier 95 for video, (do not use for phone, instead use 28816-60) [facility] [place] 11/28/2023 Estab. patient 30-39min; chronic exacerbation, 2 stable chronic or 1 acute illness add add modifier 95 for video, (do not use for phone, instead use 08440-67) [facility] [place] 11/28/2023 Estab. patient 30-39min; chronic exacerbation, 2 stable chronic or 1 acute illness add add modifier 95 for video, (do not use for phone, instead use 96105-29) [facility] [place] 11/28/2023 Estab. patient 30-39min; chronic exacerbation, 2 stable chronic or 1 acute illness add add modifier 95 for video, (do not use for phone, instead use 32820-89) [facility] [place] 11/28/2023 Estab. patient 30-39min; chronic exacerbation, 2 stable chronic or 1 acute illness add add modifier 95 for video, (do not use for phone, instead use 90028-09) [facility] [place] 11/28/2023 Estab. patient 30-39min; chronic exacerbation, 2 stable chronic or 1 acute illness add add modifier 95 for video, (do not use for phone, instead use 24733-63) [facility] [place] 11/28/2023 Estab. patient 30-39min; chronic exacerbation, 2 stable chronic or 1 acute illness add add modifier 95 for video, (do not use for phone, instead use 48225-40) [facility] [place] 11/28/2023 Estab. patient 20-29min; 1 stable chronic or 2 minor; add add modifier 95 for video, modifier 93 for phone [facility] [place] 08/31/2024 Morbid (severe) obesity due to [...] 95 for video, modifier 93 for phone [facility] [place] 08/31/2024 Estab. patient 20-29min; 1 stable chronic or 2 minor; add add modifier 95 for video, modifier 93 for phone [facility]/31/20[place] Estab. patient 20-29min; 1 stable chronic or 2 minor; add add modifier 95 for video, modifier 93 for phone [facility] [place] 08/31/2024 Estab. patient 20-29min; 1 stable chronic or 2 minor; add add modifier 95 for video, modifier 93 for phone [facility] [place] 08/31/2024 Estab. patient 20-29min; 1 stable chronic or 2 minor; add add modifier 95 for video, modifier 93 for phone [facility] 08/31/2024 Estab. patient 20-29min; 1 stable chronic or 2 minor; add add modifier 95 for video, modifier 93 for phone [facility] 08/31/2024 Estab. patient 20-29min; 1 stable chronic or 2 minor; add add modifier 95 for video, modifier 93 for phone [facility] 08/[place]/2024 Estab. patient 10-29min; 1 minor problem; add add modifier 95 for video, modifier 93 for phone [facility] 03/07/2025 Unspecified osteoarthritis, unspecified [...] tive Time Current Smoking Status Never smoker 2025-06-04 2 Sex Female History of Procedures Procedures Service Procedure code Service date Servicing provider Phone# No Data Available [id number] 2022-05-20 No Data Available No Data Available [...] (do not use for phone, instead use 65607-66) [id number] 2022-05-23 No Data Available No Data Availa ble Estab. patient 30-39min; chronic exacerbation, 2 stable chronic or 1 acute illness add add modifier 95 for video, (do not use for phone, instead use 23980-60) [id number] 2022-09-23 No Data Available No Data Availa [...] (do not use for phone, instead use 52145-60) [id number] 2023-11-28 No Data Available No Data Availa [...] 95 for video, modifier 93 for phone [id number] 2024-08-31 No Data Available No Data Availa [...] 95 for video, modifier 93 for phone [id number] 2025-03-07 No Data Available No Data Availa [...] follow up with PCP as scheduled.03/07/25:-daughter is ANTHROPOMETRIST and assists members with ADLs/iADLs-needs new shower chair- CSS task placed today-verified with CSS that raised toilet seat with side railing is considered a home modification and would need to go through case management coordinator/[facility] directly. SMS sent to member's daughter informing [...] to use it. Daughter, Jessica, is her ANTHROPOMETRIST as well. 2025-03-07 Most recent hospital stay or ER visit:No ER visits or hospitalizations documented in [facility] in 90 days. Member denies ER visits or hospitalizations in last 90 days. 2025-03-07 Open HEDIS Measures: No open measures
--- OUTSIDE RECORDS SUMMARY | 2025-06-15 12:44 | XMS_ITS | Encounter Summary ---
Author Organization [employer] Address [address] [place] [address] [address] [place] [address] Care Team Providers Care Deck And Hull Assembler Name Role Phone Unavailable Primary Care Provider Unavailabl e Encounter Details Date Type Department Care Team (Late st Contact Info) Description 04/07/2025 Orders Only [facility] [address] [place] [address] Provider, MD Anushka Social History Tobacco Use [...]
--- OUTSIDE RECORDS SUMMARY | 2025-06-15 12:44 | XMS_ITS | Clinical Summary ---
Author Organization [address] [facility] Address [address] [place] [address] Phone Care Team Providers Care Bell Person Name Role Phone Unavailable Primary Care Provider Unavailabl e Encounters Date Type Department Care Team Description 04/05/2025 Lab Requisition [facility] - Main Lab [address] [facility] [employer] [place] [address] Peter Jack DMD Benign neoplasm [...] Depression Screening 08/04/2024 COVID-19 Vaccine (1 - 2024-2 6 season) 2025 Influenza Vaccine (#1) 2025 Cholesterol [...] excision: Benign simple cyst 04/06/2025 9:29 AM [facility] Comment The findings were discussed with Dr. Jack at 9:25 on 04/06/25. 04/06/2025 9:29 AM [facility] Clinical Information 4mm clean mass right lingual mandible (subperiostea l) ? mucocele 04/06/2025 9:29 AM [facility] Gross Description A. Oral [...] cassette, two pieces. KRISTIAN 04/06/2025 9:29 AM [facility] Disclaimer Unless otherwise specified, all tissue is 10% NB formalin fixed and paraffin embedded. 04/06/2025 9:29 AM [facility] [place] ([facility]) [facility] Tissue Oral cavity structure / Unknown 03/30/2025 04/05/2025 7:27 AM EDT Peter Tinocoevelyn DMD LAB PATHOLOGY ORDERABLES Michelle faiza Result [facility] ([facility]) [facility] [address] [place] [address], from Last 3 Months Insurance [address] [place] [phone] [employer] MEDICARE [place] [facility]
--- OUTSIDE RECORDS SUMMARY | 2025-06-15 12:44 | XMS_ITS | Clinical Summary ---
Author Organization [employer] Address [address] [place] [address] 7 [place] [address] Care Team Providers Care Cook Cold Meat Name Role Phone Unavailable Primary Care Provider [...] Department Care Team Description 04/07/2025 Orders Only [facility] [employer] [address] [place], [place] [phone] ProviderAnushka MD 04/06/2025 9:00 AM EDT Office Visit [facility] [address] [place] [address] Stuart Gonzalez 03/30/2025 9:30 AM EDT Office Visit [facility] [address] [place] [address] Peter Jack DMD History of tooth extraction, [...] Relevant to Health Maintenance Insurance DENTAL - [facility]
== END 2025-06-15 11:58 | disposition home or self-care (01) ==
LOC: HO.HMCH 10:36
PROVIDERS: PCP Internal Medicine; Visit Provider Internal Medicine
DX: Z00.00 Encounter for general adult medical examination without abnormal findings (principal); G30.9 Alzheimer's disease, unspecified; F02.B0 Dementia in other diseases classified elsewhere, moderate, without behavioral disturbance, psychotic disturbance, mood disturbance, and anxiety; F32.0 Major depressive disorder, single episode, mild

== ENCOUNTER → 2025-06-15 10:35 | Outpatient (BNVA) | payer OTHER, SELFPAY | PROVIDERS: PCP Internal Medicine; Visit Provider Internal Medicine | DX: Z00.00 Encounter for general adult medical examination without abnormal findings (principal); E66.01 Morbid (severe) obesity due to excess calories; G30.9 Alzheimer's disease, unspecified; F02.B0 Dementia in other diseases classified elsewhere, moderate, without behavioral disturbance, psychotic disturbance, mood disturbance, and anxiety; F32.0 Major depressive disorder, single episode, mild; R30.0 Dysuria; Z68.41 Body mass index [BMI] 40.0-44.9, adult; Z79.899 Other long term (current) drug therapy | CPT/HCPCS: 99397 ==

== ENCOUNTER 2025-06-20 10:43 | Outpatient (AMB) | payer OTHER, SELFPAY ==
[2025-06-20 11:04] VITALS: BP 142/88; PULSE 66; O2SAT 95; BMI 40.9
--- NOTE | 2025-06-20 11:04 | A.OFFVIS_ITS ---
Vital Signs 06/20/25 11:04 Height 5 ft 2 in Weight 223 lb 6 oz BMI 40.9 BP 142/88 H Blood Pressure Location Rt brachial Position Sitting Pulse 66 Pulse Source Pulse Oximeter Pulse Oximetry (%) 95 Oxygen Delivery Method Room Air Intake Visit Reasons: 6m follow up - confirmed appt Intake Note: Patient presents follow up Dementia medication. No changes, feels like she is getting worse. 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 Her Dementia is worsening, she repeats a lot, gets agitated, starts to cry and gets confuse when asked to finish tasks. She forgets where her food is placed, forgets medication, appts, conversations, and misplaces things. Her med are controlled with automatic medication pill dispenser. Family tried to increased social activities, she prefers to stay home alone. She goes to [facility] on Fri. and Sat nights. Her sleep is being monitored on camera from 8:30pm to 7am and she has 2 bathroom breaks.She has had trouble falling asleep for many years, better now since she is seeing a urologist for kidney stones, drinking more water. She snores at night occasionally, and has pain in her joints due to arthritis. Has daily arthritic pain, needs foot rubs daily. Her l. hand tremors started about 3 years ago, they are mild and intermittent per daughter Noa. She needs support with all her ADLs, showering, cooking, cleaning, and shopping. She lives alone in a care home apartment building. She denies h/o falls, 3 weeks ago she slipped of the bed onto the floor, no fractures, labs were normal. 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 She has constipation, every 2 days BM with diarrhea takes senna and miralax, and eats a well balanced low sodium diet. She uses her rolling walker to ambulate in the hallways. [facility] Medical History Dementia Multinodular goiter HX: breast cancer Thyroid disease Depression Obesity (BMI 30-39.9) Vitamin D deficiency Migraine GERD without esophagitis Anemia Asthma Pure hypercholesterolemia Environmental allergies Venous (peripheral) insufficiency Complex renal cyst Gall stones Mild major depression Dyslipidemia Tremor of left hand Invasive ductal carcinoma of left breast Non-toxic multinodular goiter Lumbar degenerative disc disease Renal calculi Insomnia Constipation due to opioid therapy Essential hypertension Surgical History History of left cataract surgery Hx of varicose vein stripping Hx of cystoscopy Hx of biopsy H/O colonoscopy Hx of dilation and curettage History of esophagogastroduodenoscopy (EGD) Hx of hand surgery History of lumpectomy of left breast History of lithotripsy History of left knee replacement History of section Family History Father Medical history unknown Mother Lung cancer Colon cancer Social History Household Members: None Household Members Other:: daughter Noa Housing: Apartment Are you a primary care management coordinator to a significant other at home: No Do you presently have visiting nurse or other home services: Yes (daughter HUMAN RESOURCES FILE CLERK 24/7) Alcohol intake: never Patient Tobacco Use Status: Never used Tobacco e-Cigarette/Vaping Use: Never Used Second Hand Smoke Exposure: No Advance Directives Date on File: 11/12/17 service: No 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al status: unemployed and disabled 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 Cognitive needs: Yes (cane, walker) Hearing needs: No Vision needs: Yes Review of Systems Neuro Reports confusion Psych Reports confusion Physical Exam Vital Signs: Last Vital Signs Pulse 66 06/20/25 11:04 BP 142/88 H 06/20/25 11:04 Pulse Ox 95 06/20/25 11:04 Oxygen Delivery Method Room Air 06/20/25 11:04 BMI result Body Mass Index 40.9 Const General: cooperative and confusion Nutritional Appearance: obese Orientation/consciousness: oriented to person, oriented to place and confusion HEENT Face and sinus: Yes face symmetric Resp Effort & Inspection: normal respiratory effort and able to speak in complete sentences Neuro Other: walks with walker- slow antalgic gait Left UE rest tremors when anxious, lip smacking behavior FFM and foot taps decreased, l. calf sensitivity to touch with pain General: oriented to person, oriented to place, tone normal, moves all extremities, no focal motor deficits and confusion Cranial nerves: Yes Facial sensation intact/muscles of mastication intact, Yes Normal facial strength present, Yes Midline tongue present and Yes Ability to bilaterally elevate shoulders present Cognition (Neuro): abnormal cognition Gait exam (Neuro): Antalgic gait present Motor exam (neuro): 5/5 motor strength present throughout and Normal motor muscle tone present throughout Deep tendon reflexes (DTR's): Right triceps reflex intensity grade: 1+, Left triceps reflex intensity grade: 1+, Rt Biceps (C5, C6): 1+, Left biceps reflex intensity grade: 1+, Right brachioradialis reflex intensity grade: 1+, Left brachioradialis reflex intensity grade: 1+, Right patellar reflex intensity grade: 1+ and Left patellar reflex intensity grade: 1+ Psych Appearance: well kempt Speech and movement: Slowed movement present (Neuro) Assessment & Plan Assessment & Plan (1) Insomnia: Code(s): G47.00 - Insomnia, unspecified Category: Medical Qualifiers: Insomnia type: unspecified Qualified Code(s): G47.00 - Insomnia, unspecified (2) Dementia: Comment: Alzheimers vs Mixed Code(s): F03.90 - Unspecified dementia, unspecified severity, without behavioral disturbance, psychotic disturbance, mood disturbance, and anxiety Category: Medical Qualifiers: Dementia type: Alzheimer's Alzheimer's disease onset: unspecified onset Dementia severity: moderate Dementia behavioral or psychological symptom: unspecified whether behavioral, psychotic, or mood disturbance or anxiety Qualified Code(s): G30.9 - Alzheimer's disease, unspecified; F02.B0 - Dementia in other diseases classified elsewhere, moderate, without behavioral disturbance, psychotic disturbance, mood disturbance, and anxiety (3) Tremor of left hand: Code(s): R25.1 - Tremor, unspecified Category: Medical (4) Cognitive decline: Code(s): R41.89 - Other symptoms and signs involving cognitive functions and awareness Category: Medical Plan HST r/o anny and Insomnia, continue Melatonin 5mg to 10mg as needed 1 hour prior to sleep. Labs reviewed with pt. and daughter. Cognitive decline MMSE 21 today, Continue memantine 10mg po BID, will increase to 20mg po daily, may add on Donepezil in future. Encouraged to increase her physical and social engagements. Reading, puzzles, dancing, walking, swimming etc. Tremor does not bother her, I will monitor her clinically. F/u in 3 months after HST. Orders: Orders RT home sleep study Today G47.19 - Other hypersomnia Patient Instructions: Sleep Hygiene provided: set a scheduled bedtime and wake time to help regulate the circadian rhythm and balance the release of pituitary hormones. Sleep in a dark room, temperatures below 68 degrees, and no devices n bed. Limit caffeinated products 6 hours prior to bed, and limit fluids 2-4 hours prior to bed. Gentle night yoga, diffusing essential oils, and playing soft music can be relaxing. Coding Level of Care Code Est Pt Level 4 (95930) Diagnoses Insomnia, unspecified type G47.00 Insomnia type: unspecified Moderate Alzheimer's dementia, unspecified timing of dementia onset, unspecified whether behavioral, psychotic, or mood disturbance or anxiety G30.9; F02.B0 Dementia type: Alzheimer's Alzheimer's disease onset: unspecified onset Dementia severity: moderate Dementia behavioral or psychological symptom: unspecified whether behavioral, psychotic, or mood disturbance or anxiety Tremor of left hand R25.1 Cognitive decline R41.89
== END 2025-06-20 11:52 | disposition home or self-care (01) ==
LOC: HO.HSMS 10:44
PROVIDERS: PCP Internal Medicine; Visit Provider Physician Assistant Medical
DX: G47.00 Insomnia, unspecified (principal); G30.9 Alzheimer's disease, unspecified; F02.B0 Dementia in other diseases classified elsewhere, moderate, without behavioral disturbance, psychotic disturbance, mood disturbance, and anxiety; R25.1 Tremor, unspecified; R41.89 Other symptoms and signs involving cognitive functions and awareness
CPT/HCPCS: 99214

== ENCOUNTER → 2025-06-20 10:43 | Outpatient (BNVA) | payer OTHER, SELFPAY | PROVIDERS: PCP Internal Medicine; Visit Provider Physician Assistant Medical | DX: G47.00 Insomnia, unspecified (principal); G30.9 Alzheimer's disease, unspecified; F02.B0 Dementia in other diseases classified elsewhere, moderate, without behavioral disturbance, psychotic disturbance, mood disturbance, and anxiety; R41.89 Other symptoms and signs involving cognitive functions and awareness | CPT/HCPCS: 99212 ==

== ENCOUNTER 2025-06-21 10:29 | Outpatient (AMB) | payer OTHER, SELFPAY ==
[2025-06-21 11:10] VITALS: BMI 40.8
--- NOTE | 2025-06-21 11:10 | MHC.OFFVIS ---
Vital Signs 06/21/25 11:10 Height 5 ft 2 in Weight 223 lb BMI 40.8 Intake Visit Reasons: Enthesopathy of unspecified foot/ankle Intake Note: Estefany is a 79 year old female who presents today as a new patient for an evaluation of her Enthesopathy of her left foot. She states this has been going since last year and her pain is located on the medial aspect of her left hallux. She had a foot injection done last year on the location of the spur and it had provided relief in the past. She notes callous forming on the plantar aspect of her left hallux as well. Allergies cat dander (CAT DANDER) Allergy (Intermediate, Verified 06/21/25 11:15) skin rash mite-Dermatophagoides farinae, skyla (DUST MITES) Allergy (Intermediate, Verified 06/21/25 11:15) watery itchy eyes, sneezing Medication List - Last Reconciled 06/21/25 by Antonia Gill DPM acetaminophen (Tylenol) 325 mg PO BID PRN albuterol sulfate 90 mcg/actuation 1 - 2 puffs PO Q4-6H PRN 30 days amlodipine 5 mg PO DAILY aspirin 81 mg PO DAILY 90 days atorvastatin 80 mg PO BEDTIME 90 days cetirizine 10 mg PO DAILY cholecalciferol (vitamin D3) 25 mcg PO DAILY epinephrine 0.3 mL IM DAILY PRN ferrous sulfate (Iron (ferrous sulfate)) 325 mg PO DAILY 30 days furosemide 40 mg PO DAILY 90 days losartan 100 mg PO DAILY 90 days memantine 10 mg PO BID 90 days MDD 20mg mometasone 0.1% 1 appl topical DAILY PRN [id number] 1 tab PO DAILY nystatin 1 appl topical DAILY PRN 30 days olopatadine 0.1% 1 drp ophthalmic (eye) DAILY omega-3 fatty acids 1,000 mg PO DAILY omeprazole 20 mg PO DAILY 90 days oxycodone 5 mg PO BID 30 days polyethylene glycol 3350 17 grams PO DAILY 30 days sennosides (senna) 8.6 mg PO BEDTIME PRN 30 days sertraline 200 mg PO DAILY sumatriptan succinate 25 mg PO Q2-4H PRN 30 days trazodone 150 mg PO BEDTIME walker with wheels HPI Comments Details: The patient is an 79-year-old female with a past medical history as seen below presenting with pain to the left hallux. Patient was accompanied by her daughter who assisted in providing a history. Patient has been experiencing pain to the hallux due to a bunion and hyperkeratotic area. The callus has been a recurring issue, with her daughter states she has tried to manage it through regular shaving and application of creams to soften the area. Despite these efforts, the callus continues to reform. Patient's daughter states she thinks a bone spur is causing the callus formation. She denies any recent pedal injuries. Denies any other pedal concerns. [facility] Medical History (Updated 06/22/25 @ 09:54 by Antonia Gill DPM) Callus of foot Other specified epidermal thickening Left foot pain Hallux valgus (acquired), left foot Dementia Multinodular goiter HX: breast cancer Thyroid disease Depression Obesity (BMI 30-39.9) Vitamin D deficiency Migraine GERD without esophagitis Anemia Asthma Pure hypercholesterolemia Environmental allergies Venous (peripheral) insufficiency Complex renal cyst Gall stones Mild major depression Dyslipidemia Tremor of left hand Invasive ductal carcinoma of left breast Non-toxic multinodular goiter Lumbar degenerative disc disease Renal calculi Insomnia Constipation due to opioid therapy Essential hypertension Surgical History History of left cataract surgery Hx of varicose vein stripping Hx of cystoscopy Hx of biopsy H/O colonoscopy Hx of dilation and curettage History of esophagogastroduodenoscopy (EGD) Hx of hand surgery History of lumpectomy of left breast History of lithotripsy History of left knee replacement History of section Family History Father Medical history unknown Mother Lung cancer Colon cancer Social History Household Members: None Household Members Other:: daughter Albseema Housing: Apartment Are you a primary customer care assistant to a significant other at home: No Do you presently have visiting nurse or other home services: Yes (daughter THRESHING DEPARTMENT SUPERVISOR 24/7) Alcohol intake: never Patient Tobacco Use Status: Never used Tobacco e-Cigarette/Vaping Use: Never Used Second Hand Smoke Exposure: No Advance Directives Date on File: 11/12/17 service: No 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al status: unemployed and disabled 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 All systems reviewed & are unremarkable except as noted in HPI and below Physical Exam Vital Signs: BMI result Body Mass Index 40.8 Extrem Other: LLE Focused Physical Exam: Derm: Hyperkeratotic lesion with central aspect of maceration upon debridement noted to the medial aspect of the hallux. No open lesions abrasions or wounds noted. No ecchymosis or discoloration noted. No clinical signs of infection. No active drainage, purulence, or bleeding noted. Vascular: DP/PT pulses palpable. Capillary refill time less than 3 seconds. Temperature gradient warm to warm. Pedal hair absent. Minimal varicosities noted. Minimal edema noted. Neuro: Protective sensation is grossly intact. MSK: Pain on palpation the hyperkeratotic lesion to the left hallux. Tracking HAV noted. Mild hammertoes noted to 2-5. No crepitus or fluctuance noted. Mildly antalgic gait noted. Office Procedures AMB Debridement/Avulsion Podia Details: Debrided the hyperkeratotic lesion to the medial aspect of the left hallux using 15. Blade without any incidents. Applied Betadine and a Band-Aid to the macerated area of the hyperkeratotic lesion. [id number] of Callus (1) Procedure code (CPT) selection complete Results Reviewed Results Reviewed: Ordered left foot x-rays three-view weight-bearing to be performed prior to next visit. Assessment & Plan Assessment & Plan (1) Left foot pain: Code(s): M79.672 - Pain in left foot Category: Medical (2) Hallux valgus (acquired), left foot: Code(s): M20.12 - Hallux valgus (acquired), left foot Category: Medical (3) Bone spur of foot: Code(s): M77.50 - Other enthesopathy of unspecified foot and ankle Category: Medical (4) Other specified epidermal thickening: Code(s): L85.8 - Other specified epidermal thickening Category: Medical (5) Callus of foot: Code(s): L84 - Corns and callosities Category: Medical Plan Patient was informed and verbally consented to the use of an ambient scribe for clinic note documentation during this visit. I discussed with the patient and her daughter the management of her foot callus, including regular shaving and the application of creams to soften the area. We talked about the possibility of a bone spur contributing to the callus formation and the need for x-rays to confirm this. I explained the surgical options for her bunion, including the recovery process and potential challenges due to her age. We also discussed the importance of footwear modifications to reduce pressure on the foot. - Debrided the hyperkeratotic lesion of the left foot. - Recommended application of an emollient to reduce the rate of reoccurrence for the hyperkeratotic lesion. - Ordered x-rays to be performed prior to next visit. - Advised patient to wear shoes with a wide toe box, where bunion sleeves, and wear supportive shoe Gear and inserts. - Advised patient to avoid barefoot walking. RTC in 2 months. Orders: Orders XR foot LT min 3V 06/21/25 M20.12 - Hallux valgus (acquired), left foot, M79.672 - Pain in left foot AMB Debridement/Avulsion Podiatry 06/21/25 L84 - Corns and callosities, L85.8 - Other specified epidermal thickening, M20.12 - Hallux valgus (acquired), left foot, M77.50 - Other enthesopathy of unspecified foot and ankle, M79.672 - Pain in left foot Coding Level of Care Code New Pt Level 4 (95502) Diagnoses Left foot pain M79.672 Hallux valgus (acquired), left foot M20.12 Bone spur of foot M77.50 Other specified epidermal thickening L85.8 Callus of foot L84 CPT Codes Skin Debridement - CPT: 55832-Yaglmhnjxkc of Callus (1) ([id number]) Time Spent (min) 50 Comment 5 mins for procedure
== END 2025-06-21 11:32 | disposition home or self-care (01) ==
LOC: HO.HPODS 10:30
PROVIDERS: PCP Internal Medicine; Visit Provider Student in an Organized Health Care Education/Training Program
DX: M79.672 Pain in left foot (principal); M20.12 Hallux valgus (acquired), left foot; M77.50 Other enthesopathy of unspecified foot and ankle; L85.8 Other specified epidermal thickening; L84 Corns and callosities
CPT/HCPCS: 11055; 99204

== ENCOUNTER 2025-06-24 08:47 | Outpatient (AMB) | payer OTHER, SELFPAY ==
--- NOTE | 2025-06-24 08:49 | MHC.OFFVIS ---
Vital Signs 06/24/25 08:51 Height 5 ft 2 in Weight 222 lb 10.67 oz BMI 40.7 BP 132/80 Blood Pressure Location Rt brachial Position Sitting Pulse 71 Pulse Source Pulse Oximeter Pulse Oximetry (%) 96 Oxygen Delivery Method Room Air Intake Visit Reasons: NTMNG Intake Note: Patient presents today for a one-year follow-up evaluation of nontoxic multinodular goiter. The patient was last seen by Dr. Sharmila Rutledge MD. Farm Machinery Engine Mechanic Required: Yes Farm Machinery Engine Mechanic Language: Supervisor [place] Services: Farm Machinery Engine Mechanic Offered & Declined (DR Robison Speak Fluent [place]) Accompanied by: Self / Same As Patient Allergies cat dander (CAT DANDER) Allergy (Intermediate, Verified 06/24/25 08:58) skin rash mite-Dermatophagoides farinae, skyla (DUST MITES) Allergy (Intermediate, Verified 06/24/25 08:58) watery itchy eyes, sneezing Medication List - Last Reconciled 06/24/25 by Yeset Enriqueta Martinez MD acetaminophen (Tylenol) 325 mg PO BID PRN albuterol sulfate 90 mcg/actuation 1 - 2 puffs PO Q4-6H PRN 30 days amlodipine 5 mg PO DAILY aspirin 81 mg PO DAILY 90 days atorvastatin 80 mg PO BEDTIME 90 days cetirizine 10 mg PO DAILY cholecalciferol (vitamin D3) 25 mcg PO DAILY epinephrine 0.3 mL IM DAILY PRN ferrous sulfate (Iron (ferrous sulfate)) 325 mg PO DAILY 30 days furosemide 40 mg PO DAILY 90 days losartan 100 mg PO DAILY 90 days memantine 10 mg PO BID 90 days MDD 20mg mometasone 0.1% 1 appl topical DAILY PRN [id number]-[id number] 1 tab PO DAILY nystatin 1 appl topical DAILY PRN 30 days olopatadine 0.1% 1 drp ophthalmic (eye) DAILY omega-3 fatty acids 1,000 mg PO DAILY omeprazole 20 mg PO DAILY 90 days oxycodone 5 mg PO BID 30 days polyethylene glycol 3350 17 grams PO DAILY 30 days sennosides (senna) 8.6 mg PO BEDTIME PRN 30 days sertraline 200 mg PO DAILY sumatriptan succinate 25 mg PO Q2-4H PRN 30 days trazodone 150 mg PO BEDTIME walker with wheels HPI Comments Details: 78 YO Female with a PMHx of a NTMNG who is seen in F/U for the same. She was previously followed by Dr. Alas and then Dr. Emmanuel, last seen 12/2022. Here today with her daughter Noa, which is also her TEXTILE MACHINERY SALES REPRESENTATIVE. Last seen by Dr. Rutledge on 04/02/2024. This is my 1st time seeing this patient. She has a long history of a multinodular thyroid. TFTs have remained WNL at 1.54 from December 2023 She denies any compressive symptoms. Denies symptoms of hyper or hypothyroidism. Her TEXTILE MACHINERY SALES REPRESENTATIVE is here at the visit, who is also her daughter, and she says sometimes her voice becomes was but she has no significant trouble swallowing. She eats well. HPI from prior visits She has a history of breast cancer with history of radiation therapy. She has had multiple prior FNA biopsies in the past, as listed below: 05/30/2016: 1) RLP 1.1 cm - Cytology benign 2) LMP 1.7 cm - Cytology benign 3) LMP 1.0 cm - Cytology benign 11/13/2017: 1) LMP 2.0 cm - Cytology benign 2) LLP 1.2 cm - nondiagnostic 3) RUP 1.0 cm - nondiagnostic 05/11/2020: RLP 1.5 cm thyroid nodule - Cytology benign On 10/25/[address] Emmanuel . Her US had revealed significant growth of her LMP 2.7 cm and her LMP 1.2 cm thyroid nodules. Cytology for her LMP 2.7 cm nodule was benign, but she was unable to tolerate FNA biopsy of her LMP 1.2 cm thyroid nodule. Ultrasound December 2022 showed increase in the size of a right lower pole nodule which now measures 1.7 cm, TR 4, solid very hypoechoic. Showed increase in the size of another 1.1 cm right midpole nodule. This might have been 1 of the ones that was biopsied before. Showed decrease in size of the 2.3 cm left midpole nodule which was previously 2.7 cm and previously biopsied and was benign. Also showed decrease in size of the left lower pole 0.9 cm nodule which was previously 1.2 cm in size. Showed another 1.1 left lower pole nodule which was TR 2 category. Subsequently she underwent FNA March 2023 of the right lower pole 1.[address] Emmanuel which was [place] category 2 benign. Interval history: She reports feeling regular since the last visit office No new medical diagnosis Poor energy due to deconditioning No cold intolerance Constipation, byt could be related to other medications intermittent symptoms of reported by pt (has mild dementia), but her daughter/TEXTILE MACHINERY SALES REPRESENTATIVE has not seen this happening. Physical exam: General: Well appearing. NAD. Neck/Thyroid: Thyroid not palpable, no nodules. Eyes: No conjunctival injection, not lid lag or proptosis CV: RRR, no murmur. No edema. Resp: Lungs clear to auscultation bilaterally Abdomen: Soft, nontender. nondistended Extremities/Neuro: No weakness or tremor of outstretched hands PFSH Medical History Callus of foot Other specified epidermal thickening Left foot pain Hallux valgus (acquired), left foot Dementia Multinodular goiter HX: breast cancer Thyroid disease Depression Obesity (BMI 30-39.9) Vitamin D deficiency Migraine GERD without esophagitis Anemia Asthma Pure hypercholesterolemia Environmental allergies Venous (peripheral) insufficiency Complex renal cyst Gall stones Mild major depression Dyslipidemia Tremor of left hand Invasive ductal carcinoma of left breast Non-toxic multinodular goiter Lumbar degenerative disc disease Renal calculi Insomnia Constipation due to opioid therapy Essential hypertension Surgical History (Updated 06/24/25 @ 08:56 by CHERELLE Pruitt) History of left cataract surgery Hx of varicose vein stripping Hx of cystoscopy Hx of biopsy H/O colonoscopy Hx of dilation and curettage History of esophagogastroduodenoscopy (EGD) Hx of hand surgery History of lumpectomy of left breast History of lithotripsy History of left knee replacement History of section Family History Father Medical history unknown Mother Lung cancer Colon cancer Social History Household Members: None Household Members Other:: daughter Albseema Housing: Apartment Are you a primary care transitions manager to a significant other at home: No Do you presently have visiting nurse or other home services: Yes (daughter TEXTILE MACHINERY SALES REPRESENTATIVE 24/02) Alcohol intake: never Patient Tobacco Use Status: Never used Tobacco e-Cigarette/Vaping Use: Never Used Second Hand Smoke Exposure: No Advance Directives Date on File: 11/12/17 service: No 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al status: unemployed and disabled 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 Right Thyroid Lobe: 4.9 x 1.7 x 2.6 cm, volume 11.6 mL. Previously 5.2 x 1.7 x 2.4 cm, volume 11.1 mL. Parenchyma: The gland echotexture is heterogeneous. Thyroid vascularity is normal. Left Thyroid Lobe: 4.5 x 2.5 x 2.9 cm, volume 16.9 mL. Previously 4.7 x 2.0 x 2.8 cm, volume 13.8 mL. Parenchyma: The gland echotexture is heterogeneous. Thyroid vascularity is increased. Isthmus: 0.7 cm in maximum AP dimension. Previously 0.8 cm. Estimated total number of nodules greater than or equal to 1 cm: 3. Director Of Psychology nodules are described as follows: 1. Location: Right mid. Size: 0.7 x 0.3 x 0.7 cm, volume 0.1 mL. Previously: 1.1 x 0.5 x 0.6 cm, volume 0.2 mL. Nodule characteristics: Composition: Solid (2). Echogenicity: Isoechoic (1). Shape: Not taller than wide (0). Margins: Ill-defined (0). Echogenic Foci: Macrocalcifications (1). ACR TI-RADS total points: 4 Previous: 4 ACR TI-RADS category: 4 Previous: 4 Significant change in size (>/= 20% in 2 dimensions and minimal increase of 2 mm or 50% or greater increase in volume): No Change in features: No Change in ACR TI-RADS risk category: No 2. Location: Right inferior. Size: 1.5 x 0.8 x 0.9 cm, volume 0.6 mL. Previously: 1.7 x 1.5 x 0.9 cm, volume 1.12 mL. Nodule characteristics: Composition: Solid (2). Echogenicity: Very hypoechoic (3). Shape: Not taller than wide (0). Margins: Smooth (0). Echogenic Foci: Macrocalcifications (1). ACR TI-RADS total points: 6 Previous: 6 ACR TI-RADS category: 4 Previous: 4 Significant change in size (>/= 20% in 2 dimensions and minimal increase of 2 mm or 50% or greater increase in volume): No Change in features: No Change in ACR TI-RADS risk category: No 3. Location: Left mid. Size: 2.2 x 1.5 x 2.6 cm, volume 4.6 mL. Previously: 2.3 x 2.2 x 1.5 cm, volume 3.7 mL. Nodule characteristics: Composition: Solid (2). Echogenicity: Hypoechoic (2). Shape: Not taller than wide (0). Margins: Smooth (0). Echogenic Foci: None (0). ACR TI-RADS total points: 4 Previous: 4 ACR TI-RADS category: 4 Previous: 4 Significant change in size (>/= 20% in 2 dimensions and minimal increase of 2 mm or 50% or greater increase in volume): No Change in features: No Change in ACR TI-RADS risk category: No 4. Location: Left mid. Size: 1.3 x 0.7 x 0.7 cm, volume 0.3 mL. Previously: 0.9 x 0.8 x 0.6 cm, volume 0.2 mL. Nodule characteristics: Composition: Solid (2). Echogenicity: Hypoechoic (2). Shape: Not taller than wide (0). Margins: Smooth (0). Echogenic Foci: None (0). ACR TI-RADS total points: 4 Previous: 4 ACR TI-RADS category: 4 Previous: 4 Significant change in size (>/= 20% in 2 dimensions and minimal increase of 2 mm or 50% or greater increase in volume): No Change in features: No Change in ACR TI-RADS risk category: No 5. Location: Left inferior. Size: 0.7 x 0.5 x 1.0 cm, volume 0.2 mL. Previously: 0.9 x 0.5 x 1.1 cm, volume 0.2 mL. Nodule characteristics: Composition: Mixed cystic and solid (1). Echogenicity: Isoechoic (1). Shape: Not taller than wide (0). Margins: Smooth (0). Echogenic Foci: None (0). ACR TI-RADS total points: 2 Previous: 2 ACR TI-RADS category: 2 Previous: 2 Significant change in size (>/= 20% in 2 dimensions and minimal increase of 2 mm or 50% or greater increase in volume): No Change in features: No Change in ACR TI-RADS risk category: No NODES: No lymphadenopathy is seen in the tissue surrounding the thyroid gland. IMPRESSION: 1. Nodule in the midportion of the right thyroid lobe demonstrates decreased maximum dimension and measuring 0.7 cm with a stable TI-RADS category 4. Nodule does not require follow-up. 2. Nodule in the lower portion of the right thyroid lobe demonstrates decreased maximum dimension and measuring 1.5 cm with increase in TI-RADS Category now 5. Nodule is amenable to biopsy if not already performed. 3. Nodule in the midportion of the left thyroid lobe (nodule #3) demonstrates increased maximum dimension now measuring 2.6 cm with a stable TI-RADS category 4. Nodule is amenable to biopsy if not already performed. 4. Nodule in the midportion of the left thyroid lobe (nodule #4) demonstrates increased max dimension measuring 1.3 cm with a stable TI-RADS category 4. Follow-up as below. 5. Nodule in the lower portion of the left thyroid lobe demonstrates slight decrease in maximum dimension measuring 1.0 cm with a stable TI-RADS category 2. Nodule does not require follow-up. 6. Bilateral thyroid lobes are enlarged, left greater than right with a heterogeneous echotexture and normal vascularity. 7. No lymphadenopathy noted. US THYROID 12/24 CLINICAL INFORMATION: Nontoxic multinodular goiter. COMPARISON: Ultrasound thyroid 06/05/2021 and 02/29/2020. US-guided thyroid biopsy 10/25/2021. TECHNIQUE: Linear transducer grayscale and color Doppler examination with attention to the region of the thyroid. FINDINGS: SIZE: Measurements of the thyroid lobes and nodules are given in sagittal, anteroposterior and transverse dimensions respectively. Right Thyroid Lobe: 5.2 x 1.7 x 2.4 cm, volume 11.1 mL. Previously 5.0 x 1.4 x 2.9 cm, volume 11.1 mL. Parenchyma: The gland echotexture is heterogeneous. Thyroid vascularity is increased. Left Thyroid Lobe: 4.7 x 2.0 x 2.8 cm, volume 13.8 mL. Previously 4.6 x 1.9 x 2.3 cm, volume 12.2 mL. Parenchyma: The gland echotexture is heterogeneous. Thyroid vascularity is increased. Isthmus: 0.8 cm in maximum AP dimension. Previously 0.7 cm. Estimated total number of nodules greater than or equal to 1 cm: 3. Director Of Psychology nodules are described as follows: 1. Location: Right mid. Size: 1.1 x 0.5 x 0.6 cm, volume 0.2 mL. Previously: 0.5 x 0.2 x 0.5 cm, volume 0.02 mL. Nodule characteristics: Composition: Solid (2). Echogenicity: Isoechoic (1). Shape: Not taller than wide (0). Margins: Smooth (0). Echogenic Foci: Macrocalcifications (1). ACR TI-RADS total points: 4 Previous: 4 ACR TI-RADS category: 4 Previous: 4 Significant change in size (>/= 20% in 2 dimensions and minimal increase of 2 mm or 50% or greater increase in volume): Yes Change in features: No Change in ACR TI-RADS risk category: No 2. Location: Right inferior. Size: 1.7 x 1.5 x 0.9 cm, volume 1.12 mL. Previously: 1.2 x 0.7 x 1.5 cm, volume 0.6 mL. Nodule characteristics: Composition: Solid (2). Echogenicity: Very hypoechoic (3). Shape: Not taller than wide (0). Margins: Smooth (0). Echogenic Foci: Macrocalcifications (1). ACR TI-RADS total points: 6 Previous: 4 ACR TI-RADS category: 5 Previous: 4 Significant change in size (>/= 20% in 2 dimensions and minimal increase of 2 mm or 50% or greater increase in volume): Yes Change in features: No Change in ACR TI-RADS risk category: No 3. Location: Left mid. Size: 2.3 x 2.2 x 1.5 cm, volume 3.7 mL. Previously: 2.3 x 1.3 x 2.7 cm, volume 4.6 mL. Nodule characteristics: Composition: Solid (2). Echogenicity: Hypoechoic (2). Shape: Not taller than wide (0). Margins: Smooth (0). Echogenic Foci: None (0). ACR TI-RADS total points: 4 Previous: 4 ACR TI-RADS category: 4 Previous: 4 Significant change in size (>/= 20% in 2 dimensions and minimal increase of 2 mm or 50% or greater increase in volume): No Change in features: No Change in ACR TI-RADS risk category: No 4. Location: Left mid. Size: 0.9 x 0.8 x 0.6 cm, volume 0.2 mL. Previously: 1.2 x 0.6 x 1.2 cm, volume 0.5 mL. Nodule characteristics: Composition: Solid (2). Echogenicity: Hypoechoic (2). Shape: Not taller than wide (0). Margins: Smooth (0). Echogenic Foci: None (0). ACR TI-RADS total points: 4 Previous: 4 ACR TI-RADS category: 4 Previous: 4 Significant change in size (>/= 20% in 2 dimensions and minimal increase of 2 mm or 50% or greater increase in volume): No Change in features: No Change in ACR TI-RADS risk category: No 5. Location: Left inferior. Size: 0.9 x 0.5 x 1.1 cm, volume 0.2 mL. Previously: Not seen on the previous study. Nodule characteristics: Composition: Mixed cystic and solid (1). Echogenicity: Isoechoic (1). Shape: Not taller than wide (0). Margins: Smooth (0). Echogenic Foci: None (0). ACR TI-RADS total points: 2 ACR TI-RADS category: 2 NODES: No lymphadenopathy is seen in the tissue surrounding the thyroid gland. US Thyroid: 06/05/2021 Right Thyroid Lobe: 5.0 x 1.4 x 2.9 cm, volume 11.1 mL. Previously 5.2 x 1.8 x 2.0 cm, volume 10.0 mL. Parenchyma: The gland echotexture is heterogeneous. Thyroid vascularity is normal. Left Thyroid Lobe: 4.6 x 1.9 x 2.7 cm, volume 12.2 mL. Previously 4.7 x 1.8 x 2.5 cm, volume 11.1 mL. Parenchyma: The gland echotexture is heterogeneous. Thyroid vascularity is normal. Isthmus: 0.7 cm in maximum AP dimension. Previously 0.7 cm. There are multiple bilateral solid and cystic nodules. Estimated total number of nodules greater than or equal to 1 cm: 3. Director Of Psychology nodules are described as follows: 1.? Location: Right mid pole. ?? ? Size: 0.5 x 0.2 x 0.5 cm, volume 0.02 mL. ?? ? Previously: 0.5 x 0.4 x 0.5 cm, volume 0.05 mL. ?? ? Nodule characteristics: ?? ? Composition: Cannot be determined (2). ?? ? Echogenicity: Hyperechoic (1). ?? ? Shape: Not taller than wide (0). ?? ? Margins: Smooth (0). ?? ? Echogenic Foci: Macrocalcifications (1). ?? ? ACR TI-RADS total points: 4 Previous: Not applicable ?? ? ACR TI-RADS category: 4 Previous: Not applicable ? Significant change in size (>/= 20% in 2 dimensions and minimal increase of 2 mm or 50% or greater increase in volume): ?? ? Change in features: ?? ? Change in ACR TI-RADS risk category: Not applicable 2.? Location: Right lower pole. ?? ? Size: 1.2 x 0.7 x 1.5 cm, volume 0.57 mL. ?? ? Previously: 1.2 x 0.7 x 1.5 cm, volume 0.6 mL. ?? ? Nodule characteristics: ?? ? Composition: Solid/almost completely solid (2). ?? ? Echogenicity: Hypoechoic (2). ?? ? Shape: Not taller than wide (0). ?? ? Margins: Smooth (0). ?? ? Echogenic Foci: None (0). ?? ? ACR TI-RADS total points: 4 Previous: Not applicable ?? ? ACR TI-RADS category: 4 Previous: Not applicable ? Significant change in size (>/= 20% in 2 dimensions and minimal increase of 2 mm or 50% or greater increase in volume): ?? ? Change in features: ?? ? Change in ACR TI-RADS risk category: Not applicable 3.? Location: Left mid pole. ?? ? Size: 2.5 x 1.3 x 2.7 cm, volume 4.6 mL. ?? ? Previously: 2.3 x 1.3 x 1.9 cm, volume 3.0 mL. ?? ? Nodule characteristics: ?? ? Composition: Solid (2). ?? ? Echogenicity: Hypoechoic (2). ?? ? Shape: Not taller than wide (0). ?? ? Margins: Smooth (0). ?? ? Echogenic Foci: None (0). ?? ? ACR TI-RADS total points: 4 Previous: Not applicable ?? ? ACR TI-RADS category: 4 Previous: Not applicable ? Significant change in size (>/= 20% in 2 dimensions and minimal increase of 2 mm or 50% or greater increase in volume): ?? ? Change in features: ?? ? Change in ACR TI-RADS risk category: Not applicable 4.? Location: Left mid pole. ?? ? Size: 1.2 x 0.6 x 1.2 cm, volume 0.47 mL. ?? ? Previously: 0.8 x 0.6 x 0.9 cm, volume 0.25 mL. ?? ? Nodule characteristics: ?? ? Composition: Solid (2). ?? ? Echogenicity: Hypoechoic (2). ?? ? Shape: Not taller than wide (0). ?? ? Margins: Smooth (0). ?? ? Echogenic Foci: None (0). ?? ? ACR TI-RADS total points: 4 Previous: Not applicable ?? ? ACR TI-RADS category: 4 Previous: Not applicable ? Significant change in size (>/= 20% in 2 dimensions and minimal increase of 2 mm or 50% or greater increase in volume): ?? ? Change in features: ?? ? Change in ACR TI-RADS risk category: Not applicable NODES: No lymphadenopathy Assessment & Plan Assessment & Plan (1) Multinodular goiter: Code(s): E04.2 - Nontoxic multinodular goiter Category: Medical Plan: Patient with history of radiation to her neck due to history of breast cancer, with no family history of thyroid cancer, who is coming in for follow up of nontoxic multinodular goiter. She has had several FNA biopsies of these multiple nodules in the past, with most of them yielding benign results. She had 2 nondiagnostic results back in 2018. Most recently in December 2022 some of her nodules have shown growth and she underwent biopsy of the 1.7 cm right lower lobe nodule which was benign [place] category 2. At this time these nodules have been followed at least since 2015 when she had her 1st biopsies. It would be 10 years in 2 years. We will repeat an ultrasound now, however if her nodules are stable in size, the next ultrasound would be in 2 years in summer/fall of 2025, and at that time she would have completed 10 years of follow up of these nodules with multiple benign cytology and so we will stop repeating any ultrasounds unless she has any clinical changes at the 10 year minh. She is biochemically and clinically euthyroid. No compressive symptoms. Overall stable thyroid nodule size, most of them have remained the same size from decrease in size. Right lower lobe pole reported to be amenable for FNA, FNA done in 2022 resulting benign [place] category 2. At this point it does not need to be biopsied. Discussed with patient's HCP-pt is unable to make medical decisions for herself according to daughter (her daugther noa) in terms of what to do in case US features indicate that FNA is done and results in PTC. She initially reported that she would elect to have surgery, but when asked about FNA, she reported that is likely that the patient would not tolerate the FNA. Patient did not have ultrasound done prior to this appointment. We will order thyroid ultrasound. Plan: -ordered repeat thyroid ultrasound now, if stable, we would likely not further follow up these nodules with US yearly. -Both orders placed Plan I spent 35 minutes in reviewing the record, seeing/educating the patient/family and documenting in the medical record. Orders: Orders US thyroid Today E04.2 - Nontoxic multinodular goiter Coding Level of Care Code Est Pt Level 4 (72656) Diagnoses Multinodular goiter E04.2
--- OUTSIDE RECORDS SUMMARY | 2025-06-24 08:50 | XMS_ITS ---
Author Name Diana Lopez NP Address [address] [place] [address] Phone [phone] [facility] Care Team Providers Care Leather Tooler Name Role Phone Diana Lopez Unavailable [phone] MELL SMITH Unavailable [phone] Reason for Referral Not Available Allergies, adverse [...] FOR 7 DAYS 2022-03-29 No Data Available [id number] Suspension SHAKE LIQUID AND INSTILL 4 DROPPERFUL [...] follow up with PCP as scheduled.03/07/25:-daughter is DIRECTOR VOLUNTEER SERVICES and assists members with ADLs/iADLs-needs new shower chair- CSS task placed today-verified with CSS that raised toilet seat with side railing is considered a home modification and would need to go through case management director/[facility] directly. SMS sent to member's daughter informing of this. Encounters Encounters Type Facility Date of Service Diagnosis/Co mplaint No Data Available [facility] [place]20[place] Gastritis, unspecified, with out bleeding Pain Assessment - Pain Documented on a Pain Scale (1125F) [facility] [place] Pain Assessment - Pain Documented on a Pain Scale (1125F) [facility] [place] Pain Assessment - Pain Documented on a Pain Scale (1125F) [facility] [place] Pain Assessment - Pain Documented on a Pain Scale (1125F) [facility] [place] Pain Assessment - Pain Documented on a Pain Scale (1125F) [facility] [place] Pain Assessment - Pain Documented on a Pain Scale (1125F) [facility] [place] Pain Assessment - Pain Documented on a Pain Scale (1125F) [facility] [place] Pain Assessment - Pain Documented on a Pain Scale (1125F) [facility] [place] Pain Assessment - Pain Documented on a Pain Scale (1125F) [facility] [place] Chronic obstructive pulmonar [...] (do not use for phone, instead use 01595-61) [facility] [place] 09[place] Chronic obstructive pulmonar y disease, unspecifiedBody [...] (do not use for phone, instead use 97174-86) [facility] [place] Estab. patient 30-39min; chronic exacerbation, 2 stable chronic or 1 acute illness add add modifier 95 for video, (do not use for phone, instead use 97950-15) [facility] [place] Estab. patient 30-39min; chronic exacerbation, 2 stable chronic or 1 acute illness add add modifier 95 for video, (do not use for phone, instead use 47207-06) [facility] [place]22 Estab. patient 30-39min; chronic exacerbation, 2 stable chronic or 1 acute illness add add modifier 95 for video, (do not use for phone, instead use 93795-05) [facility] [place] 09[place]22 Estab. patient 30-39min; chronic exacerbation, 2 stable chronic or 1 acute illness add add modifier 95 for video, (do not use for phone, instead use 34401-05) [facility] [place] 09/23/2022 Estab. patient 30-39min; chronic exacerbation, 2 stable chronic or 1 acute illness add add modifier 95 for video, (do not use for phone, instead use 86454-33) [facility] [place] 09/23/2022 Estab. patient 30-39min; chronic exacerbation, 2 stable chronic or 1 acute illness add add modifier 95 for video, (do not use for phone, instead use 42814-45) [facility] [place]22 Estab. patient 30-39min; chronic exacerbation, 2 stable chronic or 1 acute illness add add modifier 95 for video, (do not use for phone, instead use 51001-17) [facility] [place] 09/23/2022 Estab. patient 30-39min; chronic exacerbation, 2 stable chronic or 1 acute illness add add modifier 95 for video, (do not use for phone, instead use 46428-54) [facility] ([place] 11/28/2023 Morbid (severe) obesity due to excess [...] (do not use for phone, instead use 95329-55) [facility] [place] 11/28/2023 Estab. patient 30-39min; chronic exacerbation, 2 stable chronic or 1 acute illness add add modifier 95 for video, (do not use for phone, instead use 69594-10) [facility] [place] 11/28/2023 Estab. patient 30-39min; chronic exacerbation, 2 stable chronic or 1 acute illness add add modifier 95 for video, (do not use for phone, instead use 88578-46) [facility] ([place] 11/28/2023 Estab. patient 30-39min; chronic exacerbation, 2 stable chronic or 1 acute illness add add modifier 95 for video, (do not use for phone, instead use 40943-32) [facility] [place] 11/28/2023 Estab. patient 30-39min; chronic exacerbation, 2 stable chronic or 1 acute illness add add modifier 95 for video, (do not use for phone, instead use 10991-89) [facility] [place] 11/28/2023 Estab. patient 30-39min; chronic exacerbation, 2 stable chronic or 1 acute illness add add modifier 95 for video, (do not use for phone, instead use 86761-94) [facility] [place] 11/28/2023 Estab. patient 30-39min; chronic exacerbation, 2 stable chronic or 1 acute illness add add modifier 95 for video, (do not use for phone, instead use 41793-26) [facility] [place] 11/28/2023 Estab. patient 30-39min; chronic exacerbation, 2 stable chronic or 1 acute illness add add modifier 95 for video, (do not use for phone, instead use 47348-70) [facility] [place] 11/28/2023 Estab. patient 20-29min; 1 stable chronic or 2 minor; add add modifier 95 for video, modifier 93 for phone [facility] [place] 08/31/2024 Morbid (severe) obesity due to excess caloriesSevere persistent asthma, uncomplicatedChronic obstructive pulmonary disease, unspecifiedMajor depressive disorder, recurrent, moderateUnspecified dementia without behavioral disturbanceHyperlipidemia, unspecifiedNeuralgia and neuritis, unspecifiedEssential (primary) hypertensionOther problems related to medical facilities and other health carePersonal history of malignant neoplasm of breast Estab. patient 20-29min; 1 stable chronic or 2 minor; add add modifier 95 for video, modifier 93 for phone [facility] [place] 08/[place]/2024 Estab. patient 20-29min; 1 stable chronic or 2 minor; add add modifier 95 for video, modifier 93 for phone [facility] [place] 08/[place]/20[place] Estab. patient 20-29min; 1 stable chronic or 2 minor; add add modifier 95 for video, modifier 93 for phone [facility] [place] 08[place]31/2024 Estab. patient 20-29min; 1 stable chronic or 2 minor; add add modifier 95 for video, modifier 93 for phone [facility] [place] 08/31/2024 Estab. patient 20-29min; 1 stable chronic or 2 minor; add add modifier 95 for video, modifier 93 for phone [facility] [place] 08/[place] Estab. patient 20-29min; 1 stable chronic or 2 minor; add add modifier 95 for video, modifier 93 for phone [facility] [place] 08/[place]/2024 Estab. patient 20-29min; 1 stable chronic or 2 minor; add add modifier 95 for video, modifier 93 for phone [facility] [place] 08/31/2024 Estab. patient 10-29min; 1 minor problem; add add modifier 95 for video, modifier 93 for phone [facility] [place] 03/07/2025 Unspecified osteoarthritis, unspecified siteUnsteadiness on [...] tive Time Current Smoking Status Never smoker 2025-06-05 1 Sex Female History of Procedures Procedures Service Procedure code Service date Servicing provider Phone# No Data Available [id number] 2022-05-20 No Data Available No Data Available [...] (do not use for phone, instead use 95348-23) [id number] 2022-05-23 No Data Available No Data Availa ble Estab. patient 30-39min; chronic exacerbation, 2 stable chronic or 1 acute illness add add modifier 95 for video, (do not use for phone, instead use 57455-91) 13784 2022-09-23 No Data Available No Data Availa [...] (do not use for phone, instead use 54193-25) [id number] 2023-11-28 No Data Available No Data Availa [...] 95 for video, modifier 93 for phone [id number] 2024-08-31 No Data Available No Data Availa [...] 95 for video, modifier 93 for phone [id number] 2025-03-07 No Data Available No Data Availa [...] documented (1160F)Continue to see PCP. Follow-up with [facility] as needed for any acute or disease [...] follow up with PCP as scheduled.03/07/25:-daughter is DIRECTOR VOLUNTEER SERVICES and assists members with ADLs/iADLs-needs new shower chair- CSS task placed today-verified with CSS that raised toilet seat with side railing is considered a home modification and would need to go through case management director/[facility] directly. SMS sent to member's daughter informing [...] to use it. Daughter, Jessica, is her DIRECTOR VOLUNTEER SERVICES as well. 2025-03-07 Most recent hospital stay or ER visit:No ER visits or hospitalizations documented in [facility] in 90 days. Member denies ER visits or hospitalizations in last 90 days. 2025-03-07 Open HEDIS Measures: No open measures
[2025-06-24 08:51] VITALS: BP 132/80; PULSE 71; O2SAT 96; BMI 40.7
--- OUTSIDE RECORDS SUMMARY | 2025-06-24 08:51 | XMS_ITS | Clinical Summary ---
Author Organization [address] [facility] Address [address] [place] [address] Phone Care Team Providers Care Technical Internship Name Role Phone Unavailable Primary Care Provider Unavailabl e Encounters Date Type Department Care Team Description 04/05/2025 Lab Requisition [facility] - Main Lab [address] [facility] [place] [address] Peter Jack DMD Benign neoplasm [...] excision: Benign simple cyst 04/06/2025 9:29 AM [facility] Comment The findings were discussed with Dr. Jack at 9:25 on 04/06/25. 04/06/2025 9:29 AM [facility] Clinical Information 4mm clean mass right lingual mandible (subperiostea l) ? mucocele 04/06/2025 9:29 AM [facility] Gross Description A. Oral Cavity, [...] cassette, two pieces. KRISTIAN 04/06/2025 9:29 AM [facility] Disclaimer Unless otherwise specified, all tissue is 10% NB formalin fixed and paraffin embedded. 04/06/2025 9:29 AM [facility]) [facility] Tissue Oral cavity structure / Unknown 03/30/2025 04/05/2025 7:27 AM EDT Peter Tinocoevelyn DMD LAB PATHOLOGY ORDERABLES Michelle faiza Result [facility] ([facility]) [facility] [address] [place] [address], from Last 3 Months Insurance [address] [place] [id number] [employer] MEDICARE MEDICAID - [place] [facility]
--- OUTSIDE RECORDS SUMMARY | 2025-06-24 08:51 | XMS_ITS | Patient Health Record ---
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 Plan Of Treatment Pending Test Test Name Order Date X ray : Foot, left 2V 08/30/2019 Insurance Providers Payer Name Payer Address Payer Phone Subscriber Number Group Number Insured Name Patient Relationship to Insured Coverage Start Date Coverage End Date [facility] [address] [place] [address] [id number] DREWEstefany Lindsey Self - patient is the insured Medical (General) History Medical History History ICD Code Arthritis asthma Back,Hip,and Knee pain Cancer Depression Diverticulosis Gall bladder problems High blood pressure Osteoporosis thyroid Surgical History Surgery Date(Month/Year) knee replacement 2007 gall bladder 2001 breast cancer 2017
--- OUTSIDE RECORDS SUMMARY | 2025-06-24 08:51 | XMS_ITS | Encounter Summary ---
Author Organization [facility] Address [address] [place] [address] Care Team Providers Care Molder Closed Molds Name Role Phone Unavailable Primary Care Provider Unavailabl e Encounter Details Date Type Department Care Team (Late st Contact Info) Description 04/05/[address] 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 Jack at 9:25 on 04/06/25. 04/06/2025 9:29 AM EDT [facility] Clinical Information 4mm clean mass right lingual mandible (subperiostea l) ? mucocele 04/06/2025 9:29 AM EDT [facility] Gross Description A. Oral [...] two pieces. KRISTIAN 04/06/2025 9:[address] [facility] Disclaimer Unless otherwise specified, all tissue is 10% NB formalin fixed and paraffin embedded. 04/06/2025 9:[address] [facility] Tissue Oral cavity structure / Unknown 03/30/2025 04/05/2025 7:27 AM EDT Peter Jack DMD LAB PATHOLOGY ORDERABLES Michelle kendall Result 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
== END 2025-06-24 09:21 | disposition home or self-care (01) ==
LOC: HO.ENCR 08:48
PROVIDERS: PCP Internal Medicine; Visit Provider Student in an Organized Health Care Education/Training Program
DX: E04.2 Nontoxic multinodular goiter (principal)
CPT/HCPCS: 99214

== ENCOUNTER → 2025-06-24 08:47 | Outpatient (BNVA) | payer OTHER, SELFPAY | PROVIDERS: PCP Internal Medicine; Visit Provider Student in an Organized Health Care Education/Training Program | DX: E04.2 Nontoxic multinodular goiter (principal); Z85.3 Personal history of malignant neoplasm of breast | CPT/HCPCS: 99212 ==

== ENCOUNTER 2025-07-20 12:16 | Outpatient (REF) | payer OTHER, SELFPAY ==
--- NOTE | ~2025-07-20 | XR_ITS ---
EXAMINATION: XR FOOT, LEFT CLINICAL INFORMATION: M20.12 - Hallux valgus (acquired), left foot COMPARISON: Previous x-ray January 2025 TECHNIQUE: AP, lateral, and oblique weightbearing views of the left foot. FINDINGS: There is hallux valgus deformity at the first MTP joint. There are cystic degenerative changes in the first metatarsal head. This is similar to prior exam. There is slight deformity of the second toe with flexion at the PIP joint and extension DIP joint. Bone alignment is otherwise normal. No fracture or dislocation. Mild degenerative changes at first MTP joint and talonavicular joint. Mild soft tissue swelling adjacent to the metatarsal head. Small calcaneal spurs. XR/XR foot LT min 3V IMPRESSION: Hallux valgus deformity and mild degenerative change at the first MTP joint. Electronically signed by: Lety Alas MD 07/20/2025 01:17 PM [facility]
--- OUTSIDE RECORDS SUMMARY | 2025-07-20 16:12 | XMS_ITS | Clinical Summary ---
Author Organization [facility] Address [address] [facility] [address] [place] [address] Care Team Providers Care Paster Supervisor Name Role Phone Unavailable Primary Care Provider [...] Relevant to Health Maintenance Insurance DENTAL - [facility]
--- OUTSIDE RECORDS SUMMARY | 2025-07-20 16:12 | XMS_ITS | Clinical Summary ---
Author Organization [address] [facility] Address [address] [place] [address] Phone Care Team Providers Care Green Chain Marker Name Role Phone Unavailable Primary Care Provider Unavailabl e Social History Tobacco Use Types Packs/Day Years [...] series) 12/22/2018 Depression Screening 08/04/2024 COVID-19 Vaccine ( - 2024-2 6 season) 2025 Influenza Vaccine [...] on patient's age to complete this topic Insurance [id number] [place] [id number] [place] [address] MEDICAID - [place] [facility]
--- OUTSIDE RECORDS SUMMARY | 2025-07-20 16:12 | XMS_ITS | Encounter Summary ---
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 Jack at 9:25 on 04/06/25. 04/06/2025 9:29 AM EDT [facility] Clinical Information 4mm clean mass right lingual mandible (subperiostea l) ? mucocele 04/06/2025 9:29 AM EDT [facility] Gross Description A. Oral [...] two pieces. KRISTIAN 04/06/2025 9:29 AM EDT [facility] Disclaimer Unless otherwise specified, all tissue is 10% NB formalin fixed and paraffin embedded. 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
--- OUTSIDE RECORDS SUMMARY | 2025-07-20 16:12 | XMS_ITS | Patient Health Record ---
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 Plan Of Treatment Pending Test Test Name Order Date X ray : Foot, left 2V 08/30/2019 Insurance Providers Payer Name Payer Address Payer Phone Subscriber Number Group Number Insured Name Patient Relationship to Insured Coverage Start Date Coverage End Date [facility] [address] [place] [address] [id number] DREWEstefany Lindsey Self - patient is the insured Medical (General) History Medical History History ICD Code Arthritis asthma Back,Hip,and Knee pain Cancer Depression Diverticulosis Gall bladder problems High blood pressure Osteoporosis thyroid Surgical History Surgery Date(Month/Year) knee replacement 2007 gall bladder 2001 breast cancer 2017
--- OUTSIDE RECORDS SUMMARY | 2025-07-20 16:12 | XMS_ITS ---
Author Name Diana Lopez NP Address [address] [place] [address] Phone [phone] [facility] Care Team Providers Care Construction Project Coordinator Name Role Phone Diana Lopez Unavailable [phone] MELL SMITH Unavailable [phone] Reason for Referral Not Available Allergies, adverse [...] FOR 7 DAYS 2022-03-29 No Data Available Yytofnth-Eudlikvyv-PG [id number] Suspension SHAKE LIQUID AND INSTILL 4 DROPPERFUL [...] follow up with PCP as scheduled.03/07/25:-daughter is [employer] and assists members with ADLs/iADLs-needs new shower chair- CSS task placed today-verified with CSS that raised toilet seat with side railing is considered a home modification and would need to go through pillowcase maker/[facility] directly. SMS sent to member's daughter informing of this. Encounters Encounters Type Facility Date of Service Diagnosis/Co mplaint No Data Available [facility] [place] Gastritis, unspecified, with out bleeding Pain Assessment - Pain Documented on a Pain Scale (1125F) [facility] [place] Pain Assessment - Pain Documented on a Pain Scale (1125F) [facility] [place] Pain Assessment - Pain Documented on a Pain Scale (1125F) [facility] [place] Pain Assessment - Pain Documented on a Pain Scale (1125F) [facility] [place] Pain Assessment - Pain Documented on a Pain Scale (1125F) [facility] [place] Pain Assessment - Pain Documented on a Pain Scale (1125F) [facility] [place] Pain Assessment - Pain Documented on a Pain Scale (1125F) [facility] [place] Pain Assessment - Pain Documented on a Pain Scale (1125F) [facility] [place] Pain Assessment - Pain Documented on a Pain Scale (1125F) [facility] [place] Chronic obstructive pulmonar [...] (do not use for phone, instead use 96720-04) [facility] Chronic obstructive pulmonar y disease, unspecifiedBody [...] (do not use for phone, instead use 28705-78) [facility] Estab. patient 30-39min; chronic exacerbation, 2 stable chronic or 1 acute illness add add modifier 95 for video, (do not use for phone, instead use 20907-64) [facility] Estab. patient 30-39min; chronic exacerbation, 2 stable chronic or 1 acute illness add add modifier 95 for video, (do not use for phone, instead use 64260-49) [facility] Estab. patient 30-39min; chronic exacerbation, 2 stable chronic or 1 acute illness add add modifier 95 for video, (do not use for phone, instead use 28715-27) [facility] Estab. patient 30-39min; chronic exacerbation, 2 stable chronic or 1 acute illness add add modifier 95 for video, (do not use for phone, instead use 36023-56) [facility] Estab. patient 30-39min; chronic exacerbation, 2 stable chronic or 1 acute illness add add modifier 95 for video, (do not use for phone, instead use 88791-57) [facility] Estab. patient 30-39min; chronic exacerbation, 2 stable chronic or 1 acute illness add add modifier 95 for video, (do not use for phone, instead use 55494-64) [facility] [place]22 Estab. patient 30-39min; chronic exacerbation, 2 stable chronic or 1 acute illness add add modifier 95 for video, (do not use for phone, instead use 18995-29) [facility] Estab. patient 30-39min; chronic exacerbation, 2 stable chronic or 1 acute illness add add modifier 95 for video, (do not use for phone, instead use 98698-76) [facility] [place] 11/28/2023 Morbid (severe) obesity due to excess [...] (do not use for phone, instead use 15168-96) [facility] [place]2023 Estab. patient 30-39min; chronic exacerbation, 2 stable chronic or 1 acute illness add add modifier 95 for video, (do not use for phone, instead use 54741-54) [facility] [place]/2023 Estab. patient 30-39min; chronic exacerbation, 2 stable chronic or 1 acute illness add add modifier 95 for video, (do not use for phone, instead use 60698-29) [facility] [place] 11/28/2023 Estab. patient 30-39min; chronic exacerbation, 2 stable chronic or 1 acute illness add add modifier 95 for video, (do not use for phone, instead use 60144-23) [facility] [place]/2023 Estab. patient 30-39min; chronic exacerbation, 2 stable chronic or 1 acute illness add add modifier 95 for video, (do not use for phone, instead use 32213-79) [facility] [place]2023 Estab. patient 30-39min; chronic exacerbation, 2 stable chronic or 1 acute illness add add modifier 95 for video, (do not use for phone, instead use 56331-76) [facility] [place]/2023 Estab. patient 30-39min; chronic exacerbation, 2 stable chronic or 1 acute illness add add modifier 95 for video, (do not use for phone, instead use 97906-96) [facility] [place]/2023 Estab. patient 30-39min; chronic exacerbation, 2 stable chronic or 1 acute illness add add modifier 95 for video, (do not use for phone, instead use 03547-08) [facility] [place]/2023 Estab. patient 20-29min; 1 stable chronic or 2 minor; add add modifier 95 for video, modifier 93 for phone [facility] [place] 08[place]31/2024 Morbid (severe) obesity due to excess caloriesSevere persistent asthma, uncomplicatedChronic obstructive pulmonary disease, unspecifiedMajor depressive disorder, recurrent, moderateUnspecified dementia without behavioral disturbanceHyperlipidemia, unspecifiedNeuralgia and neuritis, unspecifiedEssential (primary) hypertensionOther problems related to medical facilities and other health carePersonal history of malignant neoplasm of breast Estab. patient 20-29min; 1 stable chronic or 2 minor; add add modifier 95 for video, modifier 93 for phone [facility] [place]/20[place] Estab. patient 20-29min; 1 stable chronic or 2 minor; add add modifier 95 for video, modifier 93 for phone [facility] 08[place]/20[place] Estab. patient 20-29min; 1 stable chronic or 2 minor; add add modifier 95 for video, modifier 93 for phone [facility] [place]/20[place] Estab. patient 20-29min; 1 stable chronic or 2 minor; add add modifier 95 for video, modifier 93 for phone [facility] [place]/2024 Estab. patient 20-29min; 1 stable chronic or 2 minor; add add modifier 95 for video, modifier 93 for phone [facility]/20[place] Estab. patient 20-29min; 1 stable chronic or 2 minor; add add modifier 95 for video, modifier 93 for phone [facility] [place] 08/[place]/20[place] Estab. patient 20-29min; 1 stable chronic or 2 minor; add add modifier 95 for video, modifier 93 for phone [facility] [place]/20[place] Estab. patient 10-29min; 1 minor problem; add add modifier 95 for video, modifier 93 for phone [facility] [place] 03/07/2025 Unspecified osteoarthritis, unspecified siteUnsteadiness on [...] tive Time Current Smoking Status Never smoker 2025-07-04 7 Sex Female History of Procedures Procedures Service Procedure code Service date Servicing provider Phone# No Data Available [id number] 2022-05-20 No Data Available No Data Available [...] (do not use for phone, instead use 80042-72) 18455 2022-05-23 No Data Available No Data Availa ble Estab. patient 30-39min; chronic exacerbation, 2 stable chronic or 1 acute illness add add modifier 95 for video, (do not use for phone, instead use 34013-26) 84913 2022-09-23 No Data Available No Data Availa [...] (do not use for phone, instead use 18822-21) 62992 2023-11-28 No Data Available No Data Availa [...] 95 for video, modifier 93 for phone 30953 2024-08-31 No Data Available No Data Availa [...] 95 for video, modifier 93 for phone 64910 2025-03-07 No Data Available No Data Availa [...] follow up with PCP as scheduled.03/07/25:-daughter is [employer] and assists members with ADLs/iADLs-needs new shower chair- CSS task placed today-verified with CSS that raised toilet seat with side railing is considered a home modification and would need to go through pillowcase maker/[facility] directly. SMS sent to member's daughter informing [...] today Health Concerns Date Concern 2025-03-07 Patient/Guardian ermi jimenez to visit via telehealth.Visit completed via:[ [...] to use it. Daughter, Jessica, is her [employer]ESS [employer] as well. 2025-03-07 Most recent hospital stay or ER visit:No ER visits or hospitalizations documented in [facility] in 90 days. Member denies ER visits or hospitalizations in last 90 days. 2025-03-07 Open HEDIS Measures: No open measures
--- OUTSIDE RECORDS SUMMARY | 2025-07-20 16:12 | XMS_ITS | Encounter Summary ---
Author Organization [employer] Address [address] [place] [address] [address] [place] [address] Care Team Providers Care Logistics Research Engineer Name Role Phone Unavailable Primary Care Provider Unavailabl e Encounter Details Date Type Department Care Team (Late st Contact Info) Description 04/07/2025 Orders Only [facility] [address] [place] [address] Provider, MD Anushka Social History Tobacco Use [...]
== END 2025-07-20 12:17 | disposition home or self-care (01) ==
LOC: HO.LAB 12:16
PROVIDERS: Absent Provider Internal Medicine; PCP Internal Medicine; Visit Provider Student in an Organized Health Care Education/Training Program
DX: M20.12 Hallux valgus (acquired), left foot (principal); M79.672 Pain in left foot
CPT/HCPCS: 73630

== ENCOUNTER → 2025-07-20 12:45 | Outpatient (BNV) | payer OTHER, SELFPAY | PROVIDERS: Absent Provider Internal Medicine; PCP Internal Medicine; Visit Provider Radiology Diagnostic Radiology | DX: M20.12 Hallux valgus (acquired), left foot (principal); M19.072 Primary osteoarthritis, left ankle and foot | CPT/HCPCS: 73630 ==

== ENCOUNTER → 2025-08-01 10:57 | Outpatient (REF) | payer OTHER, SELFPAY ==
--- OUTSIDE RECORDS SUMMARY | 2025-08-01 12:45 | XMS_ITS ---
Author Name Diana Lopez NP Address [address] [place] [address] Phone [phone] [facility] Care Team Providers Care Anthropology Faculty Member Name Role Phone Diana Lopez Unavailable [phone] MELL SMITH Unavailable [phone] Reason for Referral Not Available Allergies, adverse [...] [facility] 2021-10-09 No Data Available [facility] [...] FOR 7 DAYS 2022-03-29 No Data Available Nekolmks-Bvsyxmpvs-DK 3.5-75625-0 Suspension SHAKE LIQUID AND INSTILL 4 DROPPERFUL [...] follow up with PCP as scheduled.03/07/25:-daughter is [employer] and assists members with ADLs/iADLs-needs new shower chair- CSS task placed today-verified with CSS that raised toilet seat with side railing is considered a home modification and would need to go through major case detective/[facility] directly. SMS sent to member's daughter informing of this. Encounters Encounters Type Facility Date of Service Diagnosis/Co mplaint No Data Available [facility] [place] Gastritis, unspecified, with out bleeding Pain Assessment - Pain Documented on a Pain Scale (1125F) [facility] [place] Pain Assessment - Pain Documented on a Pain Scale (1125F) [facility] [place] Pain Assessment - Pain Documented on a Pain Scale (1125F) [facility] [place] Pain Assessment - Pain Documented on a Pain Scale (1125F) [facility] [place] Pain Assessment - Pain Documented on a Pain Scale (1125F) [facility] [place]20[place] Pain Assessment - Pain Documented on a Pain Scale (1125F) [facility] [place]2022 Pain Assessment - Pain Documented on a Pain Scale (1125F) [facility] [place]/2022 Pain Assessment - Pain Documented on a Pain Scale (1125F) [facility] [place]/2022 Pain Assessment - Pain Documented on a Pain Scale (1125F) [facility] [place]20[place] Chronic obstructive [...] (do not use for phone, instead use 30608-63) [facility], ([place]) 09/23/2022 Chronic obstructive pulmonar y disease, unspecifiedBody [...] (do not use for phone, instead use 04033-63) [facility], ([place]) 09/23/20[place] Estab. patient 30-39min; chronic exacerbation, 2 stable chronic or 1 acute illness add add modifier 95 for video, (do not use for phone, instead use 40581-21) [facility], ([place]) 09/23/2022 Estab. patient 30-39min; chronic exacerbation, 2 stable chronic or 1 acute illness add add modifier 95 for video, (do not use for phone, instead use 84093-52) [facility], ([place]) 09/23/2022 Estab. patient 30-39min; chronic exacerbation, 2 stable chronic or 1 acute illness add add modifier 95 for video, (do not use for phone, instead use 44126-19) [facility], ([place]) 09/23/2022 Estab. patient 30-39min; chronic exacerbation, 2 stable chronic or 1 acute illness add add modifier 95 for video, (do not use for phone, instead use 36648-66) [facility], ([place]) 09/23/2022 Estab. patient 30-39min; chronic exacerbation, 2 stable chronic or 1 acute illness add add modifier 95 for video, (do not use for phone, instead use 79901-65) [facility], ([place] 09/23/2022 Estab. patient 30-39min; chronic exacerbation, 2 stable chronic or 1 acute illness add add modifier 95 for video, (do not use for phone, instead use 18375-21) [facility] ([place] 09/23/2022 Estab. patient 30-39min; chronic exacerbation, 2 stable chronic or 1 acute illness add add modifier 95 for video, (do not use for phone, instead use 19511-69) [facility] ([place] 09/23/2022 Estab. patient 30-39min; chronic exacerbation, 2 stable chronic or 1 acute illness add add modifier 95 for video, (do not use for phone, instead use 75580-72) [facility] ([place] 11/28/2023 Morbid (severe) obesity due to excess [...] (do not use for phone, instead use 53177-73) [facility] [place] 11/28/2023 Estab. patient 30-39min; chronic exacerbation, 2 stable chronic or 1 acute illness add add modifier 95 for video, (do not use for phone, instead use 62876-79) [facility] [place] 11/28/2023 Estab. patient 30-39min; chronic exacerbation, 2 stable chronic or 1 acute illness add add modifier 95 for video, (do not use for phone, instead use 03694-99) [facility] ([place]) 11/28/2023 Estab. patient 30-39min; chronic exacerbation, 2 stable chronic or 1 acute illness add add modifier 95 for video, (do not use for phone, instead use 10593-85) [facility] [place] 11/28/2023 Estab. patient 30-39min; chronic exacerbation, 2 stable chronic or 1 acute illness add add modifier 95 for video, (do not use for phone, instead use 47236-87) [facility] [place] 11/28/2023 Estab. patient 30-39min; chronic exacerbation, 2 stable chronic or 1 acute illness add add modifier 95 for video, (do not use for phone, instead use 87272-63) [facility] [place] 11/28/2023 Estab. patient 30-39min; chronic exacerbation, 2 stable chronic or 1 acute illness add add modifier 95 for video, (do not use for phone, instead use 36978-20) [facility] [place] 11/28/2023 Estab. patient 30-39min; chronic exacerbation, 2 stable chronic or 1 acute illness add add modifier 95 for video, (do not use for phone, instead use 44332-05) [facility] [place] 11/28/2023 Estab. patient 20-29min; 1 stable chronic or 2 minor; add add modifier 95 for video, modifier 93 for phone [facility], [place] 08/31/2024 Morbid (severe) obesity due to excess caloriesSevere persistent asthma, uncomplicatedChronic obstructive pulmonary disease, unspecifiedMajor depressive disorder, recurrent, moderateUnspecified dementia without behavioral disturbanceHyperlipidemia, unspecifiedNeuralgia and neuritis, unspecifiedEssential (primary) hypertensionOther problems related to medical facilities and other health carePersonal history of malignant neoplasm of breast Estab. patient 20-29min; 1 stable chronic or 2 minor; add add modifier 95 for video, modifier 93 for phone [facility], ([place]) 08/31/2024 Estab. patient 20-29min; 1 stable chronic or 2 minor; add add modifier 95 for video, modifier 93 for phone [facility], ([place] 08/31/2024 Estab. patient 20-29min; 1 stable chronic or 2 minor; add add modifier 95 for video, modifier 93 for phone [facility], ([place]) 08/31/2024 Estab. patient 20-29min; 1 stable chronic or 2 minor; add add modifier 95 for video, modifier 93 for phone [facility], ([place]) 08/31/2024 Estab. patient 20-29min; 1 stable chronic or 2 minor; add add modifier 95 for video, modifier 93 for phone [facility] [place] 08/31/2024 Estab. patient 20-29min; 1 stable chronic or 2 minor; add add modifier 95 for video, modifier 93 for phone [facility] [place] 08/31/2024 Estab. patient 20-29min; 1 stable chronic or 2 minor; add add modifier 95 for video, modifier 93 for phone [facility] [place] 08/31/2024 Estab. patient 10-29min; 1 minor problem; add add modifier 95 for video, modifier 93 for phone [facility] [place] 03/07/2025 Unspecified osteoarthritis, unspecified [...] tive Time Current Smoking Status Never smoker 2025-07-05 7 Sex Female History of Procedures Procedures Service Procedure code Service date Servicing provider Phone# No Data Available [id number] 2022-05-20 No Data Available No Data Available [...] (do not use for phone, instead use 46208-86) 12536 2022-05-23 No Data Available No Data Availa ble Estab. patient 30-39min; chronic exacerbation, 2 stable chronic or 1 acute illness add add modifier 95 for video, (do not use for phone, instead use 99789-56) 31627 2022-09-23 No Data Available No Data Availa [...] (do not use for phone, instead use 71719-98) 89893 2023-11-28 No Data Available No Data Availa [...] 95 for video, modifier 93 for phone 18507 2024-08-31 No Data Available No Data Availa [...] 95 for video, modifier 93 for phone 09628 2025-03-07 No Data Available No Data Availa [...] follow up with PCP as scheduled.03/07/25:-daughter is [employer] and assists members with ADLs/iADLs-needs new shower chair- CSS task placed today-verified with CSS that raised toilet seat with side railing is considered a home modification and would need to go through major case detective/[facility] directly. SMS sent to member's daughter informing [...] to use it. Daughter, Jessica, is her COOK CANDY as well. 2025-03-07 Most recent hospital stay or ER visit:No ER visits or hospitalizations documented in [facility] in 90 days. Member denies ER visits or hospitalizations in last 90 days. 2025-03-07 Open HEDIS Measures: No open measures
--- OUTSIDE RECORDS SUMMARY | 2025-08-01 12:46 | XMS_ITS | Clinical Summary ---
Author Organization [employer] Address [address] [address] [place] [address] Care Team Providers Care Line Cook Name Role Phone Unavailable Primary Care Provider [...] Relevant to Health Maintenance Insurance DENTAL - [facility]
--- OUTSIDE RECORDS SUMMARY | 2025-08-01 12:46 | XMS_ITS | Encounter Summary ---
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 Jack at 9:25 on 04/06/25. 04/06/2025 9:29 AM EDT [facility] Clinical Information 4mm clean mass right lingual mandible (subperiostea l) ? mucocele 04/06/2025 9:29 AM EDT [facility] Gross Description A. Oral Cavity, [...] two pieces. [facility] 04/06/2025 9:29 AM EDT [facility] Disclaimer Unless otherwise specified, all tissue is 10% NB formalin fixed and paraffin embedded. 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
--- OUTSIDE RECORDS SUMMARY | 2025-08-01 12:46 | XMS_ITS | Clinical Summary ---
Author Organization [facility] Address [address] [place] [address] Phone Care Team Providers Care Real Estate Recruiter Name Role Phone Unavailable Primary Care Provider [...] patient's age to complete this topic Insurance [address] [place] [id number] [employer] MEDICARE [place]ICAID - [place] [facility]
--- OUTSIDE RECORDS SUMMARY | 2025-08-01 12:46 | XMS_ITS | Patient Health Record ---
Author Organization [facility] Address [address] [place] [address] Care Team Providers Care Health Worker Name Role Phone Nichole HERMAN, Kathy Primary [...] day; Duration: 30 day(s) Active Aspir-81 Active [place] 3 1000 MG 1 capsule Orally Onc [...] Status Risk Notes Problem Acquired hallux valgus (09360897) Acquired hallux interphalangeus of left foot (M20.12) Active confirmed Plan Of Treatment Pending Test Test Name Order Date X ray : Foot, left 2V 08/30/2019 Insurance Providers Payer Name Payer Address Payer Phone Subscriber Number Group Number Insured Name Patient Relationship to Insured Coverage Start Date Coverage End Date [id number] [address] [address] [place] [address] [id number] DREWEstefany Lindsey Self - patient is the insured Medical (General) History Medical History History ICD Code Arthritis asthma Back,Hip,and Knee pain Cancer Depression Diverticulosis Gall bladder problems High blood pressure Osteoporosis thyroid Surgical History Surgery Date(Month/Year) knee replacement 2007 gall bladder 2001 breast cancer 2017
--- OUTSIDE RECORDS SUMMARY | 2025-08-01 12:46 | XMS_ITS | Encounter Summary ---
Author Organization [employer] Address [address] [place] [address] [address] [place] [address] Care Team Providers Care Photographer'S Model Name Role Phone Unavailable Primary Care Provider Unavailabl e Encounter Details Date Type Department Care Team (Late st Contact Info) Description 04/07/2025 Orders Only [facility] [address] [place] [address] Provider, MD Anushka Social History Tobacco Use [...]
== END ==
LOC: HO.SL 10:57
PROVIDERS: PCP Internal Medicine; Visit Provider Physician Assistant Medical
DX: G47.19 Other hypersomnia (principal); R06.83 Snoring; R40.0 Somnolence
CPT/HCPCS: 95806

== ENCOUNTER → 2025-08-01 11:05 | Outpatient (BNV) | payer OTHER, SELFPAY | PROVIDERS: PCP Internal Medicine; Visit Provider Psychiatry & Neurology Neurology | DX: G47.10 Hypersomnia, unspecified (principal) | CPT/HCPCS: 95806 ==